=== PATIENT | female | born 1940 | race Caucasian/White ===

== ENCOUNTER 2018-10-18 08:12 | Inpatient (IN) | payer MEDICARE ==
[2018-10-18] MEDS ORDERED: IBUPROFEN 600 MG TAB PO STA (08:52)
[2018-10-18] MEDS ORDERED: LIDOCAINE 5% PATCH TOPICAL STA (08:53)
--- NOTE | 2018-10-18 08:56 | ED ---
General Adult HPI - General Chief complaint: Extremity Problem,Nontraumatic Stated complaint: RT hip pain Time Seen by Provider: 10/18/18 08:48 Source: patient, RN notes reviewed Mode of arrival: EMS Limitations: no limitations - History of Present Illness Initial comments: Patient 77-year-old female presented to the emergency room today with chief comp laint of right-sided hip pain. She does admit that over the last for 5 days she's been expressing pain discomfort to the right hip. She does admit that it's worse with certain movements when she goes from a laying to a sitting position. She states she first noticed this when she was getting out of bed a few days ago. 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 Does not remember any specific injury or trauma. She does admit that she feels some pain in the lower back that radiates just past the right hip. She states when she is laying down resting comfortably she feels good with movements pain increases. Patient states she's been using ibuprofen with some relief the symptoms. She denies any other complaints or symptoms. Denies any bowel or bladder incontinence retention. Denies any saddle anesthesia. Patient denies any recent fever, chills, shortness of breath, chest pain, abdominal pain, nausea or vomiting, headaches or visual changes, or any other complaints. - Related Data Previous Rx's Medication Instructions Recorded Lidocaine [Lidoderm 5% Patch] 1 patch TRANSDERM DAILY #7 patch 10/18/18 Allergies Allergy/AdvReac Type Severity Reaction Status Date / Time codeine Allergy Nausea & Verified 10/18/18 09:04 Vomiting Review of Systems ROS Statement: Those systems with pertinent positive or pertinent negative responses have been documented in the HPI. ROS Other: All systems not noted in ROS Statement are negative. Past Medical History Past Medical History: Heart Failure, Diabetes Mellitus, Hypertension History of Any Multi-Drug Resistant Organisms: None Reported Past Surgical History: Section, Cholecystectomy Past Psychological History: Anxiety Smoking Status: Never smoker Past Alcohol Use History: None Reported Past Drug Use History: None Reported General Exam - General Exam Comments Initial Comments: General: The patient is awake and alert, in no distress, and does not appear acutely ill. Eye: There is normal conjunctiva bilaterally. No signs of icterus. Ears, nose, mouth and throat: There are moist mucous membranes and no oral lesions. Neck: The neck is supple Cardiovascular: There is a regular rate and rhythm. No murmur, rub or gallop is appreciated. Respiratory: Lungs are clear to auscultation, respirations are non-labored, breath sounds are equal. No wheezes, stridor, rales, or rhonchi. Gastrointestinal: Admits soft nontender. Musculoskeletal: Normal ROM, no tenderness. Pedal pulses 2+. Pain worse going from laying to sitting position. No bony tenderness to the right hip. Mildly tender paravertebrally right lower lumbar. Neurological: A&O x 3. CN II-XII intact, There are no obvious motor or sensory deficits. Coordination appears grossly intact. Speech is normal. Skin: Skin is warm and dry and no rashes or lesions are noted. Psychiatric: Cooperative, appropriate mood & affect, normal judgment. Limitations: no limitations Course Vital Signs 10/18/18 10/18/18 10/18/18 08:19 08:30 09:00 Temperature 97.1 F L Pulse Rate 94 91 86 Respiratory 21 22 22 Rate Blood Pressure 146/100 146/101 153/56 O2 Sat by Pulse 100 100 99 Oximetry 10/18/18 09:30 Temperature Pulse Rate 89 Respiratory 18 Rate Blood Pressure 168/61 O2 Sat by Pulse 100 Oximetry Medical Decision Making - Medical Decision Making Patient's x-rays of both the lumbar spine and hip and pelvis show degenerative changes. No acute fracture dislocation. Results were discussed with the patient. Patient does admit to improvement after lidocaine patch in the emergency room. Patient will be given a prescription to continue. She is advised following up with family doctor in the next 2 days for further evalua tion and possible MRI. Patient advised return here to emergency room if any symptoms increase or worsen or for any other concerns. Disposition Clinical Impression: Acute lumbar radiculopathy Disposition: HOME SELF-CARE Condition: Good Instructions (If sedation given, give patient instructions): Lumbar Radiculopathy (ED) Additional Instructions: Please use medication as discussed. Please follow-up with family doctor in the next 2 days. Please return to emergency room if the symptoms increase or worsen or for any other concerns. Prescriptions: Lidocaine [Lidoderm 5% Patch] 1 patch TRANSDERM DAILY #7 patch Is patient prescribed a controlled substance at d/c from ED?: No Referrals: None,Stated [REFERRING] - 1-2 days Time of Disposition: 10:11
--- NOTE | 2018-10-18 09:49 | XR ---
EXAMINATION TYPE: XR lumbar spine 3V, AP view pelvis and 2 views right hip DATE OF EXAM: 10/18/2018 COMPARISON: NONE HISTORY: 77-year-old female with pain FINDINGS: Lumbar spine: Cholecystectomy clips. Degenerative levoconvex scoliosis. Moderate to advanced disc/endplate degenera tive change throughout, greatest at L1-L2 and L2-L3. Vertebral body heights are preserved. Hypertroph ic facet arthropathy throughout.*Disease lower lumbar spine. Bridging anterior endplate spondylosis l ower thoracic spine. Grade 1 anterolisthesis at L5-S1 and grade 1 retrolisthesis at L2-L3. Pelvis and right hip: Mild axial joint space narrowing in both hips with marginal spurring bilaterally. Mild generalized o steopenia. Some degenerative subarticular sclerosis at the SI joints is noted. Some vascular calcific ations are also present. No acute fracture, subluxation, or dislocation seen. IMPRESSION: Lumbar spine: 1. Degenerated levoconvex scoliosis. 2. Moderate to advanced disc/endplate degenerative change throughout, greatest at L1-L2 and L2-L3 3. 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 4. Grade 1 anterolisthesis at L5-S1 and grade 1 retrolisthesis at L2-L3. Pelvis and right hip: 1. Mild bilateral hip OA and mild osteopenia. No acute osseous abnormality seen.
[2018-10-18] MEDS ORDERED: MORPHINE SULFATE 4 MG/ML SYRINGE IM STA (11:07)
[2018-10-18] MEDS ORDERED: MORPHINE SULFATE 4 MG/ML SYRINGE IV STA (12:14)
--- NOTE | 2018-10-18 12:42 | CT ---
EXAMINATION TYPE: CT lumbar spine wo con DATE OF EXAM: 10/18/2018 12:35 PM COMPARISON: Lumbar spine x-ray from earlier today. HISTORY: low back pain CT DLP: 1195 mGycm Automated exposure control for dose reduction was used. Unenhanced CT of the lumbar spine was performed. Bone and soft tissue window settings are submitted as well as coronal and sagittal reconstructions. There are 5 lumbar-type vertebra redemonstrated. There is levoconvex scoliotic curvature redemonstrat ed upper lumbar spine. Grade 1 anterolisthesis of L5 on S1 is redemonstrated. Vertebral body heights are maintained. There is advanced disc space narrowing with vacuum disc phenomenon and endplate scler osis with moderate to advanced spurring L1-L2 and L2-L3 levels. There is moderate to advanced disc sp alfonzo narrowing with left lateral spurring and vacuum disc phenomenon L5-S1 level. No acute fracture or dislocation is evident. No large posterior disc herniations are seen on sagittal images. Review of axial images shows mild facet degenerative changes L4-L5 level and advanced facet degenerat lauren changes L5-S1 level. There is moderate to advanced left-sided neural foraminal narrowing L5-S1 le nura encroaching on left L5 nerve seen sagittal image 36 due to facet arthropathy and disc herniation. Diverticulosis of the sigmoid colon is seen. Cholecystectomy clips are present. There is moderate albaro cified plaque of aorta extending into iliac branch vessels. IMPRESSION: No acute fracture or dislocation. Multilevel degenerative changes as detailed above.
[2018-10-18 12:56] LABS: Glucose,Whole Blood 110 mg/dL (75-99)
--- NOTE | 2018-10-18 13:03 | ED ---
Medical Decision Making - Medical Decision Making Patient examined here in the emergency room. Has had multiple tablets with pain medication for her right-sided back pain radiating to the right hip. A CT of the lumbar spine was obtained showing degenerative changes. Patient still has increased pain when she sits up at bedside. She's had episodes of vomiting here ER due to the pain when she sits up. Patient does admit that pain is much improved when she is laying down. She denies any other pain. Denies any chest pain, shortness of breath. Patient's labs been reviewed. She denies any recent cough or congestion. Case discussed with attending physician Dr. Reyna who did discuss case with medicine physician Dr. De who will admit the patient for intractable pain - Lab Data Result diagrams: 10/18/18 13:00 10/18/18 13:00 Lab Results 10/18/18 10/18/18 10/18/18 Range/Units 12:55 13:00 13:00 WBC 13.7 H (3.8-10.6) k/uL RBC 3.37 L (3.80-5.40) m/uL Hgb 9.6 L (11.4-16.0) gm/dL Hct 30.2 L (34.0-46.0) % MCV 89.8 (80.0-100.0) fL MCH 28.4 (25.0-35.0) pg MCHC 31.7 (31.0-37.0) g/dL RDW 13.9 (11.5-15.5) % Plt Count 385 (150-450) k/uL Neutrophils % 82 % Lymphocytes % 13 % Monocytes % 3 % Eosinophils % 1 % Basophils % 0 % Neutrophils # 11.3 H (1.3-7.7) k/uL Lymphocytes # 1.8 (1.0-4.8) k/uL Monocytes # 0.5 (0-1.0) k/uL Eosinophils # 0.1 (0-0.7) k/uL Basophils # 0.0 (0-0.2) k/uL Sodium 141 (137-145) mmol/L Potassium 4.9 (3.5-5.1) mmol/L Chloride 112 H (98-107) mmol/L Carbon Dioxide 19 L (22-30) mmol/L Anion Gap 10 mmol/L BUN 37 H (7-17) mg/dL Creatinine 1.94 H (0.52-1.04) mg/dL Est GFR (CKD-EPI)AfAm 28 (>60 ml/min/1.73 sqM) Est GFR (CKD-EPI)NonAf 25 (>60 ml/min/1.73 sqM) Glucose 117 H (74-99) mg/dL POC Glucose (mg/dL) 110 H (75-99) mg/dL POC Glu [place] [employer] ID Yared Coronado Calcium 9.8 (8.4-10.2) mg/dL Total Bilirubin 0.4 (0.2-1.3) mg/dL AST 18 (14-36) U/L ALT 24 (9-52) U/L Alkaline Phosphatase 131 H (38-126) U/L Total Protein 7.5 (6.3-8.2) g/dL Albumin 3.8 (3.5-5.0) g/dL Disposition Clinical Impression: Acute lumbar radiculopathy, Intractable pain Disposition: ADMITTED IP TO THIS HOSP Condition: Good Instructions (If sedation given, give patient instructions): Lumbar Radiculopathy (ED) Additional Instructions: Please use medication as discussed. Please follow-up with family doctor in the next 2 days. Please return to emergency room if the symptoms increase or worsen or for any other concerns. Prescriptions: Lidocaine [Lidoderm 5% Patch] 1 patch TRANSDERM DAILY #7 patch Is patient prescribed a controlled substance at d/c from ED?: No Referrals: None,Stated [REFERRING] - 1-2 days Time of Disposition: 13:35
[2018-10-18 13:15] LABS: Basophils % (A) 0 %; Eosinophils # (A) 0.1 k/uL (0-0.7); Eosinophils % (A) 1 %; HCT 30.2 % (34.0-46.0); HGB 9.6 gm/dL (11.4-16.0); Lymphocytes # (A) 1.8 k/uL (1.0-4.8); Lymphocytes % (A) 13 %; MCH 28.4 pg (25.0-35.0); MCHC 31.7 g/dL (31.0-37.0); MCV 89.8 fL (80.0-100.0); Mean Platelet Volume 6.8; Monocytes # (A) 0.5 k/uL (0-1.0); Monocytes % (A) 3 %; Neutrophils # (A) 11.3 k/uL (1.3-7.7); Neutrophils % (A) 82 %; Platelet Count 385 k/uL (150-450); RBC 3.37 m/uL (3.80-5.40); RDW 13.9 % (11.5-15.5); WBC 13.7 k/uL (3.8-10.6)
[2018-10-18 13:26] LABS: Albumin 3.8 g/dL (3.5-5.0); Calcium 9.8 mg/dL (8.4-10.2); Potassium 4.9 mmol/L (3.5-5.1); Total Bilirubin 0.4 mg/dL (0.2-1.3); Total Protein 7.5 g/dL (6.3-8.2)
[2018-10-18 13:36] LABS: INR 0.9 (<1.2); Prothrombin Time 9.5 sec (9.0-12.0)
[2018-10-18] MEDS ORDERED: MORPHINE SULFATE 4 MG/ML SYRINGE IV PRN (13:36)
[2018-10-18] MEDS ORDERED: ONDANSETRON 4 MG/2 ML VIAL IVP PRN (13:36)
[2018-10-18] MEDS ORDERED: NALOXONE 0.4 MG/ML 1 ML VIAL IV PRN (13:36)
[2018-10-18] MEDS ORDERED: SODIUM CHLORIDE 0.9% 1,000 ML IV ONE (13:36)
[2018-10-18 13:44] LABS: Partial Thromboplastin Time 20.5 sec (22.0-30.0)
--- NOTE | 2018-10-18 17:13 | P.HPIM ---
History of Present Illness H&P Date: 10/18/18 Chief Complaint: Lower back pain The patient is a obese 65-year-old female with a past medical history of essential hypertension congestive heart failure of unknown type, hyperlipidemia, osteoarthritis who presents to the ER via private vehicle with chief complaint of lower back pain that began on Wednesday. Patient denies any history of fall, she reports moderate centralized lower back pain with occasional radiation down into her posterior thigh/hip area. Patient denies any lower extremity weakness she denies any numbness or tingling or saddle paresthesias. She reports trying to use [id number] ibuprofen and Tylenol without any significant improvement in her symptoms, but with actual progressive worsening of her pain. Patient denies any fevers chills or night sweats. In the ER the patient had a workup with imaging of her lower back C/ X-rays of the L-spine and pelvis consistent with degenerative scoliosis, moderate to advanced disc/endplate degenerative change L1/L2 and L2/L3, bilateral hip osteoarthritis and mild osteopenia. Patient was given morphine and ibuprofen the ER and recommended for admission for intractable lower back pain. Review of Systems Pertinent positives per HPI all other systems otherwise negative Past Medical History Past Medical History: Heart Failure, Diabetes Mellitus, Hyperlipidemia, Hypertension, Osteoarthritis (OA) Additional Past Medical History / Comment(s): IDDM type II, History of Any Multi-Drug Resistant Organisms: None Reported Past Surgical History: Section, Cholecystectomy Additional Past Surgical History / Comment(s): Bilateral cataract removals/lens implants. Past Anesthesia/Blood Transfusion Reactions: No Reported Reaction Additional Past Anesthesia/Blood Transfusion Reaction / Comment(s): Pt recieved blood in past without reaction (after childbirth) Smoking Status: Never smoker - Past Family History Father Additional Family Medical History / Comment(s): Father from an industrial exposure at the age of 42 yrs. Mother Family Medical History: No Reported History Additional Family Medical History / Comment(s): Mother lived to be 95 yrs old. Medications and Allergies Home Medications Medication Instructions Recorded Confirmed Type ALPRAZolam [Xanax] 0.25 mg PO DAILY PRN 10/18/18 10/18/18 History FLUoxetine HCL [PROzac] 40 mg PO DAILY 10/18/18 10/18/18 History Insulin Lispro Protamin/Lispro 10 unit SQ HS 10/18/18 10/18/18 History [humaLOG Mix 75-25 Kwikpen] Insulin Lispro Protamin/Lispro 20 unit SQ QAM 10/18/18 10/18/18 History [humaLOG Mix 75-25 Kwikpen] Losartan [Cozaar] 50 mg PO DAILY 10/18/18 10/18/18 History Metoprolol Tartrate [Lopressor] 50 mg PO BID 10/18/18 10/18/18 History NIFEdipine [NIFEdipine ER] 90 mg PO DAILY 10/18/18 10/18/18 History Oxybutynin Chloride [Ditropan] 5 mg PO BID 10/18/18 10/18/18 History Spironolactone [Aldactone] 25 mg PO DAILY 10/18/18 10/18/18 History metFORMIN HCL 1,000 mg PO BID 10/18/18 10/18/18 History Allergies Allergy/AdvReac Type Severity Reaction Status Date / Time codeine Allergy Nausea & Verified 10/18/18 17:15 Vomiting Physical Exam Vitals: Vital Signs Temp Pulse Resp BP Pulse Ox 10/18/18 15:00 97.7 F 79 18 130/51 98 10/18/18 14:30 88 18 125/56 97 10/18/18 14:00 98.3 F 75 20 123/66 99 10/18/18 13:30 84 20 137/61 100 10/18/18 12:00 88 20 122/106 95 10/18/18 11:30 80 20 143/72 99 10/18/18 11:00 76 18 169/75 99 10/18/18 10:53 77 18 167/75 97 10/18/18 10:30 77 22 137/59 98 10/18/18 10:20 97.1 F L 80 18 138/59 97 10/18/18 10:00 87 18 146/71 100 10/18/18 09:30 89 18 168/61 100 10/18/18 09:00 86 22 153/56 99 10/18/18 08:30 91 22 146/101 100 10/18/18 08:19 97.1 F L 94 21 146/100 100 Intake and Output 10/18/18 10/18/18 10/18/18 06:59 14:59 22:59 Other: Weight 81.193 kg Constitutional: No acute distress, conversant, pleasant Eyes: Anicteric sclerae, moist conjunctiva, no lid-lag, PERRLA ENMT: NC/AT,Oropharynx clear, no erythema, exudates Neck:Supple, FROM, no masses, or JVD, No carotid bruits; No thyromegaly Lungs: Clear to auscultation, Clear to percussion, Normal respiratory effort, no accessory muscle use Cardiovascular: Heart regular in rate and rhythm, No murmurs, gallops, or rubs no peripheral edema Abdominal: Soft Nontender, nom distended, no guarding, no rebound or rigidity, Normoactive bowel sounds No hepatomegaly, No splenomegaly, No palpable mass No abdominal wall hernia noted Skin: Normal temperature, tone, texture, turgor, No induration No subcutaneous nodules, No rash, lesions, No ulcers Extremities:No digital cyanosis No clubbing, Pedal pulses intact and symmetrical Radial pulses intact and symmetrical Normal gait and station, No calf tenderness, positive straight leg raise, Psychiatric: Alert and oriented to person, place and time, Appropriate affect Intact judgement Neuro: Muscles Strength 5/5 in all 4 extremities, Sensation to light touch grossly present throughout, Cranial nerves II-XII grossly intact. No focal sensory deficits Results CBC & Chem 7: 10/19/18 08:25 10/19/18 08:25 Labs: Abnormal Lab Results - Last 24 Hours (Table) 10/18/18 10/18/18 10/18/18 Range/Units 12:55 13:00 13:00 WBC 13.7 H (3.8-10.6) k/uL RBC 3.37 L (3.80-5.40) m/uL Hgb 9.6 L (11.4-16.0) gm/dL Hct 30.2 L (34.0-46.0) % Neutrophils # 11.3 H (1.3-7.7) k/uL APTT (22.0-30.0) sec Chloride 112 H (98-107) mmol/L Carbon Dioxide 19 L (22-30) mmol/L BUN 37 H (7-17) mg/dL Creatinine 1.94 H (0.52-1.04) mg/dL Glucose 117 H (74-99) mg/dL POC Glucose (mg/dL) 110 H (75-99) mg/dL Alkaline Phosphatase 131 H (38-126) U/L 10/18/18 Range/Units 13:00 WBC (3.8-10.6) k/uL RBC (3.80-5.40) m/uL Hgb (11.4-16.0) gm/dL Hct (34.0-46.0) % Neutrophils # (1.3-7.7) k/uL APTT 20.5 L (22.0-30.0) sec Chloride (98-107) mmol/L Carbon Dioxide (22-30) mmol/L BUN (7-17) mg/dL Creatinine (0.52-1.04) mg/dL Glucose (74-99) mg/dL POC Glucose (mg/dL) (75-99) mg/dL Alkaline Phosphatase (38-126) U/L Thrombosis Risk Factor Assmnt - Choose All That Apply Any of the Below Risk Factors Present?: Yes Each Factor Represents 1 point: Obesity (BMI >25) Other Risk Factors: Yes Each Risk Factor Represents 3 Points: Age 75 years or older Other congenital or acquired thrombophilia - If yes, enter type in comment: No Thrombosis Risk Factor Assessment Total Risk Factor Score: 4 Thrombosis Risk Factor Assessment Level: Moderate Risk Assessment and Plan (1) Lumbar degenerative disc disease Current Visit: Yes Status: Acute Code(s): M51.36 - OTHER INTERVERTEBRAL DISC DEGENERATION, LUMBAR REGION SNOMED Code(s): 40105750 (2) DJD (degenerative joint disease), lumbar Current Visit: Yes Status: Acute Code(s): M47.816 - SPONDYLOSIS W/O MYELOPATHY OR RADICULOPATHY, LUMBAR REGION SNOMED Code(s): 340242646 (3) Type 2 diabetes mellitus Current Visit: Yes Status: Acute Code(s): E11.9 - TYPE 2 DIABETES MELLITUS WITHOUT COMPLICATIONS SNOMED Code(s): 87908746 (4) Essential hypertension Current Visit: Yes Status: Acute Code(s): I10 - ESSENTIAL (PRIMARY) HYPERTENSION SNOMED Code(s): 10527649 (5) Osteopenia Current Visit: Yes Status: Acute Code(s): M85.80 - OTH DISRD OF BONE DENSITY AND STRUCTURE, UNSPECIFIED SITE SNOMED Code(s): 288854215 Plan: The patient is placed on observation anticipate a lesser than 2 midnight stay with intractable lower back pain with radiculopathy-like symptoms secondary to moderate to severe lumbar DDD/DJD as seen on lumbar imaging. We'll plan to consult Orthopedic service Dr. Singh for further recommendations, we'll attempt to control the pain with [place]/Lyrica and Toradol with plans to consult PT. Patient also noted to have osteopenia we'll check a vitamin D level and start Os -Jesús D. I will continue to follow her clinical course CODE STATUS Full code Anticipated discharge : 1- 2 days Time with Patient: Greater than 30
[2018-10-18 17:20] LABS: Glucose,Whole Blood 101 mg/dL (75-99)
[2018-10-18] MEDS: CALCIUM CARB-VIT D 500MG-200UN 1 EACH TAB PO SCH (17:35)
[2018-10-18] MEDS: KETOROLAC 30 MG/ML 1 ML VIAL IVP SCH ×2 (18:45→23:16)
[2018-10-18 20:22] LABS: Glucose,Whole Blood 165 mg/dL (75-99)
[2018-10-18] MEDS: PREGABALIN 75 MG CAP PO SCH (21:48)
[2018-10-19] MEDS: KETOROLAC 30 MG/ML 1 ML VIAL IVP SCH (06:16)
[2018-10-19 07:13] LABS: Glucose,Whole Blood 90 mg/dL (75-99)
[2018-10-19] MEDS: CALCIUM CARB-VIT D 500MG-200UN 1 EACH TAB PO SCH ×3 (07:35→16:40)
[2018-10-19] MEDS: INSULIN ASPART (NovoLOG) 100 UNIT/ML VIAL SQ SCH ×5 (07:35→20:56)
[2018-10-19] MEDS: PREGABALIN 75 MG CAP PO SCH ×2 (07:35→21:40)
[2018-10-19 08:40] LABS: Basophils # (A) 0.1 k/uL (0-0.2); Basophils % (A) 1 %; Eosinophils # (A) 0.4 k/uL (0-0.7); Eosinophils % (A) 4 %; HCT 36.3 % (34.0-46.0); HGB 11.1 gm/dL (11.4-16.0); Hypochromasia Moderate; Lymphocytes # (A) 3.7 k/uL (1.0-4.8); Lymphocytes % (A) 32 %; MCH 28.6 pg (25.0-35.0); MCHC 30.6 g/dL (31.0-37.0); MCV 93.4 fL (80.0-100.0); Mean Platelet Volume 6.2; Monocytes # (A) 0.7 k/uL (0-1.0); Monocytes % (A) 6 %; Neutrophils # (A) 6.5 k/uL (1.3-7.7); Neutrophils % (A) 56 %; Platelet Count 388 k/uL (150-450); RBC 3.89 m/uL (3.80-5.40); WBC 11.5 k/uL (3.8-10.6)
[2018-10-19 08:45] LABS: Appearance,Urine Turbid (Clear); Bacteria,Urine Few /hpf; Bilirubin,Urine Negative (Negative); Blood,Urine Moderate (Negative); Color,Urine Yellow; Glucose,Urine (UA) Negative (Negative); Ketones,Urine Negative (Negative); Leukocyte Esterase,Urine Large (Negative); Nitrite,Urine Positive (Negative); Protein,Urine 2+ (Negative); RBC,Urine 84 /hpf (0-5); Urobilinogen,Urine <2.0 mg/dL (<2.0); WBC,Urine >182 /hpf (0-5)
[2018-10-19 08:47] LABS: Specific Gravity,Urine 1.018 (1.001-1.035)
[2018-10-19 09:20] LABS: Calcium 10.2 mg/dL (8.4-10.2); Potassium 5.3 mmol/L (3.5-5.1)
--- NOTE | 2018-10-19 11:23 | P.PN ---
Subjective Progress Note Date: 10/19/18 Patient is seen and examined at bedside, also reporting significant pain more so in her right hip with radiation down the lateral right thigh to the knee that is worse with weightbearing. Working with PT has been up with assistance to get to the commode . Patient reports previously taking significant amount of ibuprofen approximately 400 mg up to 5 times daily when the pain was really bad. Patient's creatinine elevated this today to 2.17. Leukocytosis of 11.5. Patient afebrile Objective - Vital Signs Vital signs: Vital Signs Temp 97.0 F L 10/19/18 07:05 Pulse 87 10/19/18 07:05 Resp 18 10/19/18 07:05 BP 136/69 10/19/18 07:05 Pulse Ox 97 10/19/18 07:05 Intake & Output 10/18/18 10/19/18 10/19/18 18:59 06:59 18:59 Weight 81.193 kg 78.9 kg Other: Voiding Method Bedside Commode Bedside Commode # Voids 1 - Exam Constitutional: No acute distress, conversant, pleasant Eyes: Anicteric sclerae, moist conjunctiva, no lid-lag, PERRLA ENMT: NC/AT,Oropharynx clear, no erythema, exudates Neck:Supple, FROM, no masses, or JVD, No carotid bruits; No thyromegaly Lungs: Clear to auscultation, Clear to percussion, Normal respiratory effort, no accessory muscle use Cardiovascular: Heart regular in rate and rhythm, No murmurs, gallops, or rubs no peripheral edema Abdominal: Soft Nontender, nom distended, no guarding, no rebound or rigidity, Normoactive bowel sounds No hepatomegaly, No splenomegaly, No palpable mass No abdominal wall hernia noted Skin: Normal temperature, tone, texture, turgor, No induration No subcutaneous nodules, No rash, lesions, No ulcers Extremities:No digital cyanosis No clubbing, Pedal pulses intact and symmetrical Radial pulses intact and symmetrical Normal gait and station, No calf tenderness Psychiatric: Alert and oriented to person, place and time, Appropriate affect Intact judgement Neuro: Muscles Strength 5/5 in all 4 extremities, Sensation to light touch grossly present throughout, Cranial nerves II-XII grossly intact. No focal sensory deficits - Labs CBC & Chem 7: 10/19/18 08:25 10/19/18 08:25 Labs: Abnormal Lab Results - Last 24 Hours (Table) 10/18/18 10/18/18 10/18/18 Range/Units 12:55 13:00 13:00 WBC 13.7 H (3.8-10.6) k/uL RBC 3.37 L (3.80-5.40) m/uL Hgb 9.6 L (11.4-16.0) gm/dL Hct 30.2 L (34.0-46.0) % MCHC (31.0-37.0) g/dL Neutrophils # 11.3 H (1.3-7.7) k/uL APTT (22.0-30.0) sec Potassium (3.5-5.1) mmol/L Chloride 112 H (98-107) mmol/L Carbon Dioxide 19 L (22-30) mmol/L BUN 37 H (7-17) mg/dL Creatinine 1.94 H (0.52-1.04) mg/dL Glucose 117 H (74-99) mg/dL POC Glucose (mg/dL) 110 H (75-99) mg/dL Alkaline Phosphatase 131 H (38-126) U/L Urine Appearance (Clear) Urine Protein (Negative) Urine Blood (Negative) Urine Nitrite (Negative) Ur Leukocyte Esterase (Negative) Urine RBC (0-5) /hpf Urine WBC (0-5) /hpf Urine WBC Clumps (None) /hpf Urine Bacteria (None) /hpf 10/18/18 10/18/18 10/18/18 Range/Units 13:00 17:14 20:20 WBC (3.8-10.6) k/uL RBC (3.80-5.40) m/uL Hgb (11.4-16.0) gm/dL Hct (34.0-46.0) % MCHC (31.0-37.0) g/dL Neutrophils # (1.3-7.7) k/uL APTT 20.5 L (22.0-30.0) sec Potassium (3.5-5.1) mmol/L Chloride (98-107) mmol/L Carbon Dioxide (22-30) mmol/L BUN (7-17) mg/dL Creatinine (0.52-1.04) mg/dL Glucose (74-99) mg/dL POC Glucose (mg/dL) 101 H 165 H (75-99) mg/dL Alkaline Phosphatase (38-126) U/L Urine Appearance (Clear) Urine Protein (Negative) Urine Blood (Negative) Urine Nitrite (Negative) Ur Leukocyte Esterase (Negative) Urine RBC (0-5) /hpf Urine WBC (0-5) /hpf Urine WBC Clumps (None) /hpf Urine Bacteria (None) /hpf 10/19/18 10/19/18 10/19/18 Range/Units 08:25 08:25 08:25 WBC 11.5 H (3.8-10.6) k/uL RBC (3.80-5.40) m/uL Hgb 11.1 L (11.4-16.0) gm/dL Hct (34.0-46.0) % MCHC 30.6 L (31.0-37.0) g/dL Neutrophils # (1.3-7.7) k/uL APTT (22.0-30.0) sec Potassium 5.3 H (3.5-5.1) mmol/L Chloride 111 H (98-107) mmol/L Carbon Dioxide 21 L (22-30) mmol/L BUN 38 H (7-17) mg/dL Creatinine 2.17 H (0.52-1.04) mg/dL Glucose 174 H (74-99) mg/dL POC Glucose (mg/dL) (75-99) mg/dL Alkaline Phosphatase (38-126) U/L Urine Appearance Turbid H (Clear) Urine Protein 2+ H (Negative) Urine Blood Moderate H (Negative) Urine Nitrite Positive H (Negative) Ur Leukocyte Esterase Large H (Negative) Urine RBC 84 H (0-5) /hpf Urine WBC >182 H (0-5) /hpf Urine WBC Clumps Many H (None) /hpf Urine Bacteria Few H (None) /hpf Assessment and Plan (1) Sepsis Narrative/Plan: * Patient afebrile leukocytosis improving * Urinalysis suggestive of UTI urine cultures ordered, and blood cultures ordered * Hemodynamically stable * Continue with Rocephin Current Visit: Yes Status: Acute Code(s): A41.9 - SEPSIS, UNSPECIFIED ORGANISM SNOMED Code(s): 33602055 (2) Acute kidney injury Narrative/Plan: * Creatinine up to 2.17 with mild hyperkalemia at 5.3, No previous baseline creatinine * Likely secondary to NSAID use to treat her acute lower back pain * Toradol , nephrotoxic medications such as Cozaar and spironolactone held, metformin also held * Renal ultrasound ordered and nephrology consulted Current Visit: Yes Status: Acute Code(s): N17.9 - ACUTE KIDNEY FAILURE, UNSPECIFIED SNOMED Code(s): 85031244 (3) UTI (urinary tract infection) Narrative/Plan: * Urine cultures pending * Started on Rocephin Current Visit: Yes Status: Acute Code(s): N39.0 - URINARY TRACT INFECTION, SITE NOT SPECIFIED SNOMED Code(s): 04605655 (4) Lumbar degenerative disc disease Narrative/Plan: * Presented with intractable lower back pain * Ortho spine Dr. Singh consulted for further recommendations Current Visit: Yes Status: Acute Code(s): M51.36 - OTHER INTERVERTEBRAL DISC DEGENERATION, LUMBAR REGION SNOMED Code(s): 77787885 (5) DJD (degenerative joint disease), lumbar Current Visit: Yes Status: Acute Code(s): M47.816 - SPONDYLOSIS W/O MYELOPATHY OR RADICULOPATHY, LUMBAR REGION SNOMED Code(s): 983837585 (6) Type 2 diabetes mellitus Narrative/Plan: * Blood sugars appear stable * Continue home regimen and correctional scale insulin coverage * Continue Accu-Cheks A1c ordered Current Visit: Yes Status: Acute Code(s): E11.9 - TYPE 2 DIABETES MELLITUS WITHOUT COMPLICATIONS SNOMED Code(s): 71529309 (7) Essential hypertension Narrative/Plan: * Blood pressure stable and controlled today after resuming home hypertensive regimen of metoprolol * Cozaar and spironolactone held secondary to increasing creatinine * We'll continue to monitor Current Visit: Yes Status: Acute Code(s): I10 - ESSENTIAL (PRIMARY) HYPERTENSION SNOMED Code(s): 44499391 (8) Osteopenia Narrative/Plan: * As determined on hip x-ray * Continue with Os-Jesús D Current Visit: Yes Status: Acute Code(s): M85.80 - OTH DISRD OF BONE DENSITY AND STRUCTURE, UNSPECIFIED SITE SNOMED Code(s): 193486529 Plan: * I will change patient to inpatient status * Anticipated discharge 1-2 days
[2018-10-19 11:50] LABS: Glucose,Whole Blood 145 mg/dL (75-99)
[2018-10-19] MEDS: HYDROcodone/APAP 5-325MG 1 EACH TAB PO PRN ×2 (11:51→21:49)
[2018-10-19] MEDS: INSULN ASP PRT/INSULIN ASPART 100 UNIT/ML 10 ML VIAL SQ SCH (11:51)
--- NOTE | 2018-10-19 12:30 | US ---
EXAMINATION TYPE: US renals and bladder DATE OF EXAM: 10/19/2018 COMPARISON: NONE CLINICAL HISTORY: PETE vs CKD. EXAM MEASUREMENTS: Right Kidney: 8.9 x 4.5 x 4.8 cm Left Kidney: 10.2 x 5.0 x 5.2 cm Right Kidney: No hydronephrosis or masses seen Left Kidney: No hydronephrosis or masses seen Bladder: distended Bilateral Jets seen: no IMPRESSION: 1. Normal renal ultrasound.
--- NOTE | 2018-10-19 15:25 | XR ---
EXAMINATION TYPE: XR chest 2V DATE OF EXAM: 10/19/2018 COMPARISON: None INDICATION: Cough congestion TECHNIQUE: Frontal and lateral views of the chest are obtained. FINDINGS: The heart size is normal. The pulmonary vasculature is normal. There is a 1 cm nodule within the right lower lobe may be a calcified granuloma. Follow-up for stabil ity course of 2 years is recommended. A small densities may be along the left diaphragm. Suspicious i nfiltrate is not identified. IMPRESSION: 1. Suspected granuloma and additional nodularities along the left diaphragm. Follow-up chest x-ray in 3 months is recommended to confirm stability. 2. Suspicious focal consolidation is not identified.
[2018-10-19 17:22] LABS: Glucose,Whole Blood 76 mg/dL (75-99)
--- NOTE | 2018-10-19 17:28 | P.CNOR ---
History of Present Illness - [facility] Consult date: 10/19/18 Requesting physician: Filiberto De Consult reason: other (Right lower extremity radiculopathy; inability ambulate due to pain) History of present illness: Patient is a very pleasant 77-year-old female who is seen and examined the bedside for further evaluation for right lower extremity radiculopathy after consultation was placed. Patient states this past 10/14/2018, she s tarted to experience some pain in the right buttock radiating down the right posterior/posterior lateral leg. She has noticed significant difficulty with ambulation as her pain is significantly exacerbated weightbearing on the right lower extremity. She denies any specific injuries. She has not had any falls. She states her symptoms continued to worsen over the weekend and became unbearable yesterday, 10/18/2018. She presented to the emergency department for further evaluation. X-rays of the lumbar spine, hip, and pelvis were taken at that time. She also had a CT of the lumbar spine performed. Since her admittance her symptoms have not had any significant improvement. She denies any previous back surgery. She states she has never experienced symptoms in her lower extremity previously. She has some mild low back pain that is well controlled. She states she is not currently experiencing significant back pain. Her right lower extremity radiculopathy is her most significant symptom. She denies any left lower extremity radiculopathy. She denies any lower extremity weakness bilaterally She does have a medical history which includes heart failure, diabetes mellitus, hyperlipidemia, hypertension, and osteoarthritis. Past Medical History Past Medical History: Heart Failure, Diabetes Mellitus, Hyperlipidemia, Hypertension, Osteoarthritis (OA) Additional Past Medical History / Comment(s): IDDM type II, History of Any Multi-Drug Resistant Organisms: None Reported Past Surgical History: Section, Cholecystectomy Additional Past Surgical History / Comment(s): Bilateral cataract removals/lens implants. Past Anesthesia/Blood Transfusion Reactions: No Reported Reaction Additional Past Anesthesia/Blood Transfusion Reaction / Comm: Pt recieved blood in past without reaction (after childbirth) Smoking Status: Never smoker - Past Family History Father Additional Family Medical History / Comment(s): Father from an industrial exposure at the age of 42 yrs. Mother Family Medical History: No Reported History Additional Family Medical History / Comment(s): Mother lived to be 95 yrs old. Medications and Allergies Home Medications Medication Instructions Recorded Confirmed Type ALPRAZolam [Xanax] 0.25 mg PO DAILY PRN 10/18/18 10/18/18 History FLUoxetine HCL [PROzac] 40 mg PO DAILY 10/18/18 10/18/18 History Insulin Lispro Protamin/Lispro 10 unit SQ HS 10/18/18 10/18/18 History [humaLOG Mix 75-25 Kwikpen] Insulin Lispro Protamin/Lispro 20 unit SQ QAM 10/18/18 10/18/18 History [humaLOG Mix 75-25 Kwikpen] Lidocaine [Lidoderm 5% Patch] 1 patch TRANSDERM DAILY #7 patch 10/18/18 Rx Losartan [Cozaar] 50 mg PO DAILY 10/18/18 10/18/18 History Metoprolol Tartrate [Lopressor] 50 mg PO BID 10/18/18 10/18/18 History NIFEdipine [NIFEdipine ER] 90 mg PO DAILY 10/18/18 10/18/18 History Oxybutynin Chloride [Ditropan] 5 mg PO BID 10/18/18 10/18/18 History Spironolactone [Aldactone] 25 mg PO DAILY 10/18/18 10/18/18 History metFORMIN HCL 1,000 mg PO BID 10/18/18 10/18/18 History Allergies Allergy/AdvReac Type Severity Reaction Status Date / Time codeine Allergy Nausea & Verified 10/18/18 17:15 Vomiting Physical Examination Physical exam: Patient is awake, alert, and oriented 3 Vital signs stable Good chest excursion with deep inspiration and expiration Abdomen soft nontender Examination of lumbar spine reveals skin is intact with no abrasions, lacerati ons, or bruises; no erythema, purulence or signs of infection No significant pain with palpation of the lumbar spine and lumbosacral spine Dorsiflexion, plantarflexion, and extensor hallucis longus positive sustained bilaterally Lower extremity strength 5/5 bilaterally No lower extremity hyperreflexia bilaterally No signs or symptoms of DVT; no calf pain No pain with internal and external rotation of the hips bilaterally Neurovascularly intact Results Pertinent studies: CT of the lumbar spine taken on 10/18/2018: Degenerative levoconvex scoliosis; facet hypertrophy throughout the lower lumbar spine; L1-2 severe degenerative disc disease, asymmetric degenerative disc disease with endplate change and anterior bridging osteophytic spurring; L2-3 severe degenerative disc disease, asymmetric degenerative disc disease retrolisthesis, and endplate degenerative changes and osteophytic spurring; L5-S1 spondylolisthesis and degenerative disc disease and advanced facet degenerative change resulting in moderate to advanced left neural foraminal narrowing; no evidence of vertebral body compression fracture X-rays lumbosacral spine taken on 10/18/2018: Degenerative levoconvex scoliosis; facet hypertrophy throughout the lower lumbar spine; L1-2 severe degenerative disc disease with endplate change and anterior bridging osteophytic spurring; L2-3 severe degenerative disc disease, retrolisthesis, and endplate degenerative changes and osteophytic spurring; L5-S1 spondylolisthesis and degenerative disc disease X-rays of the pelvis and right hip taken on 10/18/2018: Mild osteoarthritic bilateral hip joint spacing with marginal spurring; degenerative sclerosis of the SI joints; mild generalized osteopenia; no evidence of fracture, subluxation, or dislocation - Labs Labs: Abnormal Lab Results - Last 24 Hours (Table) 10/18/18 10/18/18 10/19/18 Range/Units 17:14 20:20 08:25 WBC 11.5 H (3.8-10.6) k/uL Hgb 11.1 L (11.4-16.0) gm/dL MCHC 30.6 L (31.0-37.0) g/dL Potassium (3.5-5.1) mmol/L Chloride (98-107) mmol/L Carbon Dioxide (22-30) mmol/L BUN (7-17) mg/dL Creatinine (0.52-1.04) mg/dL Glucose (74-99) mg/dL POC Glucose (mg/dL) 101 H 165 H (75-99) mg/dL Urine Appearance (Clear) Urine Protein (Negative) Urine Blood (Negative) Urine Nitrite (Negative) Ur Leukocyte Esterase (Negative) Urine RBC (0-5) /hpf Urine WBC (0-5) /hpf Urine WBC Clumps (None) /hpf Urine Bacteria (None) /hpf 10/19/18 10/19/18 10/19/18 Range/Units 08:25 08:25 11:47 WBC (3.8-10.6) k/uL Hgb (11.4-16.0) gm/dL MCHC (31.0-37.0) g/dL Potassium 5.3 H (3.5-5.1) mmol/L Chloride 111 H (98-107) mmol/L Carbon Dioxide 21 L (22-30) mmol/L BUN 38 H (7-17) mg/dL Creatinine 2.17 H (0.52-1.04) mg/dL Glucose 174 H (74-99) mg/dL POC Glucose (mg/dL) 145 H (75-99) mg/dL Urine Appearance Turbid H (Clear) Urine Protein 2+ H (Negative) Urine Blood Moderate H (Negative) Urine Nitrite Positive H (Negative) Ur Leukocyte Esterase Large H (Negative) Urine RBC 84 H (0-5) /hpf Urine WBC >182 H (0-5) /hpf Urine WBC Clumps Many H (None) /hpf Urine Bacteria Few H (None) /hpf H & H 10/18/18 10/19/18 Range/Units 13:00 08:25 Hgb 9.6 L 11.1 L (11.4-16.0) gm/dL Hct 30.2 L 36.3 (34.0-46.0) % Coagulation 10/18/18 Range/Units 13:00 INR 0.9 (<1.2) Result Diagrams: 10/19/18 08:25 10/19/18 08:25 Assessment and Plan Assessment: Assessment: Acute right lower extremity radiculopathy Inability to ambulate due to pain right lower extremity Low back pain L5-S1 spondylolisthesis Lumbar and lumbosacral facet hypertrophy Lumbar and lumbosacral degenerative disc disease History of heart failure, diabetes mellitus, hyperlipidemia, hypertension, and osteoarthritis (1) Lumbar back pain with radiculopathy affecting right lower extremity Current Visit: Yes Status: Acute Code(s): M54.16 - RADICULOPATHY, LUMBAR REGION SNOMED Code(s): 154865097 (2) Spondylolisthesis at L5-S1 level Current Visit: Yes Status: Acute Code(s): M43.17 - SPONDYLOLISTHESIS, LUMBOSACRAL REGION SNOMED Code(s): 731914668 (3) Lumbar facet arthropathy Current Visit: Yes Status: Acute Code(s): M47.816 - SPONDYLOSIS W/O MYE LOPATHY OR RADICULOPATHY, LUMBAR REGION SNOMED Code(s): 516440349 (4) Facet arthropathy, lumbosacral Current Visit: Yes Status: Acute Code(s): M47.817 - SPONDYLS W/O MYELOPATHY OR RADICULOPATHY, LUMBOSACR REGION SNOMED Code(s): 03715718 (5) Degenerative scoliosis Current Visit: Yes Status: Acute Code(s): M41.9 - SCOLIOSIS, UNSPECIFIED SNOMED Code(s): 961836857 (6) Unable to ambulate Current Visit: Yes Status: Acute Code(s): R26.2 - DIFFICULTY IN WALKING, NOT ELSEWHERE CLASSIFIED SNOMED Code(s): 699984425 (7) Facet arthritis, degenerative, L5-S1 level, lumbosacral spine Current Visit: Yes Status: Acute Code(s): M47.817 - SPONDYLS W/O MYELOPATHY OR RADICULOPATHY, LUMBOSACR REGION SNOMED Code(s): 739738401 (8) History of heart failure Current Visit: Yes Status: Acute Code(s): Z86.79 - PERSONAL HISTORY OF OTHER DISEASES OF THE CIRCULATORY SYSTEM SNOMED Code(s): 419605344 (9) History of diabetes mellitus Current Visit: Yes Status: Acute Code(s): Z86.39 - PERSONAL HISTORY OF ENDO, NUTRITIONAL AND METABOLIC DISEASE SNOMED Code(s): 047491057 (10) History of hypertension Current Visit: Yes Status: Acute Code(s): Z86.79 - PERSONAL HISTORY OF OTHER DISEASES OF THE CIRCULATORY SYSTEM SNOMED Code(s): 498697722 (11) History of hyperlipidemia Current Visit: Yes Status: Acute Code(s): Z86.39 - PERSONAL HISTORY OF ENDO, NUTRITIONAL AND METABOLIC DISEASE SNOMED Code(s): 178755528 (12) Lumbar degenerative disc disease Current Visit: Yes Status: Acute Code(s): M51.36 - OTHER INTERVERTEBRAL DISC DEGENERATION, LUMBAR REGION SNOMED Code(s): 73252675 Plan: Plan: 1. Patient has been discussed in detail with Dr. Damián Singh. After physical examination the patient, further discussion with the patient, and review of imaging, will currently plan to continue with conservative treatment at this time. She is experiencing acute and significant right lower extremity radiculopathy radiating to the buttock down the right posterior posterior lateral leg. She has had increased difficulty with ambulation on the right lower extremity due to her pain. She denies any lower extremity weakness bilaterally. She denies any left lower extremity radiculopathy. She denies any recent injuries. CT imaging x-ray imaging does show evidence of nipple Gent degenerative changes of her umbo sacral spine. She states these symptoms are new for her and she has not ever experience these symptoms previously. We will currently plan for consultation with pain management to discuss further treatment options including the possibility of injections. We are not currently planning for acute surgical intervention. We will plan to have her follow-up in the outpatient setting for further evaluation. We will discuss further treatment options at that time depending how she is progressing to conservative treatment. At this time, she is clear for discharge from orthopedic spine standpoint. We will plan have her follow-up in outpatient setting approximately 2-3 weeks for further evaluation. She may follow-up with Curt Sol PA-C or Dr. Damián Singh at [facility]. 2. Patient currently waiting for consultation with pain management 3. Patient will continue be seeing than by medicine for her other medical diagnoses. Time with Patient: Greater than 30 (Including obtaining history, physical examination, reviewing of imaging, and dictation.)
[2018-10-19 20:44] LABS: Glucose,Whole Blood 128 mg/dL (75-99)
[2018-10-19] MEDS ORDERED: metFORMIN 500 MG TAB PO SCH (21:00)
[2018-10-19] MEDS: METOPROLOL TARTRATE 50 MG TAB PO SCH (21:40)
[2018-10-20] MEDS: INSULIN ASPART (NovoLOG) 100 UNIT/ML VIAL SQ SCH ×5 (07:18→21:05)
[2018-10-20 07:31] LABS: Glucose,Whole Blood 89 mg/dL (75-99)
[2018-10-20 07:54] LABS: Basophils % (A) 0 %; Eosinophils # (A) 0.6 k/uL (0-0.7); Eosinophils % (A) 7 %; HCT 33.4 % (34.0-46.0); Hypochromasia Moderate; Lymphocytes % (A) 21 %; MCH 28.1 pg (25.0-35.0); MCHC 30.1 g/dL (31.0-37.0); MCV 93.3 fL (80.0-100.0); Mean Platelet Volume 6.6; Monocytes # (A) 0.7 k/uL (0-1.0); Monocytes % (A) 7 %; Neutrophils # (A) 5.8 k/uL (1.3-7.7); Neutrophils % (A) 63 %; Platelet Count 293 k/uL (150-450); RBC 3.58 m/uL (3.80-5.40); RDW 13.9 % (11.5-15.5); WBC 9.3 k/uL (3.8-10.6)
[2018-10-20 08:04] LABS: Calcium 9.4 mg/dL (8.4-10.2); Potassium 5.6 mmol/L (3.5-5.1)
--- NOTE | 2018-10-20 08:57 | P.PN ---
Progress Note - Text Progress Note Date: 10/20/18 The patient is seen and examined today bedside. I reviewed a consultation from yesterday so the patient today. I reviewed the computed tomography scan as well and the lumbar x-rays. The patient has history of chronic issues at her lower back and is having new right lower extremity radicular symptoms. She did have a specific injury or trauma. She is not having specific weakness but has great difficulty when she tries to mobilize has the pain significant increases when she puts weight on her right leg. She is able to lift her leg up off the bed is not having intrinsic hip or groin pain. The full history and physical was performed in the consultation done yesterday which I reviewed discussed and I agree with. On exam today she has good range of motion her right leg while she is laying in bed. She is able lift her leg up off her chair independently. She has sustained dorsal to plantar flexion and EHL intact. She has good strength with hip flexion. There is no pain with internal/external rotation or hip. Her left lower extremity is full active and passive range of motion. Her chest is good excursion deep inspiration and expiration abdomen soft nontender neck is nontender palpation range of motion Her computed tomography scan of her lumbar spine and her x-rays show significant chronic degenerative changes particularly at L1 to L2 3 with severe disc degeneration shows has severe disc degeneration L5-S1 with slight spondylolisthesis. The computed tomography scan shows significant disc protrusion L3 4 L4 5 and L5-S1 with central and bilateral foraminal stenosis. Assessment and plan The patient has acute exacerbation of chronic issues at her lumbar spine New right lower extremity radiculopathy without weakness Inability to ambulate due to low back and lower extremity symptoms The patient has an acute exacerbation of her lumbar issues without specific trauma. She has severe disc degeneration and stenosis which is chronic for her but has an acute exacerbation which should make some improvement with dedicated conservative treatment. I agree with the medications for her and with interventional pain management seeing her. Interventional pain management could give her significant benefit with epidural steroid injection which may alleviate her lower extremity symptoms to significant degree. If this is effective for her than it is okay for her to continue to mobilize and be released to discharge home. She would be a candidate for further interventional pain management, physical therapy, and continued conservative care. If she were to fail conservative care she could be a candidate for surgical intervention as well but we can determine this essentially an outpatient basis when she is more stabilized with her conservative management. We do not have acute surgical intervention planned at this point.
[2018-10-20] MEDS ORDERED: SPIRONOLACTONE 25 MG TAB PO SCH (09:00)
[2018-10-20] MEDS ORDERED: LOSARTAN 50 MG TAB PO SCH (09:00)
[2018-10-20] MEDS: METOPROLOL TARTRATE 50 MG TAB PO SCH ×2 (09:26→21:05)
[2018-10-20] MEDS: HYDROcodone/APAP 5-325MG 1 EACH TAB PO PRN ×2 (09:26→17:14)
[2018-10-20] MEDS: CALCIUM CARB-VIT D 500MG-200UN 1 EACH TAB PO SCH ×3 (09:26→17:14)
[2018-10-20] MEDS: INSULN ASP PRT/INSULIN ASPART 100 UNIT/ML 10 ML VIAL SQ SCH (09:27)
[2018-10-20] MEDS: FLUoxetine HCL 20 MG CAP PO SCH (09:27)
[2018-10-20] MEDS: PREGABALIN 75 MG CAP PO SCH ×2 (09:27→21:04)
[2018-10-20] MEDS: NIFEdipine XL 90 MG TAB.ER.24 PO SCH (09:27)
--- NOTE | 2018-10-20 10:52 | P.PN ---
Subjective Progress Note Date: 10/20/18 Patient seen and examined at bedside, sitting up in chair. Still complain of severe pain with ambulation or weightbearing with pain radiating from the right hip down the right lateral thigh to the level of the knee. Patient denies any subjective fevers chills or night sweats. No acute events overnight Objective - Vital Signs Vital signs: Vital Signs Temp 97.8 F 10/20/18 06:46 Pulse 60 10/20/18 06:46 Resp 15 10/20/18 06:46 BP 139/72 10/20/18 06:46 Pulse Ox 94 L 10/20/18 06:46 Intake & Output 10/19/18 10/20/18 10/20/18 18:59 06:59 18:59 Intake Total 480 1200 Balance 480 1200 Weight 78.9 kg 80.7 kg Intake: Intake, IV Titration 1200 Amount Sodium Chloride 0.9% 1, 800 000 ml @ 100 mls/hr IV . Q10H [facility] Rx#:[id number] cefTRIAXone 1 gm In 400 Sodium Chloride 0.9% 50 ml @ 100 mls/hr IVPB Q24HR [facility] Rx#:[id number] Oral 480 Other: Voiding Method Bedside Commode # Voids 2 2 1 # Bowel Movements 0 - Exam Constitutional: No acute distress, conversant, pleasant Eyes: Anicteric sclerae, moist conjunctiva, no lid-lag, PERRLA ENMT: NC/AT,Oropharynx clear, no erythema, exudates Neck:Supple, FROM, no masses, or JVD, No carotid bruits; No thyromegaly Lungs: Clear to auscultation, Clear to percussion, Normal respiratory effort, no accessory muscle use Cardiovascular: Heart regular in rate and rhythm, No murmurs, gallops, or rubs no peripheral edema Abdominal: Soft Nontender, nom distended, no guarding, no rebound or rigidity, Normoactive bowel sounds No hepatomegaly, No splenomegaly, No palpable mass No abdominal wall hernia noted Skin: Normal temperature, tone, texture, turgor, No induration No subcutaneous nodules, No rash, lesions, No ulcers Extremities: Good range of motion of the right leg and hip no pain with internal/external rotation of hip Psychiatric: Alert and oriented to person, place and time, Appropriate affect Intact judgement Neuro: Muscles Strength 5/5 in all 4 extremities, Sensation to light touch grossly present throughout, Cranial nerves II-XII grossly intact. No focal sensory deficits - Labs CBC & Chem 7: 10/20/18 07:25 10/20/18 07:25 Labs: Abnormal Lab Results - Last 24 Hours (Table) 10/18/18 10/19/18 10/19/18 Range/Units 08:25 11:47 20:43 RBC (3.80-5.40) m/uL Hgb (11.4-16.0) gm/dL Hct (34.0-46.0) % MCHC (31.0-37.0) g/dL Potassium (3.5-5.1) mmol/L BUN (7-17) mg/dL Creatinine (0.52-1.04) mg/dL POC Glucose (mg/dL) 145 H 128 H (75-99) mg/dL Vitamin D 25-Hydroxy 22.2 L (30.0-100.0) ng/mL 10/20/18 10/20/18 Range/Units 07:25 07:25 RBC 3.58 L (3.80-5.40) m/uL Hgb 10.0 L (11.4-16.0) gm/dL Hct 33.4 L (34.0-46.0) % MCHC 30.1 L (31.0-37.0) g/dL Potassium 5.6 H (3.5-5.1) mmol/L BUN 41 H (7-17) mg/dL Creatinine 2.25 H (0.52-1.04) mg/dL POC Glucose (mg/dL) (75-99) mg/dL Vitamin D 25-Hydroxy (30.0-100.0) ng/mL Assessment and Plan (1) Sepsis Narrative/Plan: * Patient afebrile leukocytosis improving * Urinalysis suggestive of UTI urine cultures ordered, and blood cultures ordered * Hemodynamically stable * Continue with Rocephin Current Visit: Yes Status: Acute Code(s): A41.9 - SEPSIS, UNSPECIFIED ORGANISM SNOMED Code(s): 78813213 (2) Acute kidney injury Narrative/Plan: * Creatinine up to 2.27 with mild hyperkalemia at 5.6, No previous baseline creatinine * Likely secondary to NSAID use to treat her acute lower back pain * Toradol , nephrotoxic medications such as Cozaar and spironolactone held, metformin also held * Renal ultrasound ordered and nephrology consulted Current Visit: Yes Status: Acute Code(s): N17.9 - ACUTE KIDNEY FAILURE, UNSPECIFIED SNOMED Code(s): 74097401 (3) UTI (urinary tract infection) Narrative/Plan: * Urine cultures pending * Started on Rocephin Current Visit: Yes Status: Acute Code(s): N39.0 - URINARY TRACT INFECTION, SITE NOT SPECIFIED SNOMED Code(s): 38207996 (4) Lumbar degenerative disc disease Narrative/Plan: * Presented with intractable lower back pain with radicular symptoms * Ortho spine Dr. Singh recommending conservative management and anesthesia consult for possible epidural steroid injection Current Visit: Yes Status: Acute Code(s): M51.36 - OTHER INTERVERTEBRAL DISC DEGENERATION, LUMBAR REGION SNOMED Code(s): 53733573 (5) DJD (degenerative joint disease), lumbar Narrative/Plan: * Lumbar x-rays chronic degenerative changes particularly at L1 to L2 3 with severe disc degeneration shows has severe disc degeneration L5-S1 with slight spondylolisthesis. * CT shows significant disc protrusion L3 4 L4 5 and L5-S1 with central and bilateral foraminal stenosis Current Visit: Yes Status: Acute Code(s): M47.816 - SPONDYLOSIS W/O MYELOPATHY OR RADICULOPATHY, LUMBAR REGION SNOMED Code(s): 730383763 (6) Type 2 diabetes mellitus Narrative/Plan: * Blood sugars appear stable * Continue home regimen and correctional scale insulin coverage * Continue Accu-Cheks A1c ordered Current Visit: Yes Status: Acute Code(s): E11.9 - TYPE 2 DIABETES MELLITUS WITHOUT COMPLICATIONS SNOMED Code(s): 55782535 (7) Essential hypertension Narrative/Plan: * Blood pressure stable and controlled today after resuming home hypertensive regimen of metoprolol * Cozaar and spironolactone held secondary to increasing creatinine * We'll continue to monitor Current Visit: Yes Status: Acute Code(s): I10 - ESSENTIAL (PRIMARY) HYPERTENSION SNOMED Code(s): 54573405 (8) Osteopenia Narrative/Plan: * As determined on hip x-ray * Continue with Os-Jesús D Current Visit: Yes Status: Acute Code(s): M85.80 - OTH DISRD OF BONE DENSITY AND STRUCTURE, UNSPECIFIED SITE SNOMED Code(s): 701449616 Plan: * I will change patient to inpatient status * Anticipated discharge 1-2 days
--- NOTE | 2018-10-20 11:45 | P.PAINCN ---
History of Present Illness - Reason for Consult Consult date: 10/20/18 Intractable back pain Requesting physician: Filiberto De - Chief Complaint Intractable back pain - History of Present Illness This is a 77-year-old woman who was admitted to the hospital with intractable back pain and renal insufficiency as well as urinary tract infection. She reports that recently she was laying in bed and had covers over her legs and body. They were heavy and she started kicking them off. She then noticed a couple of hours later onset of intractable back pain and pain down her right leg and thigh to her knee. She denies any bowel or bladder dysfunction from this. She denies any falling. She did also any significant new onset of weakness. Sh e denies any perineal numbness. Review of Systems Positive for dysuria, low back pain and right leg pain Past Medical History Past Medical History: Heart Failure, Diabetes Mellitus, Hyperlipidemia, Hypertension, Osteoarthritis (OA) Additional Past Medical History / Comment(s): IDDM type II, History of Any Multi-Drug Resistant Organisms: None Reported Past Surgical History: Section, Cholecystectomy Additional Past Surgical History / Comment(s): Bilateral cataract removals/lens implants. Past Anesthesia/Blood Transfusion Reactions: No Reported Reaction Additional Past Anesthesia/Blood Transfusion Reaction / Comm: Pt recieved blood in past without reaction (after childbirth) Smoking Status: Never smoker - Past Family History Father Additional Family Medical History / Comment(s): Father from an industrial exposure at the age of 42 yrs. Mother Family Medical History: No Reported History Additional Family Medical History / Comment(s): Mother lived to be 95 yrs old. Medications and Allergies Home Medications Medication Instructions Recorded Confirmed Type ALPRAZolam [Xanax] 0.25 mg PO DAILY PRN 10/18/18 10/18/18 History FLUoxetine HCL [PROzac] 40 mg PO DAILY 10/18/18 10/18/18 History Insulin Lispro Protamin/Lispro 10 unit SQ HS 10/18/18 10/18/18 History [humaLOG Mix 75-25 Kwikpen] Insulin Lispro Protamin/Lispro 20 unit SQ QAM 10/18/18 10/18/18 History [humaLOG Mix 75-25 Kwikpen] Lidocaine [Lidoderm 5% Patch] 1 patch TRANSDERM DAILY #7 patch 10/18/18 Rx Losartan [Cozaar] 50 mg PO DAILY 10/18/18 10/18/18 History Metoprolol Tartrate [Lopressor] 50 mg PO BID 10/18/18 10/18/18 History NIFEdipine [NIFEdipine ER] 90 mg PO DAILY 10/18/18 10/18/18 History Oxybutynin Chloride [Ditropan] 5 mg PO BID 10/18/18 10/18/18 History Spironolactone [Aldactone] 25 mg PO DAILY 10/18/18 10/18/18 History metFORMIN HCL 1,000 mg PO BID 10/18/18 10/18/18 History Allergies Allergy/AdvReac Type Severity Reaction Status Date / Time codeine Allergy Nausea & Verified 10/18/18 17:15 Vomiting Physical Exam Vitals: Vital Signs Temp Pulse Pulse Resp BP Pulse Ox 10/20/18 06:46 97.8 F 60 15 139/72 94 L 10/19/18 23:30 98.2 F 67 16 146/71 92 L 10/19/18 15:14 18 10/19/18 14:06 98.4 F 80 18 119/61 96 Intake and Output 10/19/18 10/20/18 10/20/18 22:59 06:59 14:59 Intake Total 1040 400 Balance 1040 400 Intake: Intake, IV Titration 800 400 Amount Sodium Chloride 0.9% 1, 800 000 ml @ 100 mls/hr IV . Q10H [facility] Rx#:[id number] cefTRIAXone 1 gm In 400 Sodium Chloride 0.9% 50 ml @ 100 mls/hr IVPB Q24HR [facility] Rx#:[id number] Oral 240 Other: # Voids 2 2 1 # Bowel Movements 0 Weight 80.7 kg General: The patient is alert and oriented. She is evaluated while laying in her hospital bed. Patient is not sedated Patient answers all question appropriately. Cardiac: Heart is regular in rate and rhythm Respiratory: Clear to auscultation. No audible wheezes. Abdomen: Soft nontender nondistended. Musculoskeletal: Strength is normal bilaterally. Sensation is normal bilaterally. Straight leg raise is negative bilaterally. She does demonstrate a minimal amount of weakness with leg extension on the right side as compared to the left. Neurological: Reflexes are preserved and symmetric bilaterally. No numbness in her lower extremities to light touch Results CBC & Chem 7: 10/20/18 07:25 10/20/18 07:25 Labs: Abnormal Lab Results - Last 24 Hours (Table) 10/18/18 10/19/18 10/19/18 Range/Units 08:25 11:47 20:43 RBC (3.80-5.40) m/uL Hgb (11.4-16.0) gm/dL Hct (34.0-46.0) % MCHC (31.0-37.0) g/dL Potassium (3.5-5.1) mmol/L BUN (7-17) mg/dL Creatinine (0.52-1.04) mg/dL POC Glucose (mg/dL) 145 H 128 H (75-99) mg/dL Vitamin D 25-Hydroxy 22.2 L (30.0-100.0) ng/mL 10/20/18 10/20/18 Range/Units 07:25 07:25 RBC 3.58 L (3.80-5.40) m/uL Hgb 10.0 L (11.4-16.0) gm/dL Hct 33.4 L (34.0-46.0) % MCHC 30.1 L (31.0-37.0) g/dL Potassium 5.6 H (3.5-5.1) mmol/L BUN 41 H (7-17) mg/dL Creatinine 2.25 H (0.52-1.04) mg/dL POC Glucose (mg/dL) (75-99) mg/dL Vitamin D 25-Hydroxy (30.0-100.0) ng/mL Comments: Computed tomography scan of her lumbar spine reveals a disc protrusion at L3 4 and L4 5 Assessment and Plan (1) Acute lumbar radiculopathy Narrative/Plan: Plan of Care 1. Medications: Patient believes that the Lyrica and [place] she is currently taking for back pain are helpful for her. She denies any significant side ef fects from them. I would recommend continuing them in the short-term. She would also be a candidate for an oral steroid pack if this is not contraindicated with her current urinary tract infection diagnosis. 2. Interventions: I believe the patient would benefit from a lumbar epidural steroid injection. This was discussed with her. Unfortunately, she does have an active urinary tract infection. Once this is resolved she could be scheduled for a lumbar epidural steroid injection as an outpatient. 3. Referrals: Patient should continue to work with physical therapy. 4. Testing: None 5. Follow-up: Lumbar epidural steroid injection will be scheduled as an outpatient. Current Visit: Yes Status: Acute Code(s): M54.16 - RADICULOPATHY, LUMBAR REGION SNOMED Code(s): 856418031 (2) Facet arthritis, degenerative, L5-S1 level, lumbosacral spine Current Visit: Yes Status: Acute Code(s): M47.817 - SPONDYLS W/O MYELOPATHY OR RADICULOPATHY, LUMBOSACR REGION SNOMED Code(s): 602378996 (3) Facet arthropathy, lumbosacral Current Visit: Yes Status: Acute Code(s): M47.817 - SPONDYLS W/O MYELOPATHY OR RADICULOPATHY, LUMBOSACR REGION SNOMED Code(s): 72171855 PQRS Measure Charge Sheet PQRS Narrative: Smoking Status Never smoker Do You Want the Pneumonia Vaccine Up to Date Vaccine AT THIS TIME? Blood Pressure [Left Arm] 139/72 Blood Pressure 130/51 Pain Intensity [Lower Back] 0 Pain Intensity [None] 0 Pain Intensity 0 Pain Scale Used Numeric (1 - 10) Scale Used Numeric (1 - 10) Home Medications: Ambulatory Orders ALPRAZolam [Xanax] 0.25 mg PO DAILY PRN 10/18/18 FLUoxetine HCL [PROzac] 40 mg PO DAILY 10/18/18 Insulin Lispro Protamin/Lispro [humaLOG Mix 75-25 Kwikpen] 10 unit SQ HS 10/18/18 Insulin Lispro Protamin/Lispro [humaLOG Mix 75-25 Kwikpen] 20 unit SQ QAM 10/18/18 Lidocaine [Lidoderm 5% Patch] 1 patch TRANSDERM DAILY #7 patch 10/18/18 Losartan [Cozaar] 50 mg PO DAILY 10/18/18 Metoprolol Tartrate [Lopressor] 50 mg PO BID 10/18/18 NIFEdipine [NIFEdipine ER] 90 mg PO DAILY 10/18/18 Oxybutynin Chloride [Ditropan] 5 mg PO BID 10/18/18 Spironolactone [Aldactone] 25 mg PO DAILY 10/18/18 metFORMIN HCL 1,000 mg PO BID 10/18/18
--- NOTE | 2018-10-20 12:21 | P.NPCON ---
History of Present Illness - Reason for Consult acute renal failure - History of Present Illness Reason for consultation: Acute kidney injury History of present illness: Patient is a 77-year-old female seen in renal consultation for acute kidney injury. Unclear as to what her baseline renal function is. No records are available in the EMR. On admission her creatinine was 1.94 and is up to 2.25 today. She presented to the hospital with right-sided hip pain. She does admit to taking ibuprofen 600 mg up to 4 times a day for the last few days. No vomiting or diarrhea. Oral intake is fair. No hematuria or dysuria. Hemodynamically she's been quite stable without any significant hypotension. Keerthi mars does have history of diabetes mellitus and was maintained on metformin as an outpatient which is currently held. Additionally Cozaar and Aldactone are also held at this time. No edema. No hydronephrosis noted on renal ultrasound although the right kidney is quite small in size. Vital signs are stable. General: The patient appeared well nourished and normally developed. HEENT: Head exam is unremarkable. Neck is without jugular venous distension. LUNGS: Lungs are clear to auscultation and percussion. Breath sounds decreased. HEART: Rate and Rhythm are regular. First and second heart sounds normal. No murmurs, rubs or gallops. ABDOMEN: Abdominal exam reveals normal bowel sounds. Non-tender and non- distended. No evidence of peritonitis. EXTREMITITES: No clubbing, cyanosis, or edema. Past Medical History Past Medical History: Heart Failure, Diabetes Mellitus, Hyperlipidemia, Hypertension, Osteoarthritis (OA) Additional Past Medical History / Comment(s): IDDM type II, History of Any Multi-Drug Resistant Organisms: None Reported Past Surgical History: Section, Cholecystectomy Additional Past Surgical History / Comment(s): Bilateral cataract removals/lens implants. Past Anesthesia/Blood Transfusion Reactions: No Reported Reaction Additional Past Anesthesia/Blood Transfusion Reaction / Comment(s): Pt recieved blood in past without reaction (after childbirth) Smoking Status: Never smoker - Past Family History Father Additional Family Medical History / Comment(s): Father from an industrial exposure at the age of 42 yrs. Mother Family Medical History: No Reported History Additional Family Medical History / Comment(s): Mother lived to be 95 yrs old. Medications and Allergies Home Medications Medication Instructions Recorded Confirmed Type ALPRAZolam [Xanax] 0.25 mg PO DAILY PRN 10/18/18 10/18/18 History FLUoxetine HCL [PROzac] 40 mg PO DAILY 10/18/18 10/18/18 History Insulin Lispro Protamin/Lispro 10 unit SQ HS 10/18/18 10/18/18 History [humaLOG Mix 75-25 Kwikpen] Insulin Lispro Protamin/Lispro 20 unit SQ QAM 10/18/18 10/18/18 History [humaLOG Mix 75-25 Kwikpen] Lidocaine [Lidoderm 5% Patch] 1 patch TRANSDERM DAILY #7 patch 10/18/18 Rx Losartan [Cozaar] 50 mg PO DAILY 10/18/18 10/18/18 History Metoprolol Tartrate [Lopressor] 50 mg PO BID 10/18/18 10/18/18 History NIFEdipine [NIFEdipine ER] 90 mg PO DAILY 10/18/18 10/18/18 History Oxybutynin Chloride [Ditropan] 5 mg PO BID 10/18/18 10/18/18 History Spironolactone [Aldactone] 25 mg PO DAILY 10/18/18 10/18/18 History metFORMIN HCL 1,000 mg PO BID 10/18/18 10/18/18 History Allergies Allergy/AdvReac Type Severity Reaction Status Date / Time codeine Allergy Nausea & Verified 10/18/18 17:15 Vomiting Physical Exam Vitals: Vital Signs Temp Pulse Pulse Resp BP Pulse Ox 10/20/18 06:46 97.8 F 60 15 139/72 94 L 10/19/18 23:30 98.2 F 67 16 146/71 92 L 10/19/18 15:14 18 10/19/18 14:06 98.4 F 80 18 119/61 96 Intake and Output 10/19/18 10/20/18 10/20/18 22:59 06:59 14:59 Intake Total 1040 400 Balance 1040 400 Intake: Intake, IV Titration 800 400 Amount Sodium Chloride 0.9% 1, 800 000 ml @ 100 mls/hr IV . Q10H [facility] Rx#:[id number] cefTRIAXone 1 gm In 400 Sodium Chloride 0.9% 50 ml @ 100 mls/hr IVPB Q24HR [facility] Rx#:[id number] Oral 240 Other: # Voids 2 2 1 # Bowel Movements 0 Weight 80.7 kg Results - Lab Results Most recent lab results Calcium 9.4 mg/dL (8.4-10.2) 10/20/18 07:25 10/20/18 07:25 10/20/18 07:25 Assessment and Plan Plan: assessment: 1. Acute kidney injury secondary to ATN secondary to nonsteroidals as well as use of ARB and Aldactone. Creatinine 2.25 today. Unknown baseline creatinine. No hydronephrosis noted on renal ultrasound. 2. Atrophic right kidney. 3. Mild hyperkalemia secondary to acute kidney injury and from the use of Cozaar and Aldactone. 4. Diabetes mellitus. 5. UTI maintained on antibiotics. 6. Acute right lower extremity radiculopathy. Orthopedic surgery following. 7. Rule out chronic kidney disease. Plan: Start normal saline at 50 mL an hour. Follow-up urine culture. Hold Aldactone Cozaar and metformin for now. Repeat potassium level this evening. Low potassium diet. Thank you for the consultation. I will continue to follow the patient with you during her hospital stay.
[2018-10-20 12:22] LABS: Glucose,Whole Blood 124 mg/dL (75-99)
[2018-10-20] MEDS: ALPRAZolam 0.25 MG TAB PO PRN (12:51)
[2018-10-20] MEDS: SODIUM CHLORIDE 0.9% 1,000 ML IV SCH (13:22)
[2018-10-20 16:57] LABS: Glucose,Whole Blood 144 mg/dL (75-99)
[2018-10-20 20:47] LABS: Glucose,Whole Blood 143 mg/dL (75-99)
[2018-10-21 07:26] LABS: Basophils % (A) 0 %; Eosinophils # (A) 0.7 k/uL (0-0.7); Eosinophils % (A) 5 %; HCT 35.9 % (34.0-46.0); HGB 11.1 gm/dL (11.4-16.0); Hypochromasia Slight; Lymphocytes # (A) 2.4 k/uL (1.0-4.8); Lymphocytes % (A) 18 %; MCH 28.6 pg (25.0-35.0); MCV 92.2 fL (80.0-100.0); Mean Platelet Volume 6.4; Monocytes # (A) 0.9 k/uL (0-1.0); Monocytes % (A) 6 %; Neutrophils # (A) 9.4 k/uL (1.3-7.7); Neutrophils % (A) 69 %; Platelet Count 332 k/uL (150-450); RDW 13.5 % (11.5-15.5); WBC 13.6 k/uL (3.8-10.6)
[2018-10-21 07:27] LABS: Glucose,Whole Blood 99 mg/dL (75-99)
[2018-10-21] MEDS: INSULIN ASPART (NovoLOG) 100 UNIT/ML VIAL SQ SCH ×5 (07:43→20:59)
[2018-10-21] MEDS: FLUoxetine HCL 20 MG CAP PO SCH (08:33)
[2018-10-21] MEDS: CALCIUM CARB-VIT D 500MG-200UN 1 EACH TAB PO SCH ×3 (08:33→17:05)
[2018-10-21] MEDS: SODIUM CHLORIDE 0.9% 1,000 ML IV SCH (08:33)
[2018-10-21] MEDS: METOPROLOL TARTRATE 50 MG TAB PO SCH ×2 (08:34→20:59)
[2018-10-21] MEDS: PREGABALIN 75 MG CAP PO SCH ×2 (08:34→20:59)
[2018-10-21] MEDS: NIFEdipine XL 90 MG TAB.ER.24 PO SCH (08:34)
[2018-10-21] MEDS: INSULN ASP PRT/INSULIN ASPART 100 UNIT/ML 10 ML VIAL SQ SCH (08:40)
[2018-10-21] MEDS: HYDROcodone/APAP 5-325MG 1 EACH TAB PO PRN (08:40)
--- NOTE | 2018-10-21 10:40 | P.PN ---
Subjective Progress Note Date: 10/21/18 Patient seen and examined at bedside, sitting up in bed . Reporting of the pain is much worse today, has not been able to work as well physical therapy today. Patient was apparently seen by anesthesia who who were unable to perform epidural injection secondary to UTI, patient afebrile overnight. Objective - Vital Signs Vital signs: Vital Signs Temp 97.6 F 10/21/18 05:58 Pulse 55 L 10/21/18 05:58 Resp 16 10/21/18 05:58 BP 124/61 10/21/18 05:58 Pulse Ox 92 L 10/21/18 05:58 Intake & Output 10/20/18 10/21/18 10/21/18 18:59 06:59 18:59 Intake Total 600 200 Balance 600 200 Weight 82 kg Intake: Intake, IV Titration 200 Amount Sodium Chloride 0.9% 1, 200 000 ml @ 50 mls/hr IV . Q20H [facility] Rx#:[id number] Oral 600 Other: Voiding Method Bedpan Bedpan # Voids 1 2 # Bowel Movements 2 - Exam Constitutional: No acute distress, conversant, pleasant Eyes: Anicteric sclerae, moist conjunctiva, no lid-lag, PERRLA ENMT: NC/AT,Oropharynx clear, no erythema, exudates Neck:Supple, FROM, no masses, or JVD, No carotid bruits; No thyromegaly Lungs: Clear to auscultation, Clear to percussion, Normal respiratory effort, no accessory muscle use Cardiovascular: Heart regular in rate and rhythm, No murmurs, gallops, or rubs no peripheral edema Abdominal: Soft Nontender, nom distended, no guarding, no rebound or rigidity, Normoactive bowel sounds No hepatomegaly, No splenomegaly, No palpable mass No abdominal wall hernia noted Skin: Normal temperature, tone, texture, turgor, No induration No subcutaneous nodules, No rash, lesions, No ulcers Extremities: Good range of motion of the right leg and hip no pain with internal/external rotation of hip Psychiatric: Alert and oriented to person, place and time, Appropriate affect Intact judgement Neuro: Muscles Strength 5/5 in all 4 extremities, Sensation to light touch grossly present throughout, Cranial nerves II-XII grossly intact. No focal sensory deficits - Labs CBC & Chem 7: 10/21/18 06:36 10/20/18 17:36 Labs: Abnormal Lab Results - Last 24 Hours (Table) 10/20/18 10/20/18 10/20/18 Range/Units 07:25 12:07 16:50 WBC (3.8-10.6) k/uL Hgb (11.4-16.0) gm/dL Neutrophils # (1.3-7.7) k/uL Potassium (3.5-5.1) mmol/L POC Glucose (mg/dL) 124 H 144 H (75-99) mg/dL Hemoglobin A1c 7.0 H (4.0-6.0) % 10/20/18 10/20/18 10/21/18 Range/Units 17:36 20:39 06:36 WBC 13.6 H (3.8-10.6) k/uL Hgb 11.1 L (11.4-16.0) gm/dL Neutrophils # 9.4 H (1.3-7.7) k/uL Potassium 5.4 H (3.5-5.1) mmol/L POC Glucose (mg/dL) 143 H (75-99) mg/dL Hemoglobin A1c (4.0-6.0) % Microbiology - Last 24 Hours (Table) 10/19/18 11:42 Blood Culture - Preliminary Blood No Growth after 24 hours 10/19/18 08:25 Urine Culture - Preliminary Urine,Clean Catch Assessment and Plan (1) Sepsis Narrative/Plan: * Patient afebrile leukocytosis improving * Urinalysis suggestive of UTI urine cultures ordered, and blood cultures ordered * Hemodynamically stable * Continue with Rocephin Current Visit: Yes Status: Resolved Code(s): A41.9 - SEPSIS, UNSPECIFIED ORGANISM SNOMED Code(s): 57304462 (2) Acute kidney injury Narrative/Plan: * Creatinine up to 2.27 with mild hyperkalemia at 5.6, No previous baseline creatinine * Likely secondary to NSAID use to treat her acute lower back pain * Toradol , nephrotoxic medications such as Cozaar and spironolactone held, m etformin also held * Renal ultrasound ordered and nephrology consulted Current Visit: Yes Status: Acute Code(s): N17.9 - ACUTE KIDNEY FAILURE, UNSPECIFIED SNOMED Code(s): 37822605 (3) UTI (urinary tract infection) Narrative/Plan: * Urine cultures pending * Continue on Rocephin Current Visit: Yes Status: Acute Code(s): N39.0 - URINARY TRACT INFECTION, SITE NOT SPECIFIED SNOMED Code(s): 27815311 (4) Lumbar degenerative disc disease Narrative/Plan: * Presented with intractable lower back pain with radicular symptoms * Ortho spine Dr. Singh recommending conservative management and anesthesia consult for possible epidural steroid injection * Discussed the case with anesthesia the patient's will complete her treatment for antibiotics for UTI today and urged him to reevaluate her skin that she can get her epidural injection today Current Visit: Yes Status: Acute Code(s): M51.36 - OTHER INTERVERTEBRAL DISC DEGENERATION, LUMBAR REGION SNOMED Code(s): 35814309 (5) DJD (degenerative joint disease), lumbar Narrative/Plan: * Lumbar x-rays chronic degenerative changes particularly at L1 to L2 3 with severe disc degeneration shows has severe disc degeneration L5-S1 with slight spondylolisthesis. * CT shows significant disc protrusion L3 4 L4 5 and L5-S1 with central and bilateral foraminal stenosis Current Visit: Yes Status: Acute Code(s): M47.816 - SPONDYLOSIS W/O MYELOPATHY OR RADICULOPATHY, LUMBAR REGION SNOMED Code(s): 812255388 (6) Type 2 diabetes mellitus Narrative/Plan: * Blood sugars appear stable * Continue home regimen and correctional scale insulin coverage * Continue Accu-Cheks A1c ordered Current Visit: Yes Status: Acute Code(s): E11.9 - TYPE 2 DIABETES MELLITUS WITHOUT COMPLICATIONS SNOMED Code(s): 63639544 (7) Essential hypertension Narrative/Plan: * Blood pressure stable and controlled today after resuming home hypertensive regimen of metoprolol * Cozaar and spironolactone held secondary to increasing creatinine * We'll continue to monitor Current Visit: Yes Status: Acute Code(s): I10 - ESSENTIAL (PRIMARY) HYPERTENSION SNOMED Code(s): 64767554 (8) Osteopenia Narrative/Plan: * As determined on hip x-ray * Continue with Os-Jesús D Current Visit: Yes Status: Acute Code(s): M85.80 - OTH DISRD OF BONE DENSITY AND STRUCTURE, UNSPECIFIED SITE SNOMED Code(s): 954177481 Plan: * I will change patient to inpatient status * Anticipated discharge 1-2 days
[2018-10-21 10:50] LABS: Calcium 9.9 mg/dL (8.4-10.2); Potassium 5.4 mmol/L (3.5-5.1)
[2018-10-21 11:46] LABS: Glucose,Whole Blood 110 mg/dL (75-99)
[2018-10-21 17:24] LABS: Glucose,Whole Blood 107 mg/dL (75-99)
[2018-10-21] MEDS ORDERED: methylPREDNISolone ACETATE 40 MG/ML 1 ML VIAL ONE (18:15)
[2018-10-21] MEDS: MIDAZOLAM 2 MG/2 ML VIAL IVP ONE ×2 (18:26→18:31)
[2018-10-21] MEDS ORDERED: methylPREDNISolone ACETATE 80 MG/ML 1 ML VIAL INJ ONE (18:40)
--- NOTE | 2018-10-21 18:45 | P.PCN ---
Date of Procedure: 10/21/18 Procedure(s) Performed: PREOPERATIVE DIAGNOSIS: 1- Lumbar Degenerative Disc Diseases 2-Lumbar spondylosis with Facet arthropathy without myelopathy 3-lumbar radiculopathy POSTOPERATIVE DIAGNOSIS: Same as preop diagnosis PROCEDURE 1. Lumbar epidural steroid injection under fluoroscopic guidance at the L5-S1 lev ANESTHESIA: Local with 1% lidocaine 3 ml and , moderate sedation with intravenous Versed 2 mg . EBL: Minimal PROCEDURE INDICATION: The patient with low back pain and radiculitis symptoms unresponsive to conservative treatment. PROCEDURE DESCRIPTION / TECHNIQUE: The patient was seen and identified in the preoperative area. Risks, benefits, complications including but not limited to infections ,bleeding ,allergic reaction to the medications ,nerve damage and not complete pain releife , and alternatives were discussed with the patient. The patient agreed to proceed with the procedure and signed the consent. IV was started, and vital signs were stable. . The patient was placed in the sitting position on procedure table The lumbosacral area was prepped and draped in the usual sterile fashion.ere closely monitored during the procedure. Conscious sedation was used during the procedure to decrease patients anxiety. Vital signs was monitered during the entire procedure. the L5-S1 interlaminar space was identified and the skin over this site was marked and then infiltrated with 1% lidocaine subcutaneously. Subsequently, a 20-gauge Tuohy epidural needle was inserted and advanced toward the epidural space using the ``Loss of resistance technique , after negative aspiration for blood and CSF and in the absence of paresthesias. Again after negative aspiration, a 6 ml mixture containing 40 mg of Depo-medrol , and 2 ml of preservative free Normal Saline, and 2 ml of preservative free lidocaine 1% solution was injected . Needle was withdrawn intact, skin was cleansed, and bandages were applied. COMPLICATIONS: None DISPOSITION / PLANS: The patient was placed in a supine position and transferred to the recovery area in a stable condition for observation.. The patient will schedule a follow up in the clinic in 2-4 weeks.
[2018-10-21 20:49] LABS: Glucose,Whole Blood 155 mg/dL (75-99)
--- NOTE | 2018-10-21 22:43 | PN ---
PROGRESS NOTE The patient is seen for followup for acute kidney injury secondary to NSAIDs. Patient also has an atrophic right kidney. Currently, she is an maintained on IV fluids and angiotensin receptor blockers are on hold. She has had good urine output and we do not have a prior creatinine available for baseline renal function. PHYSICAL EXAMINATION: This morning, blood pressure is 124/61, heart rate of 51 per minute. Patient is afebrile. Examination of the heart S1, S2. Examination of the lungs bilateral breath sounds are heard. Abdomen is soft, nontender. Examination of the lower extremities shows no significant edema. [employer] exam is grossly intact. LABS SHOW: Hemoglobin 11.1, sodium 137, potassium 5.4, chloride 104, BUN 47, serum creatinine 2.29. ASSESSMENT: 1. Acute kidney injury secondary to NSAIDs, which are currently on hold. Serum creatinine staying at about 2.2 mg/dL. No nephrotoxic agents on board. Patient has good urine output. She does have an atrophic right kidney. Continue with the IV fluids for now. 2. Possible chronic kidney disease. Baseline renal function not known. The etiology likely diabetic nephropathy and nephrosclerosis. 3. Urinary tract infection. Urine culture is growing gram-negative bacilli. 4. Mild hyperkalemia associated with acute kidney injury. PLAN: Continue IV fluids. Continue antibiotics. Maintain patient on low-potassium diet and off of angiotensin receptor blockers and repeat labs in a.m. MMLLOYDL / MARTINEN: [id number] /
[2018-10-22] MEDS: SODIUM CHLORIDE 0.9% 1,000 ML IV SCH ×2 (05:56→23:26)
[2018-10-22 07:38] LABS: Glucose,Whole Blood 123 mg/dL (75-99)
[2018-10-22] MEDS: INSULIN ASPART (NovoLOG) 100 UNIT/ML VIAL SQ SCH ×5 (07:53→20:14)
[2018-10-22] MEDS: FLUoxetine HCL 20 MG CAP PO SCH (07:59)
[2018-10-22] MEDS: PREGABALIN 75 MG CAP PO SCH ×2 (07:59→20:11)
[2018-10-22] MEDS: CALCIUM CARB-VIT D 500MG-200UN 1 EACH TAB PO SCH ×3 (07:59→17:54)
[2018-10-22] MEDS: NIFEdipine XL 90 MG TAB.ER.24 PO SCH (08:00)
[2018-10-22] MEDS: METOPROLOL TARTRATE 50 MG TAB PO SCH ×2 (08:00→20:17)
[2018-10-22] MEDS: INSULN ASP PRT/INSULIN ASPART 100 UNIT/ML 10 ML VIAL SQ SCH (08:02)
[2018-10-22] MEDS: HYDROcodone/APAP 5-325MG 1 EACH TAB PO PRN ×3 (08:10→20:11)
--- NOTE | 2018-10-22 09:03 | P.PN ---
Subjective Patient seen in follow-up for acute kidney injury. Unclear as to whether presented to function is. Creatinine was 2.29 as of yesterday. Oral intake is fair. No vomiting or diarrhea. Good urine output. Vital signs are stable. General: The patient appeared well nourished and normally developed. HEENT: Head exam is unremarkable. Neck is without jugular venous distension. LUNGS: Lungs are clear to auscultation and percussion. Breath sounds decreased. HEART: Rate and Rhythm are regular. First and second heart sounds normal. No murmurs, rubs or gallops. ABDOMEN: Abdominal exam reveals normal bowel sounds. Non-tender and non- distended. No evidence of peritonitis. EXTREMITITES: No clubbing, cyanosis, or edema. Objective - Vital Signs Vital signs: Vital Signs Temp 97 F L 10/22/18 05:04 Pulse 57 L 10/22/18 05:04 Resp 20 10/22/18 05:04 BP 129/60 10/22/18 05:04 Pulse Ox 97 10/22/18 05:04 Intake & Output 10/21/18 10/22/18 10/22/18 18:59 06:59 18:59 Intake Total 1050 150 Balance 1050 150 Weight 84.5 kg Intake: Intake, IV Titration 450 150 Amount Sodium Chloride 0.9% 1, 400 150 000 ml @ 50 mls/hr IV . Q20H [facility] Rx#:[id number] cefTRIAXone 1 gm In 50 Sodium Chloride 0.9% 50 ml @ 100 mls/hr IVPB Q24HR [facility] Rx#:[id number] Oral 600 Other: Voiding Method Bedpan Bedpan # Voids 3 3 # Bowel Movements 1 - Labs CBC & Chem 7: 10/21/18 06:36 10/21/18 06:36 Labs: Abnormal Lab Results - Last 24 Hours (Table) 10/21/18 10/21/18 10/21/18 Range/Units 06:36 11:45 17:22 Potassium 5.4 H (3.5-5.1) mmol/L BUN 47 H (7-17) mg/dL Creatinine 2.29 H (0.52-1.04) mg/dL POC Glucose (mg/dL) 110 H 107 H (75-99) mg/dL 10/21/18 10/22/18 Range/Units 20:48 07:37 Potassium (3.5-5.1) mmol/L BUN (7-17) mg/dL Creatinine (0.52-1.04) mg/dL POC Glucose (mg/dL) 155 H 123 H (75-99) mg/dL Microbiology - Last 24 Hours (Table) 10/19/18 11:42 Blood Culture - Preliminary Blood No Growth after 48 hours 10/19/18 08:25 Urine Culture - Preliminary Urine,Clean Catch Gram Neg Bacilli Assessment and Plan Plan: assessment: 1. Acute kidney injury secondary to ATN secondary to nonsteroidals as well as use of ARB and Aldactone. Creatinine 2.29 as of yesterday. Unknown baseline creatinine. No hydronephrosis noted on renal ultrasound. 2. Atrophic right kidney. 3. Mild hyperkalemia secondary to acute kidney injury and from the use of Cozaar and Aldactone. 4. Diabetes mellitus. 5. UTI maintained on antibiotics. Urine culture positive for gram-negative bacilli. 6. Acute right lower extremity radiculopathy. Orthopedic surgery following. 7. Rule out chronic kidney disease. 8. Benign hypertension. Controlled. Plan: Maintain normal saline at 50 mL an hour. Follow-up urine culture. Hold Aldactone, Cozaar and metformin for now. Low potassium diet. Follow-up morning labs.
[2018-10-22 09:16] LABS: Basophils % (A) 0 %; Eosinophils # (A) 0.1 k/uL (0-0.7); Eosinophils % (A) 1 %; HCT 34.3 % (34.0-46.0); HGB 10.8 gm/dL (11.4-16.0); Hypochromasia Moderate; Lymphocytes # (A) 1.7 k/uL (1.0-4.8); Lymphocytes % (A) 13 %; MCH 29.1 pg (25.0-35.0); MCHC 31.4 g/dL (31.0-37.0); MCV 92.7 fL (80.0-100.0); Mean Platelet Volume 6.8; Monocytes # (A) 0.4 k/uL (0-1.0); Monocytes % (A) 3 %; Neutrophils # (A) 10.5 k/uL (1.3-7.7); Neutrophils % (A) 82 %; Platelet Count 298 k/uL (150-450); RDW 13.8 % (11.5-15.5); WBC 12.8 k/uL (3.8-10.6)
[2018-10-22 09:28] LABS: Calcium 9.7 mg/dL (8.4-10.2)
[2018-10-22 09:40] LABS: Potassium 6.1 mmol/L (3.5-5.1)
[2018-10-22] MEDS ORDERED: SODIUM POLYSTYRENE SULFONATE 15 GM/60 ML BOTTLE PO STA (09:44)
[2018-10-22] MEDS ORDERED: INSULIN REGULAR 100 UNIT/ML VIAL IV ONE ×2 (10:27→21:11)
[2018-10-22] MEDS ORDERED: DEXTROSE 50%-WATER 50 ML SYRINGE IVP STA ×2 (10:28→21:11)
--- NOTE | 2018-10-22 10:38 | P.PN ---
Subjective Progress Note Date: 10/22/18 Principal diagnosis: Radiculopathy, hyperkalemia Patient seen and examined. No acute events overnight. Received epidural yesterday, improvement in pain from 10 out of 10-8 out of 10 this morning. Patient continues to complain right-sided back pain radiating down to the right lower foot. As per nursing, patient is nonambulatory at this time. She denies any nausea or vomiting. No fever or chills. She denies any chest pain, shortness of breath or palpitations. She denies any dysuria or abdominal pain. Objective - Vital Signs Vital signs: Vital Signs Temp 97 F L 10/22/18 05:04 Pulse 57 L 10/22/18 05:04 Resp 20 10/22/18 05:04 BP 129/60 10/22/18 05:04 Pulse Ox 97 10/22/18 05:04 Intake & Output 10/21/18 10/22/18 10/22/18 18:59 06:59 18:59 Intake Total 1050 150 Balance 1050 150 Weight 84.5 kg Intake: Intake, IV Titration 450 150 Amount Sodium Chloride 0.9% 1, 400 150 000 ml @ 50 mls/hr IV . Q20H [facility] Rx#:[id number] cefTRIAXone 1 gm In 50 Sodium Chloride 0.9% 50 ml @ 100 mls/hr IVPB Q24HR [facility] Rx#:[id number] Oral 600 Other: Voiding Method Bedpan Bedpan Bedpan Diaper Incontinent # Voids 3 3 # Bowel Movements 1 - Exam General: [non toxic], [no distress], [appears at stated age] Derm: [warm], [dry] Head: [atraumatic], [normocephalic], [symmetric] Eyes: [EOMI], [no lid lag], [anicteric sclera] Mouth: [no lip lesion], [mucus membranes moist] Cardiovascular: [S1S2 reg], [no murmur], [positive posterior tibial pulse bilateral], Lungs: [CTA bilateral], [no rhonchi, no rales] , [no accessory muscle use] Abdominal: [soft], [ nontender to palpation], [no guarding], [no appreciable organomegaly] Ext: [no gross muscle atrophy], [no edema], [no contractures] Neuro: [Right lower extremity weakness, 4 out of 5 due to pain. Strength 5 out of 5 otherwise, sensation intact to touch.] Psych: [Alert], [oriented], [appropriate affect] - Labs CBC & Chem 7: 10/22/18 08:40 10/22/18 08:40 Labs: Abnormal Lab Results - Last 24 Hours (Table) 10/21/18 10/21/18 10/21/18 Range/Units 06:36 11:45 17:22 WBC (3.8-10.6) k/uL RBC (3.80-5.40) m/uL Hgb (11.4-16.0) gm/dL Neutrophils # (1.3-7.7) k/uL Potassium 5.4 H (3.5-5.1) mmol/L Chloride (98-107) mmol/L Carbon Dioxide (22-30) mmol/L BUN 47 H (7-17) mg/dL Creatinine 2.29 H (0.52-1.04) mg/dL Glucose (74-99) mg/dL POC Glucose (mg/dL) 110 H 107 H (75-99) mg/dL 10/21/18 10/22/18 10/22/18 Range/Units 20:48 07:37 08:40 WBC 12.8 H (3.8-10.6) k/uL RBC 3.70 L (3.80-5.40) m/uL Hgb 10.8 L (11.4-16.0) gm/dL Neutrophils # 10.5 H (1.3-7.7) k/uL Potassium (3.5-5.1) mmol/L Chloride (98-107) mmol/L Carbon Dioxide (22-30) mmol/L BUN (7-17) mg/dL Creatinine (0.52-1.04) mg/dL Glucose (74-99) mg/dL POC Glucose (mg/dL) 155 H 123 H (75-99) mg/dL 10/22/18 Range/Units 08:40 WBC (3.8-10.6) k/uL RBC (3.80-5.40) m/uL Hgb (11.4-16.0) gm/dL Neutrophils # (1.3-7.7) k/uL Potassium 6.1 H* (3.5-5.1) mmol/L Chloride 108 H (98-107) mmol/L Carbon Dioxide 21 L (22-30) mmol/L BUN 48 H (7-17) mg/dL Creatinine 1.99 H (0.52-1.04) mg/dL Glucose 175 H (74-99) mg/dL POC Glucose (mg/dL) (75-99) mg/dL Microbiology - Last 24 Hours (Table) 10/19/18 08:25 Urine Culture - Final Urine,Clean Catch Klebsiella pneumoniae Escherichia coli 10/19/18 11:42 Blood Culture - Preliminary Blood No Growth after 48 hours Assessment and Plan Assessment: Assessment and Plan 1. Hyperkalemia 2. Chronic lower back 3. UTI 4. PETE on possible CKD 5. Diabetes mellitus 6. Hypertension 7. Osteopenia 1. Potassium 6.1, nonhemolyzed likely from CKD, patient asymptomatic. Stat EKG ordered. 30 g Kayexalate. 10 units regular IV insulin with D50. Telemetry monitoring. Follow BMP around 2 PM. 2. Status post epidural 10/21/2017. Pain management with [place] 5-10 by mouth every 6 hours as needed, Lyrica 75 mg by mouth twice a day. Plans for TYLER. Follow PT and OT recommendations. Fall precautions. 3. UA shows large leukocyte esterase and positive for nitrite. Urine culture grows Klebsiella pneumonia, E. coli sensitive to Rocephin. Continue Rocephin IV 1g daily. 4. Creatinine ranged from 1.942 2.29. Unknown baseline. Renal diet. Avoid nephrotoxins. Monitor and replace electrolytes. Continue normal saline at 50 mL per hour. Follow nephrology recommendations. 5. Yfnyj-[id number] glucose 175. Insulin sliding scale. Continue insulin 20 units every morning. Regular Accu-Cheks. Hypoglycemic precautions. 6. BP 129/60. Continue metoprolol 50 mg by mouth twice a day. Monitor vitals, adjust medications as necessary. 7. Continue calcium carbonate with vitamin D supplementation. Patient admitted for chronic lower back pain, seen by PT and OT, pending rehab plans. Hyperkalemia this morning, will follow BMP in the afternoon. Treatment for UTI. Will follow nephrology recommendations for elevated creatinine.
[2018-10-22 11:57] LABS: Glucose,Whole Blood 196 mg/dL (75-99)
[2018-10-22 13:50] LABS: Glucose,Whole Blood 105 mg/dL (75-99)
[2018-10-22 16:51] LABS: Calcium 8.9 mg/dL (8.4-10.2); Potassium 5.5 mmol/L (3.5-5.1)
[2018-10-22 17:36] LABS: Glucose,Whole Blood 172 mg/dL (75-99)
[2018-10-22 18:54] LABS: Glucose,Whole Blood 184 mg/dL (75-99)
[2018-10-22 19:57] LABS: Glucose,Whole Blood 215 mg/dL (75-99)
[2018-10-22] MEDS: ALPRAZolam 0.25 MG TAB PO PRN (20:11)
[2018-10-23 06:54] LABS: Glucose,Whole Blood 96 mg/dL (75-99)
[2018-10-23] MEDS: INSULIN ASPART (NovoLOG) 100 UNIT/ML VIAL SQ SCH ×5 (07:31→19:58)
[2018-10-23] MEDS: CALCIUM CARB-VIT D 500MG-200UN 1 EACH TAB PO SCH ×3 (07:53→17:36)
[2018-10-23] MEDS: FLUoxetine HCL 20 MG CAP PO SCH (07:53)
[2018-10-23] MEDS: METOPROLOL TARTRATE 50 MG TAB PO SCH ×2 (07:53→20:45)
[2018-10-23] MEDS: PREGABALIN 75 MG CAP PO SCH ×2 (07:54→20:45)
[2018-10-23] MEDS: NIFEdipine XL 90 MG TAB.ER.24 PO SCH (07:54)
[2018-10-23] MEDS: HYDROcodone/APAP 5-325MG 1 EACH TAB PO PRN (07:59)
[2018-10-23] MEDS: INSULN ASP PRT/INSULIN ASPART 100 UNIT/ML 10 ML VIAL SQ SCH (09:11)
[2018-10-23 09:17] LABS: Calcium 9.2 mg/dL (8.4-10.2); Magnesium 1.8 mg/dL (1.6-2.3)
--- NOTE | 2018-10-23 10:03 | P.PN ---
Subjective Patient seen in follow-up for acute kidney injury. Unclear as to what her baseline renal function is. Renal function is stable with creatinine at 2.0 today. Oral intake is fair. No vomiting or diarrhea. Good urine output. Potassium was high yesterday which was medically treated with IV insulin and D50 as well as Kayexalate. This morning's potassium is 5.0. Vital signs are stable. General: The patient appeared well nourished and normally developed. HEENT: Head exam is unremarkable. Neck is without jugular venous distension. LUNGS: Lungs are clear to auscultation and percussion. Breath sounds decreased. HEART: Rate and Rhythm are regular. First and second heart sounds normal. No murmurs, rubs or gallops. ABDOMEN: Abdominal exam reveals normal bowel sounds. Non-tender and non- distended. No evidence of peritonitis. EXTREMITITES: No clubbing, cyanosis, or edema. Objective - Vital Signs Vital signs: Vital Signs Temp 97.4 F L 10/23/18 04:51 Pulse 54 L 10/23/18 04:51 Resp 18 10/23/18 04:51 BP 108/51 10/23/18 04:51 Pulse Ox 95 10/23/18 04:51 Intake & Output 10/22/18 10/23/18 10/23/18 17:59 06:59 18:59 Intake Total Balance Weight Intake: Intake, IV Titration Amount Sodium Chloride 0.9% 1, 000 ml @ 50 mls/hr IV . Q20H [facility] Rx#:[id number] Oral Other: Voiding Method # Voids 2 # Bowel Movements - Labs CBC & Chem 7: 10/22/18 08:40 10/23/18 08:28 Labs: Abnormal Lab Results - Last 24 Hours (Table) 10/22/18 10/22/18 10/22/18 Range/Units 08:40 08:40 11:56 WBC 12.8 H (3.8-10.6) k/uL RBC 3.70 L (3.80-5.40) m/uL Hgb 10.8 L (11.4-16.0) gm/dL Neutrophils # 10.5 H (1.3-7.7) k/uL Sodium (137-145) mmol/L Potassium 6.1 H* (3.5-5.1) mmol/L Chloride 108 H (98-107) mmol/L Carbon Dioxide 21 L (22-30) mmol/L BUN 48 H (7-17) mg/dL Creatinine 1.99 H (0.52-1.04) mg/dL Glucose 175 H (74-99) mg/dL POC Glucose (mg/dL) 196 H (75-99) mg/dL 10/22/18 10/22/18 10/22/18 Range/Units 13:49 16:08 17:07 WBC (3.8-10.6) k/uL RBC (3.80-5.40) m/uL Hgb (11.4-16.0) gm/dL Neutrophils # (1.3-7.7) k/uL Sodium 136 L (137-145) mmol/L Potassium 5.5 H (3.5-5.1) mmol/L Chloride (98-107) mmol/L Carbon Dioxide (22-30) mmol/L BUN 48 H (7-17) mg/dL Creatinine 2.24 H (0.52-1.04) mg/dL Glucose 156 H (74-99) mg/dL POC Glucose (mg/dL) 105 H 172 H (75-99) mg/dL 10/22/18 10/22/18 10/22/18 Range/Units 18:52 19:12 19:56 WBC (3.8-10.6) k/uL RBC (3.80-5.40) m/uL Hgb (11.4-16.0) gm/dL Neutrophils # (1.3-7.7) k/uL Sodium (137-145) mmol/L Potassium 5.6 H (3.5-5.1) mmol/L Chloride (98-107) mmol/L Carbon Dioxide (22-30) mmol/L BUN (7-17) mg/dL Creatinine (0.52-1.04) mg/dL Glucose (74-99) mg/dL POC Glucose (mg/dL) 184 H 215 H (75-99) mg/dL 10/23/18 Range/Units 08:28 WBC (3.8-10.6) k/uL RBC (3.80-5.40) m/uL Hgb (11.4-16.0) gm/dL Neutrophils # (1.3-7.7) k/uL Sodium (137-145) mmol/L Potassium (3.5-5.1) mmol/L Chloride 108 H (98-107) mmol/L Carbon Dioxide (22-30) mmol/L BUN 43 H (7-17) mg/dL Creatinine 2.00 H (0.52-1.04) mg/dL Glucose 131 H (74-99) mg/dL POC Glucose (mg/dL) (75-99) mg/dL Microbiology - Last 24 Hours (Table) 10/19/18 11:42 Blood Culture - Preliminary Blood No Growth after 72 hours 10/19/18 08:25 Urine Culture - Final Urine,Clean Catch Klebsiella pneumoniae Escherichia coli Assessment and Plan Plan: assessment: 1. Acute kidney injury secondary to ATN secondary to nonsteroidals as well as use of ARB and Aldactone. Renal function stable. Unknown baseline creatinine. No hydronephrosis noted on renal ultrasound. 2. Atrophic right kidney. 3. Hyperkalemia secondary to acute kidney injury and from the use of Cozaar and Aldactone. Improved with medical management. 4. Diabetes mellitus. 5. UTI maintained on antibiotics. Urine culture positive for Klebsiella and E. coli. 6. Acute right lower extremity radiculopathy. Orthopedic surgery following. 7. Rule out chronic kidney disease. 8. Benign hypertension. Controlled. Plan: Maintain normal saline at 50 mL an hour. Hold Aldactone, Cozaar and metformin for now. Low potassium diet. And oral sodium bicarbonate. Repeat electrolytes in the morning.
[2018-10-23] MEDS: SODIUM BICARBONATE TAB 650 MG TAB PO SCH ×2 (11:40→20:45)
[2018-10-23 12:21] LABS: Glucose,Whole Blood 188 mg/dL (75-99)
[2018-10-23] MEDS ORDERED: MORPHINE SULFATE 2 MG/ML SYRINGE IVP PRN (12:50)
--- NOTE | 2018-10-23 12:55 | P.PN ---
Subjective Progress Note Date: 10/23/18 Principal diagnosis: Acute back pain Patient was seen and examined. No acute events overnight. Patient continues to complain of right-sided back pain radiating down to the right lower foot. Patient reports being unable to move around too much due to the pain. She denies any bladder or bowel incontinence. No saddle anesthesia. Objective - Vital Signs Vital signs: Vital Signs Temp 97.4 F L 10/23/18 04:51 Pulse 54 L 10/23/18 04:51 Resp 18 10/23/18 04:51 BP 108/51 10/23/18 04:51 Pulse Ox 95 10/23/18 04:51 Intake & Output 10/22/18 10/23/18 10/23/18 17:59 06:59 18:59 Intake Total Balance Weight Intake: Intake, IV Titration Amount Sodium Chloride 0.9% 1, 000 ml @ 50 mls/hr IV . Q20H [facility] Rx#:[id number] Oral Other: Voiding Method # Voids 1 # Bowel Movements - Exam General: [non toxic], [no distress], [appears at stated age] Derm: [warm], [dry] Head: [atraumatic], [normocephalic], [symmetric] Eyes: [EOMI], [no lid lag], [anicteric sclera] Mouth: [no lip lesion], [mucus membranes moist] Cardiovascular: [S1S2 reg], [no murmur], [positive DP pulse bilateral] Lungs: [CTA bilateral], [no rhonchi, no rales] , [no accessory muscle use] Abdominal: [soft], [ nontender to palpation], [no guarding], [no appreciable organomegaly] Ext: [no gross muscle atrophy], [no edema], [no contractures] Neuro: [Right lower extremity weakness, 4 out of 5 due to pain. Strength 5 out of 5 otherwise, sensation intact to touch.] Psych: [Alert], [oriented], [appropriate affect] - Labs CBC & Chem 7: 10/22/18 08:40 10/23/18 08:28 Labs: Abnormal Lab Results - Last 24 Hours (Table) 10/22/18 10/22/18 10/22/18 Range/Units 11:56 13:49 16:08 Sodium 136 L (137-145) mmol/L Potassium 5.5 H (3.5-5.1) mmol/L Chloride (98-107) mmol/L BUN 48 H (7-17) mg/dL Creatinine 2.24 H (0.52-1.04) mg/dL Glucose 156 H (74-99) mg/dL POC Glucose (mg/dL) 196 H 105 H (75-99) mg/dL 10/22/18 10/22/18 10/22/18 Range/Units 17:07 18:52 19:12 Sodium (137-145) mmol/L Potassium 5.6 H (3.5-5.1) mmol/L Chloride (98-107) mmol/L BUN (7-17) mg/dL Creatinine (0.52-1.04) mg/dL Glucose (74-99) mg/dL POC Glucose (mg/dL) 172 H 184 H (75-99) mg/dL 10/22/18 10/23/18 10/23/18 Range/Units 19:56 08:28 12:18 Sodium (137-145) mmol/L Potassium (3.5-5.1) mmol/L Chloride 108 H (98-107) mmol/L BUN 43 H (7-17) mg/dL Creatinine 2.00 H (0.52-1.04) mg/dL Glucose 131 H (74-99) mg/dL POC Glucose (mg/dL) 215 H 188 H (75-99) mg/dL Microbiology - Last 24 Hours (Table) 10/19/18 11:42 Blood Culture - Preliminary Blood No Growth after 72 hours 10/19/18 08:25 Urine Culture - Final Urine,Clean Catch Klebsiella pneumoniae Escherichia coli Assessment and Plan Assessment: Assessment and Plan 2. Chronic lower back 3. UTI 4. PETE on possible CKD 5. Diabetes mellitus 6. Hypertension 7. Osteopenia 2. Status post epidural 10/21/2017. Pain management with Lyrica 75 mg by mouth twice a day. Change [place] to Percocet due to ineffectiveness. Add morphine IV as needed for severe pain. Plans for TYLER. Follow PT and OT recommendations. Fall precautions. 3. UA shows large leukocyte esterase and positive for nitrite. Urine culture grows Klebsiella pneumonia, E. coli sensitive to Rocephin. Continue Rocephin IV 1g daily. 4. Creatinine ranged from 1.94 to 2.00. Unknown baseline. Renal diet. Avoid nephrotoxins. Monitor and replace electrolytes. Continue normal saline at 50 mL per hour. Follow nephrology recommendations. 5. Pamiu-qy-qyqf glucose 188. Insulin sliding scale. Continue insulin 20 units every morning. Regular Accu-Cheks. Hypoglycemic precautions. 6. BP 108/51. Continue metoprolol 50 mg by mouth twice a day. Monitor vitals, adjust medications as necessary. 7. Continue calcium carbonate with vitamin D supplementation. Resolved: Hyperkalemia Patient admitted for chronic lower back pain, seen by PT and OT, accepted to rehab for for tomorrow. Treatment for UTI. Will follow nephrology recommendations for elevated creatinine. Likely DC tomorrow.
[2018-10-23] MEDS: oxyCODONE-APAP 10-325MG 1 EACH TAB PO PRN ×2 (14:07→17:36)
[2018-10-23 16:45] LABS: Glucose,Whole Blood 104 mg/dL (75-99)
[2018-10-23 19:51] LABS: Glucose,Whole Blood 104 mg/dL (75-99)
[2018-10-24] MEDS: SODIUM CHLORIDE 0.9% 1,000 ML IV SCH (04:11)
[2018-10-24 07:02] LABS: Glucose,Whole Blood 99 mg/dL (75-99)
[2018-10-24] MEDS: FLUoxetine HCL 20 MG CAP PO SCH (08:29)
[2018-10-24] MEDS: CALCIUM CARB-VIT D 500MG-200UN 1 EACH TAB PO SCH ×2 (08:29→12:14)
[2018-10-24] MEDS: NIFEdipine XL 90 MG TAB.ER.24 PO SCH (08:29)
[2018-10-24] MEDS: PREGABALIN 75 MG CAP PO SCH (08:29)
[2018-10-24] MEDS: SODIUM BICARBONATE TAB 650 MG TAB PO SCH (08:29)
[2018-10-24] MEDS: METOPROLOL TARTRATE 50 MG TAB PO SCH (08:30)
[2018-10-24] MEDS: INSULN ASP PRT/INSULIN ASPART 100 UNIT/ML 10 ML VIAL SQ SCH (08:32)
[2018-10-24] MEDS: INSULIN ASPART (NovoLOG) 100 UNIT/ML VIAL SQ SCH ×2 (08:33→12:14)
[2018-10-24 08:43] LABS: Potassium 4.8 mmol/L (3.5-5.1)
[2018-10-24 08:44] LABS: Calcium 9.2 mg/dL (8.4-10.2)
--- NOTE | 2018-10-24 09:15 | P.DS ---
Providers Date of admission: 10/19/18 11:23 Expected date of discharge: 10/24/18 Attending physician: Filiberto De MD Consults: 10/18/18 17:03 Consult Physician Routine Consulting Provider: Ria Singh Consult Reason/Comments: Lumbar DDD/ DJD Do you want consulting provider notified?: Yes 10/19/18 10:56 Consult Physician Routine Consulting Provider: Steve Funes Consult Reason/Comments: renal failure Do you want consulting provider notified?: Yes 10/19/18 15:17 Consult to Anesthesia Routine Consulting Provider: Anesthesia,Services Consult Reason/Comments: Right LE radiculopathy Primary care physician: [facility] Course: 65-year-old female with a past medical history of essential hypertension congestive heart failure of unknown type, hyperlipidemia, osteoarthritis who presents to the ER via private vehicle with chief complaint of lower back pain that began on Wednesday. Patient denies any history of fall, she reports moderate centralized lower back pain with occasional radiation down into her posterior thigh/hip area. Patient denies any lower extremity weakness she denies any numbness or tingling or saddle paresthesias. She reports trying to use [id number] ibuprofen and Tylenol without any significant improvement in her symptoms, but with actual progressive worsening of her pain. Patient denies any fevers chills or night sweats. In the ER the patient had a workup with imaging of her lower back C/ X-rays of the L-spine and pelvis consistent with degenerative scoliosis, moderate to advanced disc/endplate degenerative change L1/L2 and L2/L3, bilateral hip osteoarthritis and mild osteopenia. Patient was given morphine and ibuprofen the ER and recommended for admission for intractable lower back pain. Patient was evaluated by orthopedic surgery recommended outpatient follow-up in 2-3 weeks for further evaluation. Pain management was consulted as well and patient underwent epidural injection on 10/21/2018. There is initially concerns for sepsis as patient had a leukocytosis of 13.7 on admission. Urinalysis showed positive nitrite and large leukocyte esterase and patient was started on IV Rocephin. Her leukocytosis gradually improved and patient was afebrile throughout her entire stay. Urine cultures grew Klebsiella pneumonia and E. coli that was sensitive to Rocephin. Blood cultures were negative at 96 hours at the time of discharge. Patient was noted to have acute kidney injury with a creatinine of 1.4 on admission. Her creatinine is 1.64 on discharge. Nephrology was consulted and recommended gentle hydration, low potassium diet and to hold her Aldactone, Cozaar and metformin. Patient was noted to have an elevated potassium as high as 6.1 throughout her stay which was brought down with Kayexalate and IV insulin. Patient was seen and examined prior to discharge. No acute events overnight. Patient continues to complain of right-sided back pain radiating down to the right lower foot, though improved after starting Percocet. As per nursing, patient with limited mobility and difficulty ambulating to her chair from her bed. She denies any bladder or bowel incontinence. No saddle anesthesia. She denies any chest pain, shortness of breath or palpitations. General: [non toxic], [no distress], [appears at stated age] Derm: [warm], [dry] Head: [atraumatic], [normocephalic], [symmetric] Eyes: [EOMI], [no lid lag], [anicteric sclera] Mouth: [no lip lesion], [mucus membranes moist] Cardiovascular: [S1S2 reg], [no murmur], [positive DP pulse bilateral] Lungs: [CTA bilateral], [no rhonchi, no rales] , [no accessory muscle use] Abdominal: [soft], [ nontender to palpation], [no guarding], [no appreciable organomegaly] Ext: [no gross muscle atrophy], [no edema], [no contractures] Neuro: [Right lower extremity weakness, 4 out of 5 due to pain. Strength 5 out of 5 otherwise, sensation intact to touch.] Psych: [Alert], [oriented], [appropriate affect] Assessment and Plan 1. Chronic lower back 2. UTI 3. PETE on possible CKD 4. Diabetes mellitus 5. Hypertension 6. Osteopenia 1. Status post epidural 10/21/2017. Pain management with Lyrica 75 mg by mouth twice a day. Change [place] to Percocet due to ineffectiveness. Add morphine IV as needed for severe pain. Plans for [facility]. Follow PT and OT recommendations. Fall precautions. 2. UA shows large leukocyte esterase and positive for nitrite. Urine culture grows Klebsiella pneumonia, E. coli sensitive to Rocephin. Continue Rocephin IV 1g daily. Will DC home with 3 additional days of levofloxacin to complete a total of 10 days of antibiotics. 3. Creatinine ranged from 1.94 to 2.00, 1.64 on discharge. Unknown baseline. Renal diet. Avoid nephrotoxins. Monitor and replace electrolytes. Continue normal saline at 50 mL per hour. Follow nephrology recommendations. 4. [id number]-[id number] glucose 78. Insulin sliding scale. Continue insulin 20 units every morning. Regular Accu-Cheks. Hypoglycemic precautions. 5. BP 141/67. Continue metoprolol 50 mg by mouth twice a day. Monitor vitals, adjust medications as necessary. 6. Continue calcium carbonate with vitamin D supplementation. Resolved: Hyperkalemia Patient admitted for chronic lower back pain, seen by PT and OT, accepted to rehab. Treatment for UTI. DC today. This discharge took less than 30 minutes. Pertinent Studies: Hip and L-spine x-ray, lumbar spine CT, chest x-ray, renal ultrasound Procedures: Epidural injection Patient Condition at Discharge: Good Plan - Discharge Summary Discharge Rx Participant: No New Discharge Prescriptions: New Lidocaine [Lidoderm 5% Patch] 1 patch TRANSDERM DAILY #7 patch Levofloxacin 750 mg PO DAILY #3 tablet Pregabalin [Lyrica] 75 mg PO BID #6 cap Calcium Carb-Vit D 500Mg-200Un [Oscal 500+D] 1 each PO TID-W/MEALS tab oxyCODONE-APAP 10-325MG [Percocet 10-325 mg] 1 each PO Q4H PRN #18 tab PRN Reason: MODERATE Pain Sodium Bicarbonate Tab 650 mg PO BID #60 tab Continue FLUoxetine HCL [PROzac] 40 mg PO DAILY Oxybutynin Chloride [Ditropan] 5 mg PO BID NIFEdipine [NIFEdipine ER] 90 mg PO DAILY Metoprolol Tartrate [Lopressor] 50 mg PO BID ALPRAZolam [Xanax] 0.25 mg PO DAILY PRN PRN Reason: Anxiety Insulin Lispro Protamin/Lispro [humaLOG Mix 75-25 Kwikpen] 20 unit SQ QAM Insulin Lispro Protamin/Lispro [humaLOG Mix 75-25 Kwikpen] 10 unit SQ HS Discontinued Losartan [Cozaar] 50 mg PO DAILY metFORMIN HCL 1,000 mg PO BID Spironolactone [Aldactone] 25 mg PO DAILY Discharge Medication List ALPRAZolam [Xanax] 0.25 mg PO DAILY PRN 10/18/18 [History] FLUoxetine HCL [PROzac] 40 mg PO DAILY 10/18/18 [History] Insulin Lispro Protamin/Lispro [humaLOG Mix 75-25 Kwikpen] 10 unit SQ HS 10/18/18 [History] Insulin Lispro Protamin/Lispro [humaLOG Mix 75-25 Kwikpen] 20 unit SQ QAM 10/18/18 [History] Lidocaine [Lidoderm 5% Patch] 1 patch TRANSDERM DAILY #7 patch 10/18/18 [Rx] Metoprolol Tartrate [Lopressor] 50 mg PO BID 10/18/18 [History] NIFEdipine [NIFEdipine ER] 90 mg PO DAILY 10/18/18 [History] Oxybutynin Chloride [Ditropan] 5 mg PO BID 10/18/18 [History] Calcium Carb-Vit D 500Mg-200Un [Oscal 500+D] 1 each PO TID-W/MEALS tab 10/24/18 [Rx] Levofloxacin 750 mg PO DAILY #3 tablet 10/24/18 [Rx] Pregabalin [Lyrica] 75 mg PO BID #6 cap 10/24/18 [Rx] Sodium Bicarbonate Tab 650 mg PO BID #60 tab 10/24/18 [Rx] oxyCODONE-APAP 10-325MG [Percocet 10-325 mg] 1 each PO Q4H PRN #18 tab 10/24/18 [Rx] Follow up Appointment(s)/Referral(s): Curt Sol, OLVIN [PHYSICIAN [employer]IAN [employer] WORKER] - 2 Weeks (Patient may follow-up with Curt Sol PA-C or Dr. Damián Singh at [facility] in 2-3 weeks following discharge.) None,Stated [REFERRING] - 1-2 days Steve Funes DO [STAFF PHYSICIAN] - 1 Week Patient Instructions/Handouts: Heart Failure (DC), Type 2 Diabetes in Adults: New Diagnosis (DC), Lumbar Radiculopathy (ED) Activity/Diet/Wound Care/Special Instructions: Please follow-up with your primary care provider within 1-2 days of discharge. Please follow-up with orthopedic surgery within 1-2 weeks of discharge. Please follow-up with nephrology within 1 week of discharge. Please take all medications as advised. You will need to follow-up with your primary care provider in order to restore your medication losartan, metformin and spironolactone. These medications were held due to hyperkalemia during her hospitalization. Discharge Disposition: HOME SELF-CARE
[2018-10-24] MEDS: oxyCODONE-APAP 10-325MG 1 EACH TAB PO PRN (09:59)
[2018-10-24 11:25] LABS: HCT 28.1 % (34.0-46.0); Hypochromasia Moderate; MCH 28.4 pg (25.0-35.0); MCHC 30.6 g/dL (31.0-37.0); MCV 92.9 fL (80.0-100.0); Platelet Count 223 k/uL (150-450); RBC 3.03 m/uL (3.80-5.40); WBC 11.3 k/uL (3.8-10.6)
[2018-10-24 11:31] LABS: Glucose,Whole Blood 149 mg/dL (75-99)
[2018-10-24 11:31] LABS: HGB 8.6 gm/dL (11.4-16.0)
[2018-10-24 11:52] VITALS: BP 165/70; PULSE 57; RESP 17; TEMP 97.7
--- NOTE | 2018-10-26 09:01 | CDI ---
Documentation Clarification Form Date: 10/25/18 From: Jeanna Kennedy Melba Venkatesh, [employer] Hours-8:30 am & 5 pm MReshma Admit Date: 10/19/2018 11:23:00 AM Patient Name: Natalia Yuen Visit Number: [id number] Discharge Date: 10/24/2018 1:24:00 PM ATTENTION: The Clinical Documentation Specialists (CDI) and [facility] Coding Staff appreciate your assistance in clarifying documentation. Please respond to the clarification below the line at the bottom and electronically sign. The CDI & [facility] Coding staff will review the response and follow-up if needed. Please note: Queries are made part of the Legal Health Record. If you have any questions, please contact the author of this message via ITS. Dr. Srinivas Lombardinam The patient placed in observation with the intractable lower back pain with radiculopathy. On 10/19 transferred to inpatient, per 10/19 sepsis w UTI and PETE. History/Risk Factors: HTN, CKD, DM, L/LS issues 10/19 WBC: 11.5 Lactic acid: none Blood cultures: no growth Vitals signs on admission (10/19): T-98.4, P-80, P-18, BP-119/61, O2 sat-96 ID Consult: no Antibiotics: IV Rocephin IV Bolus: no In your professional opinion, please clarify if these findings signify one of the following conditions, and cause, if known: Condition Sepsis ruled out SIRS, without underlying infectious process Sepsis Severe Sepsis Septic Shock Other, please specify Unable to determine Identify the (suspected) organism SIRS Criteria (2 or more of the following may indicate SIRS): -Temperature < 96.8F (36C) or > 101.0F (38.3C) -Heart Rate > 90 bpm -Respiratory Rate > 20 breaths/min or PaCO2 < 32 mmHg -White Blood Cell Count > 12,000 or < 4,000 cells/mm3 or > 10% bands -Lactate >2.0 mmol/L (>4.0 is equivalent to septic shock) sepsis ruled out MTDD
== END 2018-10-24 13:24 | DRG 689 ==
LOC: EC 08:12 → 4MS4W 13:48 → OBSVTOIN 10-19 11:23 → 3NMEDONC 10-20 17:56
PROVIDERS: ADMIT Family Medicine; ATTEND Family Medicine
PROC: 3E0S3BZ Introduction of Anesthetic Agent into Epidural Space, Percutaneous Approach (ICD-10-PCS; 2018-10-21)
PROC: 3E0S33Z Introduction of Anti-inflammatory into Epidural Space, Percutaneous Approach (ICD-10-PCS; principal; 2018-10-21 17:15)
DX: N39.0 Urinary tract infection, site not specified (principal); N17.0 Acute kidney failure with tubular necrosis; I13.0 Hypertensive heart and chronic kidney disease with heart failure and stage 1 through stage 4 chronic kidney disease, or unspecified chronic kidney disease; E11.22 Type 2 diabetes mellitus with diabetic chronic kidney disease; I50.9 Heart failure, unspecified; M41.86 Other forms of scoliosis, lumbar region; B96.1 Klebsiella pneumoniae [K. pneumoniae] as the cause of diseases classified elsewhere; E87.5 Hyperkalemia; N18.9 Chronic kidney disease, unspecified; E78.5 Hyperlipidemia, unspecified; M51.16 Intervertebral disc disorders with radiculopathy, lumbar region; M51.17 Intervertebral disc disorders with radiculopathy, lumbosacral region; M47.26 Other spondylosis with radiculopathy, lumbar region; M47.27 Other spondylosis with radiculopathy, lumbosacral region; M48.07 Spinal stenosis, lumbosacral region; M85.80 Other specified disorders of bone density and structure, unspecified site; M16.0 Bilateral primary osteoarthritis of hip; E66.9 Obesity, unspecified; F41.9 Anxiety disorder, unspecified; T39.395A Adverse effect of other nonsteroidal anti-inflammatory drugs [NSAID], initial encounter; T46.5X5A Adverse effect of other antihypertensive drugs, initial encounter; T50.0X5A Adverse effect of mineralocorticoids and their antagonists, initial encounter; Z68.35 Body mass index [BMI] 35.0-35.9, adult; Z79.4 Long term (current) use of insulin; Z79.899 Other long term (current) drug therapy; Z90.49 Acquired absence of other specified parts of digestive tract; Z99.89 Dependence on other enabling machines and devices; Z98.42 Cataract extraction status, left eye; Z98.41 Cataract extraction status, right eye; Z96.1 Presence of intraocular lens; Z88.5 Allergy status to narcotic agent; G89.29 Other chronic pain
CPT/HCPCS: 36415; 62323; 71046; 72100; 72131; 73502; 76770; 80048; 80053; 81001; 82306; 83036; 83735; 84132; 85025; 85027; 85610; 85730; 87040; 87077; 87086; 87186; 93005; 94760; 99285

== ENCOUNTER 2018-11-07 08:18 | Day surgery (SDC) | payer MEDICARE ==
[2018-11-01 13:46] VITALS: BMI 35.9
[~2018-11-07 08:18] MED LIST: SODIUM CHLORIDE 0.9% 500 ML 500 ML IV SCH
[2018-11-07 09:39] VITALS: RESP 20; TEMP 98.4
[2018-11-07 09:48] LABS: Glucose,Whole Blood 168 mg/dL (75-99)
[2018-11-07] MEDS ORDERED: LACTATED RINGERS 1,000 ML IV ONE ×2 (09:54)
--- NOTE | 2018-11-07 10:21 | P.PCN ---
Date of Procedure: 11/07/18 Procedure(s) Performed: PREOPERATIVE DIAGNOSIS: 1- Lumbar Degenerative Disc Diseases 2-Lumbar spondylosis with Facet arthropathy without myelopathy. 3-lumbar radiculopathy POSTOPERATIVE DIAGNOSIS: Same as preop diagnosis PROCEDURE 1. Lumbar epidural steroid injection under fluoroscopic guidance at the L4-5 level. 2. Lumbar epidurogram. ANESTHESIA: Local with 1% lidocaine 3 ml and , moderate sedation with intravenous Versed 2 mg ,and fentanyle 50 Mcg EBL: Minimal PROCEDURE INDICATION: The patient with low back pain and radiculitis symptoms unresponsive to conservative treatment. Fluoroscopy was used to optimize visualization of the needle placement and to maximize safety. PROCEDURE DESCRIPTION / TECHNIQUE: The patient was seen and identified in the preoperative area. Risks, benefits, complications including but not limited to infections ,bleeding ,allergic reaction to the medications ,nerve damage and not complete pain releife , and alternatives were discussed with the patient. The patient agreed to proceed with the procedure and signed the consent. IV was started, and vital signs were stable. Patient was taken to the OR and time out was completed. The patient was placed in the prone position on procedure table and a pillow was placed under the abdomen to reduce lumbar lordosis. The lumbosacral area was prepped and draped in the usual sterile fashion.ere closely monitored during the procedure. Conscious sedation was used during the procedure to decrease patients anxiety. Vital signs was monitered during the entire procedure. Using anterior-posterior fluoroscopy, the L4-5 interlaminar space was identified and the skin over this site was marked and then infiltrated with 1% lidocaine subcutaneously. Subsequently, a 20-gauge Tuohy epidural needle was inserted and advanced toward the epidural space using the ``Loss of resistance technique and guided by AP and lateral fluoroscopy. The correct needle position in the epidural space was verified with the injection of 2 mL of the water soluble contrast dye Isovue 200 contrast and observing an excellent epidurogram with the epidural spread of the dye, after negative aspiration for blood and CSF and in the absence of paresthesias. Again after negative aspiration, a 6 ml mixture containing 40 mg of Depo-medrol , and 2 ml of preservative free Normal Saline, and 2 ml of preservative free lidocaine 1% solution was injected and a washout of epidurogram was seen. Needle was withdrawn intact, skin was cleansed, and bandages were applied. COMPLICATIONS: None DISPOSITION / PLANS: The patient was placed in a supine position and transferred to the recovery area in a stable condition for observation. There was no evidence of lower extremity motor or sensory deficit after the procedure. Patient was discharged from the recovery room after meeting discharge criteria. Home discharge instructions were given to the patient by the staff. The patient was reexamined prior to discharge. The patient will schedule a follow up in the clinic in 2-4 weeks. note= multiple attendant done, to identify the L5-S1 epidural space ,was not successful because patient had severe degenerative disc disease.
[2018-11-07] MEDS ORDERED: IV FLUID CONTINUATION 1,000 ML IV ONE (10:25)
--- NOTE | 2018-11-07 10:35 | FL ---
Fluoroscopy INDICATION: Pain FINDINGS: Fluoroscopy time: 13 seconds. Images obtained: 1. IMPRESSIONS: 1. Documentation of fluoroscopy.
[2018-11-07 10:49] VITALS: BP 117/56; PULSE 78
[2018-11-07 12:17] LABS: Glucose,Whole Blood 127 mg/dL (75-99)
== END 2018-11-07 11:26 | disposition home or self-care (01) ==
LOC: ORPAIN 08:18
PROVIDERS: ATTEND Specialist
DX: M47.26 Other spondylosis with radiculopathy, lumbar region (principal); M51.16 Intervertebral disc disorders with radiculopathy, lumbar region; E11.9 Type 2 diabetes mellitus without complications; Z88.5 Allergy status to narcotic agent
CPT/HCPCS: 62323; J2250; J1030; J3010; Q9966

== ENCOUNTER 2018-11-18 15:05 | Inpatient (IN) | payer MEDICARE ==
[2018-11-18] MEDS ORDERED: NALOXONE 0.4 MG/ML 1 ML VIAL IV STA (15:25)
[2018-11-18] MEDS ORDERED: SODIUM CHLORIDE 0.9% 1,000 ML IV ONE (15:45)
[2018-11-18] MEDS ORDERED: IPRATROPIUM-ALBUTEROL 3 ML NEB INHALATION STA ×2 (15:45→17:58)
[2018-11-18 16:00] LABS: Glucose,Whole Blood 39 mg/dL (75-99)
[2018-11-18 16:00] LABS: Glucose,Whole Blood 37 mg/dL (75-99)
[2018-11-18] MEDS ORDERED: DEXTROSE 50%-WATER 50 ML SYRINGE IVP STA (16:02)
[2018-11-18 16:18] LABS: Albumin 2.9 g/dL (3.5-5.0); Calcium 9.5 mg/dL (8.4-10.2); Potassium 4.9 mmol/L (3.5-5.1); Total Bilirubin 0.6 mg/dL (0.2-1.3); Total Protein 6.2 g/dL (6.3-8.2)
--- NOTE | 2018-11-18 16:19 | ED ---
Altered Mental Status HPI - General Chief Complaint: Altered Mental Status Stated Complaint: AMS Time Seen by Provider: 11/18/18 15:18 Source: EMS, RN notes reviewed, old records reviewed Mode of arrival: EMS Limitations: altered mental status - History of Present Illness Initial Comments: This is a 77-year-old female the ER for evaluation brought in by EMS, patient's poor strain per history, patient does have home nursing sent patient last 2 days of not acting appropriate, not being responsive. Per EMS patient was found to be hypoxic with minimal responsiveness while in the house. History otherwise obtained from patient's chart MD Complaint: altered mental status, decreased responsiveness, weakness -: days(s) (2) Consistency of Symptoms: getting worse Context: change in medication, history of similar presentation Associated Symptoms: denies other symptoms Treatments Prior to Arrival: glucose, IV fluid, oxygen - Related Data Home Medications Medication Instructions Recorded Confirmed FLUoxetine HCL [PROzac] 40 mg PO DAILY 10/18/18 11/18/18 Insulin Lispro Protamin/Lispro 5 unit SQ QAM 10/18/18 11/18/18 [humaLOG Mix 75-25 Kwikpen] Insulin Lispro Protamin/Lispro 8 unit SQ DAILY@1700 10/18/18 11/18/18 [humaLOG Mix 75-25 Kwikpen] Metoprolol Tartrate [Lopressor] 50 mg PO BID 10/18/18 11/18/18 NIFEdipine [NIFEdipine ER] 90 mg PO DAILY 10/18/18 11/18/18 Oxybutynin Chloride [Ditropan] 5 mg PO BID 10/18/18 11/18/18 Acetaminophen Tab [Tylenol Tab] 650 mg PO Q4H PRN 11/01/18 11/18/18 Buprenorphine [Butrans 15 MCG/HR] 1 patch TRANSDERM Q7D 11/01/18 11/18/18 Sodium Bicarbonate Tab 650 mg PO BID 11/01/18 11/18/18 Calcium Carb-Vit D 500Mg-200Un 1 tab PO TID-W/MEALS 11/18/18 11/18/18 [Oscal 500+D] Cyanocobalamin [Vitamin B-12] 500 mcg PO DAILY 11/18/18 11/18/18 Ipratropium-Albuterol Nebulize 3 ml INHALATION RT-TID PRN 11/18/18 11/18/18 [Duoneb 0.5 mg-3 mg/3 ml Soln] oxyCODONE-APAP 10-325MG [Percocet 1 tab PO Q4H PRN 11/18/18 11/18/18 10-325 mg] Previous Rx's Medication Instructions Recorded Pregabalin [Lyrica] 75 mg PO BID #6 cap 10/24/18 Allergies Allergy/AdvReac Type Severity Reaction Status Date / Time codeine AdvReac Nausea & Verified 11/18/18 16:05 Vomiting Review of Systems ROS Statement: Those systems with pertinent positive or pertinent negative responses have been documented in the HPI. ROS Other: All systems not noted in ROS Statement are negative. Past Medical History Past Medical History: Heart Failure, Diabetes Mellitus, Hyperlipidemia, Hypertension, Osteoarthritis (OA) Additional Past Medical History / Comment(s): IDDM type II, pt currently at [facility] for rehab History of Any Multi-Drug Resistant Organisms: None Reported Past Surgical History: Section, Cholecystectomy Additional Past Surgical History / Comment(s): Bilateral cataract removals/lens implants. Past Anesthesia/Blood Transfusion Reactions: No Reported Reaction Additional Past Anesthesia/Blood Transfusion Reaction / Comment(s): Pt recieved blood in past without reaction (after childbirth) Past Psychological History: Anxiety Smoking Status: Never smoker Past Alcohol Use History: None Reported Past Drug Use History: None Reported - Past Family History Father Additional Family Medical History / Comment(s): Father from an industrial exposure at the age of 42 yrs. Mother Family Medical History: No Reported History Additional Family Medical History / Comment(s): Mother lived to be 95 yrs old. General Exam Limitations: altered mental status General appearance: alert, lethargic Head exam: Present: atraumatic, normocephalic, normal inspection Eye exam: Present: normal appearance, PERRL, EOMI. Absent: scleral icterus, conjunctival injection, periorbital swelling ENT exam: Present: normal exam, mucous membranes moist Neck exam: Present: normal inspection. Absent: tenderness, meningismus, lymphadenopathy Respiratory exam: Present: normal lung sounds bilaterally. Absent: respiratory distress, wheezes, rales, rhonchi, stridor Cardiovascular Exam: Present: regular rate, normal rhythm, normal heart sounds. Absent: systolic murmur, diastolic murmur, rubs, gallop, clicks GI/Abdominal exam: Present: soft, normal bowel sounds. Absent: distended, tenderness, guarding, rebound, rigid Extremities exam: Present: normal inspection, full ROM, normal capillary refill. Absent: tenderness, pedal edema, joint swelling, calf tenderness Back exam: Present: normal inspection Neurological exam: Present: alert, oriented X3, CN II-XII intact Psychiatric exam: Present: normal affect, normal mood Skin exam: Present: warm, dry, intact, normal color. Absent: rash Course Vital Signs 11/18/18 11/18/18 11/18/18 15:26 15:32 15:39 Temperature 96.9 F L Pulse Rate 64 Respiratory 16 16 Rate Blood Pressure 127/63 O2 Sat by Pulse 82 L 99 Oximetry 11/18/18 11/18/18 11/18/18 16:15 16:40 16:59 Temperature 97 F L Pulse Rate 74 72 73 Respiratory 16 Rate Blood Pressure 111/61 O2 Sat by Pulse 96 Oximetry 11/18/18 17:56 Temperature Pulse Rate 78 Respiratory 16 Rate Blood Pressure 120/72 O2 Sat by Pulse 98 Oximetry - Reevaluation(s) Reevaluation #1: 11/18/18 18:01 Medical record reviewed Reevaluation #2: 11/18/18 18:01 No real improvement here in the emergency room Medical Decision Making - Medical Decision Making 77 female the ER for evaluation presented for evaluation regarding altered mental status, poor historian though she did improve with Narcan did improve with glucose, is remain altered, positive UTI with multiple other findings. Patient be admitted for dextrose IV antibiotics and continue monitoring - Lab Data Result diagrams: 11/18/18 15:53 11/18/18 15:53 Lab Results 11/18/18 11/18/18 11/18/18 Range/Units 15:53 15:53 15:53 WBC 10.4 (3.8-10.6) k/uL RBC 2.72 L (3.80-5.40) m/uL Hgb 7.9 L (11.4-16.0) gm/dL Hct 23.8 L (34.0-46.0) % MCV 87.7 D (80.0-100.0) fL MCH 28.9 (25.0-35.0) pg MCHC 33.0 (31.0-37.0) g/dL RDW 15.6 H (11.5-15.5) % Plt Count 234 (150-450) k/uL Neutrophils % 81 % Lymphocytes % 9 % Monocytes % 7 % Eosinophils % 2 % Basophils % 0 % Neutrophils # 8.5 H (1.3-7.7) k/uL Lymphocytes # 0.9 L (1.0-4.8) k/uL Monocytes # 0.7 (0-1.0) k/uL Eosinophils # 0.2 (0-0.7) k/uL Basophils # 0.0 (0-0.2) k/uL Hypochromasia Slight PT (9.0-12.0) sec INR (<1.2) APTT (22.0-30.0) sec Sodium 136 L (137-145) mmol/L Potassium 4.9 (3.5-5.1) mmol/L Chloride 97 L (98-107) mmol/L Carbon Dioxide 30 (22-30) mmol/L Anion Gap 9 mmol/L BUN 78 H (7-17) mg/dL Creatinine 1.98 H (0.52-1.04) mg/dL Est GFR (CKD-EPI)AfAm 28 (>60 ml/min/1.73 sqM) Est GFR (CKD-EPI)NonAf 24 (>60 ml/min/1.73 sqM) Glucose 36 L* (74-99) mg/dL POC Glucose (mg/dL) (75-99) mg/dL POC Glu Acetylene Burner ID Calcium 9.5 (8.4-10.2) mg/dL Total Bilirubin 0.6 (0.2-1.3) mg/dL AST 15 (14-36) U/L ALT 31 (9-52) U/L Alkaline Phosphatase 95 (38-126) U/L Ammonia 19 (<30) umol/L Troponin I (0.000-0.034) ng/mL Total Protein 6.2 L (6.3-8.2) g/dL Albumin 2.9 L (3.5-5.0) g/dL Urine Color Urine Appearance (Clear) Urine pH (5.0-8.0) Ur Specific Lamar (1.001-1.035) Urine Protein (Negative) Urine Glucose (UA) (Negative) Urine Ketones (Negative) Urine Blood (Negative) Urine Nitrite (Negative) Urine Bilirubin (Negative) Urine Urobilinogen (<2.0) mg/dL Ur Leukocyte Esterase (Negative) Urine RBC (0-5) /hpf Urine WBC (0-5) /hpf Urine WBC Clumps (None) /hpf Amorphous Sediment (None) /hpf Urine Opiates Screen (NotDetected) Ur Oxycodone Screen (NotDetected) Urine Methadone Screen (NotDetected) Ur Propoxyphene Screen (NotDetected) Ur Barbiturates Screen (NotDetected) U Tricyclic Antidepress (NotDetected) Ur Phencyclidine Scrn (NotDetected) Ur Amphetamines Screen (NotDetected) U Methamphetamines Scrn (NotDetected) U Benzodiazepines Scrn (NotDetected) Urine Cocaine Screen (NotDetected) U Marijuana (THC) Screen (NotDetected) 11/18/18 11/18/18 11/18/18 Range/Units 15:53 15:53 15:58 WBC (3.8-10.6) k/uL RBC (3.80-5.40) m/uL Hgb (11.4-16.0) gm/dL Hct (34.0-46.0) % MCV (80.0-100.0) fL MCH (25.0-35.0) pg MCHC (31.0-37.0) g/dL RDW (11.5-15.5) % Plt Count (150-450) k/uL Neutrophils % % Lymphocytes % % Monocytes % % Eosinophils % % Basophils % % Neutrophils # (1.3-7.7) k/uL Lymphocytes # (1.0-4.8) k/uL Monocytes # (0-1.0) k/uL Eosinophils # (0-0.7) k/uL Basophils # (0-0.2) k/uL Hypochromasia PT 9.9 (9.0-12.0) sec INR 0.9 (<1.2) APTT 19.2 L (22.0-30.0) sec Sodium (137-145) mmol/L Potassium (3.5-5.1) mmol/L Chloride (98-107) mmol/L Carbon Dioxide (22-30) mmol/L Anion Gap mmol/L BUN (7-17) mg/dL Creatinine (0.52-1.04) mg/dL Est GFR (CKD-EPI)AfAm (>60 ml/min/1.73 sqM) Est GFR (CKD-EPI)NonAf (>60 ml/min/1.73 sqM) Glucose (74-99) mg/dL POC Glucose (mg/dL) 37 L (75-99) mg/dL POC Glu Acetylene Burner ID Cee Baker Calcium (8.4-10.2) mg/dL Total Bilirubin (0.2-1.3) mg/dL AST (14-36) U/L ALT (9-52) U/L Alkaline Phosphatase (38-126) U/L Ammonia (<30) umol/L Troponin I 0.056 H* (0.000-0.034) ng/mL Total Protein (6.3-8.2) g/dL Albumin (3.5-5.0) g/dL Urine Color Urine Appearance (Clear) Urine pH (5.0-8.0) Ur Specific Lamar (1.001-1.035) Urine Protein (Negative) Urine Glucose (UA) (Negative) Urine Ketones (Negative) Urine Blood (Negative) Urine Nitrite (Negative) Urine Bilirubin (Negative) Urine Urobilinogen (<2.0) mg/dL Ur Leukocyte Esterase (Negative) Urine RBC (0-5) /hpf Urine WBC (0-5) /hpf Urine WBC Clumps (None) /hpf Amorphous Sediment (None) /hpf Urine Opiates Screen (NotDetected) Ur Oxycodone Screen (NotDetected) Urine Methadone Screen (NotDetected) Ur Propoxyphene Screen (NotDetected) Ur Barbiturates Screen (NotDetected) U Tricyclic Antidepress (NotDetected) Ur Phencyclidine Scrn (NotDetected) Ur Amphetamines Screen (NotDetected) U Methamphetamines Scrn (NotDetected) U Benzodiazepines Scrn (NotDetected) Urine Cocaine Screen (NotDetected) U Marijuana (THC) Screen (NotDetected) 11/18/18 11/18/18 11/18/18 Range/Units 15:59 16:21 16:40 WBC (3.8-10.6) k/uL RBC (3.80-5.40) m/uL Hgb (11.4-16.0) gm/dL Hct (34.0-46.0) % MCV (80.0-100.0) fL MCH (25.0-35.0) pg MCHC (31.0-37.0) g/dL RDW (11.5-15.5) % Plt Count (150-450) k/uL Neutrophils % % Lymphocytes % % Monocytes % % Eosinophils % % Basophils % % Neutrophils # (1.3-7.7) k/uL Lymphocytes # (1.0-4.8) k/uL Monocytes # (0-1.0) k/uL Eosinophils # (0-0.7) k/uL Basophils # (0-0.2) k/uL Hypochromasia PT (9.0-12.0) sec INR (<1.2) APTT (22.0-30.0) sec Sodium (137-145) mmol/L Potassium (3.5-5.1) mmol/L Chloride (98-107) mmol/L Carbon Dioxide (22-30) mmol/L Anion Gap mmol/L BUN (7-17) mg/dL Creatinine (0.52-1.04) mg/dL Est GFR (CKD-EPI)AfAm (>60 ml/min/1.73 sqM) Est GFR (CKD-EPI)NonAf (>60 ml/min/1.73 sqM) Glucose (74-99) mg/dL POC Glucose (mg/dL) 39 L 169 H 145 H (75-99) mg/dL POC Glu Acetylene Burner Cee Bernard Nicole Chandler, Andrew Calcium (8.4-10.2) mg/dL Total Bilirubin (0.2-1.3) mg/dL AST (14-36) U/L ALT (9-52) U/L Alkaline Phosphatase (38-126) U/L Ammonia (<30) umol/L Troponin I (0.000-0.034) ng/mL Total Protein (6.3-8.2) g/dL Albumin (3.5-5.0) g/dL Urine Color Urine Appearance (Clear) Urine pH (5.0-8.0) Ur Specific Lamar (1.001-1.035) Urine Protein (Negative) Urine Glucose (UA) (Negative) Urine Ketones (Negative) Urine Blood (Negative) Urine Nitrite (Negative) Urine Bilirubin (Negative) Urine Urobilinogen (<2.0) mg/dL Ur Leukocyte Esterase (Negative) Urine RBC (0-5) /hpf Urine WBC (0-5) /hpf Urine WBC Clumps (None) /hpf Amorphous Sediment (None) /hpf Urine Opiates Screen (NotDetected) Ur Oxycodone Screen (NotDetected) Urine Methadone Screen (NotDetected) Ur Propoxyphene Screen (NotDetected) Ur Barbiturates Screen (NotDetected) U Tricyclic Antidepress (NotDetected) Ur Phencyclidine Scrn (NotDetected) Ur Amphetamines Screen (NotDetected) U Methamphetamines Scrn (NotDetected) U Benzodiazepines Scrn (NotDetected) Urine Cocaine Screen (NotDetected) U Marijuana (THC) Screen (NotDetected) 11/18/18 11/18/18 11/18/18 Range/Units 16:59 17:15 17:56 WBC (3.8-10.6) k/uL RBC (3.80-5.40) m/uL Hgb (11.4-16.0) gm/dL Hct (34.0-46.0) % MCV (80.0-100.0) fL MCH (25.0-35.0) pg MCHC (31.0-37.0) g/dL RDW (11.5-15.5) % Plt Count (150-450) k/uL Neutrophils % % Lymphocytes % % Monocytes % % Eosinophils % % Basophils % % Neutrophils # (1.3-7.7) k/uL Lymphocytes # (1.0-4.8) k/uL Monocytes # (0-1.0) k/uL Eosinophils # (0-0.7) k/uL Basophils # (0-0.2) k/uL Hypochromasia PT (9.0-12.0) sec INR (<1.2) APTT (22.0-30.0) sec Sodium (137-145) mmol/L Potassium (3.5-5.1) mmol/L Chloride (98-107) mmol/L Carbon Dioxide (22-30) mmol/L Anion Gap mmol/L BUN (7-17) mg/dL Creatinine (0.52-1.04) mg/dL Est GFR (CKD-EPI)AfAm (>60 ml/min/1.73 sqM) Est GFR (CKD-EPI)NonAf (>60 ml/min/1.73 sqM) Glucose (74-99) mg/dL POC Glucose (mg/dL) 130 H 117 H (75-99) mg/dL POC Glu Acetylene Burner FLORENCIA Baker, Cee Baker, Cee Calcium (8.4-10.2) mg/dL Total Bilirubin (0.2-1.3) mg/dL AST (14-36) U/L ALT (9-52) U/L Alkaline Phosphatase (38-126) U/L Ammonia (<30) umol/L Troponin I (0.000-0.034) ng/mL Total Protein (6.3-8.2) g/dL Albumin (3.5-5.0) g/dL Urine Color Yellow Urine Appearance Cloudy H (Clear) Urine pH 7.0 (5.0-8.0) Ur Specific Lamar 1.011 (1.001-1.035) Urine Protein 1+ H (Negative) Urine Glucose (UA) Negative (Negative) Urine Ketones Negative (Negative) Urine Blood Negative (Negative) Urine Nitrite Negative (Negative) Urine Bilirubin Negative (Negative) Urine Urobilinogen <2.0 (<2.0) mg/dL Ur Leukocyte Esterase Large H (Negative) Urine RBC <1 (0-5) /hpf Urine WBC >182 H (0-5) /hpf Urine WBC Clumps Many H (None) /hpf Amorphous Sediment Rare H (None) /hpf Urine Opiates Screen Not Detected (NotDetected) Ur Oxycodone Screen Detected H (NotDetected) Urine Methadone Screen Not Detected (NotDetected) Ur Propoxyphene Screen Not Detected (NotDetected) Ur Barbiturates Screen Not Detected (NotDetected) U Tricyclic Antidepress Not Detected (NotDetected) Ur Phencyclidine Scrn Not Detected (NotDetected) Ur Amphetamines Screen Not Detected (NotDetected) U Methamphetamines Scrn Not Detected (NotDetected) U Benzodiazepines Scrn Detected H (NotDetected) Urine Cocaine Screen Not Detected (NotDetected) U Marijuana (THC) Screen Not Detected (NotDetected) - EKG Data -: EKG Interpreted by Me (EKG shows A. fib rate of 72, QRS 80, QTC 440) - Radiology Data Radiology results: report reviewed (CT brain chest x-ray negative for acute disease), image reviewed Disposition Clinical Impression: UTI (urinary tract infection), Altered mental status, Hypoxia, Hypoglycemia, ARF (acute renal failure) Disposition: ADMITTED IP TO THIS HOSP Condition: Fair Is patient prescribed a controlled substance at d/c from ED?: No Referrals: Racheal Edwards MD [Primary Care Provider] - 1-2 days
[2018-11-18 16:22] LABS: Glucose,Whole Blood 169 mg/dL (75-99)
[2018-11-18 16:27] LABS: Basophils % (A) 0 %; Eosinophils # (A) 0.2 k/uL (0-0.7); Eosinophils % (A) 2 %; HCT 23.8 % (34.0-46.0); HGB 7.9 gm/dL (11.4-16.0); Hypochromasia Slight; INR 0.9 (<1.2); Lymphocytes # (A) 0.9 k/uL (1.0-4.8); Lymphocytes % (A) 9 %; MCH 28.9 pg (25.0-35.0); Mean Platelet Volume 8.2; Monocytes # (A) 0.7 k/uL (0-1.0); Monocytes % (A) 7 %; Neutrophils # (A) 8.5 k/uL (1.3-7.7); Neutrophils % (A) 81 %; Platelet Count 234 k/uL (150-450); Prothrombin Time 9.9 sec (9.0-12.0); RBC 2.72 m/uL (3.80-5.40); RDW 15.6 % (11.5-15.5); WBC 10.4 k/uL (3.8-10.6)
[2018-11-18 16:30] LABS: MCV 87.7 fL (80.0-100.0)
[2018-11-18 16:46] LABS: Glucose,Whole Blood 145 mg/dL (75-99)
[2018-11-18 16:48] LABS: Partial Thromboplastin Time 19.2 sec (22.0-30.0)
[2018-11-18 17:00] LABS: Glucose,Whole Blood 130 mg/dL (75-99)
[2018-11-18 17:33] LABS: Amorphous Sediment,Urine Rare /hpf; Appearance,Urine Cloudy (Clear); Bilirubin,Urine Negative (Negative); Blood,Urine Negative (Negative); Color,Urine Yellow; Glucose,Urine (UA) Negative (Negative); Ketones,Urine Negative (Negative); Leukocyte Esterase,Urine Large (Negative); Nitrite,Urine Negative (Negative); Protein,Urine 1+ (Negative); RBC,Urine <1 /hpf (0-5); Specific Gravity,Urine 1.011 (1.001-1.035); Urobilinogen,Urine <2.0 mg/dL (<2.0); WBC,Urine >182 /hpf (0-5)
[2018-11-18 17:36] LABS: Amphetamine Screen,Urine Not Detected (NotDetected); Barbiturate Screen,Urine Not Detected (NotDetected); Benzodiazepines Screen,Urine Detected (NotDetected); Cocaine Screen,Urine Not Detected (NotDetected); Methadone Screen, Urine Not Detected (NotDetected); Opiate Screen,Urine Not Detected (NotDetected); Oxycodone Screen, Urine Detected (NotDetected); Phencyclidine Screen,Urine Not Detected (NotDetected); Tricyclic Antidepressant,Urine Not Detected (NotDetected); Urn Cannabinoid Scrn Not Detected (NotDetected)
[2018-11-18 17:57] LABS: Glucose,Whole Blood 117 mg/dL (75-99)
[2018-11-18] MEDS ORDERED: DEXTROSE 5%-0.45% NACL 1,000 ML IV ONE (17:57)
[2018-11-18] MEDS ORDERED: methylPREDNISolone SOD SUCCI 125 MG/2 ML VIAL IV STA (17:58)
--- NOTE | 2018-11-18 18:02 | CT ---
EXAMINATION: CT brain wo con DATE AND TIME: 11/18/2018 5:54 PM CLINICAL INDICATION: PHH; altered mental status TECHNIQUE: Standard departmental protocol.; 1129.4; COMPARISON: None. FINDINGS: The calvarium is intact. There is no intracranial hemorrhage. There is no intracranial mass or mass effect. No definite new intra-axial or extra-axial attenuation defect. The paranasal sinuses, middle ear cavities, and mastoid sinus air cells are clear. The orbits are unremarkable. IMPRESSION: NO ACUTE PROCESS.
[2018-11-18] MEDS: methylPREDNISolone SOD SUCCI 125 MG/2 ML VIAL IV SCH ×2 (18:29→23:50)
--- NOTE | 2018-11-18 18:34 | XR ---
EXAMINATION: XR chest 2V DATE AND TIME: 11/18/2018 5:46 PM CLINICAL INDICATION: PHH; altered mental status TECHNIQUE: AP and lateral COMPARISON: 10/19/2018 FINDINGS: Cardiac silhouette size is at least moderately enlarged, appearing greater than that on the prior rafael dy, consider pericardial effusion. The striking radiographic finding is complete silhouetting of the pulmonary vasculature bilaterally, particularly on the right, by an interstitial and alveolar process consistent with alveolar phase pul monary edema, marked in degree. There are [id number] pleural effusions bilaterally with partial bibasilar airlessness, particu larly on the left. No abnormal gas collections are evident. No definite acute skeletal or soft tissue findings. IMPRESSION: MARKED PULMONARY EDEMA, WITH INCREASED CARDIAC SILHOUETTE SIZE , AND BILATERAL PLEURAL EFFUSIONS. THE SE FINDINGS ARE NEW SINCE THE PRIOR STUDY.
[2018-11-18 18:49] LABS: Glucose,Whole Blood 104 mg/dL (75-99)
[2018-11-18 20:08] LABS: Glucose,Whole Blood 103 mg/dL (75-99)
[2018-11-18] MEDS: IPRATROPIUM-ALBUTEROL 3 ML NEB INHALATION SCH (20:47)
[2018-11-18 21:50] LABS: Glucose,Whole Blood 111 mg/dL (75-99)
[2018-11-18 22:48] VITALS: BMI 37.7
[2018-11-18 23:00] LABS: Glucose,Whole Blood 113 mg/dL (75-99)
[2018-11-19 02:39] LABS: Glucose,Whole Blood 156 mg/dL (75-99)
[2018-11-19] MEDS: SODIUM CHLORIDE 0.9% 1,000 ML IV SCH ×3 (04:22→12:28)
[2018-11-19 06:42] LABS: Glucose,Whole Blood 170 mg/dL (75-99)
[2018-11-19] MEDS: INSULIN ASPART (NovoLOG) 100 UNIT/ML VIAL SQ SCH ×4 (06:59→23:50)
[2018-11-19] MEDS: methylPREDNISolone SOD SUCCI 125 MG/2 ML VIAL IV SCH ×3 (06:59→17:23)
[2018-11-19] MEDS: IPRATROPIUM-ALBUTEROL 3 ML NEB INHALATION SCH ×4 (08:15→19:39)
[2018-11-19] MEDS: ENOXAPARIN 40 MG/0.4 ML SYRINGE SQ SCH (08:30)
[2018-11-19] MEDS: METOPROLOL TARTRATE 50 MG TAB PO SCH ×2 (10:04→23:49)
[2018-11-19 12:05] LABS: Glucose,Whole Blood 257 mg/dL (75-99)
[2018-11-19] MEDS ORDERED: ACETAMINOPHEN TAB 325 MG TAB PO PRN (13:07)
[2018-11-19] MEDS ORDERED: BUPRENORPHINE TRANSDERM SCH (13:15)
[2018-11-19] MEDS: PREGABALIN 75 MG CAP PO SCH ×2 (13:38→23:50)
[2018-11-19 14:16] LABS: Anisocytosis Slight; Basophils % (A) 0 %; Eosinophils % (A) 0 %; HCT 22.8 % (34.0-46.0); HGB 7.1 gm/dL (11.4-16.0); Hypochromasia Moderate; Lymphocytes # (A) 0.4 k/uL (1.0-4.8); Lymphocytes % (A) 6 %; MCH 27.1 pg (25.0-35.0); MCHC 31.2 g/dL (31.0-37.0); MCV 86.9 fL (80.0-100.0); Mean Platelet Volume 10.3; Monocytes # (A) 0.2 k/uL (0-1.0); Monocytes % (A) 3 %; Neutrophils # (A) 6.1 k/uL (1.3-7.7); Neutrophils % (A) 90 %; Platelet Count 190 k/uL (150-450); RBC 2.62 m/uL (3.80-5.40); WBC 6.7 k/uL (3.8-10.6)
[2018-11-19 14:35] LABS: Calcium 8.9 mg/dL (8.4-10.2); Potassium 4.7 mmol/L (3.5-5.1)
[2018-11-19] MEDS ORDERED: MAGNESIUM HYDROXIDE 2,400 MG/10 ML CUP PO PRN (15:51)
[2018-11-19 16:34] LABS: Glucose,Whole Blood 194 mg/dL (75-99)
[2018-11-19] MEDS: CALCIUM CARB-VIT D 500MG-200UN 1 EACH TAB PO SCH (17:22)
[2018-11-19] MEDS: FLUoxetine HCL 20 MG CAP PO SCH (17:22)
--- NOTE | 2018-11-19 19:54 | P.HPIM ---
History of Present Illness H&P Date: 11/19/18 Chief Complaint: Altered mental status Patient is a 77 old female with a known history of insulin-dependent diabetes type 2, hypertension, anxiety And osteoarthritis with other multiple medical problems including moderate obesity BMI 37.5% to ER from [facility] due to also mental status and not being responsive. Patient has been lethargic for the past 2 days and decreased responsiveness. Patient was found have hypoxic with minimal responsiveness while in the [facility]. Otherwise patient is a poor historian and could not provide any history at this time. Patient was found have hypoglycemic and hypoxic on admission. Patient also has generalized weakness. CBG on admission is 36 Troponin 0.056 UA is positive for infection UDS is positive for oxycodone and benzodiazepines Hemoglobin 7.9 Review of Systems Constitutional: Patient denies any fever or chills . Generalized weakness.. Abdomen: Patient denied nausea vomiting and diarrhea and abdominal pain. Cardiovascular: Patient denies any chest pain or short of breath no palpitations. Respiratory: patient denied any cough is from production. No shortness of breath Neurologic: Patient denied any numbness or tingling headache. Complete review of systems could not be obtained from the patient. Past Medical History Past Medical History: Heart Failure, Diabetes Mellitus, Hyperlipidemia, Hyperte nsion, Osteoarthritis (OA) Additional Past Medical History / Comment(s): IDDM type II, pt currently at [facility] for rehab History of Any Multi-Drug Resistant Organisms: None Reported Past Surgical History: Section, Cholecystectomy Additional Past Surgical History / Comment(s): Bilateral cataract removals/lens implants. Past Anesthesia/Blood Transfusion Reactions: No Reported Reaction Additional Past Anesthesia/Blood Transfusion Reaction / Comment(s): Pt recieved blood in past without reaction (after childbirth) Past Psychological History: Anxiety Smoking Status: Never smoker Past Alcohol Use History: None Reported Past Drug Use History: None Reported - Past Family History Father Additional Family Medical History / Comment(s): Father from an industrial exposure at the age of 42 yrs. Mother Family Medical History: No Reported History Additional Family Medical History / Comment(s): Mother lived to be 95 yrs old. Medications and Allergies Home Medications Medication Instructions Recorded Confirmed Type FLUoxetine HCL [PROzac] 40 mg PO DAILY 10/18/18 11/18/18 History Insulin Lispro Protamin/Lispro 5 unit SQ QAM 10/18/18 11/18/18 History [humaLOG Mix 75-25 Kwikpen] Insulin Lispro Protamin/Lispro 8 unit SQ DAILY@1700 10/18/18 11/18/18 History [humaLOG Mix 75-25 Kwikpen] Metoprolol Tartrate [Lopressor] 50 mg PO BID 10/18/18 11/18/18 History NIFEdipine [NIFEdipine ER] 90 mg PO DAILY 10/18/18 11/18/18 History Oxybutynin Chloride [Ditropan] 5 mg PO BID 10/18/18 11/18/18 History Pregabalin [Lyrica] 75 mg PO BID #6 cap 10/24/18 11/18/18 Rx Acetaminophen Tab [Tylenol Tab] 650 mg PO Q4H PRN 11/01/18 11/18/18 History Buprenorphine [Butrans 15 MCG/HR] 1 patch TRANSDERM Q7D 11/01/18 11/18/18 History Sodium Bicarbonate Tab 650 mg PO BID 11/01/18 11/18/18 History Calcium Carb-Vit D 500Mg-200Un 1 tab PO TID-W/MEALS 11/18/18 11/18/18 History [Oscal 500+D] Cyanocobalamin [Vitamin B-12] 500 mcg PO DAILY 11/18/18 11/18/18 History Ipratropium-Albuterol Nebulize 3 ml INHALATION RT-TID PRN 11/18/18 11/18/18 History [Duoneb 0.5 mg-3 mg/3 ml Soln] oxyCODONE-APAP 10-325MG [Percocet 1 tab PO Q4H PRN 11/18/18 11/18/18 History 10-325 mg] Allergies Allergy/AdvReac Type Severity Reaction Status Date / Time codeine AdvReac Nausea & Verified 11/18/18 16:05 Vomiting Physical Exam Vitals: Vital Signs Temp Pulse Pulse Resp BP BP Pulse Ox 11/19/18 11:53 84 11/19/18 11:43 83 94 L 11/19/18 11:40 98.2 F 98 20 123/80 97 11/19/18 08:42 85 20 11/19/18 08:41 97.9 F 85 20 128/82 95 11/19/18 04:00 97.9 F 98 18 119/73 90 L 11/19/18 00:00 97.4 F L 88 19 117/67 94 L 11/18/18 21:52 100 20 112/70 95 11/18/18 21:00 98 16 117/71 95 11/18/18 20:58 78 11/18/18 20:48 76 11/18/18 20:00 98.0 F 106 H 20 110/82 93 L 11/18/18 18:58 106 H 18 104/76 93 L 11/18/18 18:49 71 18 111/88 98 11/18/18 18:27 80 11/18/18 18:17 88 11/18/18 17:56 78 16 120/72 98 11/18/18 16:59 97 F L 73 16 111/61 96 11/18/18 16:40 72 11/18/18 16:15 74 11/18/18 15:39 99 11/18/18 15:32 96.9 F L 64 16 127/63 82 L 11/18/18 15:26 16 Intake and Output 11/18/18 11/19/18 11/19/18 22:59 06:59 14:59 Intake Total 425 290 Output Total 500 350 425 Balance -500 75 -135 Intake: Intake, IV Titration 425 50 Amount Dextrose 5%-0.45% NaCl 1, 375 000 ml @ 75 mls/hr IV . [id number] ONE Rx#:[id number] cefTRIAXone 1 gm In 50 Sodium Chloride 0.9% 50 ml @ 100 mls/hr IVPB Q24HR [facility] Rx#:[id number] cefTRIAXone 2 gm In 50 Sodium Chloride 0.9% 50 ml @ 100 mls/hr IVPB ONCE [facility] Rx#:[id number] Oral 240 Output: Urine 500 350 425 Straight 500 Other: Voiding Method Diaper Bedpan Bedpan Incontinent Diaper Diaper Incontinent # Voids 3 Weight 86.183 kg 93 kg PHYSICAL EXAMINATION: Patient is lying in the bed comfortably, no acute distress, awake alert and oriented but confused.. HEENT: Normocephalic. Neck is supple. Pupils reactive. Nostrils clear. Oral cavity is moist. Ears reveal no drainage. Neck reveals no JVD, carotid bruits, or thyromegaly. CHEST EXAMINATION: Trachea is central. Symmetrical expansion. Bibasilar diminished air entry. Lung hong clear to auscultation and percussion. CARDIAC: Normal S1, S2 with no gallops. No murmurs ABDOMEN: Soft. Bowel sounds normal. No organomegaly. No abdominal bruits. Extremities: reveal no edema. No clubbing or cyanosis Neurologically awake, alert, oriented x2-3 with well-coordinated movements. No focal deficits noted Skin: No rash or skin lesions. Psychiatric: Coperative. Could not be assessedcompletely Musculoskeletal: No joint swelling or deformity. Normal range of motion. s Results CBC & Chem 7: 11/19/18 13:45 11/19/18 13:45 Labs: Abnormal Lab Results - Last 24 Hours (Table) 11/18/18 11/18/18 11/18/18 Range/Units 15:53 15:53 15:53 RBC 2.72 L (3.80-5.40) m/uL Hgb 7.9 L (11.4-16.0) gm/dL Hct 23.8 L (34.0-46.0) % RDW 15.6 H (11.5-15.5) % Neutrophils # 8.5 H (1.3-7.7) k/uL Lymphocytes # 0.9 L (1.0-4.8) k/uL APTT 19.2 L (22.0-30.0) sec Sodium 136 L (137-145) mmol/L Chloride 97 L (98-107) mmol/L BUN 78 H (7-17) mg/dL Creatinine 1.98 H (0.52-1.04) mg/dL Glucose 36 L* (74-99) mg/dL POC Glucose (mg/dL) (75-99) mg/dL Troponin I (0.000-0.034) ng/mL Total Protein 6.2 L (6.3-8.2) g/dL Albumin 2.9 L (3.5-5.0) g/dL Urine Appearance (Clear) Urine Protein (Negative) Ur Leukocyte Esterase (Negative) Urine WBC (0-5) /hpf Urine WBC Clumps (None) /hpf Amorphous Sediment (None) /hpf Ur Oxycodone Screen (NotDetected) U Benzodiazepines Scrn (NotDetected) 11/18/18 11/18/18 11/18/18 Range/Units 15:53 15:58 15:59 RBC (3.80-5.40) m/uL Hgb (11.4-16.0) gm/dL Hct (34.0-46.0) % RDW (11.5-15.5) % Neutrophils # (1.3-7.7) k/uL Lymphocytes # (1.0-4.8) k/uL APTT (22.0-30.0) sec Sodium (137-145) mmol/L Chloride (98-107) mmol/L BUN (7-17) mg/dL Creatinine (0.52-1.04) mg/dL Glucose (74-99) mg/dL POC Glucose (mg/dL) 37 L 39 L (75-99) mg/dL Troponin I 0.056 H* (0.000-0.034) ng/mL Total Protein (6.3-8.2) g/dL Albumin (3.5-5.0) g/dL Urine Appearance (Clear) Urine Protein (Negative) Ur Leukocyte Esterase (Negative) Urine WBC (0-5) /hpf Urine WBC Clumps (None) /hpf Amorphous Sediment (None) /hpf Ur Oxycodone Screen (NotDetected) U Benzodiazepines Scrn (NotDetected) 11/18/18 11/18/18 11/18/18 Range/Units 16:21 16:40 16:59 RBC (3.80-5.40) m/uL Hgb (11.4-16.0) gm/dL Hct (34.0-46.0) % RDW (11.5-15.5) % Neutrophils # (1.3-7.7) k/uL Lymphocytes # (1.0-4.8) k/uL APTT (22.0-30.0) sec Sodium (137-145) mmol/L Chloride (98-107) mmol/L BUN (7-17) mg/dL Creatinine (0.52-1.04) mg/dL Glucose (74-99) mg/dL POC Glucose (mg/dL) 169 H 145 H 130 H (75-99) mg/dL Troponin I (0.000-0.034) ng/mL Total Protein (6.3-8.2) g/dL Albumin (3.5-5.0) g/dL Urine Appearance (Clear) Urine Protein (Negative) Ur Leukocyte Esterase (Negative) Urine WBC (0-5) /hpf Urine WBC Clumps (None) /hpf Amorphous Sediment (None) /hpf Ur Oxycodone Screen (NotDetected) U Benzodiazepines Scrn (NotDetected) 11/18/18 11/18/18 11/18/18 Range/Units 17:15 17:56 18:48 RBC (3.80-5.40) m/uL Hgb (11.4-16.0) gm/dL Hct (34.0-46.0) % RDW (11.5-15.5) % Neutrophils # (1.3-7.7) k/uL Lymphocytes # (1.0-4.8) k/uL APTT (22.0-30.0) sec Sodium (137-145) mmol/L Chloride (98-107) mmol/L BUN (7-17) mg/dL Creatinine (0.52-1.04) mg/dL Glucose (74-99) mg/dL POC Glucose (mg/dL) 117 H 104 H (75-99) mg/dL Troponin I (0.000-0.034) ng/mL Total Protein (6.3-8.2) g/dL Albumin (3.5-5.0) g/dL Urine Appearance Cloudy H (Clear) Urine Protein 1+ H (Negative) Ur Leukocyte Esterase Large H (Negative) Urine WBC >182 H (0-5) /hpf Urine WBC Clumps Many H (None) /hpf Amorphous Sediment Rare H (None) /hpf Ur Oxycodone Screen Detected H (NotDetected) U Benzodiazepines Scrn Detected H (NotDetected) 11/18/18 11/18/18 11/18/18 Range/Units 20:07 21:36 22:58 RBC (3.80-5.40) m/uL Hgb (11.4-16.0) gm/dL Hct (34.0-46.0) % RDW (11.5-15.5) % Neutrophils # (1.3-7.7) k/uL Lymphocytes # (1.0-4.8) k/uL APTT (22.0-30.0) sec Sodium (137-145) mmol/L Chloride (98-107) mmol/L BUN (7-17) mg/dL Creatinine (0.52-1.04) mg/dL Glucose (74-99) mg/dL POC Glucose (mg/dL) 103 H 111 H 113 H (75-99) mg/dL Troponin I (0.000-0.034) ng/mL Total Protein (6.3-8.2) g/dL Albumin (3.5-5.0) g/dL Urine Appearance (Clear) Urine Protein (Negative) Ur Leukocyte Esterase (Negative) Urine WBC (0-5) /hpf Urine WBC Clumps (None) /hpf Amorphous Sediment (None) /hpf Ur Oxycodone Screen (NotDetected) U Benzodiazepines Scrn (NotDetected) 11/19/18 11/19/18 11/19/18 Range/Units 02:37 06:36 12:03 RBC (3.80-5.40) m/uL Hgb (11.4-16.0) gm/dL Hct (34.0-46.0) % RDW (11.5-15.5) % Neutrophils # (1.3-7.7) k/uL Lymphocytes # (1.0-4.8) k/uL APTT (22.0-30.0) sec Sodium (137-145) mmol/L Chloride (98-107) mmol/L BUN (7-17) mg/dL Creatinine (0.52-1.04) mg/dL Glucose (74-99) mg/dL POC Glucose (mg/dL) 156 H 170 H 257 H (75-99) mg/dL Troponin I (0.000-0.034) ng/mL Total Protein (6.3-8.2) g/dL Albumin (3.5-5.0) g/dL Urine Appearance (Clear) Urine Protein (Negative) Ur Leukocyte Esterase (Negative) Urine WBC (0-5) /hpf Urine WBC Clumps (None) /hpf Amorphous Sediment (None) /hpf Ur Oxycodone Screen (NotDetected) U Benzodiazepines Scrn (NotDetected) Microbiology - Last 24 Hours (Table) 11/18/18 17:15 Urine Culture - Preliminary Urine,Catheterized Thrombosis Risk Factor Assmnt - DVT/VTE Prophylaxis DVT/VTE Prophylaxis: Pharmacologic Prophylaxis ordered - Choose All That Apply Any of the Below Risk Factors Present?: Yes Each Factor Represents 1 point: Medical pt on bed rest, Obesity (BMI >25), Swollen legs (current) Each Risk Factor Represents 3 Points: Age 75 years or older Thrombosis Risk Factor Assessment Total Risk Factor Score: 6 Thrombosis Risk Factor Assessment Level: High Risk Assessment and Plan Assessment: Altered mental status secondary to acute metabolic encephalopathy and infection Hypoglycemia with decreased responsiveness Acute urinary tract infection Slightly elevated troponin likely demand mismatch Acute on chronic kidney disease stage III Diabetes type 2 insulin-dependent Hyperlipidemia Hypertension Osteoarthritis Medical debility Anxiety Morbid obesity BMI 37.5 DVT prophylaxis subcu heparin Plan: Patient was given IV hydration. Encourage oral intake. Continue with antibiotics in the form of ceftriaxone. Follow-up urine culture report. Repeat troponin is trending down. Patient is awake alert and more oriented today. Will hold insulin and continue with sliding scale for now. Check his B A1c. PTOT and further recommendations based on the clinical course. Time with Patient: Greater than 30
[2018-11-19 20:57] LABS: Glucose,Whole Blood 184 mg/dL (75-99)
[2018-11-19] MEDS: OXYBUTYNIN CHLORIDE 5 MG TAB PO SCH (23:50)
[2018-11-20 05:56] LABS: Glucose,Whole Blood 126 mg/dL (75-99)
[2018-11-20] MEDS: CALCIUM CARB-VIT D 500MG-200UN 1 EACH TAB PO SCH ×3 (06:57→16:58)
[2018-11-20] MEDS: SODIUM CHLORIDE 0.9% 1,000 ML IV SCH ×2 (06:58→10:42)
[2018-11-20 07:06] LABS: Anisocytosis Slight; Basophils % (A) 0 %; Eosinophils # (A) 0.1 k/uL (0-0.7); Eosinophils % (A) 1 %; HCT 22.7 % (34.0-46.0); HGB 7.2 gm/dL (11.4-16.0); Hypochromasia Moderate; Lymphocytes # (A) 1.3 k/uL (1.0-4.8); Lymphocytes % (A) 12 %; MCH 27.2 pg (25.0-35.0); MCHC 31.6 g/dL (31.0-37.0); Mean Platelet Volume 10.9; Monocytes # (A) 0.8 k/uL (0-1.0); Monocytes % (A) 8 %; Neutrophils # (A) 8.3 k/uL (1.3-7.7); Neutrophils % (A) 79 %; Platelet Count 209 k/uL (150-450); RBC 2.64 m/uL (3.80-5.40); RDW 17.1 % (11.5-15.5); WBC 10.6 k/uL (3.8-10.6)
[2018-11-20 07:25] LABS: Calcium 8.8 mg/dL (8.4-10.2); Potassium 4.9 mmol/L (3.5-5.1)
[2018-11-20] MEDS: INSULIN ASPART (NovoLOG) 100 UNIT/ML VIAL SQ SCH ×4 (07:25→22:52)
[2018-11-20] MEDS: ENOXAPARIN 40 MG/0.4 ML SYRINGE SQ SCH (08:14)
[2018-11-20] MEDS: METOPROLOL TARTRATE 50 MG TAB PO SCH ×2 (08:14→22:52)
[2018-11-20] MEDS: PREGABALIN 75 MG CAP PO SCH ×2 (08:14→22:52)
[2018-11-20] MEDS: FLUoxetine HCL 20 MG CAP PO SCH (08:14)
[2018-11-20] MEDS: CYANOCOBALAMIN 500 MCG TAB PO SCH (08:14)
[2018-11-20] MEDS: OXYBUTYNIN CHLORIDE 5 MG TAB PO SCH ×2 (08:15→22:52)
[2018-11-20] MEDS: IPRATROPIUM-ALBUTEROL 3 ML NEB INHALATION SCH ×4 (08:40→20:37)
[2018-11-20 11:46] LABS: Glucose,Whole Blood 149 mg/dL (75-99)
[2018-11-20 15:30] VITALS: RESP 20
[2018-11-20 16:21] LABS: Glucose,Whole Blood 197 mg/dL (75-99)
[2018-11-20 21:20] LABS: Glucose,Whole Blood 155 mg/dL (75-99)
[2018-11-20] MEDS: SULFAMETHOX-TMP 800-160MG 1 EACH TAB PO SCH (22:52)
--- NOTE | 2018-11-21 00:12 | P.PN ---
Subjective Progress Note Date: 11/20/18 Principal diagnosis: Altered mental status Acute urinary tract infection Hypoglycemia Patient is a 77 old female with a known history of insulin-dependent diabetes type 2, hypertension, anxiety And osteoarthritis with other multiple medical problems including moderate obesity BMI 37.5% to ER from [facility] the [place] due to also mental status and not being responsive. Patient has been lethargic for the past 2 days and decreased responsiveness. Patient was found have hypoxic with minimal responsiveness while in the [facility]. Otherwise patient is a poor historian and could not provide any history at this time. Patient was found have hypoglycemic and hypoxic on admission. Patient also has generalized weakness. CBG on admission is 36 Troponin 0.056 UA is positive for infection UDS is positive for oxycodone and benzodiazepines Hemoglobin 7.9 11/20/2018 Patient is more awake and oriented today. Saturating well on nasal cannula. Patient is able to tolerate diet slowly. Renal function slightly improved. No further hypoglycemia noted. Insulin is on hold. Patient is being continued on ceftriaxone for UTI. Urine culture showed MRSA. Antibiotics will be changed to Bactrim DS as per sensitivity report.. PT OT will be continued. Possible transfer back to [facility] in next 24-48 hours. No fever no chills. Current medications reviewed Objective - Vital Signs Vital signs: Vital Signs Temp 97.6 F 11/20/18 15:25 Pulse 92 11/20/18 16:48 Resp 20 11/20/18 15:25 BP 119/80 11/20/18 15:25 Pulse Ox 91 L 11/20/18 15:25 Intake & Output 11/20/18 11/20/18 11/21/18 06:59 18:59 06:59 Intake Total 462 Output Total 300 475 Balance -300 -13 Weight 93 kg Intake: Oral 462 Output: Urine 300 475 Other: Voiding Method Bedpan Bedpan Diaper Diaper Incontinent Incontinent # Voids 2 1 # Bowel Movements 2 2 - Exam PHYSICAL EXAMINATION: Patient is lying in the bed comfortably, no acute distress, awake alert and oriented but confused.. HEENT: Normocephalic. Neck is supple. Pupils reactive. Nostrils clear. Oral cavity is moist. Ears reveal no drainage. Neck reveals no JVD, carotid bruits, or thyromegaly. CHEST EXAMINATION: Trachea is central. Symmetrical expansion. Bibasilar d iminished air entry. Lung hong clear to auscultation and percussion. CARDIAC: Normal S1, S2 with no gallops. No murmurs ABDOMEN: Soft. Bowel sounds normal. No organomegaly. No abdominal bruits. Extremities: reveal no edema. No clubbing or cyanosis Neurologically awake, alert, oriented x2-3 with well-coordinated movements. No focal deficits noted Skin: No rash or skin lesions. Psychiatric: Coperative. Could not be assessedcompletely Musculoskeletal: No joint swelling or deformity. Normal range of motion. s - Labs CBC & Chem 7: 11/20/18 06:26 11/20/18 06:26 Labs: Abnormal Lab Results - Last 24 Hours (Table) 11/19/18 11/20/18 11/20/18 Range/Units 20:42 05:55 06:26 RBC 2.64 L (3.80-5.40) m/uL Hgb 7.2 L (11.4-16.0) gm/dL Hct 22.7 L (34.0-46.0) % RDW 17.1 H (11.5-15.5) % Neutrophils # 8.3 H (1.3-7.7) k/uL Carbon Dioxide (22-30) mmol/L BUN (7-17) mg/dL Creatinine (0.52-1.04) mg/dL Glucose (74-99) mg/dL POC Glucose (mg/dL) 184 H 126 H (75-99) mg/dL 11/20/18 11/20/18 11/20/18 Range/Units 06:26 11:45 16:19 RBC (3.80-5.40) m/uL Hgb (11.4-16.0) gm/dL Hct (34.0-46.0) % RDW (11.5-15.5) % Neutrophils # (1.3-7.7) k/uL Carbon Dioxide 31 H (22-30) mmol/L BUN 61 H (7-17) mg/dL Creatinine 1.72 H (0.52-1.04) mg/dL Glucose 114 H (74-99) mg/dL POC Glucose (mg/dL) 149 H 197 H (75-99) mg/dL Microbiology - Last 24 Hours (Table) 11/18/18 17:15 Urine Culture - Final Urine,Catheterized Methicillin resist S. aureus Assessment and Plan Assessment: Altered mental status secondary to acute metabolic encephalopathy and infection Hypoglycemia with decreased responsiveness. Insulin held. Stable now. Acute urinary tract infection with MRSA Slightly elevated troponin likely demand mismatch Acute on chronic kidney disease stage III Diabetes type 2 insulin-dependent Hyperlipidemia Hypertension Osteoarthritis Medical debility Anxiety Morbid obesity BMI 37.5 DVT prophylaxis subcu heparin Plan: Patient was given IV hydration. Encourage oral intake. Continued with antibiotics in the form of ceftriaxone. Changed to Bactrim DS as per sensitivity report. Repeat troponin is trending down. Patient is awake alert and more oriented today. Will hold insulin and continue with sliding scale for now. Check his B A1c. PTOT and further recommendations based on the clinical course. Time with Patient: Greater than 30
[2018-11-21 06:24] LABS: Glucose,Whole Blood 99 mg/dL (75-99)
[2018-11-21 06:49] LABS: Basophils % (A) 0 %; Eosinophils # (A) 0.2 k/uL (0-0.7); Eosinophils % (A) 2 %; HCT 24.2 % (34.0-46.0); HGB 7.3 gm/dL (11.4-16.0); Hypochromasia Moderate; Lymphocytes # (A) 1.8 k/uL (1.0-4.8); Lymphocytes % (A) 18 %; MCH 26.6 pg (25.0-35.0); MCV 88.6 fL (80.0-100.0); Mean Platelet Volume 8.3; Monocytes # (A) 0.8 k/uL (0-1.0); Monocytes % (A) 9 %; Neutrophils # (A) 6.6 k/uL (1.3-7.7); Neutrophils % (A) 69 %; Platelet Count 210 k/uL (150-450); RBC 2.73 m/uL (3.80-5.40); RDW 15.7 % (11.5-15.5); WBC 9.5 k/uL (3.8-10.6)
[2018-11-21] MEDS: CALCIUM CARB-VIT D 500MG-200UN 1 EACH TAB PO SCH ×3 (06:51→16:26)
[2018-11-21] MEDS: IPRATROPIUM-ALBUTEROL 3 ML NEB INHALATION SCH ×4 (06:59→19:26)
[2018-11-21 07:04] LABS: Calcium 8.7 mg/dL (8.4-10.2); Potassium 5.3 mmol/L (3.5-5.1)
[2018-11-21] MEDS: INSULIN ASPART (NovoLOG) 100 UNIT/ML VIAL SQ SCH ×3 (08:45→16:28)
[2018-11-21] MEDS: ENOXAPARIN 40 MG/0.4 ML SYRINGE SQ SCH (08:45)
[2018-11-21] MEDS: METOPROLOL TARTRATE 50 MG TAB PO SCH (08:49)
[2018-11-21] MEDS: PREGABALIN 75 MG CAP PO SCH (08:49)
[2018-11-21] MEDS: SULFAMETHOX-TMP 800-160MG 1 EACH TAB PO SCH (08:49)
[2018-11-21] MEDS: CYANOCOBALAMIN 500 MCG TAB PO SCH (08:49)
[2018-11-21] MEDS: FLUoxetine HCL 20 MG CAP PO SCH (08:49)
[2018-11-21] MEDS: OXYBUTYNIN CHLORIDE 5 MG TAB PO SCH (08:49)
[2018-11-21 09:35] LABS: Iron Saturation 4.55 (12.00-45.00)
[2018-11-21] MEDS ORDERED: DOXYCYCLINE 100 MG CAP PO SCH (10:30)
[2018-11-21 11:22] LABS: Hemoglobin A1C 6.9 % (4.0-6.0)
[2018-11-21 11:44] LABS: Glucose,Whole Blood 135 mg/dL (75-99)
[2018-11-21 12:18] VITALS: TEMP 98.2
[2018-11-21 15:23] VITALS: BP 133/69
[2018-11-21 16:14] LABS: Glucose,Whole Blood 215 mg/dL (75-99)
[2018-11-21 16:27] VITALS: PULSE 90
[2018-11-22] MEDS ORDERED: ENOXAPARIN 30 MG/0.3 ML SYRINGE SQ SCH (09:00)
== END 2018-11-21 19:46 | disposition home health service (06) | DRG 689 ==
LOC: EC 15:05 → 3SCARD 17:58
PROVIDERS: ADMIT Hospitalist; ATTEND Hospitalist
DX: N39.0 Urinary tract infection, site not specified (principal); G93.41 Metabolic encephalopathy; N17.9 Acute kidney failure, unspecified; I13.0 Hypertensive heart and chronic kidney disease with heart failure and stage 1 through stage 4 chronic kidney disease, or unspecified chronic kidney disease; E11.649 Type 2 diabetes mellitus with hypoglycemia without coma; E11.22 Type 2 diabetes mellitus with diabetic chronic kidney disease; I50.9 Heart failure, unspecified; E66.01 Morbid (severe) obesity due to excess calories; B95.62 Methicillin resistant Staphylococcus aureus infection as the cause of diseases classified elsewhere; N18.3 Chronic kidney disease, stage 3 (moderate); R09.02 Hypoxemia; F41.9 Anxiety disorder, unspecified; E78.5 Hyperlipidemia, unspecified; M19.90 Unspecified osteoarthritis, unspecified site; R77.8 Other specified abnormalities of plasma proteins; Z68.38 Body mass index [BMI] 38.0-38.9, adult; Z79.4 Long term (current) use of insulin; Z79.899 Other long term (current) drug therapy; Z88.5 Allergy status to narcotic agent; Z98.42 Cataract extraction status, left eye; Z98.41 Cataract extraction status, right eye; Z96.1 Presence of intraocular lens
CPT/HCPCS: 36415; 51701; 70450; 71046; 80048; 80053; 80306; 81001; 82140; 82728; 83036; 83540; 83550; 84484; 85025; 85610; 85730; 87077; 87086; 87186; 93005; 94640; 96360; 96361; 96365; 96366; 96375; 99285

== ENCOUNTER → 2018-12-02 | Outpatient (CLI) | payer MEDICARE ==
--- NOTE | 2018-12-02 17:39 | NM ---
EXAMINATION TYPE: NM pul vent and perfuse DATE OF EXAM: 12/02/2018 COMPARISON: NONE HISTORY: Shortness of breath TECHNIQUE: Utilizing inhalation of 40.6 mCi Tc 99m DTPA aerosol and intravenous injection of 5.2 mCi of Tc 99m MAA, ventilation and perfusion images are acquired post injection in multiple projections. FINDINGS: There is central accumulation of radiotracer on the ventilation portion of the study compatible with COPD. A few matched ventilation/perfusion defects are noted. No evidence for perfusion ventilation mi smatch. IMPRESSION: Low probability for pulmonary embolism.
--- NOTE | 2018-12-02 18:11 | US ---
EXAMINATION TYPE: US venous doppler duplex LE DATE OF EXAM: 12/02/2018 5:57 PM COMPARISON: NONE CLINICAL HISTORY: J96.11 Chronic respiratory failure with hypoxia,. Bilateral leg swelling/ Elevated D-Dimer/ No known prior DVT SIDE PERFORMED: Bilateral TECHNIQUE: The lower extremity deep venous system is examined utilizing real time linear array sonog michaela with graded compression, doppler sonography and color-flow sonography. VESSELS IMAGED: External Iliac Vein (EIV) Common Femoral Vein Deep Femoral Vein Greater Saphenous Vein * Femoral Vein Popliteal Vein Small Saphenous Vein * Proximal Calf Veins (* superficial vessels) Right Leg: Negative for DVT Left Leg: Negative for DVT Results called to Dr. Sanchez at time of exam IMPRESSION: No evidence for DVT at this time.
== END | disposition home or self-care (01) ==
LOC: RADNMMAIN 16:25
PROVIDERS: ATTEND Family Medicine
DX: J96.11 Chronic respiratory failure with hypoxia (principal); R60.0 Localized edema
CPT/HCPCS: 93970; 78582; A9540; A9567

== ENCOUNTER 2018-12-31 22:10 | Inpatient (IN) | payer MEDICARE ==
[2018-12-31 23:11] LABS: Glucose,Whole Blood 180 mg/dL (75-99)
[2018-12-31 23:12] LABS: Basophils # (A) 0.1 k/uL (0-0.2); Basophils % (A) 0 %; Eosinophils # (A) 0.2 k/uL (0-0.7); Eosinophils % (A) 2 %; HCT 31.2 % (34.0-46.0); Hypochromasia Slight; Lymphocytes # (A) 2.5 k/uL (1.0-4.8); Lymphocytes % (A) 17 %; MCHC 30.3 g/dL (31.0-37.0); MCV 85.7 fL (80.0-100.0); Mean Platelet Volume 8.2; Monocytes # (A) 0.8 k/uL (0-1.0); Monocytes % (A) 6 %; Neutrophils # (A) 10.9 k/uL (1.3-7.7); Neutrophils % (A) 74 %; Platelet Count 277 k/uL (150-450); RBC 3.64 m/uL (3.80-5.40); RDW 15.7 % (11.5-15.5); WBC 14.8 k/uL (3.8-10.6)
--- NOTE | 2018-12-31 23:14 | ED ---
Weakness HPI - General Stated complaint: Weakness Time Seen by Provider: 12/31/18 22:26 Source: patient, EMS Mode of arrival: EMS - History of Present Illness Initial comments: This patient is a 78-year-old woman who presents to be evaluated for weakness of both legs as well as some tingling to both legs. The patient states that this been going on since probably 7 or 8 PM. She states she has had similar symptoms to this the last time she was developing a urinary tract infection. She states that the last time she had one it made her very weak and she was admitted in the hospital. Patient states that she is currently taking treatment. She has not noted fever or chills. No chest pain, palpitations, dyspnea, lightheadedness, nausea or vomiting. She denies focal weakness or numbness. MD Complaint: generalized weakness, tingling Onset/Timin -: hour(s) Location: LLE, RLE Severity: moderate Quality: tingling, numbness Improves with: none Worsens with: none Context: history of similar Associated Symptoms: denies other symptoms - Related Data Home Medications Medication Instructions Recorded Confirmed FLUoxetine HCL [PROzac] 40 mg PO DAILY 10/18/18 12/31/18 Metoprolol Tartrate [Lopressor] 50 mg PO BID 10/18/18 12/31/18 Oxybutynin Chloride [Ditropan] 5 mg PO BID 10/18/18 12/31/18 Acetaminophen Tab [Tylenol] 650 mg PO Q4H PRN 11/01/18 12/31/18 Calcium Carb-Vit D 500Mg-200Un 1 tab PO TID-W/MEALS 11/18/18 12/31/18 [Oscal 500+D] Cyanocobalamin [Vitamin B-12] 500 mcg PO DAILY 11/18/18 12/31/18 Ipratropium-Albuterol Nebulize 3 ml INHALATION RT-TID PRN 11/18/18 12/31/18 [Duoneb 0.5 mg-3 mg/3 ml Soln] Furosemide [Lasix] 20 mg PO BID 12/31/18 12/31/18 Potassium Chloride [K-Tab ER] 10 meq PO DAILY 12/31/18 12/31/18 Previous Rx's Medication Instructions Recorded Pregabalin [Lyrica] 75 mg PO BID #6 cap 10/24/18 INSULIN ASPART (NovoLOG) [NovoLOG 0 unit SQ ACHS vial 11/21/18 (formulary)] Allergies Allergy/AdvReac Type Severity Reaction Status Date / Time codeine AdvReac Nausea & Verified 12/31/18 22:53 Vomiting Review of Systems ROS Statement: Those systems with pertinent positive or pertinent negative responses have been documented in the HPI. ROS Other: All systems not noted in ROS Statement are negative. Constitutional: Reports: weakness. Denies: fever, chills Eyes: Denies: vision change Respiratory: Denies: cough, dyspnea Cardiovascular: Denies: chest pain, palpitations, orthopnea, edema, syncope Gastrointestinal: Denies: abdominal pain, vomiting, diarrhea Genitourinary: Reports: as per HPI. Denies: dysuria Musculoskeletal: Denies: back pain Skin: Denies: rash Neurological: Reports: as per HPI, numbness, paresthesias. Denies: headache, weakness Past Medical History Past Medical History: Heart Failure, Diabetes Mellitus, Hyperlipidemia, Hypertension, Osteoarthritis (OA) Additional Past Medical History / Comment(s): IDDM type II, pt currently at [facility] for rehab History of Any Multi-Drug Resistant Organisms: MRSA Date of last positivie culture/infection: 11/18/18 MDRO Source:: URINE MRSA Past Surgical History: Section, Cholecystectomy Additional Past Surgical History / Comment(s): Bilateral cataract removals/lens implants. Past Anesthesia/Blood Transfusion Reactions: No Reported Reaction Additional Past Anesthesia/Blood Transfusion Reaction / Comment(s): Pt recieved blood in past without reaction (after childbirth) Past Psychological History: Anxiety Smoking Status: Never smoker Past Alcohol Use History: None Reported Past Drug Use History: None Reported - Past Family History Father Additional Family Medical History / Comment(s): Father from an industrial exposure at the age of 42 yrs. Mother Family Medical History: No Reported History Additional Family Medical History / Comment(s): Mother lived to be 95 yrs old. General Exam General appearance: alert, in no apparent distress Head exam: Present: atraumatic, normocephalic Eye exam: Present: normal appearance. Absent: scleral icterus, conjunctival injection ENT exam: Present: normal oropharynx Neck exam: Present: normal inspection Respiratory exam: Present: normal lung sounds bilaterally. Absent: respiratory distress, wheezes, rales, rhonchi, stridor Cardiovascular Exam: Present: regular rate, normal rhythm, normal heart sounds. Absent: systolic murmur, diastolic murmur, rubs, gallop GI/Abdominal exam: Present: soft. Absent: distended, tenderness, guarding, rebound, rigid, mass Extremities exam: Present: normal inspection, normal capillary refill. Absent: pedal edema, calf tenderness Neurological exam: Present: alert, CN II-XII intact. Absent: motor sensory deficit Skin exam: Present: warm, dry, intact, normal color. Absent: rash Course Vital Signs 12/31/18 12/31/18 01/01/19 22:17 22:37 01:00 Temperature 97.7 F Pulse Rate 73 70 65 Respiratory 18 15 15 Rate Blood Pressure 144/67 141/80 128/64 O2 Sat by Pulse 96 95 98 Oximetry 01/01/19 01/01/19 03:40 04:51 Temperature 98.3 F 97.7 F Pulse Rate 57 L 59 L Respiratory 14 14 Rate Blood Pressure 100/47 103/50 O2 Sat by Pulse 97 98 Oximetry - Reevaluation(s) Reevaluation #1: 01/01/19 00:34 Patient is started on the sepsis pathway bolus based on I feel body weight. EKG Findings - EKG Comments: EKG Findings:: Possible old anterolateral infarct. - EKG Results: EKG: interpreted by DOROTHY, sinus rhythm (Rate proximal 68 bpm), normal ST/T - Blocks, [place], Hypertrophy, ST Abn: AV and intraventricular conduction: 1 AV block QRS axis and voltage: left axis deviation (-30 to -90) Medical Decision Making - Medical Decision Making Attending physician paged and perfect served used. Had not heard back from physician by shift change - Lab Data Result diagrams: 12/31/18 22:30 12/31/18 22:30 Lab Results 12/31/18 12/31/18 12/31/18 Range/Units 22:30 22:30 22:30 WBC 14.8 H (3.8-10.6) k/uL RBC 3.64 L (3.80-5.40) m/uL Hgb 9.5 L D (11.4-16.0) gm/dL Hct 31.2 L (34.0-46.0) % MCV 85.7 (80.0-100.0) fL MCH 26.0 (25.0-35.0) pg MCHC 30.3 L (31.0-37.0) g/dL RDW 15.7 H (11.5-15.5) % Plt Count 277 (150-450) k/uL Neutrophils % 74 % Lymphocytes % 17 % Monocytes % 6 % Eosinophils % 2 % Basophils % 0 % Neutrophils # 10.9 H (1.3-7.7) k/uL Lymphocytes # 2.5 (1.0-4.8) k/uL Monocytes # 0.8 (0-1.0) k/uL Eosinophils # 0.2 (0-0.7) k/uL Basophils # 0.1 (0-0.2) k/uL Hypochromasia Slight PT (9.0-12.0) sec INR (<1.2) APTT (22.0-30.0) sec Sodium 137 (137-145) mmol/L Potassium 4.4 (3.5-5.1) mmol/L Chloride 104 (98-107) mmol/L Carbon Dioxide 22 (22-30) mmol/L Anion Gap 11 mmol/L BUN 57 H (7-17) mg/dL Creatinine 2.49 H (0.52-1.04) mg/dL Est GFR (CKD-EPI)AfAm 21 (>60 ml/min/1.73 sqM) Est GFR (CKD-EPI)NonAf 18 (>60 ml/min/1.73 sqM) Glucose 189 H (74-99) mg/dL POC Glucose (mg/dL) (75-99) mg/dL POC Glu Medical Registrar ID Lactic Ac Sepsis Rflx Plasma Lactic Acid Jeff 2.2 H* (0.7-2.0) mmol/L Calcium 9.6 (8.4-10.2) mg/dL Total Bilirubin 0.8 (0.2-1.3) mg/dL AST 21 (14-36) U/L ALT 11 (9-52) U/L Alkaline Phosphatase 107 (38-126) U/L Troponin I (0.000-0.034) ng/mL Total Protein 6.9 (6.3-8.2) g/dL Albumin 3.6 (3.5-5.0) g/dL Urine Color Urine Appearance (Clear) Urine pH (5.0-8.0) Ur Specific [place] (1.001-1.035) Urine Protein (Negative) Urine Glucose (UA) (Negative) Urine Ketones (Negative) Urine Blood (Negative) Urine Nitrite (Negative) Urine Bilirubin (Negative) Urine Urobilinogen (<2.0) mg/dL Ur Leukocyte Esterase (Negative) Urine RBC (0-5) /hpf Urine WBC (0-5) /hpf Ur Squamous Epith Cells (0-4) /hpf Urine Bacteria (None) /hpf 12/31/18 12/31/18 12/31/18 Range/Units 22:30 22:30 23:07 WBC (3.8-10.6) k/uL RBC (3.80-5.40) m/uL Hgb (11.4-16.0) gm/dL Hct (34.0-46.0) % MCV (80.0-100.0) fL MCH (25.0-35.0) pg MCHC (31.0-37.0) g/dL RDW (11.5-15.5) % Plt Count (150-450) k/uL Neutrophils % % Lymphocytes % % Monocytes % % Eosinophils % % Basophils % % Neutrophils # (1.3-7.7) k/uL Lymphocytes # (1.0-4.8) k/uL Monocytes # (0-1.0) k/uL Eosinophils # (0-0.7) k/uL Basophils # (0-0.2) k/uL Hypochromasia PT 10.4 (9.0-12.0) sec INR 1.0 (<1.2) APTT 22.2 (22.0-30.0) sec Sodium (137-145) mmol/L Potassium (3.5-5.1) mmol/L Chloride (98-107) mmol/L Carbon Dioxide (22-30) mmol/L Anion Gap mmol/L BUN (7-17) mg/dL Creatinine (0.52-1.04) mg/dL Est GFR (CKD-EPI)AfAm (>60 ml/min/1.73 sqM) Est GFR (CKD-EPI)NonAf (>60 ml/min/1.73 sqM) Glucose (74-99) mg/dL POC Glucose (mg/dL) 180 H (75-99) mg/dL POC Glu Medical Registrar ID Elisa Epps Lactic Ac Sepsis Rflx Plasma Lactic Acid Jeff (0.7-2.0) mmol/L Calcium (8.4-10.2) mg/dL Total Bilirubin (0.2-1.3) mg/dL AST (14-36) U/L ALT (9-52) U/L Alkaline Phosphatase (38-126) U/L Troponin I 0.064 H* (0.000-0.034) ng/mL Total Protein (6.3-8.2) g/dL Albumin (3.5-5.0) g/dL Urine Color Urine Appearance (Clear) Urine pH (5.0-8.0) Ur Specific [place] (1.001-1.035) Urine Protein (Negative) Urine Glucose (UA) (Negative) Urine Ketones (Negative) Urine Blood (Negative) Urine Nitrite (Negative) Urine Bilirubin (Negative) Urine Urobilinogen (<2.0) mg/dL Ur Leukocyte Esterase (Negative) Urine RBC (0-5) /hpf Urine WBC (0-5) /hpf Ur Squamous Epith Cells (0-4) /hpf Urine Bacteria (None) /hpf 12/31/18 01/01/19 01/01/19 Range/Units 23:33 00:26 03:14 WBC (3.8-10.6) k/uL RBC (3.80-5.40) m/uL Hgb (11.4-16.0) gm/dL Hct (34.0-46.0) % MCV (80.0-100.0) fL MCH (25.0-35.0) pg MCHC (31.0-37.0) g/dL RDW (11.5-15.5) % Plt Count (150-450) k/uL Neutrophils % % Lymphocytes % % Monocytes % % Eosinophils % % Basophils % % Neutrophils # (1.3-7.7) k/uL Lymphocytes # (1.0-4.8) k/uL Monocytes # (0-1.0) k/uL Eosinophils # (0-0.7) k/uL Basophils # (0-0.2) k/uL Hypochromasia PT (9.0-12.0) sec INR (<1.2) APTT (22.0-30.0) sec Sodium (137-145) mmol/L Potassium (3.5-5.1) mmol/L Chloride (98-107) mmol/L Carbon Dioxide (22-30) mmol/L Anion Gap mmol/L BUN (7-17) mg/dL Creatinine (0.52-1.04) mg/dL Est GFR (CKD-EPI)AfAm (>60 ml/min/1.73 sqM) Est GFR (CKD-EPI)NonAf (>60 ml/min/1.73 sqM) Glucose (74-99) mg/dL POC Glucose (mg/dL) (75-99) mg/dL POC Glu Medical Registrar ID Lactic Ac Sepsis Rflx Y Plasma Lactic Acid Jeff 1.0 (0.7-2.0) mmol/L Calcium (8.4-10.2) mg/dL Total Bilirubin (0.2-1.3) mg/dL AST (14-36) U/L ALT (9-52) U/L Alkaline Phosphatase (38-126) U/L Troponin I (0.000-0.034) ng/mL Total Protein (6.3-8.2) g/dL Albumin (3.5-5.0) g/dL Urine Color Light Yellow Urine Appearance Clear (Clear) Urine pH 5.5 (5.0-8.0) Ur Specific [place] 1.012 (1.001-1.035) Urine Protein Negative (Negative) Urine Glucose (UA) Negative (Negative) Urine Ketones Negative (Negative) Urine Blood Negative (Negative) Urine Nitrite Negative (Negative) Urine Bilirubin Negative (Negative) Urine Urobilinogen <2.0 (<2.0) mg/dL Ur Leukocyte Esterase Trace H (Negative) Urine RBC 2 (0-5) /hpf Urine WBC 4 (0-5) /hpf Ur Squamous Epith Cells <1 (0-4) /hpf Urine Bacteria Rare H (None) /hpf Disposition Clinical Impression: Lactic acidosis, Elevated troponin I measurement Disposition: ADMITTED IP TO THIS HOSP Condition: Fair Is patient prescribed a controlled substance at d/c from ED?: No
[2018-12-31 23:19] LABS: HGB 9.5 gm/dL (11.4-16.0)
[2018-12-31 23:27] LABS: Albumin 3.6 g/dL (3.5-5.0); Calcium 9.6 mg/dL (8.4-10.2); Potassium 4.4 mmol/L (3.5-5.1); Total Bilirubin 0.8 mg/dL (0.2-1.3); Total Protein 6.9 g/dL (6.3-8.2)
--- NOTE | 2018-12-31 23:28 | XR ---
EXAM: XR Chest, 2 Views CLINICAL HISTORY: ITS.REASON XR Reason: Weakness TECHNIQUE: Frontal and lateral views of the chest. COMPARISON: 11/18/18 x-ray IMPRESSION: Cardiomegaly. Previously seen right lung opacity has mostly resolved. There is a 9 mm nodule in the right lower lobe, and 8 mm nodule in the left lower lobe. Recommend correlation with CT or follow-up x-ray to ensure stability or resolution (non-emergently). Mild vascular congestion. No pleural effusion or consolidation.
[2018-12-31 23:30] LABS: Partial Thromboplastin Time 22.2 sec (22.0-30.0); Prothrombin Time 10.4 sec (9.0-12.0)
[2019-01-01] MEDS ORDERED: LEVOFLOXACIN 750MG-D5W PMX 750 MG in DEXTROSE/WATER 1 150ML.BAG IVPB STA (00:32)
[2019-01-01] MEDS ORDERED: SODIUM CHLORIDE 0.9% 2,000 ML IV ONE (00:33)
[2019-01-01 00:43] LABS: Appearance,Urine Clear (Clear); Bacteria,Urine Rare /hpf; Bilirubin,Urine Negative (Negative); Blood,Urine Negative (Negative); Color,Urine Light Yellow; Glucose,Urine (UA) Negative (Negative); Ketones,Urine Negative (Negative); Leukocyte Esterase,Urine Trace (Negative); Nitrite,Urine Negative (Negative); PH, Urine 5.5 (5.0-8.0); Protein,Urine Negative (Negative); RBC,Urine 2 /hpf (0-5); Specific Gravity,Urine 1.012 (1.001-1.035); Squamous Epithelial Cell,Urine <1 /hpf (0-4); Urobilinogen,Urine <2.0 mg/dL (<2.0); WBC,Urine 4 /hpf (0-5)
[2019-01-01] MEDS ORDERED: ACETAMINOPHEN TAB 500 MG TAB PO STA (03:17)
[2019-01-01] MEDS: PIPERACILLIN-TAZOBACTAM 3.375 GM in SODIUM CHLORIDE 0.9% 100 ML IVPB SCH ×3 (04:54→15:41)
[2019-01-01 07:31] LABS: Glucose,Whole Blood 113 mg/dL (75-99)
[2019-01-01 07:43] VITALS: BMI 81.3
[2019-01-01] MEDS: FAMOTIDINE 20 MG/2 ML VIAL IV SCH ×2 (10:15→20:11)
[2019-01-01] MEDS: HEPARIN SODIUM,PORCINE 5,000 UNIT/ML 1 ML VIAL SQ SCH ×2 (10:15→20:11)
--- NOTE | 2019-01-01 10:30 | P.NPCON ---
History of Present Illness - Reason for Consult acute renal failure - History of Present Illness Reason for consultation: Acute kidney injury History of present illness: Patient is a 78-year-old female seen in renal consultation for acute kidney injury. Patient's creatinine on admission was 2.49. In October 2018 her creatinine was as low as 1.64 and had peaked at 2.29 during that admission. Patient presented to the hospital with weakness in her lower extremities. Patient states she didn't fall but did have to sit right back down when she stood up. No loss of consciousness. No vomiting or diarrhea. Oral intake has been fair. Denies chest pain or shortness of breath. No edema. Denies use of nonsteroidals. Denies hematuria or dysuria. Denies family history of renal disease. UA was noted to be benign. Ultrasound from October 2018 revealed atrophic right kidney. She was taking diuretics at home which are currently held. No fever or chills. Hemodynamically stable although blood pressures are somewhat on the lower side this morning. Vital signs are stable. General: The patient appeared well nourished and normally developed. HEENT: Head exam is unremarkable. Neck is without jugular venous distension. LUNGS: Lungs are clear to auscultation and percussion. Breath sounds decreased. HEART: Rate and Rhythm are regular. First and second heart sounds normal. No murmurs, rubs or gallops. ABDOMEN: Abdominal exam reveals normal bowel sounds. Non-tender and non- distended. No evidence of peritonitis. EXTREMITITES: No clubbing, cyanosis, or edema. Past Medical History Past Medical History: Heart Failure, Diabetes Mellitus, Hyperlipidemia, Hype rtension, Osteoarthritis (OA) Additional Past Medical History / Comment(s): IDDM type II, pt currently at [facility] for rehab History of Any Multi-Drug Resistant Organisms: MRSA Date of last positivie culture/infection: 11/18/18 MDRO Source:: URINE MRSA Past Surgical History: Section, Cholecystectomy Additional Past Surgical History / Comment(s): Bilateral cataract removals/lens implants. Past Anesthesia/Blood Transfusion Reactions: No Reported Reaction Additional Past Anesthesia/Blood Transfusion Reaction / Comment(s): Pt recieved blood in past without reaction (after childbirth) Past Psychological History: Anxiety Smoking Status: Never smoker Past Alcohol Use History: None Reported Past Drug Use History: None Reported - Past Family History Father Additional Family Medical History / Comment(s): Father from an industrial exposure at the age of 42 yrs. Mother Family Medical History: No Reported History Additional Family Medical History / Comment(s): Mother lived to be 95 yrs old. Medications and Allergies Home Medications Medication Instructions Recorded Confirmed Type FLUoxetine HCL [PROzac] 40 mg PO DAILY 10/18/18 12/31/18 History Metoprolol Tartrate [Lopressor] 50 mg PO BID 10/18/18 12/31/18 History Oxybutynin Chloride [Ditropan] 5 mg PO BID 10/18/18 12/31/18 History Pregabalin [Lyrica] 75 mg PO BID #6 cap 10/24/18 12/31/18 Rx Acetaminophen Tab [Tylenol] 650 mg PO Q4H PRN 11/01/18 12/31/18 History Calcium Carb-Vit D 500Mg-200Un 1 tab PO TID-W/MEALS 11/18/18 12/31/18 History [Oscal 500+D] Cyanocobalamin [Vitamin B-12] 500 mcg PO DAILY 11/18/18 12/31/18 History Ipratropium-Albuterol Nebulize 3 ml INHALATION RT-TID PRN 11/18/18 12/31/18 History [Duoneb 0.5 mg-3 mg/3 ml Soln] INSULIN ASPART (NovoLOG) [NovoLOG 0 unit SQ ACHS vial 11/21/18 12/31/18 Rx (formulary)] Furosemide [Lasix] 20 mg PO BID 12/31/18 12/31/18 History Potassium Chloride [K-Tab ER] 10 meq PO DAILY 12/31/18 12/31/18 History Allergies Allergy/AdvReac Type Severity Reaction Status Date / Time codeine AdvReac Nausea & Verified 12/31/18 22:53 Vomiting Physical Exam Vitals: Vital Signs Temp Pulse Resp BP Pulse Ox 01/01/19 06:17 98.1 F 59 L 16 104/56 100 01/01/19 04:51 97.7 F 59 L 14 103/50 98 01/01/19 03:40 98.3 F 57 L 14 100/47 97 01/01/19 01:00 65 15 128/64 98 12/31/18 22:37 70 15 141/80 95 12/31/18 22:17 97.7 F 73 18 144/67 96 Intake and Output 12/31/18 01/01/19 01/01/19 22:59 06:59 14:59 Other: Weight 90.718 kg Results - Lab Results Most recent lab results Calcium 9.6 mg/dL (8.4-10.2) 12/31/18 22:30 12/31/18 22:30 12/31/18 22:30 Assessment and Plan Plan: Assessment: 1. Acute kidney injury mostly prerenal secondary to diuresis and hypotension. Creatinine 2.49 on admission. UA is benign. No hydronephrosis noted on ultrasound from October 2018. 2. Rule out chronic kidney disease. Creatinine was in the range of 1.6-1.8 in October 2018. 3. Atrophic right kidney. 4. Anemia. Rule out iron deficiency. 5. Lactic acidosis secondary to hypotension. Improved with IV fluids. Plan: Start normal saline at 50 mL an hour. Hold diuretics. Follow-up cultures. Check iron studies. Repeat electrolytes in the morning. Thank you for the consultation. I will continue to follow the patient with you during her hospital stay.
[2019-01-01] MEDS ORDERED: IPRATROPIUM-ALBUTEROL 3 ML NEB INHALATION PRN (10:35)
--- NOTE | 2019-01-01 10:38 | P.HPIM ---
History of Present Illness H&P Date: 01/01/19 Chief Complaint: Sepsis, severe weakness of the lower extremity, Alter mental status, acute 78-year-old female one of Dr. Sanchez's patient with past medical history of CAD, CHF, COPD and recurrent UTI and sepsis was the hospital last in early November for UTI infection was treated and end up going to [facility] on leg for repeat of time has been back home doing well continue to have problem with heart failure fluid retention and shortness of breath on and off the left have significant weakness of the lower extremity not been able to put any weight or pressure not been able to ambulate and walk with severe generalized weakness ended up coming to [facility] department shortly before midnight on 518 where was seen and evaluated surprisingly her lactic acid is elevated white blood cell were up troponin was elevated as well and she had much worsening kidney function with prerenal picture. Patient was started on hydration IV antibiotic with Zosyn culture was done and admitted to the hospital for the above problem. Apparently patient has been on antibiotic even the last few days with amoxicillin for UTI was diagnosed as an outpatient culture is not available at this point which might affect the way however culture which showed this time to despite patient being sick and septic her culture might still come back negative. Patient is otherwise hemodynamically stable blood pressure fluctuating slightly bit not very low and she is mild tachycardic with mildly elevated troponin. Review of Systems CONSTITUTIONAL: Well-developed no acute respiratory distress. EYES: No icterus sclerae, no conjunctivitis. EARS, NOSE, MOUTH, THROAT, and FACE: No sore throat, lymphadenopathy, carotid bruits or deformity. RESPIRATORY: Positive dyspnea and shortness of breath. CARDIOVASCULAR: Positive PND orthopnea palpitations no angina GASTROINTESTINAL: No Abd pain, Nausea or vomiting, no Diarrhea or constipation, No GI Bleed, no distention or masses. GENITOURINARY: Recurrent to my tract infection with burning discomfort and frequency with no sign of kidney stone recently worsening kidney function. INTEGUMENT/BREAST: Negative for any muscular injury with mild osteoarthritis.. HEMATOLOGIC/LYMPHATIC: Negative for bleed or purpura. MUSCULOSKELTAL: Negative for Myalgia or arthralgia. NEURLOGICAL: Mild dizziness lightheadedness and mental status change. BEHAVIORAL/PSYCH: Negative. ENDOCRINE: Negative. Past Medical History Past Medical History: Heart Failure, Diabetes Mellitus, Hyperlipidemia, Hyperten anna, Osteoarthritis (OA) Additional Past Medical History / Comment(s): Previously at [facility] for rehab about 6-8 weeks ago History of Any Multi-Drug Resistant Organisms: MRSA Date of last positivie culture/infection: 11/18/18 MDRO Source:: URINE MRSA Past Surgical History: Section, Cholecystectomy Additional Past Surgical History / Comment(s): Bilateral cataract removals/lens implants, wrist surgery Past Anesthesia/Blood Transfusion Reactions: No Reported Reaction Additional Past Anesthesia/Blood Transfusion Reaction / Comment(s): Pt recieved blood in past without reaction (after childbirth) Past Psychological History: Anxiety Additional Psychological History / Comment(s): Pt resides at home with her son, rohith in [facility]. 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 Smoking Status: Former smoker Past Alcohol Use History: None Reported Past Drug Use History: None Reported - Past Family History Father Additional Family Medical History / Comment(s): Father from an industrial exposure at the age of 42 yrs. Mother Family Medical History: No Reported History Additional Family Medical History / Comment(s): Mother lived to be 95 yrs old. Medications and Allergies Home Medications Medication Instructions Recorded Confirmed Type FLUoxetine HCL [PROzac] 40 mg PO DAILY 10/18/18 12/31/18 History Metoprolol Tartrate [Lopressor] 50 mg PO BID 10/18/18 12/31/18 History Oxybutynin Chloride [Ditropan] 5 mg PO BID 10/18/18 12/31/18 History Pregabalin [Lyrica] 75 mg PO BID #6 cap 10/24/18 12/31/18 Rx Acetaminophen Tab [Tylenol] 650 mg PO Q4H PRN 11/01/18 12/31/18 History Calcium Carb-Vit D 500Mg-200Un 1 tab PO TID-W/MEALS 11/18/18 12/31/18 History [Oscal 500+D] Cyanocobalamin [Vitamin B-12] 500 mcg PO DAILY 11/18/18 12/31/18 History Ipratropium-Albuterol Nebulize 3 ml INHALATION RT-TID PRN 11/18/18 12/31/18 History [Duoneb 0.5 mg-3 mg/3 ml Soln] INSULIN ASPART (NovoLOG) [NovoLOG 0 unit SQ ACHS vial 11/21/18 12/31/18 Rx (formulary)] Furosemide [Lasix] 20 mg PO BID 12/31/18 12/31/18 History Potassium Chloride [K-Tab ER] 10 meq PO DAILY 12/31/18 12/31/18 History Allergies Allergy/AdvReac Type Severity Reaction Status Date / Time codeine AdvReac Nausea & Verified 12/31/18 22:53 Vomiting Physical Exam Vitals: Vital Signs Temp Pulse Resp BP Pulse Ox 01/01/19 06:17 98.1 F 59 L 16 104/56 100 01/01/19 04:51 97.7 F 59 L 14 103/50 98 01/01/19 03:40 98.3 F 57 L 14 100/47 97 01/01/19 01:00 65 15 128/64 98 12/31/18 22:37 70 15 141/80 95 12/31/18 22:17 97.7 F 73 18 144/67 96 Intake and Output 12/31/18 01/01/19 01/01/19 22:59 06:59 14:59 Other: Weight 90.718 kg General Appearance: Alert, cooperative, no distress, appears stated age. Neck HEENT: Supple, no lymphadenopathy, no thyroid enlargement, no carotid bruits. Lungs: Decreased breath sound bilaterally with fine rhonchi with mild expiratory wheezes. Chest Wall: Chest wall normal expansion with deep inspiration no tenderness and no deformity was found on exam, no costochondral pain or discomfort. Heart: Irregular rate and rhythm, S1, S2 positive S3 positive JVD. Back: Symmetric, no curvature, ROM normal, no CVA tenderness. Abdomen: Soft no sign of organomegaly or ascites with positive slight discomfort and lower abdominal region area in the flank area bilaterally. Extremities: Extremities normal, atraumatic, no cyanosis or edema. Pulses: 2+ and symmetric. Skin: Skin color, texture, tugor normal, no rashes or lesions. Neurologic: Alert oriented x3 cranial nerves II through XII intact, no motor deficit, no abnormal balance or gait. Results CBC & Chem 7: 01/02/19 07:30 01/02/19 07:30 Labs: Abnormal Lab Results - Last 24 Hours (Table) 12/31/18 12/31/18 12/31/18 Range/Units 22:30 22:30 22:30 WBC 14.8 H (3.8-10.6) k/uL RBC 3.64 L (3.80-5.40) m/uL Hgb 9.5 L D (11.4-16.0) gm/dL Hct 31.2 L (34.0-46.0) % MCHC 30.3 L (31.0-37.0) g/dL RDW 15.7 H (11.5-15.5) % Neutrophils # 10.9 H (1.3-7.7) k/uL BUN 57 H (7-17) mg/dL Creatinine 2.49 H (0.52-1.04) mg/dL Glucose 189 H (74-99) mg/dL POC Glucose (mg/dL) (75-99) mg/dL Plasma Lactic Acid Jeff 2.2 H* (0.7-2.0) mmol/L Troponin I (0.000-0.034) ng/mL Ur Leukocyte Esterase (Negative) Urine Bacteria (None) /hpf 12/31/18 12/31/18 01/01/19 Range/Units 22:30 23:07 00:26 WBC (3.8-10.6) k/uL RBC (3.80-5.40) m/uL Hgb (11.4-16.0) gm/dL Hct (34.0-46.0) % MCHC (31.0-37.0) g/dL RDW (11.5-15.5) % Neutrophils # (1.3-7.7) k/uL BUN (7-17) mg/dL Creatinine (0.52-1.04) mg/dL Glucose (74-99) mg/dL POC Glucose (mg/dL) 180 H (75-99) mg/dL Plasma Lactic Acid Jeff (0.7-2.0) mmol/L Troponin I 0.064 H* (0.000-0.034) ng/mL Ur Leukocyte Esterase Trace H (Negative) Urine Bacteria Rare H (None) /hpf 01/01/19 Range/Units 07:16 WBC (3.8-10.6) k/uL RBC (3.80-5.40) m/uL Hgb (11.4-16.0) gm/dL Hct (34.0-46.0) % MCHC (31.0-37.0) g/dL RDW (11.5-15.5) % Neutrophils # (1.3-7.7) k/uL BUN (7-17) mg/dL Creatinine (0.52-1.04) mg/dL Glucose (74-99) mg/dL POC Glucose (mg/dL) 113 H (75-99) mg/dL Plasma Lactic Acid Jeff (0.7-2.0) mmol/L Troponin I (0.000-0.034) ng/mL Ur Leukocyte Esterase (Negative) Urine Bacteria (None) /hpf Thrombosis Risk Factor Assmnt - DVT/VTE Prophylaxis DVT/VTE Prophylaxis: Pharmacologic Prophylaxis ordered, Mechanical Prophylaxis ordered - Choose All That Apply Each Factor Represents 1 point: Heart failure (<1month), Obesity (BMI >25) Other Risk Factors: No Other congenital or acquired thrombophilia - If yes, enter type in comment: No Thrombosis Risk Factor Assessment Total Risk Factor Score: 2 Thrombosis Risk Factor Assessment Level: Low Risk Assessment and Plan Plan: 1 sepsis: Most likely from urinary tract infection not well treated, culture might remain negative because of the oral antibiotics taking as an outpatient but the clinical picture with elevated d-dimer tachycardia mild hypoxia elevated white blood cell and worsening kidney function sepsis and infection. Continue Zosyn consult infectious disease and try to finalize an antibiotic to be use either IV or oral for 10 days. 2 acute kidney injury and acute kidney failure: Most likely from dehydration and prerenal related to the infection, patient will be seen nephrology renal ultrasound be done continue gentle hydration repeat BUN/creatinine daily basis. 3 elevated troponin: With possible acute kidney injury no sign of CO repeat another troponin at this point. 4 congestive heart failure: Mostly systolic dysfunction, remain on furosemide and can benefit from smaller dose of metoprolol along with possible need for hydralazine and isosorbide. 5 COPD: Patient will be on updraft treatment. 6 chronic depression: Has been on Prozac continue medication. 7 chronic pain management: Patient remain on Tylenol and Lyrica. 8 type 2 diabetes: Not in any regular insulin patient will be on Accu-Chek with sliding scale continue to watch for hyperglycemia repeat A1c if needed. 9 GI prophylaxis: Patient be on Pepcid. 10 DVT prophylaxis: Patient was started on heparin subcutaneous. CODE STATUS: Full code. Admit patient to inpatient status for more than 2 nights.
[2019-01-01 12:03] LABS: Glucose,Whole Blood 147 mg/dL (75-99)
[2019-01-01] MEDS: CALCIUM CARB-VIT D 500MG-200UN 1 EACH TAB PO SCH ×2 (13:27→17:23)
[2019-01-01] MEDS: SODIUM CHLORIDE 0.9% 1,000 ML IV SCH (15:41)
--- NOTE | 2019-01-01 16:57 | P.CONS ---
History of Present Illness - Reason for Consult Consult date: 01/01/19 - Chief Complaint weakness - History of Present Illness 78-year-old female presents to Hospital from her care setting of a primary residence where her family help take care of her. Patient relates that she's not been feeling well for quite some time but has been managing quite well in the home setting. She relates that she try to make a meatloaf and she became suddenly quite weak her legs weekend and she simply collapsed to the floor. She with that she did not fall she simply just sat down and could not get up. Her family called EMS and she was brought to hospital. The patient relates that she feels tired but is not having discomfort in her chest. She's denying chest pain. She denying new shortness of breath cough or sputum production. She is denying abdominal pain. She has chronic urinary tract infection symptoms, currently is having some frequency and some flank pain but it is not severe. Review of Systems HEENT patient denies sinus her mouth discomfort. No dysphagia. No oral pain. No neck stiffness or lymphadenopathy Lungs patient denies shortness of breath cough or sputum production no hemoptysis Heart patient denies chest pain or pressure. He is not having dyspnea on exertion, orthopnea, or syncope Abdomen patient denies abdominal pain, denies nausea vomiting constipation or diarrhea. Denies hematemesis melena or hematochezia Extremities patient denies pain or swelling to the upper extremities. Patient as per the history of present illness has difficulties with the ulcerations to the bilateral heels but does not have ongoing difficulties with edema Neuro patient denies dizziness or syncope just became weak and sat onto the floor Past Medical History Past Medical History: Heart Failure, Diabetes Mellitus, Hyperlipidemia, Hypertension, Osteoarthritis (OA) Additional Past Medical History / Comment(s): Previously at [facility] for rehab ab out 6-8 weeks ago History of Any Multi-Drug Resistant Organisms: MRSA Year Discovered:: 11/18/18 MDRO Source:: URINE MRSA Past Surgical History: Section, Cholecystectomy Additional Past Surgical History / Comment(s): Bilateral cataract removals/lens implants, wrist surgery Past Anesthesia/Blood Transfusion Reactions: No Reported Reaction Additional Past Anesthesia/Blood Transfusion Reaction / Comm: Pt recieved blood in past without reaction (after childbirth) Past Psychological History: Anxiety Additional Psychological History / Comment(s): Pt resides at home with her son, rohith in law and [place]. 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 Smoking Status: Former smoker Past Alcohol Use History: None Reported Past Drug Use History: None Reported - Past Family History Father Additional Family Medical History / Comment(s): Father from an industrial exposure at the age of 42 yrs. Mother Family Medical History: No Reported History Additional Family Medical History / Comment(s): Mother lived to be 95 yrs old. Medications and Allergies Home Medications and Allergies Comment(s): Current Medications Acetaminophen (Tylenol Tab) 650 mg PO Q4H PRN PRN Reason: MILD Pain Albuterol/Ipratropium (Duoneb 0.5 Mg-3 Mg/3 Ml Soln) 3 ml INHALATION RT-TID PRN PRN Reason: Shortness Of Breath Calcium Carbonate (Oscal 500+D) 1 each PO TID-W/MEALS [facility] Last Admin: 01/01/19 13:27 Dose: 1 each Documented by: Cyanocobalamin (Vitamin B-12) 500 mcg PO DAILY [facility] Famotidine (Pepcid) 20 mg IV BID [facility] Last Admin: 01/01/19 10:15 Dose: 20 mg Documented by: Fluoxetine HCl (Prozac) 40 mg PO DAILY [facility] Heparin Sodium (Porcine) (Heparin) 5,000 unit SQ Q12HR [facility] Last Admin: 01/01/19 10:15 Dose: Not Given Documented by: Piperacillin Sod/Tazobactam (Sod 3.375 gm/ Sodium Chloride) 100 mls @ 25 mls/hr IVPB Q8HR [facility] Last Admin: 01/01/19 15:41 Dose: 25 mls/hr Documented by: Sodium Chloride (Saline 0.9%) 1,000 mls @ 50 mls/hr IV .Q20H [facility] Last Admin: 01/01/19 15:41 Dose: 50 mls/hr Documented by: Metoprolol Tartrate (Lopressor) 50 mg PO BID [facility] Oxybutynin Chloride (Ditropan) 5 mg PO BID [facility] Potassium Chloride (K-Dur 10) 10 meq PO DAILY [facility] Pregabalin (Lyrica) 75 mg PO BID [facility] Home Medications Medication Instructions Recorded Confirmed Type FLUoxetine HCL [PROzac] 40 mg PO DAILY 10/18/18 12/31/18 History Metoprolol Tartrate [Lopressor] 50 mg PO BID 10/18/18 12/31/18 History Oxybutynin Chloride [Ditropan] 5 mg PO BID 10/18/18 12/31/18 History Pregabalin [Lyrica] 75 mg PO BID #6 cap 10/24/18 12/31/18 Rx Acetaminophen Tab [Tylenol] 650 mg PO Q4H PRN 11/01/18 12/31/18 History Calcium Carb-Vit D 500Mg-200Un 1 tab PO TID-W/MEALS 11/18/18 12/31/18 History [Oscal 500+D] Cyanocobalamin [Vitamin B-12] 500 mcg PO DAILY 11/18/18 12/31/18 History Ipratropium-Albuterol Nebulize 3 ml INHALATION RT-TID PRN 11/18/18 12/31/18 History [Duoneb 0.5 mg-3 mg/3 ml Soln] INSULIN ASPART (NovoLOG) [NovoLOG 0 unit SQ ACHS vial 11/21/18 12/31/18 Rx (formulary)] Furosemide [Lasix] 20 mg PO BID 12/31/18 12/31/18 History Potassium Chloride [K-Tab ER] 10 meq PO DAILY 12/31/18 12/31/18 History Allergies Allergy/AdvReac Type Severity Reaction Status Date / Time codeine AdvReac Nausea & Verified 12/31/18 22:53 Vomiting Physical Exam Vitals: Vital Signs Temp Pulse Pulse Resp BP BP Pulse Ox 01/01/19 16:00 63 16 01/01/19 14:28 97.8 F 63 16 93/61 99 01/01/19 06:17 98.1 F 59 L 16 104/56 100 01/01/19 04:51 97.7 F 59 L 14 103/50 98 01/01/19 03:40 98.3 F 57 L 14 100/47 97 01/01/19 01:00 65 15 128/64 98 12/31/18 22:37 70 15 141/80 95 12/31/18 22:17 97.7 F 73 18 144/67 96 Intake and Output 01/01/19 01/01/19 01/01/19 06:59 14:59 22:59 Intake Total 800 540 Output Total 50 Balance 800 490 Intake: IV 400 Sodium Chloride 0.9% 1, 400 000 ml @ 50 mls/hr IV . Q20H [facility] Rx#:[id number] Intake, IV Titration 400 Amount Sodium Chloride 0.9% 1, 400 000 ml @ 50 mls/hr IV . Q20H [facility] Rx#:[id number] Oral 540 Output: Urine 50 Other: # Voids 2 HEENT: Anicteric, conjunctiva are pink and moist, nasal or oral mucosa are without lesion. The neck is supple without lymphadenopathy or thyromegaly. No oral thrush is noted. Lungs: good bilateral air entry, there are no significant crackles or wheezes, no bronchial sounds or egophony. Heart: Regular rate and rhythm with an audible S1-S2, no S3 or S4 noted. No significant murmur click or rub noted. Abdomen: Positive bowel sounds, soft and nontender, there is no palpable masses or organomegaly. Abdomen is without guarding or rebound. Extremities:Upper extremities reveal evidence of equal pulses, no lesions are seen, no petechiae or telangiectasia. The lower extremities have no significant edema, peripheral pulses were 2+ and symmetric, no lesions or ulcerations are seen. Capillary refill was brisk. Skin: Intact without significant rash or lesions. Neuro:Awake and alert, oriented to person place and time. No gross focal sensory motor deficits noted. Musculoskeletal: Patient is ambulatory No acute joint effusions are noted. Lymph: No cervical, supraclavicular, axillary, epitrochlear, or inguinal lymphadenopathy was noted. Results CBC & Chem 7: 12/31/18 22:30 12/31/18 22:30 Labs: Abnormal Lab Results - Last 24 Hours (Table) 12/31/18 12/31/18 12/31/18 Range/Units 22:30 22:30 22:30 WBC 14.8 H (3.8-10.6) k/uL RBC 3.64 L (3.80-5.40) m/uL Hgb 9.5 L D (11.4-16.0) gm/dL Hct 31.2 L (34.0-46.0) % MCHC 30.3 L (31.0-37.0) g/dL RDW 15.7 H (11.5-15.5) % Neutrophils # 10.9 H (1.3-7.7) k/uL BUN 57 H (7-17) mg/dL Creatinine 2.49 H (0.52-1.04) mg/dL Glucose 189 H (74-99) mg/dL POC Glucose (mg/dL) (75-99) mg/dL Plasma Lactic Acid Jeff 2.2 H* (0.7-2.0) mmol/L Troponin I (0.000-0.034) ng/mL Ur Leukocyte Esterase (Negative) Urine Bacteria (None) /hpf 12/31/18 12/31/18 01/01/19 Range/Units 22:30 23:07 00:26 WBC (3.8-10.6) k/uL RBC (3.80-5.40) m/uL Hgb (11.4-16.0) gm/dL Hct (34.0-46.0) % MCHC (31.0-37.0) g/dL RDW (11.5-15.5) % Neutrophils # (1.3-7.7) k/uL BUN (7-17) mg/dL Creatinine (0.52-1.04) mg/dL Glucose (74-99) mg/dL POC Glucose (mg/dL) 180 H (75-99) mg/dL Plasma Lactic Acid Jeff (0.7-2.0) mmol/L Troponin I 0.064 H* (0.000-0.034) ng/mL Ur Leukocyte Esterase Trace H (Negative) Urine Bacteria Rare H (None) /hpf 01/01/19 01/01/19 01/01/19 Range/Units 07:16 10:30 11:47 WBC (3.8-10.6) k/uL RBC (3.80-5.40) m/uL Hgb (11.4-16.0) gm/dL Hct (34.0-46.0) % MCHC (31.0-37.0) g/dL RDW (11.5-15.5) % Neutrophils # (1.3-7.7) k/uL BUN (7-17) mg/dL Creatinine (0.52-1.04) mg/dL Glucose (74-99) mg/dL POC Glucose (mg/dL) 113 H 147 H (75-99) mg/dL Plasma Lactic Acid Jeff (0.7-2.0) mmol/L Troponin I 1.200 H* (0.000-0.034) ng/mL Ur Leukocyte Esterase (Negative) Urine Bacteria (None) /hpf Laboratory Results WBC 14.8 k/uL (3.8-10.6) H 12/31/18 22:30 RBC 3.64 m/uL (3.80-5.40) L 12/31/18 22:30 Hgb 9.5 gm/dL (11.4-16.0) L D 12/31/18 22:30 Hct 31.2 % (34.0-46.0) L 12/31/18 22:30 MCV 85.7 fL (80.0-100.0) 12/31/18: MCH 26.0 pg (25.0-35.0) 12/31/18: MCHC 30.3 g/dL (31.0-37.0) L 12/31/18:30 RDW 15.7 % (11.5-15.5) H 12/31/18:30 Plt Count 277 k/uL (150-450) 12/31/18 22:30 Neutrophils % 74 % 12/31/18 22:30 Lymphocytes % 17 % 12/31/18: Monocytes % 6 % 12/31/18: Eosinophils % 2 % 12/31/18: Basophils % 0 % 12/31/18:30 Neutrophils # 10.9 k/uL (1.3-7.7) H 12/31/18 22:30 Lymphocytes # 2.5 k/uL (1.0-4.8) 12/31/18: Monocytes # 0.8 k/uL (0-1.0) 12/31/18: Eosinophils # 0.2 k/uL (0-0.7) 12/31/18: Basophils # 0.1 k/uL (0-0.2) 12/31/18:30 Hypochromasia Slight 12/31/18:30 PT 10.4 sec (9.0-12.0) 12/31/18:30 INR 1.0 (<1.2) 12/31/18: APTT 22.2 sec (22.0-30.0) 05/18/19 22:30 Sodium 137 mmol/L (137-145) 12/31/18 22:30 Potassium 4.4 mmol/L (3.5-5.1) 12/31/18 22:30 Chloride 104 mmol/L (98-107) 12/31/18 22:30 Carbon Dioxide 22 mmol/L (22-30) 12/31/18 22:30 Anion Gap 11 mmol/L 12/31/18 22:30 BUN 57 mg/dL (7-17) H 12/31/18 22:30 Creatinine 2.49 mg/dL (0.52-1.04) H 12/31/18 22:30 Est GFR (CKD-EPI)AfAm 21 (>60 ml/min/1.73 sqM) 12/31/18 22:30 Est GFR (CKD-EPI)NonAf 18 (>60 ml/min/1.73 sqM) 12/31/18 22:30 Glucose 189 mg/dL (74-99) H 12/31/18 22:30 POC Glucose (mg/dL) 147 mg/dL (75-99) H 01/01/19 11:47 POC Glu Bo[employer] Room Helper ID Carolina Martinez 01/01/19 11:47 Lactic Ac Sepsis Rflx Y 12/31/18 23:33 Plasma Lactic Acid Jeff 1.0 mmol/L (0.7-2.0) 01/01/19 03:14 Calcium 9.6 mg/dL (8.4-10.2) 12/31/18 22:30 Total Bilirubin 0.8 mg/dL (0.2-1.3) 12/31/18 22:30 AST 21 U/L (14-36) 12/31/18 22:30 ALT 11 U/L (9-52) 12/31/18 22:30 Alkaline Phosphatase 107 U/L (38-126) 12/31/18 22:30 Troponin I 1.200 ng/mL (0.000-0.034) H* 01/01/19 10:30 Total Protein 6.9 g/dL (6.3-8.2) 12/31/18 22:30 Albumin 3.6 g/dL (3.5-5.0) 12/31/18 22:30 Urine Color Light Yellow 01/01/19 00:26 Urine Appearance Clear (Clear) 01/01/19 00:26 Urine pH 5.5 (5.0-8.0) 01/01/19 00:26 Ur Specific Leslie 1.012 (1.001-1.035) 01/01/19 00:26 Urine Protein Negative (Negative) 01/01/19 00:26 Urine Glucose (UA) Negative (Negative) 01/01/19 00:26 Urine Ketones Negative (Negative) 01/01/19 00: Urine Blood Negative (Negative) 01/01/19 00: Urine Nitrite Negative (Negative) 01/01/19 00: Urine Bilirubin Negative (Negative) 01/01/19 00:26 Urine Urobilinogen <2.0 mg/dL (<2.0) 01/01/19 00:26 Ur Leukocyte Esterase Trace (Negative) H 01/01/19 00:26 Urine RBC 2 /hpf (0-5) 01/01/19 00:26 Urine WBC 4 /hpf (0-5) 01/01/19 00:26 Ur Squamous Epith Cells <1 /hpf (0-4) 01/01/19 00:26 Urine Bacteria Rare /hpf (None) H 01/01/19 00:26 most recent urine culture with MRSA Chest x-ray: image reviewed (mild volume overload without infiltrate) Assessment and Plan (1) Elevated troponin I measurement Current Visit: Yes Status: Acute Code(s): R74.8 - ABNORMAL LEVELS OF OTHER SERUM ENZYMES SNOMED Code(s): 591862201 (2) ARF (acute renal failure) Current Visit: No Status: Acute Code(s): N17.9 - ACUTE KIDNEY FAILURE, UNSPECIFIED SNOMED Code(s): 99999074 (3) Weakness Current Visit: Yes Status: Acute Code(s): R53.1 - WEAKNESS SNOMED Code(s): 32120291 (4) UTI (urinary tract infection) Narrative/Plan: 78-year-old female presents to Hospital feeling poorly in that she became weak and sat onto the floor and could not get up. She simply was brought to hospital with concerns to her weakness. Chest x-ray reveals evidence of no pneumonia, urinalysis is not markedly abnormal the patient has recently been treated with antibiotic therapy. She's had a recent urinary culture with evidence of MRSA. At this time metabolic therapy will be transition to daptomycin given her acute renal failure would not want to his vancomycin at this time. She does not appear to have pneumonia and the Zosyn may be discontinued. She does have evidence of increasing troponins and may be underlying cardiac event as the etiology of the current symptoms. leukocytosis multifactorial including the concerns to underlying infection and stress related to an acute cardiac event. Current Visit: No Status: Acute Code(s): N39.0 - URINARY TRACT INFECTION, SITE NOT SPECIFIED SNOMED Code(s): 09156793
[2019-01-01 17:10] LABS: Glucose,Whole Blood 174 mg/dL (75-99)
[2019-01-01] MEDS: ACETAMINOPHEN TAB 325 MG TAB PO PRN ×2 (17:24→21:54)
[2019-01-01] MEDS: DAPTOmycin 500 MG in SODIUM CHLORIDE 0.9% 50 ML IVPB SCH (17:24)
[2019-01-01] MEDS: METOPROLOL TARTRATE 50 MG TAB PO SCH (20:11)
[2019-01-01] MEDS: OXYBUTYNIN CHLORIDE 5 MG TAB PO SCH (20:11)
[2019-01-01] MEDS: PREGABALIN 75 MG CAP PO SCH (20:11)
[2019-01-01 20:43] LABS: Glucose,Whole Blood 202 mg/dL (75-99)
[2019-01-01] MEDS: INSULIN ASPART (NovoLOG) 100 UNIT/ML VIAL SQ SCH (20:55)
[2019-01-02] MEDS: ACETAMINOPHEN TAB 325 MG TAB PO PRN (02:00)
[2019-01-02 06:05] LABS: Glucose,Whole Blood 142 mg/dL (75-99)
[2019-01-02] MEDS: CALCIUM CARB-VIT D 500MG-200UN 1 EACH TAB PO SCH ×3 (06:33→17:01)
[2019-01-02] MEDS: SODIUM CHLORIDE 0.9% 1,000 ML IV SCH (06:33)
[2019-01-02] MEDS: INSULIN ASPART (NovoLOG) 100 UNIT/ML VIAL SQ SCH ×4 (06:33→21:06)
[2019-01-02 08:11] LABS: Calcium 8.9 mg/dL (8.4-10.2); Potassium 4.3 mmol/L (3.5-5.1); Total Bilirubin 0.4 mg/dL (0.2-1.3); Total Protein 6.2 g/dL (6.3-8.2)
[2019-01-02 08:14] LABS: Basophils % (A) 0 %; Eosinophils # (A) 0.1 k/uL (0-0.7); Eosinophils % (A) 1 %; HCT 28.8 % (34.0-46.0); HGB 8.5 gm/dL (11.4-16.0); Hypochromasia Marked; Lymphocytes # (A) 2.4 k/uL (1.0-4.8); Lymphocytes % (A) 22 %; MCH 26.2 pg (25.0-35.0); MCHC 29.5 g/dL (31.0-37.0); Mean Platelet Volume 8.9; Monocytes # (A) 0.7 k/uL (0-1.0); Monocytes % (A) 6 %; Neutrophils # (A) 7.5 k/uL (1.3-7.7); Neutrophils % (A) 70 %; Platelet Count 207 k/uL (150-450); RBC 3.24 m/uL (3.80-5.40); RDW 15.7 % (11.5-15.5); WBC 10.7 k/uL (3.8-10.6)
--- NOTE | 2019-01-02 09:15 | P.CRDCN ---
History of Present Illness Consult date: 01/02/19 Requesting physician: Kalia Aggarwal Reason for Consult (text): Abnormal troponin Chief complaint: Severe weakness, sepsis History of present illness: This is a pleasant 78-year-old female with known history of hypertension, hyperlipidemia, diabetes, COPD, recurrent UTI with sepsis, most recently in November of this year she was admitted to the hospital with UTI and sepsis and went to [facility] for rehab following her admission to the hospital. She presents to the hospital on this admission with significant weakness, she states that her knees gave out on her and she went down to the floor, she did not pass out, no evidence of any syncope. Patient denies any recent shortness of breath, no chest discomfort. Chest x-ray performed on arrival here showed mild vascular congestion with no pleural effusion or consolidation. There is a 9 mm nodule in the right lower lobe and an 8 mm nodule in the left lower lobe, CT recommended. Initial EKG on presentation here showed a normal sinus rhythm with a first-degree AV block, subsequent EKG showed sinus bradycardia with nonspecific ST-T wave changes noted in the anterior lateral leads. According to the patient, there is been a recent loss and the family, and arrangements are being made, she's been under significant amount of stress. Blood pressure on arrival here 140/60 with a heart rate in the 70s, 96% on 3 L of oxygen. Blood pressure this morning 124/70 with a heart rate in the 70s, 95% on 2 L of oxygen. White blood cell count 14.8 on admission, 10.7 this morning, hemoglobin 9.5 on admission, 8.5 this morning, platelet count 207. Sodium 139, potassium 4.3, BUN on admission 57 with a creatinine of 2.4, 43 and 1.9 this morning. Plasma lactic acid 2.2 on admission. Troponin 0.064, 1.2, 1.1. Because of the abnormality in troponin, a cardiology consultation has been requested. At the time of my examination this morning, patient just had an episode of vomiting, still continues to be mildly nauseated. Upon review of admission in November, it appears at that time that the patient was in atrial fibrillation, this admission there is no documented A. fib, she remains in sinus at this time. Past Medical History Past Medical History: Heart Failure, Diabetes Mellitus, Hyperlipidemia, Hypertension, Osteoarthritis (OA) Additional Past Medical History / Comment(s): Previously at [facility] for rehab about 6-8 weeks ago History of Any Multi-Drug Resistant Organisms: MRSA Date of last positivie culture/infection: 11/18/18 MDRO Source:: URINE MRSA Past Surgical History: Section, Cholecystectomy Additional Past Surgical History / Comment(s): Bilateral cataract removals/lens implants, wrist surgery Past Anesthesia/Blood Transfusion Reactions: No Reported Reaction Additional Past Anesthesia/Blood Transfusion Reaction / Comment(s): Pt recieved blood in past without reaction (after childbirth) Past Psychological History: Anxiety Additional Psychological History / Comment(s): Pt resides at home with her son, [place]. 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 Smoking Status: Former smoker Past Alcohol Use History: None Reported Past Drug Use History: None Reported - Past Family History Father Additional Family Medical History / Comment(s): Father from an industrial exposure at the age of 42 yrs. Mother Family Medical History: No Reported History Additional Family Medical History / Comment(s): Mother lived to be 95 yrs old. Medications and Allergies Home Medications Medication Instructions Recorded Confirmed Type FLUoxetine HCL [PROzac] 40 mg PO DAILY 10/18/18 12/31/18 History Metoprolol Tartrate [Lopressor] 50 mg PO BID 10/18/18 12/31/18 History Oxybutynin Chloride [Ditropan] 5 mg PO BID 10/18/18 12/31/18 History Pregabalin [Lyrica] 75 mg PO BID #6 cap 10/24/18 12/31/18 Rx Acetaminophen Tab [Tylenol] 650 mg PO Q4H PRN 11/01/18 12/31/18 History Calcium Carb-Vit D 500Mg-200Un 1 tab PO TID-W/MEALS 11/18/18 12/31/18 History [Oscal 500+D] Cyanocobalamin [Vitamin B-12] 500 mcg PO DAILY 11/18/18 12/31/18 History Ipratropium-Albuterol Nebulize 3 ml INHALATION RT-TID PRN 11/18/18 12/31/18 History [Duoneb 0.5 mg-3 mg/3 ml Soln] INSULIN ASPART (NovoLOG) [NovoLOG 0 unit SQ ACHS vial 11/21/18 12/31/18 Rx (formulary)] Furosemide [Lasix] 20 mg PO BID 12/31/18 12/31/18 History Potassium Chloride [K-Tab ER] 10 meq PO DAILY 12/31/18 12/31/18 History Allergies Allergy/AdvReac Type Severity Reaction Status Date / Time codeine AdvReac Nausea & Verified 12/31/18 22:53 Vomiting Physical Exam Vitals: Vital Signs Temp Pulse Resp BP Pulse Ox 01/02/19 03:19 73 18 01/02/19 03:16 97.6 F 73 18 124/73 95 01/01/19 23:29 61 16 01/01/19 23:27 98.0 F 61 16 101/54 98 01/01/19 20:00 97.8 F 72 18 108/54 94 L 01/01/19 16:00 63 16 01/01/19 14:28 97.8 F 63 16 93/61 99 Intake and Output 01/01/19 01/02/19 01/02/19 22:59 06:59 14:59 Intake Total 570 0 Output Total 50 400 Balance 520 -400 0 Intake: Oral 570 0 Output: Urine 50 400 Other: Voiding Method Diaper Diaper # Voids 1 # Bowel Movements 1 Weight 90 kg PHYSICAL EXAMINATION: GENERAL: 78-year-old female in no acute distress at the time of my examination HEENT: Head is atraumatic, normocephalic. Pupils equal, round. Sclera anicteric. Conjunctiva are clear. Mucous membranes of the mouth are moist. Neck is supple. There is no elevated jugular venous pressure. No carotid bruit is heard. HEART EXAMINATION: Heart S1 and S2 systolic murmur is heard. CHEST EXAMINATION: Lungs reveal fine expiratory wheezing throughout. ABDOMEN: Soft, nontender. Bowel sounds are heard. No organomegaly noted. EXTREMITIES: 2+ peripheral pulses with no evidence of peripheral edema and no calf tenderness noted. NEUROLOGIC patient is awake, alert and oriented 2 . . Results 01/02/19 07:30 01/02/19 07:30 Cardiac Enzymes 01/01/19 01/01/19 01/02/19 Range/Units 10:30 17:50 07:30 AST 29 (14-36) U/L Troponin I 1.200 H* 1.100 H* (0.000-0.034) ng/mL CBC 01/02/19 Range/Units 07:30 WBC 10.7 H (3.8-10.6) k/uL RBC 3.24 L (3.80-5.40) m/uL Hgb 8.5 L (11.4-16.0) gm/dL Hct 28.8 L (34.0-46.0) % Plt Count 207 (150-450) k/uL Comprehensive Metabolic Panel 01/02/19 Range/Units 07:30 Sodium 139 (137-145) mmol/L Potassium 4.3 (3.5-5.1) mmol/L Chloride 111 H (98-107) mmol/L Carbon Dioxide 20 L (22-30) mmol/L BUN 43 H (7-17) mg/dL Creatinine 1.94 H (0.52-1.04) mg/dL Glucose 127 H (74-99) mg/dL Calcium 8.9 (8.4-10.2) mg/dL AST 29 (14-36) U/L ALT 17 (9-52) U/L Alkaline Phosphatase 89 (38-126) U/L Total Protein 6.2 L (6.3-8.2) g/dL Albumin 3.0 L (3.5-5.0) g/dL Current Medications Generic Name Dose Route Start Last Admin Trade Name Freq PRN Reason Stop Dose Admin Acetaminophen 650 mg 01/01/19 10:35 01/02/19 02:00 Tylenol Tab PO 650 mg Q4H PRN Administration MILD Pain Albuterol/Ipratropium 3 ml 01/01/19 10:35 Duoneb 0.5 Mg-3 Mg/3 Ml Soln INHALATION RT-TID PRN Shortness Of Breath Calcium Carbonate 1 each 01/01/19 12:30 01/02/19 06:33 Oscal 500+D PO 1 each TID-W/MEALS STEPHANIE Administration Cyanocobalamin 500 mcg 01/02/19 09:00 Vitamin B-12 PO DAILY STEPHANIE Famotidine 20 mg 01/01/19 09:00 01/01/19 20:11 Pepcid IV 20 mg BID STEPHANIE Administration Fluoxetine HCl 40 mg 01/02/19 09:00 Prozac PO DAILY STEPHANIE Heparin Sodium (Porcine) 5,000 unit 01/01/19 09:30 01/01/19 20:11 Heparin SQ 5,000 unit Q12HR STEPHANIE Administration Sodium Chloride 1,000 mls @ 50 mls/hr 01/01/19 10:30 01/02/19 06:33 Saline 0.9% IV 50 mls/hr .Q20H STEPHANIE Administration Daptomycin 500 mg/ Sodium 50 mls @ 100 mls/hr 01/01/19 18:00 01/01/19 17:24 Chloride IVPB 100 mls/hr Q48H STEPHANIE Administration Protocol Insulin Aspart 0 unit 01/01/19 21:00 01/02/19 06:33 Novolog SQ 1 unit ACHS STEPHANIE Administration Protocol Metoprolol Tartrate 50 mg 01/01/19 21:00 01/01/19 20:11 Lopressor PO 50 mg BID STEPHANIE Administration Oxybutynin Chloride 5 mg 01/01/19 21:00 01/01/19 20:11 Ditropan PO 5 mg BID STEPHANIE Administration Potassium Chloride 10 meq 01/02/19 09:00 K-Dur 10 PO DAILY STEPHANIE Pregabalin 75 mg 01/01/19 21:00 01/01/19 20:11 Lyrica PO 75 mg BID STEPHANIE Administration Intake and Output 01/01/19 01/02/19 01/02/19 22:59 06:59 14:59 Intake Total 570 0 Output Total 50 400 Balance 520 -400 0 Intake: Oral 570 0 Output: Urine 50 400 Other: Voiding Method Diaper Diaper # Voids 1 # Bowel Movements 1 Weight 90 kg 01/02/19 07:30 01/02/19 07:30 EKG Interpretations (text) EKG shows a sinus bradycardia with first-degree AV block. Assessment and Plan Plan: Assessment and plan #1 sepsis, likely from a UTI, lactic acid on admission 2.2 #2 acute on chronic kidney failure #3 diabetes #4 hypertension #5 hyperlipidemia #6 abnormal troponin, could be secondary to abnormal renal function and sepsis, cannot completely rule out underlying coronary artery disease in a patient with multiple risk factors. Issue EKG shows sinus bradycardia, subsequent EKG shows a sinus bradycardia with anterior lateral ST-T wave changes. EKG in November does show some mild changes in the anterior lateral leads as well. #7 chronic anemia #8 paroxysmal atrial fibrillation, patient was noted to have atrial fibrillation on her admission to hospital in November, she was admitted with sepsis at that time. She continues to be in normal sinus rhythm now Plan We will obtain an echocardiogram with Doppler study. Initiate a small dose of a statin, as the patient is a known diabetic, we will also start the patient on a baby aspirin. If the echocardiogram with Doppler study shows any significant abnormalities, patient may need further evaluation to rule out underlying coronary artery disease. As an outpatient, we will recommend patient wear a mon itor, if she has any further episodes of atrial fibrillation, she will also require anticoagulation for stroke prevention. Further recommendations to follow. DNP note has been reviewed, I agree with a documented findings and plan of care. Patient was seen and examined.
[2019-01-02] MEDS: CYANOCOBALAMIN 500 MCG TAB PO SCH (09:38)
[2019-01-02] MEDS: FLUoxetine HCL 20 MG CAP PO SCH (09:38)
[2019-01-02] MEDS: PREGABALIN 75 MG CAP PO SCH ×2 (09:39→21:06)
[2019-01-02] MEDS: POTASSIUM CHLORIDE ER 10 MEQ TAB.ER.PRT PO SCH (09:39)
[2019-01-02] MEDS: OXYBUTYNIN CHLORIDE 5 MG TAB PO SCH ×2 (09:39→21:06)
[2019-01-02] MEDS: METOPROLOL TARTRATE 50 MG TAB PO SCH ×2 (09:39→21:06)
[2019-01-02] MEDS: FAMOTIDINE 20 MG/2 ML VIAL IV SCH ×2 (09:41→21:05)
[2019-01-02] MEDS: HEPARIN SODIUM,PORCINE 5,000 UNIT/ML 1 ML VIAL SQ SCH ×2 (09:43→21:05)
--- NOTE | 2019-01-02 10:11 | P.PN ---
Subjective Patient is seen in follow-up for acute kidney injury. Renal function is improving with creatinine down to 1.94 today. Denies chest pain or shortness of breath. No edema. Good urine output. Hemodynamically stable. Vital signs are stable. General: The patient appeared well nourished and normally developed. HEENT: Head exam is unremarkable. Neck is without jugular venous distension. LUNGS: Lungs are clear to auscultation and percussion. Breath sounds decreased. HEART: Rate and Rhythm are regular. First and second heart sounds normal. No m urmurs, rubs or gallops. ABDOMEN: Abdominal exam reveals normal bowel sounds. Non-tender and non-di stended. No evidence of peritonitis. EXTREMITITES: No clubbing, cyanosis, or edema. Objective - Vital Signs Vital signs: Vital Signs Temp 97.6 F 01/02/19 03:16 Pulse 73 01/02/19 03:19 Resp 18 01/02/19 03:19 BP 124/73 01/02/19 03:16 Pulse Ox 95 01/02/19 03:16 Intake & Output 01/01/19 01/02/19 01/02/19 18:59 06:59 18:59 Intake Total 1370 0 Output Total 50 400 Balance 1320 -400 0 Weight 90 kg Intake: IV 400 Sodium Chloride 0.9% 1, 400 000 ml @ 50 mls/hr IV . Q20H STEPHANIE Rx#:[id number] Intake, IV Titration 400 Amount Sodium Chloride 0.9% 1, 400 000 ml @ 50 mls/hr IV . Q20H STEPHANIE Rx#:[id number] Oral 570 0 Output: Urine 50 400 Other: Voiding Method Diaper # Voids 1 # Bowel Movements 1 - Labs CBC & Chem 7: 01/02/19 07:30 01/02/19 07:30 Labs: Abnormal Lab Results - Last 24 Hours (Table) 01/01/19 01/01/19 01/01/19 Range/Units 10:30 11:47 16:53 WBC (3.8-10.6) k/uL RBC (3.80-5.40) m/uL Hgb (11.4-16.0) gm/dL Hct (34.0-46.0) % MCHC (31.0-37.0) g/dL RDW (11.5-15.5) % Chloride (98-107) mmol/L Carbon Dioxide (22-30) mmol/L BUN (7-17) mg/dL Creatinine (0.52-1.04) mg/dL Glucose (74-99) mg/dL POC Glucose (mg/dL) 147 H 174 H (75-99) mg/dL Troponin I 1.200 H* (0.000-0.034) ng/mL Total Protein (6.3-8.2) g/dL Albumin (3.5-5.0) g/dL 01/01/19 01/01/19 01/02/19 Range/Units 17:50 20:37 06:03 WBC (3.8-10.6) k/uL RBC (3.80-5.40) m/uL Hgb (11.4-16.0) gm/dL Hct (34.0-46.0) % MCHC (31.0-37.0) g/dL RDW (11.5-15.5) % Chloride (98-107) mmol/L Carbon Dioxide (22-30) mmol/L BUN (7-17) mg/dL Creatinine (0.52-1.04) mg/dL Glucose (74-99) mg/dL POC Glucose (mg/dL) 202 H 142 H (75-99) mg/dL Troponin I 1.100 H* (0.000-0.034) ng/mL Total Protein (6.3-8.2) g/dL Albumin (3.5-5.0) g/dL 01/02/19 01/02/19 Range/Units 07:30 07:30 WBC 10.7 H (3.8-10.6) k/uL RBC 3.24 L (3.80-5.40) m/uL Hgb 8.5 L (11.4-16.0) gm/dL Hct 28.8 L (34.0-46.0) % MCHC 29.5 L (31.0-37.0) g/dL RDW 15.7 H (11.5-15.5) % Chloride 111 H (98-107) mmol/L Carbon Dioxide 20 L (22-30) mmol/L BUN 43 H (7-17) mg/dL Creatinine 1.94 H (0.52-1.04) mg/dL Glucose 127 H (74-99) mg/dL POC Glucose (mg/dL) (75-99) mg/dL Troponin I (0.000-0.034) ng/mL Total Protein 6.2 L (6.3-8.2) g/dL Albumin 3.0 L (3.5-5.0) g/dL Microbiology - Last 24 Hours (Table) 01/01/19 03:14 Blood Culture - Preliminary Blood No Growth after 24 hours Assessment and Plan Plan: Assessment: 1. Acute kidney injury mostly prerenal secondary to diuresis and hypotension. Creatinine 2.49 on admission and down to 1.94 today. UA is benign. No hydronephrosis noted on ultrasound from October 2018. 2. Rule out chronic kidney disease. Creatinine was in the range of 1.6-1.8 in October 2018. 3. Atrophic right kidney. 4. Anemia. Rule out iron deficiency. 5. Lactic acidosis secondary to hypotension. Improved with IV fluids. Plan: Maintain normal saline at 50 mL an hour. Hold diuretics. Follow-up cultures. Follow-up iron studies. Repeat electrolytes in the morning.
[2019-01-02] MEDS ORDERED: ONDANSETRON 4 MG TAB PO PRN (11:27)
[2019-01-02 11:28] LABS: Iron Saturation 8.28 (12.00-45.00)
[2019-01-02 11:52] LABS: Glucose,Whole Blood 161 mg/dL (75-99); Glucose,Whole Blood 31 mg/dL (75-99)
[2019-01-02] MEDS ORDERED: ASPIRIN 81 MG ONE (12:10)
[2019-01-02] MEDS: ASPIRIN 81 MG PO SCH (12:17)
--- NOTE | 2019-01-02 12:42 | ECHOF ---
Referral Reason:abn trop MEASUREMENTS -------- HEIGHT: 152.4 cm WEIGHT: 89.8 kg BP: 124/73 RVIDd: 3.5 cm (< 3.3) IVSd: 1.3 cm (0.6 - 1.1) LVIDd: 4.0 cm (3.9 - 5.3) LVPWd: 1.2 cm (0.6 - 1.1) IVSs: 1.4 cm LVIDs: 3.7 cm LVPWs: 1.8 cm LA Diam: 3.9 cm (2.7 - 3.8) LAESV Index (A-L): 31.34 ml/m Ao Diam: 3.1 cm (2.0 - 3.7) AV Cusp: 2.0 cm (1.5 - 2.6) MV EXCURSION: 9.761 mm (> 18.000) MV EF SLOPE: 11 mm/s (70 - 150) EPSS: 1.9 cm MV E Robby: 0.93 m/s MV DecT: 216 ms MV A Robby: 0.87 m/s MV E/A Ratio: 1.07 RAP: 15.00 mmHg RVSP: 52.94 mmHg FINDINGS -------- Sinus rhythm. This was a technically adequate study. The left ventricular size is normal. There is mild concentric left ventricular hypertrophy. Overa ll left ventricular systolic function is severely impaired with, an EF < 20%. Only basal jacob cont ract The right ventricle is mildly enlarged. LA is midly dilated 29-33ml/m2. The right atrium is normal in size. Interatrial and interventricular septum intact. There is mild aortic valve sclerosis. The mitral valve leaflets are mildly thickened. Moderate mitral annular calcification present. Mi ld mitral regurgitation is present. Mild tricuspid regurgitation present. There is moderate pulmonary hypertension. The right ventric ular systolic pressure, as measured by Doppler, is 52.94mmHg. Trace/mild (physiologic) pulmonic regurgitation. The aortic root size is normal. The inferior vena cava is dilated with poor inspiratory collapse which is consistent with estimated r ight atrial pressure of 15 mmHg. There is no pericardial effusion. CONCLUSIONS -------- 1. Sinus rhythm. 2. This was a technically adequate study. 3. The left ventricular size is normal. 4. There is mild concentric left ventricular hypertrophy. 5. Overall left ventricular systolic function is severely impaired with, an EF < 20%. 6. Only basal jacob contract 7. The right ventricle is mildly enlarged. 8. LA is midly dilated 29-33ml/m2. 9. The right atrium is normal in size. 10. Interatrial and interventricular septum intact. 11. There is mild aortic valve sclerosis. 12. The mitral valve leaflets are mildly thickened. 13. Moderate mitral annular calcification present. 14. Mild mitral regurgitation is present. 15. Mild tricuspid regurgitation present. 16. There is moderate pulmonary hypertension. 17. The right ventricular systolic pressure, as measured by Doppler, is 52.94mmHg. 18. Trace/mild (physiologic) pulmonic regurgitation. 19. The aortic root size is normal. 20. The inferior vena cava is dilated with poor inspiratory collapse which is consistent with estimat ed right atrial pressure of 15 mmHg. 21. possible takostubo syndrome. [employer]ING [employer]IE [employer]KER: Jackie Sarabia RDCS
--- NOTE | 2019-01-02 13:14 | P.PN ---
Subjective Progress Note Date: 01/02/19 Principal diagnosis: Sepsis, severe weakness of the lower extremity, Alter mental status, possible acute coronary syndrome, elevated troponin, 78-year-old female one of Dr. Sanchez's patient with past medical history of CAD, CHF, COPD and recurrent UTI and sepsis was the hospital last in early November for UTI infection was treated and end up going to [facility] on leg for repeat of time has been back home doing well continue to have problem with heart failure fluid retention and shortness of breath on and off the left have significant weakness of the lower extremity not been able to put any weight or pressure not been able to ambulate and walk with severe generalized weakness ended up coming to the emergency department shortly before midnight on 12/31 where was seen and evaluated surprisingly her lactic acid is elevated white blood cell were up troponin was elevated as well and she had much worsening kidney function with prerenal picture. Patient was started on hydration IV antibiotic with Zosyn culture was done and admitted to the hospital for the above problem. Apparently patient has been on antibiotic even the last few days with amoxicillin for UTI was diagnosed as an outpatient culture is not available at this point which might affect the way however culture which showed this time to despite patient being sick and septic her culture might still come back negative. Patient is otherwise hemodynamically stable blood pressure fluctuating slightly bit not very low and she is mild tachycardic with mildly elevated troponin. Patient was seen cardiology and transfer after his second troponin to the cardiac floor troponin was mildly elevated, and apparently review her EKG was slightly bit different from before. Patient eventually would need to go for heart cath when she is more stable medically she continued to have mild arrhythmia otherwise stable hemodynamically doing better. Will ask delinquency prevention social worker to help patient with either home care or group home rehab and advance PTOT gradually. Objective - Vital Signs Vital signs: Vital Signs Temp 97.6 F 01/02/19 03:16 Pulse 73 01/02/19 03:19 Resp 18 01/02/19 03:19 BP 124/73 01/02/19 03:16 Pulse Ox 95 01/02/19 03:16 Intake & Output 01/01/19 01/02/19 01/02/19 18:59 06:59 18:59 Intake Total 1370 0 Output Total 50 400 450 Balance 1320 -400 -450 Weight 90 kg Intake: IV 400 Sodium Chloride 0.9% 1, 400 000 ml @ 50 mls/hr IV . Q20H STEPHANIE Rx#:[id number] Intake, IV Titration 400 Amount Sodium Chloride 0.9% 1, 400 000 ml @ 50 mls/hr IV . Q20H STEPHANIE Rx#:[id number] Oral 570 0 Output: Urine 50 400 450 Other: Voiding Method Diaper # Voids 1 # Bowel Movements 1 - Constitutional Constitutional Comment(s): Review of Systems CONSTITUTIONAL: Well-developed no acute respiratory distress. EYES: No icterus sclerae, no conjunctivitis. EARS, NOSE, MOUTH, THROAT, and FACE: No sore throat, lymphadenopathy, carotid bruits or deformity. RESPIRATORY: Positive dyspnea and shortness of breath. CARDIOVASCULAR: Positive PND orthopnea palpitations no angina GASTROINTESTINAL: No Abd pain, Nausea or vomiting, no Diarrhea or constipation, No GI Bleed, no distention or masses. GENITOURINARY: Recurrent to my tract infection with burning discomfort and frequency with no sign of kidney stone recently worsening kidney function. INTEGUMENT/BREAST: Negative for any muscular injury with mild osteoarthritis.. HEMATOLOGIC/LYMPHATIC: Negative for bleed or purpura. MUSCULOSKELTAL: Negative for Myalgia or arthralgia. NEURLOGICAL: Mild dizziness lightheadedness and mental status change. BEHAVIORAL/PSYCH: Negative. ENDOCRINE: Negative. Physical Exam General Appearance: Alert, cooperative, no distress, appears stated age. Neck HEENT: Supple, no lymphadenopathy, no thyroid enlargement, no carotid bruits. Lungs: Decreased breath sound bilaterally with fine rhonchi with mild expiratory wheezes. Chest Wall: Chest wall normal expansion with deep inspiration no tenderness and no deformity was found on exam, no costochondral pain or discomfort. Heart: Irregular rate and rhythm, S1, S2 positive S3 positive JVD. Back: Symmetric, no curvature, ROM normal, no CVA tenderness. Abdomen: Soft no sign of organomegaly or ascites with positive slight discomfort and lower abdominal region area in the flank area bilaterally. Extremities: Extremities normal, atraumatic, no cyanosis or edema. Pulses: 2+ and symmetric. Skin: Skin color, texture, tugor normal, no rashes or lesions. Neurologic: Alert oriented x3 cranial nerves II through XII intact, no motor de ficit, no abnormal balance or gait. - Labs CBC & Chem 7: 01/02/19 07:30 01/02/19 07:30 Labs: Abnormal Lab Results - Last 24 Hours (Table) 12/31/18 01/01/19 01/01/19 Range/Units 22:30 16:53 17:50 WBC (3.8-10.6) k/uL RBC (3.80-5.40) m/uL Hgb (11.4-16.0) gm/dL Hct (34.0-46.0) % MCHC (31.0-37.0) g/dL RDW (11.5-15.5) % Chloride (98-107) mmol/L Carbon Dioxide (22-30) mmol/L BUN (7-17) mg/dL Creatinine (0.52-1.04) mg/dL Glucose (74-99) mg/dL POC Glucose (mg/dL) 174 H (75-99) mg/dL Iron 28 L (50-170) ug/dL Iron Saturation 8.28 L (12.00-45.00) Troponin I 1.100 H* (0.000-0.034) ng/mL Total Protein (6.3-8.2) g/dL Albumin (3.5-5.0) g/dL 01/01/19 01/02/19 01/02/19 Range/Units 20:37 06:03 07:30 WBC 10.7 H (3.8-10.6) k/uL RBC 3.24 L (3.80-5.40) m/uL Hgb 8.5 L (11.4-16.0) gm/dL Hct 28.8 L (34.0-46.0) % MCHC 29.5 L (31.0-37.0) g/dL RDW 15.7 H (11.5-15.5) % Chloride (98-107) mmol/L Carbon Dioxide (22-30) mmol/L BUN (7-17) mg/dL Creatinine (0.52-1.04) mg/dL Glucose (74-99) mg/dL POC Glucose (mg/dL) 202 H 142 H (75-99) mg/dL Iron (50-170) ug/dL Iron Saturation (12.00-45.00) Troponin I (0.000-0.034) ng/mL Total Protein (6.3-8.2) g/dL Albumin (3.5-5.0) g/dL 01/02/19 01/02/19 01/02/19 Range/Units 07:30 11:34 11:34 WBC (3.8-10.6) k/uL RBC (3.80-5.40) m/uL Hgb (11.4-16.0) gm/dL Hct (34.0-46.0) % MCHC (31.0-37.0) g/dL RDW (11.5-15.5) % Chloride 111 H (98-107) mmol/L Carbon Dioxide 20 L (22-30) mmol/L BUN 43 H (7-17) mg/dL Creatinine 1.94 H (0.52-1.04) mg/dL Glucose 127 H (74-99) mg/dL POC Glucose (mg/dL) 31 L 161 H (75-99) mg/dL Iron (50-170) ug/dL Iron Saturation (12.00-45.00) Troponin I (0.000-0.034) ng/mL Total Protein 6.2 L (6.3-8.2) g/dL Albumin 3.0 L (3.5-5.0) g/dL Microbiology - Last 24 Hours (Table) 01/01/19 03:14 Blood Culture - Preliminary Blood No Growth after 24 hours Assessment and Plan Plan: 1 sepsis: Most likely from urinary tract infection not well treated, patient was seen infectious disease and switch to daptomycin doing well with it so far. 2 acute kidney injury and acute kidney failure: Most likely from dehydration and prerenal related to the infection, patient will be seen nephrology renal ultrasound be done continue gentle hydration repeat BUN/creatinine daily basis. 3 elevated troponin: With possible acute kidney injury no sign of DE repeat another troponin at this point. With the change in EKG along with elevated troponin patient eventually new go for heart cath when she is more stable medically. 4 congestive heart failure: Mostly systolic dysfunction, remain on furosemide and can benefit from smaller dose of metoprolol along with possible need for hydralazine and isosorbide. 5 COPD: Patient will be on updraft treatment. 6 chronic depression: Has been on Prozac continue medication. 7 chronic pain management: Patient remain on Tylenol and Lyrica. 8 type 2 diabetes: Not in any regular insulin patient will be on Accu-Chek with sliding scale continue to watch for hyperglycemia repeat A1c if needed. Discharge planning possibly discharge home in 48 hours.
[2019-01-02 16:46] LABS: Glucose,Whole Blood 122 mg/dL (75-99)
[2019-01-02 20:30] LABS: Glucose,Whole Blood 220 mg/dL (75-99)
[2019-01-02] MEDS: ATORVASTATIN 20 MG TAB PO SCH (21:05)
--- NOTE | 2019-01-02 23:02 | P.PN ---
Subjective Progress Note Date: 01/02/19 78-year-old female presents to Hospital from her care setting of a primary residence where her family help take care of her. Patient relates that she's not been feeling well for quite some time but has been managing quite well in the home setting. She relates that she try to make a meatloaf and she became suddenly quite weak her legs weekend and she simply collapsed to the floor. She with that she did not fall she simply just sat down and could not get up. Her family called EMS and she was brought to hospital. The patient relates that she feels tired but is not having discomfort in her chest. She's denying chest pain. She denying new shortness of breath cough or sputum production. She is denying abdominal pain. She has chronic urinary tract infection symptoms, currently is having some frequency and some flank pain but it is not severe. 01/02/2019 patient relates that she is starting to feel somewhat better today. With hydration and antibiotic therapy her strength is improved. She relates that with assistance she had up to the bathroom today. Denies fever or chills. Weakness is slightly improved. Objective - Vital Signs Vital signs: Vital Signs Temp 98.2 F 01/02/19 15:05 Pulse 57 L 01/02/19 15:05 Resp 16 01/02/19 15:05 BP 117/56 01/02/19 15:05 Pulse Ox 97 01/02/19 15:05 Intake & Output 01/02/19 01/02/19 01/03/19 06:59 18:59 06:59 Intake Total 886 Output Total 400 450 Balance -400 436 Weight 90 kg Intake: IV 500 Sodium Chloride 0.9% 1, 500 000 ml @ 50 mls/hr IV . Q20H [facility] Rx#:[id number] Oral 386 Output: Urine 400 450 Other: Voiding Method Diaper Bedpan Diaper # Voids 1 - Exam HEENT: Anicteric, conjunctiva are pink and moist, nasal or oral mucosa are without lesion. The neck is supple without lymphadenopathy or thyromegaly. No oral thrush is noted. Lungs: good bilateral air entry, there are no significant crackles or wheezes, no bronchial sounds or egophony. Heart: Regular rate and rhythm with an audible S1-S2, no S3 or S4 noted. No significant murmur click or rub noted. Abdomen: Positive bowel sounds, soft and nontender, there is no palpable masses or organomegaly. Abdomen is without guarding or rebound. Extremities:Upper extremities reveal evidence of equal pulses, no lesions are seen, no petechiae or telangiectasia. The lower extremities have no significant edema, peripheral pulses were 2+ and symmetric, no lesions or ulcerations are seen. Capillary refill was brisk. Skin: Intact without significant rash or lesions. Neuro:Awake and alert, oriented to person place and time. No gross focal sensory motor deficits noted. Musculoskeletal: Patient is ambulatory No acute joint effusions are noted. Lymph: No cervical, supraclavicular, axillary, epitrochlear, or inguinal lymphadenopathy was noted. - Labs CBC & Chem 7: 01/02/19 07:30 01/02/19 07:30 Labs: Abnormal Lab Results - Last 24 Hours (Table) 12/31/18 01/02/19 01/02/19 Range/Units 22:30 06:03 07:30 WBC 10.7 H (3.8-10.6) k/uL RBC 3.24 L (3.80-5.40) m/uL Hgb 8.5 L (11.4-16.0) gm/dL Hct 28.8 L (34.0-46.0) % MCHC 29.5 L (31.0-37.0) g/dL RDW 15.7 H (11.5-15.5) % Chloride (98-107) mmol/L Carbon Dioxide (22-30) mmol/L BUN (7-17) mg/dL Creatinine (0.52-1.04) mg/dL Glucose (74-99) mg/dL POC Glucose (mg/dL) 142 H (75-99) mg/dL Iron 28 L (50-170) ug/dL Iron Saturation 8.28 L (12.00-45.00) Total Protein (6.3-8.2) g/dL Albumin (3.5-5.0) g/dL 01/02/19 01/02/19 01/02/19 Range/Units 07:30 11:34 11:34 WBC (3.8-10.6) k/uL RBC (3.80-5.40) m/uL Hgb (11.4-16.0) gm/dL Hct (34.0-46.0) % MCHC (31.0-37.0) g/dL RDW (11.5-15.5) % Chloride 111 H (98-107) mmol/L Carbon Dioxide 20 L (22-30) mmol/L BUN 43 H (7-17) mg/dL Creatinine 1.94 H (0.52-1.04) mg/dL Glucose 127 H (74-99) mg/dL POC Glucose (mg/dL) 31 L 161 H (75-99) mg/dL Iron (50-170) ug/dL Iron Saturation (12.00-45.00) Total Protein 6.2 L (6.3-8.2) g/dL Albumin 3.0 L (3.5-5.0) g/dL 01/02/19 01/02/19 Range/Units 16:33 20:29 WBC (3.8-10.6) k/uL RBC (3.80-5.40) m/uL Hgb (11.4-16.0) gm/dL Hct (34.0-46.0) % MCHC (31.0-37.0) g/dL RDW (11.5-15.5) % Chloride (98-107) mmol/L Carbon Dioxide (22-30) mmol/L BUN (7-17) mg/dL Creatinine (0.52-1.04) mg/dL Glucose (74-99) mg/dL POC Glucose (mg/dL) 122 H 220 H (75-99) mg/dL Iron (50-170) ug/dL Iron Saturation (12.00-45.00) Total Protein (6.3-8.2) g/dL Albumin (3.5-5.0) g/dL Microbiology - Last 24 Hours (Table) 01/01/19 03:14 Blood Culture - Preliminary Blood No Growth after 24 hours Laboratory Results WBC 10.7 k/uL (3.8-10.6) H 01/02/19 07:30 RBC 3.24 m/uL (3.80-5.40) L 01/02/19 07:30 Hgb 8.5 gm/dL (11.4-16.0) L 01/02/19 07:30 Hct 28.8 % (34.0-46.0) L 01/02/19 07:30 MCV 89.0 fL (80.0-100.0) 01/02/19 07:30 MCH 26.2 pg (25.0-35.0) 01/02/19 07:30 MCHC 29.5 g/dL (31.0-37.0) L 01/02/19 07:30 RDW 15.7 % (11.5-15.5) H 01/02/19 07:30 Plt Count 207 k/uL (150-450) 01/02/19 07:30 Neutrophils % 70 % 01/02/19 07:30 Lymphocytes % 22 % 01/02/19 07:30 Monocytes % 6 % 01/02/19 07:30 Eosinophils % 1 % 01/02/19 07:30 Basophils % 0 % 01/02/19 07:30 Neutrophils # 7.5 k/uL (1.3-7.7) 01/02/19 07:30 Lymphocytes # 2.4 k/uL (1.0-4.8) 01/02/19 07:30 Monocytes # 0.7 k/uL (0-1.0) 01/02/19 07:30 Eosinophils # 0.1 k/uL (0-0.7) 01/02/19 07:30 Basophils # 0.0 k/uL (0-0.2) 01/02/19 07:30 Hypochromasia Marked 01/02/19 07:30 PT 10.4 sec (9.0-12.0) 12/31/18 22:30 INR 1.0 (<1.2) 12/31/18 22:30 APTT 22.2 sec (22.0-30.0) 12/31/18 22:30 Sodium 139 mmol/L (137-145) 01/02/19 07:30 Potassium 4.3 mmol/L (3.5-5.1) 01/02/19 07:30 Chloride 111 mmol/L (98-107) H 01/02/19 07:30 Carbon Dioxide 20 mmol/L (22-30) L 01/02/19 07:30 Anion Gap 8 mmol/L 01/02/19 07:30 BUN 43 mg/dL (7-17) H 01/02/19 07:30 Creatinine 1.94 mg/dL (0.52-1.04) H 01/02/19 07:30 Est GFR (CKD-EPI)AfAm 28 (>60 ml/min/1.73 sqM) 01/02/19 07:30 Est GFR (CKD-EPI)NonAf 24 (>60 ml/min/1.73 sqM) 01/02/19 07:30 Glucose 127 mg/dL (74-99) H 01/02/19 07:30 POC Glucose (mg/dL) 220 mg/dL (75-99) H 01/02/19 20:29 POC Glu Senior [employer] ID Aniya Heck 01/02/19 20:29 Lactic Ac Sepsis Rflx Y 12/31/18 23:33 Plasma Lactic Acid Jeff 1.0 mmol/L (0.7-2.0) 01/01/19 03:14 Calcium 8.9 mg/dL (8.4-10.2) 01/02/19 07:30 Iron 28 ug/dL (50-170) L 12/31/18 22:30 TIBC 338 ug/dL (228-460) 12/31/18 22:30 Iron Saturation 8.28 (12.00-45.00) L 12/31/18 22:30 Ferritin 28.1 ng/mL (10.0-291.0) 12/31/18 22:30 Total Bilirubin 0.4 mg/dL (0.2-1.3) 01/02/19 07:30 AST 29 U/L (14-36) 01/02/19 07:30 ALT 17 U/L (9-52) 01/02/19 07:30 Alkaline Phosphatase 89 U/L (38-126) 01/02/19 07:30 Troponin I 1.100 ng/mL (0.000-0.034) H* 01/01/19 17:50 Total Protein 6.2 g/dL (6.3-8.2) L 01/02/19 07:30 Albumin 3.0 g/dL (3.5-5.0) L 01/02/19 07:30 Urine Color Light Yellow 01/01/19 00:26 Urine Appearance Clear (Clear) 01/01/19 00:26 Urine pH 5.5 (5.0-8.0) 01/01/19 00:26 Ur Specific [place] 1.012 (1.001-1.035) 01/01/19 00:26 Urine Protein Negative (Negative) 01/01/19 00:26 Urine Glucose (UA) Negative (Negative) 01/01/19 00:26 Urine Ketones Negative (Negative) 01/01/19 00:26 Urine Blood Negative (Negative) 01/01/19 00:26 Urine Nitrite Negative (Negative) 01/01/19 00:26 Urine Bilirubin Negative (Negative) 01/01/19 00:26 Urine Urobilinogen <2.0 mg/dL (<2.0) 01/01/19 00:26 Ur Leukocyte Esterase Trace (Negative) H 01/01/19 00:26 Urine RBC 2 /hpf (0-5) 01/01/19 00:26 Urine WBC 4 /hpf (0-5) 01/01/19 00:26 Ur Squamous Epith Cells <1 /hpf (0-4) 01/01/19 00:26 Urine Bacteria Rare /hpf (None) H 01/01/19 00:26 Microbiology 01/01/19 03:14 Blood Blood Culture - Preliminary No Growth after 24 hours Assessment and Plan (1) Elevated troponin I measurement Current Visit: Yes Status: Acute Code(s): R74.8 - ABNORMAL LEVELS OF OTHER SERUM ENZYMES SNOMED Code(s): 963123071 (2) ARF (acute renal failure) Current Visit: No Status: Acute Code(s): N17.9 - ACUTE KIDNEY FAILURE, UNSPECIFIED SNOMED Code(s): 88189692 (3) Weakness Current Visit: Yes Status: Acute Code(s): R53.1 - WEAKNESS SNOMED Code(s): 78045132 (4) UTI (urinary tract infection) Narrative/Plan: 78-year-old female presents to Hospital feeling poorly in that she became weak and sat onto the floor and could not get up. She simply was brought to hospital with concerns to her weakness. Chest x-ray reveals evidence of no pneumonia, urinalysis is not markedly abnormal the patient has recently been treated with antibiotic therapy. She's had a recent urinary culture with evidence of MRSA. At this time metabolic therapy will be transition to daptomycin given her acute renal failure would not want to his vancomycin at this time. She does not appear to have pneumonia and the Zosyn may be discontinued. She does have evidence of increasing troponins and may be underlying cardiac event as the etiology of the current symptoms. leukocytosis multifactorial including the concerns to underlying infection and stress related to an acute cardiac event. Patient is doing better today. Follow-up cultures are pending. Most recent urine culture had MRSA and consequently antibiotic therapy was altered to daptomycin, avoiding vancomycin therapy given her acute renal failure. Leukocytosis is starting to improve and she does feel better today. Continue current antibiotic for now and will hopefully transition to oral when she is improved and ready for discharge to home. Current Visit: No Status: Acute Code(s): N39.0 - URINARY TRACT INFECTION, SITE NOT SPECIFIED SNOMED Code(s): 15558685
[2019-01-03 06:05] LABS: Glucose,Whole Blood 107 mg/dL (75-99)
[2019-01-03] MEDS: INSULIN ASPART (NovoLOG) 100 UNIT/ML VIAL SQ SCH ×4 (06:27→21:36)
[2019-01-03] MEDS: CALCIUM CARB-VIT D 500MG-200UN 1 EACH TAB PO SCH ×3 (06:32→17:36)
[2019-01-03] MEDS: SODIUM CHLORIDE 0.9% 1,000 ML IV SCH (06:33)
[2019-01-03 07:09] LABS: Calcium 9.1 mg/dL (8.4-10.2); Potassium 4.3 mmol/L (3.5-5.1)
[2019-01-03] MEDS: PREGABALIN 75 MG CAP PO SCH ×2 (09:15→20:58)
[2019-01-03] MEDS: METOPROLOL TARTRATE 50 MG TAB PO SCH ×2 (09:15→20:58)
[2019-01-03] MEDS: OXYBUTYNIN CHLORIDE 5 MG TAB PO SCH ×2 (09:15→20:58)
[2019-01-03] MEDS: POTASSIUM CHLORIDE ER 10 MEQ TAB.ER.PRT PO SCH (09:15)
[2019-01-03] MEDS: FLUoxetine HCL 20 MG CAP PO SCH (09:16)
[2019-01-03] MEDS: ASPIRIN 81 MG PO SCH (09:16)
[2019-01-03] MEDS: CYANOCOBALAMIN 500 MCG TAB PO SCH (09:16)
[2019-01-03] MEDS: FAMOTIDINE 20 MG/2 ML VIAL IV SCH (09:16)
[2019-01-03] MEDS: HEPARIN SODIUM,PORCINE 5,000 UNIT/ML 1 ML VIAL SQ SCH ×2 (09:16→20:58)
[2019-01-03 12:01] LABS: Glucose,Whole Blood 162 mg/dL (75-99)
--- NOTE | 2019-01-03 13:09 | P.PN ---
Subjective Patient is seen in follow-up for acute kidney injury. Renal function is slightly worse with creatinine at 2.11 today. Denies chest pain or shortness of breath. No edema. Good urine output. Hemodynamically stable. Echocardiogram revealed ejection fraction of less than 20% with moderate pulmonary hypertension. Vital signs are stable. General: The patient appeared well nourished and normally developed. HEENT: Head exam is unremarkable. Neck is without jugular venous distension. LUNGS: Lungs are clear to auscultation and percussion. Breath sounds decreased. HEART: Rate and Rhythm are regular. First and second heart sounds normal. No mur murs, rubs or gallops. ABDOMEN: Abdominal exam reveals normal bowel sounds. Non-tender and non-dist ended. No evidence of peritonitis. EXTREMITITES: No clubbing, cyanosis, or edema. Objective - Vital Signs Vital signs: Vital Signs Temp 98.4 F 01/03/19 12:00 Pulse 57 L 01/03/19 12:00 Resp 19 01/03/19 12:00 BP 128/67 01/03/19 12:00 Pulse Ox 99 01/03/19 12:00 Intake & Output 01/02/19 01/03/19 01/03/19 18:59 06:59 18:59 Intake Total 886 460 Output Total 450 Balance 436 460 Weight 90.2 kg Intake: IV 500 Sodium Chloride 0.9% 1, 500 000 ml @ 50 mls/hr IV . Q20H [facility] [place] Rx#:[id number] Oral 386 460 Output: Urine 450 Other: Voiding Method Bedpan Bedpan Diaper Diaper # Voids 1 - Labs CBC & Chem 7: 01/02/19 07:30 01/03/19 06:09 Labs: Abnormal Lab Results - Last 24 Hours (Table) 01/02/19 01/02/19 01/03/19 Range/Units 16:33 20:29 06:03 Chloride (98-107) mmol/L Carbon Dioxide (22-30) mmol/L BUN (7-17) mg/dL Creatinine (0.52-1.04) mg/dL Glucose (74-99) mg/dL POC Glucose (mg/dL) 122 H 220 H 107 H (75-99) mg/dL 01/03/19 01/03/19 Range/Units 06:09 11:56 Chloride 112 H (98-107) mmol/L Carbon Dioxide 20 L (22-30) mmol/L BUN 39 H (7-17) mg/dL Creatinine 2.11 H (0.52-1.04) mg/dL Glucose 105 H (74-99) mg/dL POC Glucose (mg/dL) 162 H (75-99) mg/dL Microbiology - Last 24 Hours (Table) 01/01/19 03:14 Blood Culture - Preliminary Blood No Growth after 48 hours Assessment and Plan Plan: Assessment: 1. Acute kidney injury mostly prerenal secondary to diuresis and hypotension. Creatinine 2.49 on admission and did come down to 1.94 with IV hydration. It is 2.11 today. UA is benign. No hydronephrosis noted on ultrasound from October 2018. 2. Rule out chronic kidney disease. Creatinine was in the range of 1.6-1.8 in October 2018. 3. Atrophic right kidney. 4. Anemia. Iron deficiency noted. 5. Lactic acidosis secondary to hypotension. Improved with IV fluids. 6. Systolic CHF with ejection fraction of less than 20% with moderate pulmonary hypertension. 7. Metabolic acidosis secondary to IV fluids and acute kidney injury. Plan: Hep-Lock IV fluids. Hold off on diuretics today. IV iron 3 doses. First dose today. Discussed with cardiology. Patient may require cardiac catheterization. Will need to be cautious with IV fluids due to patient's severely depressed ejection fraction.
--- NOTE | 2019-01-03 13:53 | P.PN ---
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 78-year-old female one of Dr. Sanchez's patient with past medical history of CAD, CHF, COPD and recurrent UTI and sepsis was the hospital last in early November for UTI infection was treated and end up going to [facility] on leg for repeat of time has been back home doing well continue to have problem with heart failure fluid retention and shortness of breath on and off the left have significant weakness of the lower extremity not been able to put any weight or pressure not been able to ambulate and walk with severe generalized weakness end ed up coming to the emergency department shortly before midnight on 12/31 where was seen and evaluated surprisingly her lactic acid is elevated white blood cell were up troponin was elevated as well and she had much worsening kidney function with prerenal picture. Patient was started on hydration IV antibiotic with Zosyn culture was done and admitted to the hospital for the above problem. Apparently patient has been on antibiotic even the last few days with amoxicillin for UTI was diagnosed as an outpatient culture is not available at this point which might affect the way however culture which showed this time to despite patient being sick and septic her culture might still come back negati ve. Patient is otherwise hemodynamically stable blood pressure fluctuating slightly bit not very low and she is mild tachycardic with mildly elevated troponin. Patient was seen cardiology and transfer after his second troponin to the cardiac floor troponin was mildly elevated, and apparently review her EKG was slightly bit different from before. Patient eventually would need to go for heart cath when she is more stable medically she continued to have mild arrhythmia otherwise stable hemodynamically doing better. Will ask social worker aide to help patient with either home care or alf michelle ab and advance PTOT gradually. 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 Meanwhile continue medical management. Objective - Vital Signs Vital signs: Vital Signs Temp 98.4 F 01/03/19 12:00 Pulse 57 L 01/03/19 12:00 Resp 19 01/03/19 12:00 BP 128/67 01/03/19 12:00 Pulse Ox 99 01/03/19 12:00 Intake & Output 01/02/19 01/03/19 01/03/19 18:59 06:59 18:59 Intake Total 886 460 Output Total 450 Balance 436 460 Weight 90.2 kg Intake: IV 500 Sodium Chloride 0.9% 1, 500 000 ml @ 50 mls/hr IV . Q20H [facility] Rx#:[id number] Oral 386 460 Output: Urine 450 Other: Voiding Method Bedpan Bedpan Diaper Diaper # Voids 1 - Exam Review of Systems CONSTITUTIONAL: Well-developed no acute respiratory distress. EYES: No icterus sclerae, no conjunctivitis. EARS, NOSE, MOUTH, THROAT, and FACE: No sore throat, lymphadenopathy, carotid bruits or deformity. RESPIRATORY: Positive dyspnea and shortness of breath. CARDIOVASCULAR: Positive PND orthopnea palpitations no angina GASTROINTESTINAL: No Abd pain, Nausea or vomiting, no Diarrhea or constipation, No GI Bleed, no distention or masses. GENITOURINARY: Recurrent to my tract infection with burning discomfort and frequency with no sign of kidney stone recently worsening kidney function. INTEGUMENT/BREAST: Negative for any muscular injury with mild osteoarthritis.. HEMATOLOGIC/LYMPHATIC: Negative for bleed or purpura. MUSCULOSKELTAL: Negative for Myalgia or arthralgia. NEURLOGICAL: Mild dizziness lightheadedness and mental status change. BEHAVIORAL/PSYCH: Negative. ENDOCRINE: Negative. Physical Exam General Appearance: Alert, cooperative, no distress, appears stated age. Neck HEENT: Supple, no lymphadenopathy, no thyroid enlargement, no carotid bruits. Lungs: Decreased breath sound bilaterally with fine rhonchi with mild expiratory wheezes. Chest Wall: Chest wall normal expansion with deep inspiration no tenderness and no deformity was found on exam, no costochondral pain or discomfort. Heart: Irregular rate and rhythm, S1, S2 positive S3 positive JVD. Back: Symmetric, no curvature, ROM normal, no CVA tenderness. Abdomen: Soft no sign of organomegaly or ascites with positive slight discomfort and lower abdominal region area in the flank area bilaterally. Extremities: Extremities normal, atraumatic, no cyanosis or edema. Pulses: 2+ and symmetric. Skin: Skin color, texture, tugor normal, no rashes or lesions. Neurologic: Alert oriented x3 cranial nerves II through XII intact, no motor deficit, no abnormal balance or gait. - Labs CBC & Chem 7: 01/02/19 07:30 01/03/19 06:09 Labs: Abnormal Lab Results - Last 24 Hours (Table) 01/02/19 01/02/19 01/03/19 Range/Units 16:33 20:29 06:03 Chloride (98-107) mmol/L Carbon Dioxide (22-30) mmol/L BUN (7-17) mg/dL Creatinine (0.52-1.04) mg/dL Glucose (74-99) mg/dL POC Glucose (mg/dL) 122 H 220 H 107 H (75-99) mg/dL 01/03/19 01/03/19 Range/Units 06:09 11:56 Chloride 112 H (98-107) mmol/L Carbon Dioxide 20 L (22-30) mmol/L BUN 39 H (7-17) mg/dL Creatinine 2.11 H (0.52-1.04) mg/dL Glucose 105 H (74-99) mg/dL POC Glucose (mg/dL) 162 H (75-99) mg/dL Microbiology - Last 24 Hours (Table) 01/01/19 03:14 Blood Culture - Preliminary Blood No Growth after 48 hours Assessment and Plan Plan: 1 sepsis: Most likely from urinary tract infection not well treated, patient was seen infectious disease and switch to daptomycin doing well with it so far. 2 acute kidney injury and acute kidney failure: Most likely from dehydration and prerenal related to the infection, patient will be seen nephrology renal ultrasound be done continue gentle hydration repeat BUN/creatinine daily basis. 3 elevated troponin: With very low ejection fraction, patient had nonischemic cardiopathy and possibility of ischemia still exists but no cardiac catheter can be done until infection is a clear patient might need to have another echo in 2- 3 weeks and plan heart catheter afterward.. 4 congestive heart failure: Mostly systolic dysfunction, remain on furosemide and can benefit from smaller dose of metoprolol along with possible need for hydralazine and isosorbide. 5 COPD: Patient will be on updraft treatment. 6 chronic depression: Has been on Prozac continue medication. 7 chronic pain management: Patient remain on Tylenol and Lyrica. 8 type 2 diabetes: Not in any regular insulin patient will be on Accu-Chek with sliding scale continue to watch for hyperglycemia repeat A1c if needed. With finalize her antibiotics, discussed with cardiology and plan for finalizing antibiotic and having to do heart catheter and echocardiogram in 2-3 weeks.
--- NOTE | 2019-01-03 14:32 | P.PN ---
Subjective Progress Note Date: 01/03/19 This is a pleasant 78-year-old female with known history of hypertension, hyperlipidemia, diabetes, COPD, recurrent UTI with sepsis, most recently in November of this year she was admitted to the hospital with UTI and sepsis and went to [facility] for rehab following her admission to the hospital. She presents to the hospital on this admission with significant weakness, she states that her knees gave out on her and she went down to the floor, she did not pass out, no evidence of any syncope. Patient denies any recent shortness of breath, no chest discomfort. Chest x-ray performed on arrival here showed mild vascular congestion with no pleural effusion or consolidation. There is a 9 mm nodule in the right lower lobe and an 8 mm nodule in the left lower lobe, CT recommended. Initial EKG on presentation here showed a normal sinus rhythm with a first-degree AV block, subsequent EKG showed sinus bradycardia with nonspecific ST-T wave changes noted in the anterior lateral leads. According to the patient, there is been a recent loss and the family, and arrangements are being made, she's been under significant amount of stress. Blood pressure on arrival here 140/60 with a heart rate in the 70s, 96% on 3 L of oxygen. Blood pressure this morning 124/70 with a heart rate in the 70s, 95% on 2 L of oxygen. White blood cell count 14.8 on admission, 10.7 this morning, hemoglobin 9.5 on admission, 8.5 this morning, platelet count 207. Sodium 139, potassium 4.3, BUN on admission 57 with a creatinine of 2.4, 43 and 1.9 this morning. Plasma lactic acid 2.2 on admission. Troponin 0.064, 1.2, 1.1. Because of the abnormality in troponin, a cardiology consultation has been re quested. At the time of my examination this morning, patient just had an episode of vomiting, still continues to be mildly nauseated. Upon review of admission in November, it appears at that time that the patient was in atrial fibrillation, this admission there is no documented A. fib, she remains in sinus at this time. 01/03/2019 Patient was seen and examined this morning, feeling well overall. Breathing is stable, denies any chest pain. An echocardiogram with Doppler study was performed revealed an ejection fraction of less than 20%, moderate pulmonary hypertension. At this point in time because of the patient's renal function, we will continue maximal medical therapy. It was explained to the patient in detail that her heart muscle function was quite weak. Down the road if her kidn ey function improves she may require cardiac catheterization. Odium 140, potassium 4.3, BUN 39 and creatinine 2.1, magnesium 2.0. Objective - Vital Signs Vital signs: Vital Signs Temp 98.4 F 01/03/19 12:00 Pulse 57 L 01/03/19 12:00 Resp 19 01/03/19 12:00 BP 128/67 01/03/19 12:00 Pulse Ox 99 01/03/19 12:00 Intake & Output 01/02/19 01/03/19 01/03/19 18:59 06:59 18:59 Intake Total 886 460 Output Total 450 Balance 436 460 Weight 90.2 kg Intake: IV 500 Sodium Chloride 0.9% 1, 500 000 ml @ 50 mls/hr IV . Q20H STEPHANIE Rx#:[id number] Oral 386 460 Output: Urine 450 Other: Voiding Method Bedpan Bedpan Diaper Diaper # Voids 1 - Exam PHYSICAL EXAMINATION: GENERAL: 78-year-old female in no acute distress at the time of my examination HEENT: Head is atraumatic, normocephalic. Pupils equal, round. Sclera anicteric. Conjunctiva are clear. Mucous membranes of the mouth are moist. Neck is supple. There is no elevated jugular venous pressure. No carotid bruit is heard. HEART EXAMINATION: Heart S1 and S2 systolic murmur is heard. CHEST EXAMINATION: Lungs reveal fine expiratory wheezing throughout. ABDOMEN: Soft, nontender. Bowel sounds are heard. No organomegaly noted. EXTREMITIES: 2+ peripheral pulses with no evidence of peripheral edema and no calf tenderness noted. NEUROLOGIC patient is awake, alert and oriented 2 . . - Labs CBC & Chem 7: 01/02/19 07:30 01/03/19 06:09 Labs: Abnormal Lab Results - Last 24 Hours (Table) 01/02/19 01/02/19 01/03/19 Range/Units 16:33 20:29 06:03 Chloride (98-107) mmol/L Carbon Dioxide (22-30) mmol/L BUN (7-17) mg/dL Creatinine (0.52-1.04) mg/dL Glucose (74-99) mg/dL POC Glucose (mg/dL) 122 H 220 H 107 H (75-99) mg/dL 01/03/19 01/03/19 Range/Units 06:09 11:56 Chloride 112 H (98-107) mmol/L Carbon Dioxide 20 L (22-30) mmol/L BUN 39 H (7-17) mg/dL Creatinine 2.11 H (0.52-1.04) mg/dL Glucose 105 H (74-99) mg/dL POC Glucose (mg/dL) 162 H (75-99) mg/dL Microbiology - Last 24 Hours (Table) 01/01/19 03:14 Blood Culture - Preliminary Blood No Growth after 48 hours Assessment and Plan Plan: Assessment and plan #1 sepsis, likely from a UTI, lactic acid on admission 2.2 #2 acute on chronic kidney failure #3 diabetes #4 hypertension #5 hyperlipidemia #6 abnormal troponin, could be secondary to abnormal renal function and sepsis, cannot completely rule out underlying coronary artery disease in a patient with multiple risk factors. Issue EKG shows sinus bradycardia, subsequent EKG shows a sinus bradycardia with anterior lateral ST-T wave changes. EKG in November does show some mild changes in the anterior lateral leads as well. #7 chronic anemia #8 paroxysmal atrial fibrillation, patient was noted to have atrial fibrillation on her admission to hospital in November, she was admitted with sepsis at that time. She continues to be in normal sinus rhythm now Plan From cardiology's perspective, we'll continue maximal medical therapy at this point in time. Her creatinine today is 2.1. Continue metoprolol at a small dose of nitrates and hydralazine. Down the road if the patient's kidney function improves, she will require cardiac catheterization. This was explained to her in detail today. We also recommend on discharge that the patient have a monitor, if she has any further atrial fibrillation, she will need to be on anticoagulation. DNP note has been reviewed, I agree with a documented findings and plan of care. Patient was seen and examined.
[2019-01-03] MEDS: SODIUM FERRIC GLUCONAT-SUCROSE 125 MG in SODIUM CHLORIDE 0.9% 100 ML IVPB SCH (15:24)
[2019-01-03 17:00] LABS: Glucose,Whole Blood 140 mg/dL (75-99)
[2019-01-03] MEDS: DAPTOmycin 500 MG in SODIUM CHLORIDE 0.9% 50 ML IVPB SCH (17:36)
[2019-01-03] MEDS: ATORVASTATIN 20 MG TAB PO SCH (20:58)
[2019-01-03 21:08] LABS: Glucose,Whole Blood 143 mg/dL (75-99)
[2019-01-04 06:14] VITALS: PULSE 71
[2019-01-04 06:24] LABS: Glucose,Whole Blood 153 mg/dL (75-99)
[2019-01-04] MEDS: INSULIN ASPART (NovoLOG) 100 UNIT/ML VIAL SQ SCH (06:51)
[2019-01-04] MEDS: CALCIUM CARB-VIT D 500MG-200UN 1 EACH TAB PO SCH (06:51)
[2019-01-04 07:08] LABS: Basophils % (A) 0 %; Eosinophils # (A) 0.2 k/uL (0-0.7); Eosinophils % (A) 2 %; HCT 29.7 % (34.0-46.0); HGB 8.8 gm/dL (11.4-16.0); Hypochromasia Marked; Lymphocytes # (A) 2.6 k/uL (1.0-4.8); Lymphocytes % (A) 21 %; MCH 26.5 pg (25.0-35.0); MCHC 29.7 g/dL (31.0-37.0); MCV 89.1 fL (80.0-100.0); Mean Platelet Volume 9.9; Monocytes % (A) 8 %; Neutrophils # (A) 8.4 k/uL (1.3-7.7); Neutrophils % (A) 67 %; Platelet Count 191 k/uL (150-450); RBC 3.33 m/uL (3.80-5.40); RDW 15.5 % (11.5-15.5); WBC 12.6 k/uL (3.8-10.6)
[2019-01-04 07:22] LABS: Calcium 9.3 mg/dL (8.4-10.2); Magnesium 1.9 mg/dL (1.6-2.3); Potassium 4.8 mmol/L (3.5-5.1); Total Bilirubin 0.4 mg/dL (0.2-1.3); Total Protein 6.2 g/dL (6.3-8.2)
[2019-01-04] MEDS: POTASSIUM CHLORIDE ER 10 MEQ TAB.ER.PRT PO SCH (08:57)
[2019-01-04] MEDS: OXYBUTYNIN CHLORIDE 5 MG TAB PO SCH (08:57)
[2019-01-04] MEDS: SODIUM FERRIC GLUCONAT-SUCROSE 125 MG in SODIUM CHLORIDE 0.9% 100 ML IVPB SCH (08:57)
[2019-01-04] MEDS: CYANOCOBALAMIN 500 MCG TAB PO SCH (08:57)
[2019-01-04] MEDS: METOPROLOL TARTRATE 50 MG TAB PO SCH (08:57)
[2019-01-04] MEDS: PREGABALIN 75 MG CAP PO SCH (08:57)
[2019-01-04] MEDS: HEPARIN SODIUM,PORCINE 5,000 UNIT/ML 1 ML VIAL SQ SCH (08:57)
[2019-01-04] MEDS: ASPIRIN 81 MG PO SCH (08:57)
[2019-01-04] MEDS: FLUoxetine HCL 20 MG CAP PO SCH (08:58)
[2019-01-04] MEDS ORDERED: FAMOTIDINE 20 MG/2 ML VIAL IV SCH (09:00)
[2019-01-04 09:39] VITALS: BP 119/56; RESP 16; TEMP 97.1
--- NOTE | 2019-01-04 12:29 | P.PN ---
Subjective Patient is seen in follow-up for acute kidney injury. Renal function is stable. Denies chest pain or shortness of breath. No edema. Good urine output. Hemodynamically stable. Echocardiogram revealed ejection fraction of less than 20% with moderate pulmonary hypertension. Vital signs are stable. General: The patient appeared well nourished and normally developed. HEENT: Head exam is unremarkable. Neck is without jugular venous distension. LUNGS: Lungs are clear to auscultation and percussion. Breath sounds decreased. HEART: Rate and Rhythm are regular. First and second heart sounds normal. No murmurs, rubs or gallops. ABDOMEN: Abdominal exam reveals normal bowel sounds. Non-tender and non- distended. No evidence of peritonitis. EXTREMITITES: No clubbing, cyanosis, or edema. Objective - Vital Signs Vital signs: Vital Signs Temp 97.1 F L 01/04/19 08:00 Pulse 71 01/04/19 04:00 Resp 16 01/04/19 08:00 BP 119/56 01/04/19 08:00 Pulse Ox 93 L 01/04/19 04:00 Intake & Output 01/03/19 01/04/19 01/04/19 18:59 06:59 18:59 Intake Total 700 300 360 Output Total 400 250 400 Balance 300 50 -40 Weight 81.8 kg Intake: IV 300 Sodium Chloride 0.9% 1, 300 000 ml @ 50 mls/hr IV . Q20H STEPHANIE Rx#:[id number] Oral 700 360 Output: Urine 400 250 400 Other: # Bowel Movements 1 - Labs CBC & Chem 7: 01/04/19 06:43 01/04/19 06:43 Labs: Abnormal Lab Results - Last 24 Hours (Table) 01/03/19 01/03/19 01/04/19 Range/Units 16:44 21:06 06:22 WBC (3.8-10.6) k/uL RBC (3.80-5.40) m/uL Hgb (11.4-16.0) gm/dL Hct (34.0-46.0) % MCHC (31.0-37.0) g/dL Neutrophils # (1.3-7.7) k/uL Chloride (98-107) mmol/L BUN (7-17) mg/dL Creatinine (0.52-1.04) mg/dL Glucose (74-99) mg/dL POC Glucose (mg/dL) 140 H 143 H 153 H (75-99) mg/dL AST (14-36) U/L Total Protein (6.3-8.2) g/dL Albumin (3.5-5.0) g/dL 01/04/19 01/04/19 Range/Units 06:43 06:43 WBC 12.6 H (3.8-10.6) k/uL RBC 3.33 L (3.80-5.40) m/uL Hgb 8.8 L (11.4-16.0) gm/dL Hct 29.7 L (34.0-46.0) % MCHC 29.7 L (31.0-37.0) g/dL Neutrophils # 8.4 H (1.3-7.7) k/uL Chloride 110 H (98-107) mmol/L BUN 34 H (7-17) mg/dL Creatinine 2.07 H (0.52-1.04) mg/dL Glucose 149 H (74-99) mg/dL POC Glucose (mg/dL) (75-99) mg/dL AST 47 H (14-36) U/L Total Protein 6.2 L (6.3-8.2) g/dL Albumin 3.0 L (3.5-5.0) g/dL Microbiology - Last 24 Hours (Table) 01/01/19 03:14 Blood Culture - Preliminary Blood No Growth after 72 hours Assessment and Plan Plan: Assessment: 1. Acute kidney injury mostly prerenal secondary to diuresis and hypotension. Creatinine 2.49 on admission and stable at 2.07 today. UA is benign. No hydronephrosis noted on ultrasound from October 2018. 2. Rule out chronic kidney disease. Creatinine was in the range of 1.6-1.8 in October 2018. 3. Atrophic right kidney. 4. Anemia. Iron deficiency noted. 5. Lactic acidosis secondary to hypotension. Improved with IV fluids. 6. Systolic CHF with ejection fraction of less than 20% with moderate pulmonary hypertension. 7. Metabolic acidosis secondary to IV fluids and acute kidney injury. Better. Plan: Hep-Lock IV fluids. Resume Lasix 20 mg orally twice daily. I advised the patient to monitor her weight closely and if notices more than 2-3 pound weight gain or worsening of dyspnea and edema, then she is to increase the dose of Lasix to 40 mg twice daily. Follow up outpatient in the next 2 weeks. IV iron 3 doses. Second dose today.
--- NOTE | 2019-01-04 14:23 | P.PN ---
Subjective Progress Note Date: 01/04/19 This is a pleasant 78-year-old female with known history of hypertension, hyperlipidemia, diabetes, COPD, recurrent UTI with sepsis, most recently in November of this year she was admitted to the hospital with UTI and sepsis and went to [facility] for rehab following her admission to the hospital. She presents to the hospital on this admission with significant weakness, she states that her knees gave out on her and she went down to the floor, she did not pass out, no evidence of any syncope. Patient denies any recent shortness of breath, no chest discomfort. Chest x-ray performed on arrival here showed mild vascular congestion with no pleural effusion or consolidation. There is a 9 mm nodule in the right lower lobe and an 8 mm nodule in the left lower lobe, CT recommended. Initial EKG on presentation here showed a normal sinus rhythm with a first-degree AV block, subsequent EKG showed sinus bradycardia with nonspecific ST-T wave changes noted in the anterior lateral leads. According to the patient, there is been a recent loss and the family, and arrangements are being made, she's been under significant amount of stress. Blood pressure on arrival here 140/60 with a heart rate in the 70s, 96% on 3 L of oxygen. Blood pressure this morning 124/70 with a heart rate in the 70s, 95% on 2 L of oxygen. White blood cell count 14.8 on admission, 10.7 this morning, hemoglobin 9.5 on admission, 8.5 this morning, platelet count 207. Sodium 139, potassium 4.3, BUN on admission 57 with a creatinine of 2.4, 43 and 1.9 this morning. Plasma lactic acid 2.2 on admission. Troponin 0.064, 1.2, 1.1. Because of the abnormality in troponin, a cardiology consultation has been re quested. At the time of my examination this morning, patient just had an episode of vomiting, still continues to be mildly nauseated. Upon review of admission in November, it appears at that time that the patient was in atrial fibrillation, this admission there is no documented A. fib, she remains in sinus at this time. 01/03/2019 Patient was seen and examined this morning, feeling well overall. Breathing is stable, denies any chest pain. An echocardiogram with Doppler study was performed revealed an ejection fraction of less than 20%, moderate pulmonary hypertension. At this point in time because of the patient's renal function, we will continue maximal medical therapy. It was explained to the patient in detail that her heart muscle function was quite weak. Down the road if her kidn ey function improves she may require cardiac catheterization. Odium 140, potassium 4.3, BUN 39 and creatinine 2.1, magnesium 2.0. 01/04/2019 Patient was seen and, feels well, denies any chest discomfort, breathing overall is stable. Blood pressure 44061 with a heart rate in the 60s, 98% on room air. White blood cell count 12.6, hemoglobin 8.8, platelet count 191. Sodium 139, potassium 4.8, BUN 34 and creatinine 2.0. Magnesium 1.9. Objective - Vital Signs Vital signs: Vital Signs Temp 97.1 F L 01/04/19 08:00 Pulse 71 01/04/19 04:00 Resp 16 01/04/19 08:00 BP 119/56 01/04/19 08:00 Pulse Ox 93 L 01/04/19 04:00 Intake & Output 01/03/19 01/04/19 01/04/19 18:59 06:59 18:59 Intake Total 700 300 360 Output Total 400 250 400 Balance 300 50 -40 Weight 81.8 kg Intake: IV 300 Sodium Chloride 0.9% 1, 300 000 ml @ 50 mls/hr IV . Q20H STEPHANIE Rx#:[id number] Oral 700 360 Output: Urine 400 250 400 Other: # Bowel Movements 1 - Exam PHYSICAL EXAMINATION: GENERAL: 78-year-old female in no acute distress at the time of my examination HEENT: Head is atraumatic, normocephalic. Pupils equal, round. Sclera anicteric. Conjunctiva are clear. Mucous membranes of the mouth are moist. Neck is supple. There is no elevated jugular venous pressure. No carotid bruit is heard. HEART EXAMINATION: Heart S1 and S2 systolic murmur is heard. CHEST EXAMINATION: Lungs reveal fine expiratory wheezing throughout. ABDOMEN: Soft, nontender. Bowel sounds are heard. No organomegaly noted. EXTREMITIES: 2+ peripheral pulses with no evidence of peripheral edema and no calf tenderness noted. NEUROLOGIC patient is awake, alert and oriented 2 . . - Labs CBC & Chem 7: 01/04/19 06:43 01/04/19 06:43 Labs: Abnormal Lab Results - Last 24 Hours (Table) 05/21/19 05/21/19 05/22/19 Range/Units 16:44 21:06 06:22 WBC (3.8-10.6) k/uL RBC (3.80-5.40) m/uL Hgb (11.4-16.0) gm/dL Hct (34.0-46.0) % MCHC (31.0-37.0) g/dL Neutrophils # (1.3-7.7) k/uL Chloride (98-107) mmol/L BUN (7-17) mg/dL Creatinine (0.52-1.04) mg/dL Glucose (74-99) mg/dL POC Glucose (mg/dL) 140 H 143 H 153 H (75-99) mg/dL AST (14-36) U/L Total Protein (6.3-8.2) g/dL Albumin (3.5-5.0) g/dL 01/04/19 01/04/19 Range/Units 06:43 06:43 WBC 12.6 H (3.8-10.6) k/uL RBC 3.33 L (3.80-5.40) m/uL Hgb 8.8 L (11.4-16.0) gm/dL Hct 29.7 L (34.0-46.0) % MCHC 29.7 L (31.0-37.0) g/dL Neutrophils # 8.4 H (1.3-7.7) k/uL Chloride 110 H (98-107) mmol/L BUN 34 H (7-17) mg/dL Creatinine 2.07 H (0.52-1.04) mg/dL Glucose 149 H (74-99) mg/dL POC Glucose (mg/dL) (75-99) mg/dL AST 47 H (14-36) U/L Total Protein 6.2 L (6.3-8.2) g/dL Albumin 3.0 L (3.5-5.0) g/dL Microbiology - Last 24 Hours (Table) 01/01/19 03:14 Blood Culture - Preliminary Blood No Growth after 72 hours Assessment and Plan Plan: Assessment and plan #1 sepsis, likely from a UTI, lactic acid on admission 2.2 #2 acute on chronic kidney failure #3 diabetes #4 hypertension #5 hyperlipidemia #6 abnormal troponin, could be secondary to abnormal renal function and sepsis, cannot completely rule out underlying coronary artery disease in a patient with multiple risk factors. Issue EKG shows sinus bradycardia, subsequent EKG shows a sinus bradycardia with anterior lateral ST-T wave changes. EKG in November does show some mild changes in the anterior lateral leads as well. #7 chronic anemia #8 paroxysmal atrial fibrillation, patient was noted to have atrial fibrillation on her admission to hospital in November, she was admitted with sepsis at that time. She continues to be in normal sinus rhythm now Plan Patient is being discharged home today by Dr. Aggarwal. We will make her a follow- up appointment with Dr. Villareal in the office in one week. Lytes BUN and creatinine the day before his office appointment. DNP note has been reviewed, I agree with a documented findings and plan of care. Patient was seen and examined.
--- NOTE | 2019-01-06 14:04 | P.DS ---
Providers Date of admission: 01/01/19 04:26 Expected date of discharge: 01/04/19 Attending physician: Kalia Aggarwal Consults: 01/01/19 09:17 Consult Physician Routine Consulting Provider: Steve Funes Consult Reason/Comments: AKF Do you want consulting provider notified?: Yes, Notify in am 01/01/19 09:18 Consult Physician Routine Consulting Provider: Kalia Colorado Consult Reason/Comments: sepsis Do you want consulting provider notified?: Yes, Notify in am 01/01/19 14:15 Consult Physician Urgent Consulting Provider: Veronica Villareal Consult Reason/Comments: Acute [place] Do you want consulting provider notified?: Yes Primary care physician: Eugenia Sanchez Hospital Course: 78-year-old female one of Dr. Sanchez's patient with past medical history of CAD, CHF, COPD and recurrent UTI and sepsis was the hospital last in early November for UTI infection was treated and end up going to [facility] on leg for repeat of time has been back home doing well continue to have problem with heart failure fluid retention and shortness of breath on and off the left have significant weakness of the lower extremity not been able to put any weight or pressure not been able to ambulate and walk with severe generalized weakness ended up coming to the emergency department shortly before midnight on 12/31 where was seen and evaluated surprisingly her lactic acid is elevated white blo od cell were up troponin was elevated as well and she had much worsening kidney function with prerenal picture. Patient was started on hydration IV antibiotic with Zosyn culture was done and admitted to the hospital for the above problem. Apparently patient has been on antibiotic even the last few days with amoxicillin for UTI was diagnosed as an outpatient culture is not available at this point which might affect the way however culture which showed this time to despite patient being sick and septic her culture might still come back negative. Patient is otherwise hemodynamically stable blood pressure fluctuating slightly bit not very low and she is mild tachycardic with mildly elevated troponin. Patient was seen cardiology and transfer after his second troponin to the cardiac floor troponin was mildly elevated, and apparently review her EKG was slightly bit different from before. Patient eventually would need to go for heart cath when she is more stable medically she continued to have mild arrhythmia otherwise stable hemodynamically doing better. Will ask clinical social work therapist to help patient with either home care or shelter rehab and advance PTOT gradually. 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 Meanwhile continue medical management. 01/04: Patient denies any new complaints. No chest pain or shortness of breath. Blood pressure 132/70, heart rate 60s, pulse ox 90% on room air. White count is 12.6, hemoglobin 8.8 and platelet count 191. Sodium 139, potassium 4.8, BUN 34 and creatinine 2. Magnesium 1.9. Patient has been followed during her stay by Dr. Funes for acute kidney injury. He has recommended resuming Lasix 20 mg twice daily and monitor weight closely at home. If patient notices 2-3 pound weight gain or worsening of dyspnea and edema she is to increase her Lasix to 40 twice daily. Patient to follow-up with Dr. Funes in 2 weeks. Patient did receive IV iron while hospitalized. Renal ultrasound did not show hydronephrosis. Echocardiogram reveals ejection fraction less than 20% with moderate pulmonary hypertension. Patient has also been followed by cardiology with plan for follow-up with Dr. Villareal in the office with lab work to be done prior to the office visit. Acute coronary syndrome has been ruled out by cardiology. She is currently in a normal sinus rhythm. Patient will be discharged home today in stable condition. Patient was also seen and followed by Dr. Colorado with recommendations for doxycycline at discharge. Discharge diagnoses: 1 sepsis secondary to MRSA urinary tract infection 2 acute kidney injury secondary to diureses and hypotension. 3 elevated troponin secondary to sepsis. Acute coronary syndrome ruled out 4 chronic systolic heart failure with EF of 20% and moderate pulmonary hypertension 5 COPD without exacerbation 6 recurrent depression 7 chronic pain management 8 type 2 diabetes 9 anemia of chronic kidney disease 10 paroxysmal atrial fibrillation currently in a sinus rhythm 11 chronic kidney disease stage III with atrophic right kidney 12 metabolic acidosis secondary to acute kidney injury Discharge plan: Home with [facility] Impression and plan of care have been directed as dictated by the signing physician. Thais Scott nurse practitioner acting as scribe for signing physician. Patient Condition at Discharge: Good Plan - Discharge Summary Discharge Rx Participant: Yes New Discharge Prescriptions: New Aspirin 81 mg PO DAILY chew Ferrous Sulfate [Iron (65 MG Elemental)] 325 mg PO DAILY #30 tab Atorvastatin [Lipitor] 20 mg PO HS #30 tab Doxycycline [Vibramycin] 100 mg PO BID #14 cap Continue FLUoxetine HCL [PROzac] 40 mg PO DAILY Oxybutynin Chloride [Ditropan] 5 mg PO BID Metoprolol Tartrate [Lopressor] 50 mg PO BID Pregabalin [Lyrica] 75 mg PO BID #6 cap Acetaminophen Tab [Tylenol] 650 mg PO Q4H PRN PRN Reason: Pain Ipratropium-Albuterol Nebulize [Duoneb 0.5 mg-3 mg/3 ml Soln] 3 ml INHALATION RT-TID PRN PRN Reason: Shortness Of Breath Cyanocobalamin [Vitamin B-12] 500 mcg PO DAILY Calcium Carb-Vit D 500Mg-200Un [Oscal 500+D] 1 tab PO TID-W/MEALS INSULIN ASPART (NovoLOG) [NovoLOG (formulary)] 0 unit SQ ACHS vial Furosemide [Lasix] 20 mg PO BID Potassium Chloride [K-Tab ER] 10 meq PO DAILY Discharge Medication List FLUoxetine HCL [PROzac] 40 mg PO DAILY 10/18/18 [History] Metoprolol Tartrate [Lopressor] 50 mg PO BID 10/18/18 [History] Oxybutynin Chloride [Ditropan] 5 mg PO BID 10/18/18 [History] Pregabalin [Lyrica] 75 mg PO BID #6 cap 10/24/18 [Rx] Acetaminophen Tab [Tylenol] 650 mg PO Q4H PRN 11/01/18 [History] Calcium Carb-Vit D 500Mg-200Un [Oscal 500+D] 1 tab PO TID-W/MEALS 11/18/18 [History] Cyanocobalamin [Vitamin B-12] 500 mcg PO DAILY 11/18/18 [History] Ipratropium-Albuterol Nebulize [Duoneb 0.5 mg-3 mg/3 ml Soln] 3 ml INHALATION RT -TID PRN 11/18/18 [History] INSULIN ASPART (NovoLOG) [NovoLOG (formulary)] 0 unit SQ ACHS vial 11/21/18 [Rx] Furosemide [Lasix] 20 mg PO BID 12/31/18 [History] Potassium Chloride [K-Tab ER] 10 meq PO DAILY 12/31/18 [History] Aspirin 81 mg PO DAILY chew 01/04/19 [Rx] Atorvastatin [Lipitor] 20 mg PO HS #30 tab 01/04/19 [Rx] Doxycycline [Vibramycin] 100 mg PO BID #14 cap 01/04/19 [Rx] Ferrous Sulfate [Iron (65 MG Elemental)] 325 mg PO DAILY #30 tab 01/04/19 [Rx] Follow up Appointment(s)/Referral(s): Veronica Villareal MD [STAFF PHYSICIAN] - 1 Week (Spoke to receptionist/telephone operator. Office will call with follow up appointment.) Eugenia Sanchez MD [Primary Care Provider] - 1 Week (Please call to scheduled appointment. They will not let me do this for you per office policy) Patient Instructions/Handouts: Acute Kidney Injury (DC), Urinary Tract Infection in Women (DC) Activity/Diet/Wound Care/Special Instructions: 30 day event monitor-Office will mail it to you [phone] Discharge Disposition: HOME WITH HOME HEALTH SERVICES
== END 2019-01-04 11:59 | disposition home health service (06) | DRG 872 ==
LOC: EC 22:10 → 4SSUR 01-01 04:26 → 3SCARD 01-01 15:12
PROVIDERS: ADMIT Internal Medicine Geriatric Medicine; ATTEND Internal Medicine Geriatric Medicine
DX: A41.9 Sepsis, unspecified organism (principal); N39.0 Urinary tract infection, site not specified; E87.2 Acidosis; N17.9 Acute kidney failure, unspecified; I50.22 Chronic systolic (congestive) heart failure; I13.0 Hypertensive heart and chronic kidney disease with heart failure and stage 1 through stage 4 chronic kidney disease, or unspecified chronic kidney disease; I42.9 Cardiomyopathy, unspecified; I51.81 Takotsubo syndrome; R65.20 Severe sepsis without septic shock; I95.9 Hypotension, unspecified; E11.22 Type 2 diabetes mellitus with diabetic chronic kidney disease; I27.20 Pulmonary hypertension, unspecified; E86.0 Dehydration; J44.9 Chronic obstructive pulmonary disease, unspecified; I48.0 Paroxysmal atrial fibrillation; D64.9 Anemia, unspecified; N18.9 Chronic kidney disease, unspecified; E61.1 Iron deficiency; I25.10 Atherosclerotic heart disease of native coronary artery without angina pectoris; E78.5 Hyperlipidemia, unspecified; I44.0 Atrioventricular block, first degree; T50.2X5A Adverse effect of carbonic-anhydrase inhibitors, benzothiadiazides and other diuretics, initial encounter; R09.02 Hypoxemia; F41.9 Anxiety disorder, unspecified; F32.9 Major depressive disorder, single episode, unspecified; G89.29 Other chronic pain; N26.1 Atrophy of kidney (terminal); R77.8 Other specified abnormalities of plasma proteins; M19.90 Unspecified osteoarthritis, unspecified site; Z79.4 Long term (current) use of insulin; Z79.899 Other long term (current) drug therapy; Z87.440 Personal history of urinary (tract) infections; Z86.14 Personal history of Methicillin resistant Staphylococcus aureus infection; Z90.49 Acquired absence of other specified parts of digestive tract; Z98.891 History of uterine scar from previous surgery; Z87.891 Personal history of nicotine dependence; Z98.42 Cataract extraction status, left eye; Z98.41 Cataract extraction status, right eye; Z96.1 Presence of intraocular lens; Z88.5 Allergy status to narcotic agent
CPT/HCPCS: 36415; 71046; 80048; 80053; 81001; 82728; 83540; 83550; 83605; 83735; 84484; 85025; 85610; 85730; 87040; 93005; 93306; 96365; 96367; 99285

== ENCOUNTER → 2020-06-11 | Outpatient (CLI) | payer MEDICARE ==
[2020-06-12 13:24] LABS: Total Volume 24 Hour,Urine 700 mL
[2020-06-12 13:43] LABS: Total Protein 24 Hour,Urine 899.5 mg/24Hr
== END | disposition home or self-care (01) ==
LOC: LABWHC1 14:23
PROVIDERS: ATTEND Family Medicine
DX: N18.4 Chronic kidney disease, stage 4 (severe) (principal)
CPT/HCPCS: 81050; 84156

== ENCOUNTER → 2020-06-11 | Outpatient (CLI) | payer MEDICARE ==
--- NOTE | 2020-06-11 15:27 | US ---
EXAMINATION TYPE: US kidneys/renal and bladder DATE OF EXAM: 06/11/2020 COMPARISON: CT lumbar spine October 18, 2018 CLINICAL HISTORY: N18.4 CKD STAGE 4. EXAM MEASUREMENTS: Right Kidney: 9.2 x 3.5 x 3.9 cm Left Kidney: 9.8 x 3.6 x 4.3 cm Right Kidney: cortical thinning Left Kidney: cortical thinning Bladder: wnl *Incidental finding of enlarged uterus. There is no evidence for hydronephrosis at this point in time. Increased cortical echogenicity is pre sent bilaterally. No shadowing nephrolithiasis is seen. No masses are identified on images saved. The urinary bladder is satisfactorily distended. Bilateral ureteral jets are not seen. Somewhat prom inent anteverted uterus noted cranial to bladder. IMPRESSION: No hydronephrosis noted bilaterally.
== END | disposition home or self-care (01) ==
LOC: RADUSWWP 14:13
PROVIDERS: ATTEND Family Medicine
DX: N18.4 Chronic kidney disease, stage 4 (severe) (principal)
CPT/HCPCS: 76770

== ENCOUNTER → 2020-06-21 | Outpatient (CLI) | payer MEDICARE ==
[2020-06-21 13:36] LABS: HCT 37.1 % (34.0-46.0); Hypochromasia Slight; MCH 31.9 pg (25.0-35.0); MCHC 32.4 g/dL (31.0-37.0); MCV 98.6 fL (80.0-100.0); Mean Platelet Volume 7.7; Platelet Count 293 k/uL (150-450); RBC 3.76 m/uL (3.80-5.40); WBC 14.9 k/uL (3.8-10.6)
[2020-06-21 20:16] LABS: African American GFR (CKD) 30.7 (60.0-200.0); Albumin 3.8 g/dL (3.80-4.90); Albumin/Globulin Ratio 1.31 (1.60-3.17); Anion Gap 8.7 mmol/L (4.00-12.00); BUN/Creat Ratio 16.67 Ratio (12.00-20.00); C Reactive Protein 1.6 mg/dL (0.0-0.8); Calcium 8.9 mg/dL (8.7-10.3); Carbon Dioxide 24.3 mmol/L (21.6-31.8); Globulin 2.9 g/dL (1.6-3.3); Non-African American GFR(CKD) 26.5 (60.0-200.0); Potassium 4.4 mmol/L (3.5-5.5); Total Bilirubin 0.3 mg/dL (0.3-1.2); Total Protein 6.7 g/dL (6.2-8.2)
== END | disposition home or self-care (01) ==
LOC: LABWHC1 11:36
PROVIDERS: ATTEND Family Medicine
DX: N18.4 Chronic kidney disease, stage 4 (severe) (principal)
CPT/HCPCS: 36415; 80053; 81050; 82306; 83970; 84100; 85027; 86140; 87205

== ENCOUNTER → 2020-10-17 | Outpatient (CLI) | payer MEDICARE ==
--- NOTE | 2020-10-17 13:19 | CT ---
EXAMINATION TYPE: CT abdomen pelvis wo con DATE OF EXAM: 10/17/2020 COMPARISON: None HISTORY: 79-year-old female R1 9.04, left lower quadrant abdominal swelling and pain. CT DLP: 915 mGycm. Automated exposure control for dose reduction was used. TECHNIQUE: Contiguous axial scanning of the abdomen and pelvis without IV contrast. Coronal and sagit fabien reconstructions performed. FINDINGS: Heart mildly enlarged without pericardial effusion. Scattered coronary artery calcifications are pres ent. Mitral annular calcifications as well. Scattered calcified granulomas at the lung bases. Nonspecific, noncalcified 6 mm peripheral right basilar pulmonary nodule. Small calcified granulomas in the liver. Numerous calcified granulomas in the spleen. Cholecystectomy clips are present. Noncontrast appearance of the adrenal glands, kidneys, and atrophic pancreas show no gross abnormal b oni. No dilated small bowel, free fluid, or free air. No mesenteric or retroperitoneal lymphadenopathy. Normal appendix. Mild stool burden. There is mid to distal sigmoid diverticulosis but no pericolic inflammatory change seen. Small to moderate-sized periumbilical hernia measuring 2.9 cm wide. Moderate prostatic calcifications infrarenal abdominal aorta and common iliac arteries. Bladder partially distended. Uterus appears bulky measuring up to 11.2 cm which is unusual for a post menopausal female. The ovaries appear small. Small pelvic phleboliths. No abnormal fluid collection t he pelvis or pelvic lymphadenopathy. Bones: Mild degenerative change of the hips. Degenerated levoconvex scoliosis of the lumbar spine. Hy pertrophic facet arthropathy. Grade 1 anterolisthesis L5-S1 and grade 1 retrolisthesis L1-L2 and L2-L 3. IMPRESSION: 1. Large appearance to the uterus (11.2 cm long), unusual in a postmenopausal female. Recommend pelv ic ultrasound to exclude any suspicious endometrial thickening (that could indicate endometrial cance r) or myometrial mass/fibroid change. 2. Small to moderate-sized fatty umbilical hernia measuring 2.9 cm wide. 3. Evidence of prior granulomatous disease. A 6 mm right basilar pulmonary nodule could represent a noncalcified granuloma. Recommend 6 month follow-up CT chest to reassess. 4. Mid to distal sigmoid diverticulosis without acute diverticulitis.
== END ==
LOC: RADCTMAIN 10:26
PROVIDERS: ATTEND Family Medicine
DX: R19.04 Left lower quadrant abdominal swelling, mass and lump (principal); K42.9 Umbilical hernia without obstruction or gangrene; K57.30 Diverticulosis of large intestine without perforation or abscess without bleeding
CPT/HCPCS: 74176; Q9967

== ENCOUNTER → 2020-11-18 | Outpatient (CLI) | payer MEDICARE ==
--- NOTE | 2020-11-18 12:31 | XR ---
EXAMINATION TYPE: XR bone survey complete DATE OF EXAM: 11/18/2020 COMPARISON: NONE HISTORY: D47.2 E78.5 I10 Bony calvarium : 2 views of the bony calvarium demonstrate no lytic or sclerotic lesion CHEST: Scattered granulomas seen. No definite lytic or sclerotic lesions of the ribs. Spine: Two views of the cervical, thoracic and lumbar spines are submitted. Degenerative changes not ed throughout at least moderate in degree. Vague lucencies involving T7-T8 and T9. Underlying lesions are difficult to exclude. PELVIS: Single view of the pelvis demonstrates no lytic or sclerotic lesion UPPER EXTREMITIES: Two views of the upper extremities reveals no lytic or sclerotic lesion LOWER EXTREMITIES: 2 views of the lower extremities reveals no lytic or sclerotic lesion IMPRESSION: 1. Thoracic spine lesions are difficult to exclude.
== END | disposition home or self-care (01) ==
LOC: RADXRMAIN 10:50
PROVIDERS: ATTEND Internal Medicine Hematology & Oncology
DX: D47.2 Monoclonal gammopathy (principal)
CPT/HCPCS: 77075

== ENCOUNTER → 2020-11-25 | Outpatient (CLI) | payer MEDICARE ==
--- NOTE | 2020-11-25 13:58 | US ---
EXAMINATION TYPE: US pelvic complete DATE OF EXAM: 11/25/2020 COMPARISON: CT October 17, 2020 CLINICAL HISTORY: D39.0 CA Uterus. enlarged uterus on recent CT. intermittent spotting TECHNIQUE: Transabdominal (TA) - patient refusing TV exam at this time Date of LMP: unknown EXAM MEASUREMENTS: Uterus: 11.0 x 5.1 x 6.0cm Endometrial Stripe: unable to visualize Right Ovary: unable to visualize Left Ovary: unable to visualize 1. Uterus: Anteverted enlarged, heterogeneous, hypoechoic area = 1.3 x 1.6 x 2.0cm, ?possible mass consuming fundus/body - difficult to visualize borders 2. Endometrium: unable to clearly identify 3. Right Ovary: Obscured by overlying bowel gas 4. Left Ovary: Obscured by overlying bowel gas 5. Bilateral Adnexa: appears wnl 6. Posterior cul-de-sac: wnl Distinct atrophic or abnormal enlarged endometrial stripe not identified. Heterogeneous uterus noted. No free fluid. Neither ovary clearly seen. No suspicious adnexal masses. IMPRESSION: As above. Patient may benefit with pelvic MRI or direct visualization to further evaluate .
== END | disposition home or self-care (01) ==
LOC: RADUSWWP 08:13
PROVIDERS: ATTEND Family Medicine
DX: N85.2 Hypertrophy of uterus (principal)
CPT/HCPCS: 76856

== ENCOUNTER 2021-06-20 13:04 | Inpatient (IN) | payer MEDICARE ==
[2021-06-20] MEDS ORDERED: ONDANSETRON 4 MG/2 ML VIAL IVP STA (13:37)
[2021-06-20] MEDS ORDERED: SODIUM CHLORIDE 0.9% 1,000 ML IV STA (13:37)
[2021-06-20] MEDS ORDERED: PANTOPRAZOLE 40 MG/10 ML VIAL IVP STA (13:37)
--- NOTE | 2021-06-20 13:44 | ED ---
Abdominal Pain HPI - General Chief Complaint: Abdominal Pain Stated Complaint: and pain Time Seen by Provider: 06/20/21 13:28 Source: EMS Mode of arrival: EMS Limitations: no limitations - History of Present Illness Initial Comments: This 80-year-old female presents with a complaint of some diffuse abdominal pain. She states that it is been present for approximately one week. Her abdomen feels distended. She states that she has had episodes of nausea and vomiting. This seems to occur after she attempts to eat. She states that she has dry heaves. She also complains of constipation but had a soft bowel movement was prior to arrival. She denies any fevers or chills. He states that she has had previous abdominal pain symptoms and has an umbilical hernia. She also had an ultrasound and CAT scan this past spring that she cannot remember what these showed. No other complaints or modifying factors. She has had gallbladder surgery in the past but this was quite remote. She also has had 3 C-sections but denies any other abdominal surgeries. - Related Data Home Medications Medication Instructions Recorded Confirmed FLUoxetine HCL [PROzac] 40 mg PO DAILY 10/18/18 12/31/18 Metoprolol Tartrate [Lopressor] 50 mg PO BID 10/18/18 12/31/18 Oxybutynin Chloride [Ditropan] 5 mg PO BID 10/18/18 12/31/18 Acetaminophen Tab [Tylenol] 650 mg PO Q4H PRN 11/01/18 12/31/18 Calcium Carb-Vit D 500Mg-5Mcg 1 tab PO TID-W/MEALS 11/18/18 12/31/18 [Oscal 500+D 5 Mcg (200 Iu)] Cyanocobalamin [Vitamin B-12] 500 mcg PO DAILY 11/18/18 12/31/18 Ipratropium-Albuterol Nebulize 3 ml INHALATION RT-TID PRN 11/18/18 12/31/18 [Duoneb 0.5 mg-3 mg/3 ml Soln] Furosemide [Lasix] 20 mg PO BID 12/31/18 12/31/18 Potassium Chloride [K-Tab ER] 10 meq PO DAILY 12/31/18 12/31/18 Previous Rx's Medication Instructions Recorded Pregabalin [Lyrica] 75 mg PO BID #6 cap 10/24/18 INSULIN ASPART (NovoLOG) [NovoLOG 0 unit SQ ACHS vial 11/21/18 (formulary)] Aspirin 81 mg PO DAILY chew 01/04/19 Atorvastatin [Lipitor] 20 mg PO HS #30 tab 01/04/19 Doxycycline [Vibramycin] 100 mg PO BID #14 cap 01/04/19 Ferrous Sulfate [Iron (65 MG 325 mg PO DAILY #30 tab 01/04/19 Elemental)] Allergies Allergy/AdvReac Type Severity Reaction Status Date / Time codeine AdvReac Nausea & Verified 06/20/21 13:13 Vomiting Review of Systems ROS Statement: Those systems with pertinent positive or pertinent negative responses have been documented in the HPI. ROS Other: All systems not noted in ROS Statement are negative. Past Medical History Past Medical History: Heart Failure, Diabetes Mellitus, Hyperlipidemia, Hypertension, Osteoarthritis (OA) Additional Past Medical History / Comment(s): Previously at [facility] for rehab about 6-8 weeks ago History of Any Multi-Drug Resistant Organisms: MRSA Date of last positivie culture/infection: 11/18/18 MDRO Source:: URINE MRSA Past Surgical History: Section, Cholecystectomy Additional Past Surgical History / Comment(s): Bilateral cataract removals/lens implants, wrist surgery Past Anesthesia/Blood Transfusion Reactions: No Reported Reaction Additional Past Anesthesia/Blood Transfusion Reaction / Comment(s): Pt recieved blood in past without reaction (after childbirth) Past Psychological History: Anxiety Smoking Status: Never smoker Past Alcohol Use History: None Reported Past Drug Use History: None Reported - Past Family History Father Additional Family Medical History / Comment(s): Father from an industrial exposure at the age of 42 yrs. Mother Family Medical History: No Reported History Additional Family Medical History / Comment(s): Mother lived to be 95 yrs old. General Exam - General Exam Comments Initial Comments: GENERAL: The patient is well nourished and well hydrated. VITAL SIGNS: Heart rate, blood pressure, respiratory rate reviewed as recorded in nurse's notes. EYES: Pupils are round and reactive. Extraocular movements are intact. No conjunctival / lid redness or swelling. ENT: No external evidence of injury, swelling, or ecchymosis. Airway is patent. Throat is clear. NECK: Nontender. No swelling or evidence of injury. No subcutaneous emphysema. Trachea is midline. No thyroid mass. HEART: Regular rate and rhythm. Good peripheral pulses. LUNGS/CHEST: Breath sounds clear and equal bilaterally. No rales, rhonchi, or wheezes. No ecchymosis, subcutaneous emphysema, or tenderness. ABDOMEN: There is diffuse abdominal tenderness and distention. There is evidence of a reducible umbilical hernia. No palpable masses or organomegaly. No peritoneal signs. No abdominal wall swelling or ecchymosis. EXTREMITIES: No extremity tenderness. Normal muscle tone and function. No thoracolumbar tenderness. NEUROLOGIC: Sensation is grossly intact. Cranial nerve exam reveals face is symmetrical, tongue is midline, speech is clear. SKIN: No abrasions or ecchymosis is noted. No induration or masses noted. PSYCHIATRIC: Alert and oriented. Appropriate behavior and judgment. Limitations: no limitations Course Vital Signs 06/20/21 06/20/21 13:06 14:37 Temperature 98.2 F Pulse Rate 66 67 Respiratory 18 18 Rate Blood Pressure 140/58 135/72 O2 Sat by Pulse 100 97 Oximetry Medical Decision Making - Medical Decision Making The patient was seen and examined. Old records were reviewed. She had a scan of her abdomen and pelvis is past spring which did show evidence of an umbilical hernia and diverticulosis and enlarged uterus recommending ultrasound. Ultrasound was done of the pelvis which did not show any overt significant abnormalities. Please see report for details. She also received Zofran and pantoprazole intravenously. Urinalysis shows evidence of urinary tract infection. Laboratory shows a significantly elevated white blood cell count at 25,000 as well as acute kidney injury. Case is discussed with the radiologist and he relates the patient has some high-grade bowel obstruction at the sigmoid colon juncture. This potentially could be related to adhesions. He also notes possible pneumatosis intestinalis and is potentially worried about ischemic bowel. Patient refuses any pain medications. The case is discussed with Dr. Bailey from general surgery and he evaluates the patient in the emergency department and feels as though she will require surgery this afternoon/evening. The patient is admitted to the hospital for further treatment. Zosyn is initiated for urinary tract infection. Lactic acid is slightly elevated at 2.5. Patient is further hydrated as well. She receives 1 L of fluids but more aggressive hydration is not attempted due to history of congestive heart mami lure. Patient is agreeable with this plan. Medicine is consulted for medical management. - Lab Data Result diagrams: 06/20/21 13:40 06/20/21 13:40 Lab Results 06/20/21 06/20/21 06/20/21 Range/Units 13:29 13:40 13:40 WBC 25.3 H (3.8-10.6) k/uL RBC 4.23 (3.80-5.40) m/uL Hgb 13.4 (11.4-16.0) gm/dL Hct 41.9 (34.0-46.0) % MCV 99.0 (80.0-100.0) fL MCH 31.7 (25.0-35.0) pg MCHC 32.0 (31.0-37.0) g/dL RDW 12.1 (11.5-15.5) % Plt Count 367 (150-450) k/uL MPV 8.1 Neutrophils % 88 % Lymphocytes % 6 % Monocytes % 4 % Eosinophils % 1 % Basophils % 0 % Neutrophils # 22.3 H (1.3-7.7) k/uL Lymphocytes # 1.6 (1.0-4.8) k/uL Monocytes # 1.1 H (0-1.0) k/uL Eosinophils # 0.1 (0-0.7) k/uL Basophils # 0.1 (0-0.2) k/uL PT 10.5 (9.0-12.0) sec INR 1.0 (<1.2) APTT 21.2 L (22.0-30.0) sec Sodium (137-145) mmol/L Potassium (3.5-5.1) mmol/L Chloride (98-107) mmol/L Carbon Dioxide (22-30) mmol/L Anion Gap mmol/L BUN (7-17) mg/dL Creatinine (0.52-1.04) mg/dL Est GFR (CKD-EPI)AfAm (>60 ml/min/1.73 sqM) Est GFR (CKD-EPI)NonAf (>60 ml/min/1.73 sqM) Glucose (74-99) mg/dL Plasma Lactic Acid Jeff (0.7-2.0) mmol/L Calcium (8.4-10.2) mg/dL Total Bilirubin (0.2-1.3) mg/dL AST (14-36) U/L ALT (4-34) U/L Alkaline Phosphatase (38-126) U/L Total Protein (6.3-8.2) g/dL Albumin (3.5-5.0) g/dL Lipase (23-300) U/L Urine Color Yellow Urine Appearance Turbid H (Clear) Urine pH 7.0 (5.0-8.0) Ur Specific [place] 1.017 (1.001-1.035) Urine Protein 2+ H (Negative) Urine Glucose (UA) Negative (Negative) Urine Ketones Negative (Negative) Urine Blood Trace H (Negative) Urine Nitrite Negative (Negative) Urine Bilirubin Negative (Negative) Urine Urobilinogen <2.0 (<2.0) mg/dL Ur Leukocyte Esterase Large H (Negative) Urine RBC 3 (0-5) /hpf Urine WBC >182 H (0-5) /hpf Urine WBC Clumps Few H (None) /hpf Ur Squamous Epith Cells 1 (0-4) /hpf Urine Bacteria Moderate H (None) /hpf Urine Mucus Moderate H (None) /hpf 06/20/21 06/20/21 Range/Units 13:40 13:40 WBC (3.8-10.6) k/uL RBC (3.80-5.40) m/uL Hgb (11.4-16.0) gm/dL Hct (34.0-46.0) % MCV (80.0-100.0) fL MCH (25.0-35.0) pg MCHC (31.0-37.0) g/dL RDW (11.5-15.5) % Plt Count (150-450) k/uL MPV Neutrophils % % Lymphocytes % % Monocytes % % Eosinophils % % Basophils % % Neutrophils # (1.3-7.7) k/uL Lymphocytes # (1.0-4.8) k/uL Monocytes # (0-1.0) k/uL Eosinophils # (0-0.7) k/uL Basophils # (0-0.2) k/uL PT (9.0-12.0) sec INR (<1.2) APTT (22.0-30.0) sec Sodium 134 L (137-145) mmol/L Potassium 5.3 H (3.5-5.1) mmol/L Chloride 96 L (98-107) mmol/L Carbon Dioxide 25 (22-30) mmol/L Anion Gap 13 mmol/L BUN 60 H (7-17) mg/dL Creatinine 2.88 H (0.52-1.04) mg/dL Est GFR (CKD-EPI)AfAm 17 (>60 ml/min/1.73 sqM) Est GFR (CKD-EPI)NonAf 15 (>60 ml/min/1.73 sqM) Glucose 180 H (74-99) mg/dL Plasma Lactic Acid Jeff 2.5 H* (0.7-2.0) mmol/L Calcium 9.6 (8.4-10.2) mg/dL Total Bilirubin 0.7 (0.2-1.3) mg/dL AST 20 (14-36) U/L ALT 12 (4-34) U/L Alkaline Phosphatase 194 H (38-126) U/L Total Protein 6.9 (6.3-8.2) g/dL Albumin 3.4 L (3.5-5.0) g/dL Lipase 20 L (23-300) U/L Urine Color Urine Appearance (Clear) Urine pH (5.0-8.0) Ur Specific [place] (1.001-1.035) Urine Protein (Negative) Urine Glucose (UA) (Negative) Urine Ketones (Negative) Urine Blood (Negative) Urine Nitrite (Negative) Urine Bilirubin (Negative) Urine Urobilinogen (<2.0) mg/dL Ur Leukocyte Esterase (Negative) Urine RBC (0-5) /hpf Urine WBC (0-5) /hpf Urine WBC Clumps (None) /hpf Ur Squamous Epith Cells (0-4) /hpf Urine Bacteria (None) /hpf Urine Mucus (None) /hpf Disposition Clinical Impression: Acute abdominal pain, Nausea and vomiting, Constipation, Diverticulosis, Umbilical hernia, Diabetes, Leukocytosis, Bowel obstruction, Pneumatosis intestinalis, UTI (urinary tract infection), PETE (acute kidney injury) Disposition: ADMITTED IP TO THIS HOSP Condition: Serious Is patient prescribed a controlled substance at d/c from ED?: No Referrals: Eugenia Sanchez MD [Primary Care Provider] - 1-2 days Time of Disposition: 15:15 Decision Date: 06/20/21 Decision Time: 15:15
[2021-06-20 13:59] LABS: Basophils # (A) 0.1 k/uL (0-0.2); Basophils % (A) 0 %; Eosinophils # (A) 0.1 k/uL (0-0.7); Eosinophils % (A) 1 %; HCT 41.9 % (34.0-46.0); HGB 13.4 gm/dL (11.4-16.0); Lymphocytes # (A) 1.6 k/uL (1.0-4.8); Lymphocytes % (A) 6 %; MCH 31.7 pg (25.0-35.0); Mean Platelet Volume 8.1; Monocytes # (A) 1.1 k/uL (0-1.0); Monocytes % (A) 4 %; Neutrophils # (A) 22.3 k/uL (1.3-7.7); Neutrophils % (A) 88 %; Platelet Count 367 k/uL (150-450); RBC 4.23 m/uL (3.80-5.40); RDW 12.1 % (11.5-15.5); WBC 25.3 k/uL (3.8-10.6)
[2021-06-20 14:00] LABS: Appearance,Urine Turbid (Clear); Bacteria,Urine Moderate /hpf; Bilirubin,Urine Negative (Negative); Blood,Urine Trace (Negative); Color,Urine Yellow; Glucose,Urine (UA) Negative (Negative); Ketones,Urine Negative (Negative); Leukocyte Esterase,Urine Large (Negative); Mucus,Urine Moderate /hpf; Nitrite,Urine Negative (Negative); Protein,Urine 2+ (Negative); RBC,Urine 3 /hpf (0-5); Specific Gravity,Urine 1.017 (1.001-1.035); Squamous Epithelial Cell,Urine 1 /hpf (0-4); Urobilinogen,Urine <2.0 mg/dL (<2.0); WBC,Urine >182 /hpf (0-5)
[2021-06-20 14:19] LABS: Prothrombin Time 10.5 sec (9.0-12.0)
[2021-06-20 14:20] LABS: Albumin 3.4 g/dL (3.5-5.0); Calcium 9.6 mg/dL (8.4-10.2); Potassium 5.3 mmol/L (3.5-5.1); Total Bilirubin 0.7 mg/dL (0.2-1.3); Total Protein 6.9 g/dL (6.3-8.2)
[2021-06-20 14:23] LABS: Partial Thromboplastin Time 21.2 sec (22.0-30.0)
[2021-06-20] MEDS ORDERED: PIPERACILLIN-TAZOBACTAM 3.375 GM in SODIUM CHLORIDE 0.9% 100 ML IVPB STA (15:03)
[2021-06-20] MEDS ORDERED: SODIUM CHLORIDE 0.9% 500 ML IV STA ×2 (15:11→15:27)
--- NOTE | 2021-06-20 15:14 | CT ---
EXAMINATION TYPE: CT abdomen pelvis wo con DATE OF EXAM: 06/20/2021 COMPARISON: HISTORY: Abdominal pain. CT DLP: 750 mGycm Automated exposure control for dose reduction was used. TECHNIQUE: Helical acquisition of images was performed from the lung bases through the pelvis. FINDINGS: LUNG BASES: Calcified nodules in the lungs are suggestive of granuloma. There are additional noncalci fied nodules in the lungs one of which measures approximately 7 mm in the anterior segment right lowe r lobe. Aorta of normal caliber with atherosclerotic changes. Fat-containing periumbilical hernia.. LIVER/GB: Postcholecystectomy changes.. PANCREAS: No significant abnormality is seen. SPLEEN: No significant abnormality is seen. ADRENALS: No significant abnormality is seen. KIDNEYS: No significant abnormality is seen. ADENOPATHY: None visualized. OSSEOUS STRUCTURES: Hypertrophic and degenerative changes of the spine with facet arthropathy.. BOWEL: There is marked dilation of the colon to the level the sigmoid colon where there appears to b e a caliber change noted on axial image 65. Obstructing lesion, volvulus or adhesion in the different ial diagnosis. There also appears to be lucencies in the wall of the colon suggestive of pneumatosis correlate for ischemic bowel. Small hiatal hernia. OTHER: Prominence of the adnexal region could not exclude an ovarian lesion correlate with pelvic ult rasound. No free fluid. No free air. IMPRESSION: 1. Markedly dilated colonic loops to level the sigmoid colon with a caliber change. Differential diag nosis would include a obstructing lesion, adhesion or less likely volvulus. Does appear to be air wit hin the bowel wall suspicious for pneumatosis intestinalis correlate for ischemic bowel. 2. Calcified nodules in the lungs as well is lymph nodes with additional hepatic and splenic granulom a. 3. Noncalcified nodule measuring 7 mm anterior segment right lower lobe. Slightly irregular margins. Could not exclude a malignant neoplasm given the suggestion of spiculation correlate clinically. 4. Abnormal soft tissue attenuation in the right adnexa measuring 3.5 cm correlate for a ovarian lesi on areas correlate with CA 125 and Ova 1study.
[2021-06-20] MEDS ORDERED: NALOXONE 0.4 MG/ML 1 ML VIAL IV PRN (15:39)
[2021-06-20] MEDS ORDERED: MORPHINE SULFATE 4 MG/ML SYRINGE IV PRN (15:39)
[2021-06-20] MEDS ORDERED: ACETAMINOPHEN TAB 325 MG TAB PO PRN (15:39)
--- NOTE | 2021-06-20 15:47 | P.GSHP ---
History of Present Illness H&P Date: 06/20/21 Chief Complaint: Bowel obstruction 80-year-old female comes in the hospital with complaints of right-sided abdominal pain. Pain increasing over the last week or so. She has had episodes of vomiting. Appetite is diminished. Pain aggravated by eating. Patient has not had a colonoscopy. Since she had a bowel movement today. Some decrease overall and amount of bowel function however. Was found to have significant leukocytosis on arrival with a 25,000 white count. Lactic acid is elevated. CAT scan was obtained and reviewed. CAT scan shows significant colonic dist ention with evidence of right sided ischemic changes and pneumatosis intestinalis. Transition point seems to be in the sigmoid colon. No definite mass lesion there. Denies rectal bleeding or melena. She is afebrile. - Review of Systems Comment: The patient denies any acute changes in vision or hearing, no dysphagia or odynophagia, no chest pain or shortness of breath, no dysuria or hematuria, no headache, no runny nose, no rectal bleeding or melena, no unexplained weight loss Past Medical History Past Medical History: Heart Failure, Diabetes Mellitus, Hyperlipidemia, Hypertension, Osteoarthritis (OA) Additional Past Medical History / Comment(s): Previously at [facility] for rehab about 6-8 weeks ago History of Any Multi-Drug Resistant Organisms: MRSA Date of last positivie culture/infection: 11/18/18 MDRO Source:: URINE MRSA Past Surgical History: Section, Cholecystectomy Additional Past Surgical History / Comment(s): Bilateral cataract removals/lens implants, wrist surgery Past Anesthesia/Blood Transfusion Reactions: No Reported Reaction Additional Past Anesthesia/Blood Transfusion Reaction / Comment(s): Pt recieved blood in past without reaction (after childbirth) Past Psychological History: Anxiety Smoking Status: Never smoker Past Alcohol Use History: None Reported Past Drug Use History: None Reported - Past Family History Father Additional Family Medical History / Comment(s): Father from an industrial exposure at the age of 42 yrs. Mother Family Medical History: No Reported History Additional Family Medical History / Comment(s): Mother lived to be 95 yrs old. Medications and Allergies Home Medications Medication Instructions Recorded Confirmed Type FLUoxetine HCL [PROzac] 40 mg PO DAILY 10/18/18 12/31/18 History Metoprolol Tartrate [Lopressor] 50 mg PO BID 10/18/18 12/31/18 History Oxybutynin Chloride [Ditropan] 5 mg PO BID 10/18/18 12/31/18 History Pregabalin [Lyrica] 75 mg PO BID #6 cap 10/24/18 12/31/18 Rx Acetaminophen Tab [Tylenol] 650 mg PO Q4H PRN 11/01/18 12/31/18 History Calcium Carb-Vit D 500Mg-5Mcg 1 tab PO TID-W/MEALS 11/18/18 12/31/18 History [Oscal 500+D 5 Mcg (200 Iu)] Cyanocobalamin [Vitamin B-12] 500 mcg PO DAILY 11/18/18 12/31/18 History Ipratropium-Albuterol Nebulize 3 ml INHALATION RT-TID PRN 11/18/18 12/31/18 History [Duoneb 0.5 mg-3 mg/3 ml Soln] INSULIN ASPART (NovoLOG) [NovoLOG 0 unit SQ ACHS vial 11/21/18 12/31/18 Rx (formulary)] Furosemide [Lasix] 20 mg PO BID 12/31/18 12/31/18 History Potassium Chloride [K-Tab ER] 10 meq PO DAILY 12/31/18 12/31/18 History Aspirin 81 mg PO DAILY chew 01/04/19 Rx Atorvastatin [Lipitor] 20 mg PO HS #30 tab 01/04/19 Rx Doxycycline [Vibramycin] 100 mg PO BID #14 cap 01/04/19 Rx Ferrous Sulfate [Iron (65 MG 325 mg PO DAILY #30 tab 01/04/19 Rx Elemental)] Allergies Allergy/AdvReac Type Severity Reaction Status Date / Time codeine AdvReac Nausea & Verified 06/20/21 13:13 Vomiting Surgical - Exam Vital Signs Temp Pulse Resp BP Pulse Ox 98.2 F 66 18 140/58 100 06/20/21 13:06 06/20/21 13:06 06/20/21 13:06 06/20/21 13:06 06/20/21 13:06 Physical exam: General: Well-developed, well-nourished HEENT: Normocephalic, sclerae nonicteric Abdomen: Diffusely tender, increased tenderness right side of abdomen, distended with tympany Extremities: No edema Neuro: Alert and oriented Results - Labs 06/20/21 13:40 06/20/21 13:40 Abnormal Lab Results - Last 24 Hours (Table) 06/20/21 06/20/21 06/20/21 Range/Units 13:29 13:40 13:40 WBC 25.3 H (3.8-10.6) k/uL Neutrophils # 22.3 H (1.3-7.7) k/uL Monocytes # 1.1 H (0-1.0) k/uL APTT 21.2 L (22.0-30.0) sec Sodium (137-145) mmol/L Potassium (3.5-5.1) mmol/L Chloride (98-107) mmol/L BUN (7-17) mg/dL Creatinine (0.52-1.04) mg/dL Glucose (74-99) mg/dL Plasma Lactic Acid Jeff (0.7-2.0) mmol/L Alkaline Phosphatase (38-126) U/L Albumin (3.5-5.0) g/dL Lipase (23-300) U/L Urine Appearance Turbid H (Clear) Urine Protein 2+ H (Negative) Urine Blood Trace H (Negative) Ur Leukocyte Esterase Large H (Negative) Urine WBC >182 H (0-5) /hpf Urine WBC Clumps Few H (None) /hpf Urine Bacteria Moderate H (None) /hpf Urine Mucus Moderate H (None) /hpf 06/20/21 06/20/21 Range/Units 13:40 13:40 WBC (3.8-10.6) k/uL Neutrophils # (1.3-7.7) k/uL Monocytes # (0-1.0) k/uL APTT (22.0-30.0) sec Sodium 134 L (137-145) mmol/L Potassium 5.3 H (3.5-5.1) mmol/L Chloride 96 L (98-107) mmol/L BUN 60 H (7-17) mg/dL Creatinine 2.88 H (0.52-1.04) mg/dL Glucose 180 H (74-99) mg/dL Plasma Lactic Acid Jeff 2.5 H* (0.7-2.0) mmol/L Alkaline Phosphatase 194 H (38-126) U/L Albumin 3.4 L (3.5-5.0) g/dL Lipase 20 L (23-300) U/L Urine Appearance (Clear) Urine Protein (Negative) Urine Blood (Negative) Ur Leukocyte Esterase (Negative) Urine WBC (0-5) /hpf Urine WBC Clumps (None) /hpf Urine Bacteria (None) /hpf Urine Mucus (None) /hpf Diabetes panel 06/20/21 Range/Units 13:40 Sodium 134 L (137-145) mmol/L Potassium 5.3 H (3.5-5.1) mmol/L Chloride 96 L (98-107) mmol/L Carbon Dioxide 25 (22-30) mmol/L BUN 60 H (7-17) mg/dL Creatinine 2.88 H (0.52-1.04) mg/dL Glucose 180 H (74-99) mg/dL Calcium 9.6 (8.4-10.2) mg/dL AST 20 (14-36) U/L ALT 12 (4-34) U/L Alkaline Phosphatase 194 H (38-126) U/L Total Protein 6.9 (6.3-8.2) g/dL Albumin 3.4 L (3.5-5.0) g/dL Calcium panel 06/20/21 Range/Units 13:40 Calcium 9.6 (8.4-10.2) mg/dL Albumin 3.4 L (3.5-5.0) g/dL Pituitary panel 06/20/21 Range/Units 13:40 Sodium 134 L (137-145) mmol/L Potassium 5.3 H (3.5-5.1) mmol/L Chloride 96 L (98-107) mmol/L Carbon Dioxide 25 (22-30) mmol/L BUN 60 H (7-17) mg/dL Creatinine 2.88 H (0.52-1.04) mg/dL Glucose 180 H (74-99) mg/dL Calcium 9.6 (8.4-10.2) mg/dL Adrenal panel 06/20/21 Range/Units 13:40 Sodium 134 L (137-145) mmol/L Potassium 5.3 H (3.5-5.1) mmol/L Chloride 96 L (98-107) mmol/L Carbon Dioxide 25 (22-30) mmol/L BUN 60 H (7-17) mg/dL Creatinine 2.88 H (0.52-1.04) mg/dL Glucose 180 H (74-99) mg/dL Calcium 9.6 (8.4-10.2) mg/dL Total Bilirubin 0.7 (0.2-1.3) mg/dL AST 20 (14-36) U/L ALT 12 (4-34) U/L Alkaline Phosphatase 194 H (38-126) U/L Total Protein 6.9 (6.3-8.2) g/dL Albumin 3.4 L (3.5-5.0) g/dL Assessment and Plan (1) Pneumatosis intestinalis Narrative/Plan: 80-year-old female with colonic obstruction leading to cecal dilation and subsequent ischemic changes by CAT scan. Patient's examination and laboratory studies also support that diagnosis. Findings discussed with patient and also her son by phone. We'll proceed with exploratory laparotomy with partial colectomy and plans for end ileostomy with mucous fistula at this time. Risks of bleeding, infection, bladder bowel and ureteral injury, hernia, sepsis, respiratory cardiac complications, ventilatory dependence reviewed. She understands and wishes to proceed. Current Visit: Yes Status: Acute Code(s): K63.89 - OTHER SPECIFIED DISEASES OF INTESTINE SNOMED Code(s): 80435058
[2021-06-20] MEDS ORDERED: LIDOCAINE 1% INJ 10MG/ML (20 ML MDV) ONE ×2 (17:40→18:03)
[2021-06-20] MEDS ORDERED: ALBUTEROL NEBULIZED 2.5 MG/3 ML INHALATION ONE ×2 (17:47→17:53)
[2021-06-20 17:56] LABS: Glucose,Whole Blood 113 mg/dL (75-99)
[2021-06-20] MEDS ORDERED: PHENYLEPHRINE-0.9% NACL SYG 1,000 MCG/10 ML SYRINGE ONE (18:03)
[2021-06-20] MEDS ORDERED: HYDROmorphone (PF) 1 MG/ML ONE (18:03)
[2021-06-20] MEDS ORDERED: .fentaNYL (PF) 50 MCG/ML AMP ONE (18:03)
[2021-06-20] MEDS ORDERED: SUCCINYLCHOLINE CHLORIDE 100 MG/5 ML SYR IV ONE (18:03)
[2021-06-20] MEDS ORDERED: SODIUM CHLORIDE 0.9% 1,000 ML IV ONE ×2 (18:03→18:42)
[2021-06-20] MEDS ORDERED: ROCURONIUM 10 MG/ML (5 ML VIAL) IV ONE (18:03)
[2021-06-20] MEDS ORDERED: ETOMIDATE 2 MG/ML 10 ML VIAL ONE (18:03)
--- NOTE | 2021-06-20 20:50 | P.OP ---
Date of Procedure: 06/20/21 Procedure(s) Performed: PREOPERATIVE DIAGNOSIS: Colon obstruction with pneumatosis right colon, umbilical hernia POSTOPERATIVE DIAGNOSIS: Same PROCEDURE: Exploratory laparotomy with right colectomy, end ileostomy, mucous fistula, repair umbilical hernia SURGEON: Leo EBL: 50ML ANESTHESIA: General COMPLICATIONS: None OPERATIVE PROCEDURE: Placement placed in the operating table in the supine position. The patient was placed under general anesthesia. Abdomen was then prepped and draped sterilely. Midline incision made using the scalpel. Dissection through the subcutaneous tissues and fascia took place using electrocautery. Entrance into the peritoneal cavity occurred. We entered into the patient's hernia defect at the umbilicus. The hernia sac was later excised. The hernia was closed with the remainder of the fascia through the midline incision. Bookwalter retractor was utilized. Patient's colon was markedly distended. There was some ischemic changes to the cecum. A colotomy was made in the mid transverse colon. The air and liquid stool was evacuated. Approximately 800 mL of liquid stool was removed in addition to a large volume of air. I later removed another 200 mL or so from the cecum as it was still distended. The etiology for the patient's obstruction appeared most consistent with a gynecologic malignancy. The patient's uterus was larger than anticipated with some nodularity. It appeared to be adherent to the distal sigmoid colon. There was a small bowel loop that was likewise adherent to that area that was mobilized using sharp dissection. I divided the bowel just proximal to the serosal adhesion. The mesentery of the terminal ileum was divided using Liga Sure. The right colon and hepatic flexure were mobilized by incising the peritoneum. The white line of Toldt was incised as well. The mesentery of the cecum and ascending colon was brought medially. The duodenum was carefully preserved and no cautery was used adjacent to the duodenum. The transverse colon was then divided using a linear 75 stapler. Mesentery of the transverse colon and ascending colon cecum and terminal ileum was then divided using a combination of 0 silk ties and the LigaSure device. Specimen was passed off at that point. The area was irrigated. No bleeding was seen. A circular incision was made in the right mid abdomen. Dissection through the subcutaneous fat and fascia took place using electrocautery. The ileum was brought out through this opening. This was later matured in a yurok fashion using interrupted 3-0 Vicryl sutures. This was an end ileostomy. A smaller incision was made in the left mid to upper quadrant. Again the subcutaneous fat and fascia were divided using electrocautery. The corner of the transverse colon was brought up to the skin level and sutured in place using interrupted 3-0 GI silk sutures later after closure of the fascia took place. The midline fascia was then reapproximated using 3 separate double-stranded looped PDS sutures. The umbilical hernia fascial defect was incorporated into the midline fascial closure. The subcutaneous tissues were closed using 3-0 Vicryl sutures. The skin was closed using kaelyn. Sterile dressings were applied. After the ostomies were matured ostomy appliances were placed. At the end of this procedure the sponge needle and ensure counts were correct. DISPOSITION: Guarded to the ICU
[2021-06-20] MEDS ORDERED: HYDROmorphone 0.5 MG/0.5 ML SYRINGE IVP ONE ×3 (21:17→21:41)
[2021-06-20 21:26] LABS: Glucose,Whole Blood 115 mg/dL (75-99)
[2021-06-20 22:12] LABS: Glucose,Whole Blood 124 mg/dL (75-99)
[2021-06-20] MEDS: D5-0.45% NACL WITH KCL 20MEQ/L 1,000 ML IV SCH (22:15)
--- NOTE | 2021-06-20 22:39 | P.CONS ---
History of Present Illness - Reason for Consult Consult date: 06/20/21 Medical management, abdominal pain, bowel obstruction. Requesting physician: Arash Bailey - History of Present Illness HISTORY OF PRESENT ILLNESS 80-year-old female one of Dr. Sanchez's patient with past medical history of CAD, hypertension, hyperlipidemia, recurrent urinary tract infection who presented to [facility] today after an episode of increase abdominal pain and distention specially in the right side with worsening nausea and vomiting with significant decrease in appetite has not had much to eat or drink. The time was seen to have significant leukocytosis with white blood cell 25,000 mild elevated lactic acid. CAT scan of the abdomen showed significant colonic distention with evidence of right-sided ischemic change with pneumatosis intestinalis. Patient started looking more toxic at this point. Patient was seen Dr. gipson and was taking from the emergency department to the OR for partial resection in the having exploratory laparotomy with right sided colectomy and end ileostomy with mucous fistula repair. Umbilical hernia. She was started on Zosyn, pain management, IV resuscitation along with DVT prophylaxis and admitted to the ICU after surgery. REVIEW OF SYSTEMS Constitutional: No fever, no chills, no night sweats. No weight change. No weakness, fatigue or lethargy. No daytime sleepiness. Slightly confused does not look in any respiratory distress. EENT: No headache. No blurred vision or double vision, no loss of vision. No loss of Hearing, no ringing in the ears, no dizziness. No nasal drainage or congestion. No epistaxis. No sore throat. Lungs: No shortness of breath, cough, no sputum production. No wheezing. Cardiovascular: Mild PND and orthopnea and no chest pain slight edema of the lower extremity mild palpitation with exertion. Abdominal: Significant distention with mild abdominal discomfort more than pain with significant nausea vomiting positive an episode of large bowel movement at the time with no blood in it. Significant decrease in appetite. Genitourinary: No dysuria, increased frequency, urgency. No urinary retention. Decrease urine output. Musculoskeletal: No myalgias. No muscle weakness, no gait dysfunction, no frequent falls. No back pain. No neck pain. Integumentary: No wounds, no lesions. No rash or pruritus. No unusual bruising. No change in hair or nails. Neurologic: No motor deficit visualized weakness had slight change mental status. Psychiatric: No depression. No anxiety. No mood swings. Endocrine: No abnormal blood sugars. No weight change. No excessive sweating or thirst. No cold intolerance. SOCIAL HISTORY No smoking, no alcohol abuse, she has been in a senior housing in long term. FAMILY HISTORY Positive for CAD father from industrial explosion at age 42. PHYSICAL EXAMINATION Gen: This is an elderly laying in bed with significant abdominal distention with slight nausea at the time. HEENT: Head is atraumatic, normocephalic. Pupils equal, round. Sclerae is anicteric. NECK: Supple. No JVD. No lymphadenopathy. No thyromegaly. LUNGS: Decreased breath some bilateral rhonchi and mild expiratory wheezes. HEART: Regular rate and rhythm. Mild tachycardia. ABDOMEN: Significant distention with slight abdominal tenderness with no rebound or rigidity. Decrease in bowel sounds. EXTREMITIES: No pedal edema. No calf tenderness. NEUROLOGICAL: Patient is awake, alert with slight confusion. Cranial nerves 2 through 12 are grossly intact. ASSESSMENT AND PLAN 1. Abdominal pain: Most likely from ischemic colitis with slight early perforation, patient will be hospitalized going for surgery continue NG tube pain management of fluid resuscitation. 2 pneumatosis intestinalis: Patient be going for surgery might require to have ileostomy. 3 bowel obstruction: Most likely caused by pneumatosis intestinalis along with ischemic colitis: Will be going for exploratory surgery correction. 4 history of congestive heart failure: Has been on metoprolol, furosemide and fluid restriction. 5 type 2 diabetes: Has been on NovoLog continue Accu-Chek sliding scales coverage for now hold off on any long-acting insulin. 6 acute kidney injury with chronic kidney disease: With creatinine much worse at this point continue hydration repeat CMP. 7 chronic neuropathy: Has been on Lyrica 75 mg twice a day. 8 hyperlipidemia: We'll continue patient on Lipitor 20 mg daily. 9 chronic edema: Remain on diuretics. 10 COPD: Continue DuoNeb and if needed will add Pulmicort. 11 DVT prophylaxis: Patient will be on heparin subcutaneous or Lovenox. 12 GI prophylaxis: Patient be on pantoprazole IV. 11. COVID-19 testing, was negative CODE STATUS: Full code. Patient will be admitted to the hospital for a minimum of 2 night stay. Past Medical History Past Medical History: Heart Failure, Diabetes Mellitus, Hyperlipidemia, Hypertension, Osteoarthritis (OA) Additional Past Medical History / Comment(s): Previously at [facility] for rehab about 6-8 weeks ago History of Any Multi-Drug Resistant Organisms: MRSA Year Discovered:: 11/18/18 MDRO Source:: URINE MRSA Past Surgical History: Section, Cholecystectomy Additional Past Surgical History / Comment(s): Bilateral cataract removals/lens implants, wrist surgery Past Anesthesia/Blood Transfusion Reactions: No Reported Reaction Additional Past Anesthesia/Blood Transfusion Reaction / Comm: Pt recieved blood in past without reaction (after childbirth) Past Psychological History: Anxiety Smoking Status: Never smoker Past Alcohol Use History: None Reported Past Drug Use History: None Reported - Past Family History Father Additional Family Medical History / Comment(s): Father from an industrial exposure at the age of 42 yrs. Mother Family Medical History: No Reported History Additional Family Medical History / Comment(s): Mother lived to be 95 yrs old. Medications and Allergies Home Medications Medication Instructions Recorded Confirmed Type FLUoxetine HCL [PROzac] 40 mg PO DAILY 10/18/18 06/20/21 History Metoprolol Tartrate [Lopressor] 50 mg PO BID-W/MEALS 10/18/18 06/20/21 History Oxybutynin Chloride [Ditropan] 5 mg PO DAILY 10/18/18 06/20/21 History Furosemide [Lasix] 20 mg PO DAILY 12/31/18 06/20/21 History Acetaminophen [Tylenol Extra 1,000 mg PO BID 06/20/21 06/20/21 History Strength] Calcium Acetate [Phoslo] 667 mg PO TID 06/20/21 06/20/21 History Insulin Lispro Protamin/Lispro 12 unit SQ AC-BRKFST 06/20/21 06/20/21 History [humaLOG Mix 75-25 Kwikpen] Insulin Lispro Protamin/Lispro 15 unit SQ AC-SUPPER 06/20/21 06/20/21 History [humaLOG Mix 75-25 Kwikpen] Losartan Potassium 50 mg PO DAILY 06/20/21 06/20/21 History Oxybutynin Chloride [Ditropan] 10 mg PO HS 06/20/21 06/20/21 History Pravastatin Sodium [Pravachol] 40 mg PO DAILY 06/20/21 06/20/21 History Vit Low Iron Tab 1 tab PO DAILY 06/20/21 06/20/21 History Allergies Allergy/AdvReac Type Severity Reaction Status Date / Time codeine AdvReac Nausea & Verified 06/20/21 16:31 Vomiting Physical Exam Vitals: Vital Signs Temp Pulse Pulse Resp BP BP BP 06/20/21 21:33 74 16 124/45 06/20/21 21:16 73 16 162/62 06/20/21 21:01 73 16 165/63 06/20/21 20:45 74 16 170/81 06/20/21 20:37 97.1 F L 73 16 173/64 147/70 06/20/21 16:00 98.9 F 67 18 147/81 06/20/21 14:37 67 18 135/72 06/20/21 13:06 98.2 F 66 18 140/58 BP Pulse Ox 06/20/21 21:33 127/61 100 06/20/21 21:16 174/73 100 06/20/21 21:01 168/88 100 06/20/21 20:45 170/84 100 06/20/21 20:37 97 06/20/21 16:00 95 06/20/21 14:37 97 06/20/21 13:06 100 Intake and Output 06/20/21 06/20/21 06/20/21 06:59 14:59 22:59 Intake Total 1500 Output Total 350 Balance 1150 Intake: IV 1500 Oral 0 Output: Urine 300 Estimated Blood Loss 50 Other: Weight 79.379 kg 79.379 kg Results CBC & Chem 7: 06/20/21 13:40 06/20/21 13:40 Labs: Abnormal Lab Results - Last 24 Hours (Table) 06/20/21 06/20/21 06/20/21 Range/Units 13:29 13:40 13:40 WBC 25.3 H (3.8-10.6) k/uL Neutrophils # 22.3 H (1.3-7.7) k/uL Monocytes # 1.1 H (0-1.0) k/uL APTT 21.2 L (22.0-30.0) sec Sodium (137-145) mmol/L Potassium (3.5-5.1) mmol/L Chloride (98-107) mmol/L BUN (7-17) mg/dL Creatinine (0.52-1.04) mg/dL Glucose (74-99) mg/dL POC Glucose (mg/dL) (75-99) mg/dL Plasma Lactic Acid Jeff (0.7-2.0) mmol/L Alkaline Phosphatase (38-126) U/L Albumin (3.5-5.0) g/dL Lipase (23-300) U/L Urine Appearance Turbid H (Clear) Urine Protein 2+ H (Negative) Urine Blood Trace H (Negative) Ur Leukocyte Esterase Large H (Negative) Urine WBC >182 H (0-5) /hpf Urine WBC Clumps Few H (None) /hpf Urine Bacteria Moderate H (None) /hpf Urine Mucus Moderate H (None) /hpf 06/20/21 06/20/21 06/20/21 Range/Units 13:40 13:40 17:54 WBC (3.8-10.6) k/uL Neutrophils # (1.3-7.7) k/uL Monocytes # (0-1.0) k/uL APTT (22.0-30.0) sec Sodium 134 L (137-145) mmol/L Potassium 5.3 H (3.5-5.1) mmol/L Chloride 96 L (98-107) mmol/L BUN 60 H (7-17) mg/dL Creatinine 2.88 H (0.52-1.04) mg/dL Glucose 180 H (74-99) mg/dL POC Glucose (mg/dL) 113 H (75-99) mg/dL Plasma Lactic Acid Jeff 2.5 H* (0.7-2.0) mmol/L Alkaline Phosphatase 194 H (38-126) U/L Albumin 3.4 L (3.5-5.0) g/dL Lipase 20 L (23-300) U/L Urine Appearance (Clear) Urine Protein (Negative) Urine Blood (Negative) Ur Leukocyte Esterase (Negative) Urine WBC (0-5) /hpf Urine WBC Clumps (None) /hpf Urine Bacteria (None) /hpf Urine Mucus (None) /hpf 06/20/21 Range/Units 21:24 WBC (3.8-10.6) k/uL Neutrophils # (1.3-7.7) k/uL Monocytes # (0-1.0) k/uL APTT (22.0-30.0) sec Sodium (137-145) mmol/L Potassium (3.5-5.1) mmol/L Chloride (98-107) mmol/L BUN (7-17) mg/dL Creatinine (0.52-1.04) mg/dL Glucose (74-99) mg/dL POC Glucose (mg/dL) 115 H (75-99) mg/dL Plasma Lactic Acid Jeff (0.7-2.0) mmol/L Alkaline Phosphatase (38-126) U/L Albumin (3.5-5.0) g/dL Lipase (23-300) U/L Urine Appearance (Clear) Urine Protein (Negative) Urine Blood (Negative) Ur Leukocyte Esterase (Negative) Urine WBC (0-5) /hpf Urine WBC Clumps (None) /hpf Urine Bacteria (None) /hpf Urine Mucus (None) /hpf Microbiology - Last 24 Hours (Table) 06/20/21 13:29 Urine Culture - Preliminary Urine,Catheterized
[2021-06-21] MEDS: HEPARIN SODIUM,PORCINE/PF 5,000 UNIT/0.5 ML SYRINGE SQ SCH ×4 (01:02→23:29)
[2021-06-21] MEDS: ACETAMINOPHEN IV (For NPO) 1,000 MG in EMPTY BAG 1 BAG IVPB SCH ×5 (01:02→23:30)
[2021-06-21 04:06] LABS: Basophils # (A) 0.1 k/uL (0-0.2); Basophils % (A) 0 %; Eosinophils % (A) 0 %; HCT 36.4 % (34.0-46.0); HGB 11.5 gm/dL (11.4-16.0); Lymphocytes # (A) 0.9 k/uL (1.0-4.8); Lymphocytes % (A) 4 %; MCH 32.3 pg (25.0-35.0); MCHC 31.6 g/dL (31.0-37.0); MCV 102.2 fL (80.0-100.0); Mean Platelet Volume 7.9; Monocytes # (A) 0.9 k/uL (0-1.0); Monocytes % (A) 4 %; Neutrophils # (A) 22.6 k/uL (1.3-7.7); Neutrophils % (A) 92 %; Platelet Count 294 k/uL (150-450); RBC 3.56 m/uL (3.80-5.40); RDW 12.1 % (11.5-15.5); WBC 24.7 k/uL (3.8-10.6)
[2021-06-21 04:13] LABS: Albumin 2.1 g/dL (3.5-5.0); Total Protein 4.9 g/dL (6.3-8.2)
[2021-06-21 04:16] LABS: Potassium 6.1 mmol/L (3.5-5.1)
[2021-06-21 04:27] LABS: Calcium 7.5 mg/dL (8.4-10.2); Total Bilirubin 0.4 mg/dL (0.2-1.3)
[2021-06-21] MEDS: D5-0.45% NACL WITH KCL 20MEQ/L 1,000 ML IV SCH ×2 (04:35→08:42)
[2021-06-21] MEDS ORDERED: SODIUM CHLORIDE 0.9% 1,000 ML IV ONE (04:39)
[2021-06-21] MEDS: PIPERACILLIN-TAZOBACTAM 3.375 GM in SODIUM CHLORIDE 0.9% 100 ML IVPB SCH ×2 (05:36→17:45)
[2021-06-21] MEDS: PANTOPRAZOLE 40 MG/10 ML VIAL IV SCH (08:39)
[2021-06-21] MEDS: HYDROmorphone 0.5 MG/0.5 ML SYRINGE IVP PRN ×5 (08:46→23:48)
[2021-06-21] MEDS ORDERED: IBUPROFEN 600 MG TAB PO PRN (10:19)
--- NOTE | 2021-06-21 10:21 | P.PN ---
Subjective Progress Note Date: 06/21/21 Principal diagnosis: Colon obstruction Patient complaining of pain this morning. Says it's related to her incision site. No nausea or vomiting. No significant ostomy function. White blood cell count remains elevated at 24.7. Potassium elevated at 6.1. Creatinine 2.6. Marginal urine output earlier. Improved. Objective - Vital Signs Vital signs: Vital Signs Temp 98.0 F 06/21/21 08:00 Pulse 71 06/21/21 09:00 Resp 16 06/21/21 09:00 BP 107/58 06/21/21 09:00 Pulse Ox 97 06/21/21 09:00 Intake & Output 06/20/21 06/21/21 06/21/21 18:59 06:59 18:59 Intake Total 1500 2175 375 Output Total 0 560 520 Balance 1500 1615 -145 Weight 79.379 kg 84.2 kg Intake: IV 1500 2175 375 0.9 1350 375 ACETAMINOPHEN IV (For NPO 200 ) 1,000 mg In Empty Bag 1 bag @ 400 mls/hr IVPB Q6HR STE[facility] Rx#:[id number] D5-0.45% NaCl with KCl 625 0 20Meq/l 1,000 ml @ 125 mls/hr IV .Q8H STEPHANIE Rx#: [id number] Oral 0 Output: Urine 0 510 270 Stool 250 Estimated Blood Loss 50 Other: Voiding Method Indwelling Catheter Indwelling Catheter ABP, PAP, CO, CI - Last Documented Arterial Blood Pressure 85/46 - Exam Abdomen: Soft, nondistended, clean and dry, ostomy pink, mucous fistula somewhat dusky looking - Labs CBC & Chem 7: 06/21/21 03:45 06/21/21 03:45 Labs: Abnormal Lab Results - Last 24 Hours (Table) 06/20/21 06/20/21 06/20/21 Range/Units 13:29 13:40 13:40 WBC 25.3 H (3.8-10.6) k/uL RBC (3.80-5.40) m/uL MCV (80.0-100.0) fL Neutrophils # 22.3 H (1.3-7.7) k/uL Lymphocytes # (1.0-4.8) k/uL Monocytes # 1.1 H (0-1.0) k/uL APTT 21.2 L (22.0-30.0) sec Sodium (137-145) mmol/L Potassium (3.5-5.1) mmol/L Chloride (98-107) mmol/L BUN (7-17) mg/dL Creatinine (0.52-1.04) mg/dL Glucose (74-99) mg/dL POC Glucose (mg/dL) (75-99) mg/dL Plasma Lactic Acid Jeff (0.7-2.0) mmol/L Calcium (8.4-10.2) mg/dL Alkaline Phosphatase (38-126) U/L Total Protein (6.3-8.2) g/dL Albumin (3.5-5.0) g/dL Lipase (23-300) U/L Urine Appearance Turbid H (Clear) Urine Protein 2+ H (Negative) Urine Blood Trace H (Negative) Ur Leukocyte Esterase Large H (Negative) Urine WBC >182 H (0-5) /hpf Urine WBC Clumps Few H (None) /hpf Urine Bacteria Moderate H (None) /hpf Urine Mucus Moderate H (None) /hpf 06/20/21 06/20/21 06/20/21 Range/Units 13:40 13:40 17:54 WBC (3.8-10.6) k/uL RBC (3.80-5.40) m/uL MCV (80.0-100.0) fL Neutrophils # (1.3-7.7) k/uL Lymphocytes # (1.0-4.8) k/uL Monocytes # (0-1.0) k/uL APTT (22.0-30.0) sec Sodium 134 L (137-145) mmol/L Potassium 5.3 H (3.5-5.1) mmol/L Chloride 96 L (98-107) mmol/L BUN 60 H (7-17) mg/dL Creatinine 2.88 H (0.52-1.04) mg/dL Glucose 180 H (74-99) mg/dL POC Glucose (mg/dL) 113 H (75-99) mg/dL Plasma Lactic Acid Jeff 2.5 H* (0.7-2.0) mmol/L Calcium (8.4-10.2) mg/dL Alkaline Phosphatase 194 H (38-126) U/L Total Protein (6.3-8.2) g/dL Albumin 3.4 L (3.5-5.0) g/dL Lipase 20 L (23-300) U/L Urine Appearance (Clear) Urine Protein (Negative) Urine Blood (Negative) Ur Leukocyte Esterase (Negative) Urine WBC (0-5) /hpf Urine WBC Clumps (None) /hpf Urine Bacteria (None) /hpf Urine Mucus (None) /hpf 06/20/21 06/20/21 06/21/21 Range/Units 21:24 22:09 03:45 WBC 24.7 H (3.8-10.6) k/uL RBC 3.56 L (3.80-5.40) m/uL MCV 102.2 H (80.0-100.0) fL Neutrophils # 22.6 H (1.3-7.7) k/uL Lymphocytes # 0.9 L (1.0-4.8) k/uL Monocytes # (0-1.0) k/uL APTT (22.0-30.0) sec Sodium (137-145) mmol/L Potassium (3.5-5.1) mmol/L Chloride (98-107) mmol/L BUN (7-17) mg/dL Creatinine (0.52-1.04) mg/dL Glucose (74-99) mg/dL POC Glucose (mg/dL) 115 H 124 H (75-99) mg/dL Plasma Lactic Acid Jeff (0.7-2.0) mmol/L Calcium (8.4-10.2) mg/dL Alkaline Phosphatase (38-126) U/L Total Protein (6.3-8.2) g/dL Albumin (3.5-5.0) g/dL Lipase (23-300) U/L Urine Appearance (Clear) Urine Protein (Negative) Urine Blood (Negative) Ur Leukocyte Esterase (Negative) Urine WBC (0-5) /hpf Urine WBC Clumps (None) /hpf Urine Bacteria (None) /hpf Urine Mucus (None) /hpf 06/21/21 Range/Units 03:45 WBC (3.8-10.6) k/uL RBC (3.80-5.40) m/uL MCV (80.0-100.0) fL Neutrophils # (1.3-7.7) k/uL Lymphocytes # (1.0-4.8) k/uL Monocytes # (0-1.0) k/uL APTT (22.0-30.0) sec Sodium 132 L (137-145) mmol/L Potassium 6.1 H* (3.5-5.1) mmol/L Chloride (98-107) mmol/L BUN 57 H (7-17) mg/dL Creatinine 2.63 H (0.52-1.04) mg/dL Glucose 252 H (74-99) mg/dL POC Glucose (mg/dL) (75-99) mg/dL Plasma Lactic Acid Jeff (0.7-2.0) mmol/L Calcium 7.5 L (8.4-10.2) mg/dL Alkaline Phosphatase (38-126) U/L Total Protein 4.9 L (6.3-8.2) g/dL Albumin 2.1 L (3.5-5.0) g/dL Lipase (23-300) U/L Urine Appearance (Clear) Urine Protein (Negative) Urine Blood (Negative) Ur Leukocyte Esterase (Negative) Urine WBC (0-5) /hpf Urine WBC Clumps (None) /hpf Urine Bacteria (None) /hpf Urine Mucus (None) /hpf Microbiology - Last 24 Hours (Table) 06/20/21 13:29 Urine Culture - Preliminary Urine,Catheterized Assessment and Plan (1) Pneumatosis intestinalis Narrative/Plan: Patient doing fairly well from a pulmonary and hemodynamic standpoint. Patient is having more pain. We'll add Ultram and Motrin for pain. Keep on Tylenol and Dilaudid as well. If pain improved consider having the patient did in the chair today. May transfer out of ICU per pulmonary. Current Visit: Yes Status: Acute Code(s): K63.89 - OTHER SPECIFIED DISEASES OF INTESTINE SNOMED Code(s): 89446611
--- NOTE | 2021-06-21 11:32 | XR ---
EXAMINATION TYPE: XR chest 1V portable DATE OF EXAM: 06/21/2021 COMPARISON: 12/31/2018 HISTORY: Dyspnea TECHNIQUE: Single frontal view of the chest is obtained. FINDINGS: There is mild pulmonary vascular congestion and mild cardiomegaly. The findings suggest mi ld CHF. There is no lung consolidation. There is no pleural effusion or pneumothorax. The osseous structures are intact. IMPRESSION: Mild cardiomegaly and pulmonary vascular congestion. The findings suggest the possibilit y of mild CHF. Clinical correlation short-term follow-up to resolution is recommended.
--- NOTE | 2021-06-21 12:14 | P.CNPUL ---
History of Present Illness Consult date: 06/21/21 Requesting physician: Arash Bailey Reason for consult: other Chief complaint: Critical care management. History of present illness: Pulmonary/critical care consult dated 06/21/2021. 80-year-old female who presented to the emergency department on 06/20/21, complaining of abdominal pain. She apparently is been having abdominal pain on and off for 1 week. Her abdomen felt distended. She also had episodes of both nausea and vomiting. She could not eat. She also had constipation, and some occasional soft bowel movements. There are no fever or chills. A CT of the abdomen and pelvis showed evidence of markedly dilated colonic loops to the level of the sigmoid colon. In addition, there was a 3.5 cm lesion in the area of the right ovary, potentially consistent with ovarian carcinoma. The patient underwent a exploratory laparotomy, with colectomy, ileostomy, and mucous fistula. The surgery was done by Dr. Bailey. Today, he is postop day #1. Likely, she is on 2 L nasal cannula, and saline at 125 mL an hour. A chest x- ray will be ordered. In addition, we will repeat potassium level, and also provide her with an incentive spirometer. White count 24.7, hemoglobin 11.5, hematocrit 36.4, and platelet count 294,000. Sodium 132, potassium 6.1, chlorides 105, CO2 24, anion gap 3, BUN 57, creatinine 2.63. Chest x-ray was consistent with mild cardiomegaly and mild pulmonary vascular congestion. Review of Systems REVIEW OF SYSTEMS: CONSTITUTIONAL: [Negative.] NEUROLOGIC: [ Negative.] HEENT: [ Negative.] CARDIAC: [Negative.] PULMONARY: [Negative.] GI: Abdominal pain about the surgical site. : [Negative.] RHEUMATOLOGIC: [ Negative.] IMMUNOLOGIC: [ Negative.] ENDOCRINE: [Negative. ] DERMATOLOGIC: [Negative.] Past Medical History Past Medical History: Heart Failure, Diabetes Mellitus, Hyperlipidemia, Hypertension, Osteoarthritis (OA) Additional Past Medical History / Comment(s): Previously at [facility] for rehab about 6-8 weeks ago History of Any Multi-Drug Resistant Organisms: MRSA Date of last positivie culture/infection: 11/18/18 MDRO Source:: URINE MRSA Past Surgical History: Section, Cholecystectomy Additional Past Surgical History / Comment(s): Bilateral cataract removals/lens implants, wrist surgery Past Anesthesia/Blood Transfusion Reactions: No Reported Reaction Additional Past Anesthesia/Blood Transfusion Reaction / Comment(s): Pt recieved blood in past without reaction (after childbirth) Smoking Status: Former smoker - Past Family History Father Additional Family Medical History / Comment(s): Father from an industrial exposure at the age of 42 yrs. Mother Family Medical History: No Reported History Additional Family Medical History / Comment(s): Mother lived to be 95 yrs old. Medications and Allergies Home Medications Medication Instructions Recorded Confirmed Type FLUoxetine HCL [PROzac] 40 mg PO DAILY 10/18/18 06/20/21 History Metoprolol Tartrate [Lopressor] 50 mg PO BID-W/MEALS 10/18/18 06/20/21 History Oxybutynin Chloride [Ditropan] 5 mg PO DAILY 10/18/18 06/20/21 History Furosemide [Lasix] 20 mg PO DAILY 12/31/18 06/20/21 History Acetaminophen [Tylenol Extra 1,000 mg PO BID 06/20/21 06/20/21 History Strength] Calcium Acetate [Phoslo] 667 mg PO TID 06/20/21 06/20/21 History Insulin Lispro Protamin/Lispro 12 unit SQ AC-BRKFST 06/20/21 06/20/21 History [humaLOG Mix 75-25 Kwikpen] Insulin Lispro Protamin/Lispro 15 unit SQ AC-SUPPER 06/20/21 06/20/21 History [humaLOG Mix 75-25 Kwikpen] Losartan Potassium 50 mg PO DAILY 06/20/21 06/20/21 History Oxybutynin Chloride [Ditropan] 10 mg PO HS 06/20/21 06/20/21 History Pravastatin Sodium [Pravachol] 40 mg PO DAILY 06/20/21 06/20/21 History Vit Low Iron Tab 1 tab PO DAILY 06/20/21 06/20/21 History Allergies Allergy/AdvReac Type Severity Reaction Status Date / Time codeine AdvReac Nausea & Verified 06/20/21 16:31 Vomiting Physical Exam Osteopathic Statement: *. No significant issues noted on an osteopathic structural exam other than those noted in the History and Physical/Consult. Vitals: Vital Signs Temp Pulse Pulse Resp BP BP BP 06/21/21 10:00 71 6 L 106/50 06/21/21 09:30 69 13 154/55 06/21/21 09:00 71 16 107/58 06/21/21 08:30 69 14 115/55 06/21/21 08:00 98.0 F 66 13 127/56 06/21/21 07:30 69 15 120/58 06/21/21 07:00 67 14 119/56 06/21/21 06:30 69 13 126/58 06/21/21 06:00 70 16 111/59 06/21/21 05:30 68 11 L 126/56 06/21/21 05:00 67 7 L 114/52 06/21/21 04:30 65 11 L 124/48 06/21/21 04:00 97.8 F 65 13 119/55 06/21/21 03:30 68 11 L 111/48 06/21/21 03:00 67 7 L 99/46 06/21/21 02:30 67 8 L 92/47 06/21/21 02:00 68 10 L 102/51 06/21/21 01:30 68 13 114/51 06/21/21 01:00 73 11 L 104/53 06/21/21 00:30 72 12 87/43 06/21/21 00:00 97.6 F 71 15 102/42 06/20/21 23:30 70 10 L 98/54 06/20/21 23:00 71 11 L 87/44 06/20/21 22:30 70 14 100/47 06/20/21 22:07 73 11 L 06/20/21 21:47 73 16 06/20/21 21:33 74 16 124/45 06/20/21 21:16 73 16 162/62 06/20/21 21:01 73 16 165/63 06/20/21 20:45 74 16 170/81 06/20/21 20:37 97.1 F L 73 16 173/64 147/70 06/20/21 16:00 98.9 F 67 18 147/81 06/20/21 14:37 67 18 135/72 06/20/21 13:06 98.2 F 66 18 140/58 BP Pulse Ox 06/21/21 10:00 97 06/21/21 09:30 97 06/21/21 09:00 97 11/06/21 08:30 99 06/21/21 08:00 98 06/21/21 07:30 98 06/21/21 07:00 98 06/21/21 06:30 98 06/21/21 06:00 97 06/21/21 05:30 97 06/21/21 05:00 96 06/21/21 04:30 97 06/21/21 04:00 97 06/21/21 03:30 97 06/21/21 03:00 96 06/21/21 02:30 97 06/21/21 02:00 96 06/21/21 01:30 98 06/21/21 01:00 97 06/21/21 00:30 97 06/21/21 00:00 95 06/20/21 23:30 99 06/20/21 23:00 98 06/20/21 22:30 98 06/20/21 22:07 06/20/21 21:47 119/56 100 06/20/21 21:33 127/61 100 06/20/21 21:16 174/73 100 06/20/21 21:01 168/88 100 06/20/21 20:45 170/84 100 06/20/21 20:37 97 06/20/21 16:00 95 06/20/21 14:37 97 06/20/21 13:06 100 Intake and Output 06/20/21 06/21/21 06/21/21 22:59 06:59 14:59 Intake Total 1500 2175 500 Output Total 350 210 570 Balance 1150 1965 -70 Intake: IV 1500 2175 500 0.9 1350 500 ACETAMINOPHEN IV (For NPO 200 ) 1,000 mg In Empty Bag 1 bag @ 400 mls/hr IVPB Q6HR STEPH[facility]IE Rx#:[id number] D5-0.45% NaCl with KCl 625 0 20Meq/l 1,000 ml @ 125 mls/hr IV .Q8H STEPHANIE Rx#: [id number] Oral 0 Output: Urine 300 210 320 Stool 250 Estimated Blood Loss 50 Other: Voiding Method Indwelling Catheter Indwelling Catheter Weight 84.2 kg 84.2 kg ABP, PAP, CO, CI - Last 8 Hours Arterial Blood Pressure 90/56 Arterial Blood Pressure 101/42 Arterial Blood Pressure 85/46 Arterial Blood Pressure 100/70 Arterial Blood Pressure 103/61 Arterial Blood Pressure 101/69 Arterial Blood Pressure 121/57 Arterial Blood Pressure 113/56 Arterial Blood Pressure 108/53 Arterial Blood Pressure 101/50 Arterial Blood Pressure 109/66 Arterial Blood Pressure 104/49 No acute distress, oriented 3. Currently on 2 L nasal cannula. Complaining of abdominal pain. HEENT examination is grossly unremarkable. Neck supple. Full range of motion. No adenopathy thyromegaly or neck vein distention. Cardiovascular examination reveals regular rhythm rate. S1-S2 normal. No S3 or S4. No discernible murmur noted. Heart rate 71 bpm. Heart sounds are distant. Lungs reveal mostly clear breath sounds. Scattered rhonchi. No wheezes or crackles. Abdomen soft without bowel sounds. 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 Extremities are intact. No cyanosis clubbing or edema. Skin is without rash or lesion. Neurologic examination is brief but nonfocal. Results - Laboratory Findings CBC and BMP: 06/21/21 03:45 06/21/21 03:45 PT/INR, D-dimer PT 10.5 sec (9.0-12.0) 06/20/21 13:40 INR 1.0 (<1.2) 06/20/21 13:40 Abnormal lab findings: Abnormal Labs 06/20/21 06/20/21 06/20/21 13:29 13:40 13:40 WBC 25.3 H RBC MCV Neutrophils # 22.3 H Lymphocytes # Monocytes # 1.1 H APTT 21.2 L Sodium Potassium Chloride BUN Creatinine Glucose POC Glucose (mg/dL) Plasma Lactic Acid Jeff Calcium Alkaline Phosphatase Total Protein Albumin Lipase Urine Appearance Turbid H Urine Protein 2+ H Urine Blood Trace H Ur Leukocyte Esterase Large H Urine WBC >182 H Urine WBC Clumps Few H Urine Bacteria Moderate H Urine Mucus Moderate H 06/20/21 06/20/21 06/20/21 13:40 13:40 17:54 WBC RBC MCV Neutrophils # Lymphocytes # Monocytes # APTT Sodium 134 L Potassium 5.3 H Chloride 96 L BUN 60 H Creatinine 2.88 H Glucose 180 H POC Glucose (mg/dL) 113 H Plasma Lactic Acid Jeff 2.5 H* Calcium Alkaline Phosphatase 194 H Total Protein Albumin 3.4 L Lipase 20 L Urine Appearance Urine Protein Urine Blood Ur Leukocyte Esterase Urine WBC Urine WBC Clumps Urine Bacteria Urine Mucus 06/20/21 06/20/21 06/21/21 21:24 22:09 03:45 WBC 24.7 H RBC 3.56 L MCV 102.2 H Neutrophils # 22.6 H Lymphocytes # 0.9 L Monocytes # APTT Sodium Potassium Chloride BUN Creatinine Glucose POC Glucose (mg/dL) 115 H 124 H Plasma Lactic Acid Jeff Calcium Alkaline Phosphatase Total Protein Albumin Lipase Urine Appearance Urine Protein Urine Blood Ur Leukocyte Esterase Urine WBC Urine WBC Clumps Urine Bacteria Urine Mucus 06/21/21 03:45 WBC RBC MCV Neutrophils # Lymphocytes # Monocytes # APTT Sodium 132 L Potassium 6.1 H* Chloride BUN 57 H Creatinine 2.63 H Glucose 252 H POC Glucose (mg/dL) Plasma Lactic Acid Jeff Calcium 7.5 L Alkaline Phosphatase Total Protein 4.9 L Albumin 2.1 L Lipase Urine Appearance Urine Protein Urine Blood Ur Leukocyte Esterase Urine WBC Urine WBC Clumps Urine Bacteria Urine Mucus - Diagnostic Findings Chest x-ray: image reviewed Assessment and Plan Assessment: Postop day #1, status post exploratory laparotomy, colectomy with colostomy, repair of umbilicus hernia and mucous fistula, secondary to colonic obstruction with pneumatosis and umbilicus hernia. Right ovarian lesion. History of CHF. History of diabetes mellitus. History of hyperlipidemia. History of hypertension. History of osteoarthritis. Plan: Plan dated 06/21/2021. The patient will get a chest x-ray. In addition, we will repeat the potassium level. Also, we encourage the patient to deep breathe, cough, clear secretions, and use incentive spirometer every hour while awake. We will also recheck the potassium level. She was quite high. Additional recommendations and suggestions are forthcoming. Prognosis is guarded. The patient's only complaint at this time is that of pain about the surgical site. Time with Patient: Greater than 30
[2021-06-21] MEDS: SODIUM CHLORIDE 0.9% 1,000 ML IV SCH ×2 (13:14→20:30)
[2021-06-21] MEDS ORDERED: DEXTROSE 50% SYRINGE 50 ML IVP STA (14:22)
[2021-06-21] MEDS ORDERED: INSULIN REGULAR 100 UNIT/ML VIAL (IV) IV ONE (14:30)
--- NOTE | 2021-06-21 15:39 | P.PN ---
Subjective Progress Note Date: 06/21/21 HISTORY OF PRESENT ILLNESS 80-year-old female one of Dr. Sanchez's patient with past medical history of CAD, hypertension, hyperlipidemia, recurrent urinary tract infection who presented to [facility] today after an episode of increase abdominal pain and distention specially in the right side with worsening nausea and vomiting with significant decrease in appetite has not had much to eat or drink. The time was seen to have significant leukocytosis with white blood cell 25,000 mild elevated lactic acid. CAT scan of the abdomen showed significant colonic distention with evidence of right-sided ischemic change with pneumatosis intestinalis. Patient started looking more toxic at this point. Patient was seen Dr. gipson and was taking from the emergency department to the OR for partial resection in the having exploratory laparotomy with right sided colectomy and end ileostomy with mucous fistula repair. Umbilical hernia. She was started on Zosyn, pain management, IV resuscitation along with DVT prophylaxis and admitted to the ICU after surgery. 06/21: Patient was hemodynamically not stable after her surgery was transferred to the ICU, patient surgery was consistent with dilated loop of bowel in the sigmoid with 3.5 cm lesion in the right ovary potential ovarian cancer her laparotomy with colectomy ileostomy and mucous fistula was done and patient is doing much better today except her potassium was quite bit high at 6.0 patient is making enough urine at this point with creatinine at 2.63, will continue hydration nephrology be consult at and treatment for hyperkalemia will be done. REVIEW OF SYSTEMS Constitutional: No fever, no chills, no night sweats. No weight change. No weakness, fatigue or lethargy. No daytime sleepiness. Slightly confused does not look in any respiratory distress. EENT: No headache. No blurred vision or double vision, no loss of vision. No loss of Hearing, no ringing in the ears, no dizziness. No nasal drainage or congestion. No epistaxis. No sore throat. Lungs: No shortness of breath, cough, no sputum production. No wheezing. Cardiovascular: Mild PND and orthopnea and no chest pain slight edema of the lower extremity mild palpitation with exertion. Abdominal: Significant distention with mild abdominal discomfort more than pain with significant nausea vomiting positive an episode of large bowel movement at the time with no blood in it. Significant decrease in appetite. Genitourinary: No dysuria, increased frequency, urgency. No urinary retention. Decrease urine output. Musculoskeletal: No myalgias. No muscle weakness, no gait dysfunction, no frequent falls. No back pain. No neck pain. Integumentary: No wounds, no lesions. No rash or pruritus. No unusual bruisi ng. No change in hair or nails. Neurologic: No motor deficit visualized weakness had slight change mental status. Psychiatric: No depression. No anxiety. No mood swings. Endocrine: No abnormal blood sugars. No weight change. No excessive sweating or thirst. No cold intolerance. PHYSICAL EXAMINATION Gen: This is an elderly laying in bed with significant abdominal distention with slight nausea at the time. HEENT: Head is atraumatic, normocephalic. Pupils equal, round. Sclerae is anicteric. NECK: Supple. No JVD. No lymphadenopathy. No thyromegaly. LUNGS: Decreased breath some bilateral rhonchi and mild expiratory wheezes. HEART: Regular rate and rhythm. Mild tachycardia. ABDOMEN: Surgical site excluded patient had to ostomy bag 1 his ileostomy another one is fistula drain bag. Both area looks clean at this point with no major distention of the abdomen anymore. EXTREMITIES: No pedal edema. No calf tenderness. NEUROLOGICAL: Patient is awake, alert with slight confusion. Cranial nerves 2 through 12 are grossly intact. ASSESSMENT AND PLAN 1. Abdominal pain: Most likely from ischemic colitis with slight early perforation, patient went for surgery with colectomy, ileostomy and mucous fistula repair. 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 3 bowel obstruction: Most likely caused by pneumatosis intestinalis along with ischemic colitis: Will be going for exploratory surgery correction. 4 history of congestive heart failure: Has been on metoprolol, furosemide and fluid restriction. 5 type 2 diabetes: Has been on NovoLog continue Accu-Chek sliding scales coverage for now hold off on any long-acting insulin. 6 acute kidney injury with chronic kidney disease: Creatinine is still quite bit high patient still stage IV chronic kidney disease still have hyperkalemia required treatment. 7 chronic neuropathy: Has been on Lyrica 75 mg twice a day. 8 hyperlipidemia: We'll continue patient on Lipitor 20 mg daily. 9 chronic edema: Remain on diuretics. 10 COPD: Continue DuoNeb and if needed will add Pulmicort. 11 DVT prophylaxis: Patient will be on heparin subcutaneous or Lovenox. CODE STATUS: Full code. Objective - Vital Signs Vital signs: Vital Signs Temp 98.2 F 06/21/21 12:00 Pulse 75 06/21/21 12:00 Resp 23 06/21/21 12:00 BP 118/57 06/21/21 12:00 Pulse Ox 97 06/21/21 12:00 Intake & Output 06/20/21 06/21/21 06/21/21 18:59 06:59 18:59 Intake Total 1500 2175 625 Output Total 0 560 620 Balance 1500 1615 5 Weight 79.379 kg 84.2 kg Intake: IV 1500 2175 625 0.9 1350 625 ACETAMINOPHEN IV (For NPO 200 ) 1,000 mg In Empty Bag 1 bag @ 400 mls/hr IVPB Q6HR STEPHANIE Rx#:[id number] D5-0.45% NaCl with KCl 625 0 20Meq/l 1,000 ml @ 125 mls/hr IV .Q8H STEPHANIE Rx#: [id number] Oral 0 Output: Urine 0 510 370 Stool 250 Estimated Blood Loss 50 Other: Voiding Method Indwelling Catheter Indwelling Catheter ABP, PAP, CO, CI - Last Documented Arterial Blood Pressure 76/64 - Labs CBC & Chem 7: 06/21/21 03:45 06/21/21 11:24 Labs: Abnormal Lab Results - Last 24 Hours (Table) 06/20/21 06/20/21 06/20/21 Range/Units 13:29 13:40 13:40 WBC 25.3 H (3.8-10.6) k/uL RBC (3.80-5.40) m/uL MCV (80.0-100.0) fL Neutrophils # 22.3 H (1.3-7.7) k/uL Lymphocytes # (1.0-4.8) k/uL Monocytes # 1.1 H (0-1.0) k/uL APTT 21.2 L (22.0-30.0) sec Sodium (137-145) mmol/L Potassium (3.5-5.1) mmol/L Chloride (98-107) mmol/L BUN (7-17) mg/dL Creatinine (0.52-1.04) mg/dL Glucose (74-99) mg/dL POC Glucose (mg/dL) (75-99) mg/dL Plasma Lactic Acid Jeff (0.7-2.0) mmol/L Calcium (8.4-10.2) mg/dL Alkaline Phosphatase (38-126) U/L Total Protein (6.3-8.2) g/dL Albumin (3.5-5.0) g/dL Lipase (23-300) U/L Urine Appearance Turbid H (Clear) Urine Protein 2+ H (Negative) Urine Blood Trace H (Negative) Ur Leukocyte Esterase Large H (Negative) Urine WBC >182 H (0-5) /hpf Urine WBC Clumps Few H (None) /hpf Urine Bacteria Moderate H (None) /hpf Urine Mucus Moderate H (None) /hpf 06/20/21 06/20/21 06/20/21 Range/Units 13:40 13:40 17:54 WBC (3.8-10.6) k/uL RBC (3.80-5.40) m/uL MCV (80.0-100.0) fL Neutrophils # (1.3-7.7) k/uL Lymphocytes # (1.0-4.8) k/uL Monocytes # (0-1.0) k/uL APTT (22.0-30.0) sec Sodium 134 L (137-145) mmol/L Potassium 5.3 H (3.5-5.1) mmol/L Chloride 96 L (98-107) mmol/L BUN 60 H (7-17) mg/dL Creatinine 2.88 H (0.52-1.04) mg/dL Glucose 180 H (74-99) mg/dL POC Glucose (mg/dL) 113 H (75-99) mg/dL Plasma Lactic Acid Jeff 2.5 H* (0.7-2.0) mmol/L Calcium (8.4-10.2) mg/dL Alkaline Phosphatase 194 H (38-126) U/L Total Protein (6.3-8.2) g/dL Albumin 3.4 L (3.5-5.0) g/dL Lipase 20 L (23-300) U/L Urine Appearance (Clear) Urine Protein (Negative) Urine Blood (Negative) Ur Leukocyte Esterase (Negative) Urine WBC (0-5) /hpf Urine WBC Clumps (None) /hpf Urine Bacteria (None) /hpf Urine Mucus (None) /hpf 11/01/0306/20/21 06/21/21 Range/Units 21:24 22:09 03:45 WBC 24.7 H (3.8-10.6) k/uL RBC 3.56 L (3.80-5.40) m/uL MCV 102.2 H (80.0-100.0) fL Neutrophils # 22.6 H (1.3-7.7) k/uL Lymphocytes # 0.9 L (1.0-4.8) k/uL Monocytes # (0-1.0) k/uL APTT (22.0-30.0) sec Sodium (137-145) mmol/L Potassium (3.5-5.1) mmol/L Chloride (98-107) mmol/L BUN (7-17) mg/dL Creatinine (0.52-1.04) mg/dL Glucose (74-99) mg/dL POC Glucose (mg/dL) 115 H 124 H (75-99) mg/dL Plasma Lactic Acid Jeff (0.7-2.0) mmol/L Calcium (8.4-10.2) mg/dL Alkaline Phosphatase (38-126) U/L Total Protein (6.3-8.2) g/dL Albumin (3.5-5.0) g/dL Lipase (23-300) U/L Urine Appearance (Clear) Urine Protein (Negative) Urine Blood (Negative) Ur Leukocyte Esterase (Negative) Urine WBC (0-5) /hpf Urine WBC Clumps (None) /hpf Urine Bacteria (None) /hpf Urine Mucus (None) /hpf 06/21/21 06/21/21 Range/Units 03:45 11:24 WBC (3.8-10.6) k/uL RBC (3.80-5.40) m/uL MCV (80.0-100.0) fL Neutrophils # (1.3-7.7) k/uL Lymphocytes # (1.0-4.8) k/uL Monocytes # (0-1.0) k/uL APTT (22.0-30.0) sec Sodium 132 L (137-145) mmol/L Potassium 6.1 H* 6.0 H (3.5-5.1) mmol/L Chloride (98-107) mmol/L BUN 57 H (7-17) mg/dL Creatinine 2.63 H (0.52-1.04) mg/dL Glucose 252 H (74-99) mg/dL POC Glucose (mg/dL) (75-99) mg/dL Plasma Lactic Acid Jeff (0.7-2.0) mmol/L Calcium 7.5 L (8.4-10.2) mg/dL Alkaline Phosphatase (38-126) U/L Total Protein 4.9 L (6.3-8.2) g/dL Albumin 2.1 L (3.5-5.0) g/dL Lipase (23-300) U/L Urine Appearance (Clear) Urine Protein (Negative) Urine Blood (Negative) Ur Leukocyte Esterase (Negative) Urine WBC (0-5) /hpf Urine WBC Clumps (None) /hpf Urine Bacteria (None) /hpf Urine Mucus (None) /hpf Microbiology - Last 24 Hours (Table) 06/20/21 13:29 Urine Culture - Preliminary Urine,Catheterized
[2021-06-22 03:00] LABS: Glucose,Whole Blood 96 mg/dL (75-99)
[2021-06-22] MEDS: HYDROmorphone 0.5 MG/0.5 ML SYRINGE IVP PRN ×4 (03:07→17:48)
[2021-06-22 03:10] LABS: Basophils % (A) 0 %; Eosinophils # (A) 0.1 k/uL (0-0.7); Eosinophils % (A) 1 %; HCT 32.5 % (34.0-46.0); HGB 10.2 gm/dL (11.4-16.0); Lymphocytes # (A) 1.7 k/uL (1.0-4.8); Lymphocytes % (A) 12 %; MCH 32.2 pg (25.0-35.0); MCHC 31.5 g/dL (31.0-37.0); MCV 102.3 fL (80.0-100.0); Macrocytosis Slight; Mean Platelet Volume 7.8; Monocytes # (A) 0.7 k/uL (0-1.0); Monocytes % (A) 5 %; Neutrophils # (A) 11.3 k/uL (1.3-7.7); Neutrophils % (A) 80 %; Platelet Count 252 k/uL (150-450); RBC 3.18 m/uL (3.80-5.40); RDW 12.9 % (11.5-15.5)
[2021-06-22 03:16] LABS: Calcium 6.8 mg/dL (8.4-10.2)
[2021-06-22] MEDS: SODIUM CHLORIDE 0.9% 1,000 ML IV SCH ×4 (04:34→23:12)
[2021-06-22] MEDS: PIPERACILLIN-TAZOBACTAM 3.375 GM in SODIUM CHLORIDE 0.9% 100 ML IVPB SCH ×2 (04:35→17:46)
[2021-06-22] MEDS: ACETAMINOPHEN IV (For NPO) 1,000 MG in EMPTY BAG 1 BAG IVPB SCH ×4 (06:48→23:11)
[2021-06-22] MEDS: PANTOPRAZOLE 40 MG/10 ML VIAL IV SCH (09:26)
[2021-06-22] MEDS: HEPARIN SODIUM,PORCINE/PF 5,000 UNIT/0.5 ML SYRINGE SQ SCH ×3 (09:26→23:11)
--- NOTE | 2021-06-22 10:33 | P.PN ---
Subjective Progress Note Date: 06/22/21 Principal diagnosis: Colon obstruction Patient doing better today. White blood cell count 14. Potassium down to 5.0. Creatinine 2.2. Pain is better controlled. Small amount of ileostomy output. Objective - Vital Signs Vital signs: Vital Signs Temp 98.1 F 06/22/21 08:00 Pulse 102 H 06/22/21 10:00 Resp 11 L 06/22/21 10:00 BP 137/62 06/22/21 10:00 Pulse Ox 97 06/22/21 10:00 Intake & Output 06/21/21 06/22/21 06/22/21 19:59 06:59 18:59 Intake Total 500 Output Total 225 Balance 275 Weight Intake: IV 500 0.9 500 Output: Urine 225 Stool Other: Voiding Method Indwelling Catheter ABP, PAP, CO, CI - Last Documented Arterial Blood Pressure 144/56 - Exam Abdomen: Soft, nondistended, incision clean and dry, ostomy pink - Labs CBC & Chem 7: 06/22/21 03:00 06/22/21 03:00 Labs: Abnormal Lab Results - Last 24 Hours (Table) 06/21/21 06/22/21 06/22/21 Range/Units 11:24 03:00 03:00 WBC 14.0 H (3.8-10.6) k/uL RBC 3.18 L (3.80-5.40) m/uL Hgb 10.2 L (11.4-16.0) gm/dL Hct 32.5 L (34.0-46.0) % MCV 102.3 H (80.0-100.0) fL Neutrophils # 11.3 H (1.3-7.7) k/uL Potassium 6.0 H (3.5-5.1) mmol/L Chloride 114 H (98-107) mmol/L Carbon Dioxide 19 L (22-30) mmol/L BUN 45 H (7-17) mg/dL Creatinine 2.21 H (0.52-1.04) mg/dL Calcium 6.8 L (8.4-10.2) mg/dL Microbiology - Last 24 Hours (Table) 06/20/21 13:29 Urine Culture - Preliminary Urine,Catheterized Gram Neg Bacilli Assessment and Plan (1) Pneumatosis intestinalis Narrative/Plan: Patient doing well at this time. Begin clear liquids. May transfer to floor. Consult cardiology for A. fib. Out of bed to chair. Current Visit: Yes Status: Acute Code(s): K63.89 - OTHER SPECIFIED DISEASES OF INTESTINE SNOMED Code(s): 81613758
--- NOTE | 2021-06-22 12:46 | P.PN ---
Subjective Progress Note Date: 06/22/21 Principal diagnosis: Bowel obstruction. Pulmonary/critical care consult dated 06/21/2021. 80-year-old female who presented to the emergency department on 06/20/21, complaining of abdominal pain. She apparently is been having abdominal pain on and off for 1 week. Her abdomen felt distended. She also had episodes of both nausea and vomiting. She could not eat. She also had constipation, and some occasional soft bowel movements. There are no fever or chills. A CT of the abdomen and pelvis showed evidence of markedly dilated colonic loops to the level of the sigmoid colon. In addition, there was a 3.5 cm lesion in the area of the right ovary, potentially consistent with ovarian carcinoma. The patient underwent a exploratory laparotomy, with colectomy, ileostomy, and mucous fistula. The surgery was done by Dr. Bailey. Today, he is postop day #1. Likely, she is on 2 L nasal cannula, and saline at 125 mL an hour. A chest x- ray will be ordered. In addition, we will repeat potassium level, and also provide her with an incentive spirometer. White count 24.7, hemoglobin 11.5, hematocrit 36.4, and platelet count 294,000. Sodium 132, potassium 6.1, chlorides 105, CO2 24, anion gap 3, BUN 57, creatinine 2.63. Chest x-ray was consistent with mild cardiomegaly and mild pulmonary vascular congestion. Progress note dated 06/22/2021. 80-year-old female postop day #2, status post exploratory laparotomy, colectomy, ileostomy, mucous fistula, and repair of umbilical hernia. Currently, the patient's doing well. She is on 2 L nasal cannula, and saline at 125 mL an hour. She does have some gram-negative bacilli in her urine and she is currently on Zosyn. She did not have an incentive spirometer in the room, and we asked the nurse to get her one. White count 14, hemoglobin 10.2, hematocrit 32.5, platelet count 252,000. Sodium 137, potassium down to 5, Rhett 114, CO2 19, anion gap 4, BUN 45, and creatinine 2.21. Chest x-ray from June 21 was reviewed. Objective - Vital Signs Vital signs: Vital Signs Temp 97.5 F L 06/22/21 12:00 Pulse 109 H 06/22/21 12:00 Resp 19 06/22/21 12:00 BP 107/69 06/22/21 12:00 Pulse Ox 98 06/22/21 12:00 Intake & Output 06/21/21 06/22/21 06/22/21 19:59 06:59 18:59 Intake Total 750 Output Total 330 Balance 420 Weight Intake: IV 750 0.9 750 Output: Urine 330 Stool Other: Voiding Method Indwelling Catheter ABP, PAP, CO, CI - Last Documented Arterial Blood Pressure 154/59 - Exam No acute distress, oriented 3. Currently on 2 L nasal cannula. HEENT examination is grossly unremarkable. Neck supple. Full range of motion. No adenopathy thyromegaly or neck vein distention. Cardiovascular examination reveals regular rhythm rate. S1-S2 normal. No S3 or S4. No discernible murmur noted. Heart rate 109 bpm. Heart sounds are distant. Lungs reveal mostly clear breath sounds. Scattered rhonchi. No wheezes or crackles. Abdomen soft without bowel sounds. A mucous fistula seen in the left upper qu adrant, and ileostomy in the right lower quadrant. Extremities are intact. No cyanosis clubbing or edema. Skin is without rash or lesion. Neurologic examination is brief but nonfocal. - Labs CBC & Chem 7: 06/22/21 03:00 06/22/21 03:00 Labs: Abnormal Lab Results - Last 24 Hours (Table) 06/22/21 06/22/21 Range/Units 03:00 03:00 WBC 14.0 H (3.8-10.6) k/uL RBC 3.18 L (3.80-5.40) m/uL Hgb 10.2 L (11.4-16.0) gm/dL Hct 32.5 L (34.0-46.0) % MCV 102.3 H (80.0-100.0) fL Neutrophils # 11.3 H (1.3-7.7) k/uL Chloride 114 H (98-107) mmol/L Carbon Dioxide 19 L (22-30) mmol/L BUN 45 H (7-17) mg/dL Creatinine 2.21 H (0.52-1.04) mg/dL Calcium 6.8 L (8.4-10.2) mg/dL Microbiology - Last 24 Hours (Table) 06/20/21 13:29 Urine Culture - Preliminary Urine,Catheterized Gram Neg Bacilli Assessment and Plan Assessment: Postop day #2, status post exploratory laparotomy, colectomy with colostomy, repair of umbilicus hernia and mucous fistula, secondary to colonic obstruction with pneumatosis and umbilicus hernia. Right ovarian lesion. History of CHF. History of diabetes mellitus. History of hyperlipidemia. History of hypertension. History of osteoarthritis. Plan: Plan dated 06/21/2021. The patient will get a chest x-ray. In addition, we will repeat the potassium level. Also, we encourage the patient to deep breathe, cough, clear secretions, and use incentive spirometer every hour while awake. We will also recheck the potassium level. She was quite high. Additional recommendations and suggestions are forthcoming. Prognosis is guarded. The patient's only complaint at this time is that of pain about the surgical site. Plan dated 06/22/2021. The patient is postop day #2, status post abdominal surgery. Her potassium was treated yesterday is back down in the normal range. The patient does need an incentive spirometer. She is also encouraged to use an hourly, and to deep breathe, cough, and clear secretions. The patient remains on Zosyn, for gram- negative bacilli in the urine. They have not yet been identified. The patient will continue to follow. Prognosis is guarded. I did speak to the surgeon today. Time with Patient: Greater than 30
--- NOTE | 2021-06-22 12:56 | P.PN ---
Subjective Progress Note Date: 06/22/21 HISTORY OF PRESENT ILLNESS 80-year-old female one of Dr. Sanchez's patient with past medical history of CAD, hypertension, hyperlipidemia, recurrent urinary tract infection who presented to [facility] today after an episode of increase abdominal pain and distention specially in the right side with worsening nausea and vomiting with significant decrease in appetite has not had much to eat or drink. The time was seen to have significant leukocytosis with white blood cell 25,000 mild elevated lactic acid. CAT scan of the abdomen showed significant colonic distention with evidence of right-sided ischemic change with pneumatosis intestinalis. Patient started looking more toxic at this point. Patient was seen Dr. gipson and was taking from the emergency department to the OR for partial resection in the having exploratory laparotomy with right sided colectomy and end ileostomy with mucous fistula repair. Umbilical hernia. She was started on Zosyn, pain management, IV resuscitation along with DVT prophylaxis and admitted to the ICU after surgery. 06/21: Patient was hemodynamically not stable after her surgery was transferred to the ICU, patient surgery was consistent with dilated loop of bowel in the sigmoid with 3.5 cm lesion in the right ovary potential ovarian cancer her laparotomy with colectomy ileostomy and mucous fistula was done and patient is doing much better today except her potassium was quite bit high at 6.0 patient is making enough urine at this point with creatinine at 2.63, will continue hydration nephrology be consult at and treatment for hyperkalemia will be done. 06/22: Patient states 2 post exploratory surgery with colectomy, ileostomy in the right side fistula in the left side with repair of umbilical hernia. Patient is doing well her intake through the ostomy has been doing better, patient has not had much oral intake this point and still on Zosyn antibiotic-neely her microbiology came back as a gram-negative bacillary in the urine. Her creatinine is tiny bit down compared to yesterday patient is making good urine output this point. REVIEW OF SYSTEMS Constitutional: No fever, no chills, no night sweats. No weight change. No weakness, fatigue or lethargy. No daytime sleepiness. Slightly confused does not look in any respiratory distress. EENT: No headache. No blurred vision or double vision, no loss of vision. No loss of Hearing, no ringing in the ears, no dizziness. No nasal drainage or congestion. No epistaxis. No sore throat. Lungs: No shortness of breath, cough, no sputum production. No wheezing. Cardiovascular: Mild PND and orthopnea and no chest pain slight edema of the lower extremity mild palpitation with exertion. Abdominal: Significant distention with mild abdominal discomfort more than pain with significant nausea vomiting positive an episode of large bowel movement at the time with no blood in it. Significant decrease in appetite. Genitourinary: No dysuria, increased frequency, urgency. No urinary retention. Decrease urine output. Musculoskeletal: No myalgias. No muscle weakness, no gait dysfunction, no frequent falls. No back pain. No neck pain. Integumentary: No wounds, no lesions. No rash or pruritus. No unusual bruising. No change in hair or nails. Neurologic: No motor deficit visualized weakness had slight change mental status. Psychiatric: No depression. No anxiety. No mood swings. Endocrine: No abnormal blood sugars. No weight change. No excessive sweating or thirst. No cold intolerance. PHYSICAL EXAMINATION Gen: This is an elderly laying in bed with significant abdominal distention with slight nausea at the time. HEENT: Head is atraumatic, normocephalic. Pupils equal, round. Sclerae is anicteric. NECK: Supple. No JVD. No lymphadenopathy. No thyromegaly. LUNGS: Decreased breath some bilateral rhonchi and mild expiratory wheezes. HEART: Regular rate and rhythm. Mild tachycardia. ABDOMEN: Surgical site excluded patient had to ostomy bag 1 his ileostomy another one is fistula drain bag. Both area looks clean at this point with no major distention of the abdomen anymore. EXTREMITIES: No pedal edema. No calf tenderness. NEUROLOGICAL: Patient is awake, alert with slight confusion. Cranial nerves 2 through 12 are grossly intact. ASSESSMENT AND PLAN 1. Abdominal pain: Most likely from ischemic colitis with slight early perforation, patient went for surgery with colectomy, ileostomy and mucous fistula repair, and umbilical hernia repair as well. 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 Incision looks fine. 3 bowel obstruction: Most likely caused by pneumatosis intestinalis along with ischemic colitis: Will be going for exploratory surgery correction. 4 history of congestive heart failure: Has been on metoprolol, furosemide and fluid restriction. 5 type 2 diabetes: Has been on NovoLog continue Accu-Chek sliding scales coverage for now hold off on any long-acting insulin. We'll resume home meds soon as patient is able to have increase in oral intake. 6 acute kidney injury with chronic kidney disease: Continue hydration with significant improvement in creatinine compared to before. 7 chronic neuropathy: Has been on Lyrica 75 mg twice a day. 8 hyperlipidemia: We'll continue patient on Lipitor 20 mg daily. 9 chronic edema: Remain on diuretics. 10 COPD: Continue DuoNeb and if needed will add Pulmicort. 11 DVT prophylaxis: Patient will be on heparin subcutaneous or Lovenox. CODE STATUS: Full code. Objective - Vital Signs Vital signs: Vital Signs Temp 98.1 F 06/22/21 08:00 Pulse 128 H 06/22/21 11:00 Resp 10 L 06/22/21 11:00 BP 107/69 06/22/21 11:00 Pulse Ox 97 06/22/21 11:00 Intake & Output 06/21/21 06/22/21 06/22/21 19:59 06:59 18:59 Intake Total 625 Output Total 255 Balance 370 Weight Intake: IV 625 0.9 625 Output: Urine 255 Stool Other: Voiding Method Indwelling Catheter ABP, PAP, CO, CI - Last Documented Arterial Blood Pressure 128/49 - Labs CBC & Chem 7: 06/22/21 03:00 06/22/21 03:00 Labs: Abnormal Lab Results - Last 24 Hours (Table) 06/22/21 06/22/21 Range/Units 03:00 03:00 WBC 14.0 H (3.8-10.6) k/uL RBC 3.18 L (3.80-5.40) m/uL Hgb 10.2 L (11.4-16.0) gm/dL Hct 32.5 L (34.0-46.0) % MCV 102.3 H (80.0-100.0) fL Neutrophils # 11.3 H (1.3-7.7) k/uL Chloride 114 H (98-107) mmol/L Carbon Dioxide 19 L (22-30) mmol/L BUN 45 H (7-17) mg/dL Creatinine 2.21 H (0.52-1.04) mg/dL Calcium 6.8 L (8.4-10.2) mg/dL Microbiology - Last 24 Hours (Table) 06/20/21 13:29 Urine Culture - Preliminary Urine,Catheterized Gram Neg Bacilli
--- NOTE | 2021-06-22 15:01 | P.CRDCN ---
History of Present Illness History of present illness: HISTORY OF PRESENTING ILLNESS Is a pleasant 78-year-old female with history of hypertension, paroxysmal atrial fibrillation, chronic kidney disease, cardiomyopathy, hyperlipidemia, diabetes mellitus type 2, COPD, recurrent UTIs and bowel obstruction who presents secondary abdominal pain and was found to have bowel obstruction. Patient underwent abdominal surgery with colostomy placed on the fifth. Patient initially was somewhat hypotensive however blood pressures at been better after being monitored in the ICU. Patient was then noted to have an episode of atrial fibrillation a few hours ago with heart rates in the 120s and 130s. She denies any chest pain, pressure, shortness breath. She does have a prior history of atrial fibrillation noted from previous consult from 2019. She previously had decreased blood counts however currently no anemia and denies any hematochezia or melena. No history of stroke or TIA. Last echo from 12/2018 showed EF less than 20% with mild mitral regurgitation. She believes she had a prior heart catheterization where she was told she did not have significant blockages. REVIEW OF SYSTEMS At the time of my exam: CONSTITUTIONAL: Denies fever or chills. CARDIOVASCULAR: Denies chest pain, shortness of breath, orthopnea, PND or palpitations. RESPIRATORY: Denies cough. GASTROINTESTINAL: +abdominal pain, no diarrhea, constipation, nausea or vomiting. MUSCULOSKELETAL: Denies myalgias. NEUROLOGIC: Denies numbness, tingling or weakness. ENDOCRINE: Denies fatigue, weight change, polydipsia or polyurina. GENITOURINARY: Denies burning, hematuria or urgency with micturation. HEMATOLOGIC: Denies history of anemia or bleeding. PHYSICAL EXAMINATION Vital signs reviewed. CONSTITUTIONAL: No apparent distress. HEENT: Head is normocephalic. Pupils are equal, round. Sclerae anicteric. Mucous membranes of the mouth are moist. No JVD. No carotid bruit. CHEST EXAMINATION: Lungs are clear to auscultation. No chest wall tenderness is noted on palpation or with deep breathing. HEART EXAMINATION: Irregular rate and rhythm. S1, S2 heard. No murmurs, gallops or rub. ABDOMEN: Soft, nontender. Positive bowel sounds. EXTREMITIES: 2+ peripheral pulses, no lower extremity edema and no calf tenderness. NEUROLOGIC EXAMINATION: Patient is awake, alert and oriented x3. ASSESSMENT 1. Paroxysmal atrial fibrillation, currently A. fib with mild RVR 2. Chronic systolic heart failure 3. Cardiomyopathy EF less than 20% by echo 01/02/2019 4. Hypertension, recently hypotensive secondary to sepsis 5. Bowel obstruction status post colostomy 6. Septic shock, improving PLAN Patient's main presentation was for abdominal pain and underwent successful surgery and appears to be recovering well. She was noted however to go in A. fib with RVR and has been fairly asymptomatic. We will restart her home metoprolol and monitor response. Blood pressures have been somewhat lower however now appear improved. Monitor for any volume overload with history of cardiomyopathy. Check repeat 2-D echo to evaluate if ejection fraction still decreased. Past Medical History Past Medical History: Heart Failure, Diabetes Mellitus, Hyperlipidemia, Hypertension, Osteoarthritis (OA) Additional Past Medical History / Comment(s): Previously at [facility] for rehab about 6-8 weeks ago History of Any Multi-Drug Resistant Organisms: MRSA Date of last positivie culture/infection: 11/18/18 MDRO Source:: URINE MRSA Past Surgical History: Section, Cholecystectomy Additional Past Surgical History / Comment(s): Bilateral cataract removals/lens implants, wrist surgery Past Anesthesia/Blood Transfusion Reactions: No Reported Reaction Additional Past Anesthesia/Blood Transfusion Reaction / Comment(s): Pt recieved blood in past without reaction (after childbirth) Smoking Status: Former smoker - Past Family History Father Additional Family Medical History / Comment(s): Father from an industrial exposure at the age of 42 yrs. Mother Family Medical History: No Reported History Additional Family Medical History / Comment(s): Mother lived to be 95 yrs old. Medications and Allergies Home Medications Medication Instructions Recorded Confirmed Type FLUoxetine HCL [PROzac] 40 mg PO DAILY 10/18/18 06/20/21 History Metoprolol Tartrate [Lopressor] 50 mg PO BID-W/MEALS 10/18/18 06/20/21 History Oxybutynin Chloride [Ditropan] 5 mg PO DAILY 10/18/18 06/20/21 History Furosemide [Lasix] 20 mg PO DAILY 12/31/18 06/20/21 History Acetaminophen [Tylenol Extra 1,000 mg PO BID 06/20/21 06/20/21 History Strength] Calcium Acetate [Phoslo] 667 mg PO TID 06/20/21 06/20/21 History Insulin Lispro Protamin/Lispro 12 unit SQ AC-BRKFST 06/20/21 06/20/21 History [humaLOG Mix 75-25 Kwikpen] Insulin Lispro Protamin/Lispro 15 unit SQ AC-SUPPER 06/20/21 06/20/21 History [humaLOG Mix 75-25 Kwikpen] Losartan Potassium 50 mg PO DAILY 06/20/21 06/20/21 History Oxybutynin Chloride [Ditropan] 10 mg PO HS 06/20/21 06/20/21 History Pravastatin Sodium [Pravachol] 40 mg PO DAILY 06/20/21 06/20/21 History Vit Low Iron Tab 1 tab PO DAILY 06/20/21 06/20/21 History Allergies Allergy/AdvReac Type Severity Reaction Status Date / Time codeine AdvReac Nausea & Verified 06/20/21 16:31 Vomiting Physical Exam Vitals: Vital Signs Temp Pulse Resp BP Pulse Ox 06/22/21 14:00 109 H 13 06/22/21 13:00 122 H 15 06/22/21 12:00 97.5 F L 109 H 19 98 06/22/21 11:00 128 H 10 L 107/69 97 06/22/21 10:00 102 H 11 L 137/62 97 06/22/21 09:00 83 13 97 06/22/21 08:00 98.1 F 89 13 97 06/22/21 07:00 86 12 97 06/22/21 06:00 84 12 97 06/22/21 05:00 88 11 L 96 06/22/21 04:00 98.3 F 85 16 97 06/22/21 03:14 24 06/22/21 03:00 84 12 126/55 97 06/22/21 02:00 84 11 L 105/48 98 06/22/21 00:00 98.1 F 84 14 114/56 95 06/21/21 23:18 14 06/21/21 23:00 78 14 108/47 97 06/21/21 22:00 75 12 97 06/21/21 21:00 75 12 96 06/21/21 20:00 98.1 F 77 12 98 06/21/21 19:00 74 12 111/48 97 06/21/21 18:00 74 12 117/48 97 06/21/21 17:00 75 12 112/47 97 06/21/21 16:00 70 14 99/56 97 Intake and Output 06/21/21 06/22/21 06/22/21 23:59 06:59 14:59 Intake Total 1000 Output Total 430 Balance 570 Intake: IV 1000 0.9 1000 Output: Urine 430 Stool Other: Voiding Method Indwelling Catheter Weight ABP, PAP, CO, CI - Last 8 Hours Arterial Blood Pressure 111/41 Arterial Blood Pressure 146/53 Arterial Blood Pressure 154/59 Arterial Blood Pressure 128/49 Arterial Blood Pressure 144/56 Arterial Blood Pressure 139/44 Arterial Blood Pressure 127/42 Arterial Blood Pressure 141/48 Results 06/22/21 03:00 06/22/21 03:00 CBC 06/22/21 Range/Units 03:00 WBC 14.0 H (3.8-10.6) k/uL RBC 3.18 L (3.80-5.40) m/uL Hgb 10.2 L (11.4-16.0) gm/dL Hct 32.5 L (34.0-46.0) % Plt Count 252 (150-450) k/uL Comprehensive Metabolic Panel 06/22/21 Range/Units 03:00 Sodium 137 (137-145) mmol/L Potassium 5.0 (3.5-5.1) mmol/L Chloride 114 H (98-107) mmol/L Carbon Dioxide 19 L (22-30) mmol/L BUN 45 H (7-17) mg/dL Creatinine 2.21 H (0.52-1.04) mg/dL Glucose 98 (74-99) mg/dL Calcium 6.8 L (8.4-10.2) mg/dL Current Medications Generic Name Dose Route Start Last Admin Trade Name Freq PRN Reason Stop Dose Admin Acetaminophen 650 mg 06/20/21 15:39 Acetaminophen Tab 325 Mg Tab PO Q6HR PRN Mild Pain or Fever > 100.5 Heparin Sodium (Porcine) 5,000 unit 06/21/21 00:00 06/22/21 09:26 Heparin Sodium,Porcine/Pf 5,000 Unit/0.5 Ml Syringe SQ 5,000 unit Q8HR STEPHANIE Administration Hydromorphone HCl 0.5 mg 06/21/21 14:34 06/22/21 11:57 Hydromorphone 0.5 Mg/0.5 Ml Syringe IVP 0.5 mg Q2HR PRN Administration Moderate to Severe Pain Acetaminophen 1,000 mg/ IV 100 mls @ 400 mls/hr 06/21/21 00:00 06/22/21 13:11 Solution IVPB 400 mls/hr Q6HR STEPHANIE Administration Piperacillin Sod/Tazobactam 100 mls @ 25 mls/hr 06/21/21 05:00 06/22/21 04:35 Sod 3.375 gm/ Sodium Chloride IVPB 25 mls/hr Q12H STEPHANIE Administration Sodium Chloride 1,000 mls @ 125 mls/hr 06/21/21 11:30 06/22/21 14:56 Saline 0.9% IV 125 mls/hr .Q8H STEPHANIE Administration Ibuprofen 600 mg 06/21/21 10:19 Ibuprofen 600 Mg Tab PO Q6HR PRN Pain Naloxone HCl 0.2 mg 06/20/21 15:39 Naloxone 0.4 Mg/Ml 1 Ml Vial IV Q2M PRN Opioid Reversal Ondansetron HCl 4 mg 06/20/21 15:39 Ondansetron 4 Mg/2 Ml Vial IVP Q4H PRN Nausea And Vomiting Pantoprazole Sodium 40 mg 06/21/21 09:00 06/22/21 09:26 Pantoprazole 40 Mg/10 Ml Vial IV 40 mg DAILY STEPHANIE Administration Tramadol HCl 50 mg 06/21/21 10:19 Tramadol 50 Mg Tab PO Q6HR PRN Breakthrough Pain Intake and Output 06/21/21 06/22/21 06/22/21 23:59 06:59 14:59 Intake Total 1000 Output Total 430 Balance 570 Intake: IV 1000 0.9 1000 Output: Urine 430 Stool Other: Voiding Method Indwelling Catheter Weight 06/22/21 03:00 06/22/21 03:00
[2021-06-22] MEDS: METOPROLOL TARTRATE 50 MG TAB PO SCH ×2 (15:34→20:10)
[2021-06-23] MEDS: SODIUM CHLORIDE 0.9% 1,000 ML IV SCH ×2 (04:36→13:06)
[2021-06-23] MEDS: PIPERACILLIN-TAZOBACTAM 3.375 GM in SODIUM CHLORIDE 0.9% 100 ML IVPB SCH ×2 (05:17→17:17)
[2021-06-23] MEDS: HYDROmorphone 0.5 MG/0.5 ML SYRINGE IVP PRN ×3 (05:18→14:41)
[2021-06-23 05:53] LABS: Basophils % (A) 0 %; Eosinophils # (A) 0.1 k/uL (0-0.7); Eosinophils % (A) 1 %; HCT 33.7 % (34.0-46.0); HGB 10.3 gm/dL (11.4-16.0); Hypochromasia Moderate; Lymphocytes # (A) 1.6 k/uL (1.0-4.8); Lymphocytes % (A) 13 %; MCH 31.7 pg (25.0-35.0); MCHC 30.4 g/dL (31.0-37.0); MCV 104.3 fL (80.0-100.0); Macrocytosis Slight; Mean Platelet Volume 8.3; Monocytes # (A) 0.6 k/uL (0-1.0); Monocytes % (A) 5 %; Neutrophils # (A) 9.6 k/uL (1.3-7.7); Neutrophils % (A) 79 %; Platelet Count 245 k/uL (150-450); RBC 3.23 m/uL (3.80-5.40); RDW 12.5 % (11.5-15.5); WBC 12.1 k/uL (3.8-10.6)
[2021-06-23] MEDS: ACETAMINOPHEN IV (For NPO) 1,000 MG in EMPTY BAG 1 BAG IVPB SCH ×4 (06:12→23:14)
--- NOTE | 2021-06-23 06:20 | XR ---
EXAMINATION TYPE: XR chest 1V portable DATE OF EXAM: 06/23/2021 CLINICAL HISTORY: Difficulty breathing progress study. TECHNIQUE: Single AP portable upright view of the chest is obtained. COMPARISON: Chest x-ray from 2 days earlier and older studies. FINDINGS: Stable cardiomegaly. Bibasilar opacities on current study. Suspect small 2 tiny left great er than right pleural effusions. Osseous structures remain somewhat demineralized. IMPRESSION: Cardiomegaly with patchy bibasilar acute infiltrate and/or atelectasis redemonstrated. Sm all to tiny left greater than right pleural effusions now present.
[2021-06-23 06:21] LABS: Albumin 2.1 g/dL (3.5-5.0); Calcium 7.7 mg/dL (8.4-10.2); Potassium 4.8 mmol/L (3.5-5.1); Total Bilirubin 0.2 mg/dL (0.2-1.3)
[2021-06-23] MEDS: HEPARIN SODIUM,PORCINE/PF 5,000 UNIT/0.5 ML SYRINGE SQ SCH ×3 (08:08→20:06)
[2021-06-23] MEDS: METOPROLOL TARTRATE 50 MG TAB PO SCH ×2 (08:08→20:06)
[2021-06-23] MEDS: PANTOPRAZOLE 40 MG/10 ML VIAL IV SCH (08:08)
--- NOTE | 2021-06-23 09:05 | P.PN ---
Subjective Progress Note Date: 06/23/21 80-year-old female who presented to the emergency department on 06/20/21, complaining of abdominal pain. She apparently is been having abdominal pain on and off for 1 week. Her abdomen felt distended. She also had episodes of both nausea and vomiting. She could not eat. She also had constipation, and some occasional soft bowel movements. There are no fever or chills. A CT of the abdomen and pelvis showed evidence of markedly dilated colonic loops to the level of the sigmoid colon. In addition, there was a 3.5 cm lesion in the area of the right ovary, potentially consistent with ovarian carcinoma. The patient underwent a exploratory laparotomy, with colectomy, ileostomy, and mucous fistul a. The surgery was done by Dr. Bailey. Today, he is postop day #3. She is on 2 L nasal cannula, and saline at 125 mL an hour. Chest x-ray was consistent with mild cardiomegaly and mild pulmonary vascular congestion. She does have some gram-negative bacilli in her urine and she is currently on Zosyn. the Patient Remains on the Same Oxygen Level Which Is 2 L Per Minute Nasal Cannula. Chest X-Ray Shows No Acute Abnormalities. No Evidence of a Pneumoperitoneum. Lungs Are Adequately Expanded. In Terms of the Ileostomy, and It Is Functional and the Patient Has Some Positive Output within the Bag. The Patient Is Taking Clear Liquid Diet. She Is Using Incentive Spirometer, Pulling Approximately 500 ML on Her Eye As. She Is Awake and Alert. She Is Communicating. No Confusion. The Patient Remains on IV Zosyn. Urine Culture Was Positive for E. coli. Noted Overnight, the Patient Had a Bout of Atrial Fibrillation and the Patient Receives Her Home Dose of Metoprolol and Currently She Is at a Dose of 50 Mg by Mouth Twice a Day. She Did Ultimately Converted Back into Normal Sinus Rhythm. She Is on No Anticoagulants for Now Other Than Subcu Heparin. At Home, and on Outpatient Basis, the Patient Was Not Receiving Any Form of Anticoagulants. Objective - Vital Signs Vital signs: Vital Signs Temp 97.7 F 06/23/21 08:00 Pulse 66 06/23/21 08:00 Resp 12 06/23/21 08:00 BP 148/84 06/23/21 08:00 Pulse Ox 98 06/23/21 08:00 Intake & Output 06/22/21 06/23/2106/23/21 18:59 06:59 18:59 Intake Total 1650 1750 Output Total 1190 1200 Balance 460 550 Weight 85.1 kg Intake: IV 1500 1700 0.9 1500 1500 ACETAMINOPHEN IV (For NPO 100 ) 1,000 mg In Empty Bag 1 bag @ 400 mls/hr IVPB Q6HR STEPHANIE Rx#:[id number] Piperacillin-Tazobactam 3 100 .375 gm In Sodium Chloride 0.9% 100 ml @ 25 mls/hr IVPB Q12H STEPHANIE Rx# :[id number] Oral 150 50 Output: Urine 740 750 Stool 450 450 Other: Voiding Method Indwelling Catheter Indwelling Catheter ABP, PAP, CO, CI - Last Documented Arterial Blood Pressure 158/54 - Exam No acute distress, oriented 3. Currently on 2 L nasal cannula. HEENT examination is grossly unremarkable. Neck supple. Full range of motion. No adenopathy thyromegaly or neck vein distention. Cardiovascular examination reveals regular rhythm rate. S1-S2 normal. No S3 or S4. No discernible murmur noted. 2 L. Heart sounds are distant. Lungs reveal mostly clear breath sounds. Scattered rhonchi. No wheezes or crackles. Abdomen soft without bowel sounds. 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 Extremities are intact. No cyanosis clubbing or edema. Skin is without rash or lesion. Neurologic examination is brief but nonfocal.lean - Labs CBC & Chem 7: 06/23/21 05:45 06/23/21 05:45 Labs: Abnormal Lab Results - Last 24 Hours (Table) 06/23/21 06/23/21 Range/Units 05:45 05:45 WBC 12.1 H (3.8-10.6) k/uL RBC 3.23 L (3.80-5.40) m/uL Hgb 10.3 L (11.4-16.0) gm/dL Hct 33.7 L (34.0-46.0) % MCV 104.3 H (80.0-100.0) fL MCHC 30.4 L (31.0-37.0) g/dL Neutrophils # 9.6 H (1.3-7.7) k/uL Chloride 119 H (98-107) mmol/L Carbon Dioxide 18 L (22-30) mmol/L BUN 33 H (7-17) mg/dL Creatinine 1.96 H (0.52-1.04) mg/dL Glucose 101 H (74-99) mg/dL Calcium 7.7 L (8.4-10.2) mg/dL Alkaline Phosphatase 129 H (38-126) U/L Total Protein 5.0 L (6.3-8.2) g/dL Albumin 2.1 L (3.5-5.0) g/dL Microbiology - Last 24 Hours (Table) 06/20/21 13:29 Urine Culture - Final Urine,Catheterized Escherichia coli Assessment and Plan Plan: 1 Postop day #3, status post exploratory laparotomy, colectomy with colostomy, repair of umbilicus hernia and mucous fistula, secondary to colonic obstruction with pneumatosis and umbilicus hernia. 2 acute leukocytosis, improving 3 CKD with a component of an acute kidney injury, improving 4 Right ovarian lesion. 5 History of CHF. Last echo from 12/2018 showed EF less than 20% with mild mitral regurgitation. She believes she had a prior heart catheterization where she was told she did not have significant blockages. 6 History of diabetes mellitus. 7 History of hyperlipidemia. 8 History of hypertension. 9 recurrent UTIs 10 paroxysmal atrial fibrillation, Current Rhythm Is Back to Sinus and the Patient Is on No Anticoagulants on Outpatient Basis, She Is on Metoprolol 50 Mg by Mouth Twice a Day. 11 COPD 12 peripheral neuropathy plan Reduce IVF to 75 ML an Hour Continue IV Zosyn at the Same Current Dose and the Patient Is Showing E. coli in Her Urine Advance Diet As Tolerated, Consider Soft Continue Using Incentive Spirometer and Increased Mobility and Increase It up on a Chair Continue Metoprolol for Now I Do Not Think There Is Any Immediate Need for Anticoagulation. This Will Be Left up with Cardiology and the Surgical Team. Her Current Rhythm Is Sinus the Patient Can Transfer to Medical Surgical Floor with Telemetry
--- NOTE | 2021-06-23 11:00 | ECHOF ---
Referral Reason:re: EF MEASUREMENTS -------- HEIGHT: 154.9 cm WEIGHT: 84.8 kg BP: RVIDd: 4.9 cm (< 3.3) IVSd: 1.5 cm (0.6 - 1.1) LVIDd: 4.6 cm (3.9 - 5.3) LVPWd: 1.4 cm (0.6 - 1.1) IVSs: 1.3 cm LVIDs: 3.0 cm LVPWs: 1.6 cm Ao Diam: 2.6 cm (2.0 - 3.7) AV Cusp: 1.7 cm (1.5 - 2.6) LA Diam: 4.2 cm (2.7 - 3.8) MV EXCURSION: 15.279 mm (> 18.000) MV EF SLOPE: 46 mm/s (70 - 150) EPSS: 0.5 cm MV E Robby: 1.22 m/s MV DecT: 167 ms MV A Robby: 0.97 m/s MV E/A Ratio: 1.26 RAP: 5.00 mmHg RVSP: 87.24 mmHg FINDINGS -------- Sinus rhythm. This was a technically adequate study. The left ventricular size is normal. There is moderate concentric left ventricular hypertrophy. O verall left ventricular systolic function is normal with, an EF between 55 - 60 %. The right ventricle is severely enlarged. The left atrium is mildly dilated. The right atrial size is normal. Interatrial and interventricular septum intact. The aortic valve was not well visualized. There is mild aortic valve sclerosis. There is no evide nce of aortic regurgitation. There is no evidence of aortic stenosis. Moderate mitral annular calcification present. Mild mitral regurgitation is present. Moderate tricuspid regurgitation present. There is severe pulmonary hypertension. The right ventr icular systolic pressure, as measured by Doppler, is 87.24mmHg. The pulmonic valve was not well visualized. The aortic root size is normal. IVC Not well visulized. There is no pericardial effusion. CONCLUSIONS -------- 1. There is moderate concentric left ventricular hypertrophy. 2. Overall left ventricular systolic function is normal with, an EF between 55 - 60 %. 3. The right ventricle is severely enlarged. 4. The left atrium is mildly dilated. 5. There is mild aortic valve sclerosis. 6. Moderate mitral annular calcification present. 7. Mild mitral regurgitation is present. 8. Moderate tricuspid regurgitation present. 9. There is severe pulmonary hypertension. 10. The right ventricular systolic pressure, as measured by Doppler, is 87.24mmHg. FRONT OFFICE SECRETARY: Agnieszka Troy RDCS
--- NOTE | 2021-06-23 11:35 | P.PN ---
Subjective Progress Note Date: 06/23/21 Principal diagnosis: Colon obstruction Patient doing well today. Minimal pain. She is having good ostomy output at this time. She is afebrile. White blood cell count 12.1, creatinine improved Objective - Vital Signs Vital signs: Vital Signs Temp 97.7 F 06/23/21 08:00 Pulse 66 06/23/21 08:00 Resp 12 06/23/21 08:00 BP 148/84 06/23/21 08:00 Pulse Ox 98 06/23/21 08:00 Intake & Output 06/22/21 06/23/21 06/23/21 18:59 06:59 18:59 Intake Total 1650 1750 450 Output Total 1190 1200 350 Balance 460 550 100 Weight 85.1 kg Intake: IV 1500 1700 250 0.9 1500 1500 250 ACETAMINOPHEN IV (For NPO 100 ) 1,000 mg In Empty Bag 1 bag @ 400 mls/hr IVPB Q6HR STEPHANIE Rx#:[id number] Piperacillin-Tazobactam 3 100 .375 gm In Sodium Chloride 0.9% 100 ml @ 25 mls/hr IVPB Q12H STEPHANIE Rx# :[id number] Oral 150 50 200 Output: Urine 740 750 Stool 450 450 350 Other: Voiding Method Indwelling Catheter Indwelling Catheter Indwelling Catheter ABP, PAP, CO, CI - Last Documented Arterial Blood Pressure 158/54 - Exam Abdomen: Soft, nondistended, dressing clean and dry, ostomy functioning - Labs CBC & Chem 7: 06/23/21 05:45 06/23/21 05:45 Labs: Abnormal Lab Results - Last 24 Hours (Table) 06/23/21 06/23/21 Range/Units 05:45 05:45 WBC 12.1 H (3.8-10.6) k/uL RBC 3.23 L (3.80-5.40) m/uL Hgb 10.3 L (11.4-16.0) gm/dL Hct 33.7 L (34.0-46.0) % MCV 104.3 H (80.0-100.0) fL MCHC 30.4 L (31.0-37.0) g/dL Neutrophils # 9.6 H (1.3-7.7) k/uL Chloride 119 H (98-107) mmol/L Carbon Dioxide 18 L (22-30) mmol/L BUN 33 H (7-17) mg/dL Creatinine 1.96 H (0.52-1.04) mg/dL Glucose 101 H (74-99) mg/dL Calcium 7.7 L (8.4-10.2) mg/dL Alkaline Phosphatase 129 H (38-126) U/L Total Protein 5.0 L (6.3-8.2) g/dL Albumin 2.1 L (3.5-5.0) g/dL Microbiology - Last 24 Hours (Table) 06/20/21 13:29 Urine Culture - Final Urine,Catheterized Escherichia coli Assessment and Plan (1) Pneumatosis intestinalis Narrative/Plan: Overall patient doing fairly well. Continue advancing diet gradually. Increase activity. May begin anticoagulation if necessary. Current Visit: Yes Status: Acute Code(s): K63.89 - OTHER SPECIFIED DISEASES OF INTESTINE SNOMED Code(s): 32965781
[2021-06-23] MEDS ORDERED: IPRATROPIUM-ALBUTEROL 3 ML NEB INHALATION PRN (12:32)
--- NOTE | 2021-06-23 12:35 | P.PN ---
Subjective Progress Note Date: 06/23/21 HISTORY OF PRESENT ILLNESS 80-year-old female one of Dr. Sanchez's patient with past medical history of CAD, hypertension, hyperlipidemia, recurrent urinary tract infection who presented to [facility] today after an episode of increase abdominal pain and distention specially in the right side with worsening nausea and vomiting with significant decrease in appetite has not had much to eat or drink. The time was seen to have significant leukocytosis with white blood cell 25,000 mild elevated lactic acid. CAT scan of the abdomen showed significant colonic distention with evidence of right-sided ischemic change with pneumatosis intestinalis. Patient started looking more toxic at this point. Patient was seen Dr. gipson and was taking from the emergency department to the OR for partial resection in the having exploratory laparotomy with right sided colectomy and end ileostomy with mucous fistula repair. Umbilical hernia. She was started on Zosyn, pain management, IV resuscitation along with DVT prophylaxis and admitted to the ICU after surgery. 06/21: Patient was hemodynamically not stable after her surgery was transferred to the ICU, patient surgery was consistent with dilated loop of bowel in the sigmoid with 3.5 cm lesion in the right ovary potential ovarian cancer her laparotomy with colectomy ileostomy and mucous fistula was done and patient is doing much better today except her potassium was quite bit high at 6.0 patient is making enough urine at this point with creatinine at 2.63, will continue hydration nephrology be consult at and treatment for hyperkalemia will be done. 06/22: Patient states 2 post exploratory surgery with colectomy, ileostomy in the right side fistula in the left side with repair of umbilical hernia. Patient is doing well her intake through the ostomy has been doing better, patient has not had much oral intake this point and still on Zosyn antibiotic-neely her microbiology came back as a gram-negative bacillary in the urine. Her creatinine is tiny bit down compared to yesterday patient is making good urine output this point. 06/23: Patient is seen today in the ICU, she has been downgraded and is waiting for [facility] bed. Patient is having good output from the ostomy, no significant rectal output. Patient is currently on clear liquid diet to be advanced to full liquid diet at lunch today. Beckett catheter has been removed and patient is waiting to void. Patient was seen yesterday by cardiology for A. fib with mild RVR with history of proximal A. fib. Patient was resumed on her metoprolol and patient most likely will start anticoagulation once cleared by general surgery. phototypesetting equipment monitor sinus rhythm. Echocardiogram reveals EF of 55-60%, moderate mitral annular calcification, mild mitral regurgitation, moderate tricuspid regurgitation, severe pulmonary hypertension. Chest x-ray reveals cardiomegaly with patchy bibasilar acute infiltrate and/or atelectasis redemonstrated. Small to tiny left greater than right pleural effusions now present. Patient is reaching 750-1000 on incentive spirometry. Patient is afebrile, heart rate 66, blood pressure 148/84, pulse ox 98% on 2 L nasal cannula. WBC 12.1, hemoglobin 10.3, platelet count 245. Sodium 144, potassium 4.8, chloride 119, CO2 18, BUN 33 creatinine 1.96. Blood sugar 101. Calcium 7.7. Alkaline phosphatase 129. REVIEW OF SYSTEMS Constitutional: No fever, no chills, no night sweats. No weight change. No weakness, fatigue or lethargy. No daytime sleepiness. Slightly confused does not look in any respiratory distress. EENT: No headache. No blurred vision or double vision, no loss of vision. No loss of Hearing, no ringing in the ears, no dizziness. No nasal drainage or congestion. No epistaxis. No sore throat. Lungs: No shortness of breath, cough, no sputum production. No wheezing. Cardiovascular: Mild PND and orthopnea and no chest pain slight edema of the lower extremity mild palpitation with exertion. Abdominal: Significant distention with mild abdominal discomfort more than pain with significant nausea vomiting positive an episode of large bowel movement at the time with no blood in it. Significant decrease in appetite. Genitourinary: No dysuria, increased frequency, urgency. No urinary retention. Decrease urine output. Musculoskeletal: No myalgias. No muscle weakness, no gait dysfunction, no frequent falls. No back pain. No neck pain. Integumentary: No wounds, no lesions. No rash or pruritus. No unusual bruising. Neurologic: No motor deficit visualized weakness had slight change mental status. Psychiatric: No depression. No anxiety. No mood swings. Endocrine: No abnormal blood sugars. No weight change. PHYSICAL EXAMINATION Gen: This is an a 80-year-old female. Patient is resting in the recliner and appears to be comfortable. HEENT: Head is atraumatic, normocephalic. Pupils equal, round. Sclerae is anicteric. NECK: Supple. No JVD. No lymphadenopathy. No thyromegaly. LUNGS: Decreased breath some bilateral rhonchi and mild expiratory wheezes. HEART: Irregular rate and rhythm. Mild tachycardia. ABDOMEN: Surgical site excluded patient had to ostomy bag 1 his ileostomy another one is fistula drain bag. Ileostomy stoma is beefy red. No abdominal tenderness cardiac cath rn is sinus rhythm.. EXTREMITIES: No pedal edema. No calf tenderness. NEUROLOGICAL: Patient is awake, alert with slight confusion. Cranial nerves 2 through 12 are grossly intact. ASSESSMENT AND PLAN 1. Abdominal pain: Most likely from ischemic colitis with slight early perforation, patient went for surgery with colectomy, ileostomy and mucous fistula repair, and umbilical hernia repair as well. Diet advanced to full liquids, transferred to [facility], continue Zosyn 3.375 g IV piggyback every 12 hours. 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 Incision looks fine. 3 bowel obstruction: Most likely caused by pneumatosis intestinalis along with ischemic colitis: Will be going for exploratory surgery correction. 4. Paroxysmal atrial fibrillation. Cardiology consult appreciated. Patient's been started on Lopressor 50 mg twice daily. Patient most likely will be started on anticoagulation once cleared by general surgery. 5. Chronic diastolic heart failure. Continue metipranolol. 6. Acute kidney injury with chronic kidney disease stage III or 4. Avoid nephrotoxic agents, continue to monitor. Continue PhosLo 667 mg 3 times daily. Discontinue Motrin. Tylenol as needed for pain. 7. Acute blood loss anemia with hemoglobin dropped 3 g, expected with surgery. Continue to monitor, transfuse if hemoglobin less than 7. 8. Diabetes mellitus type 2. Patient will be started on NovoLog scale before meals and at bedtime. Patient is on Humalog 7525 12 units with breakfast and 15 units with supper currently on hold. 9. Peripheral diabetic neuropathy 7 chronic neuropathy: Has been on Lyrica 75 mg twice a day. 10. Hyperlipidemia. Patient will be resumed on pravastatin 40 mg daily. 11. Chronic edema. Hold Lasix. 12. COPD without exacerbation. DuoNeb treatments as needed. 13. DVT prophylaxis. Patient is on heparin subcu. CODE STATUS: Full code. DISCHARGE PLAN Subacute rehab at [facility], PT and OT consults Impression and plan of care have been directed as dictated by the signing physician. Thais Scott nurse practitioner acting as scribe for signing physician. Objective - Vital Signs Vital signs: Vital Signs Temp 97.7 F 06/23/21 08:00 Pulse 66 06/23/21 08:00 Resp 12 06/23/21 08:00 BP 148/84 06/23/21 08:00 Pulse Ox 98 06/23/21 08:00 Intake & Output 06/22/21 06/23/21 06/23/21 18:59 06:59 18:59 Intake Total 1650 1750 450 Output Total 1190 1200 350 Balance 460 550 100 Weight 85.1 kg Intake: IV 1500 1700 250 0.9 1500 1500 250 ACETAMINOPHEN IV (For NPO 100 ) 1,000 mg In Empty Bag 1 bag @ 400 mls/hr IVPB Q6HR STEPHANIE Rx#:[id number] Piperacillin-Tazobactam 3 100 .375 gm In Sodium Chloride 0.9% 100 ml @ 25 mls/hr IVPB Q12H STEPHANIE Rx# :[id number] Oral 150 50 200 Output: Urine 740 750 Stool 450 450 350 Other: Voiding Method Indwelling Catheter Indwelling Catheter Indwelling Catheter ABP, PAP, CO, CI - Last Documented Arterial Blood Pressure 158/54 - Labs CBC & Chem 7: 06/23/21 05:45 06/23/21 05:45 Labs: Abnormal Lab Results - Last 24 Hours (Table) 06/23/21 06/23/21 Range/Units 05:45 05:45 WBC 12.1 H (3.8-10.6) k/uL RBC 3.23 L (3.80-5.40) m/uL Hgb 10.3 L (11.4-16.0) gm/dL Hct 33.7 L (34.0-46.0) % MCV 104.3 H (80.0-100.0) fL MCHC 30.4 L (31.0-37.0) g/dL Neutrophils # 9.6 H (1.3-7.7) k/uL Chloride 119 H (98-107) mmol/L Carbon Dioxide 18 L (22-30) mmol/L BUN 33 H (7-17) mg/dL Creatinine 1.96 H (0.52-1.04) mg/dL Glucose 101 H (74-99) mg/dL Calcium 7.7 L (8.4-10.2) mg/dL Alkaline Phosphatase 129 H (38-126) U/L Total Protein 5.0 L (6.3-8.2) g/dL Albumin 2.1 L (3.5-5.0) g/dL Microbiology - Last 24 Hours (Table) 06/20/21 13:29 Urine Culture - Final Urine,Catheterized Escherichia coli
[2021-06-23 13:02] LABS: Glucose,Whole Blood 196 mg/dL (75-99)
[2021-06-23] MEDS: INSULIN ASPART (NovoLOG) 100 UNIT/ML VIAL SQ SCH ×3 (13:12→21:14)
[2021-06-23 16:26] LABS: Glucose,Whole Blood 180 mg/dL (75-99)
[2021-06-23] MEDS: CALCIUM ACETATE 667 MG TAB PO SCH ×2 (16:44→20:06)
--- NOTE | 2021-06-23 17:03 | P.PN ---
Subjective Progress Note Date: 06/23/21 This is a 80-year-old female with history of paroxysmal atrial fibrillation was admitted to the hospital with abdominal pain. Computed tomography scan showed evidence of bowel obstruction. She underwent exploratory laparotomy with colectomy, ileostomy and fistula formation. Chest x-ray showed mild vascular congestion. Patient is a sitting in the chair and feeling well. Denies any chest pain or shortness of breath. She seemed to be in sinus rhythm. She was on anticoagulation for atrial fibrillation the past. Dr. Bailey recommended that patient could go back on anticoagulation. If patient remains stable, that can be done from tomorrow. Lungs are clear. Heart is regular. 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 Objective - Vital Signs Vital signs: Vital Signs Temp 97.9 F 06/23/21 14:00 Pulse 78 06/23/21 14:00 Resp 18 06/23/21 14:00 BP 132/64 06/23/21 14:00 Pulse Ox 96 06/23/21 14:00 Intake & Output 06/22/21 06/23/21 06/23/21 18:59 06:59 18:59 Intake Total 1650 1750 450 Output Total 1190 1200 350 Balance 460 550 100 Weight 85.1 kg Intake: IV 1500 1700 250 0.9 1500 1500 250 ACETAMINOPHEN IV (For NPO 100 ) 1,000 mg In Empty Bag 1 bag @ 400 mls/hr IVPB Q6HR STEPHANIE Rx#:[id number] Piperacillin-Tazobactam 3 100 .375 gm In Sodium Chloride 0.9% 100 ml @ 25 mls/hr IVPB Q12H STEPHANIE Rx# :[id number] Oral 150 50 200 Output: Urine 740 750 Stool 450 450 350 Other: Voiding Method Indwelling Catheter Indwelling Catheter Indwelling Catheter ABP, PAP, CO, CI - Last Documented Arterial Blood Pressure 158/54 - Exam GENERAL EXAM: Patient is alert and oriented and doesn't appear to be in any acute distress HEENT: Normocephalic. Normal reaction of pupils, equal size, normal range of extraocular motion. No erythema or exudates in the throat. NECK: No masses, no nuchal rigidity. CHEST: No chest wall deformity. LUNGS: Equal air entry with no crackles or wheeze. HEART: S1 and S2 normal with no audible mumurs or gallops. Regular rhythm, femorals equal on both sides.. ABDOMEN: Postsurgical SKIN: No rashes CENTRAL NERVOUS SYSTEM: No focal deficits. EXTREMITIES: No cyanosis, clubbing or edema. - Labs CBC & Chem 7: 06/23/21 05:45 06/23/21 05:45 Labs: Abnormal Lab Results - Last 24 Hours (Table) 06/23/21 06/23/21 06/23/21 Range/Units 05:45 05:45 13:00 WBC 12.1 H (3.8-10.6) k/uL RBC 3.23 L (3.80-5.40) m/uL Hgb 10.3 L (11.4-16.0) gm/dL Hct 33.7 L (34.0-46.0) % MCV 104.3 H (80.0-100.0) fL MCHC 30.4 L (31.0-37.0) g/dL Neutrophils # 9.6 H (1.3-7.7) k/uL Chloride 119 H (98-107) mmol/L Carbon Dioxide 18 L (22-30) mmol/L BUN 33 H (7-17) mg/dL Creatinine 1.96 H (0.52-1.04) mg/dL Glucose 101 H (74-99) mg/dL POC Glucose (mg/dL) 196 H (75-99) mg/dL Calcium 7.7 L (8.4-10.2) mg/dL Alkaline Phosphatase 129 H (38-126) U/L Total Protein 5.0 L (6.3-8.2) g/dL Albumin 2.1 L (3.5-5.0) g/dL 06/23/21 Range/Units 16:25 WBC (3.8-10.6) k/uL RBC (3.80-5.40) m/uL Hgb (11.4-16.0) gm/dL Hct (34.0-46.0) % MCV (80.0-100.0) fL MCHC (31.0-37.0) g/dL Neutrophils # (1.3-7.7) k/uL Chloride (98-107) mmol/L Carbon Dioxide (22-30) mmol/L BUN (7-17) mg/dL Creatinine (0.52-1.04) mg/dL Glucose (74-99) mg/dL POC Glucose (mg/dL) 180 H (75-99) mg/dL Calcium (8.4-10.2) mg/dL Alkaline Phosphatase (38-126) U/L Total Protein (6.3-8.2) g/dL Albumin (3.5-5.0) g/dL Microbiology - Last 24 Hours (Table) 06/20/21 13:29 Urine Culture - Final Urine,Catheterized Escherichia coli Assessment and Plan (1) Bowel obstruction Current Visit: Yes Status: Acute Code(s): K56.609 - UNSP INTESTNL OBST, UNSP TO PARTIAL VERSUS COMPLETE OBST SNOMED Code(s): 55723236 (2) Essential hypertension Current Visit: No Status: Acute Code(s): I10 - ESSENTIAL (PRIMARY) HYPERTENSION SNOMED Code(s): 96853278 (3) Atrial fibrillation Current Visit: Yes Status: Acute Code(s): I48.91 - UNSPECIFIED ATRIAL FIBRILLATION SNOMED Code(s): 82548051 Plan: Patient is status post exploratory laparotomy with colectomy and ileostomy and mucous fistula. Patient seemed to do fairly well and sitting in the chair. No significant arrhythmias. Patient will stay on the current medical therapy. We will probably resume anti-cognition from tomorrow
[2021-06-23] MEDS: traMADol 50 MG TAB PO PRN (20:05)
[2021-06-23 20:43] LABS: Glucose,Whole Blood 189 mg/dL (75-99)
[2021-06-23] MEDS: ONDANSETRON 4 MG/2 ML VIAL IVP PRN (23:18)
[2021-06-24] MEDS: PIPERACILLIN-TAZOBACTAM 3.375 GM in SODIUM CHLORIDE 0.9% 100 ML IVPB SCH ×2 (05:19→17:20)
[2021-06-24] MEDS: SODIUM CHLORIDE 0.9% 1,000 ML IV SCH (05:19)
[2021-06-24 05:47] LABS: Basophils % (A) 0 %; Eosinophils # (A) 0.3 k/uL (0-0.7); Eosinophils % (A) 2 %; HCT 34.7 % (34.0-46.0); Hypochromasia Slight; Lymphocytes # (A) 2.2 k/uL (1.0-4.8); Lymphocytes % (A) 17 %; MCH 32.8 pg (25.0-35.0); MCHC 31.6 g/dL (31.0-37.0); MCV 103.8 fL (80.0-100.0); Macrocytosis Slight; Mean Platelet Volume 8.1; Monocytes # (A) 0.6 k/uL (0-1.0); Monocytes % (A) 4 %; Neutrophils % (A) 75 %; Platelet Count 208 k/uL (150-450); RBC 3.34 m/uL (3.80-5.40); RDW 13.4 % (11.5-15.5); WBC 13.3 k/uL (3.8-10.6)
[2021-06-24 07:04] LABS: Glucose,Whole Blood 106 mg/dL (75-99)
[2021-06-24] MEDS: HEPARIN SODIUM,PORCINE/PF 5,000 UNIT/0.5 ML SYRINGE SQ SCH (08:23)
[2021-06-24] MEDS: INSULIN ASPART (NovoLOG) 100 UNIT/ML VIAL SQ SCH ×4 (08:25→20:08)
[2021-06-24] MEDS: ACETAMINOPHEN IV (For NPO) 1,000 MG in EMPTY BAG 1 BAG IVPB SCH ×4 (09:13→23:47)
[2021-06-24] MEDS: METOPROLOL TARTRATE 50 MG TAB PO SCH ×2 (09:14→20:08)
[2021-06-24] MEDS: FLUoxetine HCL 20 MG CAP PO SCH (09:14)
[2021-06-24] MEDS: CALCIUM ACETATE 667 MG TAB PO SCH ×3 (09:14→21:49)
[2021-06-24] MEDS: PANTOPRAZOLE 40 MG/10 ML VIAL IV SCH (09:14)
[2021-06-24] MEDS: PRAVASTATIN SODIUM 40 MG TAB PO SCH (09:15)
[2021-06-24] MEDS ORDERED: APIXABAN 5 MG TAB PO SCH (09:45)
--- NOTE | 2021-06-24 09:48 | P.PN ---
<Erika Collado - Last Filed: 06/24/21 13:29> Subjective Progress Note Date: 06/24/21 CHIEF COMPLAINT: Colon obstruction HISTORY OF PRESENT ILLNESS: 80-year-old female who came into the hospital with complaints of right-sided abdominal pain. Pain had been increasing over the last 1 week or so with the episodes of nausea and vomiting. Patient she was found to have significant leukocytosis CAT scan showing significant colonic distention with evidence of right-sided ischemic changes and pneumatosis intestinalis. She underwent exploratory laparotomy with right colectomy, end ileostomy, mucous fistula, repair of umbilical hernia on 06/20/2021. Today she is seen and evaluated states she is overall feeling well. She denies any nausea or vomiting. States she has some surgical discomfort however pain is well managed. She is having output from her ostomy. She has belching. She's been afebrile. WBC 13.3 hemoglobin 11.0. CMP currently pending. PHYSICAL EXAM: VITAL SIGNS: Reviewed. GENERAL: Well-developed in no acute distress. HEENT: No sclera icterus. Extraocular movements grossly intact. Moist buccal mucosa. Head is atraumatic, normocephalic. ABDOMEN: Soft. Nondistended. Nontender. Brown liquid output from ostomy. NEUROLOGIC: Alert and oriented. Cranial nerves II through XII grossly intact. ASSESSMENT: 1. Pneumatosis intestinalis status post exploratory laparotomy with right colectomy, end ileostomy, mucous fistula and repair of umbilical hernia 2. History of atrial fibrillation 3. UTI on Zosyn PLAN: -Continue full liquid diet -Encourage ambulation, physical therapy on consult -Encourage incentive spirometer -Discuss with cardiology they may begin anticoagulation if needed for atrial fibrillation The impression and plan of care has been dictated as directed. Dr. Alexei Bailey I performed a history and examination of this patient, discussed the same with the dictator. I agree with the dictator's note ,documented as a scribe. Any additional findings or plans will be noted. Objective - Vital Signs Vital signs: Vital Signs Temp 97.5 F L 06/24/21 06:50 Pulse 90 06/24/21 06:50 Resp 18 06/24/21 06:50 BP 159/76 06/24/21 06:50 Pulse Ox 96 06/24/21 06:50 Intake & Output 06/23/21 06/24/21 06/24/21 18:59 06:59 18:59 Intake Total 450 Output Total 850 500 Balance -400 -500 Intake: IV 250 0.9 250 Oral 200 Output: Urine 250 500 Stool 600 Other: Voiding Method Indwelling Catheter Indwelling Catheter ABP, PAP, CO, CI - Last Documented Arterial Blood Pressure 158/54 - Labs CBC & Chem 7: 06/24/21 04:55 06/24/21 04:55 Labs: Abnormal Lab Results - Last 24 Hours (Table) 06/23/21 06/23/21 06/23/21 Range/Units 13:00 16:25 20:41 WBC (3.8-10.6) k/uL RBC (3.80-5.40) m/uL Hgb (11.4-16.0) gm/dL MCV (80.0-100.0) fL Neutrophils # (1.3-7.7) k/uL POC Glucose (mg/dL) 196 H 180 H 189 H (75-99) mg/dL 06/24/21 06/24/21 Range/Units 04:55 07:02 WBC 13.3 H (3.8-10.6) k/uL RBC 3.34 L (3.80-5.40) m/uL Hgb 11.0 L (11.4-16.0) gm/dL MCV 103.8 H (80.0-100.0) fL Neutrophils # 10.0 H (1.3-7.7) k/uL POC Glucose (mg/dL) 106 H (75-99) mg/dL <Arash Bailey - Last Filed: 06/24/21 16:27> Subjective As above. Patient feeling somewhat nauseous today. She had some dry heaves earlier. She does have good ileostomy function however. Continue full liquids for now. Asked patient to only take in small amounts of diet currently. Plans for rehab later this week. Objective - Vital Signs Vital signs: Vital Signs Temp 98.5 F 06/24/21 12:19 Pulse 70 06/24/21 12:19 Resp 17 06/24/21 12:19 BP 156/72 06/24/21 12:19 Pulse Ox 93 L 06/24/21 12:19 Intake & Output 06/23/21 06/24/21 06/24/21 18:59 06:59 18:59 Intake Total 450 662.5 Output Total 850 500 650 Balance -400 -500 12.5 Intake: IV 250 100 0.9 250 ACETAMINOPHEN IV (For NPO 100 ) 1,000 mg In Empty Bag 1 bag @ 400 mls/hr IVPB Q6HR STEPHANIE Rx#:[id number] Intake, IV Titration 562.5 Amount Sodium Chloride 0.9% 1, 562.5 000 ml @ 75 mls/hr IV . [id number] STEPHANIE Rx#:[id number] Oral 200 Output: Urine 250 500 Stool 600 650 Other: Voiding Method Indwelling Catheter Indwelling Catheter Incontinent External Catheter ABP, PAP, CO, CI - Last Documented Arterial Blood Pressure 158/54 - Labs CBC & Chem 7: 06/24/21 04:55 06/24/21 04:55 Labs: Abnormal Lab Results - Last 24 Hours (Table) 06/23/21 06/23/21 06/24/21 Range/Units 16:25 20:41 04:55 WBC (3.8-10.6) k/uL RBC (3.80-5.40) m/uL Hgb (11.4-16.0) gm/dL MCV (80.0-100.0) fL Neutrophils # (1.3-7.7) k/uL Chloride (96-109) mmol/L Carbon Dioxide (21.6-31.8) mmol/L Creatinine (0.6-1.5) mg/dL Est GFR (CKD-EPI)AfAm (60.0-200.0) Est GFR (CKD-EPI)NonAf (60.0-200.0) Glucose (70-110) mg/dL POC Glucose (mg/dL) 180 H 189 H (75-99) mg/dL Hemoglobin A1c 6.5 H (4.0-6.0) % Calcium (8.7-10.3) mg/dL Total Bilirubin (0.30-1.20) mg/dL Total Protein (6.2-8.2) g/dL Albumin (3.8-4.9) g/dL Albumin/Globulin Ratio (1.60-3.17) g/dL 06/24/21 06/24/21 06/24/21 Range/Units 04:55 04:55 07:02 WBC 13.3 H (3.8-10.6) k/uL RBC 3.34 L (3.80-5.40) m/uL Hgb 11.0 L (11.4-16.0) gm/dL MCV 103.8 H (80.0-100.0) fL Neutrophils # 10.0 H (1.3-7.7) k/uL Chloride 112 H (96-109) mmol/L Carbon Dioxide 15.9 L (21.6-31.8) mmol/L Creatinine 1.8 H (0.6-1.5) mg/dL Est GFR (CKD-EPI)AfAm 30.1 L (60.0-200.0) Est GFR (CKD-EPI)NonAf 26.0 L (60.0-200.0) Glucose 113 H (70-110) mg/dL POC Glucose (mg/dL) 106 H (75-99) mg/dL Hemoglobin A1c (4.0-6.0) % Calcium 8.3 L (8.7-10.3) mg/dL Total Bilirubin <0.20 L (0.30-1.20) mg/dL Total Protein 5.4 L (6.2-8.2) g/dL Albumin 2.5 L (3.8-4.9) g/dL Albumin/Globulin Ratio 0.86 L (1.60-3.17) g/dL 06/24/21 Range/Units 12:20 WBC (3.8-10.6) k/uL RBC (3.80-5.40) m/uL Hgb (11.4-16.0) gm/dL MCV (80.0-100.0) fL Neutrophils # (1.3-7.7) k/uL Chloride (96-109) mmol/L Carbon Dioxide (21.6-31.8) mmol/L Creatinine (0.6-1.5) mg/dL Est GFR (CKD-EPI)AfAm (60.0-200.0) Est GFR (CKD-EPI)NonAf (60.0-200.0) Glucose (70-110) mg/dL POC Glucose (mg/dL) 128 H (75-99) mg/dL Hemoglobin A1c (4.0-6.0) % Calcium (8.7-10.3) mg/dL Total Bilirubin (0.30-1.20) mg/dL Total Protein (6.2-8.2) g/dL Albumin (3.8-4.9) g/dL Albumin/Globulin Ratio (1.60-3.17) g/dL Assessment and Plan (1) Pneumatosis intestinalis Current Visit: Yes Status: Acute Code(s): K63.89 - OTHER SPECIFIED DISEASES OF INTESTINE SNOMED Code(s): 31181615
[2021-06-24 11:06] LABS: ALT 10 U/L (8-44); AST 16 U/L (13-35); African American GFR (CKD) 30.1 (60.0-200.0); Albumin 2.5 g/dL (3.8-4.9); Albumin/Globulin Ratio 0.86 (1.60-3.17); Alkaline Phosphatase 120 U/L (41-126); Blood Urea Nitrogen 24.2 mg/dL (9.0-27.0); Calcium 8.3 mg/dL (8.7-10.3); Carbon Dioxide 15.9 mmol/L (21.6-31.8); Chloride 112 mmol/L (96-109); Globulin 2.9 g/dL (1.6-3.3); Glucose 113 mg/dL (70-110); Potassium 4.4 mmol/L (3.5-5.5); Sodium 140 mmol/L (135-145); Total Bilirubin <0.20 mg/dL (0.30-1.20); Total Protein 5.4 g/dL (6.2-8.2)
--- NOTE | 2021-06-24 11:46 | P.PN ---
Subjective Progress Note Date: 06/24/21 80-year-old female who presented to the emergency department on 06/20/21, complaining of abdominal pain. She apparently is been having abdominal pain on and off for 1 week. Her abdomen felt distended. She also had episodes of both nausea and vomiting. She could not eat. She also had constipation, and some occasional soft bowel movements. There are no fever or chills. A CT of the abdomen and pelvis showed evidence of markedly dilated colonic loops to the level of the sigmoid colon. In addition, there was a 3.5 cm lesion in the area of the right ovary, potentially consistent with ovarian carcinoma. The patient underwent a exploratory laparotomy, with colectomy, ileostomy, and mucous fistula. The surgery was done by Dr. Bailey. Today, he is postop day #3. She is on 2 L nasal cannula, and saline at 125 mL an hour. Chest x-ray was consistent with mild cardiomegaly and mild pulmonary vascular congestion. She does have some gram-negative bacilli in her urine and she is currently on Zosyn. the Patient Remains on the Same Oxygen Level Which Is 2 L Per Minute Nasal Cannula. Chest X-Ray Shows No Acute Abnormalities. No Evidence of a Pneumoperitoneum. Lungs Are Adequately Expanded. In Terms of the Ileostomy, and It Is Functional and the Patient Has Some Positive Output within the Bag. The Patient Is Taking Clear Liquid Diet. She Is Using Incentive Spirometer, Pulling Approximately 500 ML on Her Eye As. She Is Awake and Alert. She Is Communicating. No Confusion. The Patient Remains on IV Zosyn. Urine Culture Was Positive for E. coli. Noted Overnight, the Patient Had a Bout of Atrial Fibrillation and the Patient Receives Her Home Dose of Metoprolol and Currently She Is at a Dose of 50 Mg by Mouth Twice a Day. She Did Ultimately Converted Back into Normal Sinus Rhythm. She Is on No Anticoagulants for Now Other Than Subcu Heparin. At Home, and on Outpatient Basis, the Patient Was Not Receiving Any Form of Anticoagulants. On today's evaluation of 06/24/2021, Natalia is being seen for a follow-up. Patient is postop day #4 following her surgery. She was in intensive care unit yesterday and she got transferred out. She remains on oxygen and 2 L per minute nasal cannula. She was taken off the 2 L and she is currently on room air oxygen at 96% pulse ox. She is afebrile. She is hemodynamically stable. She remains on IV Zosyn. Urine culture was positive for E. coli and the patient is covered with antibiotics in that regard. Ileostomy site is functional. The patient has a mucous fistula. Surgical wound site is dry clean and intact. She is using incentive spirometer. White cell count was at 13.3 with a hemoglobin of 11, his serum bicarb is at 16 with a slightly lower compared to yesterday. Sodium is at 140. Potassium is at 4.4. The LFTs are normal, calcium is at 8.3, the albumin is at 2.5, creatinine is going down and is currently down to 1.8 with a BUN of 24. IV fluids are in the form of normal saline at the rate of 125 mL and this was reduced down to 75 mL an hour. I Objective - Vital Signs Vital signs: Vital Signs Temp 97.5 F L 06/24/21 06:50 Pulse 90 06/24/21 06:50 Resp 18 06/24/21 06:50 BP 159/76 06/24/21 06:50 Pulse Ox 96 06/24/21 06:50 Intake & Output 06/23/21 06/24/21 06/24/21 18:59 06:59 18:59 Intake Total 450 Output Total 850 500 Balance -400 -500 Intake: IV 250 0.9 250 Oral 200 Output: Urine 250 500 Stool 600 Other: Voiding Method Indwelling Catheter Indwelling Catheter ABP, PAP, CO, CI - Last Documented Arterial Blood Pressure 158/54 - Exam No acute distress, oriented 3. Currently on RA. HEENT examination is grossly unremarkable. Neck supple. Full range of motion. No adenopathy thyromegaly or neck vein distention. Cardiovascular examination reveals regular rhythm rate. S1-S2 normal. No S3 or S4. No discernible murmur noted. . Heart sounds are distant. Lungs reveal mostly clear breath sounds. Scattered rhonchi. No wheezes or crackles. Abdomen soft without bowel sounds. 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 Extremities are intact. No cyanosis clubbing or edema. Skin is without rash or lesion. Neurologic examination is brief but nonfocal.lean - Labs CBC & Chem 7: 06/24/21 04:55 06/24/21 04:55 Labs: Abnormal Lab Results - Last 24 Hours (Table) 06/23/21 06/23/21 06/23/21 Range/Units 13:00 16:25 20:41 WBC (3.8-10.6) k/uL RBC (3.80-5.40) m/uL Hgb (11.4-16.0) gm/dL MCV (80.0-100.0) fL Neutrophils # (1.3-7.7) k/uL Chloride (96-109) mmol/L Carbon Dioxide (21.6-31.8) mmol/L Creatinine (0.6-1.5) mg/dL Est GFR (CKD-EPI)AfAm (60.0-200.0) Est GFR (CKD-EPI)NonAf (60.0-200.0) Glucose (70-110) mg/dL POC Glucose (mg/dL) 196 H 180 H 189 H (75-99) mg/dL Calcium (8.7-10.3) mg/dL Total Bilirubin (0.30-1.20) mg/dL Total Protein (6.2-8.2) g/dL Albumin (3.8-4.9) g/dL Albumin/Globulin Ratio (1.60-3.17) g/dL 06/24/21 06/24/21 06/24/21 Range/Units 04:55 04:55 07:02 WBC 13.3 H (3.8-10.6) k/uL RBC 3.34 L (3.80-5.40) m/uL Hgb 11.0 L (11.4-16.0) gm/dL MCV 103.8 H (80.0-100.0) fL Neutrophils # 10.0 H (1.3-7.7) k/uL Chloride 112 H (96-109) mmol/L Carbon Dioxide 15.9 L (21.6-31.8) mmol/L Creatinine 1.8 H (0.6-1.5) mg/dL Est GFR (CKD-EPI)AfAm 30.1 L (60.0-200.0) Est GFR (CKD-EPI)NonAf 26.0 L (60.0-200.0) Glucose 113 H (70-110) mg/dL POC Glucose (mg/dL) 106 H (75-99) mg/dL Calcium 8.3 L (8.7-10.3) mg/dL Total Bilirubin <0.20 L (0.30-1.20) mg/dL Total Protein 5.4 L (6.2-8.2) g/dL Albumin 2.5 L (3.8-4.9) g/dL Albumin/Globulin Ratio 0.86 L (1.60-3.17) g/dL Assessment and Plan Plan: 1 Postop day #4, status post exploratory laparotomy, colectomy with colostomy, repair of umbilicus hernia and mucous fistula, secondary to colonic obstruction with pneumatosis and umbilicus hernia. 2 acute leukocytosis, improving 3 CKD with a component of an acute kidney injury, improving 4 Right ovarian lesion. 5 History of CHF. Last echo from 12/2018 showed EF less than 20% with mild mitral regurgitation. She believes she had a prior heart catheterization where she was told she did not have significant blockages. 6 History of diabetes mellitus. 7 History of hyperlipidemia. 8 History of hypertension. 9 recurrent UTIs 10 paroxysmal atrial fibrillation, Current Rhythm Is Back to Sinus and the Patient Is on No Anticoagulants on Outpatient Basis, She Is on Metoprolol 50 Mg by Mouth Twice a Day. 11 COPD 12 peripheral neuropathy 13 non-anion gap metabolic acidosis plan I'm going to switch this patient to a bicarb infusion at the rate of 75 mL an hour and corrective bicarb deficit Continue IV Zosyn at the Same Current Dose and the Patient Is Showing E. coli in Her Urine Advance Diet As Tolerated, Consider Soft Continue Using Incentive Spirometer and Increased Mobility and Increase It up on a Chair Continue Metoprolol for Now Patient was started on anticoagulation with Eliquis by cardiology Renal function continues to improve in the creatinine is down to 1.8 She is transferred out of the intensive care unit and she is currently on a medical surgical floor and she is recuperating.
[2021-06-24 12:21] LABS: Glucose,Whole Blood 128 mg/dL (75-99)
--- NOTE | 2021-06-24 12:24 | P.PN ---
Subjective Is a pleasant 78-year-old female with history of hypertension, paroxysmal atrial fibrillation, chronic kidney disease, cardiomyopathy, hyperlipidemia, diabetes mellitus type 2, COPD, recurrent UTIs and bowel obstruction who presents secondary abdominal pain and was found to have bowel obstruction. Patient underwent abdominal surgery 06/20/21 status post exploratory laparotomy, colectomy with colostomy. Cardiology was consulted for atrial fibrillation with rapid ventricular response. Patient was then noted to have an episode of atrial fibrillation with heart rates in the 120s and 130s on 06/22. Echocardiogram was repeated which showed an EF 5560 percent, RV is severely enlarged, moderate LVH, mild mitral regurgitation, moderate tricuspid regurgitation, severe pulmonary hypertension with RVSP of 87 mmHg Patient seen and examined at bedside, she is alert and oriented x 3. She states her abdominal pain is improved. She denies any chest pain, shortness of breath, palpitations, lightheadedness or dizziness. She is currently maintained on metoprolol titrate 50 mg twice a day. Telemetry reviewed patient continues sinus mechanism heart rate in 80s. Labs, WBC 13, hemoglobin 11, platelets 208, sodium 140, potassium 4.4, BUN 24, serum creatinine 1.8 PHYSICAL EXAMINATION Vital signs reviewed. CONSTITUTIONAL: No apparent distress. HEENT: Neck Supple. No JVD CHEST EXAMINATION: Lungs are clear to auscultation. No chest wall tenderness is noted on palpation or with deep breathing. HEART EXAMINATION: Regular rate and rhythm. S1, S2 heard. No murmurs, gallops or rub. ABDOMEN: Soft, nontender. Positive bowel sounds. EXTREMITIES: 2+ peripheral pulses, no lower extremity edema and no calf tenderness. NEUROLOGIC EXAMINATION: Patient is awake, alert and oriented x3. ASSESSMENT Paroxysmal atrial fibrillation [id number] score 6, maintaining sinus mechanism. Chronic systolic heart failure History of Cardiomyopathy,most likely non-ischemic, recovered EF Hypertension, recently hypotensive secondary to sepsis Bowel obstruction, status post exploratory laparotomy, colectomy with colostomy, repair of umbilicus hernia and mucous fistula Septic shock, improving Acute on chronic kidney disease, improving PLAN Per Surgery ok to start anticoagulation We will start Eliquis 2.5mg BID Continue metoprolol tartrate 50mg BID Losartan is on hold due to PETE From a cardiology perspective, patient is stable. Recommend follow up with Dr. Alicea outpatient in 1 week. Objective - Vital Signs Vital signs: Vital Signs Temp 97.5 F L 06/24/21 06:50 Pulse 90 06/24/21 06:50 Resp 18 06/24/21 06:50 BP 159/76 06/24/21 06:50 Pulse Ox 96 06/24/21 06:50 Intake & Output 06/23/21 06/24/21 06/24/21 18:59 06:59 18:59 Intake Total 450 Output Total 850 500 Balance -400 -500 Intake: IV 250 0.9 250 Oral 200 Output: Urine 250 500 Stool 600 Other: Voiding Method Indwelling Catheter Indwelling Catheter ABP, PAP, CO, CI - Last Documented Arterial Blood Pressure 158/54 - Labs CBC & Chem 7: 06/24/21 04:55 06/24/21 04:55 Labs: Abnormal Lab Results - Last 24 Hours (Table) 06/23/21 06/23/21 06/23/21 Range/Units 13:00 16:25 20:41 WBC (3.8-10.6) k/uL RBC (3.80-5.40) m/uL Hgb (11.4-16.0) gm/dL MCV (80.0-100.0) fL Neutrophils # (1.3-7.7) k/uL Chloride (96-109) mmol/L Carbon Dioxide (21.6-31.8) mmol/L Creatinine (0.6-1.5) mg/dL Est GFR (CKD-EPI)AfAm (60.0-200.0) Est GFR (CKD-EPI)NonAf (60.0-200.0) Glucose (70-110) mg/dL POC Glucose (mg/dL) 196 H 180 H 189 H (75-99) mg/dL Calcium (8.7-10.3) mg/dL Total Bilirubin (0.30-1.20) mg/dL Total Protein (6.2-8.2) g/dL Albumin (3.8-4.9) g/dL Albumin/Globulin Ratio (1.60-3.17) g/dL 06/24/21 06/24/21 06/24/21 Range/Units 04:55 04:55 07:02 WBC 13.3 H (3.8-10.6) k/uL RBC 3.34 L (3.80-5.40) m/uL Hgb 11.0 L (11.4-16.0) gm/dL MCV 103.8 H (80.0-100.0) fL Neutrophils # 10.0 H (1.3-7.7) k/uL Chloride 112 H (96-109) mmol/L Carbon Dioxide 15.9 L (21.6-31.8) mmol/L Creatinine 1.8 H (0.6-1.5) mg/dL Est GFR (CKD-EPI)AfAm 30.1 L (60.0-200.0) Est GFR (CKD-EPI)NonAf 26.0 L (60.0-200.0) Glucose 113 H (70-110) mg/dL POC Glucose (mg/dL) 106 H (75-99) mg/dL Calcium 8.3 L (8.7-10.3) mg/dL Total Bilirubin <0.20 L (0.30-1.20) mg/dL Total Protein 5.4 L (6.2-8.2) g/dL Albumin 2.5 L (3.8-4.9) g/dL Albumin/Globulin Ratio 0.86 L (1.60-3.17) g/dL
[2021-06-24] MEDS: DEXTROSE 5% IN WATER 1,000 ML with SODIUM BICARB (1 MEQ/ML) 150 ML IV SCH (14:09)
--- NOTE | 2021-06-24 15:04 | P.PN ---
Subjective Progress Note Date: 06/24/21 HISTORY OF PRESENT ILLNESS 80-year-old female one of Dr. Sanchez's patient with past medical history of CAD, hypertension, hyperlipidemia, recurrent urinary tract infection who presented to [facility] today after an episode of increase abdominal pain and distention specially in the right side with worsening nausea and vomiting with significant decrease in appetite has not had much to eat or drink. The time was seen to have significant leukocytosis with white blood cell 25,000 mild elevated lactic acid. CAT scan of the abdomen showed significant colonic distention with evidence of right-sided ischemic change with pneumatosis intestinalis. Patient started looking more toxic at this point. Patient was seen Dr. gipson and was taking from the emergency department to the OR for partial resection in the having exploratory laparotomy with right sided colectomy and end ileostomy with mucous fistula repair. Umbilical hernia. She was started on Zosyn, pain management, IV resuscitation along with DVT prophylaxis and admitted to the ICU after surgery. 06/21: Patient was hemodynamically not stable after her surgery was transferred to the ICU, patient surgery was consistent with dilated loop of bowel in the sigmoid with 3.5 cm lesion in the right ovary potential ovarian cancer her laparotomy with colectomy ileostomy and mucous fistula was done and patient is doing much better today except her potassium was quite bit high at 6.0 patient is making enough urine at this point with creatinine at 2.63, will continue hydration nephrology be consult at and treatment for hyperkalemia will be done. 06/22: Patient states 2 post exploratory surgery with colectomy, ileostomy in the right side fistula in the left side with repair of umbilical hernia. Patient is doing well her intake through the ostomy has been doing better, patient has not had much oral intake this point and still on Zosyn antibiotic-neely her microbiology came back as a gram-negative bacillary in the urine. Her creatinine is tiny bit down compared to yesterday patient is making good urine output this point. 06/23: Patient is seen today in the ICU, she has been downgraded and is waiting for [facility] bed. Patient is having good output from the ostomy, no significant rectal output. Patient is currently on clear liquid diet to be advanced to full liquid diet at lunch today. Beckett catheter has been removed and patient is waiting to void. Patient was seen yesterday by cardiology for A. fib with mild RVR with history of proximal A. fib. Patient was resumed on her metoprolol and patient most likely will start anticoagulation once cleared by general surgery. 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 Echocardiogram reveals EF of 55-60%, moderate mitral annular calcification, mild mitral regurgitation, moderate tricuspid regurgitation, severe pulmonary hypertension. Chest x-ray reveals cardiomegaly with patchy bibasilar acute infiltrate and/or atelectasis redemonstrated. Small to tiny left greater than right pleural effusions now present. Patient is reaching 750-1000 on incentive spirometry. Patient is afebrile, heart rate 66, blood pressure 148/84, pulse ox 98% on 2 L nasal cannula. WBC 12.1, hemoglobin 10.3, platelet count 245. Sodium 144, potassium 4.8, chloride 119, CO2 18, BUN 33 creatinine 1.96. Blood sugar 101. Calcium 7.7. Alkaline phosphatase 129. 06/24: Patient is seen today on the [facility] floor. She states that she got up in a chair for the first time yesterday but has not worked with physical therapy yet. She did have a midline placed yesterday. We are planning to continue IV fluids for today. Patient has been afebrile, heart rate 70, blood pressure 156/72, pulse ox 93% on room air. Repeat blood work reveals WBC 13.3, hemoglobin 11, platelet count 208. Creatinine 1.8. Blood sugars are running between 120-189. Urine culture is positive for E. coli multidrug resistant. Patient is currently on full liquid diet and tolerating. Patient has been start ed on eliquis by cardiology. REVIEW OF SYSTEMS Constitutional: No fever, no chills, no night sweats. No weight change. No weakness, fatigue or lethargy. No daytime sleepiness. Slightly confused does not look in any respiratory distress. EENT: No headache. No blurred vision or double vision, no loss of vision. No loss of Hearing, no ringing in the ears, no dizziness. No nasal drainage or congestion. No epistaxis. No sore throat. Lungs: No shortness of breath, cough, no sputum production. No wheezing. Cardiovascular: Mild PND and orthopnea and no chest pain slight edema of the lower extremity mild palpitation with exertion. Abdominal: Significant distention with mild abdominal discomfort more than pain with significant nausea vomiting positive an episode of large bowel movement at the time with no blood in it. Significant decrease in appetite. Genitourinary: No dysuria, increased frequency, urgency. No urinary retention. Decrease urine output. Musculoskeletal: No myalgias. No muscle weakness, no gait dysfunction, no frequent falls. No back pain. No neck pain. Integumentary: No wounds, no lesions. No rash or pruritus. No unusual bruisi ng. Neurologic: No motor deficit visualized weakness had slight change mental status. Psychiatric: No depression. No anxiety. No mood swings. Endocrine: No abnormal blood sugars. No weight change. PHYSICAL EXAMINATION Gen: This is an a 80-year-old female. Patient is resting in bed in the [facility] floor and appears to be comfortable. HEENT: Head is atraumatic, normocephalic. Pupils equal, round. Sclerae is anicteric. NECK: Supple. No JVD. No lymphadenopathy. No thyromegaly. LUNGS: Decreased breath some bilateral rhonchi and mild expiratory wheezes. HEART: Irregular rate and rhythm. Mild tachycardia. ABDOMEN: Surgical site excluded patient had to ostomy bag 1 his ileostomy another one is fistula drain bag. Ileostomy stoma is beefy red. No abdominal tenderness. EXTREMITIES: No pedal edema. No calf tenderness. NEUROLOGICAL: Patient is awake, alert with slight confusion. Cranial nerves 2 through 12 are grossly intact. ASSESSMENT AND PLAN 1. Abdominal pain: Most likely from ischemic colitis with slight early perforation, patient went for surgery with colectomy, ileostomy and mucous fistula repair, and umbilical hernia repair as well. Continue full liquid diet, continue Zosyn 3.375 g IV piggyback every 12 hours. 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 Incision looks fine. 3 bowel obstruction: Most likely caused by pneumatosis intestinalis along with ischemic colitis. 4. Paroxysmal atrial fibrillation. Cardiology consult appreciated. Continue Lopressor 50 mg twice daily, eliquis 2.5 mg twice daily. 5. Chronic diastolic heart failure. Continue metipranolol. 6. Acute kidney injury with chronic kidney disease stage III or 4. Avoid nephrotoxic agents, continue to monitor. Continue PhosLo 667 mg 3 times daily. Discontinue Motrin. Tylenol as needed for pain. 7. Acute blood loss anemia with hemoglobin dropped 3 g, expected with surgery. Continue to monitor, transfuse if hemoglobin less than 7. 8. Diabetes mellitus type 2. Patient will be started on NovoLog scale before meals and at bedtime. Patient is on Humalog 7525 12 units with breakfast and 15 units with supper currently on hold. 9. Peripheral diabetic neuropathy 7 chronic neuropathy: Has been on Lyrica 75 mg twice a day. 10. Hyperlipidemia. Patient will be resumed on pravastatin 40 mg daily. 11. Chronic edema. Hold Lasix. 12. COPD without exacerbation. DuoNeb treatments as needed. 13. DVT prophylaxis. Patient is on heparin subcu. CODE STATUS: Full code. DISCHARGE PLAN [facility]acute re[facility] at [facility], PT and OT consults Impression and plan of care have been directed as dictated by the signing physician. Thais Scott nurse practitioner acting as scribe for signing physician. Objective - Vital Signs Vital signs: Vital Signs Temp 97.5 F L 06/24/21 06:50 Pulse 90 06/24/21 06:50 Resp 18 06/24/21 06:50 BP 159/76 06/24/21 06:50 Pulse Ox 96 06/24/21 06:50 Intake & Output 06/23/21 06/24/21 06/24/21 18:59 06:59 18:59 Intake Total 450 Output Total 850 500 Balance -400 -500 Intake: IV 250 0.9 250 Oral 200 Output: Urine 250 500 Stool 600 Other: Voiding Method Indwelling Catheter Indwelling Catheter ABP, PAP, CO, CI - Last Documented Arterial Blood Pressure 158/54 - Labs CBC & Chem 7: 06/24/21 04:55 06/24/21 04:55 Labs: Abnormal Lab Results - Last 24 Hours (Table) 06/23/21 06/23/21 06/23/21 Range/Units 13:00 16:25 20:41 WBC (3.8-10.6) k/uL RBC (3.80-5.40) m/uL Hgb (11.4-16.0) gm/dL MCV (80.0-100.0) fL Neutrophils # (1.3-7.7) k/uL POC Glucose (mg/dL) 196 H 180 H 189 H (75-99) mg/dL 06/24/21 06/24/21 Range/Units 04:55 07:02 WBC 13.3 H (3.8-10.6) k/uL RBC 3.34 L (3.80-5.40) m/uL Hgb 11.0 L (11.4-16.0) gm/dL MCV 103.8 H (80.0-100.0) fL Neutrophils # 10.0 H (1.3-7.7) k/uL POC Glucose (mg/dL) 106 H (75-99) mg/dL
[2021-06-24] MEDS: ONDANSETRON 4 MG/2 ML VIAL IVP PRN (15:23)
[2021-06-24 18:02] LABS: Glucose,Whole Blood 198 mg/dL (75-99)
[2021-06-24 19:59] LABS: Glucose,Whole Blood 204 mg/dL (75-99)
[2021-06-24] MEDS: APIXABAN 2.5 MG TABLET PO SCH (20:08)
[2021-06-24] MEDS: traMADol 50 MG TAB PO PRN (21:49)
[2021-06-25] MEDS: DEXTROSE 5% IN WATER 1,000 ML with SODIUM BICARB (1 MEQ/ML) 150 ML IV SCH (04:32)
[2021-06-25] MEDS: PIPERACILLIN-TAZOBACTAM 3.375 GM in SODIUM CHLORIDE 0.9% 100 ML IVPB SCH ×2 (04:32→18:14)
[2021-06-25] MEDS: ACETAMINOPHEN IV (For NPO) 1,000 MG in EMPTY BAG 1 BAG IVPB SCH ×4 (05:46→23:16)
[2021-06-25 06:21] LABS: Basophils % (A) 0 %; Eosinophils # (A) 0.4 k/uL (0-0.7); Eosinophils % (A) 4 %; HCT 35.3 % (34.0-46.0); HGB 10.9 gm/dL (11.4-16.0); Hypochromasia Slight; Lymphocytes # (A) 2.5 k/uL (1.0-4.8); Lymphocytes % (A) 21 %; MCV 103.3 fL (80.0-100.0); Macrocytosis Slight; Monocytes # (A) 0.7 k/uL (0-1.0); Monocytes % (A) 6 %; Neutrophils % (A) 68 %; Platelet Count 266 k/uL (150-450); RBC 3.41 m/uL (3.80-5.40); RDW 12.7 % (11.5-15.5); WBC 11.8 k/uL (3.8-10.6)
[2021-06-25 07:41] LABS: Glucose,Whole Blood 143 mg/dL (75-99)
[2021-06-25] MEDS: INSULIN ASPART (NovoLOG) 100 UNIT/ML VIAL SQ SCH ×4 (08:40→20:14)
[2021-06-25] MEDS: PANTOPRAZOLE 40 MG/10 ML VIAL IV SCH (08:42)
[2021-06-25] MEDS: FLUoxetine HCL 20 MG CAP PO SCH (08:44)
[2021-06-25] MEDS: PRAVASTATIN SODIUM 40 MG TAB PO SCH (08:44)
[2021-06-25] MEDS: CALCIUM ACETATE 667 MG TAB PO SCH ×3 (08:44→20:16)
[2021-06-25] MEDS: APIXABAN 2.5 MG TABLET PO SCH ×2 (08:45→20:16)
[2021-06-25] MEDS: METOPROLOL TARTRATE 50 MG TAB PO SCH ×2 (08:45→20:16)
[2021-06-25] MEDS: ONDANSETRON 4 MG/2 ML VIAL IVP PRN (08:46)
--- NOTE | 2021-06-25 11:10 | P.PN ---
<Erika Collado - Last Filed: 06/25/21 10:59> Subjective Progress Note Date: 06/25/21 CHIEF COMPLAINT: Colon obstruction HISTORY OF PRESENT ILLNESS: 80-year-old female who came into the hospital with complaints of right-sided abdominal pain. Pain had been increasing over the last 1 week or so with the episodes of nausea and vomiting. Patient she was found to have significant leukocytosis CAT scan showing significant colonic distention with evidence of right-sided ischemic changes and pneumatosis intestinalis. She underwent exploratory laparotomy with right colectomy, end ileostomy, mucous fistula, repair of umbilical hernia on 06/20/2021. Today she is seen and evaluated today with some complaints of nausea. No vomiting this morning however yesterday she did have some episodes of dry heaves and emesis. She is having continued output through the ileostomy which is a little more oft en versus liquidy. Mucous fistula with small amount of serosanguineous drainage. Reports pain well controlled with occasional discomfort with movement at surgical sites. She's been afebrile. WBC trending down today is 11.8 hemoglobin stable at 10.9. Today's CMP currently pending. Yesterday creatinine improved to 1.8, Electrolytes normal. PHYSICAL EXAM: VITAL SIGNS: Reviewed. GENERAL: Well-developed in no acute distress. HEENT: No sclera icterus. Extraocular movements grossly intact. Moist buccal mucosa. Head is atraumatic, normocephalic. ABDOMEN: Soft. Nondistended. Nontender. Soft brown stool from ostomy. Small amount of serosanguineous drainage from mucous fistula. NEUROLOGIC: Alert and oriented. Cranial nerves II through XII grossly intact. ASSESSMENT: 1. Pneumatosis intestinalis status post exploratory laparotomy with right colectomy, end ileostomy, mucous fistula and repair of umbilical hernia 2. History of atrial fibrillation 3. UTI on Zosyn PLAN: -Continue full liquid diet -Continue antiemetics -Encourage ambulation, physical therapy on consult -Encourage incentive spirometer -Discuss with cardiology they may begin anticoagulation if needed for atrial fibrillation -Plans for discharge to rehab later this week The impression and plan of care has been dictated as directed. Dr. Alexei Bailey I performed a history and examination of this patient, discussed the same with the dictator. I agree with the dictator's note ,documented as a scribe. Any additional findings or plans will be noted. Objective - Vital Signs Vital signs: Vital Signs Temp 97.5 F L 06/25/21 04:54 Pulse 81 06/25/21 06:46 Resp 18 06/25/21 06:46 BP 167/76 06/25/21 06:46 Pulse Ox 97 06/25/21 06:46 Intake & Output 06/24/21 06/25/21 06/25/21 18:59 06:59 18:59 Intake Total 662.5 1440 Output Total 650 400 Balance 12.5 1040 Intake: IV 100 300 ACETAMINOPHEN IV (For NPO 100 200 ) 1,000 mg In Empty Bag 1 bag @ 400 mls/hr IVPB Q6HR [facility] Rx#:[id number] Piperacillin-Tazobactam 3 100 .375 gm In Sodium Chloride 0.9% 100 ml @ 25 mls/hr IVPB Q12H [facility] Rx# :[id number] Intake, IV Titration 562.5 900 Amount Dextrose 5% in Water 1, 900 000 ml @ 75 mls/hr IV . [id number] [facility] with Sodium Bicarb (1 Meq/ml) 150 ml Rx#:[id number] Sodium Chloride 0.9% 1, 562.5 000 ml @ 75 mls/hr IV . [id number] [facility] Rx#:[id number] Oral 240 Output: Urine 400 Stool 650 Other: Voiding Method Incontinent Incontinent External Catheter External Catheter # Voids 2 ABP, PAP, CO, CI - Last Documented Arterial Blood Pressure 158/54 - Labs CBC & Chem 7: 06/25/21 05:17 06/24/21 04:55 Labs: Abnormal Lab Results - Last 24 Hours (Table) 06/24/21 06/24/21 06/24/21 Range/Units 04:55 04:55 12:20 WBC (3.8-10.6) k/uL RBC (3.80-5.40) m/uL Hgb (11.4-16.0) gm/dL MCV (80.0-100.0) fL Neutrophils # (1.3-7.7) k/uL Chloride 112 H (96-109) mmol/L Carbon Dioxide 15.9 L (21.6-31.8) mmol/L Creatinine 1.8 H (0.6-1.5) mg/dL Est GFR (CKD-EPI)AfAm 30.1 L (60.0-200.0) Est GFR (CKD-EPI)NonAf 26.0 L (60.0-200.0) Glucose 113 H (70-110) mg/dL POC Glucose (mg/dL) 128 H (75-99) mg/dL Hemoglobin A1c 6.5 H (4.0-6.0) % Calcium 8.3 L (8.7-10.3) mg/dL Total Bilirubin <0.20 L (0.30-1.20) mg/dL Total Protein 5.4 L (6.2-8.2) g/dL Albumin 2.5 L (3.8-4.9) g/dL Albumin/Globulin Ratio 0.86 L (1.60-3.17) g/dL 06/24/21 06/24/21 06/25/21 Range/Units 18:00 19:58 05:17 WBC 11.8 H (3.8-10.6) k/uL RBC 3.41 L (3.80-5.40) m/uL Hgb 10.9 L (11.4-16.0) gm/dL MCV 103.3 H (80.0-100.0) fL Neutrophils # 8.0 H (1.3-7.7) k/uL Chloride (96-109) mmol/L Carbon Dioxide (21.6-31.8) mmol/L Creatinine (0.6-1.5) mg/dL Est GFR (CKD-EPI)AfAm (60.0-200.0) Est GFR (CKD-EPI)NonAf (60.0-200.0) Glucose (70-110) mg/dL POC Glucose (mg/dL) 198 H 204 H (75-99) mg/dL Hemoglobin A1c (4.0-6.0) % Calcium (8.7-10.3) mg/dL Total Bilirubin (0.30-1.20) mg/dL Total Protein (6.2-8.2) g/dL Albumin (3.8-4.9) g/dL Albumin/Globulin Ratio (1.60-3.17) g/dL 06/25/21 Range/Units 07:38 WBC (3.8-10.6) k/uL RBC (3.80-5.40) m/uL Hgb (11.4-16.0) gm/dL MCV (80.0-100.0) fL Neutrophils # (1.3-7.7) k/uL Chloride (96-109) mmol/L Carbon Dioxide (21.6-31.8) mmol/L Creatinine (0.6-1.5) mg/dL Est GFR (CKD-EPI)AfAm (60.0-200.0) Est GFR (CKD-EPI)NonAf (60.0-200.0) Glucose (70-110) mg/dL POC Glucose (mg/dL) 143 H (75-99) mg/dL Hemoglobin A1c (4.0-6.0) % Calcium (8.7-10.3) mg/dL Total Bilirubin (0.30-1.20) mg/dL Total Protein (6.2-8.2) g/dL Albumin (3.8-4.9) g/dL Albumin/Globulin Ratio (1.60-3.17) g/dL <Arash Bailey - Last Filed: 06/25/21 12:10> Subjective As above. Patient was having some abdominal cramps. No significant vomiting issues. Continue full liquids. Increase activity. Plan rehab 24-48 hours. Objective - Vital Signs Vital signs: Vital Signs Temp 97.5 F L 06/25/21 04:54 Pulse 81 06/25/21 06:46 Resp 18 06/25/21 06:46 BP 167/76 06/25/21 06:46 Pulse Ox 97 06/25/21 06:46 Intake & Output 06/24/21 06/25/21 06/25/21 18:59 06:59 18:59 Intake Total 662.5 1440 Output Total 650 400 Balance 12.5 1040 Intake: IV 100 300 ACETAMINOPHEN IV (For NPO 100 200 ) 1,000 mg In Empty Bag 1 bag @ 400 mls/hr IVPB Q6HR [facility] Rx#:[id number] Piperacillin-Tazobactam 3 100 .375 gm In Sodium Chloride 0.9% 100 ml @ 25 mls/hr IVPB Q12H [facility] Rx# :[id number] Intake, IV Titration 562.5 900 Amount Dextrose 5% in Water 1, 900 000 ml @ 75 mls/hr IV . [id number] [facility] with Sodium Bicarb (1 Meq/ml) 150 ml Rx#:[id number] Sodium Chloride 0.9% 1, 562.5 000 ml @ 75 mls/hr IV . [id number] [facility] Rx#:[id number] Oral 240 Output: Urine 400 Stool 650 Other: Voiding Method Incontinent Incontinent Incontinent External Catheter External Catheter External Catheter # Voids 2 ABP, PAP, CO, CI - Last Documented Arterial Blood Pressure 158/54 - Labs CBC & Chem 7: 06/25/21 05:17 06/24/21 04:55 Labs: Abnormal Lab Results - Last 24 Hours (Table) 06/24/21 06/24/21 06/24/21 Range/Units 04:55 12:20 18:00 WBC (3.8-10.6) k/uL RBC (3.80-5.40) m/uL Hgb (11.4-16.0) gm/dL MCV (80.0-100.0) fL Neutrophils # (1.3-7.7) k/uL POC Glucose (mg/dL) 128 H 198 H (75-99) mg/dL Hemoglobin A1c 6.5 H (4.0-6.0) % 06/24/21 06/25/21 06/25/21 Range/Units 19:58 05:17 07:38 WBC 11.8 H (3.8-10.6) k/uL RBC 3.41 L (3.80-5.40) m/uL Hgb 10.9 L (11.4-16.0) gm/dL MCV 103.3 H (80.0-100.0) fL Neutrophils # 8.0 H (1.3-7.7) k/uL POC Glucose (mg/dL) 204 H 143 H (75-99) mg/dL Hemoglobin A1c (4.0-6.0) % Assessment and Plan (1) Pneumatosis intestinalis Current Visit: Yes Status: Acute Code(s): K63.89 - OTHER SPECIFIED DISEASES OF INTESTINE SNOMED Code(s): 51554070
[2021-06-25] MEDS: SENNOSIDES-DOCUSATE SODIUM 1 EACH TAB PO SCH (11:51)
[2021-06-25] MEDS: amLODIPine 5 MG TAB PO SCH (11:51)
[2021-06-25] MEDS: traMADol 50 MG TAB PO PRN (11:51)
--- NOTE | 2021-06-25 12:15 | P.PN ---
Subjective Progress Note Date: 06/25/21 HISTORY OF PRESENT ILLNESS 80-year-old female one of Dr. Sanchez's patient with past medical history of CAD, hypertension, hyperlipidemia, recurrent urinary tract infection who presented to [facility] today after an episode of increase abdominal pain and distention specially in the right side with worsening nausea and vomiting with significant decrease in appetite has not had much to eat or drink. The time was seen to have significant leukocytosis with white blood cell 25,000 mild elevated lactic acid. CAT scan of the abdomen showed significant colonic distention with evidence of right-sided ischemic change with pneumatosis intestinalis. Patient started looking more toxic at this point. Patient was seen Dr. gipson and was taking from the emergency department to the OR for partial resection in the having exploratory laparotomy with right sided colectomy and end ileostomy with mucous fistula repair. Umbilical hernia. She was started on Zosyn, pain management, IV resuscitation along with DVT prophylaxis and admitted to the ICU after surgery. 06/21: Patient was hemodynamically not stable after her surgery was transferred to the ICU, patient surgery was consistent with dilated loop of bowel in the sigmoid with 3.5 cm lesion in the right ovary potential ovarian cancer her laparotomy with colectomy ileostomy and mucous fistula was done and patient is doing much better today except her potassium was quite bit high at 6.0 patient is making enough urine at this point with creatinine at 2.63, will continue hydration nephrology be consult at and treatment for hyperkalemia will be done. 06/22: Patient states 2 post exploratory surgery with colectomy, ileostomy in the right side fistula in the left side with repair of umbilical hernia. Patient is doing well her intake through the ostomy has been doing better, patient has not had much oral intake this point and still on Zosyn antibiotic-neely her microbiology came back as a gram-negative bacillary in the urine. Her creatinine is tiny bit down compared to yesterday patient is making good urine output this point. 06/23: Patient is seen today in the ICU, she has been downgraded and is waiting for [facility] bed. Patient is having good output from the ostomy, no significant rectal output. Patient is currently on clear liquid diet to be advanced to full liquid diet at lunch today. Beckett catheter has been removed and patient is waiting to void. Patient was seen yesterday by cardiology for A. fib with mild RVR with history of proximal A. fib. Patient was resumed on her metoprolol and patient most likely will start anticoagulation once cleared by general surgery. classroom monitor sinus rhythm. Echocardiogram reveals EF of 55-60%, moderate mitral annular calcification, mild mitral regurgitation, moderate tricuspid regurgitation, severe pulmonary hypertension. Chest x-ray reveals cardiomegaly with patchy bibasilar acute infiltrate and/or atelectasis redemonstrated. Small to tiny left greater than right pleural effusions now present. Patient is reaching 750-1000 on incentive spirometry. Patient is afebrile, heart rate 66, blood pressure 148/84, pulse ox 98% on 2 L nasal cannula. WBC 12.1, hemoglobin 10.3, platelet count 245. Sodium 144, potassium 4.8, chloride 119, CO2 18, BUN 33 creatinine 1.96. Blood sugar 101. Calcium 7.7. Alkaline phosphatase 129. 06/24: Patient is seen today on the [facility] floor. She states that she got up in a chair for the first time yesterday but has not worked with physical therapy yet. She did have a midline placed yesterday. We are planning to continue IV fluids for today. Patient has been afebrile, heart rate 70, blood pressure 156/72, pulse ox 93% on room air. Repeat blood work reveals WBC 13.3, hemoglobin 11, platelet count 208. Creatinine 1.8. Blood sugars are running between 120-189. Urine culture is positive for E. coli multidrug resistant. Patient is currently on full liquid diet and tolerating. Patient has been start ed on eliquis by cardiology. 06/25: Blood pressure has been running high and patient will be started on Norvasc 5 mg daily and IV fluids discontinued. In her ostomy bag, stool is quite hard and scheduled Senokot added. She is complaining of some nausea for which Reglan will be added. Patient has been afebrile, heart rate 81, blood pressure 167/76, pulse ox 97% on room air. Capillary blood glucose running between 143 and 204. WBC 11.8, hemoglobin 10.9 and platelet count 266. classroom monitor is sinus rhythm and telemetry will be discontinued. Anticipate possible discharge on . Discharge plan is to rehab and [id number] has been completed. REVIEW OF SYSTEMS Constitutional: No fever, no chills, no night sweats. No weight change. No weakness, fatigue or lethargy. No daytime sleepiness. Slightly confused does not look in any respiratory distress. EENT: No headache. No blurred vision or double vision, no loss of vision. No loss of Hearing, no ringing in the ears, no dizziness. No nasal drainage or congestion. No epistaxis. No sore throat. Lungs: No shortness of breath, cough, no sputum production. No wheezing. Cardiovascular: Mild PND and orthopnea and no chest pain slight edema of the lower extremity mild palpitation with exertion. Abdominal: I'll do abdominal discomfort, hard stool from ostomy, decreased appetite and nausea. Genitourinary: No dysuria, increased frequency, urgency. No urinary retention. Decrease urine output. Musculoskeletal: No myalgias. No muscle weakness, no gait dysfunction, no frequent falls. No back pain. No neck pain. Integumentary: No wounds, no lesions. No rash or pruritus. No unusual bruising. Neurologic: No motor deficit visualized weakness had slight change mental status. Psychiatric: No depression. No anxiety. No mood swings. Endocrine: No abnormal blood sugars. No weight change. PHYSICAL EXAMINATION Gen: This is an a 80-year-old female. Patient is resting in bed in the [facility] floor and appears to be comfortable. HEENT: Head is atraumatic, normocephalic. Pupils equal, round. Sclerae is anicteric. NECK: Supple. No JVD. No lymphadenopathy. No thyromegaly. LUNGS: Decreased breath some bilateral rhonchi and mild expiratory wheezes. HEART: Irregular rate and rhythm. Mild tachycardia. ABDOMEN: Surgical site excluded patient had to ostomy bag 1 to ileostomy is small hard stool chunks, another ostomy bag is over fistula drain with serosanguineous mucus drainage. Ileostomy stoma is beefy red. No abdominal tenderness. Midline dressing intact. EXTREMITIES: No pedal edema. No calf tenderness. NEUROLOGICAL: Patient is awake, alert with slight confusion. Cranial nerves 2 through 12 are grossly intact. ASSESSMENT AND PLAN 1. Abdominal pain Most likely from ischemic colitis with slight early perfor ation, colon obstruction and pneumatosis right colon that is post exploratory laparotomy with right colectomy, end ileostomy, mucous fistula and repair of umbilical hernia on 06/[address] Bailey. Continue full liquid diet, continue Zosyn 3.375 g IV piggyback every 12 hours. 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 Incision looks fine. 3 bowel obstruction: Most likely caused by pneumatosis intestinalis along with ischemic colitis. 4. Paroxysmal atrial fibrillation. Cardiology consult appreciated. Continue Lopressor 50 mg twice daily, eliquis 2.5 mg twice daily. 5. Chronic diastolic heart failure. Continue metipranolol. 6. Acute kidney injury with chronic kidney disease stage III or 4. Avoid nephrotoxic agents, continue to monitor. Continue PhosLo 667 mg 3 times daily. Discontinue Motrin. Tylenol as needed for pain. 7. Acute blood loss anemia with hemoglobin dropped 3 g, expected with surgery. Continue to monitor, transfuse if hemoglobin less than 7. 8. Diabetes mellitus type 2. Patient will be started on NovoLog scale before meals and at bedtime. Patient is on Humalog 7525 12 units with breakfast and 15 units with supper currently on hold. 9. Peripheral diabetic neuropathy 7 chronic neuropathy: Has been on Lyrica 75 mg twice a day. 10. Hyperlipidemia. Patient will be resumed on pravastatin 40 mg daily. 11. Hypertension. Patient started on amlodipine 5 mg daily, continue Lopressor. 12. COPD without exacerbation. DuoNeb treatments as needed. 13. DVT prophylaxis. Patient is on eliquis CODE STATUS: Full code. DISCHARGE PLAN Subacute rehab at [facility] on Impression and plan of care have been directed as dictated by the signing physician. Thais Scott nurse practitioner acting as scribe for signing physician. Objective - Vital Signs Vital signs: Vital Signs Temp 97.5 F L 06/25/21 04:54 Pulse 81 06/25/21 06:46 Resp 18 06/25/21 06:46 BP 167/76 06/25/21 06:46 Pulse Ox 97 06/25/21 06:46 Intake & Output 06/24/21 06/25/21 06/25/21 18:59 06:59 18:59 Intake Total 662.5 1440 Output Total 650 400 Balance 12.5 1040 Intake: IV 100 300 ACETAMINOPHEN IV (For NPO 100 200 ) 1,000 mg In Empty Bag 1 bag @ 400 mls/hr IVPB Q6HR [facility] Rx#:[id number] Piperacillin-Tazobactam 3 100 .375 gm In Sodium Chloride 0.9% 100 ml @ 25 mls/hr IVPB Q12H [facility] Rx# :[id number] Intake, IV Titration 562.5 900 Amount Dextrose 5% in Water 1, 900 000 ml @ 75 mls/hr IV . [id number] [facility] with Sodium Bicarb (1 Meq/ml) 150 ml Rx#:[id number] Sodium Chloride 0.9% 1, 562.5 000 ml @ 75 mls/hr IV . [id number] [facility] Rx#:[id number] Oral 240 Output: Urine 400 Stool 650 Other: Voiding Method Incontinent Incontinent External Catheter External Catheter # Voids 2 ABP, PAP, CO, CI - Last Documented Arterial Blood Pressure 158/54 - Labs CBC & Chem 7: 06/25/21 05:17 06/24/21 04:55 Labs: Abnormal Lab Results - Last 24 Hours (Table) 06/24/21 06/24/21 06/24/21 Range/Units 04:55 04:55 12:20 WBC (3.8-10.6) k/uL RBC (3.80-5.40) m/uL Hgb (11.4-16.0) gm/dL MCV (80.0-100.0) fL Neutrophils # (1.3-7.7) k/uL Chloride 112 H (96-109) mmol/L Carbon Dioxide 15.9 L (21.6-31.8) mmol/L Creatinine 1.8 H (0.6-1.5) mg/dL Est GFR (CKD-EPI)AfAm 30.1 L (60.0-200.0) Est GFR (CKD-EPI)NonAf 26.0 L (60.0-200.0) Glucose 113 H (70-110) mg/dL POC Glucose (mg/dL) 128 H (75-99) mg/dL Hemoglobin A1c 6.5 H (4.0-6.0) % Calcium 8.3 L (8.7-10.3) mg/dL Total Bilirubin <0.20 L (0.30-1.20) mg/dL Total Protein 5.4 L (6.2-8.2) g/dL Albumin 2.5 L (3.8-4.9) g/dL Albumin/Globulin Ratio 0.86 L (1.60-3.17) g/dL 06/24/21 06/24/21 06/25/21 Range/Units 18:00 19:58 05:17 WBC 11.8 H (3.8-10.6) k/uL RBC 3.41 L (3.80-5.40) m/uL Hgb 10.9 L (11.4-16.0) gm/dL MCV 103.3 H (80.0-100.0) fL Neutrophils # 8.0 H (1.3-7.7) k/uL Chloride (96-109) mmol/L Carbon Dioxide (21.6-31.8) mmol/L Creatinine (0.6-1.5) mg/dL Est GFR (CKD-EPI)AfAm (60.0-200.0) Est GFR (CKD-EPI)NonAf (60.0-200.0) Glucose (70-110) mg/dL POC Glucose (mg/dL) 198 H 204 H (75-99) mg/dL Hemoglobin A1c (4.0-6.0) % Calcium (8.7-10.3) mg/dL Total Bilirubin (0.30-1.20) mg/dL Total Protein (6.2-8.2) g/dL Albumin (3.8-4.9) g/dL Albumin/Globulin Ratio (1.60-3.17) g/dL 06/25/21 Range/Units 07:38 WBC (3.8-10.6) k/uL RBC (3.80-5.40) m/uL Hgb (11.4-16.0) gm/dL MCV (80.0-100.0) fL Neutrophils # (1.3-7.7) k/uL Chloride (96-109) mmol/L Carbon Dioxide (21.6-31.8) mmol/L Creatinine (0.6-1.5) mg/dL Est GFR (CKD-EPI)AfAm (60.0-200.0) Est GFR (CKD-EPI)NonAf (60.0-200.0) Glucose (70-110) mg/dL POC Glucose (mg/dL) 143 H (75-99) mg/dL Hemoglobin A1c (4.0-6.0) % Calcium (8.7-10.3) mg/dL Total Bilirubin (0.30-1.20) mg/dL Total Protein (6.2-8.2) g/dL Albumin (3.8-4.9) g/dL Albumin/Globulin Ratio (1.60-3.17) g/dL
[2021-06-25 12:18] LABS: Glucose,Whole Blood 141 mg/dL (75-99)
[2021-06-25] MEDS: METOCLOPRAMIDE 5 MG TAB PO SCH ×2 (12:40→18:14)
[2021-06-25 17:49] LABS: Glucose,Whole Blood 151 mg/dL (75-99)
[2021-06-25 20:08] LABS: Glucose,Whole Blood 116 mg/dL (75-99)
[2021-06-25 20:30] LABS: ALT 12 U/L (4-34); AST 20 U/L (14-36); African American GFR (CKD) 40 (>60 ml/min/1.73 sqM); Albumin 2.3 g/dL (3.5-5.0); Albumin/Globulin Ratio 0.8; Alkaline Phosphatase 139 U/L (38-126); Anion Gap 6 mmol/L; Blood Urea Nitrogen 20 mg/dL (7-17); Calcium 7.9 mg/dL (8.4-10.2); Carbon Dioxide 23 mmol/L (22-30); Chloride 107 mmol/L (98-107); Globulin 2.9 g/dL; Glucose 149 mg/dL (74-99); Non-African American GFR(CKD) 35 (>60 ml/min/1.73 sqM); Potassium 4.1 mmol/L (3.5-5.1); Sodium 136 mmol/L (137-145); Total Bilirubin 0.2 mg/dL (0.2-1.3); Total Protein 5.2 g/dL (6.3-8.2)
[2021-06-26] MEDS: PIPERACILLIN-TAZOBACTAM 3.375 GM in SODIUM CHLORIDE 0.9% 100 ML IVPB SCH ×3 (05:18→21:08)
[2021-06-26] MEDS: ACETAMINOPHEN IV (For NPO) 1,000 MG in EMPTY BAG 1 BAG IVPB SCH ×4 (05:18→23:17)
[2021-06-26 06:39] LABS: HCT 36.7 % (34.0-46.0); HGB 11.3 gm/dL (11.4-16.0); Hypochromasia Slight; MCH 31.4 pg (25.0-35.0); MCHC 30.9 g/dL (31.0-37.0); MCV 101.7 fL (80.0-100.0); Mean Platelet Volume 8.4; Platelet Count 272 k/uL (150-450); RDW 12.6 % (11.5-15.5); WBC 11.2 k/uL (3.8-10.6)
[2021-06-26 08:09] LABS: Glucose,Whole Blood 102 mg/dL (75-99)
[2021-06-26] MEDS: INSULIN ASPART (NovoLOG) 100 UNIT/ML VIAL SQ SCH ×4 (08:22→21:09)
[2021-06-26] MEDS: APIXABAN 2.5 MG TABLET PO SCH (08:39)
[2021-06-26] MEDS: amLODIPine 5 MG TAB PO SCH (08:39)
--- NOTE | 2021-06-26 09:40 | CDI ---
Documentation Clarification Form Date: 06/23/2021 01:21:00 PM From: Yarelis Craven RN CCDS Admit Date: 06/20/2021 03:44:00 PM Patient Name: Natalia Yuen Visit Number: [id number] ATTENTION: The Clinical Documentation Specialists (CDI) and [facility] Coding Staff appreciate your assistance in clarifying documentation. Please respond to the clarification below the line at the bottom and electronically sign. The CDI & [facility] Coding staff will review the response and follow-up if needed. Please note: Queries are made part of the Legal Health Record. If you have any questions, please contact the author of this message via ITS. Dr. Kalia Aggarwal The patient presented with the following clinical indicators. Cardiology has documented that the patient had Sepsis. Additional clarification regarding the etiology/cause of the clinical indicators is requested. History/Risk Factors: Heart Failure, DM2, HTN, OA, MRSA Clinical Indicators: 06/22 Cardiology Consult: "Hypertension, recently hypotensive secondary to sepsis." 06/24 Cardiology Progress note: "Chronic systolic heart failure History of Cardiomyopathy, most likely non-ischemic, recovered EF Hypertension, recently hypotensive secondary to sepsis Bowel obstruction, status post exploratory laparotomy, colectomy with colostomy, repair of umbilicus hernia and mucous fistula. Septic shock, improving" 06/20 1306 Admission V/S: Temp 98.2, HR 66, RR 18, B/P 140/58, spo2 100% RA 06/20-06/26 WBC: 25.3/24.7/14/12.1/13.3 06/20-06/26 Neutrophils: 22.3/22.6/11.3/9.6/10 06/20 Lactic Acid 0.9/2.5 U/A: Turbid, +2 Protein, Trace blood, Large Leukocyte esterase, >182 WBC, few WBC clumps, moderate bacteria, moderate mucus, Culture + E.coli Blood cultures: not done 115 Procedure Note: "Colon obstruction with pneumatosis right colon, umbilical hernia. Exploratory laparotomy with right colectomy, end ileostomy, mucous fistula, repair umbilical hernia." End Organ Dysfunction: PETE on CKD POA Treatment: ID Consult: No ID Consult Ordered 06/20-06/26 Zosyn 3.375 GM IVPB Q 12 hrs. 06/20 2.5L 0.9% NS IVP Bolus 06/21 1L 0.9% NS IVF Bolus followed by 75 cc/hr. until 06/24 In your professional opinion, please clarify if these findings signify one of the following conditions: [ xx ] Sepsis POA [ ] Sepsis, Not POA [ ] Sepsis ruled out [ ] Septic Shock ruled in [ ] Septic shock ruled out [ ] Other, please specify [ ] Unable to determine SIRS Criteria: 2 or more of the following may indicate SIRS -Temperature < 96.8F (36C) or > 101.0F (38.3C) -Heart Rate > 90 bpm -Respiratory Rate > 20 breaths/min or PaCO2 < 32 mmHg -White Blood Cell Count > 12,000 or < 4,000 cells/mm3 or > 10% bands (Template Last Reviewed: September 2020) LEEANNED
[2021-06-26] MEDS: FLUoxetine HCL 20 MG CAP PO SCH (09:55)
[2021-06-26] MEDS: CALCIUM ACETATE 667 MG TAB PO SCH ×3 (09:55→21:03)
[2021-06-26] MEDS: METOPROLOL TARTRATE 50 MG TAB PO SCH ×2 (09:56→21:03)
[2021-06-26] MEDS: METOCLOPRAMIDE 5 MG TAB PO SCH ×3 (09:56→18:23)
[2021-06-26] MEDS: PANTOPRAZOLE 40 MG/10 ML VIAL IV SCH (09:56)
[2021-06-26] MEDS: SENNOSIDES-DOCUSATE SODIUM 1 EACH TAB PO SCH (10:00)
[2021-06-26] MEDS: PRAVASTATIN SODIUM 40 MG TAB PO SCH (10:00)
[2021-06-26 11:01] LABS: Albumin 2.3 g/dL (3.8-4.9); Albumin/Globulin Ratio 0.87 (1.60-3.17); Anion Gap 12.4 mmol/L (4.00-12.00); BUN/Creat Ratio 11.84 Ratio (12.00-20.00); Blood Urea Nitrogen 16.7 mg/dL (9.0-27.0); Carbon Dioxide 19.4 mmol/L (21.6-31.8); Globulin 2.7 g/dL (1.6-3.3); Non-African American GFR(CKD) 35.3 (60.0-200.0); Potassium 4.4 mmol/L (3.5-5.5); Total Bilirubin 0.3 mg/dL (0.30-1.20)
--- NOTE | 2021-06-26 11:37 | P.PN ---
<Erika Collado - Last Filed: 06/26/21 12:21> Subjective Progress Note Date: 06/26/21 CHIEF COMPLAINT: Colon obstruction HISTORY OF PRESENT ILLNESS: 80-year-old female who came into the hospital with complaints of right-sided abdominal pain. Pain had been increasing over the last 1 week or so with the episodes of nausea and vomiting. Patient she was found to have significant leukocytosis CAT scan showing significant colonic distention with evidence of right-sided ischemic changes and pneumatosis intestinalis. She underwent exploratory laparotomy with right colectomy, end ileostomy, mucous fistula, repair of umbilical hernia on 06/20/2021. Today she is seen and evaluated today with no complaints of nausea or vomiting. States she is feeling much better. She denies any abdominal pain other than some surgical tenderness. She's been afebrile. She did have an episode last night of passing some large clots as well as again this morning. Large dark clots but that appear to be mixed with stool. She is having continued output through the ileostomy which is green loose with some soft formed stool. Mucous fistula with small amount of serosanguineous drainage. Reports pain well controlled with occasional discomfort with movement at surgical sites. Hemoglobin stable at 11.3. WBC continues to trend down at 11.2. PHYSICAL EXAM: VITAL SIGNS: Reviewed. GENERAL: Well-developed in no acute distress. HEENT: No sclera icterus. Extraocular movements grossly intact. Moist buccal mucosa. Head is atraumatic, normocephalic. ABDOMEN: Soft. Nondistended. Nontender. Good ostomy output. Small amount of serosanguineous drainage from mucous fistula. NEUROLOGIC: Alert and oriented. Cranial nerves II through XII grossly intact. ASSESSMENT: 1. Pneumatosis intestinalis status post exploratory laparotomy with right colectomy, end ileostomy, mucous fistula and repair of umbilical hernia 2. History of atrial fibrillation 3. UTI on Zosyn 4. GI bleed PLAN: -Continue full liquid diet -Hold Eliquis -Repeat CBC 1200 -Repeat CBC, BMP in the morning -Continue antiemetics -Encourage ambulation, physical therapy on consult -Encourage incentive spirometer -Plans for discharge to rehab later this week -Further recommendations forthcoming per surgeon The impression and plan of care has been dictated as directed. Dr. Alexei Bailey I performed a history and examination of this patient, discussed the same with the dictator. I agree with the dictator's note ,documented as a scribe. Any additional findings or plans will be noted. Objective - Vital Signs Vital signs: Vital Signs Temp 97.4 F L 06/26/21 05:36 Pulse 71 06/26/21 08:23 Resp 18 06/26/21 05:36 BP 96/50 06/26/21 08:23 Pulse Ox 98 06/26/21 08:23 Intake & Output 06/25/21 06/26/21 06/26/21 18:59 06:59 18:59 Intake Total 400 Output Total 550 1600 Balance -550 -1200 Intake: Oral 400 Output: Urine 550 300 Stool 1300 Other: Voiding Method Incontinent Incontinent External Catheter External Catheter # Bowel Movements 1 ABP, PAP, CO, CI - Last Documented Arterial Blood Pressure 158/54 - Labs CBC & Chem 7: 06/26/21 05:52 06/26/21 05:52 Labs: Abnormal Lab Results - Last 24 Hours (Table) 06/25/21 06/25/21 06/25/21 Range/Units 05:17 12:16 17:47 WBC (3.8-10.6) k/uL RBC (3.80-5.40) m/uL Hgb (11.4-16.0) gm/dL MCV (80.0-100.0) fL MCHC (31.0-37.0) g/dL Sodium 136 L (137-145) mmol/L BUN 20 H (7-17) mg/dL Creatinine 1.43 H (0.52-1.04) mg/dL Glucose 149 H (74-99) mg/dL POC Glucose (mg/dL) 141 H 151 H (75-99) mg/dL Calcium 7.9 L (8.4-10.2) mg/dL Alkaline Phosphatase 139 H (38-126) U/L Total Protein 5.2 L (6.3-8.2) g/dL Albumin 2.3 L (3.5-5.0) g/dL 06/25/21 06/26/21 06/26/21 Range/Units 20:06 05:52 08:05 WBC 11.2 H (3.8-10.6) k/uL RBC 3.60 L (3.80-5.40) m/uL Hgb 11.3 L (11.4-16.0) gm/dL MCV 101.7 H (80.0-100.0) fL MCHC 30.9 L (31.0-37.0) g/dL Sodium (137-145) mmol/L BUN (7-17) mg/dL Creatinine (0.52-1.04) mg/dL Glucose (74-99) mg/dL POC Glucose (mg/dL) 116 H 102 H (75-99) mg/dL Calcium (8.4-10.2) mg/dL Alkaline Phosphatase (38-126) U/L Total Protein (6.3-8.2) g/dL Albumin (3.5-5.0) g/dL <Arash Bailey - Last Filed: 06/26/21 17:04> Subjective As above. Patient had bleeding this morning that was thought to be rectal in origin. No output from the mucous fistula. Hemoglobin stable at this time. Agree with holding on liquids for now. Continue advancing diet as tolerated as the patient otherwise seems to be doing well. We'll reevaluate tomorrow. Objective - Vital Signs Vital signs: Vital Signs Temp 97.6 F 06/26/21 12:24 Pulse 74 06/26/21 12:24 Resp 16 06/26/21 12:24 BP 124/62 06/26/21 12:24 Pulse Ox 97 06/26/21 12:24 Intake & Output 06/25/21 06/26/21 06/26/21 18:59 06:59 18:59 Intake Total 400 Output Total 550 1600 Balance -550 -1200 Weight 85.1 kg Intake: Oral 400 Output: Urine 550 300 Stool 1300 Other: Voiding Method Incontinent Incontinent Incontinent External Catheter External Catheter # Bowel Movements 1 ABP, PAP, CO, CI - Last Documented Arterial Blood Pressure 158/54 - Labs CBC & Chem 7: 06/26/21 11:48 06/26/21 05:52 Labs: Abnormal Lab Results - Last 24 Hours (Table) 06/25/21 06/25/21 06/25/21 Range/Units 05:17 17:47 20:06 WBC (3.8-10.6) k/uL RBC (3.80-5.40) m/uL Hgb (11.4-16.0) gm/dL MCV (80.0-100.0) fL MCHC (31.0-37.0) g/dL Sodium 136 L (137-145) mmol/L Carbon Dioxide (21.6-31.8) mmol/L Anion Gap (4.00-12.00) mmol/L BUN 20 H (7-17) mg/dL Creatinine 1.43 H (0.52-1.04) mg/dL Est GFR (CKD-EPI)AfAm (60.0-200.0) Est GFR (CKD-EPI)NonAf (60.0-200.0) BUN/Creatinine Ratio (12.00-20.00) Ratio Glucose 149 H (74-99) mg/dL POC Glucose (mg/dL) 151 H 116 H (75-99) mg/dL Calcium 7.9 L (8.4-10.2) mg/dL Alkaline Phosphatase 139 H (38-126) U/L Total Protein 5.2 L (6.3-8.2) g/dL Albumin 2.3 L (3.5-5.0) g/dL Albumin/Globulin Ratio (1.60-3.17) g/dL 06/26/21 06/26/21 06/26/21 Range/Units 05:52 05:52 08:05 WBC 11.2 H (3.8-10.6) k/uL RBC 3.60 L (3.80-5.40) m/uL Hgb 11.3 L (11.4-16.0) gm/dL MCV 101.7 H (80.0-100.0) fL MCHC 30.9 L (31.0-37.0) g/dL Sodium (137-145) mmol/L Carbon Dioxide 19.4 L (21.6-31.8) mmol/L Anion Gap 12.40 H (4.00-12.00) mmol/L BUN (7-17) mg/dL Creatinine (0.52-1.04) mg/dL Est GFR (CKD-EPI)AfAm 41.0 L (60.0-200.0) Est GFR (CKD-EPI)NonAf 35.3 L (60.0-200.0) BUN/Creatinine Ratio 11.84 L (12.00-20.00) Ratio Glucose (74-99) mg/dL POC Glucose (mg/dL) 102 H (75-99) mg/dL Calcium 8.0 L (8.4-10.2) mg/dL Alkaline Phosphatase (38-126) U/L Total Protein 5.0 L (6.3-8.2) g/dL Albumin 2.3 L (3.5-5.0) g/dL Albumin/Globulin Ratio 0.87 L (1.60-3.17) g/dL 06/26/21 06/26/21 Range/Units 11:48 12:24 WBC 12.0 H (3.8-10.6) k/uL RBC 3.25 L (3.80-5.40) m/uL Hgb 10.5 L (11.4-16.0) gm/dL MCV 104.9 H (80.0-100.0) fL MCHC 30.9 L (31.0-37.0) g/dL Sodium (137-145) mmol/L Carbon Dioxide (21.6-31.8) mmol/L Anion Gap (4.00-12.00) mmol/L BUN (7-17) mg/dL Creatinine (0.52-1.04) mg/dL Est GFR (CKD-EPI)AfAm (60.0-200.0) Est GFR (CKD-EPI)NonAf (60.0-200.0) BUN/Creatinine Ratio (12.00-20.00) Ratio Glucose (74-99) mg/dL POC Glucose (mg/dL) 125 H (75-99) mg/dL Calcium (8.4-10.2) mg/dL Alkaline Phosphatase (38-126) U/L Total Protein (6.3-8.2) g/dL Albumin (3.5-5.0) g/dL Albumin/Globulin Ratio (1.60-3.17) g/dL Assessment and Plan (1) Pneumatosis intestinalis Current Visit: Yes Status: Acute Code(s): K63.89 - OTHER SPECIFIED DISEASES OF INTESTINE SNOMED Code(s): 60381477
[2021-06-26 12:25] LABS: Glucose,Whole Blood 125 mg/dL (75-99)
[2021-06-26 12:27] LABS: HCT 34.1 % (34.0-46.0); HGB 10.5 gm/dL (11.4-16.0); Hypochromasia Moderate; MCH 32.4 pg (25.0-35.0); MCHC 30.9 g/dL (31.0-37.0); MCV 104.9 fL (80.0-100.0); Macrocytosis Slight; Mean Platelet Volume 8.4; Platelet Count 277 k/uL (150-450); RBC 3.25 m/uL (3.80-5.40); RDW 13.3 % (11.5-15.5)
--- NOTE | 2021-06-26 12:46 | P.PN ---
<Richard Garrett - Last Filed: 06/26/21 12:22> Subjective Progress Note Date: 06/26/21 [facility] IS PROVIDING COVERAGE FOR [facility] (DR. YOON, DR. DARLING, AND DR. MARTINO) ON 06/26/21-06/27/21 PLEASE CONTACT US ON PERFECT SERVE WITH ANY QUESTIONS, NEEDS, OR CONCERNS. Hospital course: Patient is a very pleasant 80-year-old female currently admitted status post reports of abdominal pain and found to have colon obstruction with pneumatosis right colon and umbilical hernia. She is Status post exploratory laparotomy with right colectomy, and ileostomy, mucous fistula, and repair of umbilical hernia completed by Dr. Quiñonez on 06/20/21. Physical exam: Patient seen and fully evaluated at the bedside this morning.she reports postsurgical pain is controlled. She is toleratinga full liquid diet denies any nausea, vomiting, chest pain, palpitations, shortness of breath, or any other complaints at this time.morning labs revealed mild leukocytosis with WBC count of 11.2, macrocytic microchromic anemia with hemoglobin of 11.3, hematocrit 36.7, MCV 101.7, MCH 31.4, MCHC 30.9. BMP revealing elevated anion gap of 12.40. Vital signs reviewed and stable. General: Nontoxic, no distress and appears stated age. Derm: Skin warm and dry, normal coloration for ethnicity. Head: Atraumatic, normocephalic and symmetric. Eyes: EOMs intact, no lid lag, and anicteric sclera Mouth: no lip lesions, mucus membranes moist Cardiovascular: regular rate and rhythm with normal S1S2, no murmur, positive posterior tibial pulses bilaterally, and cap refill < 2 seconds. Lungs: Respirations even, regular, and unlabored on room air. Lungs CTA bilaterally, no rhonchi, no rales, no wheezing, and no accessory muscle usage. Abdominal: midline abdominal incision with dressing clean dry and intact. colostomy bag right lower quadrant with very small amount of fecal matter present, mucous fistula left upper quadrant. Ext: ROM intact. No gross muscle atrophy, no edema, no contractures Neuro: Speech clear, face symmetrical and CN II-XII grossly intact with no noted focal neuro deficits Psych: Alert and oriented to person, place, time, and situation. Appropriate and pleasant affect. Assessment and Plan of Care: Abdominal pain resulting from colon obstruction with pneumatosis right colon and umbilical hernia Status post exploratory laparotomy with right colectomy, and ileostomy, mucous fistula, and repair of umbilical hernia completed by Dr. Quiñonez on 06/20/21 -Continue full liquid diet, advance as recommended by surgery team. -Postoperative dressing changes, Pain management, DVT prophylaxis, and advancement of diet by general surgery team. -Continue IV antibiotics Zosyn E. coli positive UTI -Continue IV antibiotic with Zosyn Paroxysmal atrial fibrillation. -Cardiology following, appreciate further recommendations. -Continue Lopressor 50 mg twice daily, eliquis 2.5 mg twice daily. Chronic diastolic heart failure. -Continue metipranolol. Acute kidney injury with chronic kidney disease stage III, Resolved. -Avoid nephrotoxic agents, continue to monitor. -Continue PhosLo 667 mg 3 times daily. Acute blood loss anemia with hemoglobin dropped 3 g, expected with surgery. Continue to monitor, transfuse if hemoglobin less than 7. Diabetes mellitus type II. -Glycemic protocol with NovoLog sliding scale -Heart healthy and carb consistent diet Hyperlipidemia. -Continue daily medication regimen with pravastatin 40 mg daily. Hypertension Monitor vital signs and continue daily medication regimen with amlodipine CODE STATUS: full code DVT prophylaxis: Eliquis Discussed with: Patient and RN Anticipated discharge date: clinical course to determine Anticipated discharge place: Subacute rehab at [facility] or [facility], PT and OT consults A total of minutes was spent on the care of this complex patient more than 50% of the time was spent in counseling and care coordination. Objective - Vital Signs Vital signs: Vital Signs Temp 97.4 F L 06/26/21 05:36 Pulse 71 06/26/21 08:07 Resp 18 06/26/21 05:36 BP 100/63 06/26/21 08:07 Pulse Ox 96 06/26/21 05:36 Intake & Output 06/25/21 06/26/21 06/26/21 18:59 06:59 18:59 Intake Total 400 Output Total 550 1600 Balance -550 -1200 Intake: Oral 400 Output: Urine 550 300 Stool 1300 Other: Voiding Method Incontinent Incontinent External Catheter External Catheter # Bowel Movements 1 ABP, PAP, CO, CI - Last Documented Arterial Blood Pressure 158/54 - Labs CBC & Chem 7: 06/26/21 05:52 06/26/21 05:52 Labs: Abnormal Lab Results - Last 24 Hours (Table) 06/25/21 06/25/21 06/25/21 Range/Units 05:17 12:16 17:47 WBC (3.8-10.6) k/uL RBC (3.80-5.40) m/uL Hgb (11.4-16.0) gm/dL MCV (80.0-100.0) fL MCHC (31.0-37.0) g/dL Sodium 136 L (137-145) mmol/L BUN 20 H (7-17) mg/dL Creatinine 1.43 H (0.52-1.04) mg/dL Glucose 149 H (74-99) mg/dL POC Glucose (mg/dL) 141 H 151 H (75-99) mg/dL Calcium 7.9 L (8.4-10.2) mg/dL Alkaline Phosphatase 139 H (38-126) U/L Total Protein 5.2 L (6.3-8.2) g/dL Albumin 2.3 L (3.5-5.0) g/dL 06/25/21 06/26/21 06/26/21 Range/Units 20:06 05:52 08:05 WBC 11.2 H (3.8-10.6) k/uL RBC 3.60 L (3.80-5.40) m/uL Hgb 11.3 L (11.4-16.0) gm/dL MCV 101.7 H (80.0-100.0) fL MCHC 30.9 L (31.0-37.0) g/dL Sodium (137-145) mmol/L BUN (7-17) mg/dL Creatinine (0.52-1.04) mg/dL Glucose (74-99) mg/dL POC Glucose (mg/dL) 116 H 102 H (75-99) mg/dL Calcium (8.4-10.2) mg/dL Alkaline Phosphatase (38-126) U/L Total Protein (6.3-8.2) g/dL Albumin (3.5-5.0) g/dL <Kitty Lutz - Last Filed: 06/26/21 14:24> Subjective Patient seen and examined independently. Patient was also seen by Richard Tami, KNOWLEDGE MANAGEMENT CONSULTANT and case was discussed. I am in agreement with subjective, physical exam, assessment and plan as written above and amended below. Pain is well controlled. No chest pain, no shortness of breath, no nausea, no vomiting, + output in ostomy General: non toxic, no distress, appears at stated age Derm: warm, dry Head: atraumatic, normocephalic, symmetric Eyes: EOMI, no lid lag, anicteric sclera Mouth: no lip lesion, mucus membranes dry Cardiovascular: S1S2 reg, no murmur, positive posterior tibial pulse bilateral, Lungs: CTA bilateral, no rhonchi, no rales , no accessory muscle use Abdominal: soft, +tender to palpation diffusely, no guarding, no appreciable organomegaly+ 2 different ostomy bags in place Ext: no gross muscle atrophy, no edema, no contractures Psych: Alert, oriented, appropriate affect Right Adenxal abnormality, RIght lung lesion with spiculation (7mm) - outpatinet futher eval - recommended CA 125 or [facility] - will refer to obgyn hospitalist physician on discharge. - outpatient dedicated CT chest Echocardiogram was severe pulmonary hypertension Objective - Vital Signs Vital signs: Vital Signs Temp 97.6 F 06/26/21 12:24 Pulse 74 06/26/21 12:24 Resp 16 06/26/21 12:24 BP 124/62 06/26/21 12:24 Pulse Ox 97 06/26/21 12:24 Intake & Output 06/25/21 06/26/21 06/26/21 18:59 06:59 18:59 Intake Total 400 Output Total 550 1600 Balance -550 -1200 Weight 85.1 kg Intake: Oral 400 Output: Urine 550 300 Stool 1300 Other: Voiding Method Incontinent Incontinent Incontinent External Catheter External Catheter # Bowel Movements 1 ABP, PAP, CO, CI - Last Documented Arterial Blood Pressure 158/54 - Labs CBC & Chem 7: 06/26/21 11:48 06/26/21 05:52 Labs: Abnormal Lab Results - Last 24 Hours (Table) 06/25/21 06/25/21 06/25/21 Range/Units 05:17 17:47 20:06 WBC (3.8-10.6) k/uL RBC (3.80-5.40) m/uL Hgb (11.4-16.0) gm/dL MCV (80.0-100.0) fL MCHC (31.0-37.0) g/dL Sodium 136 L (137-145) mmol/L Carbon Dioxide (21.6-31.8) mmol/L Anion Gap (4.00-12.00) mmol/L BUN 20 H (7-17) mg/dL Creatinine 1.43 H (0.52-1.04) mg/dL Est GFR (CKD-EPI)AfAm (60.0-200.0) Est GFR (CKD-EPI)NonAf (60.0-200.0) BUN/Creatinine Ratio (12.00-20.00) Ratio Glucose 149 H (74-99) mg/dL POC Glucose (mg/dL) 151 H 116 H (75-99) mg/dL Calcium 7.9 L (8.4-10.2) mg/dL Alkaline Phosphatase 139 H (38-126) U/L Total Protein 5.2 L (6.3-8.2) g/dL Albumin 2.3 L (3.5-5.0) g/dL Albumin/Globulin Ratio (1.60-3.17) g/dL 06/26/21 06/26/21 06/26/21 Range/Units 05:52 05:52 08:05 WBC 11.2 H (3.8-10.6) k/uL RBC 3.60 L (3.80-5.40) m/uL Hgb 11.3 L (11.4-16.0) gm/dL MCV 101.7 H (80.0-100.0) fL MCHC 30.9 L (31.0-37.0) g/dL Sodium (137-145) mmol/L Carbon Dioxide 19.4 L (21.6-31.8) mmol/L Anion Gap 12.40 H (4.00-12.00) mmol/L BUN (7-17) mg/dL Creatinine (0.52-1.04) mg/dL Est GFR (CKD-EPI)AfAm 41.0 L (60.0-200.0) Est GFR (CKD-EPI)NonAf 35.3 L (60.0-200.0) BUN/Creatinine Ratio 11.84 L (12.00-20.00) Ratio Glucose (74-99) mg/dL POC Glucose (mg/dL) 102 H (75-99) mg/dL Calcium 8.0 L (8.4-10.2) mg/dL Alkaline Phosphatase (38-126) U/L Total Protein 5.0 L (6.3-8.2) g/dL Albumin 2.3 L (3.5-5.0) g/dL Albumin/Globulin Ratio 0.87 L (1.60-3.17) g/dL 06/26/21 06/26/21 Range/Units 11:48 12:24 WBC 12.0 H (3.8-10.6) k/uL RBC 3.25 L (3.80-5.40) m/uL Hgb 10.5 L (11.4-16.0) gm/dL MCV 104.9 H (80.0-100.0) fL MCHC 30.9 L (31.0-37.0) g/dL Sodium (137-145) mmol/L Carbon Dioxide (21.6-31.8) mmol/L Anion Gap (4.00-12.00) mmol/L BUN (7-17) mg/dL Creatinine (0.52-1.04) mg/dL Est GFR (CKD-EPI)AfAm (60.0-200.0) Est GFR (CKD-EPI)NonAf (60.0-200.0) BUN/Creatinine Ratio (12.00-20.00) Ratio Glucose (74-99) mg/dL POC Glucose (mg/dL) 125 H (75-99) mg/dL Calcium (8.4-10.2) mg/dL Alkaline Phosphatase (38-126) U/L Total Protein (6.3-8.2) g/dL Albumin (3.5-5.0) g/dL Albumin/Globulin Ratio (1.60-3.17) g/dL
[2021-06-26 17:21] LABS: Glucose,Whole Blood 123 mg/dL (75-99)
[2021-06-26 18:04] LABS: Band Neutrophils % 1 %; Eosinophils # (M) 0.12 k/uL (0-0.7); Lymphocytes # (M) 1.92 k/uL (1.0-4.8); Metamyelocytes # (M) 0.12 k/uL (0); Metamyelocytes % 1 %; Monocytes # (M) 0.72 k/uL (0-1.0); Myelocytes # (M) 0.12 k/uL (0); Myelocytes % 1 %; Neutrophils % (M) 77 %; Nucleated Red Blood Cells 0 /100 WBC (0-0); Total Cells Counted 200
[2021-06-26 18:05] LABS: Toxic Granulation Present
[2021-06-26 20:05] LABS: Glucose,Whole Blood 164 mg/dL (75-99)
[2021-06-27] MEDS: ACETAMINOPHEN IV (For NPO) 1,000 MG in EMPTY BAG 1 BAG IVPB SCH ×4 (05:00→23:16)
[2021-06-27] MEDS: PIPERACILLIN-TAZOBACTAM 3.375 GM in SODIUM CHLORIDE 0.9% 100 ML IVPB SCH ×3 (05:07→20:50)
[2021-06-27 07:31] LABS: Basophils # (A) 0.1 k/uL (0-0.2); Basophils % (A) 0 %; Eosinophils # (A) 0.3 k/uL (0-0.7); Eosinophils % (A) 2 %; HCT 26.2 % (34.0-46.0); HGB 8.8 gm/dL (11.4-16.0); Lymphocytes % (A) 13 %; MCH 33.5 pg (25.0-35.0); MCHC 33.5 g/dL (31.0-37.0); Mean Platelet Volume 8.7; Monocytes # (A) 1.1 k/uL (0-1.0); Monocytes % (A) 7 %; Neutrophils # (A) 11.5 k/uL (1.3-7.7); Neutrophils % (A) 76 %; Platelet Count 290 k/uL (150-450); RBC 2.62 m/uL (3.80-5.40); RDW 13.5 % (11.5-15.5); WBC 15.2 k/uL (3.8-10.6)
[2021-06-27 07:39] LABS: Glucose,Whole Blood 107 mg/dL (75-99)
[2021-06-27] MEDS: INSULIN ASPART (NovoLOG) 100 UNIT/ML VIAL SQ SCH ×4 (08:23→20:49)
[2021-06-27] MEDS: FLUoxetine HCL 20 MG CAP PO SCH (08:57)
[2021-06-27] MEDS: amLODIPine 5 MG TAB PO SCH (08:57)
[2021-06-27] MEDS: METOPROLOL TARTRATE 50 MG TAB PO SCH ×2 (08:58→20:38)
[2021-06-27] MEDS: CALCIUM ACETATE 667 MG TAB PO SCH ×3 (08:58→20:39)
[2021-06-27] MEDS: PRAVASTATIN SODIUM 40 MG TAB PO SCH (08:59)
[2021-06-27] MEDS: PANTOPRAZOLE 40 MG/10 ML VIAL IV SCH (10:08)
[2021-06-27 11:24] LABS: African American GFR (CKD) 32.7 (60.0-200.0); Anion Gap 13.3 mmol/L (4.00-12.00); BUN/Creat Ratio 10.76 Ratio (12.00-20.00); Blood Urea Nitrogen 18.3 mg/dL (9.0-27.0); Calcium 7.8 mg/dL (8.7-10.3); Carbon Dioxide 19.1 mmol/L (21.6-31.8); Non-African American GFR(CKD) 28.2 (60.0-200.0)
[2021-06-27 12:32] LABS: Glucose,Whole Blood 131 mg/dL (75-99)
--- NOTE | 2021-06-27 12:50 | P.PN ---
<Richard Garrett - Last Filed: 06/27/21 12:35> Subjective Progress Note Date: 06/27/21 [facility] IS PROVIDING COVERAGE FOR [facility] (DR. YOON, DR. DARLING, AND DR. MARTINO) ON 06/26/21-06/27/21 PLEASE CONTACT US ON PERFECT SERVE WITH ANY QUESTIONS, NEEDS, OR CONCERNS. Hospital course: Patient is a very pleasant 80-year-old female currently admitted status post reports of abdominal pain and found to have colon obstruction with pneumatosis right colon and umbilical hernia. She is Status post exploratory laparotomy with right colectomy, and ileostomy, mucous fistula, and repair of umbilical hernia completed by Dr. Quiñonez on 06/20/21. Physical exam: Patient seen and fully evaluated at the bedside this morning.she reports postsurgical pain is controlled. Morning labs reveal worsening anemia with hemoglobin of 8.8, orders placed for a stat repeat and worsening leukocytosis with WBC count of 15.2. In addition patient with elevated renal function with BUN of 18.3 and creatinine of 1.7 with GFR of 28.2. We will continue to monitor these levels closely with repeat a.m. labs. Patient reports feeling slightly better than yesterday. She is having adequate output from ileostomy. She denies having any chest pain, palpitations, shortness of breath, or any other complaints at this time. Her diet has been increased to regular diet, we will monitor for toleration. STAT order placed for repeat CBC. Vital signs reviewed and stable. General: Nontoxic, no distress and appears stated age. Derm: Skin warm and dry, normal coloration for ethnicity. Head: Atraumatic, normocephalic and symmetric. Eyes: EOMs intact, no lid lag, and anicteric sclera Mouth: no lip lesions, mucus membranes moist Cardiovascular: regular rate and rhythm with normal S1S2, no murmur, positive posterior tibial pulses bilaterally, and cap refill < 2 seconds. Lungs: Respirations even, regular, and unlabored on room air. Lungs CTA bilaterally, no rhonchi, no rales, no wheezing, and no accessory muscle usage. Abdominal: midline abdominal incision with dressing clean dry and intact. colostomy bag right lower quadrant with very small amount of fecal matter pre sent, mucous fistula left upper quadrant. Ext: ROM intact. No gross muscle atrophy, no edema, no contractures Neuro: Speech clear, face symmetrical and CN II-XII grossly intact with no noted focal neuro deficits Psych: Alert and oriented to person, place, time, and situation. Appropriate and pleasant affect. Assessment and Plan of Care: Abdominal pain resulting from colon obstruction with pneumatosis right colon and umbilical hernia Status post exploratory laparotomy with right colectomy, and ileostomy, mucous fistula, and repair of umbilical hernia completed by Dr. Quiñonez on 06/20/21 -Diet was advanced to regular diet, monitor for toleration -Postoperative dressing changes, Pain management, DVT prophylaxis, and advancement of diet by general surgery team. -Continue IV antibiotics Zosyn E. coli positive UTI -Continue IV antibiotic with Zosyn Paroxysmal atrial fibrillation. -Cardiology following, appreciate further recommendations. -Continue Lopressor 50 mg twice daily, eliquis 2.5 mg twice daily. Chronic diastolic heart failure. -Continue metoprolol Right adnexal abnormality, right lung lesion with spiculation (7mm) Outpatient follow-up for further evaluation, recommend [facility] or [facility] We will need referral to [facility]NAGER upon discharge Recommend Outpatient dedicated CT chest Echocardiogram revealing severe pulmonary hypertension Acute kidney injury with chronic kidney disease stage III, Resolved. -Avoid nephrotoxic agents, continue to monitor. -Continue PhosLo 667 mg 3 times daily. Acute blood loss anemia with hemoglobin dropped 3 g, expected with surgery. Continue to monitor, transfuse if hemoglobin less than 7. Diabetes mellitus type II. -Glycemic protocol with NovoLog sliding scale -Heart healthy and carb consistent diet Hyperlipidemia. -Continue daily medication regimen with pravastatin 40 mg daily. Hypertension Monitor vital signs and continue daily medication regimen with amlodipine Thank you for allowing us to participate in the care of this pleasant patient. Do not hesitate to contact us with questions. Someone can be reached from the [facility] hospitalist group all hours of the day at [phone] or via [employer]. Objective - Vital Signs Vital signs: Vital Signs Temp 97.6 F 06/27/21 04:28 Pulse 75 06/27/21 04:28 Resp 16 06/27/21 04:28 BP 166/81 06/27/21 04:28 Pulse Ox 97 06/27/21 04:28 Intake & Output 06/26/21 06/27/21 06/27/21 18:59 06:59 18:59 Intake Total 800 Output Total 950 2000 Balance -950 -1200 Weight 85.1 kg Intake: Intake, IV Titration 400 Amount ACETAMINOPHEN IV (For NPO 200 ) 1,000 mg In Empty Bag 1 bag @ 400 mls/hr IVPB Q6HR [facility] Rx#:[id number] Piperacillin-Tazobactam 3 200 .375 gm In Sodium Chloride 0.9% 100 ml @ 25 mls/hr IVPB Q8H [facility] Rx#: [id number] Oral 400 Output: Urine 500 Stool 950 1500 Other: Voiding Method Incontinent Diaper External Catheter # Bowel Movements 3 ABP, PAP, CO, CI - Last Documented Arterial Blood Pressure 158/54 - Labs CBC & Chem 7: 06/27/21 06:21 06/27/21 06:21 Labs: Abnormal Lab Results - Last 24 Hours (Table) 06/26/21 06/26/21 06/26/21 Range/Units 05:52 11:48 12:24 WBC 12.0 H (3.8-10.6) k/uL RBC 3.25 L (3.80-5.40) m/uL Hgb 10.5 L (11.4-16.0) gm/dL Hct (34.0-46.0) % MCV 104.9 H (80.0-100.0) fL MCHC 30.9 L (31.0-37.0) g/dL Neutrophils # (1.3-7.7) k/uL Neutrophils # (Manual) 9.30 H (1.3-7.7) k/uL Monocytes # (0-1.0) k/uL Metamyelocytes # (Man) 0.12 H (0) k/uL Myelocytes # (Manual) 0.12 H (0) k/uL Carbon Dioxide 19.4 L (21.6-31.8) mmol/L Anion Gap 12.40 H (4.00-12.00) mmol/L Est GFR (CKD-EPI)AfAm 41.0 L (60.0-200.0) Est GFR (CKD-EPI)NonAf 35.3 L (60.0-200.0) BUN/Creatinine Ratio 11.84 L (12.00-20.00) Ratio POC Glucose (mg/dL) 125 H (75-99) mg/dL Calcium 8.0 L (8.7-10.3) mg/dL Total Protein 5.0 L (6.2-8.2) g/dL Albumin 2.3 L (3.8-4.9) g/dL Albumin/Globulin Ratio 0.87 L (1.60-3.17) g/dL 06/26/21 06/26/21 06/27/21 Range/Units 17:16 19:52 06:21 WBC 15.2 H (3.8-10.6) k/uL RBC 2.62 L (3.80-5.40) m/uL Hgb 8.8 L D (11.4-16.0) gm/dL Hct 26.2 L (34.0-46.0) % MCV (80.0-100.0) fL MCHC (31.0-37.0) g/dL Neutrophils # 11.5 H (1.3-7.7) k/uL Neutrophils # (Manual) (1.3-7.7) k/uL Monocytes # 1.1 H (0-1.0) k/uL Metamyelocytes # (Man) (0) k/uL Myelocytes # (Manual) (0) k/uL Carbon Dioxide (21.6-31.8) mmol/L Anion Gap (4.00-12.00) mmol/L Est GFR (CKD-EPI)AfAm (60.0-200.0) Est GFR (CKD-EPI)NonAf (60.0-200.0) BUN/Creatinine Ratio (12.00-20.00) Ratio POC Glucose (mg/dL) 123 H 164 H (75-99) mg/dL Calcium (8.7-10.3) mg/dL Total Protein (6.2-8.2) g/dL Albumin (3.8-4.9) g/dL Albumin/Globulin Ratio (1.60-3.17) g/dL 06/27/21 Range/Units 07:37 WBC (3.8-10.6) k/uL RBC (3.80-5.40) m/uL Hgb (11.4-16.0) gm/dL Hct (34.0-46.0) % MCV (80.0-100.0) fL MCHC (31.0-37.0) g/dL Neutrophils # (1.3-7.7) k/uL Neutrophils # (Manual) (1.3-7.7) k/uL Monocytes # (0-1.0) k/uL Metamyelocytes # (Man) (0) k/uL Myelocytes # (Manual) (0) k/uL Carbon Dioxide (21.6-31.8) mmol/L Anion Gap (4.00-12.00) mmol/L Est GFR (CKD-EPI)AfAm (60.0-200.0) Est GFR (CKD-EPI)NonAf (60.0-200.0) BUN/Creatinine Ratio (12.00-20.00) Ratio POC Glucose (mg/dL) 107 H (75-99) mg/dL Calcium (8.7-10.3) mg/dL Total Protein (6.2-8.2) g/dL Albumin (3.8-4.9) g/dL Albumin/Globulin Ratio (1.60-3.17) g/dL <Kitty Lutz - Last Filed: 06/27/21 13:49> Subjective Patient seen and examined independently. Patient was also seen by Richard Garrett NP and case was discussed. I am in agreement with subjective, physical exam, assessment and plan as written above and amended below. Patient seen and examined at bedside. Pain is well controlled. Having stool into her ileostomy. No nausea or vomiting. Tolerating her diet. General: non toxic, no distress, appears at stated age Derm: warm, dry Head: atraumatic, normocephalic, symmetric Cardiovascular: S1S2 reg, no murmur, positive posterior tibial pulse bilateral, Lungs: Decreased breath sounds bilateral, no rhonchi, no rales , no accessory muscle use Abdominal: soft, tender to palpation diffusely, no guarding, no appreciable organomegaly Ext: no gross muscle atrophy, no edema, no contractures Psych: Alert, oriented, appropriate affect Leukocytosis is increasing. Likely reactive -Monitor fever profile -Repeat CBC in a.m. Objective - Vital Signs Vital signs: Vital Signs Temp 98.0 F 06/27/21 12:33 Pulse 65 06/27/21 12:33 Resp 17 06/27/21 12:33 BP 150/68 06/27/21 12:33 Pulse Ox 96 06/27/21 12:33 Intake & Output 06/26/21 06/27/21 06/27/21 18:59 06:59 18:59 Intake Total 800 Output Total 950 2000 Balance -950 -1200 Weight 85.1 kg Intake: Intake, IV Titration 400 Amount ACETAMINOPHEN IV (For NPO 200 ) 1,000 mg In Empty Bag 1 bag @ 400 mls/hr IVPB Q6HR [facility] Rx#:[id number] Piperacillin-Tazobactam 3 200 .375 gm In Sodium Chloride 0.9% 100 ml @ 25 mls/hr IVPB Q8H [facility] Rx#: [id number] Oral 400 Output: Urine 500 Stool 950 1500 Other: Voiding Method Incontinent Diaper Diaper External Catheter External Catheter # Voids 1 # Bowel Movements 3 1 ABP, PAP, CO, CI - Last Documented Arterial Blood Pressure 158/54 - Labs CBC & Chem 7: 06/27/21 06:21 06/27/21 06:21 Labs: Abnormal Lab Results - Last 24 Hours (Table) 06/26/21 06/26/21 06/26/21 Range/Units 11:48 17:16 19:52 WBC (3.8-10.6) k/uL RBC (3.80-5.40) m/uL Hgb (11.4-16.0) gm/dL Hct (34.0-46.0) % Neutrophils # (1.3-7.7) k/uL Neutrophils # (Manual) 9.30 H (1.3-7.7) k/uL Monocytes # (0-1.0) k/uL Metamyelocytes # (Man) 0.12 H (0) k/uL Myelocytes # (Manual) 0.12 H (0) k/uL Carbon Dioxide (21.6-31.8) mmol/L Anion Gap (4.00-12.00) mmol/L Creatinine (0.6-1.5) mg/dL Est GFR (CKD-EPI)AfAm (60.0-200.0) Est GFR (CKD-EPI)NonAf (60.0-200.0) BUN/Creatinine Ratio (12.00-20.00) Ratio POC Glucose (mg/dL) 123 H 164 H (75-99) mg/dL Calcium (8.7-10.3) mg/dL 06/27/21 06/27/21 06/27/21 Range/Units 06:21 06:21 07:37 WBC 15.2 H (3.8-10.6) k/uL RBC 2.62 L (3.80-5.40) m/uL Hgb 8.8 L D (11.4-16.0) gm/dL Hct 26.2 L (34.0-46.0) % Neutrophils # 11.5 H (1.3-7.7) k/uL Neutrophils # (Manual) (1.3-7.7) k/uL Monocytes # 1.1 H (0-1.0) k/uL Metamyelocytes # (Man) (0) k/uL Myelocytes # (Manual) (0) k/uL Carbon Dioxide 19.1 L (21.6-31.8) mmol/L Anion Gap 13.30 H (4.00-12.00) mmol/L Creatinine 1.7 H (0.6-1.5) mg/dL Est GFR (CKD-EPI)AfAm 32.7 L (60.0-200.0) Est GFR (CKD-EPI)NonAf 28.2 L (60.0-200.0) BUN/Creatinine Ratio 10.76 L (12.00-20.00) Ratio POC Glucose (mg/dL) 107 H (75-99) mg/dL Calcium 7.8 L (8.7-10.3) mg/dL 06/27/21 Range/Units 12:31 WBC (3.8-10.6) k/uL RBC (3.80-5.40) m/uL Hgb (11.4-16.0) gm/dL Hct (34.0-46.0) % Neutrophils # (1.3-7.7) k/uL Neutrophils # (Manual) (1.3-7.7) k/uL Monocytes # (0-1.0) k/uL Metamyelocytes # (Man) (0) k/uL Myelocytes # (Manual) (0) k/uL Carbon Dioxide (21.6-31.8) mmol/L Anion Gap (4.00-12.00) mmol/L Creatinine (0.6-1.5) mg/dL Est GFR (CKD-EPI)AfAm (60.0-200.0) Est GFR (CKD-EPI)NonAf (60.0-200.0) BUN/Creatinine Ratio (12.00-20.00) Ratio POC Glucose (mg/dL) 131 H (75-99) mg/dL Calcium (8.7-10.3) mg/dL
[2021-06-27 13:26] LABS: Appearance,Urine Clear (Clear); Bacteria,Urine Rare /hpf; Bilirubin,Urine Negative (Negative); Blood,Urine Moderate (Negative); Color,Urine Yellow; Glucose,Urine (UA) Negative (Negative); Ketones,Urine Trace (Negative); Leukocyte Esterase,Urine Trace (Negative); Nitrite,Urine Negative (Negative); PH, Urine 5.5 (5.0-8.0); Protein,Urine 1+ (Negative); RBC,Urine 24 /hpf (0-5); Specific Gravity,Urine 1.025 (1.001-1.035); Squamous Epithelial Cell,Urine 1 /hpf (0-4); Urobilinogen,Urine <2.0 mg/dL (<2.0); WBC,Urine 20 /hpf (0-5)
--- NOTE | 2021-06-27 13:47 | P.PN ---
<Erika Collado - Last Filed: 06/27/21 13:40> Subjective Progress Note Date: 06/27/21 CHIEF COMPLAINT: Colon obstruction HISTORY OF PRESENT ILLNESS: 80-year-old female who came into the hospital with complaints of right-sided abdominal pain. Pain had been increasing over the last 1 week or so with the episodes of nausea and vomiting. Patient she was found to have significant leukocytosis CAT scan showing significant colonic distention with evidence of right-sided ischemic changes and pneumatosis intestinalis. She underwent exploratory laparotomy with right colectomy, end ileostomy, mucous fistula, repair of umbilical hernia on 06/20/2021. Today she is seen and evaluated sitting up in bed. She has been transitioned to regular diet. However patient only had oatmeal this morning but has been tolerating her diet well. Patient denies any abdominal pain, nausea, or vomiting. Yesterday physical therapy work with patient and transferred her into a chair however they did not do any further ambulation due to bleeding that she had. She has not had any further clots from the rectum. Nursing states she had a small tinge pink per rectum and a small bowel movement. Ostomy with good output becoming more performed as well as still green liquid. Fistula bag with minimal amount of serosanguineous drainage. However nursing noticed that the patient is having blood in her urine. The patient is denying any burning with urination. She's been afebrile. WBC 15.2 hemoglobin 8.8. The patient remains on Zosyn. PHYSICAL EXAM: VITAL SIGNS: Reviewed. GENERAL: Well-developed in no acute distress. HEENT: No sclera icterus. Extraocular movements grossly intact. Moist buccal mucosa. Head is atraumatic, normocephalic. ABDOMEN: Soft. Nondistended. Nontender. Good ostomy output. Scant amount of serosanguineous drainage from mucous fistula. NEUROLOGIC: Alert and oriented. Cranial nerves II through XII grossly intact. ASSESSMENT: 1. Pneumatosis intestinalis status post exploratory laparotomy with right colectomy, end ileostomy, mucous fistula and repair of umbilical hernia 2. History of atrial fibrillation 3. UTI on Zosyn 4. GI bleed 5. Hematuria PLAN: -Regular diet -Hold Eliquis -Repeat daily CBC BMP -Continue antiemetics as needed -Encourage ambulation, physical therapy on consult -Encourage incentive spirometer -Plans for discharge to rehab -Further recommendations forthcoming per surgeon The impression and plan of care has been dictated as directed. Dr. Alexei Bailey I performed a history and examination of this patient, discussed the same with the dictator. I agree with the dictator's note ,documented as a scribe. Any additional findings or plans will be noted. Objective - Vital Signs Vital signs: Vital Signs Temp 97.6 F 06/27/21 04:28 Pulse 68 06/27/21 09:06 Resp 18 06/27/21 08:00 BP 128/57 06/27/21 09:06 Pulse Ox 97 06/27/21 04:28 Intake & Output 06/26/21 06/27/21 06/27/21 18:59 06:59 18:59 Intake Total 800 Output Total 950 2000 Balance -950 -1200 Weight 85.1 kg Intake: Intake, IV Titration 400 Amount ACETAMINOPHEN IV (For NPO 200 ) 1,000 mg In Empty Bag 1 bag @ 400 mls/hr IVPB Q6HR [facility] Rx#:[id number] Piperacillin-Tazobactam 3 200 .375 gm In Sodium Chloride 0.9% 100 ml @ 25 mls/hr IVPB Q8H [facility] Rx#: [id number] Oral 400 Output: Urine 500 Stool 950 1500 Other: Voiding Method Incontinent Diaper Diaper External Catheter External Catheter # Voids 1 # Bowel Movements 3 1 ABP, PAP, CO, CI - Last Documented Arterial Blood Pressure 158/54 - Labs CBC & Chem 7: 06/27/21 06:21 06/27/21 06:21 Labs: Abnormal Lab Results - Last 24 Hours (Table) 06/26/21 06/26/21 06/26/21 Range/Units 05:52 11:48 12:24 WBC 12.0 H (3.8-10.6) k/uL RBC 3.25 L (3.80-5.40) m/uL Hgb 10.5 L (11.4-16.0) gm/dL Hct (34.0-46.0) % MCV 104.9 H (80.0-100.0) fL MCHC 30.9 L (31.0-37.0) g/dL Neutrophils # (1.3-7.7) k/uL Neutrophils # (Manual) 9.30 H (1.3-7.7) k/uL Monocytes # (0-1.0) k/uL Metamyelocytes # (Man) 0.12 H (0) k/uL Myelocytes # (Manual) 0.12 H (0) k/uL Carbon Dioxide 19.4 L (21.6-31.8) mmol/L Anion Gap 12.40 H (4.00-12.00) mmol/L Est GFR (CKD-EPI)AfAm 41.0 L (60.0-200.0) Est GFR (CKD-EPI)NonAf 35.3 L (60.0-200.0) BUN/Creatinine Ratio 11.84 L (12.00-20.00) Ratio POC Glucose (mg/dL) 125 H (75-99) mg/dL Calcium 8.0 L (8.7-10.3) mg/dL Total Protein 5.0 L (6.2-8.2) g/dL Albumin 2.3 L (3.8-4.9) g/dL Albumin/Globulin Ratio 0.87 L (1.60-3.17) g/dL 06/26/21 06/26/21 06/27/21 Range/Units 17:16 19:52 06:21 WBC 15.2 H (3.8-10.6) k/uL RBC 2.62 L (3.80-5.40) m/uL Hgb 8.8 L D (11.4-16.0) gm/dL Hct 26.2 L (34.0-46.0) % MCV (80.0-100.0) fL MCHC (31.0-37.0) g/dL Neutrophils # 11.5 H (1.3-7.7) k/uL Neutrophils # (Manual) (1.3-7.7) k/uL Monocytes # 1.1 H (0-1.0) k/uL Metamyelocytes # (Man) (0) k/uL Myelocytes # (Manual) (0) k/uL Carbon Dioxide (21.6-31.8) mmol/L Anion Gap (4.00-12.00) mmol/L Est GFR (CKD-EPI)AfAm (60.0-200.0) Est GFR (CKD-EPI)NonAf (60.0-200.0) BUN/Creatinine Ratio (12.00-20.00) Ratio POC Glucose (mg/dL) 123 H 164 H (75-99) mg/dL Calcium (8.7-10.3) mg/dL Total Protein (6.2-8.2) g/dL Albumin (3.8-4.9) g/dL Albumin/Globulin Ratio (1.60-3.17) g/dL 06/27/21 Range/Units 07:37 WBC (3.8-10.6) k/uL RBC (3.80-5.40) m/uL Hgb (11.4-16.0) gm/dL Hct (34.0-46.0) % MCV (80.0-100.0) fL MCHC (31.0-37.0) g/dL Neutrophils # (1.3-7.7) k/uL Neutrophils # (Manual) (1.3-7.7) k/uL Monocytes # (0-1.0) k/uL Metamyelocytes # (Man) (0) k/uL Myelocytes # (Manual) (0) k/uL Carbon Dioxide (21.6-31.8) mmol/L Anion Gap (4.00-12.00) mmol/L Est GFR (CKD-EPI)AfAm (60.0-200.0) Est GFR (CKD-EPI)NonAf (60.0-200.0) BUN/Creatinine Ratio (12.00-20.00) Ratio POC Glucose (mg/dL) 107 H (75-99) mg/dL Calcium (8.7-10.3) mg/dL Total Protein (6.2-8.2) g/dL Albumin (3.8-4.9) g/dL Albumin/Globulin Ratio (1.60-3.17) g/dL <Arash Bailey - Last Filed: 06/27/21 17:00> Subjective As above. Patient had some hematuria earlier today reportedly. Rectal bleeding has diminished. Tolerating diet. She feels well. No pain. She is now ambulating. Objective - Vital Signs Vital signs: Vital Signs Temp 98.0 F 06/27/21 12:33 Pulse 65 06/27/21 12:33 Resp 17 06/27/21 12:33 BP 150/68 06/27/21 12:33 Pulse Ox 96 06/27/21 12:33 Intake & Output 06/26/21 06/27/21 06/27/21 18:59 06:59 18:59 Intake Total 800 Output Total 950 2000 Balance -950 -1200 Weight 85.1 kg Intake: Intake, IV Titration 400 Amount ACETAMINOPHEN IV (For NPO 200 ) 1,000 mg In Empty Bag 1 bag @ 400 mls/hr IVPB Q6HR [facility] Rx#:[id number] Piperacillin-Tazobactam 3 200 .375 gm In Sodium Chloride 0.9% 100 ml @ 25 mls/hr IVPB Q8H [facility] Rx#: [id number] Oral 400 Output: Urine 500 Stool 950 1500 Other: Voiding Method Incontinent Diaper Diaper External Catheter External Catheter # Voids 4 # Bowel Movements 3 4 ABP, PAP, CO, CI - Last Documented Arterial Blood Pressure 158/54 - Labs CBC & Chem 7: 06/27/21 06:21 06/27/21 06:21 Labs: Abnormal Lab Results - Last 24 Hours (Table) 06/26/21 06/26/21 06/26/21 Range/Units 11:48 17:16 19:52 WBC (3.8-10.6) k/uL RBC (3.80-5.40) m/uL Hgb (11.4-16.0) gm/dL Hct (34.0-46.0) % Neutrophils # (1.3-7.7) k/uL Neutrophils # (Manual) 9.30 H (1.3-7.7) k/uL Monocytes # (0-1.0) k/uL Metamyelocytes # (Man) 0.12 H (0) k/uL Myelocytes # (Manual) 0.12 H (0) k/uL Carbon Dioxide (21.6-31.8) mmol/L Anion Gap (4.00-12.00) mmol/L Creatinine (0.6-1.5) mg/dL Est GFR (CKD-EPI)AfAm (60.0-200.0) Est GFR (CKD-EPI)NonAf (60.0-200.0) BUN/Creatinine Ratio (12.00-20.00) Ratio POC Glucose (mg/dL) 123 H 164 H (75-99) mg/dL Calcium (8.7-10.3) mg/dL Urine Protein (Negative) Urine Ketones (Negative) Urine Blood (Negative) Ur Leukocyte Esterase (Negative) Urine RBC (0-5) /hpf Urine WBC (0-5) /hpf Urine Bacteria (None) /hpf 06/27/21 06/27/21 06/27/21 Range/Units 06:21 06:21 07:37 WBC 15.2 H (3.8-10.6) k/uL RBC 2.62 L (3.80-5.40) m/uL Hgb 8.8 L D (11.4-16.0) gm/dL Hct 26.2 L (34.0-46.0) % Neutrophils # 11.5 H (1.3-7.7) k/uL Neutrophils # (Manual) (1.3-7.7) k/uL Monocytes # 1.1 H (0-1.0) k/uL Metamyelocytes # (Man) (0) k/uL Myelocytes # (Manual) (0) k/uL Carbon Dioxide 19.1 L (21.6-31.8) mmol/L Anion Gap 13.30 H (4.00-12.00) mmol/L Creatinine 1.7 H (0.6-1.5) mg/dL Est GFR (CKD-EPI)AfAm 32.7 L (60.0-200.0) Est GFR (CKD-EPI)NonAf 28.2 L (60.0-200.0) BUN/Creatinine Ratio 10.76 L (12.00-20.00) Ratio POC Glucose (mg/dL) 107 H (75-99) mg/dL Calcium 7.8 L (8.7-10.3) mg/dL Urine Protein (Negative) Urine Ketones (Negative) Urine Blood (Negative) Ur Leukocyte Esterase (Negative) Urine RBC (0-5) /hpf Urine WBC (0-5) /hpf Urine Bacteria (None) /hpf 06/27/21 06/27/21 Range/Units 12:31 12:55 WBC (3.8-10.6) k/uL RBC (3.80-5.40) m/uL Hgb (11.4-16.0) gm/dL Hct (34.0-46.0) % Neutrophils # (1.3-7.7) k/uL Neutrophils # (Manual) (1.3-7.7) k/uL Monocytes # (0-1.0) k/uL Metamyelocytes # (Man) (0) k/uL Myelocytes # (Manual) (0) k/uL Carbon Dioxide (21.6-31.8) mmol/L Anion Gap (4.00-12.00) mmol/L Creatinine (0.6-1.5) mg/dL Est GFR (CKD-EPI)AfAm (60.0-200.0) Est GFR (CKD-EPI)NonAf (60.0-200.0) BUN/Creatinine Ratio (12.00-20.00) Ratio POC Glucose (mg/dL) 131 H (75-99) mg/dL Calcium (8.7-10.3) mg/dL Urine Protein 1+ H (Negative) Urine Ketones Trace H (Negative) Urine Blood Moderate H (Negative) Ur Leukocyte Esterase Trace H (Negative) Urine RBC 24 H (0-5) /hpf Urine WBC 20 H (0-5) /hpf Urine Bacteria Rare H (None) /hpf Assessment and Plan (1) Pneumatosis intestinalis Current Visit: Yes Status: Acute Code(s): K63.89 - OTHER SPECIFIED DISEASES OF INTESTINE SNOMED Code(s): 59741118
[2021-06-27 17:49] LABS: Glucose,Whole Blood 178 mg/dL (75-99)
[2021-06-27 17:55] LABS: HCT 28.7 % (34.0-46.0); HGB 8.9 gm/dL (11.4-16.0); Hypochromasia Slight; MCH 31.9 pg (25.0-35.0); MCHC 31.2 g/dL (31.0-37.0); MCV 102.2 fL (80.0-100.0); Macrocytosis Slight; Mean Platelet Volume 8.5; Platelet Count 306 k/uL (150-450); RBC 2.81 m/uL (3.80-5.40); RDW 12.9 % (11.5-15.5); WBC 18.7 k/uL (3.8-10.6)
[2021-06-27 20:38] LABS: Glucose,Whole Blood 139 mg/dL (75-99)
[2021-06-28] MEDS: ACETAMINOPHEN IV (For NPO) 1,000 MG in EMPTY BAG 1 BAG IVPB SCH (05:10)
[2021-06-28] MEDS: PIPERACILLIN-TAZOBACTAM 3.375 GM in SODIUM CHLORIDE 0.9% 100 ML IVPB SCH ×3 (05:11→20:22)
[2021-06-28 06:51] LABS: Glucose,Whole Blood 127 mg/dL (75-99)
[2021-06-28] MEDS: INSULIN ASPART (NovoLOG) 100 UNIT/ML VIAL SQ SCH ×5 (07:14→20:39)
[2021-06-28 08:14] LABS: Basophils # (A) 0.1 k/uL (0-0.2); Basophils % (A) 0 %; Eosinophils # (A) 0.4 k/uL (0-0.7); Eosinophils % (A) 3 %; HCT 26.5 % (34.0-46.0); HGB 8.2 gm/dL (11.4-16.0); Hypochromasia Marked; Lymphocytes # (A) 2.3 k/uL (1.0-4.8); Lymphocytes % (A) 14 %; MCH 32.7 pg (25.0-35.0); MCV 105.7 fL (80.0-100.0); Macrocytosis Moderate; Mean Platelet Volume 8.9; Monocytes # (A) 0.8 k/uL (0-1.0); Monocytes % (A) 5 %; Neutrophils # (A) 12.3 k/uL (1.3-7.7); Neutrophils % (A) 76 %; Platelet Count 251 k/uL (150-450); RBC 2.51 m/uL (3.80-5.40); RDW 13.4 % (11.5-15.5); WBC 16.1 k/uL (3.8-10.6)
[2021-06-28 08:29] LABS: African American GFR (CKD) 37 (>60 ml/min/1.73 sqM); Blood Urea Nitrogen 18 mg/dL (7-17); Calcium 8.1 mg/dL (8.4-10.2); Carbon Dioxide 17 mmol/L (22-30); Glucose 117 mg/dL (74-99); Non-African American GFR(CKD) 32 (>60 ml/min/1.73 sqM)
[2021-06-28 08:32] LABS: Anion Gap 7 mmol/L; Chloride 110 mmol/L (98-107); Potassium 4.4 mmol/L (3.5-5.1); Sodium 134 mmol/L (137-145)
[2021-06-28] MEDS: CALCIUM ACETATE 667 MG TAB PO SCH ×3 (09:20→23:38)
[2021-06-28] MEDS: METOPROLOL TARTRATE 50 MG TAB PO SCH ×2 (09:20→20:23)
[2021-06-28] MEDS: PANTOPRAZOLE 40 MG/10 ML VIAL IV SCH (09:20)
[2021-06-28] MEDS: PRAVASTATIN SODIUM 40 MG TAB PO SCH (09:21)
[2021-06-28] MEDS: FLUoxetine HCL 20 MG CAP PO SCH (09:21)
[2021-06-28] MEDS: amLODIPine 5 MG TAB PO SCH (09:21)
--- NOTE | 2021-06-28 11:05 | P.PN ---
Subjective Progress Note Date: 06/28/21 Principal diagnosis: Colon obstruction Patient sitting up in the chair. White blood cell count improved at 16.1, hemoglobin down slightly at 8.2. Denies rectal bleeding or vaginal bleeding. Bilious stool through ileostomy. Tolerating diet. Minimal pain. Objective - Vital Signs Vital signs: Vital Signs Temp 97.6 F 06/28/21 04:11 Pulse 100 06/28/21 09:19 Resp 16 06/28/21 04:11 BP 113/69 06/28/21 09:19 Pulse Ox 95 06/28/21 04:11 Intake & Output 06/27/21 06/28/21 06/28/21 18:59 06:59 18:59 Intake Total 440 Output Total 1000 220 Balance -560 -220 Intake: Intake, IV Titration 200 Amount ACETAMINOPHEN IV (For NPO 100 ) 1,000 mg In Empty Bag 1 bag @ 400 mls/hr IVPB Q6HR [facility] Rx#:[id number] Piperacillin-Tazobactam 3 100 .375 gm In Sodium Chloride 0.9% 100 ml @ 25 mls/hr IVPB Q8H [facility] Rx#: [id number] Oral 240 Output: Urine 800 Stool 200 220 Other: Voiding Method Diaper Diaper Bedside Commode External Catheter Incontinent Diaper External Catheter Incontinent # Voids 4 # Bowel Movements 4 1 ABP, PAP, CO, CI - Last Documented Arterial Blood Pressure 158/54 - Exam Abdomen: Soft, nondistended, incision clean and dry, ostomy function - Labs CBC & Chem 7: 06/28/21 07:23 06/28/21 07:23 Labs: Abnormal Lab Results - Last 24 Hours (Table) 06/27/21 06/27/21 06/27/21 Range/Units 06:21 12:31 12:55 WBC (3.8-10.6) k/uL RBC (3.80-5.40) m/uL Hgb (11.4-16.0) gm/dL Hct (34.0-46.0) % MCV (80.0-100.0) fL Neutrophils # (1.3-7.7) k/uL Sodium (137-145) mmol/L Chloride (98-107) mmol/L Carbon Dioxide 19.1 L (21.6-31.8) mmol/L Anion Gap 13.30 H (4.00-12.00) mmol/L BUN (7-17) mg/dL Creatinine 1.7 H (0.6-1.5) mg/dL Est GFR (CKD-EPI)AfAm 32.7 L (60.0-200.0) Est GFR (CKD-EPI)NonAf 28.2 L (60.0-200.0) BUN/Creatinine Ratio 10.76 L (12.00-20.00) Ratio Glucose (74-99) mg/dL POC Glucose (mg/dL) 131 H (75-99) mg/dL Calcium 7.8 L (8.7-10.3) mg/dL Urine Protein 1+ H (Negative) Urine Ketones Trace H (Negative) Urine Blood Moderate H (Negative) Ur Leukocyte Esterase Trace H (Negative) Urine RBC 24 H (0-5) /hpf Urine WBC 20 H (0-5) /hpf Urine Bacteria Rare H (None) /hpf 06/27/21 06/27/21 06/27/21 Range/Units 17:47 17:52 20:34 WBC 18.7 H (3.8-10.6) k/uL RBC 2.81 L (3.80-5.40) m/uL Hgb 8.9 L (11.4-16.0) gm/dL Hct 28.7 L (34.0-46.0) % MCV 102.2 H (80.0-100.0) fL Neutrophils # (1.3-7.7) k/uL Sodium (137-145) mmol/L Chloride (98-107) mmol/L Carbon Dioxide (21.6-31.8) mmol/L Anion Gap (4.00-12.00) mmol/L BUN (7-17) mg/dL Creatinine (0.6-1.5) mg/dL Est GFR (CKD-EPI)AfAm (60.0-200.0) Est GFR (CKD-EPI)NonAf (60.0-200.0) BUN/Creatinine Ratio (12.00-20.00) Ratio Glucose (74-99) mg/dL POC Glucose (mg/dL) 178 H 139 H (75-99) mg/dL Calcium (8.7-10.3) mg/dL Urine Protein (Negative) Urine Ketones (Negative) Urine Blood (Negative) Ur Leukocyte Esterase (Negative) Urine RBC (0-5) /hpf Urine WBC (0-5) /hpf Urine Bacteria (None) /hpf 06/28/21 06/28/21 06/28/21 Range/Units 06:50 07:23 07:23 WBC 16.1 H (3.8-10.6) k/uL RBC 2.51 L (3.80-5.40) m/uL Hgb 8.2 L (11.4-16.0) gm/dL Hct 26.5 L (34.0-46.0) % MCV 105.7 H (80.0-100.0) fL Neutrophils # 12.3 H (1.3-7.7) k/uL Sodium 134 L (137-145) mmol/L Chloride 110 H (98-107) mmol/L Carbon Dioxide 17 L (21.6-31.8) mmol/L Anion Gap (4.00-12.00) mmol/L BUN 18 H (7-17) mg/dL Creatinine 1.52 H (0.6-1.5) mg/dL Est GFR (CKD-EPI)AfAm (60.0-200.0) Est GFR (CKD-EPI)NonAf (60.0-200.0) BUN/Creatinine Ratio (12.00-20.00) Ratio Glucose 117 H (74-99) mg/dL POC Glucose (mg/dL) 127 H (75-99) mg/dL Calcium 8.1 L (8.7-10.3) mg/dL Urine Protein (Negative) Urine Ketones (Negative) Urine Blood (Negative) Ur Leukocyte Esterase (Negative) Urine RBC (0-5) /hpf Urine WBC (0-5) /hpf Urine Bacteria (None) /hpf Microbiology - Last 24 Hours (Table) 06/27/21 12:55 Urine Culture - Preliminary Urine,Voided Assessment and Plan (1) Pneumatosis intestinalis Narrative/Plan: Overall patient doing well. Continue diet as tolerated. Monitor leukocytosis. Possible transfer to rehab on Wednesday if doing well. Current Visit: Yes Status: Acute Code(s): K63.89 - OTHER SPECIFIED DISEASES OF INTESTINE SNOMED Code(s): 12207598
--- NOTE | 2021-06-28 13:37 | P.PN ---
Subjective Progress Note Date: 06/28/21 HISTORY OF PRESENT ILLNESS 80-year-old female one of Dr. Sanchez's patient with past medical history of CAD, hypertension, hyperlipidemia, recurrent urinary tract infection who presented to [facility] today after an episode of increase abdominal pain and distention specially in the right side with worsening nausea and vomiting with significant decrease in appetite has not had much to eat or drink. The time was seen to have significant leukocytosis with white blood cell 25,000 mild elevated lactic acid. CAT scan of the abdomen showed significant colonic distention with evidence of right-sided ischemic change with pneumatosis intestinalis. Patient started looking more toxic at this point. Patient was seen Dr. gipson and was taking from the emergency department to the OR for partial resection in the having exploratory laparotomy with right sided colectomy and end ileostomy with mucous fistula repair. Umbilical hernia. She was started on Zosyn, pain management, IV resuscitation along with DVT prophylaxis and admitted to the ICU after surgery. 06/21: Patient was hemodynamically not stable after her surgery was transferred to the ICU, patient surgery was consistent with dilated loop of bowel in the sigmoid with 3.5 cm lesion in the right ovary potential ovarian cancer her laparotomy with colectomy ileostomy and mucous fistula was done and patient is doing much better today except her potassium was quite bit high at 6.0 patient is making enough urine at this point with creatinine at 2.63, will continue hydration nephrology be consult at and treatment for hyperkalemia will be done. 06/22: Patient states 2 post exploratory surgery with colectomy, ileostomy in the right side fistula in the left side with repair of umbilical hernia. Patient is doing well her intake through the ostomy has been doing better, patient has not had much oral intake this point and still on Zosyn antibiotic-neely her microbiology came back as a gram-negative bacillary in the urine. Her creatinine is tiny bit down compared to yesterday patient is making good urine output this point. 06/23: Patient is seen today in the ICU, she has been downgraded and is waiting for [facility] bed. Patient is having good output from the ostomy, no significant rectal output. Patient is currently on clear liquid diet to be advanced to full liquid diet at lunch today. Beckett catheter has been removed and patient is waiting to void. Patient was seen yesterday by cardiology for A. fib with mild RVR with history of proximal A. fib. Patient was resumed on her metoprolol and patient most likely will start anticoagulation once cleared by general surgery. teletypesetter monitor sinus rhythm. Echocardiogram reveals EF of 55-60%, moderate mitral annular calcification, mild mitral regurgitation, moderate tricuspid regurgitation, severe pulmonary hypertension. Chest x-ray reveals cardiomegaly with patchy bibasilar acute infiltrate and/or atelectasis redemonstrated. Small to tiny left greater than right pleural effusions now present. Patient is reaching 750-1000 on incentive spirometry. Patient is afebrile, heart rate 66, blood pressure 148/84, pulse ox 98% on 2 L nasal cannula. WBC 12.1, hemoglobin 10.3, platelet count 245. Sodium 144, potassium 4.8, chloride 119, CO2 18, BUN 33 creatinine 1.96. Blood sugar 101. Calcium 7.7. Alkaline phosphatase 129. 06/24: Patient is seen today on the [facility] floor. She states that she got up in a chair for the first time yesterday but has not worked with physical therapy yet. She did have a midline placed yesterday. We are planning to continue IV fluids for today. Patient has been afebrile, heart rate 70, blood pressure 156/72, pulse ox 93% on room air. Repeat blood work reveals WBC 13.3, hemoglobin 11, platelet count 208. Creatinine 1.8. Blood sugars are running between 120-189. Urine culture is positive for E. coli multidrug resistant. Patient is currently on full liquid diet and tolerating. Patient has been started on eliquis by cardiology. 06/25: Blood pressure has been running high and patient will be started on Norvasc 5 mg daily and IV fluids discontinued. In her ostomy bag, stool is quite hard and scheduled Senokot added. She is complaining of some nausea for which Reglan will be added. Patient has been afebrile, heart rate 81, blood pressure 167/76, pulse ox 97% on room air. Capillary blood glucose running between 143 and 204. WBC 11.8, hemoglobin 10.9 and platelet count 266. teletypesetter monitor is sinus rhythm and telemetry will be discontinued. Anticipate possible discharge on . Discharge plan is to rehab and [id number] has been completed. 06/28: Patient is resting comfortably in bed in no acute distress. Patient has no complaints or concerns. Discharge plans in place questioning if patient needs IV antibiotics. Spoke with Dr. Clement who decided that she could be transitioned to oral antibiotics. Anticipate possible discharge on Wednesday. Discharge plan is to go to a subacute rehab. Stool present in her ostomy bag. Patient remains afebrile, heart rate 64, respirations 18, blood pressure 125/79, saturation 97% on room air REVIEW OF SYSTEMS Constitutional: No fever, no chills, no night sweats. No weight change. No weakness, fatigue or lethargy. No daytime sleepiness. Slightly confused does not look in any respiratory distress. EENT: No headache. No blurred vision or double vision, no loss of vision. No loss of Hearing, no ringing in the ears, no dizziness. No nasal drainage or congestion. No epistaxis. No sore throat. Lungs: No shortness of breath, cough, no sputum production. No wheezing. Cardiovascular: Mild PND and orthopnea and no chest pain slight edema of the lower extremity mild palpitation with exertion. Abdominal: I'll do abdominal discomfort, hard stool from ostomy, decreased appetite and nausea. Genitourinary: No dysuria, increased frequency, urgency. No urinary retention. Decrease urine output. Musculoskeletal: No myalgias. No muscle weakness, no gait dysfunction, no frequent falls. No back pain. No neck pain. Integumentary: No wounds, no lesions. No rash or pruritus. No unusual bruising. Neurologic: No motor deficit visualized weakness had slight change mental status. Psychiatric: No depression. No anxiety. No mood swings. Endocrine: No abnormal blood sugars. No weight change. PHYSICAL EXAMINATION Gen: This is an a 80-year-old female. Patient is resting in bed in the [facility] floor and appears to be comfortable. HEENT: Head is atraumatic, normocephalic. Pupils equal, round. Sclerae is anicteric. NECK: Supple. No JVD. No lymphadenopathy. No thyromegaly. LUNGS: Decreased breath some bilateral rhonchi and mild expiratory wheezes. HEART: Irregular rate and rhythm. Mild tachycardia. ABDOMEN: Surgical site excluded patient had to ostomy bag 1 to ileostomy is small hard stool chunks, another ostomy bag is over fistula drain with ser osanguineous mucus drainage. Ileostomy stoma is beefy red. No abdominal tenderness. Midline dressing intact. EXTREMITIES: No pedal edema. No calf tenderness. NEUROLOGICAL: Patient is awake, alert with slight confusion. Cranial nerves 2 through 12 are grossly intact. ASSESSMENT AND PLAN 1. Abdominal pain Most likely from ischemic colitis with slight early perforation, colon obstruction and pneumatosis right colon that is post exploratory laparotomy with right colectomy, end ileostomy, mucous fistula and repair of umbilical hernia on 06/[address] Bailey. Continue full liquid diet, continue Zosyn 3.375 g IV piggyback every 12 hours. 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 Incision looks fine. 3 bowel obstruction: Most likely caused by pneumatosis intestinalis along with ischemic colitis. 4. Paroxysmal atrial fibrillation. Cardiology consult appreciated. Continue Lopressor 50 mg twice daily, eliquis 2.5 mg twice daily. 5. Chronic diastolic heart failure. Continue metipranolol. 6. Acute kidney injury with chronic kidney disease stage III or 4. Avoid nephrotoxic agents, continue to monitor. Continue PhosLo 667 mg 3 times daily. Discontinue Motrin. Tylenol as needed for pain. 7. Acute blood loss anemia with hemoglobin dropped 3 g, expected with surgery. Continue to monitor, transfuse if hemoglobin less than 7. 8. Diabetes mellitus type 2. Patient will be started on NovoLog scale before meals and at bedtime. Patient is on Humalog 7525 12 units with breakfast and 15 units with supper currently on hold. 9. Peripheral diabetic neuropathy 7 chronic neuropathy: Has been on Lyrica 75 mg twice a day. 10. Hyperlipidemia. Patient will be resumed on pravastatin 40 mg daily. 11. Hypertension. Patient started on amlodipine 5 mg daily, continue Lopressor. 12. COPD without exacerbation. DuoNeb treatments as needed. 13. DVT prophylaxis. Patient is on eliquis CODE STATUS: Full code. DISCHARGE PLAN Subacute rehab at [facility] possibly Wednesday Impression and plan of care have been directed as dictated by the signing physician. Doris Casillas nurse practitioner acting as scribe for signing physician. Objective - Vital Signs Vital signs: Vital Signs Temp 98.2 F 06/28/21 11:27 Pulse 64 06/28/21 11:27 Resp 18 06/28/21 11:27 BP 125/79 06/28/21 11:27 Pulse Ox 97 06/28/21 11:27 Intake & Output 06/27/21 06/28/21 06/28/21 18:59 06:59 18:59 Intake Total 440 Output Total 1000 220 Balance -560 -220 Intake: Intake, IV Titration 200 Amount ACETAMINOPHEN IV (For NPO 100 ) 1,000 mg In Empty Bag 1 bag @ 400 mls/hr IVPB Q6HR [facility] Rx#:[id number] Piperacillin-Tazobactam 3 100 .375 gm In Sodium Chloride 0.9% 100 ml @ 25 mls/hr IVPB Q8H [facility] Rx#: [id number] Oral 240 Output: Urine 800 Stool 200 220 Other: Voiding Method Diaper Diaper Bedside Commode External Catheter Incontinent Diaper External Catheter Incontinent # Voids 4 # Bowel Movements 4 1 ABP, PAP, CO, CI - Last Documented Arterial Blood Pressure 158/54 - Labs CBC & Chem 7: 06/28/21 07:23 06/28/21 07:23 Labs: Abnormal Lab Results - Last 24 Hours (Table) 06/27/21 06/27/21 06/27/21 Range/Units 12:55 17:47 17:52 WBC 18.7 H (3.8-10.6) k/uL RBC 2.81 L (3.80-5.40) m/uL Hgb 8.9 L (11.4-16.0) gm/dL Hct 28.7 L (34.0-46.0) % MCV 102.2 H (80.0-100.0) fL Neutrophils # (1.3-7.7) k/uL Sodium (137-145) mmol/L Chloride (98-107) mmol/L Carbon Dioxide (22-30) mmol/L BUN (7-17) mg/dL Creatinine (0.52-1.04) mg/dL Glucose (74-99) mg/dL POC Glucose (mg/dL) 178 H (75-99) mg/dL Calcium (8.4-10.2) mg/dL Urine Protein 1+ H (Negative) Urine Ketones Trace H (Negative) Urine Blood Moderate H (Negative) Ur Leukocyte Esterase Trace H (Negative) Urine RBC 24 H (0-5) /hpf Urine WBC 20 H (0-5) /hpf Urine Bacteria Rare H (None) /hpf 06/27/21 06/28/21 06/28/21 Range/Units 20:34 06:50 07:23 WBC 16.1 H (3.8-10.6) k/uL RBC 2.51 L (3.80-5.40) m/uL Hgb 8.2 L (11.4-16.0) gm/dL Hct 26.5 L (34.0-46.0) % MCV 105.7 H (80.0-100.0) fL Neutrophils # 12.3 H (1.3-7.7) k/uL Sodium (137-145) mmol/L Chloride (98-107) mmol/L Carbon Dioxide (22-30) mmol/L BUN (7-17) mg/dL Creatinine (0.52-1.04) mg/dL Glucose (74-99) mg/dL POC Glucose (mg/dL) 139 H 127 H (75-99) mg/dL Calcium (8.4-10.2) mg/dL Urine Protein (Negative) Urine Ketones (Negative) Urine Blood (Negative) Ur Leukocyte Esterase (Negative) Urine RBC (0-5) /hpf Urine WBC (0-5) /hpf Urine Bacteria (None) /hpf 06/28/21 Range/Units 07:23 WBC (3.8-10.6) k/uL RBC (3.80-5.40) m/uL Hgb (11.4-16.0) gm/dL Hct (34.0-46.0) % MCV (80.0-100.0) fL Neutrophils # (1.3-7.7) k/uL Sodium 134 L (137-145) mmol/L Chloride 110 H (98-107) mmol/L Carbon Dioxide 17 L (22-30) mmol/L BUN 18 H (7-17) mg/dL Creatinine 1.52 H (0.52-1.04) mg/dL Glucose 117 H (74-99) mg/dL POC Glucose (mg/dL) (75-99) mg/dL Calcium 8.1 L (8.4-10.2) mg/dL Urine Protein (Negative) Urine Ketones (Negative) Urine Blood (Negative) Ur Leukocyte Esterase (Negative) Urine RBC (0-5) /hpf Urine WBC (0-5) /hpf Urine Bacteria (None) /hpf Microbiology - Last 24 Hours (Table) 06/27/21 12:55 Urine Culture - Preliminary Urine,Voided
[2021-06-28 14:20] LABS: Glucose,Whole Blood 167 mg/dL (75-99)
[2021-06-28 17:34] LABS: Glucose,Whole Blood 152 mg/dL (75-99)
[2021-06-28 20:33] LABS: Glucose,Whole Blood 195 mg/dL (75-99)
[2021-06-29] MEDS: PIPERACILLIN-TAZOBACTAM 3.375 GM in SODIUM CHLORIDE 0.9% 100 ML IVPB SCH ×3 (04:51→20:49)
[2021-06-29 06:20] LABS: Basophils % (A) 0 %; Eosinophils # (A) 0.4 k/uL (0-0.7); Eosinophils % (A) 3 %; HCT 26.2 % (34.0-46.0); HGB 8.7 gm/dL (11.4-16.0); Lymphocytes # (A) 2.4 k/uL (1.0-4.8); Lymphocytes % (A) 15 %; MCHC 33.1 g/dL (31.0-37.0); Mean Platelet Volume 8.5; Monocytes # (A) 0.8 k/uL (0-1.0); Monocytes % (A) 5 %; Neutrophils # (A) 12.4 k/uL (1.3-7.7); Neutrophils % (A) 76 %; Platelet Count 364 k/uL (150-450); RBC 2.62 m/uL (3.80-5.40); WBC 16.3 k/uL (3.8-10.6)
[2021-06-29 06:27] LABS: MCV 99.8 fL (80.0-100.0)
[2021-06-29 07:38] LABS: Glucose,Whole Blood 134 mg/dL (75-99)
[2021-06-29] MEDS: CALCIUM ACETATE 667 MG TAB PO SCH ×3 (08:18→20:49)
[2021-06-29] MEDS: METOPROLOL TARTRATE 50 MG TAB PO SCH ×2 (08:18→20:48)
[2021-06-29] MEDS: amLODIPine 5 MG TAB PO SCH (08:18)
[2021-06-29] MEDS: FLUoxetine HCL 20 MG CAP PO SCH (08:18)
[2021-06-29] MEDS: PRAVASTATIN SODIUM 40 MG TAB PO SCH (08:19)
[2021-06-29] MEDS: INSULIN ASPART (NovoLOG) 100 UNIT/ML VIAL SQ SCH ×4 (08:19→20:49)
[2021-06-29] MEDS: PANTOPRAZOLE 40 MG/10 ML VIAL IV SCH (08:19)
[2021-06-29 09:58] LABS: African American GFR (CKD) 35.2 (60.0-200.0); Anion Gap 11.1 mmol/L (4.00-12.00); Blood Urea Nitrogen 12.8 mg/dL (9.0-27.0); Calcium 7.9 mg/dL (8.7-10.3); Carbon Dioxide 19.9 mmol/L (21.6-31.8); Non-African American GFR(CKD) 30.3 (60.0-200.0); Potassium 3.8 mmol/L (3.5-5.5)
--- NOTE | 2021-06-29 12:01 | P.PN ---
Subjective Progress Note Date: 06/29/21 Principal diagnosis: Colon obstruction Patient has no complaints. Says she slept well. Denies abdominal pain. Tolerating diet. Ostomy functioning. No rectal bleeding. White blood cell count 16.3 Objective - Vital Signs Vital signs: Vital Signs Temp 97.5 F L 06/29/21 04:26 Pulse 64 06/29/21 08:22 Resp 18 06/29/21 04:26 BP 142/66 06/29/21 08:22 Pulse Ox 96 06/29/21 08:22 Intake & Output 06/28/21 06/29/21 06/29/21 18:59 06:59 18:59 Intake Total 100 400 Output Total 220 1000 Balance -120 -600 Intake: IV 200 0.9 200 Intake, IV Titration 100 200 Amount Piperacillin-Tazobactam 3 100 200 .375 gm In Sodium Chloride 0.9% 100 ml @ 25 mls/hr IVPB Q8H [facility] Rx#: [id number] Output: Stool 220 1000 Other: Voiding Method Bedside Commode Bedside Commode Diaper Diaper Incontinent Incontinent ABP, PAP, CO, CI - Last Documented Arterial Blood Pressure 158/54 - Exam Abdomen: Soft, nondistended, incision clean and dry, ostomy functioning - Labs CBC & Chem 7: 06/29/21 05:23 06/29/21 05:23 Labs: Abnormal Lab Results - Last 24 Hours (Table) 06/28/21 06/28/21 06/28/21 Range/Units 14:18 17:32 20:31 WBC (3.8-10.6) k/uL RBC (3.80-5.40) m/uL Hgb (11.4-16.0) gm/dL Hct (34.0-46.0) % Neutrophils # (1.3-7.7) k/uL Carbon Dioxide (21.6-31.8) mmol/L Creatinine (0.6-1.5) mg/dL Est GFR (CKD-EPI)AfAm (60.0-200.0) Est GFR (CKD-EPI)NonAf (60.0-200.0) BUN/Creatinine Ratio (12.00-20.00) Ratio Glucose (70-110) mg/dL POC Glucose (mg/dL) 167 H 152 H 195 H (75-99) mg/dL Calcium (8.7-10.3) mg/dL 06/29/21 06/29/21 06/29/21 Range/Units 05:23 05:23 07:36 WBC 16.3 H (3.8-10.6) k/uL RBC 2.62 L (3.80-5.40) m/uL Hgb 8.7 L (11.4-16.0) gm/dL Hct 26.2 L (34.0-46.0) % Neutrophils # 12.4 H (1.3-7.7) k/uL Carbon Dioxide 19.9 L (21.6-31.8) mmol/L Creatinine 1.6 H (0.6-1.5) mg/dL Est GFR (CKD-EPI)AfAm 35.2 L (60.0-200.0) Est GFR (CKD-EPI)NonAf 30.3 L (60.0-200.0) BUN/Creatinine Ratio 8.00 L (12.00-20.00) Ratio Glucose 129 H (70-110) mg/dL POC Glucose (mg/dL) 134 H (75-99) mg/dL Calcium 7.9 L (8.7-10.3) mg/dL Microbiology - Last 24 Hours (Table) 06/27/21 12:55 Urine Culture - Final Urine,Voided Assessment and Plan (1) Pneumatosis intestinalis Narrative/Plan: Patient doing well at this time. Continue diet as tolerated. Recheck labs tomorrow. Hopefully transfer to rehab tomorrow. Current Visit: Yes Status: Acute Code(s): K63.89 - OTHER SPECIFIED DISEASES OF INTESTINE SNOMED Code(s): 11037593
--- NOTE | 2021-06-29 12:06 | P.PN ---
Subjective Progress Note Date: 06/29/21 HISTORY OF PRESENT ILLNESS 80-year-old female one of Dr. Sanchez's patient with past medical history of CAD, hypertension, hyperlipidemia, recurrent urinary tract infection who presented to [facility] today after an episode of increase abdominal pain and distention specially in the right side with worsening nausea and vomiting with significant decrease in appetite has not had much to eat or drink. The time was seen to have significant leukocytosis with white blood cell 25,000 mild elevated lactic acid. CAT scan of the abdomen showed significant colonic distention with evidence of right-sided ischemic change with pneumatosis intestinalis. Patient started looking more toxic at this point. Patient was seen Dr. gipson and was taking from the emergency department to the OR for partial resection in the having exploratory laparotomy with right sided colectomy and end ileostomy with mucous fistula repair. Umbilical hernia. She was started on Zosyn, pain management, IV resuscitation along with DVT prophylaxis and admitted to the ICU after surgery. 06/21: Patient was hemodynamically not stable after her surgery was transferred to the ICU, patient surgery was consistent with dilated loop of bowel in the sigmoid with 3.5 cm lesion in the right ovary potential ovarian cancer her laparotomy with colectomy ileostomy and mucous fistula was done and patient is doing much better today except her potassium was quite bit high at 6.0 patient is making enough urine at this point with creatinine at 2.63, will continue hydration nephrology be consult at and treatment for hyperkalemia will be done. 06/22: Patient states 2 post exploratory surgery with colectomy, ileostomy in the right side fistula in the left side with repair of umbilical hernia. Patient is doing well her intake through the ostomy has been doing better, patient has not had much oral intake this point and still on Zosyn antibiotic-neely her microbiology came back as a gram-negative bacillary in the urine. Her creatinine is tiny bit down compared to yesterday patient is making good urine output this point. 06/23: Patient is seen today in the ICU, she has been downgraded and is waiting for [facility] bed. Patient is having good output from the ostomy, no significant rectal output. Patient is currently on clear liquid diet to be advanced to full liquid diet at lunch today. Beckett catheter has been removed and patient is waiting to void. Patient was seen yesterday by cardiology for A. fib with mild RVR with history of proximal A. fib. Patient was resumed on her metoprolol and patient most likely will start anticoagulation once cleared by general surgery. radiation monitor sinus rhythm. Echocardiogram reveals EF of 55-60%, moderate mitral annular calcification, mild mitral regurgitation, moderate tricuspid regurgitation, severe pulmonary hypertension. Chest x-ray reveals cardiomegaly with patchy bibasilar acute infiltrate and/or atelectasis redemonstrated. Small to tiny left greater than right pleural effusions now present. Patient is reaching 750-1000 on incentive spirometry. Patient is afebrile, heart rate 66, blood pressure 148/84, pulse ox 98% on 2 L nasal cannula. WBC 12.1, hemoglobin 10.3, platelet count 245. Sodium 144, potassium 4.8, chloride 119, CO2 18, BUN 33 creatinine 1.96. Blood sugar 101. Calcium 7.7. Alkaline phosphatase 129. 06/24: Patient is seen today on the [facility] floor. She states that she got up in a chair for the first time yesterday but has not worked with physical therapy yet. She did have a midline placed yesterday. We are planning to continue IV fluids for today. Patient has been afebrile, heart rate 70, blood pressure 156/72, pulse ox 93% on room air. Repeat blood work reveals WBC 13.3, hemoglobin 11, platelet count 208. Creatinine 1.8. Blood sugars are running between 120-189. Urine culture is positive for E. coli multidrug resistant. Patient is currently on full liquid diet and tolerating. Patient has been started on eliquis by cardiology. 06/25: Blood pressure has been running high and patient will be started on Norvasc 5 mg daily and IV fluids discontinued. In her ostomy bag, stool is quite hard and scheduled Senokot added. She is complaining of some nausea for which Reglan will be added. Patient has been afebrile, heart rate 81, blood pressure 167/76, pulse ox 97% on room air. Capillary blood glucose running between 143 and 204. WBC 11.8, hemoglobin 10.9 and platelet count 266. radiation monitor is sinus rhythm and telemetry will be discontinued. Anticipate possible discharge on . Discharge plan is to rehab and [id number] has been completed. 06/28: Patient is resting comfortably in bed in no acute distress. Patient has no complaints or concerns. Discharge plans in place questioning if patient needs IV antibiotics. Spoke with Dr. Bailey who decided that she could be transitioned to oral antibiotics. Anticipate possible discharge on Wednesday. Discharge plan is to go to a subacute rehab. Stool present in her ostomy bag. Patient remains afebrile, heart rate 64, respirations 18, blood pressure 125/79, saturation 97% on room air 06/29: Patient is found resting comfortably in no acute distress. Patient is no complaints or concerns. Discussed with The patient more than likely will not need antibiotics. Discussed the plan to discharge on Wednesday to [facility]. Patient is still present. Patient remains afebrile, heart rate 64, blood pressure 142/66, respirations 18, Pulse ox 97% REVIEW OF SYSTEMS Constitutional: No fever, no chills, no night sweats. No weight change. No weakness, fatigue or lethargy. No daytime sleepiness. Slightly confused does not look in any respiratory distress. EENT: No headache. No blurred vision or double vision, no loss of vision. No loss of Hearing, no ringing in the ears, no dizziness. No nasal drainage or congestion. No epistaxis. No sore throat. Lungs: No shortness of breath, cough, no sputum production. No wheezing. Cardiovascular: Mild PND and orthopnea and no chest pain slight edema of the low er extremity mild palpitation with exertion. Abdominal: I'll do abdominal discomfort, hard stool from ostomy, decreased appetite and nausea. Genitourinary: No dysuria, increased frequency, urgency. No urinary retention. Decrease urine output. Musculoskeletal: No myalgias. No muscle weakness, no gait dysfunction, no frequent falls. No back pain. No neck pain. Integumentary: No wounds, no lesions. No rash or pruritus. No unusual bruising. Neurologic: No motor deficit visualized weakness had slight change mental status. Psychiatric: No depression. No anxiety. No mood swings. Endocrine: No abnormal blood sugars. No weight change. PHYSICAL EXAMINATION Gen: This is an a 80-year-old female. Patient is resting in bed in the [facility] floor and appears to be comfortable. HEENT: Head is atraumatic, normocephalic. Pupils equal, round. Sclerae is anicteric. NECK: Supple. No JVD. No lymphadenopathy. No thyromegaly. LUNGS: Decreased breath some bilateral rhonchi and mild expiratory wheezes. HEART: Irregular rate and rhythm. Mild tachycardia. ABDOMEN: Surgical site excluded patient had to ostomy bag 1 to ileostomy is small hard stool chunks, another ostomy bag is over fistula drain with serosanguineous mucus drainage. Ileostomy stoma is beefy red. No abdominal tenderness. Midline dressing intact. EXTREMITIES: No pedal edema. No calf tenderness. NEUROLOGICAL: Patient is awake, alert with slight confusion. Cranial nerves 2 through 12 are grossly intact. ASSESSMENT AND PLAN 1. Abdominal pain Most likely from ischemic colitis with slight early perforation, colon obstruction and pneumatosis right colon that is post exploratory laparotomy with right colectomy, end ileostomy, mucous fistula and repair of umbilical hernia on 06/[address] Bailey. Continue full liquid diet, continue Zosyn 3.375 g IV piggyback every 12 hours. 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 Incision looks fine. 3 bowel obstruction: Most likely caused by pneumatosis intestinalis along with ischemic colitis. 4. Paroxysmal atrial fibrillation. Cardiology consult appreciated. Continue Lopressor 50 mg twice daily, eliquis 2.5 mg twice daily. 5. Chronic diastolic heart failure. Continue metipranolol. 6. Acute kidney injury with chronic kidney disease stage III or 4. Avoid nephr otoxic agents, continue to monitor. Continue PhosLo 667 mg 3 times daily. Discontinue Motrin. Tylenol as needed for pain. 7. Acute blood loss anemia with hemoglobin dropped 3 g, expected with surgery. Continue to monitor, transfuse if hemoglobin less than 7. 8. Diabetes mellitus type 2. Patient will be started on NovoLog scale before meals and at bedtime. Patient is on Humalog 7525 12 units with breakfast and 15 units with supper currently on hold. 9. Peripheral diabetic neuropathy 7 chronic neuropathy: Has been on Lyrica 75 mg twice a day. 10. Hyperlipidemia. Patient will be resumed on pravastatin 40 mg daily. 11. Hypertension. Patient started on amlodipine 5 mg daily, continue Lopressor. 12. COPD without exacerbation. DuoNeb treatments as needed. 13. DVT prophylaxis. Patient is on eliquis CODE STATUS: Full code. DISCHARGE PLAN Subacute rehab at [facility] possibly Wednesday Impression and plan of care have been directed as dictated by the signing physician. Doris Casillas nurse practitioner acting as scribe for signing physician. Objective - Vital Signs Vital signs: Vital Signs Temp 97.5 F L 06/29/21 04:26 Pulse 64 06/29/21 08:22 Resp 18 06/29/21 04:26 BP 142/66 06/29/21 08:22 Pulse Ox 96 06/29/21 08:22 Intake & Output 06/28/21 06/29/21 06/29/21 18:59 06:59 18:59 Intake Total 100 400 Output Total 220 1000 Balance -120 -600 Intake: IV 200 0.9 200 Intake, IV Titration 100 200 Amount Piperacillin-Tazobactam 3 100 200 .375 gm In Sodium Chloride 0.9% 100 ml @ 25 mls/hr IVPB Q8H [facility] Rx#: [id number] Output: Stool 220 1000 Other: Voiding Method Bedside Commode Bedside Commode Diaper Diaper Incontinent Incontinent ABP, PAP, CO, CI - Last Documented Arterial Blood Pressure 158/54 - Labs CBC & Chem 7: 06/29/21 05:23 06/29/21 05:23 Labs: Abnormal Lab Results - Last 24 Hours (Table) 06/28/21 06/28/21 06/28/21 Range/Units 14:18 17:32 20:31 WBC (3.8-10.6) k/uL RBC (3.80-5.40) m/uL Hgb (11.4-16.0) gm/dL Hct (34.0-46.0) % Neutrophils # (1.3-7.7) k/uL Carbon Dioxide (21.6-31.8) mmol/L Creatinine (0.6-1.5) mg/dL Est GFR (CKD-EPI)AfAm (60.0-200.0) Est GFR (CKD-EPI)NonAf (60.0-200.0) BUN/Creatinine Ratio (12.00-20.00) Ratio Glucose (70-110) mg/dL POC Glucose (mg/dL) 167 H 152 H 195 H (75-99) mg/dL Calcium (8.7-10.3) mg/dL 06/29/21 06/29/21 06/29/21 Range/Units 05:23 05:23 07:36 WBC 16.3 H (3.8-10.6) k/uL RBC 2.62 L (3.80-5.40) m/uL Hgb 8.7 L (11.4-16.0) gm/dL Hct 26.2 L (34.0-46.0) % Neutrophils # 12.4 H (1.3-7.7) k/uL Carbon Dioxide 19.9 L (21.6-31.8) mmol/L Creatinine 1.6 H (0.6-1.5) mg/dL Est GFR (CKD-EPI)AfAm 35.2 L (60.0-200.0) Est GFR (CKD-EPI)NonAf 30.3 L (60.0-200.0) BUN/Creatinine Ratio 8.00 L (12.00-20.00) Ratio Glucose 129 H (70-110) mg/dL POC Glucose (mg/dL) 134 H (75-99) mg/dL Calcium 7.9 L (8.7-10.3) mg/dL Microbiology - Last 24 Hours (Table) 06/27/21 12:55 Urine Culture - Final Urine,Voided
[2021-06-29 13:11] LABS: Glucose,Whole Blood 130 mg/dL (75-99)
[2021-06-29 17:05] LABS: Glucose,Whole Blood 211 mg/dL (75-99)
[2021-06-29 20:08] LABS: Glucose,Whole Blood 175 mg/dL (75-99)
[2021-06-30] MEDS: PIPERACILLIN-TAZOBACTAM 3.375 GM in SODIUM CHLORIDE 0.9% 100 ML IVPB SCH ×2 (04:48→13:13)
[2021-06-30 07:15] LABS: Glucose,Whole Blood 127 mg/dL (75-99)
[2021-06-30] MEDS: INSULIN ASPART (NovoLOG) 100 UNIT/ML VIAL SQ SCH ×2 (07:57→13:03)
[2021-06-30] MEDS: METOPROLOL TARTRATE 50 MG TAB PO SCH (08:15)
[2021-06-30] MEDS: FLUoxetine HCL 20 MG CAP PO SCH (08:15)
[2021-06-30] MEDS: CALCIUM ACETATE 667 MG TAB PO SCH (08:15)
[2021-06-30] MEDS: amLODIPine 5 MG TAB PO SCH (08:16)
[2021-06-30] MEDS: PANTOPRAZOLE 40 MG/10 ML VIAL IV SCH (08:16)
--- NOTE | 2021-06-30 09:14 | P.PN ---
Subjective Progress Note Date: 06/30/21 HISTORY OF PRESENT ILLNESS 80-year-old female one of Dr. Sanchez's patient with past medical history of CAD, hypertension, hyperlipidemia, recurrent urinary tract infection who presented to [facility] today after an episode of increase abdominal pain and distention specially in the right side with worsening nausea and vomiting with significant decrease in appetite has not had much to eat or drink. The time was seen to have significant leukocytosis with white blood cell 25,000 mild elevated lactic acid. CAT scan of the abdomen showed significant colonic distention with evidence of right-sided ischemic change with pneumatosis intestinalis. Patient started looking more toxic at this point. Patient was seen Dr. gipson and was taking from the emergency department to the OR for partial resection in the having exploratory laparotomy with right sided colectomy and end ileostomy with mucous fistula repair. Umbilical hernia. She was started on Zosyn, pain management, IV resuscitation along with DVT prophylaxis and admitted to the ICU after surgery. 06/21: Patient was hemodynamically not stable after her surgery was transferred to the ICU, patient surgery was consistent with dilated loop of bowel in the sigmoid with 3.5 cm lesion in the right ovary potential ovarian cancer her laparotomy with colectomy ileostomy and mucous fistula was done and patient is doing much better today except her potassium was quite bit high at 6.0 patient is making enough urine at this point with creatinine at 2.63, will continue hydration nephrology be consult at and treatment for hyperkalemia will be done. 06/22: Patient states 2 post exploratory surgery with colectomy, ileostomy in the right side fistula in the left side with repair of umbilical hernia. Patient is doing well her intake through the ostomy has been doing better, patient has not had much oral intake this point and still on Zosyn antibiotic-neely her microbiology came back as a gram-negative bacillary in the urine. Her creatinine is tiny bit down compared to yesterday patient is making good urine output this point. 06/23: Patient is seen today in the ICU, she has been downgraded and is waiting for [facility] bed. Patient is having good output from the ostomy, no significant rectal output. Patient is currently on clear liquid diet to be advanced to full liquid diet at lunch today. Beckett catheter has been removed and patient is waiting to void. Patient was seen yesterday by cardiology for A. fib with mild RVR with history of proximal A. fib. Patient was resumed on her metoprolol and patient most likely will start anticoagulation once cleared by general surgery. head neck surgeon sinus rhythm. Echocardiogram reveals EF of 55-60%, moderate mitral annular calcification, mild mitral regurgitation, moderate tricuspid regurgitation, severe pulmonary hypertension. Chest x-ray reveals cardiomegaly with patchy bibasilar acute infiltrate and/or atelectasis redemonstrated. Small to tiny left greater than right pleural effusions now present. Patient is reaching 750-1000 on incentive spirometry. Patient is afebrile, heart rate 66, blood pressure 148/84, pulse ox 98% on 2 L nasal cannula. WBC 12.1, hemoglobin 10.3, platelet count 245. Sodium 144, potassium 4.8, chloride 119, CO2 18, BUN 33 creatinine 1.96. Blood sugar 101. Calcium 7.7. Alkaline phosphatase 129. 06/24: Patient is seen today on the [facility] floor. She states that she got up in a chair for the first time yesterday but has not worked with physical therapy yet. She did have a midline placed yesterday. We are planning to continue IV fluids for today. Patient has been afebrile, heart rate 70, blood pressure 156/72, pulse ox 93% on room air. Repeat blood work reveals WBC 13.3, hemoglobin 11, platelet count 208. Creatinine 1.8. Blood sugars are running between 120-189. Urine culture is positive for E. coli multidrug resistant. Patient is currently on full liquid diet and tolerating. Patient has been start ed on eliquis by cardiology. 06/25: Blood pressure has been running high and patient will be started on Norvasc 5 mg daily and IV fluids discontinued. In her ostomy bag, stool is quite hard and scheduled Senokot added. She is complaining of some nausea for which Reglan will be added. Patient has been afebrile, heart rate 81, blood pressure 167/76, pulse ox 97% on room air. Capillary blood glucose running between 143 and 204. WBC 11.8, hemoglobin 10.9 and platelet count 266. head neck surgeon is sinus rhythm and telemetry will be discontinued. Anticipate possible discharge on . Discharge plan is to rehab and 3378 has been completed. 06/28: Patient is resting comfortably in bed in no acute distress. Patient has no complaints or concerns. Discharge plans in place questioning if patient needs IV antibiotics. Spoke with Dr. Bailey who decided that she could be transitioned to oral antibiotics. Anticipate possible discharge on Wednesday. Discharge plan is to go to a subacute rehab. Stool present in her ostomy bag. Patient remains afebrile, heart rate 64, respirations 18, blood pressure 125/79, saturation 97% on room air 06/29: Patient is found resting comfortably in no acute distress. Patient is no complaints or concerns. Discussed with The patient more than likely will not need antibiotics. Discussed the plan to discharge on Wednesday to [facility]. Patient is still present. Patient remains afebrile, heart rate 64, blood pressure 142/66, respirations 18, Pulse ox 97% 06/30: Patient is having ostomy device changed. She is denying any new complaints. No significant abdominal pain, nausea or vomiting. She is tolerating diet. Her discharge plan is for subacute rehab at [facility]. Medication reconciliation has been reviewed and anticipate of discharge today. REVIEW OF SYSTEMS Constitutional: No fever, no chills, no night sweats. No weight change. No weakness, fatigue or lethargy. No daytime sleepiness. Slightly confused does not look in any respiratory distress. EENT: No headache. No blurred vision or double vision, no loss of vision. No loss of Hearing, no ringing in the ears, no dizziness. No nasal drainage or c ongestion. No epistaxis. No sore throat. Lungs: No shortness of breath, cough, no sputum production. No wheezing. Cardiovascular: Mild PND and orthopnea and no chest pain slight edema of the lower extremity mild palpitation with exertion. Abdominal: I'll do abdominal discomfort, hard stool from ostomy, decreased appetite and nausea. Genitourinary: No dysuria, increased frequency, urgency. No urinary retention. Musculoskeletal: No myalgias. No muscle weakness, no gait dysfunction, no f requent falls. No back pain. No neck pain. Integumentary: No wounds, no lesions. No rash or pruritus. No unusual bruising. Neurologic: No motor deficit visualized weakness had slight change mental status. Psychiatric: No depression. No anxiety. No mood swings. Endocrine: No abnormal blood sugars. No weight change. PHYSICAL EXAMINATION Gen: This is an a 80-year-old female. Patient is resting in bed in the [facility] floor and appears to be comfortable. HEENT: Head is atraumatic, normocephalic. Pupils equal, round. Sclerae is anicteric. NECK: Supple. No JVD. No lymphadenopathy. No thyromegaly. LUNGS: Decreased breath some bilateral rhonchi and mild expiratory wheezes. HEART: Irregular rate and rhythm. . ABDOMEN: Surgical site excluded patient had to ostomy bag 1 to ileostomy is small hard stool chunks, another ostomy bag is over fistula drain with serosanguineous mucus drainage. Ileostomy stoma is beefy red. No abdominal tenderness. Midline dressing intact. EXTREMITIES: No pedal edema. No calf tenderness. NEUROLOGICAL: Patient is awake, alert with slight confusion. Cranial nerves 2 through 12 are grossly intact. ASSESSMENT AND PLAN 1. Abdominal pain Most likely from ischemic colitis with slight early perforation, colon obstruction and pneumatosis right colon that is post exploratory laparotomy with right colectomy, end ileostomy, mucous fistula and repair of umbilical hernia on 06/[address] Bailey. Continue full liquid diet, continue Zosyn 3.375 g IV piggyback every 12 hours. 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 Incision looks fine. 3 bowel obstruction: Most likely caused by pneumatosis intestinalis along with ischemic colitis. 4. Paroxysmal atrial fibrillation. Cardiology consult appreciated. Continue Lopressor 50 mg twice daily, eliquis 2.5 mg twice daily. 5. Chronic diastolic heart failure. Continue metipranolol. 6. Acute kidney injury with chronic kidney disease stage III or 4. Avoid nephrotoxic agents, continue to monitor. Continue PhosLo 667 mg 3 times daily. Discontinue Motrin. Tylenol as needed for pain. 7. Acute blood loss anemia with hemoglobin dropped 3 g, expected with surgery. Continue to monitor, transfuse if hemoglobin less than 7. 8. Diabetes mellitus type 2. Patient will be started on NovoLog scale before meals and at bedtime. Patient is on Humalog 7525 12 units with breakfast and 15 units with supper currently on hold. 9. Peripheral diabetic neuropathy 7 chronic neuropathy: Has been on Lyrica 75 mg twice a day. 10. Hyperlipidemia. Patient will be resumed on pravastatin 40 mg daily. 11. Hypertension. Patient started on amlodipine 5 mg daily, continue Lopressor. 12. COPD without exacerbation. DuoNeb treatments as needed. 13. DVT prophylaxis. Patient is on eliquis CODE STATUS: Full code. DISCHARGE PLAN Subacute rehab at [facility] Impression and plan of care have been directed as dictated by the signing physician. Thais Scott nurse practitioner acting as scribe for signing physician. Objective - Vital Signs Vital signs: Vital Signs Temp 97.9 F 06/30/21 05:00 Pulse 68 06/30/21 07:59 Resp 16 06/30/21 07:59 BP 163/76 06/30/21 07:59 Pulse Ox 97 06/30/21 07:59 Intake & Output 06/29/21 06/30/21 06/30/21 18:59 06:59 18:59 Intake Total 100 Output Total 650 300 Balance -550 -300 Weight 81 kg Intake: Intake, IV Titration 100 Amount Piperacillin-Tazobactam 3 100 .375 gm In Sodium Chloride 0.9% 100 ml @ 25 mls/hr IVPB Q8H [facility] Rx#: [id number] Output: Stool 650 300 Other: Voiding Method Bedside Commode Bedside Commode Diaper Diaper Incontinent Incontinent # Voids 2 ABP, PAP, CO, CI - Last Documented Arterial Blood Pressure 158/54 - Labs CBC & Chem 7: 06/30/21 08:55 06/30/21 08:55 Labs: Abnormal Lab Results - Last 24 Hours (Table) 06/29/21 06/29/21 06/29/21 Range/Units 05:23 13:08 17:02 Carbon Dioxide 19.9 L (21.6-31.8) mmol/L Creatinine 1.6 H (0.6-1.5) mg/dL Est GFR (CKD-EPI)AfAm 35.2 L (60.0-200.0) Est GFR (CKD-EPI)NonAf 30.3 L (60.0-200.0) BUN/Creatinine Ratio 8.00 L (12.00-20.00) Ratio Glucose 129 H (70-110) mg/dL POC Glucose (mg/dL) 130 H 211 H (75-99) mg/dL Calcium 7.9 L (8.7-10.3) mg/dL 06/29/21 06/30/21 Range/Units 20:06 07:14 Carbon Dioxide (21.6-31.8) mmol/L Creatinine (0.6-1.5) mg/dL Est GFR (CKD-EPI)AfAm (60.0-200.0) Est GFR (CKD-EPI)NonAf (60.0-200.0) BUN/Creatinine Ratio (12.00-20.00) Ratio Glucose (70-110) mg/dL POC Glucose (mg/dL) 175 H 127 H (75-99) mg/dL Calcium (8.7-10.3) mg/dL
[2021-06-30 09:24] LABS: Basophils # (A) 0.1 k/uL (0-0.2); Basophils % (A) 0 %; Eosinophils # (A) 0.3 k/uL (0-0.7); Eosinophils % (A) 2 %; HCT 27.6 % (34.0-46.0); HGB 8.7 gm/dL (11.4-16.0); Hypochromasia Slight; Lymphocytes # (A) 2.6 k/uL (1.0-4.8); Lymphocytes % (A) 17 %; MCH 32.1 pg (25.0-35.0); MCHC 31.4 g/dL (31.0-37.0); MCV 102.3 fL (80.0-100.0); Macrocytosis Slight; Mean Platelet Volume 8.5; Monocytes # (A) 0.6 k/uL (0-1.0); Monocytes % (A) 4 %; Neutrophils # (A) 11.5 k/uL (1.3-7.7); Neutrophils % (A) 75 %; Platelet Count 389 k/uL (150-450); RBC 2.69 m/uL (3.80-5.40); RDW 14.1 % (11.5-15.5); WBC 15.3 k/uL (3.8-10.6)
[2021-06-30 09:33] LABS: African American GFR (CKD) 43 (>60 ml/min/1.73 sqM); Anion Gap 7 mmol/L; Blood Urea Nitrogen 12 mg/dL (7-17); Calcium 8.5 mg/dL (8.4-10.2); Carbon Dioxide 20 mmol/L (22-30); Chloride 108 mmol/L (98-107); Glucose 151 mg/dL (74-99); Non-African American GFR(CKD) 38 (>60 ml/min/1.73 sqM); Potassium 3.9 mmol/L (3.5-5.1); Sodium 135 mmol/L (137-145)
[2021-06-30] MEDS: PRAVASTATIN SODIUM 40 MG TAB PO SCH (10:55)
[2021-06-30] MEDS: traMADol 50 MG TAB PO PRN (10:55)
[2021-06-30 12:33] LABS: Glucose,Whole Blood 177 mg/dL (75-99)
[2021-06-30 12:57] VITALS: BP 134/51; PULSE 56; RESP 17; TEMP 98
--- NOTE | 2021-06-30 13:16 | P.DS ---
<YsabelkofiMarisa - Last Filed: 06/30/21 13:11> Providers Expected date of discharge: 06/30/21 Hospital Course: Discharge diagnosis 1. Colon obstruction with pneumatosis right colon, umbilical hernia status post Exploratory laparotomy with right colectomy, end ileostomy, mucous fistula, repair umbilical hernia. Hospital course This is a 80-year-old female comes in the hospital with complaints of right- sided abdominal pain. Pain increasing over the last week or so. She has had episodes of vomiting. Appetite is diminished. Pain aggravated by eating. Patient has not had a colonoscopy. Since she had a bowel movement today. Some decrease overall and amount of bowel function however. Was found to have significant leukocytosis on arrival with a 25,000 white count. Lactic acid is elevated. CAT scan was obtained and reviewed. CAT scan shows significant colonic distention with evidence of right sided ischemic changes and pneumatosis intestinalis. Transition point seems to be in the sigmoid colon. No definite mass lesion there. Patient is status post Exploratory laparotomy with right colectomy, end ileostomy, mucous fistula, repair umbilical hernia. Patient tolerated surgery well. She is tolerating diet. Her ostomy is functioning. She is still having some stool per rectum as well. Blood that had been present per rectum has resolved. She is afebrile. She has been up and ambulating. She has worked with physical therapy and they have recommended rehab. Patient still has some evidence of leukocytosis and will be discharged with antibiotics. Patient is stable for discharge. Please refer to chart for any further details. Physician [facility] note has been reviewed by physician. Signing provider agrees with the documented findings, assessment, and plan of care. Patient Condition at Discharge: Stable Plan - Discharge Summary Discharge Rx Participant: Yes New Discharge Prescriptions: New amLODIPine [Norvasc] 10 mg PO DAILY tab INSULIN ASPART (NovoLOG) [NovoLOG (formulary)] 0 unit SQ ACHS ml traMADol HCL [Ultram] 50 mg PO Q6HR PRN 2 Days #8 tab PRN Reason: Pain Apixaban [Eliquis] 2.5 mg PO BID 30 Days #60 tab Amoxic-Pot Clav 875-125Mg [Augmentin 875-125] 1 tab PO Q12HR 7 Days #14 tab Continue FLUoxetine HCL [PROzac] 40 mg PO DAILY Metoprolol Tartrate [Lopressor] 50 mg PO BID-W/MEALS Calcium Acetate [PhosLo] 667 mg PO TID Pravastatin Sodium [Pravachol] 40 mg PO DAILY Acetaminophen [Tylenol Extra Strength] 1,000 mg PO BID Vit Low Iron Tab 1 tab PO DAILY Changed Oxybutynin Chloride [Ditropan] 5 mg PO BID #0 Discontinued Furosemide [Lasix] 20 mg PO DAILY Insulin Lispro Protamin/Lispro [humaLOG Mix 75-25 Kwikpen] 15 unit SQ AC- SUPPER Oxybutynin Chloride [Ditropan] 10 mg PO HS Losartan Potassium 50 mg PO DAILY Insulin Lispro Protamin/Lispro [humaLOG Mix 75-25 Kwikpen] 12 unit SQ AC- BRKFST Discharge Medication List FLUoxetine HCL [PROzac] 40 mg PO DAILY 10/18/18 [History] Metoprolol Tartrate [Lopressor] 50 mg PO BID-W/MEALS 10/18/18 [History] Acetaminophen [Tylenol Extra Strength] 1,000 mg PO BID 06/20/21 [History] Calcium Acetate [PhosLo] 667 mg PO TID 06/20/21 [History] Pravastatin Sodium [Pravachol] 40 mg PO DAILY 06/20/21 [History] Vit Low Iron Tab 1 tab PO DAILY 06/20/21 [History] Apixaban [Eliquis] 2.5 mg PO BID 30 Days #60 tab 06/24/21 [Rx] Amoxic-Pot Clav 875-125Mg [Augmentin 875-125] 1 tab PO Q12HR 7 Days #14 tab 06/30/21 [Rx] INSULIN ASPART (NovoLOG) [NovoLOG (formulary)] 0 unit SQ ACHS ml 06/30/21 [Rx] Oxybutynin Chloride [Ditropan] 5 mg PO BID #0 06/30/21 [Rx] amLODIPine [Norvasc] 10 mg PO DAILY tab 06/30/21 [Rx] traMADol HCL [Ultram] 50 mg PO Q6HR PRN 2 Days #8 tab 06/30/21 [Rx] Follow up Appointment(s)/Referral(s): Arash Bailey MD [Medical Doctor] - 1 Week Eugenia Sanchez MD [Primary Care Provider] - 1-2 days Jose Alicea DO [STAFF PHYSICIAN] - 1 Week Patient Instructions/Handouts: Apixaban (By mouth), Colostomy Care (DC) Activity/Diet/Wound Care/Special Instructions: Ileostomy & Mucous fistula Care recommendations for transition to Rehab: Pt will have the following supplies for transition to Rehab facility from [facility] as follows: Ileostomy Care: Convatec moldable flange #[id number] (3) Convatec pouching system with filter #[id number] (3) No sting prep (10) Ostomy powder (1) Mucous fistula: Convatec one piece #[id number] cut to fit (3) No sting prep (10) Change all pouching systems every 3-5 days Empty when half full Down the line the mucous fistula may need a dry dressing vs a pouch No lifting over 10 pounds You may shower. No soaking or tub baths for 2 weeks Very light activity until you are reevaluated at your follow up appointment with your surgeon Discharge Disposition: TRANSFER TO SNF/ECF <Arash Bailey - Last Filed: 06/30/21 15:44> Providers Date of admission: 06/20/21 15:44 Attending physician: Arash Bailey Consults: 06/20/21 15:40 Consult Physician Routine Consulting Provider: Eugenia Sanchez Consult Reason/Comments: medical mgmt Do you want consulting provider notified?: Yes 06/20/21 20:38 Consult Physician Routine Consulting Provider: Abdirizak Anderson Consult Reason/Comments: ICU care Do you want consulting provider notified?: Yes 06/22/21 10:16 Consult Physician Routine Consulting Provider: Jose Alicea Consult Reason/Comments: new onset Afib Do you want consulting provider notified?: Yes Primary care physician: Eugenia Sanchez - Discharge Diagnosis(es) (1) Pneumatosis intestinalis Status: Acute
[2021-06-30 14:28] VITALS: BMI 33.7
== END 2021-06-30 15:28 | DRG 854 ==
LOC: EC 13:04 → 4SSUR 15:44 → 2SICU 18:51 → 5NMEDONC 06-23 17:36
PROVIDERS: ADMIT Surgery; ATTEND Surgery
PROC: 0WQF0ZZ Repair Abdominal Wall, Open Approach (ICD-10-PCS; 2021-06-20)
PROC: 0D1B0Z4 Bypass Ileum to Cutaneous, Open Approach (ICD-10-PCS; principal; 2021-06-20 18:00)
PROC: 0DTF0ZZ Resection of Right Large Intestine, Open Approach (ICD-10-PCS; 2021-06-20 18:00)
DX: A41.9 Sepsis, unspecified organism (principal); K55.9 Vascular disorder of intestine, unspecified; K56.609 Unspecified intestinal obstruction, unspecified as to partial versus complete obstruction; N17.9 Acute kidney failure, unspecified; N18.4 Chronic kidney disease, stage 4 (severe); N39.0 Urinary tract infection, site not specified; I50.42 Chronic combined systolic (congestive) and diastolic (congestive) heart failure; I13.0 Hypertensive heart and chronic kidney disease with heart failure and stage 1 through stage 4 chronic kidney disease, or unspecified chronic kidney disease; D62 Acute posthemorrhagic anemia; Z16.24 Resistance to multiple antibiotics; Z20.822 Contact with and (suspected) exposure to COVID-19; K42.9 Umbilical hernia without obstruction or gangrene; K57.90 Diverticulosis of intestine, part unspecified, without perforation or abscess without bleeding; K63.89 Other specified diseases of intestine; I48.0 Paroxysmal atrial fibrillation; J44.9 Chronic obstructive pulmonary disease, unspecified; Z79.01 Long term (current) use of anticoagulants; Z79.4 Long term (current) use of insulin; Z79.82 Long term (current) use of aspirin; Z79.899 Other long term (current) drug therapy; Z82.49 Family history of ischemic heart disease and other diseases of the circulatory system; Z87.440 Personal history of urinary (tract) infections; Z87.891 Personal history of nicotine dependence; Z96.1 Presence of intraocular lens; I25.10 Atherosclerotic heart disease of native coronary artery without angina pectoris; I08.1 Rheumatic disorders of both mitral and tricuspid valves; F41.9 Anxiety disorder, unspecified; E87.5 Hyperkalemia; E78.5 Hyperlipidemia, unspecified; E11.42 Type 2 diabetes mellitus with diabetic polyneuropathy; E11.22 Type 2 diabetes mellitus with diabetic chronic kidney disease; I25.5 Ischemic cardiomyopathy; I27.22 Pulmonary hypertension due to left heart disease; N85.2 Hypertrophy of uterus; B96.20 Unspecified Escherichia coli [E. coli] as the cause of diseases classified elsewhere; M19.90 Unspecified osteoarthritis, unspecified site
CPT/HCPCS: 36410; 36415; 71045; 74176; 76937; 80048; 80053; 81001; 83036; 83605; 83690; 84132; 85025; 85027; 85610; 85730; 87077; 87086; 87186; 87635; 88307; 93005; 93306; 96374; 96375; 99285

== ENCOUNTER 2021-07-15 07:47 | Day surgery (SDC) | payer MEDICARE ==
[2021-07-14 09:13] VITALS: BMI 69.0
[~2021-07-15 07:47] MED LIST changes: +LACTATED RINGERS 1,000 ML IV SCH; -SODIUM CHLORIDE 0.9% 500 ML 500 ML IV SCH
[2021-07-15 08:14] VITALS: TEMP 97.4
[2021-07-15 08:28] LABS: Glucose,Whole Blood 193 mg/dL (75-99)
[2021-07-15] MEDS ORDERED: ONDANSETRON 4 MG/2 ML VIAL ONE (08:28)
[2021-07-15] MEDS ORDERED: PROPOFOL 10 MG/ML 20 ML VIAL IV ONE (09:16)
--- NOTE | 2021-07-15 09:21 | P.GSHP ---
History of Present Illness H&P Date: 07/15/21 Chief Complaint: Colon obstruction, rectal bleeding 80-year-old female known to our service. Underwent recent right colectomy with ileostomy and mucous fistula for distal colonic obstruction and right-sided ischemic changes. Patient here today for flexible sigmoidoscopy. Please refer to recent office notes for further details. Past Medical History Past Medical History: Heart Failure, Diabetes Mellitus, Hyperlipidemia, Hypertension, Osteoarthritis (OA), Renal Disease Additional Past Medical History / Comment(s): INSULIN- DIABETIC TYPE 2 , ACUTE KIDNEY FAILURE ,ILEOSTOMY,MUCOUS FISTULA, History of Any Multi-Drug Resistant Organisms: MRSA Date of last positivie culture/infection: 11/18/18 MDRO Source:: URINE MRSA Past Surgical History: Section, Cholecystectomy Additional Past Surgical History / Comment(s): Bilateral cataract removals/lens implants, wrist surgery, ILEOSTOMY - JUN 2021 Past Anesthesia/Blood Transfusion Reactions: No Reported Reaction Additional Past Anesthesia/Blood Transfusion Reaction / Comment(s): Pt recieved blood in past without reaction (after childbirth) Smoking Status: Former smoker - Past Family History Father Additional Family Medical History / Comment(s): Father from an industrial exposure at the age of 42 yrs. Mother Family Medical History: No Reported History Additional Family Medical History / Comment(s): Mother lived to be 95 yrs old. Medications and Allergies Home Medications Medication Instructions Recorded Confirmed Type FLUoxetine HCL [PROzac] 40 mg PO DAILY 10/18/18 07/14/21 History Metoprolol Tartrate [Lopressor] 50 mg PO BID 10/18/18 07/14/21 History Acetaminophen [Tylenol Extra 1,000 mg PO BID 06/20/21 07/14/21 History Strength] Calcium Acetate [PhosLo] 667 mg PO TID 06/20/21 07/15/21 History Pravastatin Sodium [Pravachol] 40 mg PO HS 06/20/21 07/14/21 History Apixaban [Eliquis] 2.5 mg PO BID 30 Days #60 tab 06/24/21 07/14/21 Rx Oxybutynin Chloride [Ditropan] 5 mg PO BID #0 06/30/21 07/14/21 Rx amLODIPine [Norvasc] 10 mg PO DAILY tab 06/30/21 07/14/21 Rx traMADol HCL [Ultram] 50 mg PO Q6HR PRN 2 Days #8 tab 06/30/21 07/14/21 Rx INSULIN LISPRO (humaLOG) [humaLOG] 0 units SQ ACHS 07/14/21 07/14/21 History Allergies Allergy/AdvReac Type Severity Reaction Status Date / Time codeine AdvReac Nausea & Verified 07/15/21 08:14 Vomiting Surgical - Exam Vital Signs Temp Pulse Resp BP Pulse Ox 97.4 F L 70 17 171/74 98 07/15/21 08:13 07/15/21 08:13 07/15/21 08:13 07/15/21 08:13 07/15/21 08:13 Physical exam: General: Well-developed, well-nourished HEENT: Normocephalic, sclerae nonicteric Abdomen: Nontender, nondistended, incision well-healed, ileostomy and mucous fistula intact Extremities: No edema Neuro: Alert and oriented Results - Labs Abnormal Lab Results - Last 24 Hours (Table) 07/15/21 Range/Units 08:28 POC Glucose (mg/dL) 193 H (75-99) mg/dL Assessment and Plan (1) Bowel obstruction Narrative/Plan: Will proceed with flexible sigmoidoscopy with biopsies of this time. Patient stopped her eloquis yesterday. Risks of bleeding discussed. Will proceed. Current Visit: No Status: Acute Code(s): K56.609 - UNSP INTESTNL OBST, UNSP TO PARTIAL VERSUS COMPLETE OBST SNOMED Code(s): 22760246
--- NOTE | 2021-07-15 09:48 | P.PCN ---
Date of Procedure: 07/15/21 Procedure(s) Performed: PREOPERATIVE DIAGNOSIS: Colonic obstruction POSTOPERATIVE DIAGNOSIS: Tortuous sigmoid colon with diverticulosis, no definitive obstruction identified PROCEDURE: [place] sigmoidoscopy ANESTHESIA: MAC SURGEON: Arash Bailey M.D. SPECIMENS: None ENDOSCOPIC PROCEDURE: The patient was placed on the endoscopy table in the left decubitus position. The Olympus colonoscope was inserted into the anus and passed under direct visualization to the mid to proximal sigmoid colon. The patient had extensive diverticulosis. There was tortuosity with some retained old stool. I could not visualize a definite obstruction. We were having difficulty navigating through the sigmoid colon because of the tortuosity but there was no definite luminal narrowing identified. The patient had stool present in the rectum that was evacuated manually. With our digital rectal examination I did get the sense of a pelvic mass. Otherwise the digital rectal examination was normal. The patient was taken to the recovery room in stable condition per anesthesia guidelines. RECOMMENDATIONS: Resume diet. Will ask patient to be seen by gynecology at this time.
[2021-07-15 09:52] VITALS: PULSE 69; RESP 20
[2021-07-15 11:25] VITALS: BP 125/62
== END 2021-07-15 13:32 ==
LOC: ORWHC2ENDO 07:47
PROVIDERS: ATTEND Surgery
DX: Q43.8 Other specified congenital malformations of intestine (principal); K57.30 Diverticulosis of large intestine without perforation or abscess without bleeding; K62.5 Hemorrhage of anus and rectum; I11.0 Hypertensive heart disease with heart failure; I50.9 Heart failure, unspecified; E11.9 Type 2 diabetes mellitus without complications; E78.5 Hyperlipidemia, unspecified; M19.90 Unspecified osteoarthritis, unspecified site; Z87.448 Personal history of other diseases of urinary system; Z86.14 Personal history of Methicillin resistant Staphylococcus aureus infection; Z98.891 History of uterine scar from previous surgery; Z90.49 Acquired absence of other specified parts of digestive tract; Z98.42 Cataract extraction status, left eye; Z98.41 Cataract extraction status, right eye; Z96.1 Presence of intraocular lens; Z98.890 Other specified postprocedural states; Z87.891 Personal history of nicotine dependence; Z79.01 Long term (current) use of anticoagulants; Z79.4 Long term (current) use of insulin; Z79.899 Other long term (current) drug therapy; Z88.5 Allergy status to narcotic agent
CPT/HCPCS: 45330; J2704

== ENCOUNTER 2021-07-29 13:12 | Inpatient (IN) | payer MEDICARE ==
[2021-07-29] MEDS ORDERED: SODIUM CHLORIDE 0.9% 1,000 ML IV STA (13:50)
[2021-07-29 14:35] LABS: Basophils # (A) 0.1 k/uL (0-0.2); Basophils % (A) 1 %; Eosinophils % (A) 0 %; HCT 38.8 % (34.0-46.0); Lymphocytes # (A) 3.8 k/uL (1.0-4.8); Lymphocytes % (A) 23 %; MCH 32.1 pg (25.0-35.0); MCHC 32.7 g/dL (31.0-37.0); MCV 98.1 fL (80.0-100.0); Mean Platelet Volume 8.5; Monocytes % (A) 6 %; Neutrophils # (A) 11.4 k/uL (1.3-7.7); Neutrophils % (A) 69 %; Platelet Count 370 k/uL (150-450); RBC 3.96 m/uL (3.80-5.40); RDW 14.4 % (11.5-15.5); WBC 16.7 k/uL (3.8-10.6)
--- NOTE | 2021-07-29 14:42 | ED ---
Weakness HPI - General Chief complaint: Weakness Stated complaint: weakness Source: patient, EMS Mode of arrival: EMS - History of Present Illness Initial comments: 80-year-old female past history of heart failure, diabetes, renal disease presents emergency Department with weakness. She was hospitalized from the through June 30 and had surgery by Dr. Quiñonez for a bowel obstruction. She had a right colectomy, and ileostomy with repair of an umbilical hernia. Patient was discharged to rehab rate states that since she has been home she has been weak. She is not getting out of bed and hasn't eaten anything. Reports that she doesn't have a good appetite. Denies any new or worsening abd pain. Does report that it hurts to cough. Denies any chest pain or shortness of breath. No fevers. No other alleviating, precipitating or modifying factors - Related Data Home Medications Medication Instructions Recorded Confirmed FLUoxetine HCL [PROzac] 40 mg PO DAILY 10/18/18 07/14/21 Metoprolol Tartrate [Lopressor] 50 mg PO BID 10/18/18 07/14/21 Acetaminophen [Tylenol Extra 1,000 mg PO BID 06/20/21 07/14/21 Strength] Calcium Acetate [PhosLo] 667 mg PO TID 06/20/21 07/15/21 Pravastatin Sodium [Pravachol] 40 mg PO HS 06/20/21 07/14/21 INSULIN LISPRO (humaLOG) [humaLOG] 0 units SQ ACHS 07/14/21 07/14/21 Previous Rx's Medication Instructions Recorded Apixaban [Eliquis] 2.5 mg PO BID 30 Days #60 tab 06/24/21 Oxybutynin Chloride [Ditropan] 5 mg PO BID #0 06/30/21 amLODIPine [Norvasc] 10 mg PO DAILY tab 06/30/21 traMADol HCL [Ultram] 50 mg PO Q6HR PRN 2 Days #8 tab 06/30/21 Allergies Allergy/AdvReac Type Severity Reaction Status Date / Time codeine AdvReac Nausea & Verified 07/15/21 08:14 Vomiting Review of Systems ROS Statement: Those systems with pertinent positive or pertinent negative responses have been documented in the HPI. ROS Other: All systems not noted in ROS Statement are negative. Past Medical History Past Medical History: Heart Failure, Diabetes Mellitus, Hyperlipidemia, Hypertension, Osteoarthritis (OA), Renal Disease Additional Past Medical History / Comment(s): INSULIN- DIABETIC TYPE 2 , ACUTE KIDNEY FAILURE ,ILEOSTOMY,MUCOUS FISTULA, History of Any Multi-Drug Resistant Organisms: MRSA Date of last positivie culture/infection: 11/18/18 MDRO Source:: URINE MRSA Past Surgical History: Section, Cholecystectomy Additional Past Surgical History / Comment(s): Bilateral cataract removals/lens implants, wrist surgery, ILEOSTOMY - JUN 2021 Past Anesthesia/Blood Transfusion Reactions: No Reported Reaction Additional Past Anesthesia/Blood Transfusion Reaction / Comment(s): Pt recieved blood in past without reaction (after childbirth) Past Psychological History: Anxiety, Depression Smoking Status: Former smoker Past Alcohol Use History: None Reported Past Drug Use History: None Reported - Past Family History Father Additional Family Medical History / Comment(s): Father from an industrial exposure at the age of 42 yrs. Mother Family Medical History: No Reported History Additional Family Medical History / Comment(s): Mother lived to be 95 yrs old. Course Vital Signs 07/29/21 13:15 Temperature 97.6 F Pulse Rate 93 Respiratory 20 Rate Blood Pressure 111/57 O2 Sat by Pulse 92 L Oximetry EKG Findings - EKG Comments: EKG Findings:: EKG demonstrates A. fib with a rate of 79. QRS 72. QTC of 463. No acute ST segment elevations or depressions concerning for ischemic changes Medical Decision Making - Medical Decision Making Upon arrival patient was placed into room 28. A thorough history and physical exam was performed. IV is established the patient is given a liter bolus of normal saline. Laboratory studies are conducted which demonstrates the patient has a white count of 16.7. Sodium is 129. Potassium 6. Creatinine 5.4. Troponin 0.044. Urinalysis is grossly infected. patient is Covid positive. She is given an amp of dextrose, 10 units of insulin, 1 amp of bicarb. She is started on 75 mL of saline per hour. Blood cultures obtained and the patient started on Rocephin. I spoke with the patient regards to her CODE STATUS and she would like to remain a full code at this time. Spoke with Dr. Fishman who will accept admission. I will place nephrology, pulmonology and Gen. surgery on consult. Patient remained in stable condition with a guarded prognosis - Lab Data Result diagrams: 07/29/21 14:12 07/29/21 14:12 Lab Results 07/29/21 07/29/21 07/29/21 Range/Units 14:12 14:12 14:12 WBC 16.7 H (3.8-10.6) k/uL RBC 3.96 (3.80-5.40) m/uL Hgb 12.7 D (11.4-16.0) gm/dL Hct 38.8 (34.0-46.0) % MCV 98.1 (80.0-100.0) fL MCH 32.1 (25.0-35.0) pg MCHC 32.7 (31.0-37.0) g/dL RDW 14.4 (11.5-15.5) % Plt Count 370 (150-450) k/uL MPV 8.5 Neutrophils % 69 % Lymphocytes % 23 % Monocytes % 6 % Eosinophils % 0 % Basophils % 1 % Neutrophils # 11.4 H (1.3-7.7) k/uL Lymphocytes # 3.8 (1.0-4.8) k/uL Monocytes # 1.0 (0-1.0) k/uL Eosinophils # 0.0 (0-0.7) k/uL Basophils # 0.1 (0-0.2) k/uL PT 10.3 (9.0-12.0) sec INR 1.0 (<1.2) APTT 23.0 (22.0-30.0) sec Sodium (137-145) mmol/L Potassium (3.5-5.1) mmol/L Chloride (98-107) mmol/L Carbon Dioxide (22-30) mmol/L Anion Gap mmol/L BUN (7-17) mg/dL Creatinine (0.52-1.04) mg/dL Est GFR (CKD-EPI)AfAm (>60 ml/min/1.73 sqM) Est GFR (CKD-EPI)NonAf (>60 ml/min/1.73 sqM) Glucose (74-99) mg/dL Plasma Lactic Acid Jeff (0.7-2.0) mmol/L Calcium (8.4-10.2) mg/dL Magnesium (1.6-2.3) mg/dL Total Bilirubin (0.2-1.3) mg/dL AST (14-36) U/L ALT (4-34) U/L Alkaline Phosphatase (38-126) U/L Troponin I (0.000-0.034) ng/mL Total Protein (6.3-8.2) g/dL Albumin (3.5-5.0) g/dL Urine Color Yellow Urine Appearance Cloudy H (Clear) Urine pH 5.5 (5.0-8.0) Ur Specific Leroy 1.013 (1.001-1.035) Urine Protein 2+ H (Negative) Urine Glucose (UA) Negative (Negative) Urine Ketones Negative (Negative) Urine Blood Moderate H (Negative) Urine Nitrite Negative (Negative) Urine Bilirubin Negative (Negative) Urine Urobilinogen <2.0 (<2.0) mg/dL Ur Leukocyte Esterase Large H (Negative) Urine RBC 42 H (0-5) /hpf Urine WBC >182 H (0-5) /hpf Urine WBC Clumps Moderate H (None) /hpf Ur Squamous Epith Cells 1 (0-4) /hpf Urine Bacteria Moderate H (None) /hpf Coronavirus (PCR) (Not Detectd) 07/29/21 07/29/21 07/29/21 Range/Units 14:12 14:12 14:12 WBC (3.8-10.6) k/uL RBC (3.80-5.40) m/uL Hgb (11.4-16.0) gm/dL Hct (34.0-46.0) % MCV (80.0-100.0) fL MCH (25.0-35.0) pg MCHC (31.0-37.0) g/dL RDW (11.5-15.5) % Plt Count (150-450) k/uL MPV Neutrophils % % Lymphocytes % % Monocytes % % Eosinophils % % Basophils % % Neutrophils # (1.3-7.7) k/uL Lymphocytes # (1.0-4.8) k/uL Monocytes # (0-1.0) k/uL Eosinophils # (0-0.7) k/uL Basophils # (0-0.2) k/uL PT (9.0-12.0) sec INR (<1.2) APTT (22.0-30.0) sec Sodium 129 L (137-145) mmol/L Potassium 6.0 H (3.5-5.1) mmol/L Chloride 96 L (98-107) mmol/L Carbon Dioxide 13 L (22-30) mmol/L Anion Gap 20 mmol/L BUN 100 H (7-17) mg/dL Creatinine 5.41 H (0.52-1.04) mg/dL Est GFR (CKD-EPI)AfAm 8 (>60 ml/min/1.73 sqM) Est GFR (CKD-EPI)NonAf 7 (>60 ml/min/1.73 sqM) Glucose 137 H (74-99) mg/dL Plasma Lactic Acid Jeff 1.4 (0.7-2.0) mmol/L Calcium 9.2 (8.4-10.2) mg/dL Magnesium 2.2 (1.6-2.3) mg/dL Total Bilirubin 0.3 (0.2-1.3) mg/dL AST 26 (14-36) U/L ALT 12 (4-34) U/L Alkaline Phosphatase 193 H (38-126) U/L Troponin I 0.044 H* (0.000-0.034) ng/mL Total Protein 7.4 (6.3-8.2) g/dL Albumin 3.6 (3.5-5.0) g/dL Urine Color Urine Appearance (Clear) Urine pH (5.0-8.0) Ur Specific Leroy (1.001-1.035) Urine Protein (Negative) Urine Glucose (UA) (Negative) Urine Ketones (Negative) Urine Blood (Negative) Urine Nitrite (Negative) Urine Bilirubin (Negative) Urine Urobilinogen (<2.0) mg/dL Ur Leukocyte Esterase (Negative) Urine RBC (0-5) /hpf Urine WBC (0-5) /hpf Urine WBC Clumps (None) /hpf Ur Squamous Epith Cells (0-4) /hpf Urine Bacteria (None) /hpf Coronavirus (PCR) (Not Detectd) 07/29/21 Range/Units 14:12 WBC (3.8-10.6) k/uL RBC (3.80-5.40) m/uL Hgb (11.4-16.0) gm/dL Hct (34.0-46.0) % MCV (80.0-100.0) fL MCH (25.0-35.0) pg MCHC (31.0-37.0) g/dL RDW (11.5-15.5) % Plt Count (150-450) k/uL MPV Neutrophils % % Lymphocytes % % Monocytes % % Eosinophils % % Basophils % % Neutrophils # (1.3-7.7) k/uL Lymphocytes # (1.0-4.8) k/uL Monocytes # (0-1.0) k/uL Eosinophils # (0-0.7) k/uL Basophils # (0-0.2) k/uL PT (9.0-12.0) sec INR (<1.2) APTT (22.0-30.0) sec Sodium (137-145) mmol/L Potassium (3.5-5.1) mmol/L Chloride (98-107) mmol/L Carbon Dioxide (22-30) mmol/L Anion Gap mmol/L BUN (7-17) mg/dL Creatinine (0.52-1.04) mg/dL Est GFR (CKD-EPI)AfAm (>60 ml/min/1.73 sqM) Est GFR (CKD-EPI)NonAf (>60 ml/min/1.73 sqM) Glucose (74-99) mg/dL Plasma Lactic Acid Jeff (0.7-2.0) mmol/L Calcium (8.4-10.2) mg/dL Magnesium (1.6-2.3) mg/dL Total Bilirubin (0.2-1.3) mg/dL AST (14-36) U/L ALT (4-34) U/L Alkaline Phosphatase (38-126) U/L Troponin I (0.000-0.034) ng/mL Total Protein (6.3-8.2) g/dL Albumin (3.5-5.0) g/dL Urine Color Urine Appearance (Clear) Urine pH (5.0-8.0) Ur Specific Leroy (1.001-1.035) Urine Protein (Negative) Urine Glucose (UA) (Negative) Urine Ketones (Negative) Urine Blood (Negative) Urine Nitrite (Negative) Urine Bilirubin (Negative) Urine Urobilinogen (<2.0) mg/dL Ur Leukocyte Esterase (Negative) Urine RBC (0-5) /hpf Urine WBC (0-5) /hpf Urine WBC Clumps (None) /hpf Ur Squamous Epith Cells (0-4) /hpf Urine Bacteria (None) /hpf Coronavirus (PCR) Detected A (Not Detectd) Disposition Clinical Impression: Atrial fibrillation, ARF (acute renal failure), COVID-19, Hyperkalemia, Dehydration, Prerenal azotemia, NSTEMI (non-ST elevated myocardial infarction) Disposition: ADMITTED IP TO THIS HOSP Condition: Serious Is patient prescribed a controlled substance at d/c from ED?: No Decision to Admit Reason: Admit from EC Decision Date: 07/29/21 Decision Time: 16:20
[2021-07-29 14:44] LABS: Albumin 3.6 g/dL (3.5-5.0); Calcium 9.2 mg/dL (8.4-10.2); Magnesium 2.2 mg/dL (1.6-2.3); Total Bilirubin 0.3 mg/dL (0.2-1.3); Total Protein 7.4 g/dL (6.3-8.2)
[2021-07-29 14:49] LABS: Prothrombin Time 10.3 sec (9.0-12.0)
[2021-07-29 14:52] LABS: Appearance,Urine Cloudy (Clear); Bacteria,Urine Moderate /hpf; Bilirubin,Urine Negative (Negative); Blood,Urine Moderate (Negative); Color,Urine Yellow; Glucose,Urine (UA) Negative (Negative); Ketones,Urine Negative (Negative); Leukocyte Esterase,Urine Large (Negative); Nitrite,Urine Negative (Negative); PH, Urine 5.5 (5.0-8.0); Protein,Urine 2+ (Negative); RBC,Urine 42 /hpf (0-5); Specific Gravity,Urine 1.013 (1.001-1.035); Squamous Epithelial Cell,Urine 1 /hpf (0-4); Urobilinogen,Urine <2.0 mg/dL (<2.0); WBC,Urine >182 /hpf (0-5)
[2021-07-29 15:02] LABS: HGB 12.7 gm/dL (11.4-16.0)
--- NOTE | 2021-07-29 15:36 | XR ---
EXAMINATION TYPE: XR chest 2V DATE OF EXAM: 07/29/2021 COMPARISON: Chest x-ray 06/23/2021 HISTORY: Weakness and nausea TECHNIQUE: Frontal and lateral views of the chest are obtained. FINDINGS: Cardiac mediastinal silhouette shows a similar appearance. Heart is borderline enlarged. N o pneumothorax or pleural effusion. There are overlying artifacts. No evident airspace disease. There is evidence of old granulomatous disease. Aorta is dense. Postop changes are noted in the upper abdo men. Question some prominence of pulmonary artery. IMPRESSION: No acute cardiopulmonary process. Additional findings above.
--- NOTE | 2021-07-29 16:00 | XR ---
EXAMINATION TYPE: XR KUB DATE OF EXAM: 07/29/2021 Comparison: CT 06/20/2021 Clinical History: 80-year-old female weakness Findings: Left mid abdominal ostomy is demonstrated with adjacent staple line from prior bowel surgery. No dila jaret small bowel loops. Some distal colonic air is noted. Some colonic air adjacent to the patient's l eft-sided ostomy. Slight levoconvex scoliosis. Supine imaging limited for assessment of free air. Impression: Left lateral mid abdominal ostomy. Supine imaging limited for assessment of free air. Overall nonobst ructive bowel gas pattern.
[2021-07-29] MEDS ORDERED: INSULIN REGULAR 100 UNIT/ML VIAL (IV) IV ONE (16:12)
[2021-07-29] MEDS ORDERED: DEXTROSE 50% SYRINGE 50 ML IVP STA (16:12)
[2021-07-29] MEDS ORDERED: SODIUM CHLORIDE 0.9% 1,000 ML IV ONE (16:12)
[2021-07-29] MEDS ORDERED: SODIUM BICARB 8.4% 50 ML SYR (1 MEQ/ML) IV STA (16:13)
[2021-07-29] MEDS ORDERED: cefTRIAXone IN SWFI 1,000 MG/10 ML SYRINGE IVP STA (16:18)
[2021-07-29] MEDS ORDERED: NALOXONE 0.4 MG/ML 1 ML VIAL IV PRN (16:43)
[2021-07-29] MEDS ORDERED: ACETAMINOPHEN TAB 325 MG TAB PO PRN (16:43)
[2021-07-29 17:20] LABS: Glucose,Whole Blood 225 mg/dL (75-99)
[2021-07-29 22:57] LABS: Calcium 7.9 mg/dL (8.4-10.2); Potassium 4.8 mmol/L (3.5-5.1)
[2021-07-29 23:16] LABS: Glucose,Whole Blood 121 mg/dL (75-99)
[2021-07-30 04:22] LABS: Basophils # (A) 0.1 k/uL (0-0.2); Basophils % (A) 0 %; Eosinophils % (A) 0 %; HCT 35.1 % (34.0-46.0); Hypochromasia Slight; Lymphocytes # (A) 3.5 k/uL (1.0-4.8); Lymphocytes % (A) 24 %; MCH 31.3 pg (25.0-35.0); MCHC 31.3 g/dL (31.0-37.0); MCV 100.1 fL (80.0-100.0); Macrocytosis Slight; Mean Platelet Volume 8.4; Monocytes # (A) 1.1 k/uL (0-1.0); Monocytes % (A) 7 %; Neutrophils # (A) 9.5 k/uL (1.3-7.7); Neutrophils % (A) 66 %; Platelet Count 336 k/uL (150-450); RDW 14.4 % (11.5-15.5); WBC 14.4 k/uL (3.8-10.6)
[2021-07-30 04:28] LABS: Calcium 7.6 mg/dL (8.4-10.2); Potassium 4.4 mmol/L (3.5-5.1)
[2021-07-30] MEDS ORDERED: ACETAMINOPHEN TAB 500 MG TAB PO PRN (05:57)
--- NOTE | 2021-07-30 06:02 | P.HPIM ---
History of Present Illness H&P Date: 07/29/21 HISTORY OF PRESENT ILLNESS 80-year-old female one of Dr. Sanchez's patient with past medical history of CAD, hypertension, hyperlipidemia, recurrent urinary tract infection, who was hospitalized recently for recurrent abdominal pain and distention ended up going forSigmoidoscopy and biopsy patient had obstruction ended up going for surgery with Dr. gipson us in 2 weeks ago and was apparently discharged to [facility] on the [place] where patient spent up till the last few days. She presented to the emergency department today with worsening weakness fatigue and worsening symptom s. When she was in the hospital last time had right colectomy and ileostomy with repair of umbilical hernia had some exposure to COVID-19 in the hospital and penitentiary as well. Patient being very sick today ended up coming to the emergency department was seen and evaluated surprisingly her urine was very positive her potassium was 6.0, BUN was 100 with creatinine of 5.41 white blood cell was 16.7 with left shifted troponin was mildly elevated UA and culture were positive and COVID-19 was positive. 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 Also we'll consult with Dr. gipson to make sure this is not a complication related to surgery. REVIEW OF SYSTEMS Constitutional: No fever, no chills, no night sweats. No weight change. No weakness, fatigue or lethargy. No daytime sleepiness. Slightly confused does not look in any respiratory distress. EENT: No headache. No blurred vision or double vision, no loss of vision. No loss of Hearing, no ringing in the ears, no dizziness. No nasal drainage or congestion. No epistaxis. No sore throat. Lungs: No shortness of breath, cough, no sputum production. No wheezing. Cardiovascular: Mild PND and orthopnea and no chest pain slight edema of the lower extremity mild palpitation with exertion. Abdominal: Significant distention with mild abdominal discomfort more than pain with significant nausea vomiting positive an episode of large bowel movement at the time with no blood in it. Significant decrease in appetite. Genitourinary: No dysuria, increased frequency, urgency. No urinary retention. Decrease urine output. Musculoskeletal: No myalgias. No muscle weakness, no gait dysfunction, no frequent falls. No back pain. No neck pain. Integumentary: No wounds, no lesions. No rash or pruritus. No unusual bruising. No change in hair or nails. Neurologic: No motor deficit visualized weakness had slight change mental status. Psychiatric: No depression. No anxiety. No mood swings. Endocrine: No abnormal blood sugars. No weight change. No excessive sweating or thirst. No cold intolerance. SOCIAL HISTORY No smoking, no alcohol abuse, she has been in a senior housing in penitentiary. FAMILY HISTORY Positive for CAD father from industrial explosion at age 42. PHYSICAL EXAMINATION Gen: This is an elderly laying in bed with significant abdominal distention with slight nausea at the time. HEENT: Head is atraumatic, normocephalic. Pupils equal, round. Sclerae is anicteric. NECK: Supple. No JVD. No lymphadenopathy. No thyromegaly. LUNGS: Decreased breath some bilateral rhonchi and mild expiratory wheezes. HEART: Regular rate and rhythm. Mild tachycardia. ABDOMEN: Significant distention with slight abdominal tenderness with no rebound or rigidity. Decrease in bowel sounds. EXTREMITIES: No pedal edema. No calf tenderness. NEUROLOGICAL: Patient is awake, alert with slight confusion. Cranial nerves 2 through 12 are grossly intact. ASSESSMENT AND PLAN 1 acute respiratory failure: Secondary to COVID-19 pneumonitis, sepsis, acute kidney injury and recent history of bowel obstruction. Treat underlying disease watch symptoms carefully repeat BUN/creatinine 24 hours continue high flow oxygen. 2. acute kidney failure: Secondary to acute tubular necrosis and hypoperfusion. The patient's current symptoms until hydration with the patient be seen nephrology if no improvement might require dialysis. 3 sepsis: Most likely from UTI infection also she had COVID-19 itch might be causing more symptoms as well. Continue fluid resuscitation and supportive care. 4 UTI: UA was very positive this point patient will be on IV antibiotic with product like Zosyn no Rocephin initially for the cultures back. 5 severe hyperkalemia with potassium of 6.0: Kayexalate was giving try to stabilize potassium bring it down to normal. 6 recent history of bowel obstruction post right sided colectomy partial resection consult general surgery again to see if there is any complication specially with the current lab value. 7 recurrent abdominal pain was secondary to ischemic colitis and early perforation patient ended up going for surgery. 8 history of congestive heart failure: Has been on metoprolol, furosemide and fluid restriction. 9 type 2 diabetes: Has been on NovoLog continue Accu-Chek sliding scales coverage for now hold off on any long-acting insulin. 10 acute kidney injury with chronic kidney disease: With creatinine much worse at this point continue hydration repeat CMP. 11 chronic neuropathy: Has been on Lyrica 75 mg twice a day. 12 hyperlipidemia: We'll continue patient on Lipitor 20 mg daily. 13 chronic edema: Remain on diuretics. 14 COPD: Continue DuoNeb and if needed will add Pulmicort. 15 DVT prophylaxis: Patient will be on heparin subcutaneous or Lovenox. 16 GI prophylaxis: Patient be on pantoprazole IV. CODE STATUS: Full code. Patient will be admitted to the hospital for a minimum of 2 night stay. Past Medical History Past Medical History: Heart Failure, Diabetes Mellitus, Hyperlipidemia, Hypertension, Osteoarthritis (OA), Renal Disease Additional Past Medical History / Comment(s): INSULIN- DIABETIC TYPE 2 , ACUTE KIDNEY FAILURE ,ILEOSTOMY,MUCOUS FISTULA, History of Any Multi-Drug Resistant Organisms: MRSA Date of last positivie culture/infection: 11/18/18 MDRO Source:: URINE MRSA Past Surgical History: Section, Cholecystectomy Additional Past Surgical History / Comment(s): Bilateral cataract removals/lens implants, wrist surgery, ILEOSTOMY - JUN 2021 Past Anesthesia/Blood Transfusion Reactions: No Reported Reaction Additional Past Anesthesia/Blood Transfusion Reaction / Comment(s): Pt recieved blood in past without reaction (after childbirth) Past Psychological History: Anxiety, Depression Smoking Status: Former smoker Past Alcohol Use History: None Reported Past Drug Use History: None Reported - Past Family History Father Additional Family Medical History / Comment(s): Father from an industrial exposure at the age of 42 yrs. Mother Family Medical History: No Reported History Additional Family Medical History / Comment(s): Mother lived to be 95 yrs old. Medications and Allergies Home Medications Medication Instructions Recorded Confirmed Type FLUoxetine HCL [PROzac] 40 mg PO DAILY 10/18/18 07/29/21 History Metoprolol Tartrate [Lopressor] 50 mg PO BID 10/18/18 07/29/21 History Acetaminophen [Tylenol Extra 1,000 mg PO BID PRN 06/20/21 07/29/21 History Strength] Calcium Acetate [PhosLo] 667 mg PO TID-W/MEALS 06/20/21 07/29/21 History Pravastatin Sodium [Pravachol] 40 mg PO HS 06/20/21 07/29/21 History Apixaban [Eliquis] 2.5 mg PO BID 30 Days #60 tab 06/24/21 07/29/21 Rx Oxybutynin Chloride [Ditropan] 5 mg PO BID #0 06/30/21 07/29/21 Rx Insulin Lispro Protamin/Lispro See Protocol SQ AC-TID 07/29/21 07/29/21 History [humaLOG Mix 75-25 Kwikpen] amLODIPine [Norvasc] 10 mg PO DAILY 07/29/21 07/29/21 History Allergies Allergy/AdvReac Type Severity Reaction Status Date / Time codeine AdvReac Nausea & Verified 07/29/21 18:41 Vomiting Physical Exam Vitals: Vital Signs Temp Pulse Resp BP Pulse Ox 07/29/21 18:10 109/69 07/29/21 18:05 78 18 82/42 97 07/29/21 13:15 97.6 F 93 20 111/57 92 L Intake and Output 07/29/21 07/29/21 07/29/21 06:59 14:59 22:59 Output Total 100 Balance -100 Output: Urine 100 Straight 100 Other: Weight 73.936 kg Results CBC & Chem 7: 07/29/21 14:12 07/29/21 14:12 Labs: Abnormal Lab Results - Last 24 Hours (Table) 07/29/21 07/29/21 07/29/21 Range/Units 14:12 14:12 14:12 WBC 16.7 H (3.8-10.6) k/uL Neutrophils # 11.4 H (1.3-7.7) k/uL Sodium 129 L (137-145) mmol/L Potassium 6.0 H (3.5-5.1) mmol/L Chloride 96 L (98-107) mmol/L Carbon Dioxide 13 L (22-30) mmol/L BUN 100 H (7-17) mg/dL Creatinine 5.41 H (0.52-1.04) mg/dL Glucose 137 H (74-99) mg/dL POC Glucose (mg/dL) (75-99) mg/dL Alkaline Phosphatase 193 H (38-126) U/L Troponin I (0.000-0.034) ng/mL Urine Appearance Cloudy H (Clear) Urine Protein 2+ H (Negative) Urine Blood Moderate H (Negative) Ur Leukocyte Esterase Large H (Negative) Urine RBC 42 H (0-5) /hpf Urine WBC >182 H (0-5) /hpf Urine WBC Clumps Moderate H (None) /hpf Urine Bacteria Moderate H (None) /hpf Coronavirus (PCR) (Not Detectd) 07/29/21 07/29/21 07/29/21 Range/Units 14:12 14:12 17:17 WBC (3.8-10.6) k/uL Neutrophils # (1.3-7.7) k/uL Sodium (137-145) mmol/L Potassium (3.5-5.1) mmol/L Chloride (98-107) mmol/L Carbon Dioxide (22-30) mmol/L BUN (7-17) mg/dL Creatinine (0.52-1.04) mg/dL Glucose (74-99) mg/dL POC Glucose (mg/dL) 225 H (75-99) mg/dL Alkaline Phosphatase (38-126) U/L Troponin I 0.044 H* (0.000-0.034) ng/mL Urine Appearance (Clear) Urine Protein (Negative) Urine Blood (Negative) Ur Leukocyte Esterase (Negative) Urine RBC (0-5) /hpf Urine WBC (0-5) /hpf Urine WBC Clumps (None) /hpf Urine Bacteria (None) /hpf Coronavirus (PCR) Detected A (Not Detectd) 07/29/21 Range/Units 17:31 WBC (3.8-10.6) k/uL Neutrophils # (1.3-7.7) k/uL Sodium (137-145) mmol/L Potassium (3.5-5.1) mmol/L Chloride (98-107) mmol/L Carbon Dioxide (22-30) mmol/L BUN (7-17) mg/dL Creatinine (0.52-1.04) mg/dL Glucose (74-99) mg/dL POC Glucose (mg/dL) (75-99) mg/dL Alkaline Phosphatase (38-126) U/L Troponin I 0.039 H* (0.000-0.034) ng/mL Urine Appearance (Clear) Urine Protein (Negative) Urine Blood (Negative) Ur Leukocyte Esterase (Negative) Urine RBC (0-5) /hpf Urine WBC (0-5) /hpf Urine WBC Clumps (None) /hpf Urine Bacteria (None) /hpf Coronavirus (PCR) (Not Detectd) Microbiology - Last 24 Hours (Table) 07/29/21 14:12 Urine Culture - Preliminary Urine,Voided
[2021-07-30 06:38] LABS: Glucose,Whole Blood 96 mg/dL (75-99)
[2021-07-30] MEDS: CALCIUM ACETATE 667 MG TAB PO SCH ×3 (06:42→17:29)
[2021-07-30] MEDS: PANTOPRAZOLE 40 MG TABLET PO SCH (06:43)
[2021-07-30] MEDS: INSULIN ASPART (NovoLOG) 100 UNIT/ML VIAL SQ SCH ×4 (06:45→21:16)
[2021-07-30] MEDS: dexAMETHasone 2 MG TAB PO SCH (09:10)
[2021-07-30] MEDS: OXYBUTYNIN CHLORIDE 5 MG TAB PO SCH ×2 (09:10→21:17)
[2021-07-30] MEDS: APIXABAN 2.5 MG TABLET PO SCH ×2 (09:10→21:16)
[2021-07-30] MEDS: METOPROLOL TARTRATE 50 MG TAB PO SCH ×2 (09:10→21:16)
[2021-07-30] MEDS: ZINC SULFATE 220 MG CAP PO SCH (09:10)
[2021-07-30] MEDS: FLUoxetine HCL 20 MG CAP PO SCH (09:10)
[2021-07-30] MEDS: ASCORBIC ACID 500 MG TAB PO SCH (09:10)
[2021-07-30] MEDS: amLODIPine 10 MG TAB PO SCH (09:10)
--- NOTE | 2021-07-30 11:46 | P.CNPUL ---
History of Present Illness Consult date: 07/30/21 Requesting physician: Kalia Aggarwal Reason for consult: other Chief complaint: Weakness. History of present illness: Pulmonary consult dated 07/30/2021. 80-year-old female, with a history of diabetes, heart failure, renal disease, who was seen in the emergency department on 07/29/2021. We were consulted, because the patient tested positive for coronavirus on this admission. She was in the hospital between June 20 and June 30, at which time we saw her, because she had some bowel surgery. She had a colectomy and ileostomy and umbilicus hernia repair, and mucous fistula. The surgery was done by Dr. Bailey. Anyway, the patient comes into the emergency department because for the last 2 or 3 days, she's been profoundly weak. She apparently is on vaccinated. She tested positive for coronavirus on July 29. She's been sick for at least 1 week. Not really having much in the way of shortness of breath, cough or anything like that. Most of it relates to just weakness, poor appetite, and dehydration. White count 14.4, hemoglobin 11, hematocrit 35.1, platelet count 336,000. Sodium 132, potassium 4.4, chlorides 104, CO2 13, anion gap 15, BUN 91, and creatinine 4.26. Troponins were 0.039 and 0.042. Urine, showed moderate blood, large leukocyte esterase, moderate WBC clumps, greater than 182 WBCs, and moderate bacteria. This is consistent with a urinary tract infection. Her coronavirus testing was positive. Chest x-ray was normal without any infiltrates. She is currently on 2 L nasal cannula, and she is getting a saline IV at [facility]. Review of Systems REVIEW OF SYSTEMS: CONSTITUTIONAL: Weakness. NEUROLOGIC: [ Negative.] HEENT: [ Negative.] CARDIAC: [Negative.] PULMONARY: [Negative.] GI: Poor oral intake, dehydration. : [Negative.] RHEUMATOLOGIC: [ Negative.] IMMUNOLOGIC: [ Negative.] ENDOCRINE: [Negative. ] DERMATOLOGIC: [Negative.] Past Medical History Past Medical History: Heart Failure, Diabetes Mellitus, Hyperlipidemia, Hypertension, Osteoarthritis (OA), Renal Disease Additional Past Medical History / Comment(s): INSULIN- DIABETIC TYPE 2 , ACUTE KIDNEY FAILURE ,ILEOSTOMY,MUCOUS FISTULA, History of Any Multi-Drug Resistant Organisms: MRSA Date of last positivie culture/infection: 11/18/18 MDRO Source:: URINE MRSA Past Surgical History: Section, Cholecystectomy Additional Past Surgical History / Comment(s): Bilateral cataract removals/lens implants, wrist surgery, ILEOSTOMY - JUN 2021 Past Anesthesia/Blood Transfusion Reactions: No Reported Reaction Additional Past Anesthesia/Blood Transfusion Reaction / Comment(s): Pt recieved blood in past without reaction (after childbirth) Past Psychological History: Anxiety, Depression Smoking Status: Former smoker Past Alcohol Use History: None Reported Past Drug Use History: None Reported - Past Family History Father Additional Family Medical History / Comment(s): Father from an industrial exposure at the age of 42 yrs. Mother Family Medical History: No Reported History Additional Family Medical History / Comment(s): Mother lived to be 95 yrs old. Medications and Allergies Home Medications Medication Instructions Recorded Confirmed Type FLUoxetine HCL [PROzac] 40 mg PO DAILY 10/18/18 07/29/21 History Metoprolol Tartrate [Lopressor] 50 mg PO BID 10/18/18 07/29/21 History Acetaminophen [Tylenol Extra 1,000 mg PO BID PRN 06/20/21 07/29/21 History Strength] Calcium Acetate [PhosLo] 667 mg PO TID-W/MEALS 06/20/21 07/29/21 History Pravastatin Sodium [Pravachol] 40 mg PO HS 06/20/21 07/29/21 History Apixaban [Eliquis] 2.5 mg PO BID 30 Days #60 tab 06/24/21 07/29/21 Rx Oxybutynin Chloride [Ditropan] 5 mg PO BID #0 06/30/21 07/29/21 Rx Insulin Lispro Protamin/Lispro See Protocol SQ AC-TID 07/29/21 07/29/21 History [humaLOG Mix 75-25 Kwikpen] amLODIPine [Norvasc] 10 mg PO DAILY 07/29/21 07/29/21 History Allergies Allergy/AdvReac Type Severity Reaction Status Date / Time codeine AdvReac Nausea & Verified 07/29/21 18:41 Vomiting Physical Exam Osteopathic Statement: *. No significant issues noted on an osteopathic struc tural exam other than those noted in the History and Physical/Consult. Vitals: Vital Signs Temp Pulse Pulse Resp BP BP Pulse Ox 07/30/21 08:00 97.6 F 74 20 103/53 100 07/30/21 04:10 97.7 F 78 18 102/62 100 07/30/21 00:07 97.4 F L 77 16 104/55 99 07/29/21 20:00 97.0 F L 78 18 103/62 100 07/29/21 18:10 109/69 07/29/21 18:05 78 18 82/42 97 07/29/21 13:15 97.6 F 93 20 111/57 92 L Intake and Output 07/29/21 07/30/21 07/30/21 22:59 06:59 14:59 Output Total 600 550 Balance -600 -550 Output: Urine 200 300 Stool 400 250 Other: Voiding Method Indwelling Catheter Indwelling Catheter Indwelling Catheter Weight 73.936 kg No acute distress, oriented 3. Appears very weak and frail. Currently on 2 L nasal cannula. HEENT examination is grossly unremarkable. Neck supple. Full range of motion. No adenopathy thyromegaly or neck vein distention. Cardiovascular examination reveals regular rhythm rate. S1-S2 normal. No S3 or S4. No discernible murmur noted. Heart rate 74 bpm. Lungs reveal clear breath sounds. Breath sounds are equal bilaterally. No adventitious lung sounds including wheezes rhonchi or crackles. Abdomen soft, with bowel sounds. She has a functioning ileostomy. Extremities are intact. No cyanosis clubbing or edema. Skin is without rash or lesion. Neurologic examination is brief but nonfocal. Results - Laboratory Findings CBC and BMP: 07/30/21 02:50 07/30/21 02:50 PT/INR, D-dimer PT 10.3 sec (9.0-12.0) 07/29/21 14:12 INR 1.0 (<1.2) 07/29/21 14:12 Abnormal lab findings: Abnormal Labs 07/29/21 07/29/21 07/29/21 14:12 14:12 14:12 WBC 16.7 H RBC Hgb MCV Neutrophils # 11.4 H Monocytes # Sodium 129 L Potassium 6.0 H Chloride 96 L Carbon Dioxide 13 L BUN 100 H Creatinine 5.41 H Glucose 137 H POC Glucose (mg/dL) Calcium Alkaline Phosphatase 193 H Troponin I Urine Appearance Cloudy H Urine Protein 2+ H Urine Blood Moderate H Ur Leukocyte Esterase Large H Urine RBC 42 H Urine WBC >182 H Urine WBC Clumps Moderate H Urine Bacteria Moderate H Coronavirus (PCR) 07/29/21 07/29/21 07/29/21 14:12 14:12 17:17 WBC RBC Hgb MCV Neutrophils # Monocytes # Sodium Potassium Chloride Carbon Dioxide BUN Creatinine Glucose POC Glucose (mg/dL) 225 H Calcium Alkaline Phosphatase Troponin I 0.044 H* Urine Appearance Urine Protein Urine Blood Ur Leukocyte Esterase Urine RBC Urine WBC Urine WBC Clumps Urine Bacteria Coronavirus (PCR) Detected A 07/29/21 07/29/21 07/29/21 17:31 22:28 22:28 WBC RBC Hgb MCV Neutrophils # Monocytes # Sodium 133 L Potassium Chloride Carbon Dioxide 13 L BUN 95 H Creatinine 4.59 H Glucose 113 H POC Glucose (mg/dL) Calcium 7.9 L Alkaline Phosphatase Troponin I 0.039 H* 0.042 H* Urine Appearance Urine Protein Urine Blood Ur Leukocyte Esterase Urine RBC Urine WBC Urine WBC Clumps Urine Bacteria Coronavirus (PCR) 07/29/21 07/30/21 07/30/21 23:14 02:50 02:50 WBC 14.4 H RBC 3.50 L Hgb 11.0 L MCV 100.1 H Neutrophils # 9.5 H Monocytes # 1.1 H Sodium 132 L Potassium Chloride Carbon Dioxide 13 L BUN 91 H Creatinine 4.26 H Glucose POC Glucose (mg/dL) 121 H Calcium 7.6 L Alkaline Phosphatase Troponin I Urine Appearance Urine Protein Urine Blood Ur Leukocyte Esterase Urine RBC Urine WBC Urine WBC Clumps Urine Bacteria Coronavirus (PCR) - Diagnostic Findings Chest x-ray: image reviewed Assessment and Plan Assessment: Coronavirus infection, without obvious coronavirus associated pneumonia. Weakness, and dehydration, secondary to coronavirus infection. Probable urinary tract infection. Acute kidney injury. Recent exploratory laparotomy, right colectomy and ileostomy, with repair of umbilicus hernia, and mucous fistula, between June 20 and June 30, 2021. History of CHF. History of diabetes mellitus. History of hyperlipidemia. History of hypertension. Osteoarthritis. Plan: Plan dated 07/30/2021. The patient has coronavirus infection, without significant coronavirus associated pneumonia. She likely does not need supplemental oxygen. In addition, I don't believe she is a candidate for Decadron in my opinion, given the fact she is not having any respiratory issues. She is on Zosyn for suspected urinary tract infection. Vitamin C, vitamin D3, and zinc are appropriate. The patient should be properly hydrated. Nephrology should be consulted. Additional recommendations and suggestions are forthcoming.We will follow along and make recommendations where appropriate. Time with Patient: Greater than 30
[2021-07-30 12:02] LABS: Glucose,Whole Blood 146 mg/dL (75-99)
[2021-07-30] MEDS: PIPERACILLIN-TAZOBACTAM 3.375 GM in SODIUM CHLORIDE 0.9% 100 ML IVPB SCH ×2 (12:18→21:17)
--- NOTE | 2021-07-30 12:57 | P.GSCN ---
<Marisa Martinez - Last Filed: 07/30/21 12:37> History of Present Illness Consult date: 07/30/21 History of present illness: CHIEF COMPLAINT: Weakness HISTORY OF PRESENT ILLNESS: This is a 80-year-old female who is status post exploratory laparotomy with right colectomy, end ileostomy, mucous fistula and repair of umbilical hernia for a colonic obstruction with pneumatosis of the right colon on 06/20/2021. Patient did go to rehab after discharge from the hospital. She currently has been at home. She has been feeling weak and has had decreased appetite. She did have an episode of vomiting yesterday which was whitish curd-like in color. She denies any abdominal pain. She reports having stool through her ileostomy. Patient also admits to a cough. She's been found to be Covid 19 positive. She is being treated for possible UTI and acute kidney injury. Patient did have a flexible sigmoidoscopy on 07/15/2021 and at that time on Dr. Bailey's rectal exam he did have a sense of pelvic mass. Surgical services consult. Due to patient's nausea vomiting and recent ileostomy. Patie nt denies any fever, chills or sweats. Patient does take Eliquis. PAST MEDICAL HISTORY: See list. PAST SURGICAL HISTORY: See list. MEDICATIONS: See list. ALLERGIES: See list. SOCIAL HISTORY: No illicit drug use. REVIEW OF SYSTEMS: CONSTITUTIONAL: Denies fever or chills. HEENT: Denies blurred vision, vision changes, or eye pain. Denies hemoptysis CARDIOVASCULAR: Denies chest pain or pressure. RESPIRATORY: No shortness of breath. GASTROINTESTINAL: See HPI for pertinent findings HEMATOLOGIC: Denies bleeding disorders. GENITOURINARY: Denies any blood in urine or increased urinary frequency. SKIN: Denies pruitis. Denies rash. PHYSICAL EXAM: VITAL SIGNS: Reviewed GENERAL: Well-developed in no acute distress. HEENT: No sclera icterus. Extraocular movements grossly intact. Moist buccal mucosa. Head is atraumatic, normocephalic. No nasal drainage. ABDOMEN: Soft. Nondistended. Nontender. Ostomy on right side of abdomen with brown stool present. Mucous fistula on the left NEUROLOGIC: Alert and oriented. Cranial nerves II through XII grossly intact. LABORATORY DATA: WBC 16.7 down to 14.4 Hgb 11.0 platelets 336 INR 1.0 Sodium 132 potassium 4.4 creatinine 4.26 LFTs normal Troponin 0.042 Urinalysis evidence of UTI COVID-19 positive IMAGING: Chest x-ray no acute cardiopulmonary process KUB x-ray left lateral mid abdominal ostomy. Supine imaging limited for assessment of free air. Overall nonobstructive bowel gas pattern. ASSESSMENT: 1. One episode of emesis 2. Dehydration with acute kidney injury 3. Weakness 4. Pelvic mass noted on 07/15/[address] Bailey performed patient's flexible sigmoidoscopy 5. Status post exploratory laparotomy with right colectomy, end ileostomy, mucous fistula and repair of umbilical hernia for a colonic obstruction with pneumatosis of the right colon on 06/20/2021. 6. COVID-19 positive 7. UTI PLAN: -Consult CENTRIFUGAL EXTRACTOR OPERATOR service regarding patient's pelvic mass -Continue supportive care -Continue IV fluids -Continue carb consistent diet Thank you for this consultation Physician Wire Basket Maker note has been reviewed by physician. Signing provider agrees with the documented findings, assessment, and plan of care. Past Medical History Past Medical History: Heart Failure, Diabetes Mellitus, Hyperlipidemia, Hypertension, Osteoarthritis (OA), Renal Disease Additional Past Medical History / Comment(s): INSULIN- DIABETIC TYPE 2 , ACUTE KIDNEY FAILURE ,ILEOSTOMY,MUCOUS FISTULA, History of Any Multi-Drug Resistant Organisms: MRSA Year Discovered:: 11/18/18 MDRO Source:: URINE MRSA Past Surgical History: Section, Cholecystectomy Additional Past Surgical History / Comment(s): Bilateral cataract removals/lens implants, wrist surgery, ILEOSTOMY - JUN 2021 Past Anesthesia/Blood Transfusion Reactions: No Reported Reaction Additional Past Anesthesia/Blood Transfusion Reaction / Comm: Pt recieved blood in past without reaction (after childbirth) Past Psychological History: Anxiety, Depression Smoking Status: Former smoker Past Alcohol Use History: None Reported Past Drug Use History: None Reported - Past Family History Father Additional Family Medical History / Comment(s): Father from an industrial exposure at the age of 42 yrs. Mother Family Medical History: No Reported History Additional Family Medical History / Comment(s): Mother lived to be 95 yrs old. Medications and Allergies Home Medications Medication Instructions Recorded Confirmed Type FLUoxetine HCL [PROzac] 40 mg PO DAILY 10/18/18 07/29/21 History Metoprolol Tartrate [Lopressor] 50 mg PO BID 10/18/18 07/29/21 History Acetaminophen [Tylenol Extra 1,000 mg PO BID PRN 06/20/21 07/29/21 History Strength] Calcium Acetate [PhosLo] 667 mg PO TID-W/MEALS 06/20/21 07/29/21 History Pravastatin Sodium [Pravachol] 40 mg PO HS 06/20/21 07/29/21 History Apixaban [Eliquis] 2.5 mg PO BID 30 Days #60 tab 06/24/21 07/29/21 Rx Oxybutynin Chloride [Ditropan] 5 mg PO BID #0 06/30/21 07/29/21 Rx Insulin Lispro Protamin/Lispro See Protocol SQ AC-TID 07/29/21 07/29/21 History [humaLOG Mix 75-25 Kwikpen] amLODIPine [Norvasc] 10 mg PO DAILY 07/29/21 07/29/21 History Allergies Allergy/AdvReac Type Severity Reaction Status Date / Time codeine AdvReac Nausea & Verified 07/29/21 18:41 Vomiting Surgical - Exam Vital Signs Temp Pulse Resp BP Pulse Ox 97.6 F 93 20 111/57 92 L 07/29/21 13:15 07/29/21 13:15 07/29/21 13:15 07/29/21 13:15 07/29/21 13:15 Results - Labs 07/30/21 02:50 07/30/21 02:50 Abnormal Lab Results - Last 24 Hours (Table) 07/29/21 07/29/21 07/29/21 Range/Units 14:12 14:12 14:12 WBC 16.7 H (3.8-10.6) k/uL RBC (3.80-5.40) m/uL Hgb (11.4-16.0) gm/dL MCV (80.0-100.0) fL Neutrophils # 11.4 H (1.3-7.7) k/uL Monocytes # (0-1.0) k/uL Sodium 129 L (137-145) mmol/L Potassium 6.0 H (3.5-5.1) mmol/L Chloride 96 L (98-107) mmol/L Carbon Dioxide 13 L (22-30) mmol/L BUN 100 H (7-17) mg/dL Creatinine 5.41 H (0.52-1.04) mg/dL Glucose 137 H (74-99) mg/dL POC Glucose (mg/dL) (75-99) mg/dL Calcium (8.4-10.2) mg/dL Alkaline Phosphatase 193 H (38-126) U/L Troponin I (0.000-0.034) ng/mL Urine Appearance Cloudy H (Clear) Urine Protein 2+ H (Negative) Urine Blood Moderate H (Negative) Ur Leukocyte Esterase Large H (Negative) Urine RBC 42 H (0-5) /hpf Urine WBC >182 H (0-5) /hpf Urine WBC Clumps Moderate H (None) /hpf Urine Bacteria Moderate H (None) /hpf Coronavirus (PCR) (Not Detectd) 07/29/21 07/29/21 07/29/21 Range/Units 14:12 14:12 17:17 WBC (3.8-10.6) k/uL RBC (3.80-5.40) m/uL Hgb (11.4-16.0) gm/dL MCV (80.0-100.0) fL Neutrophils # (1.3-7.7) k/uL Monocytes # (0-1.0) k/uL Sodium (137-145) mmol/L Potassium (3.5-5.1) mmol/L Chloride (98-107) mmol/L Carbon Dioxide (22-30) mmol/L BUN (7-17) mg/dL Creatinine (0.52-1.04) mg/dL Glucose (74-99) mg/dL POC Glucose (mg/dL) 225 H (75-99) mg/dL Calcium (8.4-10.2) mg/dL Alkaline Phosphatase (38-126) U/L Troponin I 0.044 H* (0.000-0.034) ng/mL Urine Appearance (Clear) Urine Protein (Negative) Urine Blood (Negative) Ur Leukocyte Esterase (Negative) Urine RBC (0-5) /hpf Urine WBC (0-5) /hpf Urine WBC Clumps (None) /hpf Urine Bacteria (None) /hpf Coronavirus (PCR) Detected A (Not Detectd) 07/29/21 07/29/21 07/29/21 Range/Units 17:31 22:28 22:28 WBC (3.8-10.6) k/uL RBC (3.80-5.40) m/uL Hgb (11.4-16.0) gm/dL MCV (80.0-100.0) fL Neutrophils # (1.3-7.7) k/uL Monocytes # (0-1.0) k/uL Sodium 133 L (137-145) mmol/L Potassium (3.5-5.1) mmol/L Chloride (98-107) mmol/L Carbon Dioxide 13 L (22-30) mmol/L BUN 95 H (7-17) mg/dL Creatinine 4.59 H (0.52-1.04) mg/dL Glucose 113 H (74-99) mg/dL POC Glucose (mg/dL) (75-99) mg/dL Calcium 7.9 L (8.4-10.2) mg/dL Alkaline Phosphatase (38-126) U/L Troponin I 0.039 H* 0.042 H* (0.000-0.034) ng/mL Urine Appearance (Clear) Urine Protein (Negative) Urine Blood (Negative) Ur Leukocyte Esterase (Negative) Urine RBC (0-5) /hpf Urine WBC (0-5) /hpf Urine WBC Clumps (None) /hpf Urine Bacteria (None) /hpf Coronavirus (PCR) (Not Detectd) 07/29/21 07/30/21 07/30/21 Range/Units 23:14 02:50 02:50 WBC 14.4 H (3.8-10.6) k/uL RBC 3.50 L (3.80-5.40) m/uL Hgb 11.0 L (11.4-16.0) gm/dL MCV 100.1 H (80.0-100.0) fL Neutrophils # 9.5 H (1.3-7.7) k/uL Monocytes # 1.1 H (0-1.0) k/uL Sodium 132 L (137-145) mmol/L Potassium (3.5-5.1) mmol/L Chloride (98-107) mmol/L Carbon Dioxide 13 L (22-30) mmol/L BUN 91 H (7-17) mg/dL Creatinine 4.26 H (0.52-1.04) mg/dL Glucose (74-99) mg/dL POC Glucose (mg/dL) 121 H (75-99) mg/dL Calcium 7.6 L (8.4-10.2) mg/dL Alkaline Phosphatase (38-126) U/L Troponin I (0.000-0.034) ng/mL Urine Appearance (Clear) Urine Protein (Negative) Urine Blood (Negative) Ur Leukocyte Esterase (Negative) Urine RBC (0-5) /hpf Urine WBC (0-5) /hpf Urine WBC Clumps (None) /hpf Urine Bacteria (None) /hpf Coronavirus (PCR) (Not Detectd) 07/30/21 Range/Units 11:56 WBC (3.8-10.6) k/uL RBC (3.80-5.40) m/uL Hgb (11.4-16.0) gm/dL MCV (80.0-100.0) fL Neutrophils # (1.3-7.7) k/uL Monocytes # (0-1.0) k/uL Sodium (137-145) mmol/L Potassium (3.5-5.1) mmol/L Chloride (98-107) mmol/L Carbon Dioxide (22-30) mmol/L BUN (7-17) mg/dL Creatinine (0.52-1.04) mg/dL Glucose (74-99) mg/dL POC Glucose (mg/dL) 146 H (75-99) mg/dL Calcium (8.4-10.2) mg/dL Alkaline Phosphatase (38-126) U/L Troponin I (0.000-0.034) ng/mL Urine Appearance (Clear) Urine Protein (Negative) Urine Blood (Negative) Ur Leukocyte Esterase (Negative) Urine RBC (0-5) /hpf Urine WBC (0-5) /hpf Urine WBC Clumps (None) /hpf Urine Bacteria (None) /hpf Coronavirus (PCR) (Not Detectd) Microbiology - Last 24 Hours (Table) 07/29/21 14:12 Urine Culture - Preliminary Urine,Voided Diabetes panel 07/29/21 07/29/21 07/30/21 Range/Units 14:12 22:28 02:50 Sodium 129 L 133 L 132 L (137-145) mmol/L Potassium 6.0 H 4.8 4.4 (3.5-5.1) mmol/L Chloride 96 L 105 104 (98-107) mmol/L Carbon Dioxide 13 L 13 L 13 L (22-30) mmol/L BUN 100 H 95 H 91 H (7-17) mg/dL Creatinine 5.41 H 4.59 H 4.26 H (0.52-1.04) mg/dL Glucose 137 H 113 H 92 (74-99) mg/dL Calcium 9.2 7.9 L 7.6 L (8.4-10.2) mg/dL AST 26 (14-36) U/L ALT 12 (4-34) U/L Alkaline Phosphatase 193 H (38-126) U/L Total Protein 7.4 (6.3-8.2) g/dL Albumin 3.6 (3.5-5.0) g/dL Calcium panel 07/29/21 07/29/21 07/30/21 Range/Units 14:12 22:28 02:50 Calcium 9.2 7.9 L 7.6 L (8.4-10.2) mg/dL Albumin 3.6 (3.5-5.0) g/dL Pituitary panel 07/29/21 07/29/21 07/30/21 Range/Units 14:12 22:28 02:50 Sodium 129 L 133 L 132 L (137-145) mmol/L Potassium 6.0 H 4.8 4.4 (3.5-5.1) mmol/L Chloride 96 L 105 104 (98-107) mmol/L Carbon Dioxide 13 L 13 L 13 L (22-30) mmol/L BUN 100 H 95 H 91 H (7-17) mg/dL Creatinine 5.41 H 4.59 H 4.26 H (0.52-1.04) mg/dL Glucose 137 H 113 H 92 (74-99) mg/dL Calcium 9.2 7.9 L 7.6 L (8.4-10.2) mg/dL Adrenal panel 07/29/21 07/29/21 07/30/21 Range/Units 14:12 22:28 02:50 Sodium 129 L 133 L 132 L (137-145) mmol/L Potassium 6.0 H 4.8 4.4 (3.5-5.1) mmol/L Chloride 96 L 105 104 (98-107) mmol/L Carbon Dioxide 13 L 13 L 13 L (22-30) mmol/L BUN 100 H 95 H 91 H (7-17) mg/dL Creatinine 5.41 H 4.59 H 4.26 H (0.52-1.04) mg/dL Glucose 137 H 113 H 92 (74-99) mg/dL Calcium 9.2 7.9 L 7.6 L (8.4-10.2) mg/dL Total Bilirubin 0.3 (0.2-1.3) mg/dL AST 26 (14-36) U/L ALT 12 (4-34) U/L Alkaline Phosphatase 193 H (38-126) U/L Total Protein 7.4 (6.3-8.2) g/dL Albumin 3.6 (3.5-5.0) g/dL <Arash Bailey - Last Filed: 07/31/21 12:19> History of Present Illness History of present illness: As above. Patient was seen yesterday. Clinically patient seemed to be doing fairly well. No vomiting. Some nausea. She never saw gynecology after our recent endoscopy. I consulted Dr. Baez. She will be seeing her in the next 24-48 hours. Surgical - Exam Vital Signs Temp Pulse Resp BP Pulse Ox 97.6 F 93 20 111/57 92 L 07/29/21 13:15 07/29/21 13:15 07/29/21 13:15 07/29/21 13:15 07/29/21 13:15 Results - Labs 07/30/21 02:50 07/31/21 11:11 Abnormal Lab Results - Last 24 Hours (Table) 07/30/21 07/30/21 07/31/21 Range/Units 16:46 20:30 06:10 Sodium (137-145) mmol/L Carbon Dioxide (22-30) mmol/L BUN (7-17) mg/dL Creatinine (0.52-1.04) mg/dL Glucose (74-99) mg/dL POC Glucose (mg/dL) 234 H 318 H 216 H (75-99) mg/dL 07/31/21 07/31/21 Range/Units 11:11 11:22 Sodium 132 L (137-145) mmol/L Carbon Dioxide 16 L (22-30) mmol/L BUN 78 H (7-17) mg/dL Creatinine 3.80 H (0.52-1.04) mg/dL Glucose 176 H (74-99) mg/dL POC Glucose (mg/dL) 209 H (75-99) mg/dL Microbiology - Last 24 Hours (Table) 07/29/21 17:31 Blood Culture - Preliminary Blood No Growth after 24 hours 07/29/21 14:12 Urine Culture - Preliminary Urine,Voided Gram Neg Bacilli Diabetes panel 07/31/21 Range/Units 11:11 Sodium 132 L (137-145) mmol/L Potassium 4.6 (3.5-5.1) mmol/L Chloride 100 (98-107) mmol/L Carbon Dioxide 16 L (22-30) mmol/L BUN 78 H (7-17) mg/dL Creatinine 3.80 H (0.52-1.04) mg/dL Glucose 176 H (74-99) mg/dL Calcium 8.5 (8.4-10.2) mg/dL Calcium panel 07/31/21 Range/Units 11:11 Calcium 8.5 (8.4-10.2) mg/dL Pituitary panel 07/31/21 Range/Units 11:11 Sodium 132 L (137-145) mmol/L Potassium 4.6 (3.5-5.1) mmol/L Chloride 100 (98-107) mmol/L Carbon Dioxide 16 L (22-30) mmol/L BUN 78 H (7-17) mg/dL Creatinine 3.80 H (0.52-1.04) mg/dL Glucose 176 H (74-99) mg/dL Calcium 8.5 (8.4-10.2) mg/dL Adrenal panel 07/31/21 Range/Units 11:11 Sodium 132 L (137-145) mmol/L Potassium 4.6 (3.5-5.1) mmol/L Chloride 100 (98-107) mmol/L Carbon Dioxide 16 L (22-30) mmol/L BUN 78 H (7-17) mg/dL Creatinine 3.80 H (0.52-1.04) mg/dL Glucose 176 H (74-99) mg/dL Calcium 8.5 (8.4-10.2) mg/dL
--- NOTE | 2021-07-30 15:08 | P.PN ---
Subjective Progress Note Date: 07/30/21 HISTORY OF PRESENT ILLNESS 80-year-old female one of Dr. Sanchez's patient with past medical history of CAD, hypertension, hyperlipidemia, recurrent urinary tract infection, who was hospitalized recently for recurrent abdominal pain and distention ended up going for Sigmoidoscopy and biopsy patient had obstruction ended up going for surgery with Dr. Leo paniagua in 2 weeks ago and was apparently discharged to [facility] on the [place] where patient spent up till the last few days. She presented to the emergency department today with worsening weakness fatigue and worsening symptoms. When she was in the hospital last time had right colectomy and ileostomy with repair of umbilical hernia had some exposure to COVID-19 in the hospital and correction as well. Patient being very sick today ended up coming to the emergency department was seen and evaluated surprisingly her urine was very positive her potassium was 6.0, BUN was 100 with creatinine of 5.41 white blood cell was 16.7 with left shifted troponin was mildly elevated UA and culture were positive and COVID-19 was positive. With the multi medical problem patient will be hospitalized will be seen nephrology, infectious disease, issue clerk possibly cardiology. Also we'll consult with Dr. gipson to make sure this is not a complication related to surgery. 07/30: Patient has been afebrile, heart rate 78, blood pressure 102/62, pulse ox 100% on 2 L nasal cannula. Repeat blood work revealed WBC 14.4, hemoglobin 11, platelet count 336. Sodium 132, potassium 4.4, chloride 104, CO2 13, BUN 91 and creatinine 4.26. Blood sugars are running between 96 and 121. Urine culture and blood culture in progress. Consults in place for nephrology, pulmonary medicine and general surgery. She and started on Zosyn. Patient is currently not on oxygen. She has output from ostomy. She does complain of decreased appetite. Discussed discharge plan with the patient and she would like to go to [facility] for subacute rehab for which social work is following. REVIEW OF SYSTEMS Constitutional: No fever, no chills, no night sweats. No weight change. No weakness, fatigue or lethargy. No daytime sleepiness. Slightly confused does not look in any respiratory distress. EENT: No headache. No blurred vision or double vision, no loss of vision. No loss of Hearing, no ringing in the ears, no dizziness. No nasal drainage or congestion. No epistaxis. No sore throat. Lungs: No shortness of breath, cough, no sputum production. No wheezing. Cardiovascular: Mild PND and orthopnea and no chest pain slight edema of the lower extremity mild palpitation with exertion. Abdominal: Significant distention with mild abdominal discomfort more than pain with significant nausea vomiting positive an episode of large bowel movement at the time with no blood in it. Significant decrease in appetite. Genitourinary: No dysuria, increased frequency, urgency. No urinary retention. Decrease urine output. Musculoskeletal: No myalgias. No muscle weakness, no gait dysfunction, no frequent falls. No back pain. No neck pain. Integumentary: No wounds, no lesions. No rash or pruritus. No unusual br uising. No change in hair or nails. Neurologic: No motor deficit visualized weakness had slight change mental status. Psychiatric: No depression. No anxiety. No mood swings. Endocrine: No abnormal blood sugars. No weight change. No excessive sweating or thirst. No cold intolerance. PHYSICAL EXAMINATION Gen: This is an elderly frail appearing 80-year-old female, resting in bed in no acute distress. No oxygen in place. HEENT: Head is atraumatic, normocephalic. Pupils equal, round. Sclerae is anicteric. NECK: Supple. No JVD. No lymphadenopathy. No thyromegaly. LUNGS: Decreased breath some bilateral rhonchi and mild expiratory wheezes. HEART: Irregular rate and rhythm. Monitor atrial fibrillation rate controlled. ABDOMEN: Abdomen soft, no rebound or rigidity. 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 Beckett catheter draining nicolette urine EXTREMITIES: No pedal edema. No calf tenderness. NEUROLOGICAL: Patient is awake, alert with slight confusion. Cranial nerves 2 through 12 are grossly intact. ASSESSMENT AND PLAN 1 acute respiratory failure: Secondary to COVID-19 pneumonitis, sepsis, acute kidney injury and recent history of bowel obstruction. Treat underlying disease watch symptoms carefully repeat BUN/creatinine 24 hours continue high flow oxygen. 2. acute kidney failure: Secondary to acute tubular necrosis and hypoperfusion. The patient's current symptoms until hydration with the patient be seen nephrology if no improvement might require dialysis. 3. sepsis: Most likely from UTI infection also she had COVID-19. Continue fluid resuscitation and supportive care. 4. UTI. Culture is in progress. Patient started on Zosyn. 5 severe hyperkalemia with potassium of 6.0. Status post Kayexalate, continue to monitor. 6 recent history of bowel obstruction post right sided colectomy partial resection consult general surgery again to see if there is any complication specially with the current lab value. 7 recurrent abdominal pain was secondary to ischemic colitis and early perforation s/p surgery on previous admission. Consult Dr. Bailey. 8 history of congestive heart failure. Control metoprolol. 9 type 2 diabetes: Has been on NovoLog continue Accu-Chek sliding scales coverage for now hold off on any long-acting insulin. 10 acute kidney injury with chronic kidney disease: With creatinine much worse at this point continue hydration repeat CMP. 11 chronic neuropathy. 12. Metabolic acidosis secondary to renal failure. Nephrology consult, bicarb drip. 13. Hyperlipidemia. 14. chronic edema. 15. COPD. 16. DVT prophylaxis. Eliquis. 17. GI prophylaxis: Patient be on pantoprazole po. CODE STATUS: Full code. DISCHARGE PLAN [facility] for subacute rehab Impression and plan of care have been directed as dictated by the signing physician. Thais Scott nurse practitioner acting as scribe for signing physician. Objective - Vital Signs Vital signs: Vital Signs Temp 97.7 F 07/30/21 04:10 Pulse 78 07/30/21 04:10 Resp 18 07/30/21 04:10 BP 102/62 07/30/21 04:10 Pulse Ox 100 07/30/21 04:10 Intake & Output 07/29/21 07/30/21 07/30/21 18:59 06:59 18:59 Output Total 700 550 Balance -700 -550 Weight 73.936 kg 73.936 kg Output: Urine 300 300 Straight 100 Stool 400 250 Other: Voiding Method Indwelling Catheter - Labs CBC & Chem 7: 07/30/21 02:50 07/30/21 02:50 Labs: Abnormal Lab Results - Last 24 Hours (Table) 07/29/21 07/29/21 07/29/21 Range/Units 14:12 14:12 14:12 WBC 16.7 H (3.8-10.6) k/uL RBC (3.80-5.40) m/uL Hgb (11.4-16.0) gm/dL MCV (80.0-100.0) fL Neutrophils # 11.4 H (1.3-7.7) k/uL Monocytes # (0-1.0) k/uL Sodium 129 L (137-145) mmol/L Potassium 6.0 H (3.5-5.1) mmol/L Chloride 96 L (98-107) mmol/L Carbon Dioxide 13 L (22-30) mmol/L BUN 100 H (7-17) mg/dL Creatinine 5.41 H (0.52-1.04) mg/dL Glucose 137 H (74-99) mg/dL POC Glucose (mg/dL) (75-99) mg/dL Calcium (8.4-10.2) mg/dL Alkaline Phosphatase 193 H (38-126) U/L Troponin I (0.000-0.034) ng/mL Urine Appearance Cloudy H (Clear) Urine Protein 2+ H (Negative) Urine Blood Moderate H (Negative) Ur Leukocyte Esterase Large H (Negative) Urine RBC 42 H (0-5) /hpf Urine WBC >182 H (0-5) /hpf Urine WBC Clumps Moderate H (None) /hpf Urine Bacteria Moderate H (None) /hpf Coronavirus (PCR) (Not Detectd) 07/29/21 07/29/21 07/29/21 Range/Units 14:12 14:12 17:17 WBC (3.8-10.6) k/uL RBC (3.80-5.40) m/uL Hgb (11.4-16.0) gm/dL MCV (80.0-100.0) fL Neutrophils # (1.3-7.7) k/uL Monocytes # (0-1.0) k/uL Sodium (137-145) mmol/L Potassium (3.5-5.1) mmol/L Chloride (98-107) mmol/L Carbon Dioxide (22-30) mmol/L BUN (7-17) mg/dL Creatinine (0.52-1.04) mg/dL Glucose (74-99) mg/dL POC Glucose (mg/dL) 225 H (75-99) mg/dL Calcium (8.4-10.2) mg/dL Alkaline Phosphatase (38-126) U/L Troponin I 0.044 H* (0.000-0.034) ng/mL Urine Appearance (Clear) Urine Protein (Negative) Urine Blood (Negative) Ur Leukocyte Esterase (Negative) Urine RBC (0-5) /hpf Urine WBC (0-5) /hpf Urine WBC Clumps (None) /hpf Urine Bacteria (None) /hpf Coronavirus (PCR) Detected A (Not Detectd) 07/29/21 07/29/21 07/29/21 Range/Units 17:31 22:28 22:28 WBC (3.8-10.6) k/uL RBC (3.80-5.40) m/uL Hgb (11.4-16.0) gm/dL MCV (80.0-100.0) fL Neutrophils # (1.3-7.7) k/uL Monocytes # (0-1.0) k/uL Sodium 133 L (137-145) mmol/L Potassium (3.5-5.1) mmol/L Chloride (98-107) mmol/L Carbon Dioxide 13 L (22-30) mmol/L BUN 95 H (7-17) mg/dL Creatinine 4.59 H (0.52-1.04) mg/dL Glucose 113 H (74-99) mg/dL POC Glucose (mg/dL) (75-99) mg/dL Calcium 7.9 L (8.4-10.2) mg/dL Alkaline Phosphatase (38-126) U/L Troponin I 0.039 H* 0.042 H* (0.000-0.034) ng/mL Urine Appearance (Clear) Urine Protein (Negative) Urine Blood (Negative) Ur Leukocyte Esterase (Negative) Urine RBC (0-5) /hpf Urine WBC (0-5) /hpf Urine WBC Clumps (None) /hpf Urine Bacteria (None) /hpf Coronavirus (PCR) (Not Detectd) 07/29/21 07/30/21 07/30/21 Range/Units 23:14 02:50 02:50 WBC 14.4 H (3.8-10.6) k/uL RBC 3.50 L (3.80-5.40) m/uL Hgb 11.0 L (11.4-16.0) gm/dL MCV 100.1 H (80.0-100.0) fL Neutrophils # 9.5 H (1.3-7.7) k/uL Monocytes # 1.1 H (0-1.0) k/uL Sodium 132 L (137-145) mmol/L Potassium (3.5-5.1) mmol/L Chloride (98-107) mmol/L Carbon Dioxide 13 L (22-30) mmol/L BUN 91 H (7-17) mg/dL Creatinine 4.26 H (0.52-1.04) mg/dL Glucose (74-99) mg/dL POC Glucose (mg/dL) 121 H (75-99) mg/dL Calcium 7.6 L (8.4-10.2) mg/dL Alkaline Phosphatase (38-126) U/L Troponin I (0.000-0.034) ng/mL Urine Appearance (Clear) Urine Protein (Negative) Urine Blood (Negative) Ur Leukocyte Esterase (Negative) Urine RBC (0-5) /hpf Urine WBC (0-5) /hpf Urine WBC Clumps (None) /hpf Urine Bacteria (None) /hpf Coronavirus (PCR) (Not Detectd) Microbiology - Last 24 Hours (Table) 07/29/21 14:12 Urine Culture - Preliminary Urine,Voided
--- NOTE | 2021-07-30 15:16 | US ---
EXAMINATION TYPE: US kidneys/renal and bladder DATE OF EXAM: 07/30/2021 COMPARISON: CT abdomen and pelvis June 20, 2021 CLINICAL HISTORY: rf. abnormal labs. Covid +. Bladder shelton. EXAM MEASUREMENTS: Right Kidney: 8.2 x 3.9 x 4.2 cm Left Kidney: 9.6 x 4.4 x 4.5 cm Right Kidney: Echogenic in appearance. Small in size. Left Kidney: No hydronephrosis or masses seen, limited visualization due to patient position. Bladder: Shelton visualized Bilateral Jets not seen due to shelton Right kidney is smaller in size with increased cortical echogenicity. Shelton catheter decompresses seamus dder. Increased cortical echogenicity left kidney. No concerning renal masses present on images saved . No hydronephrosis seen bilaterally. IMPRESSION: No hydronephrosis noted bilaterally.
[2021-07-30 16:47] LABS: Glucose,Whole Blood 234 mg/dL (75-99)
[2021-07-30] MEDS: DEXTROSE 5% IN WATER 1,000 ML with SODIUM BICARB (1 MEQ/ML) 150 ML IV SCH (18:12)
--- NOTE | 2021-07-30 18:38 | CONS ---
CONSULTATION REASON FOR CONSULT: Renal failure. HISTORY OF PRESENT ILLNESS: The patient is a 80-year-old female. She was admitted to the hospital yesterday with complaints of increasing weakness and lethargy. Patient tested positive for Covid 19. She is currently voiding and has no trouble going. Patient recently had right colectomy and ileostomy with repair of umbilical hernia during her hospitalization last month. Serum creatinine was 5.4 on admission down to 4.26 now. Previous creatinine 1.3 on 07/02/2021. Blood pressure has been low with systolic around 100 mmHg and another reading of 82 mmHg on yesterday 07/29/2021. Home medications do not include any nonsteroidal anti-inflammatory agents or JUAN inhibitors. PAST MEDICAL HISTORY: Significant for CHF, type 2 diabetes, hyperlipidemia, hypertension, osteoarthritis, history of ileostomy, colectomy, umbilical hernia repair, , cholecystectomy, cataract surgeries. SOCIAL HISTORY: Patient is a former smoker. No history of drug abuse or alcohol abuse. ALLERGIES: INCLUDE CODEINE. MEDICATIONS: Prior to admission included Prozac, Lopressor, PhosLo, Pravachol, Eliquis, Ditropan, Norvasc. EXAMINATION: The patient is comfortable, not in any acute distress. Blood pressure was 108/52, heart rate 92 per minute. She is afebrile. Examination of the lower extremities shows no significant edema. REPORTING MANAGER exam grossly intact. Lungs and heart are not examined. LAB: Show sodium 132, potassium 4.4. CO2 is 13, BUN 91, creatinine 4.26. ASSESSMENT: 1. Acute kidney injury most likely acute tubular necrosis associated with hypotension, hypoperfusion, rule out obstruction. Check ultrasound of the kidneys. UA shows significant pyuria. 2. Severe metabolic acidosis associated with renal failure. 3. Pyuria rule out urinary tract infection, maintained on empiric antibiotics. 4. Recent colectomy and ileostomy with umbilical hernia repair. PLAN: Add IV bicarb. Continue empiric antibiotics. Follow up on urine cultures and repeat labs in a.m. Check ultrasound of the kidneys. Thank you for this consultation. We will continue to follow the patient with you during her hospitalization. MMODL / IJN: [id number] /
[2021-07-30 20:32] LABS: Glucose,Whole Blood 318 mg/dL (75-99)
[2021-07-30] MEDS: PRAVASTATIN SODIUM 40 MG TAB PO SCH (21:16)
[2021-07-31 06:11] LABS: Glucose,Whole Blood 216 mg/dL (75-99)
[2021-07-31] MEDS: PANTOPRAZOLE 40 MG TABLET PO SCH (06:24)
[2021-07-31] MEDS: CALCIUM ACETATE 667 MG TAB PO SCH ×3 (06:24→17:18)
[2021-07-31] MEDS: INSULIN ASPART (NovoLOG) 100 UNIT/ML VIAL SQ SCH ×4 (06:24→20:31)
[2021-07-31] MEDS: FLUoxetine HCL 20 MG CAP PO SCH (08:27)
[2021-07-31] MEDS: ASCORBIC ACID 500 MG TAB PO SCH (08:27)
[2021-07-31] MEDS: ZINC SULFATE 220 MG CAP PO SCH (08:27)
[2021-07-31] MEDS: dexAMETHasone 2 MG TAB PO SCH (08:27)
[2021-07-31] MEDS: amLODIPine 10 MG TAB PO SCH (08:27)
[2021-07-31] MEDS: METOPROLOL TARTRATE 50 MG TAB PO SCH ×2 (08:27→20:32)
[2021-07-31] MEDS: APIXABAN 2.5 MG TABLET PO SCH ×2 (08:27→20:32)
[2021-07-31] MEDS: OXYBUTYNIN CHLORIDE 5 MG TAB PO SCH ×2 (08:27→20:32)
[2021-07-31] MEDS: PIPERACILLIN-TAZOBACTAM 3.375 GM in SODIUM CHLORIDE 0.9% 100 ML IVPB SCH ×2 (08:28→20:31)
[2021-07-31 11:24] LABS: Glucose,Whole Blood 209 mg/dL (75-99)
[2021-07-31] MEDS ORDERED: ONDANSETRON 4 MG/2 ML VIAL IVP PRN ×2 (11:29→11:31)
--- NOTE | 2021-07-31 11:30 | P.PN ---
<YsabelMarisa kirby - Last Filed: 07/31/21 11:25> Subjective Progress Note Date: 07/31/21 CHIEF COMPLAINT: Weakness HISTORY OF PRESENT ILLNESS: Patient is sitting up at bedside chair. She does report some nausea. Denies any abdominal pain. She reports eating about half her omelette and some potatoes this morning. Her ostomy is functioning. She denies any vomiting. Afebrile. BMP pending PHYSICAL EXAM: VITAL SIGNS: Reviewed. GENERAL: Well-developed in no acute distress. HEENT: No sclera icterus. Extraocular movements grossly intact. Moist buccal mucosa. Head is atraumatic, normocephalic. ABDOMEN: Soft. Nondistended. Nontender. Ostomy on right abdomen with stool. NEUROLOGIC: Alert and oriented. Cranial nerves II through XII grossly intact. ASSESSMENT: 1. Weakness 2. Dehydration with acute kidney injury 3. Nausea 4. Pelvic mass noted on 07/15/[address] Bailey performed patient's flexible sigmoidoscopy 5. Status post exploratory laparotomy with right colectomy, end ileostomy, mucous fistula and repair of umbilical hernia for a colonic obstruction with pneumatosis of the right colon on 06/20/2021. 6. COVID-19 positive 7. UTI PLAN: -Awaiting TROUBLE SHOOTING MECHANIC service to evaluate patient regarding pelvic mass -Continue supportive care -Continue carb consistent diet -Add Zofran as needed for nausea Physician Desktop Support Technician note has been reviewed by physician. Signing provider agrees with the documented findings, assessment, and plan of care. Objective - Vital Signs Vital signs: Vital Signs Temp 96.8 F L 07/31/21 08:17 Pulse 83 07/31/21 08:17 Resp 20 07/31/21 08:17 BP 110/54 07/31/21 08:17 Pulse Ox 99 07/31/21 08:17 Intake & Output 07/30/21 07/31/21 07/31/21 18:59 06:59 18:59 Intake Total 265 218 Output Total 560 375 Balance -295 -375 218 Weight 76.5 kg Intake: Intake, IV Titration 100 Amount Piperacillin-Tazobactam 3 100 .375 gm In Sodium Chloride 0.9% 100 ml @ 25 mls/hr IVPB Q12HR [facility] Rx #:[id number] Oral 265 118 Output: Urine 200 250 Stool 360 125 Other: Voiding Method Indwelling Catheter Indwelling Catheter Indwelling Catheter - Labs CBC & Chem 7: 07/30/21 02:50 07/30/21 02:50 Labs: Abnormal Lab Results - Last 24 Hours (Table) 07/30/21 07/30/21 07/30/21 Range/Units 11:56 16:46 20:30 POC Glucose (mg/dL) 146 H 234 H 318 H (75-99) mg/dL 07/31/21 07/31/21 Range/Units 06:10 11:22 POC Glucose (mg/dL) 216 H 209 H (75-99) mg/dL Microbiology - Last 24 Hours (Table) 07/29/21 17:31 Blood Culture - Preliminary Blood No Growth after 24 hours 07/29/21 14:12 Urine Culture - Preliminary Urine,Voided Gram Neg Bacilli <Arash Bailey - Last Filed: 07/31/21 13:07> Subjective Patient seems to be doing better today. She seems to be tolerating her diet well. No nausea or vomiting. She was seen by gynecology. Patient's creatinine level remains elevated. Ultrasound shows no evidence of hydronephrosis. Continue IV hydration. Continue diet as tolerated. Will follow. Objective - Vital Signs Vital signs: Vital Signs Temp 96.9 F L 07/31/21 11:55 Pulse 71 07/31/21 11:55 Resp 20 07/31/21 11:55 BP 104/60 07/31/21 11:55 Pulse Ox 99 07/31/21 11:55 Intake & Output 07/30/21 07/31/21 07/31/21 18:59 06:59 18:59 Intake Total 265 218 Output Total 560 375 Balance -295 -375 218 Weight 76.5 kg Intake: Intake, IV Titration 100 Amount Piperacillin-Tazobactam 3 100 .375 gm In Sodium Chloride 0.9% 100 ml @ 25 mls/hr IVPB Q12HR [facility] Rx #:[id number] Oral 265 118 Output: Urine 200 250 Stool 360 125 Other: Voiding Method Indwelling Catheter Indwelling Catheter Indwelling Catheter - Labs CBC & Chem 7: 07/30/21 02:50 07/31/21 11:11 Labs: Abnormal Lab Results - Last 24 Hours (Table) 07/30/21 07/30/21 07/31/21 Range/Units 16:46 20:30 06:10 Sodium (137-145) mmol/L Carbon Dioxide (22-30) mmol/L BUN (7-17) mg/dL Creatinine (0.52-1.04) mg/dL Glucose (74-99) mg/dL POC Glucose (mg/dL) 234 H 318 H 216 H (75-99) mg/dL 07/31/21 07/31/21 Range/Units 11:11 11:22 Sodium 132 L (137-145) mmol/L Carbon Dioxide 16 L (22-30) mmol/L BUN 78 H (7-17) mg/dL Creatinine 3.80 H (0.52-1.04) mg/dL Glucose 176 H (74-99) mg/dL POC Glucose (mg/dL) 209 H (75-99) mg/dL Microbiology - Last 24 Hours (Table) 07/29/21 17:31 Blood Culture - Preliminary Blood No Growth after 24 hours 07/29/21 14:12 Urine Culture - Preliminary Urine,Voided Gram Neg Bacilli
--- NOTE | 2021-07-31 11:47 | P.PN ---
Subjective Progress Note Date: 07/31/21 HISTORY OF PRESENT ILLNESS 80-year-old female one of Dr. Sanchez's patient with past medical history of CAD, hypertension, hyperlipidemia, recurrent urinary tract infection, who was hospitalized recently for recurrent abdominal pain and distention ended up going for Sigmoidoscopy and biopsy patient had obstruction ended up going for surgery with Dr. Leo paniagua in 2 weeks ago and was apparently discharged to [facility] on the [place] where patient spent up till the last few days. She presented to the emergency department today with worsening weakness fatigue and worsening symptoms. When she was in the hospital last time had right colectomy and ileostomy with repair of umbilical hernia had some exposure to COVID-19 in the hospital and custodial as well. Patient being very sick today ended up coming to the emergency department was seen and evaluated surprisingly her urine was very positive her potassium was 6.0, BUN was 100 with creatinine of 5.41 white blood cell was 16.7 with left shifted troponin was mildly elevated UA and culture were positive and COVID-19 was positive. With the multi medical problem patient will be hospitalized will be seen nephrology, infectious disease, central supply technician possibly cardiology. Also we'll consult with Dr. gipson to make sure this is not a complication related to surgery. 07/30: Patient has been afebrile, heart rate 78, blood pressure 102/62, pulse ox 100% on 2 L nasal cannula. Repeat blood work revealed WBC 14.4, hemoglobin 11, platelet count 336. Sodium 132, potassium 4.4, chloride 104, CO2 13, BUN 91 and creatinine 4.26. Blood sugars are running between 96 and 121. Urine culture and blood culture in progress. Consults in place for nephrology, pulmonary medicine and general surgery. She and started on Zosyn. Patient is currently not on oxygen. She has output from ostomy. She does complain of decreased appetite. Discussed discharge plan with the patient and she would like to go to [facility] for subacute rehab for which social work is following. 07/31: Patient is complaining of nausea today and Zofran added. Patient has been afebrile, heart rate 83, blood pressure 110/54, pulse ox 99% on room air. Blood sugars are running in the low 200s to 318, a will be resumed back on Humalog 75/25 10 units 3 times daily with meals and continue NovoLog scale. We've added in consult for Dr. Bowen for possible inpatient rehab otherwise subacute rehab would be appropriate but patient verbalizes that she doesn't really want to O2 subacute rehab. Social work and case management are following the patient. Stat lab work has been ordered today and repeat lab work ordered for tomorrow. REVIEW OF SYSTEMS Constitutional: No fever, no chills, no night sweats. No weight change. No weakness, fatigue or lethargy. No daytime sleepiness. Slightly confused does not look in any respiratory distress. EENT: No headache. No blurred vision or double vision, no loss of vision. No loss of Hearing, no ringing in the ears, no dizziness. No nasal drainage or congestion. No epistaxis. No sore throat. Lungs: No shortness of breath, cough, no sputum production. No wheezing. Cardiovascular: Mild PND and orthopnea and no chest pain slight edema of the lower extremity mild palpitation with exertion. Abdominal: Significant distention with mild abdominal discomfort more than pain with significant nausea vomiting positive an episode of large bowel movement at the time with no blood in it. Significant decrease in appetite. Genitourinary: No dysuria, increased frequency, urgency. No urinary retention. Decrease urine output. Musculoskeletal: No myalgias. No muscle weakness, no gait dysfunction, no frequent falls. No back pain. No neck pain. Integumentary: No wounds, no lesions. No rash or pruritus. No unusual bruising. No change in hair or nails. Neurologic: No motor deficit visualized weakness had slight change mental status. Psychiatric: No depression. No anxiety. No mood swings. Endocrine: Noted abnormal blood sugars. No weight change. No excessive sweating or thirst. No cold intolerance. PHYSICAL EXAMINATION Gen: This is an elderly frail appearing 80-year-old female, resting in bed in no acute distress. No oxygen in place. HEENT: Head is atraumatic, normocephalic. Pupils equal, round. Sclerae is anicteric. NECK: Supple. No JVD. No lymphadenopathy. No thyromegaly. LUNGS: Decreased breath some bilateral rhonchi and mild expiratory wheezes. HEART: Irregular rate and rhythm. Monitor atrial fibrillation rate controlled. ABDOMEN: Abdomen soft, no rebound or rigidity. 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 Beckett catheter draining nicolette urine EXTREMITIES: No pedal edema. No calf tenderness. NEUROLOGICAL: Patient is awake, alert with slight confusion. Cranial nerves 2 through 12 are grossly intact. ASSESSMENT AND PLAN 1 acute respiratory failure: Secondary to COVID-19 pneumonitis, sepsis, acute kidney injury and recent history of bowel obstruction. Treat underlying disease watch symptoms carefully repeat BUN/creatinine 24 hours continue high flow oxygen. 2. acute kidney failure: Secondary to acute tubular necrosis and hypoperfusion. The patient's current symptoms until hydration with the patient be seen nephrology if no improvement might require dialysis. 3. sepsis: Most likely from UTI infection also she had COVID-19. Continue flu id resuscitation and supportive care. 4. UTI. Culture is in progress. Patient started on Zosyn. 5 severe hyperkalemia with potassium of 6.0. Status post Kayexalate, continue to monitor. 6 recent history of bowel obstruction post right sided colectomy partial resection consult general surgery again to see if there is any complication specially with the current lab value. 7 recurrent abdominal pain was secondary to ischemic colitis and early perforation s/p surgery on previous admission. Consult Dr. Bailey. 8 history of congestive heart failure. Control metoprolol. 9 type 2 diabetes mellitus uncontrolled with hyperglycemia. Patient will be resumed back on Humalog 75/25 at 10 units with meals and continue NovoLog scale. 10 acute kidney injury with chronic kidney disease: With creatinine much worse at this point continue hydration repeat CMP. 11 chronic neuropathy. 12. Metabolic acidosis secondary to renal failure. Nephrology consult, bicarb drip. 13. Hyperlipidemia. 14. chronic edema. 15. COPD. 16. DVT prophylaxis. Eliquis. 17. GI prophylaxis: Patient be on pantoprazole po. CODE STATUS: Full code. DISCHARGE PLAN TBD, acute rehab or inpatient rehab, consult with Dr. Bowen Impression and plan of care have been directed as dictated by the signing physician. Thais Scott nurse practitioner acting as scribe for signing physician. Objective - Vital Signs Vital signs: Vital Signs Temp 96.8 F L 07/31/21 08:17 Pulse 83 07/31/21 08:17 Resp 20 07/31/21 08:17 BP 110/54 07/31/21 08:17 Pulse Ox 99 07/31/21 08:17 Intake & Output 07/30/21 07/31/21 07/31/21 18:59 06:59 18:59 Intake Total 265 218 Output Total 560 375 Balance -295 -375 218 Weight 76.5 kg Intake: Intake, IV Titration 100 Amount Piperacillin-Tazobactam 3 100 .375 gm In Sodium Chloride 0.9% 100 ml @ 25 mls/hr IVPB Q12HR [facility] Rx #:[id number] Oral 265 118 Output: Urine 200 250 Stool 360 125 Other: Voiding Method Indwelling Catheter Indwelling Catheter Indwelling Catheter - Labs CBC & Chem 7: 07/30/21 02:50 07/30/21 02:50 Labs: Abnormal Lab Results - Last 24 Hours (Table) 07/30/21 07/30/21 07/30/21 Range/Units 11:56 16:46 20:30 POC Glucose (mg/dL) 146 H 234 H 318 H (75-99) mg/dL 07/31/21 Range/Units 06:10 POC Glucose (mg/dL) 216 H (75-99) mg/dL Microbiology - Last 24 Hours (Table) 07/29/21 17:31 Blood Culture - Preliminary Blood No Growth after 24 hours 07/29/21 14:12 Urine Culture - Preliminary Urine,Voided Gram Neg Bacilli
--- NOTE | 2021-07-31 11:54 | P.CONS ---
History of Present Illness - Chief Complaint Medical debility - History of Present Illness I had the opportunity to see patient for inpatient rehab consultation with regard to medical debility. Patient admitted to [facility] July 15 with history of recent abdominal pain and treated by Dr. gipson Status post exploratory laparotomy with right colectomy, end ileostomy, mucous fistula and repair of umbilical hernia for a colonic obstruction with pneumatosis of the right colon on 06/20/2021. Patient was discharged to [facility]. Apparently readmitted with shortness of breath and Covid positive pneumonia. Seen by Dr. Anderson. PT and OT prescribed. Previous functional history as elicited from patient: 80-year-old left-handed white female is lives in one floor home with son and son's family. D [id number] does the cooking and laundry and they do the driving. Patient describes independent with own sponge bath and gait with [address] Sanchez. Denies tobacco or alcohol. Review of Systems Review of systems: ENT: Denies sneezes or discharge. Eyes: Denies discharge or photophobia. Cardiac: Denies chest pain or palpitation. Pulmonary: Mild to moderate shortness of breath. Breast: Denies discharge or lumps. Gastrointestinal: The ostomy. Genitourinary: Denies discharge or frequency. Musculoskeletal: Denies muscle or bone aches. Neurologic: Generalized weakness. Endocrine: Denies shakes or sweats. Oncology: Denies cancers. Dermatologic: Denies rash, itching, pruritus. ALLERGY/immunology: Denies sneezes, rashes. Past Medical History Past Medical History: Heart Failure, Diabetes Mellitus, Hyperlipidemia, Hypertension, Osteoarthritis (OA), Renal Disease Additional Past Medical History / Comment(s): INSULIN- DIABETIC TYPE 2 , ACUTE KIDNEY FAILURE ,ILEOSTOMY,MUCOUS FISTULA, History of Any Multi-Drug Resistant Organisms: MRSA Year Discovered:: 11/18/18 MDRO Source:: URINE MRSA Past Surgical History: Section, Cholecystectomy Additional Past Surgical History / Comment(s): Bilateral cataract removals/lens implants, wrist surgery, ILEOSTOMY - JUN 2021 Past Anesthesia/Blood Transfusion Reactions: No Reported Reaction Additional Past Anesthesia/Blood Transfusion Reaction / Comm: Pt recieved blood in past without reaction (after childbirth) Past Psychological History: Anxiety, Depression Smoking Status: Former smoker Past Alcohol Use History: None Reported Past Drug Use History: None Reported - Past Family History Father Additional Family Medical History / Comment(s): Father from an industrial exposure at the age of 42 yrs. Mother Family Medical History: No Reported History Additional Family Medical History / Comment(s): Mother lived to be 95 yrs old. Medications and Allergies Home Medications Medication Instructions Recorded Confirmed Type FLUoxetine HCL [PROzac] 40 mg PO DAILY 10/18/18 07/29/21 History Metoprolol Tartrate [Lopressor] 50 mg PO BID 10/18/18 07/29/21 History Acetaminophen [Tylenol Extra 1,000 mg PO BID PRN 06/20/21 07/29/21 History Strength] Calcium Acetate [PhosLo] 667 mg PO TID-W/MEALS 06/20/21 07/29/21 History Pravastatin Sodium [Pravachol] 40 mg PO HS 06/20/21 07/29/21 History Apixaban [Eliquis] 2.5 mg PO BID 30 Days #60 tab 06/24/21 07/29/21 Rx Oxybutynin Chloride [Ditropan] 5 mg PO BID #0 06/30/21 07/29/21 Rx Insulin Lispro Protamin/Lispro See Protocol SQ AC-TID 07/29/21 07/29/21 History [humaLOG Mix 75-25 Kwikpen] amLODIPine [Norvasc] 10 mg PO DAILY 07/29/21 07/29/21 History Allergies Allergy/AdvReac Type Severity Reaction Status Date / Time codeine AdvReac Nausea & Verified 07/29/21 18:41 Vomiting Physical Exam Vitals: Vital Signs Temp Pulse Resp BP Pulse Ox 07/31/21 08:17 96.8 F L 83 20 110/54 99 07/31/21 04:20 97.9 F 72 17 107/55 99 07/30/21 23:15 77 18 122/57 96 07/30/21 21:20 97.9 F 80 16 95/50 98 07/30/21 16:00 97.9 F 78 18 110/56 96 07/30/21 14:00 80 18 07/30/21 12:00 97.5 F L 92 18 108/52 96 Intake and Output 07/30/21 07/31/21 07/31/21 22:59 06:59 14:59 Intake Total 25 218 Output Total 360 375 Balance -335 -375 218 Intake: Intake, IV Titration 100 Amount Piperacillin-Tazobactam 3 100 .375 gm In Sodium Chloride 0.9% 100 ml @ 25 mls/hr IVPB Q12HR [facility] Rx #:[id number] Oral 25 118 Output: Urine 250 Stool 360 125 Other: Voiding Method Indwelling Catheter Indwelling Catheter Indwelling Catheter Weight 76.5 kg Skin: Atrophic, intact. General: Overweight build and comfortable appearance. Head: Normocephalic, atraumatic. Eyes: Symmetric. Pupils equal round. Ears: Symmetric. Hearing within normal limits. Mouth: Clear. Neck: Supple. Carotid without bruit. Cardiac: Regular rate and rhythm. Lungs: Clear anteriorly and posteriorly. Abdomen: Soft active nontender. Overweight. Extremities: Normal tone. Neurological: Mental status: Alert, cooperative, pleasant. Cranial nerves: Symmetric facial tone and trapezius. Motor: Active movement all 4 limbs. Arms about antigravity in legs less than antigravity. Sensation: Intact throughout. DTRs: Symmetric and equal throughout. Mobility: Requires assist for bed and functional mobility. Results CBC & Chem 7: 07/30/21 02:50 07/30/21 02:50 Labs: Abnormal Lab Results - Last 24 Hours (Table) 07/30/21 07/30/21 07/30/21 Range/Units 11:56 16:46 20:30 POC Glucose (mg/dL) 146 H 234 H 318 H (75-99) mg/dL 07/31/21 07/31/21 Range/Units 06:10 11:22 POC Glucose (mg/dL) 216 H 209 H (75-99) mg/dL Microbiology - Last 24 Hours (Table) 07/29/21 17:31 Blood Culture - Preliminary Blood No Growth after 24 hours 07/29/21 14:12 Urine Culture - Preliminary Urine,Voided Gram Neg Bacilli Assessment and Plan (1) ARF (acute renal failure) Current Visit: Yes Status: Acute Code(s): N17.9 - ACUTE KIDNEY FAILURE, UNSPECIFIED SNOMED Code(s): 01702541 (2) COVID-19 Current Visit: Yes Status: Acute Code(s): U07.1 - COVID-19 SNOMED Code(s): 162794524 (3) NSTEMI (non-ST elevated myocardial infarction) Current Visit: Yes Status: Acute Code(s): I21.4 - NON-ST ELEVATION (NSTEMI) MYOCARDIAL INFARCTION SNOMED Code(s): 30517710 (4) Acute abdominal pain Current Visit: No Status: Acute Code(s): R10.9 - UNSPECIFIED ABDOMINAL PAIN SNOMED Code(s): 859789309 Plan: Comments and plan: At this time PT and OT are prescribed. We'll follow therapie s with yourself. Rehab prognosis however currently guarded in would require 24/7 care multiple persons. Should begin to consider transfer back to [facility] when medically appropriate. I will follow closely with yourself for improvements in physical status such that consider inpatient rehab.
[2021-07-31 11:57] LABS: Calcium 8.5 mg/dL (8.4-10.2); Potassium 4.6 mmol/L (3.5-5.1)
[2021-07-31] MEDS: INSULN ASP PRT/INSULIN ASPART 100 UNIT/ML 10 ML VIAL SQ SCH ×2 (12:37→17:18)
--- NOTE | 2021-07-31 12:58 | P.OBCN ---
History of Present Illness Consult date: 08/06/21 Requesting physician: Arash Bailey Reason for consult: pelvic mass Chief complaint: Weakness, vomiting, cough History of present illness: This is a 80-year-old 5 para 5 woman who was admitted on 07/29/2021 with weakness, episodes of vomiting and cough. She was found to have a urinary tract infection, acute renal failure and to be COVID positive. Her recent medical history was significant for a bowel obstruction on 06/20/2021. At that time she underwent an exploratory laparotomy with right end ileostomy and umbilical hernia repair. Findings at the time of surgery were also concerning for an enlarged uterus and or pelvic mass that may be the source of the obstruction and concerning for a REFUSE LABORER malignancy. She underwent a flexible sigmoidoscopy on 07/15/2021 and rectal exam at that time was concerning for a possible pelvic mass. The patient today reports that she is feeling overall well but tired. She describes having ongoing light vaginal bleeding for many years. As far as she can recall she has not had a specific gynecologic evaluation for this. She denies a history in the past of pelvic malignancy, abnormal Pap smears or gynecologic surgeries other than section for pregnancies. Review of history there is a pelvic ultrasound dated 11/25/2020 which shows a uterus measuring 11.0 x 5.1 x 6.0 cm. The uterus is described as heterogeneous. The endometrial stripe was not well visualized. The adnexa were obstructed secondary to overlying bowel gas. Computed tomography scan dated 06/20/2021, and on "prominence" of the adnexal region with a possible right 3.5 cm ovarian cyst. On this admission she has undergone a abdominal ultrasound specifically to look at the kidneys. There are no abnormal kidney masses or hydronephrosis noted. Review of Systems Constitutional: Reports fatigue, Reports lethargy, Reports malaise, Reports weakness Breasts: absent: as per HPI Cardiovascular: Denies chest pain, Denies shortness of breath Respiratory: Reports cough Gastrointestinal: Denies abdominal pain, Denies heartburn, Denies nausea, Denies vomiting Genitourinary: Reports as per HPI, Reports abnormal vaginal bleeding, Reports hematuria, Reports incomplete emptying, Denies dysuria, Denies pelvic pain Menstruation: Reports postmenopausal Integumentary: Denies rash Hematologic/Lymphatic: Reports easy bleeding, Reports easy bruising Past Medical History Past Medical History: Heart Failure, Diabetes Mellitus, Hyperlipidemia, Hypertension, Osteoarthritis (OA), Renal Disease Additional Past Medical History / Comment(s): INSULIN- DIABETIC TYPE 2 , ACUTE KIDNEY FAILURE ,ILEOSTOMY,MUCOUS FISTULA, postmenopausal bleeding History of Any Multi-Drug Resistant Organisms: MRSA Year Discovered:: 11/18/18 MDRO Source:: URINE MRSA Past Surgical History: Section, Cholecystectomy Additional Past Surgical History / Comment(s): Bilateral cataract removals/lens implants, wrist surgery, ILEOSTOMY - JUN 2021 Past Anesthesia/Blood Transfusion Reactions: No Reported Reaction Additional Past Anesthesia/Blood Transfusion Reaction / Comm: Pt recieved blood in past without reaction (after childbirth) Past Psychological History: Anxiety, Depression Smoking Status: Former smoker Past Alcohol Use History: None Reported Past Drug Use History: None Reported - Past Family History Father Additional Family Medical History / Comment(s): Father from an industrial exposure at the age of 42 yrs. Mother Family Medical History: No Reported History Additional Family Medical History / Comment(s): Mother lived to be 95 yrs old. Medications and Allergies Home Medications Medication Instructions Recorded Confirmed Type FLUoxetine HCL [PROzac] 40 mg PO DAILY 10/18/18 07/29/21 History Metoprolol Tartrate [Lopressor] 50 mg PO BID 10/18/18 07/29/21 History Acetaminophen [Tylenol Extra 1,000 mg PO BID PRN 06/20/21 07/29/21 History Strength] Calcium Acetate [PhosLo] 667 mg PO TID-W/MEALS 06/20/21 07/29/21 History Pravastatin Sodium [Pravachol] 40 mg PO HS 06/20/21 07/29/21 History Apixaban [Eliquis] 2.5 mg PO BID 30 Days #60 tab 06/24/21 07/29/21 Rx Oxybutynin Chloride [Ditropan] 5 mg PO BID #0 06/30/21 07/29/21 Rx Insulin Lispro Protamin/Lispro See Protocol SQ AC-TID 07/29/21 07/29/21 History [humaLOG Mix 75-25 Kwikpen] amLODIPine [Norvasc] 10 mg PO DAILY 07/29/21 07/29/21 History Allergies Allergy/AdvReac Type Severity Reaction Status Date / Time codeine AdvReac Nausea & Verified 07/29/21 18:41 Vomiting Exam Vital Signs Temp Pulse Resp BP Pulse Ox 07/31/21 11:55 96.9 F L 71 20 104/60 99 07/31/21 08:17 96.8 F L 83 20 110/54 99 07/31/21 04:20 97.9 F 72 17 107/55 99 07/30/21 23:15 77 18 122/57 96 07/30/21 21:20 97.9 F 80 16 95/50 98 07/30/21 16:00 97.9 F 78 18 110/56 96 07/30/21 14:00 80 18 Intake and Output 07/30/21 07/31/21 07/31/21 22:59 06:59 14:59 Intake Total 25 218 Output Total 360 375 Balance -335 -375 218 Intake: Intake, IV Titration 100 Amount Piperacillin-Tazobactam 3 100 .375 gm In Sodium Chloride 0.9% 100 ml @ 25 mls/hr IVPB Q12HR [facility] Rx #:[id number] Oral 25 118 Output: Urine 250 Stool 360 125 Other: Voiding Method Indwelling Catheter Indwelling Catheter Indwelling Catheter Weight 76.5 kg This is an elderly female who is resting comfortably. She is alert and oriented and able to provide history. Targeted physical exam is performed. The abdomen is obese with pannus. There is an intact ileostomy bag with copious brown liquid stool, not overtly bloody. The abdomen is soft and nontender. Suprapubic palpation does not reveal palpable mass. There is no rebound or guarding. Inspection of the breasts appear normal. No palpable masses. The patient has a Beckett catheter in place and the urine is yellow and cloudy. Inspection of the external female genitalia appears normal. Pelvic examination is not performed at this time. Results Result Diagrams: 07/30/21 02:50 07/31/21 11:11 Abnormal Lab Results - Last 24 Hours (Table) 07/30/21 07/30/21 07/31/21 Range/Units 16:46 20:30 06:10 Sodium (137-145) mmol/L Carbon Dioxide (22-30) mmol/L BUN (7-17) mg/dL Creatinine (0.52-1.04) mg/dL Glucose (74-99) mg/dL POC Glucose (mg/dL) 234 H 318 H 216 H (75-99) mg/dL 07/31/21 07/31/21 Range/Units 11:11 11:22 Sodium 132 L (137-145) mmol/L Carbon Dioxide 16 L (22-30) mmol/L BUN 78 H (7-17) mg/dL Creatinine 3.80 H (0.52-1.04) mg/dL Glucose 176 H (74-99) mg/dL POC Glucose (mg/dL) 209 H (75-99) mg/dL Microbiology - Last 24 Hours (Table) 07/29/21 17:31 Blood Culture - Preliminary Blood No Growth after 24 hours 07/29/21 14:12 Urine Culture - Preliminary Urine,Voided Gram Neg Bacilli Chest x-ray: report reviewed CT scan - abdomen: report reviewed CT scan - pelvis: report reviewed US - abdomen: report reviewed Assessment and Plan Assessment: 80-year-old 5 para 5 woman admitted with weakness, UTI, acute renal failure and COVID positive. History of multiple comorbidities. History of enlarged uterus/pelvic mass concerning for REFUSE LABORER malignancy leading to bowel obstruction. She reports a several years of postmenopausal bleeding. The next step in diagnosis should be a proper gynecologic examination with the cervical cancer screening (pap smear) and endometrial biopsy. This can be done in the outpatient setting when the patient is discharged. If need for tissue diagnosis is more urgent she can undergo hysteroscopy with dilation and curettage in the operating room during this admission. She is currently not having any vaginal bleeding or pelvic pain therefore I think evaluation can be done in the outpatient setting. Should her evaluation be positive for REFUSE LABORER malignancy she will be referred to a REFUSE LABORER oncologist for further recommendations and treatment. Thank you for the consultation and I will follow along during her admission as well as be available for close outpatient follow-up. (1) Postmenopausal bleeding Current Visit: Yes Status: Acute Code(s): N95.0 - POSTMENOPAUSAL BLEEDING SNOMED Code(s): 81654212 (2) History of pelvic mass Current Visit: Yes Status: Acute Code(s): Z87.898 - PERSONAL HISTORY OF OTHER SPECIFIED CONDITIONS SNOMED Code(s): 493174905 (3) ARF (acute renal failure) Current Visit: Yes Status: Acute Code(s): N17.9 - ACUTE KIDNEY FAILURE, UNSPECIFIED SNOMED Code(s): 13148375 (4) COVID-19 Current Visit: Yes Status: Acute Code(s): U07.1 - COVID-19 SNOMED Code(s): 719052969 (5) Bowel obstruction Current Visit: No Status: Acute Code(s): K56.609 - UNSP INTESTNL OBST, UNSP TO PARTIAL VERSUS COMPLETE OBST SNOMED Code(s): 55864932 (6) Diabetes Current Visit: No Status: Acute Code(s): E11.9 - TYPE 2 DIABETES MELLITUS WITHOUT COMPLICATIONS SNOMED Code(s): 67950697 (7) UTI (urinary tract infection) Current Visit: No Status: Acute Code(s): N39.0 - URINARY TRACT INFECTION, SITE NOT SPECIFIED SNOMED Code(s): 23169672 (8) Weakness Current Visit: No Status: Acute Code(s): R53.1 - WEAKNESS SNOMED Code(s): 14341278
--- NOTE | 2021-07-31 15:16 | P.PN ---
Subjective Progress Note Date: 07/31/21 Principal diagnosis: Shortness of breath. Pulmonary consult dated 07/30/2021. 80-year-old female, with a history of diabetes, heart failure, renal disease, who was seen in the emergency department on 07/29/2021. We were consulted, because the patient tested positive for coronavirus on this admission. She was in the hospital between June 20 and June 30, at which time we saw her, because she had some bowel surgery. She had a colectomy and ileostomy and umbilicus hernia repair, and mucous fistula. The surgery was done by Dr. Bailey. Anyway, the patient comes into the emergency department because for the last 2 or 3 days, she's been profoundly weak. She apparently is on vaccinated. She tested positive for coronavirus on July 29. She's been sick for at least 1 week. Not really having much in the way of shortness of breath, cough or anything like that. Most of it relates to just weakness, poor appetite, and dehydration. White count 14.4, hemoglobin 11, hematocrit 35.1, platelet count 336,000. Sodium 132, potassium 4.4, chlorides 104, CO2 13, anion gap 15, BUN 91, and creatinine 4.26. Troponins were 0.039 and 0.042. Urine, showed moderate blood, large leukocyte esterase, moderate WBC clumps, greater than 182 WBCs, and moderate bacteria. This is consistent with a urinary tract infection. Her coronavirus testing was positive. Chest x-ray was normal without any infiltrates. She is currently on 2 L nasal cannula, and she is getting a saline IV at [facility]. Progress note dated 07/31/2021. 80-year-old female seen yesterday in consultation. The patient has history of diabetes, heart failure, renal disease, and was seen in the emergency department on July 29. The patient did test positive for coronavirus infection. She was previously in the hospital between June 20 and , at which time she had an exploratory laparotomy, right colectomy, ileostomy, umbilicus hernia repair, and mucous fistula. Currently, the patient's resting comfortably. She's on room air. Saturations are 99%. She is on D5 W at 75 mL an hour. Lab data today includes a sodium 132 potassium 4.6, chlorides 100, CO2 16, BUN 78, with a creatinine of 3.80. Glucose is 176. Objective - Vital Signs Vital signs: Vital Signs Temp 96.9 F L 07/31/21 11:55 Pulse 71 07/31/21 11:55 Resp 20 07/31/21 11:55 BP 104/60 07/31/21 11:55 Pulse Ox 99 07/31/21 11:55 Intake & Output 07/30/21 07/31/21 07/31/21 18:59 06:59 18:59 Intake Total 265 828 Output Total 560 375 Balance -295 -375 828 Weight 76.5 kg Intake: Intake, IV Titration 700 Amount Dextrose 5% in Water 1, 600 000 ml @ 75 mls/hr IV . [id number] [facility] with Sodium Bicarb (1 Meq/ml) 150 ml Rx#:[id number] Piperacillin-Tazobactam 3 100 .375 gm In Sodium Chloride 0.9% 100 ml @ 25 mls/hr IVPB Q12HR [facility] Rx #:[id number] Oral 265 128 Output: Urine 200 250 Stool 360 125 Other: Voiding Method Indwelling Catheter Indwelling Catheter Indwelling Catheter - Exam No acute distress, oriented 3. Appears very weak and frail. Currently on room air. HEENT examination is grossly unremarkable. Neck supple. Full range of motion. No adenopathy thyromegaly or neck vein distention. Cardiovascular examination reveals regular rhythm rate. S1-S2 normal. No S3 or S4. No discernible murmur noted. Heart rate 71 bpm. Lungs reveal clear breath sounds. Breath sounds are equal bilaterally. No adventitious lung sounds including wheezes rhonchi or crackles. Abdomen soft, with bowel sounds. She has a functioning ileostomy. Extremities are intact. No cyanosis clubbing or edema. Skin is without rash or lesion. Neurologic examination is brief but nonfocal. - Labs CBC & Chem 7: 07/30/21 02:50 07/31/21 11:11 Labs: Abnormal Lab Results - Last 24 Hours (Table) 07/30/21 07/30/21 07/31/21 Range/Units 16:46 20:30 06:10 Sodium (137-145) mmol/L Carbon Dioxide (22-30) mmol/L BUN (7-17) mg/dL Creatinine (0.52-1.04) mg/dL Glucose (74-99) mg/dL POC Glucose (mg/dL) 234 H 318 H 216 H (75-99) mg/dL 07/31/21 07/31/21 Range/Units 11:11 11:22 Sodium 132 L (137-145) mmol/L Carbon Dioxide 16 L (22-30) mmol/L BUN 78 H (7-17) mg/dL Creatinine 3.80 H (0.52-1.04) mg/dL Glucose 176 H (74-99) mg/dL POC Glucose (mg/dL) 209 H (75-99) mg/dL Microbiology - Last 24 Hours (Table) 07/29/21 17:31 Blood Culture - Preliminary Blood No Growth after 24 hours 07/29/21 14:12 Urine Culture - Preliminary Urine,Voided Gram Neg Bacilli Assessment and Plan Assessment: Coronavirus infection, without obvious coronavirus associated pneumonia. Weakness, and dehydration, secondary to coronavirus infection. Probable urinary tract infection. Acute kidney injury. Recent exploratory laparotomy, right colectomy and ileostomy, with repair of umbilicus hernia, and mucous fistula, between June 20 and June 30, 2021. History of CHF. History of diabetes mellitus. History of hyperlipidemia. History of hypertension. Osteoarthritis. Plan: Plan dated 07/30/2021. The patient has coronavirus infection, without significant coronavirus associated pneumonia. She likely does not need supplemental oxygen. In addition, I don't believe she is a candidate for Decadron in my opinion, given the fact she is not having any respiratory issues. She is on Zosyn for suspected urinary tract infection. Vitamin C, vitamin D3, and zinc are appropriate. The patient should be properly hydrated. Nephrology should be consulted. Additional recommendations and suggestions are forthcoming.We will follow along and make recommendations where appropriate. Plan dated 07/31/2021. This is a patient who we saw yesterday in consultation. She tested positive for coronavirus, and I believe that was more incidental than anything else. She did not have any pulmonary complaints. She does not have coronavirus associated pneumonia. She's currently on room air. She is on antibiotics for suspected urinary tract infection. The Decadron will be discontinued. The vitamins are appropriate. We will follow moving forward, only as needed. No additional recommendations are made. Prognosis is guarded. Time with Patient: Less than 30
--- NOTE | 2021-07-31 16:54 | PN ---
PROGRESS NOTE Patient is seen for followup for acute kidney injury on top of chronic kidney disease. Her creatinine is improving. It is down from 5.4 to 3.8 mg/dL. The patient is currently maintained on IV fluids in the form of IV bicarb. She is currently being evaluated for a pelvic mass by RIPPER OPERATOR. The patient tested positive for COVID-19. EXAMINATION: On examination today, blood pressure is 104/60, heart rate 71 per minute. She is afebrile. Examination shows no significant edema in lower extremities. Heart and lungs are not examined. LAB: Show sodium 132, potassium 4.6, chloride 100, CO2 16, BUN 78, creatinine 3.8. ASSESSMENT: 1. Acute kidney injury, prerenal, currently improving with IV hydration. Ultrasound of the kidneys does not show hydronephrosis. Right kidney is smaller in size. UA shows significant pyuria. Continue with the IV fluids for now. 2. Metabolic acidosis and anion gap associated with renal failure, maintained on IV bicarb and improving. 3. Pelvic mass, currently being evaluated by RIPPER OPERATOR. 4. Hyperkalemia on admission, currently improved. 5. Recent colectomy and ileostomy with umbilical hernia repair. PLAN: Continue with the bicarb drip. Repeat labs in a.m. Avoid nephrotoxic agents. I will decrease the Norvasc as blood pressure is on the lower side. MMODL / IJN: [id number] /
[2021-07-31 16:57] LABS: Glucose,Whole Blood 258 mg/dL (75-99)
[2021-07-31 20:07] LABS: Glucose,Whole Blood 226 mg/dL (75-99)
[2021-07-31] MEDS: PRAVASTATIN SODIUM 40 MG TAB PO SCH (20:32)
[2021-07-31] MEDS: DEXTROSE 5% IN WATER 1,000 ML with SODIUM BICARB (1 MEQ/ML) 150 ML IV SCH ×2 (20:32→22:08)
[2021-08-01 06:02] LABS: Glucose,Whole Blood 183 mg/dL (75-99)
[2021-08-01] MEDS: CALCIUM ACETATE 667 MG TAB PO SCH ×3 (06:31→17:17)
[2021-08-01] MEDS: INSULN ASP PRT/INSULIN ASPART 100 UNIT/ML 10 ML VIAL SQ SCH ×3 (06:31→16:55)
[2021-08-01] MEDS: INSULIN ASPART (NovoLOG) 100 UNIT/ML VIAL SQ SCH ×4 (06:31→21:41)
[2021-08-01] MEDS: PANTOPRAZOLE 40 MG TABLET PO SCH (06:31)
[2021-08-01 08:12] LABS: Albumin 2.8 g/dL (3.5-5.0); Calcium 7.8 mg/dL (8.4-10.2); Total Bilirubin 0.2 mg/dL (0.2-1.3)
[2021-08-01 08:17] LABS: Basophils % (A) 0 %; Eosinophils % (A) 0 %; HCT 29.3 % (34.0-46.0); Hypochromasia Slight; Lymphocytes # (A) 1.6 k/uL (1.0-4.8); Lymphocytes % (A) 15 %; MCH 31.9 pg (25.0-35.0); MCHC 32.3 g/dL (31.0-37.0); MCV 98.8 fL (80.0-100.0); Macrocytosis Slight; Monocytes # (A) 0.3 k/uL (0-1.0); Monocytes % (A) 3 %; Neutrophils # (A) 8.4 k/uL (1.3-7.7); Neutrophils % (A) 81 %; Platelet Count 324 k/uL (150-450); RBC 2.97 m/uL (3.80-5.40); RDW 14.8 % (11.5-15.5); WBC 10.4 k/uL (3.8-10.6)
[2021-08-01 08:46] LABS: HGB 9.5 gm/dL (11.4-16.0)
[2021-08-01 08:52] LABS: Potassium 4.5 mmol/L (3.5-5.1)
[2021-08-01] MEDS: METOPROLOL TARTRATE 50 MG TAB PO SCH ×2 (09:15→20:01)
[2021-08-01] MEDS: FLUoxetine HCL 20 MG CAP PO SCH (09:16)
[2021-08-01] MEDS: PIPERACILLIN-TAZOBACTAM 3.375 GM in SODIUM CHLORIDE 0.9% 100 ML IVPB SCH ×2 (09:16→20:02)
[2021-08-01] MEDS: ASCORBIC ACID 500 MG TAB PO SCH (09:16)
[2021-08-01] MEDS: APIXABAN 2.5 MG TABLET PO SCH ×2 (09:16→20:01)
[2021-08-01] MEDS: ZINC SULFATE 220 MG CAP PO SCH (09:16)
[2021-08-01] MEDS: OXYBUTYNIN CHLORIDE 5 MG TAB PO SCH ×2 (09:16→20:01)
--- NOTE | 2021-08-01 10:59 | P.PN ---
<Marisa Martinez - Last Filed: 08/01/21 10:53> Subjective Progress Note Date: 08/01/21 CHIEF COMPLAINT: Weakness HISTORY OF PRESENT ILLNESS: Patient is lying in bed comfortably. She denies any nausea vomiting. Denies any abdominal pain. Patient had eaten a full yogurt. And was awaiting her breakfast tray. Her ostomy is functioning. Stool is brown in color. Patient seen by [facility] NURSE PRACTITIONER service. They're recommending further workup outpatient regarding pelvic mass. Afebrile. Afebrile. WBC normalized to 10.4 hemoglobin dropped from 11-9.5 PHYSICAL EXAM: VITAL SIGNS: Reviewed. GENERAL: Well-developed in no acute distress. HEENT: No sclera icterus. Extraocular movements grossly intact. Moist buccal mucosa. Head is atraumatic, normocephalic. ABDOMEN: Soft. Nondistended. Nontender. Ostomy on right abdomen with stool. NEUROLOGIC: Alert and oriented. Cranial nerves II through XII grossly intact. ASSESSMENT: 1. Weakness 2. Dehydration with acute kidney injury 3. Nausea 4. Pelvic mass noted on 07/15/[address] Bailey performed patient's flexible sigmoidoscopy 5. Status post exploratory laparotomy with right colectomy, end ileostomy, mucous fistula and repair of umbilical hernia for a colonic obstruction with pneumatosis of the right colon on 06/20/2021. 6. COVID-19 positive 7. UTI 8. Anemia PLAN: -Continue supportive care -Continue carb consistent diet -Continue IV fluids -Encouraged patient to increase activity Physician Public Speaker note has been reviewed by physician. Signing provider agrees with the documented findings, assessment, and plan of care. Objective - Vital Signs Vital signs: Vital Signs Temp 97.4 F L 08/01/21 09:10 Pulse 76 08/01/21 09:10 Resp 18 08/01/21 09:15 BP 113/74 08/01/21 09:10 Pulse Ox 97 08/01/21 09:10 Intake & Output 07/31/21 08/01/21 08/01/21 18:59 06:59 18:59 Intake Total 946 240 Output Total 550 225 Balance 396 -225 240 Weight 76 kg Intake: Intake, IV Titration 700 Amount Dextrose 5% in Water 1, 600 000 ml @ 75 mls/hr IV . [id number] [facility] with Sodium Bicarb (1 Meq/ml) 150 ml Rx#:[id number] Piperacillin-Tazobactam 3 100 .375 gm In Sodium Chloride 0.9% 100 ml @ 25 mls/hr IVPB Q12HR [facility] Rx #:[id number] Oral 246 240 Output: Urine 550 225 Other: Voiding Method Indwelling Catheter Indwelling Catheter Indwelling Catheter # Bowel Movements 1 - Labs CBC & Chem 7: 08/01/21 07:06 08/01/21 07:06 Labs: Abnormal Lab Results - Last 24 Hours (Table) 07/31/21 07/31/21 07/31/21 Range/Units 11:11 11:22 16:55 RBC (3.80-5.40) m/uL Hgb (11.4-16.0) gm/dL Hct (34.0-46.0) % Neutrophils # (1.3-7.7) k/uL Sodium 132 L (137-145) mmol/L Carbon Dioxide 16 L (22-30) mmol/L BUN 78 H (7-17) mg/dL Creatinine 3.80 H (0.52-1.04) mg/dL Glucose 176 H (74-99) mg/dL POC Glucose (mg/dL) 209 H 258 H (75-99) mg/dL Calcium (8.4-10.2) mg/dL Alkaline Phosphatase (38-126) U/L Total Protein (6.3-8.2) g/dL Albumin (3.5-5.0) g/dL 07/31/21 08/01/21 08/01/21 Range/Units 20:06 06:00 07:06 RBC 2.97 L (3.80-5.40) m/uL Hgb 9.5 L D (11.4-16.0) gm/dL Hct 29.3 L (34.0-46.0) % Neutrophils # 8.4 H (1.3-7.7) k/uL Sodium (137-145) mmol/L Carbon Dioxide (22-30) mmol/L BUN (7-17) mg/dL Creatinine (0.52-1.04) mg/dL Glucose (74-99) mg/dL POC Glucose (mg/dL) 226 H 183 H (75-99) mg/dL Calcium (8.4-10.2) mg/dL Alkaline Phosphatase (38-126) U/L Total Protein (6.3-8.2) g/dL Albumin (3.5-5.0) g/dL 08/01/21 Range/Units 07:06 RBC (3.80-5.40) m/uL Hgb (11.4-16.0) gm/dL Hct (34.0-46.0) % Neutrophils # (1.3-7.7) k/uL Sodium 132 L (137-145) mmol/L Carbon Dioxide (22-30) mmol/L BUN 71 H (7-17) mg/dL Creatinine 3.42 H (0.52-1.04) mg/dL Glucose 184 H (74-99) mg/dL POC Glucose (mg/dL) (75-99) mg/dL Calcium 7.8 L (8.4-10.2) mg/dL Alkaline Phosphatase 131 H (38-126) U/L Total Protein 6.0 L (6.3-8.2) g/dL Albumin 2.8 L (3.5-5.0) g/dL Microbiology - Last 24 Hours (Table) 07/29/21 17:31 Blood Culture - Preliminary Blood No Growth after 48 hours 07/29/21 14:12 Urine Culture - Final Urine,Voided Escherichia coli <Arash Bailey - Last Filed: 08/01/21 13:26> Subjective As above. Patient doing well at this time. Possible transfer [facility] to [facility]. Follow-up with gynecology post discharge. Objective - Vital Signs Vital signs: Vital Signs Temp 97.4 F L 08/01/21 09:10 Pulse 76 08/01/21 09:10 Resp 18 08/01/21 09:15 BP 113/74 08/01/21 09:10 Pulse Ox 97 08/01/21 09:10 Intake & Output 07/31/21 08/01/21 08/01/21 18:59 06:59 18:59 Intake Total 946 240 Output Total 550 225 Balance 396 -225 240 Weight 76 kg Intake: Intake, IV Titration 700 Amount Dextrose 5% in Water 1, 600 000 ml @ 75 mls/hr IV . [id number] [facility] with Sodium Bicarb (1 Meq/ml) 150 ml Rx#:[id number] Piperacillin-Tazobactam 3 100 .375 gm In Sodium Chloride 0.9% 100 ml @ 25 mls/hr IVPB Q12HR [facility] Rx #:[id number] Oral 246 240 Output: Urine 550 225 Other: Voiding Method Indwelling Catheter Indwelling Catheter Indwelling Catheter # Bowel Movements 1 - Labs CBC & Chem 7: 08/01/21 07:06 08/01/21 07:06 Labs: Abnormal Lab Results - Last 24 Hours (Table) 07/31/21 07/31/21 08/01/21 Range/Units 16:55 20:06 06:00 RBC (3.80-5.40) m/uL Hgb (11.4-16.0) gm/dL Hct (34.0-46.0) % Neutrophils # (1.3-7.7) k/uL Sodium (137-145) mmol/L BUN (7-17) mg/dL Creatinine (0.52-1.04) mg/dL Glucose (74-99) mg/dL POC Glucose (mg/dL) 258 H 226 H 183 H (75-99) mg/dL Calcium (8.4-10.2) mg/dL Alkaline Phosphatase (38-126) U/L Total Protein (6.3-8.2) g/dL Albumin (3.5-5.0) g/dL 08/01/21 08/01/21 08/01/21 Range/Units 07:06 07:06 11:53 RBC 2.97 L (3.80-5.40) m/uL Hgb 9.5 L D (11.4-16.0) gm/dL Hct 29.3 L (34.0-46.0) % Neutrophils # 8.4 H (1.3-7.7) k/uL Sodium 132 L (137-145) mmol/L BUN 71 H (7-17) mg/dL Creatinine 3.42 H (0.52-1.04) mg/dL Glucose 184 H (74-99) mg/dL POC Glucose (mg/dL) 143 H (75-99) mg/dL Calcium 7.8 L (8.4-10.2) mg/dL Alkaline Phosphatase 131 H (38-126) U/L Total Protein 6.0 L (6.3-8.2) g/dL Albumin 2.8 L (3.5-5.0) g/dL Microbiology - Last 24 Hours (Table) 07/29/21 17:31 Blood Culture - Preliminary Blood No Growth after 48 hours 07/29/21 14:12 Urine Culture - Final Urine,Voided Escherichia coli
[2021-08-01 11:55] LABS: Glucose,Whole Blood 143 mg/dL (75-99)
--- NOTE | 2021-08-01 12:16 | P.PN ---
Subjective Progress Note Date: 08/01/21 HISTORY OF PRESENT ILLNESS 80-year-old female one of Dr. Sanchez's patient with past medical history of CAD, hypertension, hyperlipidemia, recurrent urinary tract infection, who was hospitalized recently for recurrent abdominal pain and distention ended up going for Sigmoidoscopy and biopsy patient had obstruction ended up going for surgery with Dr. Leo paniagua in 2 weeks ago and was apparently discharged to [facility] on the [place] where patient spent up till the last few days. She presented to the emergency department today with worsening weakness fatigue and worsening symptoms. When she was in the hospital last time had right colectomy and ileostomy with repair of umbilical hernia had some exposure to COVID-19 in the hospital and snf as well. Patient being very sick today ended up coming to the emergency department was seen and evaluated surprisingly her urine was very positive her potassium was 6.0, BUN was 100 with creatinine of 5.41 white blood cell was 16.7 with left shifted troponin was mildly elevated UA and culture were positive and COVID-19 was positive. With the multi medical problem patient will be hospitalized will be seen nephrology, infectious disease, assembly associate possibly cardiology. Also we'll consult with Dr. gipson to make sure this is not a complication related to surgery. 07/30: Patient has been afebrile, heart rate 78, blood pressure 102/62, pulse ox 100% on 2 L nasal cannula. Repeat blood work revealed WBC 14.4, hemoglobin 11, platelet count 336. Sodium 132, potassium 4.4, chloride 104, CO2 13, BUN 91 and creatinine 4.26. Blood sugars are running between 96 and 121. Urine culture and blood culture in progress. Consults in place for nephrology, pulmonary medicine and general surgery. She and started on Zosyn. Patient is currently not on oxygen. She has output from ostomy. She does complain of decreased appetite. Discussed discharge plan with the patient and she would like to go to [facility] for subacute rehab for which social work is following. 07/31: Patient is complaining of nausea today and Zofran added. Patient has been afebrile, heart rate 83, blood pressure 110/54, pulse ox 99% on room air. Blood sugars are running in the low 200s to 318, a will be resumed back on Humalog 75/25 10 units 3 times daily with meals and continue NovoLog scale. We've added in consult for Dr. Bowen for possible inpatient rehab otherwise subacute rehab would be appropriate but patient verbalizes that she doesn't really want to go to subacute rehab. Social work and case management are following the patient. Stat lab work has been ordered today and repeat lab work ordered for tomorrow. 08/01: Patient has been seen by [facility] for enlarged uterus/pelvic mass. Patient apparently has had several years of postmenopausal bleeding. Patient will need a Pap smear and endometrial biopsy which can be done in the outpatient setting after the patient is discharged. Or patient may undergo hysteroscopy with dilation and curettage in the OR during this admission. She is not currently having vaginal bleeding and no pelvic pain. Patient has been afebrile, heart rate 76, blood pressure 113/74, pulse ox 97% on room air. Repeat lab work reveals WBC 10.4, hemoglobin 9.5. Sodium 132, potassium 4.5, chloride 90, CO2 24, BUN 71 and creatinine 3.42. Blood sugars are running between 183 and 258. Alkaline phosphatase 131. Beckett catheter to be discontinued today. Will need clearance from Dr. Frazier for discharge. Urine culture came back with [id number] E. coli and consult added for Dr. Reddy. REVIEW OF SYSTEMS Constitutional: No fever, no chills, no night sweats. No weight change. No weakness, fatigue or lethargy. No daytime sleepiness. Slightly confused does not look in any respiratory distress. EENT: No headache. No blurred vision or double vision, no loss of vision. No loss of Hearing, no ringing in the ears, no dizziness. No nasal drainage or congestion. No epistaxis. No sore throat. Lungs: No shortness of breath, cough, no sputum production. No wheezing. Cardiovascular: Mild PND and orthopnea and no chest pain slight edema of the lower extremity mild palpitation with exertion. Abdominal: No abdominal pain. No vaginal bleeding today. Significant decrease in appetite. Genitourinary: No dysuria, increased frequency, urgency. No urinary retention. Decrease urine output. Musculoskeletal: No myalgias. No muscle weakness, no gait dysfunction, no frequent falls. No back pain. No neck pain. Integumentary: No wounds, no lesions. No rash or pruritus. No unusual bruising. No change in hair or nails. Neurologic: No motor deficit visualized weakness had slight change mental status. Psychiatric: No depression. No anxiety. No mood swings. Endocrine: Noted abnormal blood sugars. No weight change. No excessive sweating or thirst. No cold intolerance. PHYSICAL EXAMINATION Gen: This is an elderly frail appearing 80-year-old female, resting in bed in no acute distress. HEENT: Head is atraumatic, normocephalic. Pupils equal, round. Sclerae is anicteric. NECK: Supple. No JVD. No lymphadenopathy. No thyromegaly. LUNGS: Decreased breath some bilateral rhonchi and mild expiratory wheezes. HEART: Irregular rate and rhythm. Monitor atrial fibrillation rate controlled. ABDOMEN: Abdomen soft, no rebound or rigidity. 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 Beckett catheter draining nicolette urine EXTREMITIES: No pedal edema. No calf tenderness. NEUROLOGICAL: Patient is awake, alert with slight confusion. Cranial nerves 2 through 12 are grossly intact. ASSESSMENT AND PLAN 1 acute respiratory failure: Secondary to COVID-19 pneumonitis, sepsis, acute kidney injury and recent history of bowel obstruction. Continue current treatment. 2. acute kidney failure: Secondary to acute tubular necrosis and hypoperfusion. Consult with nephrology appreciated.. 3. sepsis: Most likely from UTI infection also she had COVID-19. Continue flu id resuscitation and supportive care. 4. Tesyh-imrz-kbdtfftwk E. coli UTI. Continue Zosyn, consult Dr. Reddy. 5 severe hyperkalemia with potassium of 6.0. Status post Kayexalate, continue to monitor. 6 recent history of bowel obstruction post right sided colectomy partial resection consult general surgery again to see if there is any complication specially with the current lab value. 7 recurrent abdominal pain was secondary to ischemic colitis and early perforation s/p surgery on previous admission. Consult Dr. Bailey appreciated, no plan for surgical intervention. 8 history of congestive heart failure. Control metoprolol. 9 type 2 diabetes mellitus uncontrolled with hyperglycemia. Patient will be resumed back on Humalog 75/25 at 10 units with meals and continue NovoLog scale. 10 acute kidney injury with chronic kidney disease: With creatinine much worse at this point continue hydration repeat CMP. 11 chronic neuropathy. 12. Metabolic acidosis secondary to renal failure. Nephrology consult, status post bicarb drip. 13. Hyperlipidemia. 14. chronic edema. 15. COPD. 16. Uterus/pelvic mass. Patient has been seen by [facility] with plan for outpatient workup to include Pap smear and uterine biopsy 17. DVT prophylaxis. Eliquis. 18. GI prophylaxis: Patient be on pantoprazole po. CODE STATUS: Full code. DISCHARGE PLAN Subacute rehab at [facility] Impression and plan of care have been directed as dictated by the signing physician. Thais Scott nurse practitioner acting as scribe for signing physician. Objective - Vital Signs Vital signs: Vital Signs Temp 97.4 F L 08/01/21 09:10 Pulse 76 08/01/21 09:10 Resp 18 08/01/21 09:10 BP 113/74 08/01/21 09:10 Pulse Ox 97 08/01/21 09:10 Intake & Output 07/31/21 08/01/21 08/01/21 18:59 06:59 18:59 Intake Total 946 Output Total 550 225 Balance 396 -225 Weight 76 kg Intake: Intake, IV Titration 700 Amount Dextrose 5% in Water 1, 600 000 ml @ 75 mls/hr IV . [id number] STEPHANIE with Sodium Bicarb (1 Meq/ml) 150 ml Rx#:[id number] Piperacillin-Tazobactam 3 100 .375 gm In Sodium Chloride 0.9% 100 ml @ 25 mls/hr IVPB Q12HR STEPHANIE Rx #:[id number] Oral 246 Output: Urine 550 225 Other: Voiding Method Indwelling Catheter Indwelling Catheter # Bowel Movements 1 - Labs CBC & Chem 7: 08/01/21 07:06 08/01/21 07:06 Labs: Abnormal Lab Results - Last 24 Hours (Table) 07/31/21 07/31/21 07/31/21 Range/Units 11:11 11:22 16:55 RBC (3.80-5.40) m/uL Hgb (11.4-16.0) gm/dL Hct (34.0-46.0) % Neutrophils # (1.3-7.7) k/uL Sodium 132 L (137-145) mmol/L Carbon Dioxide 16 L (22-30) mmol/L BUN 78 H (7-17) mg/dL Creatinine 3.80 H (0.52-1.04) mg/dL Glucose 176 H (74-99) mg/dL POC Glucose (mg/dL) 209 H 258 H (75-99) mg/dL Calcium (8.4-10.2) mg/dL Alkaline Phosphatase (38-126) U/L Total Protein (6.3-8.2) g/dL Albumin (3.5-5.0) g/dL 07/31/21 08/01/21 08/01/21 Range/Units 20:06 06:00 07:06 RBC 2.97 L (3.80-5.40) m/uL Hgb 9.5 L D (11.4-16.0) gm/dL Hct 29.3 L (34.0-46.0) % Neutrophils # 8.4 H (1.3-7.7) k/uL Sodium (137-145) mmol/L Carbon Dioxide (22-30) mmol/L BUN (7-17) mg/dL Creatinine (0.52-1.04) mg/dL Glucose (74-99) mg/dL POC Glucose (mg/dL) 226 H 183 H (75-99) mg/dL Calcium (8.4-10.2) mg/dL Alkaline Phosphatase (38-126) U/L Total Protein (6.3-8.2) g/dL Albumin (3.5-5.0) g/dL 08/01/21 Range/Units 07:06 RBC (3.80-5.40) m/uL Hgb (11.4-16.0) gm/dL Hct (34.0-46.0) % Neutrophils # (1.3-7.7) k/uL Sodium 132 L (137-145) mmol/L Carbon Dioxide (22-30) mmol/L BUN 71 H (7-17) mg/dL Creatinine 3.42 H (0.52-1.04) mg/dL Glucose 184 H (74-99) mg/dL POC Glucose (mg/dL) (75-99) mg/dL Calcium 7.8 L (8.4-10.2) mg/dL Alkaline Phosphatase 131 H (38-126) U/L Total Protein 6.0 L (6.3-8.2) g/dL Albumin 2.8 L (3.5-5.0) g/dL Microbiology - Last 24 Hours (Table) 07/29/21 17:31 Blood Culture - Preliminary Blood No Growth after 48 hours 07/29/21 14:12 Urine Culture - Final Urine,Voided Escherichia coli
--- NOTE | 2021-08-01 12:23 | P.DS ---
Providers Date of admission: 07/29/21 16:44 Expected date of discharge: 08/01/21 Attending physician: Kalia Aggarwal Consults: 07/29/21 17:15 Consult Physician Urgent Consulting Provider: Abdirizak Anderson Consult Reason/Comments: covid infection Do you want consulting provider notified?: Yes 07/29/21 17:18 Consult Physician Urgent Consulting Provider: Renetta Frazier Consult Reason/Comments: shade/ckd Do you want consulting provider notified?: Yes 07/29/21 17:20 Consult Physician Urgent Consulting Provider: Arash Bailey Consult Reason/Comments: acute nausea/vomiting, recent ileostomy Do you want consulting provider notified?: Yes 07/30/21 12:28 Consult Physician Routine Consulting Provider: Dee Dee Baez Consult Reason/Comments: pelvic mass Do you want consulting provider notified?: Yes 07/31/21 10:55 Consult Physician Routine Consulting Provider: Joe Bowen Consult Reason/Comments: IP rehab Do you want consulting provider notified?: Yes 08/01/21 11:56 Consult Physician Routine Consulting Provider: Jose Juan Reddy Consult Reason/Comments: MDRO UTI Do you want consulting provider notified?: Yes Primary care physician: Eugenia Sanchez [facility] Course: HISTORY OF PRESENT ILLNESS 80-year-old female one of Dr. Sanchez's patient with past medical history of CAD, hypertension, hyperlipidemia, recurrent urinary tract infection, who was hospitalized recently for recurrent abdominal pain and distention ended up going for Sigmoidoscopy and biopsy patient had obstruction ended up going for surgery with Dr. Bailey us in 2 weeks ago and was apparently discharged to [facility] on the [address] where patient spent up till the last few days. She presented to the emergency department today with worsening weakness fatigue and worsening sy mptoms. When she was in the hospital last time had right colectomy and ileostomy with repair of umbilical hernia had some exposure to COVID-19 in the hospital and snf as well. Patient being very sick today ended up coming to the emergency department was seen and evaluated surprisingly her urine was very positive her potassium was 6.0, BUN was 100 with creatinine of 5.41 white blood cell was 16.7 with left shifted troponin was mildly elevated UA and culture were positive and COVID-19 was positive. With the multi medical problem patient will be hospitalized will be seen nephrology, infectious disease, tennis director possibly cardiology. Also we'll consult with Dr. gipson to make sure this is not a complication related to surgery. 07/30: Patient has been afebrile, heart rate 78, blood pressure 102/62, pulse ox 100% on 2 L nasal cannula. Repeat blood work revealed WBC 14.4, hemoglobin 11, platelet count 336. Sodium 132, potassium 4.4, chloride 104, CO2 13, BUN 91 and creatinine 4.26. Blood sugars are running between 96 and 121. Urine culture and blood culture in progress. Consults in place for nephrology, pulmonary medicine and general surgery. She and started on Zosyn. Patient is currently not on oxygen. She has output from ostomy. She does complain of decreased appetite. Discussed discharge plan with the patient and she would like to go to [facility] for subacute rehab for which social work is following. 07/31: Patient is complaining of nausea today and Janine added. Patient has been afebrile, heart rate 83, blood pressure 110/54, pulse ox 99% on room air. Blood sugars are running in the low 200s to 318, a will be resumed back on Humalog 75/25 10 units 3 times daily with meals and continue NovoLog scale. We've added in consult for Dr. Bowen for possible inpatient rehab otherwise subacute rehab would be appropriate but patient verbalizes that she doesn't really want to go to subacute rehab. Social work and case management are following the patient. Stat lab work has been ordered today and repeat lab work ordered for tomorrow. 08/01: Patient has been seen by [facility] for enlarged uterus/pelvic mass. Patient apparently has had several years of postmenopausal bleeding. Patient will need a Pap smear and endometrial biopsy which can be done in the outpatient setting after the patient is discharged. Or patient may undergo hysteroscopy with dilation and curettage in the OR during this admission. She is not currently having vaginal bleeding and no pelvic pain. Patient has been afebrile, heart rate 76, blood pressure 113/74, pulse ox 97% on room air. Repeat lab work reveals WBC 10.4, hemoglobin 9.5. Sodium 132, potassium 4.5, chloride 90, CO2 24, BUN 71 and creatinine 3.42. Blood sugars are running between 183 and 258. Alkaline phosphatase 131. Beckett catheter to be discontinued today. Will need clearance from Dr. Frazier for discharge. Urine culture came back with [id number] E. coli and consult added for Dr. Reddy. DISCHARGE DIAGNOSES 1 acute respiratory failure: Secondary to COVID-19 pneumonitis, sepsis, acute kidney injury and recent history of bowel obstruction. 2. acute kidney failure: Secondary to acute tubular necrosis and hypoperfusion. 3. sepsis: Most likely from UTI infection also she had COVID-19. 4. Vyefx-lcfc-ggiwnpdlj E. coli UTI. 5 severe hyperkalemia with potassium of 6.0. 6 recent history of bowel obstruction post right sided colectomy partial resection 7 recurrent abdominal pain was secondary to ischemic colitis and early perforation s/p surgery on previous admission. 8 history of chronic diastolic heart failure. 9 type 2 diabetes mellitus uncontrolled with hyperglycemia. 10 acute kidney injury with chronic kidney disease. 11 chronic neuropathy. 12. Metabolic acidosis secondary to renal failure. 13. Hyperlipidemia. 14. chronic edema. 15. COPD. 16. Uterus/pelvic mass. Patient has been seen by [facility] with plan for outpatient workup to include Pap smear and uterine biopsy 17. Paroxysmal atrial fibrillation DISCHARGE PLAN Subacute rehab at [facility] Greater than 35 minutes was utilized and coordinating patient's discharge. Impression and plan of care have been directed as dictated by the signing physician. Thais Scott nurse practitioner acting as scribe for signing physician. Patient Condition at Discharge: Stable Plan - Discharge Summary Discharge Rx Participant: No New Discharge Prescriptions: New Zinc Sulfate [Orazinc] 220 mg PO DAILY cap Ascorbic Acid [Vitamin C] 1,000 mg PO DAILY tab INSULIN ASPART (NovoLOG) [NovoLOG (formulary)] 0 unit SQ ACHS ml Continue FLUoxetine HCL [PROzac] 40 mg PO DAILY Metoprolol Tartrate [Lopressor] 50 mg PO BID Calcium Acetate [PhosLo] 667 mg PO TID-W/MEALS Pravastatin Sodium [Pravachol] 40 mg PO HS Oxybutynin Chloride [Ditropan] 5 mg PO BID #0 Insulin Lispro Protamin/Lispro [humaLOG Mix 75-25 Kwikpen] See Protocol SQ AC-TID Acetaminophen [Tylenol Extra Strength] 1,000 mg PO BID PRN PRN Reason: Pain Apixaban [Eliquis] 2.5 mg PO BID 30 Days #60 tab Discontinued amLODIPine [Norvasc] 10 mg PO DAILY Discharge Medication List FLUoxetine HCL [PROzac] 40 mg PO DAILY 10/18/18 [History] Metoprolol Tartrate [Lopressor] 50 mg PO BID 10/18/18 [History] Acetaminophen [Tylenol Extra Strength] 1,000 mg PO BID PRN 06/20/21 [History] Calcium Acetate [PhosLo] 667 mg PO TID-W/MEALS 06/20/21 [History] Pravastatin Sodium [Pravachol] 40 mg PO HS 06/20/21 [History] Apixaban [Eliquis] 2.5 mg PO BID 30 Days #60 tab 06/24/21 [Rx] Oxybutynin Chloride [Ditropan] 5 mg PO BID #0 06/30/21 [Rx] Insulin Lispro Protamin/Lispro [humaLOG Mix 75-25 Kwikpen] See Protocol SQ AC- TID 07/29/21 [History] Ascorbic Acid [Vitamin C] 1,000 mg PO DAILY tab 08/01/21 [Rx] INSULIN ASPART (NovoLOG) [NovoLOG (formulary)] 0 unit SQ ACHS ml 08/01/21 [Rx] Zinc Sulfate [Orazinc] 220 mg PO DAILY cap 08/01/21 [Rx] Follow up Appointment(s)/Referral(s): Dee Dee Baez MD [STAFF PHYSICIAN] - 1 Week Eugenia Sanchez MD [Primary Care Provider] - 1 Week (after discharge from [facility]) Discharge Disposition: TRANSFER TO SNF/ECF
--- NOTE | 2021-08-01 13:55 | P.PN ---
Subjective Progress Note Date: 08/01/21 80-year-old female, with a history of diabetes, heart failure, renal disease, who was seen in the emergency department on 07/29/2021. We were consulted, because the patient tested positive for coronavirus on this admission. She was in the hospital between June 20 and June 30, at which time we saw her, because she had some bowel surgery. She had a colectomy and ileostomy and umbilicus hernia repair, and mucous fistula. The surgery was done by Dr. Bailey. Anyway, the patient comes into the emergency department because for the last 2 or 3 days, she's been profoundly weak. She apparently is on vaccinated. She tested positive for coronavirus on July 29. She's been sick for at least 1 week. Not really having much in the way of shortness of breath, cough or anything like that. Most of it relates to just weakness, poor appetite, and dehydration. White count 14.4, hemoglobin 11, hematocrit 35.1, platelet count 336,000. Sodium 132, potassium 4.4, chlorides 104, CO2 13, anion gap 15, BUN 91, and creatinine 4.26. Troponins were 0.039 and 0.042. Urine, showed moderate blood, large leukocyte esterase, moderate WBC clumps, greater than 182 WBCs, and moderate bacteria. This is consistent with a urinary tract infection. Her coronavirus testing was positive. Chest x-ray was normal without any infiltrates. She is currently on 2 L nasal cannula, and she is getting a saline IV at [facility]. Progress note dated 07/31/2021. 80-year-old female seen yesterday in consultation. The patient has history of diabetes, heart failure, renal disease, and was seen in the emergency department on July 29. The patient did test positive for coronavirus infection. She was previously in the hospital between June 20 and , at which time she had an exploratory laparotomy, right colectomy, ileostomy, umbilicus hernia repair, and mucous fistula. Currently, the patient's resting comfortably. She's on room air. Saturations are 99%. She is on D5 W at 75 mL an hour. Lab data today includes a sodium 132 potassium 4.6, chlorides 100, CO2 16, BUN 78, with a creatinine of 3.80. Glucose is 176. The patient is seen today 08/01/2021 in follow-up on the selective care unit. He is currently awake and alert in no acute distress. She is maintaining good O2 saturations in the 90s on room air. No IV fluids. She is been afebrile. Hemodynamically stable. Urine culture was positive for E. coli. Blood cultures revealed no growth. White count 10.4. Hemoglobin 9.5. Sodium 132. Potassium 4.5. Creatinine 3.42. BUN 71 glucose 184. She is continued on Zosyn. Anticoagulated with Eliquis. Objective - Vital Signs Vital signs: Vital Signs Temp 97.4 F L 08/01/21 09:10 Pulse 76 08/01/21 09:10 Resp 18 08/01/21 09:15 BP 113/74 08/01/21 09:10 Pulse Ox 97 08/01/21 09:10 Intake & Output 07/31/21 08/01/21 08/01/21 18:59 06:59 18:59 Intake Total 946 480 Output Total 550 225 Balance 396 -225 480 Weight 76 kg Intake: Intake, IV Titration 700 Amount Dextrose 5% in Water 1, 600 000 ml @ 75 mls/hr IV . [id number] STEPHANIE with Sodium Bicarb (1 Meq/ml) 150 ml Rx#:[id number] Piperacillin-Tazobactam 3 100 .375 gm In Sodium Chloride 0.9% 100 ml @ 25 mls/hr IVPB Q12HR STEPHANIE Rx #:[id number] Oral 246 480 Output: Urine 550 225 Other: Voiding Method Indwelling Catheter Indwelling Catheter Indwelling Catheter # Bowel Movements 1 - Exam GENERAL EXAM: Alert, weak, frail 80-year-old female, on room air, comfortable in no apparent distress. HEAD: Normocephalic. EYES: Normal reaction of pupils, equal size. NOSE: Clear with pink turbinates. THROAT: No erythema or exudates. NECK: No masses, no JVD. CHEST: No chest wall deformity. LUNGS: Equal air entry with no crackles, wheeze, rhonchi or dullness. CVS: S1 and S2 normal with no audible murmur, regular rhythm. ABDOMEN: No hepatosplenomegaly, normal bowel sounds, no guarding or rigidity. SPINE: No scoliosis or deformity SKIN: No rashes CENTRAL NERVOUS SYSTEM: No focal deficits, tone is normal in all 4 extremities. EXTREMITIES: There is no peripheral edema. No clubbing, no cyanosis. Peripheral pulses are intact. - Labs CBC & Chem 7: 08/01/21 07:06 08/01/21 07:06 Labs: Abnormal Lab Results - Last 24 Hours (Table) 07/31/21 07/31/21 08/01/21 Range/Units 16:55 20:06 06:00 RBC (3.80-5.40) m/uL Hgb (11.4-16.0) gm/dL Hct (34.0-46.0) % Neutrophils # (1.3-7.7) k/uL Sodium (137-145) mmol/L BUN (7-17) mg/dL Creatinine (0.52-1.04) mg/dL Glucose (74-99) mg/dL POC Glucose (mg/dL) 258 H 226 H 183 H (75-99) mg/dL Calcium (8.4-10.2) mg/dL Alkaline Phosphatase (38-126) U/L Total Protein (6.3-8.2) g/dL Albumin (3.5-5.0) g/dL 08/01/21 08/01/21 08/01/21 Range/Units 07:06 07:06 11:53 RBC 2.97 L (3.80-5.40) m/uL Hgb 9.5 L D (11.4-16.0) gm/dL Hct 29.3 L (34.0-46.0) % Neutrophils # 8.4 H (1.3-7.7) k/uL Sodium 132 L (137-145) mmol/L BUN 71 H (7-17) mg/dL Creatinine 3.42 H (0.52-1.04) mg/dL Glucose 184 H (74-99) mg/dL POC Glucose (mg/dL) 143 H (75-99) mg/dL Calcium 7.8 L (8.4-10.2) mg/dL Alkaline Phosphatase 131 H (38-126) U/L Total Protein 6.0 L (6.3-8.2) g/dL Albumin 2.8 L (3.5-5.0) g/dL Microbiology - Last 24 Hours (Table) 07/29/21 17:31 Blood Culture - Preliminary Blood No Growth after 48 hours 07/29/21 14:12 Urine Culture - Final Urine,Voided Escherichia coli Assessment and Plan Assessment: 1 Coronavirus infection, without obvious coronavirus associated pneumonia. 2 Weakness, and dehydration, secondary to coronavirus infection. 3 Urinary tract infection secondary to E. coli. 4 Acute kidney injury. 5 Recent exploratory laparotomy, right colectomy and ileostomy, with repair of umbilicus hernia, and mucous fistula, between June 20 and June 30, 2021. 6 History of CHF. 7 History of diabetes mellitus. 8 History of hyperlipidemia. 9 History of hypertension. 10 Osteoarthritis. Plan: The patient was seen and evaluated Stable and on room air We will see as needed I, the cosigning physician, performed a history & physical examination of the patient. Lungs sounds are clear. Maintaining good O2 saturations in the 90s on room air. I discussed the assessment and plan of care with my nurse practitioner, Sulma Arambula. I attest to the above note as dictated by her.
--- NOTE | 2021-08-01 14:01 | CDI ---
Documentation Clarification Form Date: 08/01/2021 01:45:56 PM From: Carolina Cain CCS, CCDS Admit Date: 07/29/2021 04:44:00 PM Patient Name: Natalia Yuen Visit Number: [id number] Discharge Date: ATTENTION: The Clinical Documentation Specialists (CDI) and [facility] Coding Staff appreciate your assistance in clarifying documentation. Please respond to the clarification below the line at the bottom and electronically sign. The CDI & [facility] Coding staff will review the response and follow-up if needed. Please note: Queries are made part of the Legal Health Record. If you have any questions, please contact the author of this message via ITS. Dr. Kalia Aggarwal: Atrial Fibrillation is documented in the 07/29 ED Note in the Clinical Impression and also in the Attending Physician Progress Notes on 07/30 through 08/01: Monitor Atrial Fibrillation rate controlled. Additional clarification regarding the type of atrial fibrillation is requested. History/Risk Factors per the 07/29 H/P: IDDM II with neuropathy, Recent bowel obstruction with perforation secondary to ischemic colitis requiring Ileostomy, CHF nos, CKD nos, Hyperlipidemia, Chronic edema, Postmenopausal bleeding and COPD. Clinical Indicators: Presented to the ED with Weakness. Hospitalized Jun. - due to a bowel obstruction and subsequent right colectomy and Ileostomy with repair of an Umbilical Hernia. Discharged to rehab, recently discharged to home. Admitted with Atrial Fibrillation, Acute Renal Failure, COVID 19, Hyperkalemia, Dehydration, Prerenal Azotemia and NSTEMI. 07/29 VS: T 97.6, P 93, R 20, BP 111/57, PO 92 RA - 97 2Lnc, BMI: 31.7 07/29 LAB: WBC 16.7, Neut 11.4; Na 129, K 6.0, Cl 96, CO2 13, BUN 100, Creatinine 5.41, GFR 7, Glucose 137, Alk [id number], Troponin 0.044, 0.039, 0.041 07/29 UA: cloudy, 2+ protein, Moderate blood, Large esterase, RBC 42, WBC >182 07/29 COVID: Positive 07/29 RAD: CXR: No acute cardiopulmonary process. 07/29 EKG: R 79 Atrial Fibrillation Treatment: Telemetry, Insulin sliding scale, IV NaCl 75 mls/hr q13H, IV Insulin x1, IV NaCl 999 mls/hr q1H, IV NaBicarb 50 ml x1, IV Rocephin, Home meds: Insulin sq, Pravachol, Ditropan, Lopressor, Prozac, PhosLo, Eliquis, Orazinc, Vit C Consults: Nephrology, Pulmonary, General Surgery, RUSSIAN HISTORY PROFESSOR, Rehab Trim Stencil Maker Please clarify the type of Atrial Fibrillation, if known: [ ] Chronic [ ] Permanent [ xx] Paroxysmal [ ] Persistent [ ] Other, please specify [ ] Unable to determine (Template Last Revised: December 2020) MTDD
--- NOTE | 2021-08-01 14:12 | CDI ---
Documentation Clarification Form Date: 08/01/2021 02:03:02 PM From: Carolina Cain CCS, CCDS Admit Date: 07/29/2021 04:44:00 PM Patient Name: Natalia Yuen Visit Number: [id number] Discharge Date: ATTENTION: The Clinical Documentation Specialists (CDI) and [facility] Coding Staff appreciate your assistance in clarifying documentation. Please respond to the clarification below the line at the bottom and electronically sign. The CDI & [facility] Coding staff will review the response and follow-up if needed. Please note: Queries are made part of the Legal Health Record. If you have any questions, please contact the author of this message via ITS. Dr. Renetta Frazier: Unspecified CKD is documented in the 07/29 History & Physical and in subsequent Attending Physician Progress Notes and in subsequent Nephrology Progress Notes: Patient is seen for followup for acute kidney injury on top of chronic kidney disease, without further specificity. Additional clarification regarding the stage of CKD is requested. History/Risk Factors per the 07/29 H/P: IDDM II with neuropathy, Recent bowel obstruction with perforation secondary to ischemic colitis requiring Ileostomy, CHF nos, CKD nos, Hyperlipidemia, Chronic edema, Postmenopausal bleeding and COPD. Clinical Indicators: Presented to the ED with Weakness. Hospitalized Jun. - due to a bowel obstruction and subsequent right colectomy and Ileostomy with repair of an Umbilical Hernia. Discharged to rehab, recently discharged to home. Admitted with Atrial Fibrillation, Acute Renal Failure, COVID 19, Hyperkalemia, Dehydration, Prerenal Azotemia and NSTEMI. 07/29 VS: T 97.6, P 93, R 20, BP 111/57, PO 92 RA - 97 2Lnc, BMI: 31.7 07/29 LAB: WBC 16.7, Neut 11.4; Na 129, K 6.0, Cl 96, CO2 13, BUN 100, Creatinine 5.41, GFR 7, Glucose 137, Alk [id number], Troponin 0.044, 0.039, 0.041 07/29 UA: cloudy, 2+ protein, Moderate blood, Large esterase, RBC 42, WBC >182 07/29 COVID: Positive BUN: 07/29: 100, 95. 07/30: 91. 07/31: 78. 08/01: 71 Creatinine: 07/29: 5.41, 4.59. 07/30: 4.26. 07/31: 3.80. 08/01: 3.42 GFR: 07/29: 7, 9. 07/30: 9. 07/31: 11. 08/01: 12 Historical GFR: No Historical GFR documented. 07/30 Renal US: No hydronephrosis bilaterally. Treatment: Telemetry, Insulin sliding scale, IV NaCl 75 mls/hr q13H, IV Insulin x1, IV NaCl 999 mls/hr q1H, IV NaBicarb 50 ml x1, IV Rocephin, Home meds: Insulin sq, Pravachol, Ditropan, Lopressor, Prozac, PhosLo, Eliquis, Orazinc, Vit C Consults: Nephrology, Pulmonary, General Surgery, ENERGY INFRASTRUCTURE ENGINEER, Rehab Supervisory Investigative Specialist Please clarify the stage of the CKD, if known: [ ] CKD Stage 5 (GFR <15) [ ] CKD Rule Out [ ] Other, please specify [ ] Unable to determine (Template Last revised: September 2020) 08/04 Query response documented in the 08/03 Nephrology Progress Note (Dr. Funes): CKD Stage 3b (CDI: ERIC) MTDD
--- NOTE | 2021-08-01 14:19 | CDI ---
Documentation Clarification Form Date: 08/01/2021 02:14:00 PM From: Carolina Cain CCS, CCDS Admit Date: 07/29/2021 04:44:00 PM Patient Name: Natalia Yuen Visit Number: [id number] Discharge Date: ATTENTION: The Clinical Documentation Specialists (CDI) and [facility] Coding Staff appreciate your assistance in clarifying documentation. Please respond to the clarification below the line at the bottom and electronically sign. The CDI & [facility] Coding staff will review the response and follow-up if needed. Please note: Queries are made part of the Legal Health Record. If you have any questions, please contact the author of this message via ITS. Dr. Arash Bailey: Anemia is documented in the 08/01 General Surgery Progress Note without further specificity. Please clarify if there is an additional diagnosis and/or clinical significance related to these lab values. History/Risk Factors per the 07/29 H/P: IDDM II with neuropathy, Recent bowel obstruction with perforation secondary to ischemic colitis requiring Ileostomy, CHF nos, CKD nos, Hyperlipidemia, Chronic edema, Postmenopausal bleeding and COPD. Clinical Indicators: Presented to the ED with Weakness. Hospitalized Jun. - due to a bowel obstruction and subsequent right colectomy and Ileostomy with repair of an Umbilical Hernia. Discharged to rehab, recently discharged to home. Admitted with Atrial Fibrillation, Acute Renal Failure, COVID 19, Hyperkalemia, Dehydration, Prerenal Azotemia and NSTEMI. 07/29 VS: T 97.6, P 93, R 20, BP 111/57, PO 92 RA - 97 2Lnc, BMI: 31.7 07/29 LAB: WBC 16.7, Neut 11.4; Na 129, K 6.0, Cl 96, CO2 13, BUN 100, Creatinine 5.41, GFR 7, Glucose 137, Alk [id number], Troponin 0.044, 0.039, 0.041 Hemoglobin: 07/29: 12.7. 07/30: 11.0. 08/01: 9.5 Hematocrit: 07/29: 38.8. 07/30: 35.1. 08/01: 29.3 07/29 UA: cloudy, 2+ protein, Moderate blood, Large esterase, RBC 42, WBC >182 07/29 COVID: Positive Treatment: Telemetry, Insulin sliding scale, IV NaCl 75 mls/hr q13H, IV Insulin x1, IV NaCl 999 mls/hr q1H, IV NaBicarb 50 ml x1, IV Rocephin, Home meds: Insulin sq, Pravachol, Ditropan, Lopressor, Prozac, PhosLo, Eliquis, Orazinc, Vit C Is there an additional diagnosis and/or clinical significance related to the above lab result/information: [ ] Acute blood loss anemia [ ] Acute on chronic blood loss anemia [ ] Chronic blood loss anemia [ ] Iron deficiency anemia [ ] Drug induced anemia [X] Anemia due to Chronic Disease [ ] Nutritional anemia [ ] Anemia of Chronic Kidney Disease [ ] Unable to determine [ ] Other, please specify (Template Last Revised: September 2020) MTDD
[2021-08-01 16:21] LABS: Appearance,Urine Cloudy (Clear); Bacteria,Urine Rare /hpf; Bilirubin,Urine Negative (Negative); Blood,Urine Small (Negative); Color,Urine Light Yellow; Glucose,Urine (UA) Negative (Negative); Ketones,Urine Negative (Negative); Leukocyte Esterase,Urine Large (Negative); Nitrite,Urine Negative (Negative); PH, Urine 5.5 (5.0-8.0); Protein,Urine 1+ (Negative); RBC,Urine 3 /hpf (0-5); Specific Gravity,Urine 1.014 (1.001-1.035); Squamous Epithelial Cell,Urine 1 /hpf (0-4); Urobilinogen,Urine <2.0 mg/dL (<2.0); WBC,Urine 14 /hpf (0-5)
[2021-08-01 16:51] LABS: Glucose,Whole Blood 132 mg/dL (75-99)
--- NOTE | 2021-08-01 17:04 | PN ---
PROGRESS NOTE Patient is seen for followup for acute kidney injury. Patient's renal function is slowly improving. Her creatinine is down to 3.4 from 5.4 on initial admission. She has been maintained on IV fluids. The patient was initially maintained on IV bicarb for severe metabolic acidosis. Her oral intake has improved. Blood pressure is currently not significantly low. EXAMINATION: Today blood pressure was 113/74, heart rate 76 per minute. Patient is afebrile. Examination of lower extremities shows no evidence of edema. Abdomen is soft, nontender. LAB: Show hemoglobin 9.5, sodium 132, potassium 4.5, BUN 71, serum creatinine 3.42. ASSESSMENT: 1. Acute kidney injury, acute tubular necrosis associated with volume depletion underlying COVID infection currently improving with IV hydration. UA shows evidence of urinary tract infection. 2. Urinary tract infection with urine culture growing Escherichia coli, maintained on antibiotics. 3. Metabolic acidosis on initial admission, currently improved. 4. Pelvic mass, being evaluated by RESPIRATORY THERAPY ASSISTANT. 5. Hyperkalemia on initial admission, now improved. 6. Chronic kidney disease with previous creatinine at 1.3 mg/dL on July 02 and June 30, 2021 with previous episodes of acute kidney injury. NKF stage 3B to 4. PLAN: Continue with IV fluids. Encourage increased oral intake. Continue antibiotics. MMODL / IJN: [id number] /
[2021-08-01] MEDS: SODIUM CHLORIDE 0.9% 1,000 ML IV SCH (17:17)
[2021-08-01] MEDS: PRAVASTATIN SODIUM 40 MG TAB PO SCH (20:02)
[2021-08-01 20:17] LABS: Glucose,Whole Blood 206 mg/dL (75-99)
[2021-08-02] MEDS: SODIUM CHLORIDE 0.9% 1,000 ML IV SCH ×3 (03:09→21:02)
[2021-08-02 06:16] LABS: Glucose,Whole Blood 77 mg/dL (75-99)
[2021-08-02] MEDS: INSULIN ASPART (NovoLOG) 100 UNIT/ML VIAL SQ SCH ×4 (06:17→21:01)
[2021-08-02] MEDS: INSULN ASP PRT/INSULIN ASPART 100 UNIT/ML 10 ML VIAL SQ SCH ×3 (06:17→17:01)
[2021-08-02] MEDS: CALCIUM ACETATE 667 MG TAB PO SCH ×3 (06:34→17:00)
[2021-08-02] MEDS: PANTOPRAZOLE 40 MG TABLET PO SCH (06:34)
[2021-08-02] MEDS: APIXABAN 2.5 MG TABLET PO SCH ×2 (09:00→21:01)
[2021-08-02] MEDS: ASCORBIC ACID 500 MG TAB PO SCH (09:00)
[2021-08-02] MEDS: FLUoxetine HCL 20 MG CAP PO SCH (09:01)
[2021-08-02] MEDS: ZINC SULFATE 220 MG CAP PO SCH (09:11)
[2021-08-02] MEDS: METOPROLOL TARTRATE 50 MG TAB PO SCH ×2 (09:11→21:01)
[2021-08-02] MEDS: PIPERACILLIN-TAZOBACTAM 3.375 GM in SODIUM CHLORIDE 0.9% 100 ML IVPB SCH ×2 (09:12→21:01)
--- NOTE | 2021-08-02 09:58 | P.CONS ---
History of Present Illness - Reason for Consult Consult date: 08/01/21 UTI Requesting physician: Thais Scott - Chief Complaint weakness x few days - History of Present Illness History of present illness : Patient is 80-year female presenting to the hospital 3 days ago for evaluation of generalized weakness this patient was recently admitted at this facility for bowel obstruction status post right colectomy and ileostomy with repair of the umbilical hernia number the patient subsequent discharged to the rehab subsequent discharged home patient complaining of feeling weak not getting out of the bed and has not been eating anything decreased appetite denies any abdominal pain no chest pain shortness of breath or cough on presentation to the hospital the patient was afebrile and no fever has been recorded subsequently patient did have white count of 16.7 that has normalized as of today patient did have elevated BUN/creatinine and that has improved patient did have positive UA on admission with a large leukocyte esterase more than 20 WBC culture has been finalized with an E. coli with resistant pattern no oral option available however sensitive to Zosyn the patient is currently on infectious disease was consulted regarding positive urine culture and need for antibiotic therapy patient also have a positive Covid test however the patient is currently on room air and did not have significant respiratory symptoms chest x-ray on admission was negative for acute cardiopulmonary process patient did have a abdominal ultrasound was negative for any hydronephrosis bilaterally, patient on today's evaluation is feeling s lightly better denies having any chest pain shortness with cough no abdominal pain no nausea vomiting no significant burning or frequency of urine Review of system: CONSTITUTIONAL: Positive for weakness denies fever. EYES: No complaint. ENT: No complaint. RESPIRATORY: No complaint. CARDIOVASCULAR: No complaint. GENITOURINARY: As per history of present illness. GASTROINTESTINAL: As per history of present illness. MUSCULOSKELETAL: No complaint. INTEGUMENTARY: No complaint. PSYCHOLOGIC: No complaint. ENDOCRINE: No complaint. NEUROLOGIC: No complaint. Past medical history : Reviewed, documented below Past surgical history : Reviewed, documented below Social history: Reviewed, documented below Medications: Reviewed, as documented below EXAMINATION: Vital sigans= Reviewed and documented below GENERAL DESCRIPTION: Elderly female up in the chair, no distress. No tachypnea or accessory muscle of respiration use. HEENT: Shows Pallor , no scleral icterus. Oral mucous membrane is dry. NECK: Trachea central, no thyromegaly. LUNGS: Unlabored breathing. Clear to auscultation anteriorly. No wheeze or crackle. HEART: S1, S2, regular rate and rhythm. ABDOMEN: Soft, no tenderness , guarding or rigidity EXTREMITIES: No edema of feet. SKIN: No rash, no masses palpable. NEUROLOGICAL: The patient is awake, alert, oriented x3, mood and affect normal. LABS AND RADIOLOGY: Reviewed results see below Assessment : 1-patient presented to hospital with generalized weakness decreased oral appetite which is likely multifactorial in this patient did have acute kidney injury possibly from dehydration as the patient seen clinical improving with IV fluid the patient also have a positive UA and did have elevated white count with a possible component of urinary tract infection from E. coli which has resistance pattern and overall normalization of the white count as of this morning with Zosyn Plan: 1-we will obtain a state UA which if has normalized no antibiotics however if the UA still positive recommend a 4-day course of IV cefepime 2 g daily which can be done through peripheral IV to finish a 7-day course of therapy this was communicated to the nurse practitioner working on discharge of this patient We will follow on clinical condition and cultures to further adjust medication if needed Thank you for this consultation we will follow the patient along with you Past Medical History Past Medical History: Heart Failure, Diabetes Mellitus, Hyperlipidemia, Hypertension, Osteoarthritis (OA), Renal Disease Additional Past Medical History / Comment(s): INSULIN- DIABETIC TYPE 2 , ACUTE KIDNEY FAILURE ,ILEOSTOMY,MUCOUS FISTULA, postmenopausal bleeding History of Any Multi-Drug Resistant Organisms: MRSA Year Discovered:: 11/18/18 MDRO Source:: URINE MRSA Past Surgical History: Section, Cholecystectomy Additional Past Surgical History / Comment(s): Bilateral cataract removals/lens implants, wrist surgery, ILEOSTOMY - JUN 2021 Past Anesthesia/Blood Transfusion Reactions: No Reported Reaction Additional Past Anesthesia/Blood Transfusion Reaction / Comm: Pt recieved blood in past without reaction (after childbirth) Past Psychological History: Anxiety, Depression Smoking Status: Former smoker Past Alcohol Use History: None Reported Past Drug Use History: None Reported - Past Family History Father Additional Family Medical History / Comment(s): Father from an industrial exposure at the age of 42 yrs. Mother Family Medical History: No Reported History Additional Family Medical History / Comment(s): Mother lived to be 95 yrs old. Medications and Allergies Home Medications Medication Instructions Recorded Confirmed Type FLUoxetine HCL [PROzac] 40 mg PO DAILY 10/18/18 07/29/21 History Metoprolol Tartrate [Lopressor] 50 mg PO BID 10/18/18 07/29/21 History Acetaminophen [Tylenol Extra 1,000 mg PO BID PRN 06/20/21 07/29/21 History Strength] Calcium Acetate [PhosLo] 667 mg PO TID-W/MEALS 06/20/21 07/29/21 History Pravastatin Sodium [Pravachol] 40 mg PO HS 06/20/21 07/29/21 History Apixaban [Eliquis] 2.5 mg PO BID 30 Days #60 tab 06/24/21 07/29/21 Rx Oxybutynin Chloride [Ditropan] 5 mg PO BID #0 06/30/21 07/29/21 Rx Insulin Lispro Protamin/Lispro See Protocol SQ AC-TID 07/29/21 07/29/21 History [humaLOG Mix 75-25 Kwikpen] Ascorbic Acid [Vitamin C] 1,000 mg PO DAILY tab 08/01/21 Rx INSULIN ASPART (NovoLOG) [NovoLOG 0 unit SQ ACHS ml 08/01/21 Rx (formulary)] Zinc Sulfate [Orazinc] 220 mg PO DAILY cap 08/01/21 Rx Allergies Allergy/AdvReac Type Severity Reaction Status Date / Time codeine AdvReac Nausea & Verified 07/29/21 18:41 Vomiting Physical Exam Vitals: Vital Signs Temp Pulse Resp BP Pulse Ox 08/01/21 09:15 18 08/01/21 09:10 97.4 F L 76 18 113/74 97 08/01/21 04:10 77 17 117/65 96 07/31/21 23:05 97.7 F 76 17 114/53 98 07/31/21 20:30 98.7 F 103 H 18 117/69 94 L 07/31/21 16:26 97.9 F 79 20 104/49 96 Intake and Output 07/31/21 08/01/21 08/01/21 22:59 06:59 14:59 Intake Total 118 240 Output Total 550 225 Balance -432 -225 240 Intake: Oral 118 240 Output: Urine 550 225 Other: Voiding Method Indwelling Catheter Indwelling Catheter Indwelling Catheter # Bowel Movements 1 Weight 76 kg Results CBC & Chem 7: 08/01/21 07:06 08/01/21 07:06 Labs: Abnormal Lab Results - Last 24 Hours (Table) 07/31/21 07/31/21 08/01/21 Range/Units 16:55 20:06 06:00 RBC (3.80-5.40) m/uL Hgb (11.4-16.0) gm/dL Hct (34.0-46.0) % Neutrophils # (1.3-7.7) k/uL Sodium (137-145) mmol/L BUN (7-17) mg/dL Creatinine (0.52-1.04) mg/dL Glucose (74-99) mg/dL POC Glucose (mg/dL) 258 H 226 H 183 H (75-99) mg/dL Calcium (8.4-10.2) mg/dL Alkaline Phosphatase (38-126) U/L Total Protein (6.3-8.2) g/dL Albumin (3.5-5.0) g/dL 08/01/21 08/01/21 08/01/21 Range/Units 07:06 07:06 11:53 RBC 2.97 L (3.80-5.40) m/uL Hgb 9.5 L D (11.4-16.0) gm/dL Hct 29.3 L (34.0-46.0) % Neutrophils # 8.4 H (1.3-7.7) k/uL Sodium 132 L (137-145) mmol/L BUN 71 H (7-17) mg/dL Creatinine 3.42 H (0.52-1.04) mg/dL Glucose 184 H (74-99) mg/dL POC Glucose (mg/dL) 143 H (75-99) mg/dL Calcium 7.8 L (8.4-10.2) mg/dL Alkaline Phosphatase 131 H (38-126) U/L Total Protein 6.0 L (6.3-8.2) g/dL Albumin 2.8 L (3.5-5.0) g/dL Microbiology - Last 24 Hours (Table) 07/29/21 17:31 Blood Culture - Preliminary Blood No Growth after 48 hours 07/29/21 14:12 Urine Culture - Final Urine,Voided Escherichia coli
--- NOTE | 2021-08-02 10:17 | P.PN ---
Subjective Patient is seen in follow-up for acute kidney injury. Renal function improving the last few days. Hemodynamically stable. Nonoliguric. Has a Beckett catheter. Denies chest pain or shortness of breath. On room air. Vital signs are stable. General: The patient appeared well nourished and normally developed. HEENT: Head exam is unremarkable. LUNGS: Breath sounds decreased. HEART: Rate and Rhythm are regular. ABDOMEN: Soft, no distention. EXTREMITITES: No edema. Objective - Vital Signs Vital signs: Vital Signs Temp 98.4 F 08/02/21 04:00 Pulse 70 08/02/21 04:00 Resp 18 08/02/21 04:00 BP 130/77 08/02/21 04:00 Pulse Ox 94 L 08/02/21 04:00 Intake & Output 08/01/21 08/02/21 08/02/21 18:59 06:59 18:59 Intake Total 660 520 Output Total 940 250 Balance -280 270 Weight 74.5 kg Intake: Intake, IV Titration 400 Amount Piperacillin-Tazobactam 3 100 .375 gm In Sodium Chloride 0.9% 100 ml @ 25 mls/hr IVPB Q12HR [facility] Rx #:[id number] Sodium Chloride 0.9% 1, 300 000 ml @ 75 mls/hr IV . [id number] [facility] Rx#:[id number] Oral 660 120 Output: Urine 765 Stool 175 250 Other: Voiding Method Indwelling Catheter # Voids 2 - Labs CBC & Chem 7: 08/01/21 07:06 08/01/21 07:06 Labs: Abnormal Lab Results - Last 24 Hours (Table) 08/01/21 08/01/21 08/01/21 Range/Units 11:53 15:51 16:49 POC Glucose (mg/dL) 143 H 132 H (75-99) mg/dL Urine Appearance Cloudy H (Clear) Urine Protein 1+ H (Negative) Urine Blood Small H (Negative) Ur Leukocyte Esterase Large H (Negative) Urine WBC 14 H (0-5) /hpf Urine Bacteria Rare H (None) /hpf 08/01/21 Range/Units 20:15 POC Glucose (mg/dL) 206 H (75-99) mg/dL Urine Appearance (Clear) Urine Protein (Negative) Urine Blood (Negative) Ur Leukocyte Esterase (Negative) Urine WBC (0-5) /hpf Urine Bacteria (None) /hpf Microbiology - Last 24 Hours (Table) 08/01/21 15:51 Urine Culture - Preliminary Urine,Catheterized 07/29/21 17:31 Blood Culture - Preliminary Blood No Growth after 72 hours Assessment and Plan Plan: Assessment: 1. Acute kidney injury secondary to ATN secondary to severe sepsis. Renal function improving. Creatinine 3.42 yesterday. Nonoliguric. 2. Chronic kidney disease stage IIIB with baseline creatinine 1.3-1.5 secondary to diabetic kidney disease. 3. E. coli UTI on antibiotics. 4. COVID-19 pneumonia. Currently on room air. 5. Pelvic mass. Being evaluated by [facility]. 6. Diabetes mellitus. 7. Hyponatremia secondary to acute kidney injury. Plan: Maintain IV fluids. Encourage oral intake. Avoid nephrotoxins. Continue to monitor renal function and urine output. Repeat labs in the morning. Check phosphorus level as well as she is on PhosLo.
[2021-08-02 12:27] LABS: Glucose,Whole Blood 145 mg/dL (75-99)
--- NOTE | 2021-08-02 14:35 | P.PN ---
Subjective Progress Note Date: 08/02/21 CHIEF COMPLAINT: Abdominal pain HISTORY OF PRESENT ILLNESS: The patient is a 80-year-old female status post right colectomy, ileostomy, COVID positive admitted for acute kidney injury. She is resting comfortably. She has anemia. She is tolerating diet. She was also diagnosed with a pelvic mass ROS: No fevers or chills. No new chest pain. No acute neurologic event. PHYSICAL EXAM: VITAL SIGNS: Reviewed CONSTITUTIONAL: Well developed and in no acute distress. EYES: Conjuctivae without sclera icterus. Extraocular movements grossly intact. HEAD, EARS, NOSE, THROAT: Moist buccal mucosa. Head is atraumatic, normocephalic. Hears conversational speech. No nasal drainage. RESPIRATORY: Non-labored respirations and equal bilateral excursions. CARDIOVASCULAR: 2+ radial pulses. ABDOMEN: No peritonitis MUSCULOSKELETAL: No gross deformity of the lower extremities noted. No clubbing. No cyanosis. SKIN: Good skin turgor. Well perfused. NEUROLOGIC: Cranial nerves II through XII grossly intact. No focal or lateralizing signs. PSYCH: Appropriate affect. Alert and oriented to person, place and time. CLINICAL LABS: Reviewed. WBC 10.4. Hgb 9.5 and low ASSESSMENT: 1. Pelvic mass 2. Anemia 3. Ileostomy PLAN: 1. Diet as tolerated 2. Outpatient work-up for pelvic mass per gynecology. Objective - Vital Signs Vital signs: Vital Signs Temp 98.2 F 08/02/21 08:00 Pulse 82 08/02/21 08:00 Resp 18 08/02/21 08:00 BP 120/71 08/02/21 08:00 Pulse Ox 96 08/02/21 08:00 Intake & Output 08/01/21 08/02/21 08/02/21 18:59 06:59 18:59 Intake Total 660 520 Output Total 940 250 Balance -280 270 Weight 74.5 kg Intake: Intake, IV Titration 400 Amount Piperacillin-Tazobactam 3 100 .375 gm In Sodium Chloride 0.9% 100 ml @ 25 mls/hr IVPB Q12HR [facility] Rx #:[id number] Sodium Chloride 0.9% 1, 300 000 ml @ 75 mls/hr IV . [id number] [facility] Rx#:[id number] Oral 660 120 Output: Urine 765 Stool 175 250 Other: Voiding Method Indwelling Catheter # Voids 2 - Labs CBC & Chem 7: 08/01/21 07:06 08/01/21 07:06 Labs: Abnormal Lab Results - Last 24 Hours (Table) 08/01/21 08/01/21 08/01/21 Range/Units 11:53 15:51 16:49 POC Glucose (mg/dL) 143 H 132 H (75-99) mg/dL Urine Appearance Cloudy H (Clear) Urine Protein 1+ H (Negative) Urine Blood Small H (Negative) Ur Leukocyte Esterase Large H (Negative) Urine WBC 14 H (0-5) /hpf Urine Bacteria Rare H (None) /hpf 08/01/21 Range/Units 20:15 POC Glucose (mg/dL) 206 H (75-99) mg/dL Urine Appearance (Clear) Urine Protein (Negative) Urine Blood (Negative) Ur Leukocyte Esterase (Negative) Urine WBC (0-5) /hpf Urine Bacteria (None) /hpf Microbiology - Last 24 Hours (Table) 08/01/21 15:51 Urine Culture - Preliminary Urine,Catheterized 07/29/21 17:31 Blood Culture - Preliminary Blood No Growth after 72 hours Assessment and Plan (1) Ileostomy in place Current Visit: Yes Status: Acute Code(s): Z93.2 - ILEOSTOMY STATUS SNOMED Code(s): 362218799 (2) Atrial fibrillation Current Visit: Yes Status: Acute Code(s): I48.91 - UNSPECIFIED ATRIAL FIBRILLATION SNOMED Code(s): 32200014 (3) COVID-19 Current Visit: Yes Status: Acute Code(s): U07.1 - COVID-19 SNOMED Code(s): 541471999 (4) History of pelvic mass Current Visit: Yes Status: Acute Code(s): Z87.898 - PERSONAL HISTORY OF OTHER SPECIFIED CONDITIONS SNOMED Code(s): 349892830 (5) Acute kidney injury Current Visit: No Status: Acute Code(s): N17.9 - ACUTE KIDNEY FAILURE, UNSPECIFIED SNOMED Code(s): 41567564 (6) Pneumatosis intestinalis Current Visit: No Status: Acute Code(s): K63.89 - OTHER SPECIFIED DISEASES OF INTESTINE SNOMED Code(s): 86570358
--- NOTE | 2021-08-02 15:29 | P.PN ---
Subjective Progress Note Date: 08/02/21 Principal diagnosis: Shortness of breath. Pulmonary consult dated 07/30/2021. 80-year-old female, with a history of diabetes, heart failure, renal disease, who was seen in the emergency department on 07/29/2021. We were consulted, because the patient tested positive for coronavirus on this admission. She was in the hospital between June 20 and June 30, at which time we saw her, because she had some bowel surgery. She had a colectomy and ileostomy and umbilicus hernia repair, and mucous fistula. The surgery was done by Dr. Bailey. Anyway, the patient comes into the emergency department because for the last 2 or 3 days, she's been profoundly weak. She apparently is on vaccinated. She tested positive for coronavirus on July 29. She's been sick for at least 1 week. Not really having much in the way of shortness of breath, cough or anything like that. Most of it relates to just weakness, poor appetite, and dehydration. White count 14.4, hemoglobin 11, hematocrit 35.1, platelet count 336,000. Sodium 132, potassium 4.4, chlorides 104, CO2 13, anion gap 15, BUN 91, and creatinine 4.26. Troponins were 0.039 and 0.042. Urine, showed moderate blood, large leukocyte esterase, moderate WBC clumps, greater than 182 WBCs, and moderate bacteria. This is consistent with a urinary tract infection. Her coronavirus testing was positive. Chest x-ray was normal without any infiltrates. She is currently on 2 L nasal cannula, and she is getting a saline IV at [facility]. Progress note dated 07/31/2021. 80-year-old female seen yesterday in consultation. The patient has history of diabetes, heart failure, renal disease, and was seen in the emergency department on July 29. The patient did test positive for coronavirus infection. She was previously in the hospital between June 20 and , at which time she had an exploratory laparotomy, right colectomy, ileostomy, umbilicus hernia repair, and mucous fistula. Currently, the patient's resting comfortably. She's on room air. Saturations are 99%. She is on D5 W at 75 mL an hour. Lab data today includes a sodium 132 potassium 4.6, chlorides 100, CO2 16, BUN 78, with a creatinine of 3.80. Glucose is 176. Progress note dated 08/02/2021. 80-year-old female, seen in room 377. The patient's resting comfortably. She's on room air. She's not receiving any IV fluids. The patient had a recent inpatient stay here from June 20 to June 30, at which time, she underwent an exploratory laparotomy, right colectomy, ileostomy, repair of umbilicus hernia, and mucous fistula. The patient is healing up nicely. She denies any respiratory issues. No new labs today other than a glucose of 145. Objective - Vital Signs Vital signs: Vital Signs Temp 98.2 F 08/02/21 08:00 Pulse 82 08/02/21 08:00 Resp 18 08/02/21 08:00 BP 120/71 08/02/21 08:00 Pulse Ox 96 08/02/21 08:00 Intake & Output 08/01/21 08/02/21 08/02/21 18:59 06:59 18:59 Intake Total 660 520 Output Total 940 250 Balance -280 270 Weight 74.5 kg Intake: Intake, IV Titration 400 Amount Piperacillin-Tazobactam 3 100 .375 gm In Sodium Chloride 0.9% 100 ml @ 25 mls/hr IVPB Q12HR [facility] Rx #:[id number] Sodium Chloride 0.9% 1, 300 000 ml @ 75 mls/hr IV . [id number] [facility] Rx#:[id number] Oral 660 120 Output: Urine 765 Stool 175 250 Other: Voiding Method Indwelling Catheter # Voids 2 - Exam No acute distress, oriented 3. Appears very weak and frail. Currently on room air. Room air saturation 96%. HEENT examination is grossly unremarkable. Neck supple. Full range of motion. No adenopathy thyromegaly or neck vein distention. Cardiovascular examination reveals regular rhythm rate. S1-S2 normal. No S3 or S4. No discernible murmur noted. Heart rate 82 bpm. Lungs reveal clear breath sounds. Breath sounds are equal bilaterally. No a dventitious lung sounds including wheezes rhonchi or crackles. Abdomen soft, with bowel sounds. She has a functioning ileostomy. Extremities are intact. No cyanosis clubbing or edema. Skin is without rash or lesion. Neurologic examination is brief but nonfocal. - Labs CBC & Chem 7: 08/01/21 07:06 08/01/21 07:06 Labs: Abnormal Lab Results - Last 24 Hours (Table) 08/01/21 08/01/21 08/01/21 Range/Units 15:51 16:49 20:15 POC Glucose (mg/dL) 132 H 206 H (75-99) mg/dL Urine Appearance Cloudy H (Clear) Urine Protein 1+ H (Negative) Urine Blood Small H (Negative) Ur Leukocyte Esterase Large H (Negative) Urine WBC 14 H (0-5) /hpf Urine Bacteria Rare H (None) /hpf 08/02/21 Range/Units 12:24 POC Glucose (mg/dL) 145 H (75-99) mg/dL Urine Appearance (Clear) Urine Protein (Negative) Urine Blood (Negative) Ur Leukocyte Esterase (Negative) Urine WBC (0-5) /hpf Urine Bacteria (None) /hpf Microbiology - Last 24 Hours (Table) 08/01/21 15:51 Urine Culture - Preliminary Urine,Catheterized 07/29/21 17:31 Blood Culture - Preliminary Blood No Growth after 72 hours Assessment and Plan Assessment: Coronavirus infection, without obvious coronavirus associated pneumonia. Weakness, and dehydration, secondary to coronavirus infection. Escherichia coli urinary tract infection Acute kidney injury. Recent exploratory laparotomy, right colectomy and ileostomy, with repair of umbilicus hernia, and mucous fistula, between June 20 and June 30, 2021. History of CHF. History of diabetes mellitus. History of hyperlipidemia. History of hypertension. Osteoarthritis. Plan: Plan dated 07/30/2021. The patient has coronavirus infection, without significant coronavirus associated pneumonia. She likely does not need supplemental oxygen. In addition, I don't believe she is a candidate for Decadron in my opinion, given the fact she is not having any respiratory issues. She is on Zosyn for suspected urinary tract infection. Vitamin C, vitamin D3, and zinc are appropriate. The patient should be properly hydrated. Nephrology should be consulted. Additional recommendations and suggestions are forthcoming.We will follow along and make recommendations where appropriate. Plan dated 07/31/2021. This is a patient who we saw yesterday in consultation. She tested positive for coronavirus, and I believe that was more incidental than anything else. She did not have any pulmonary complaints. She does not have coronavirus associated pneumonia. She's currently on room air. She is on antibiotics for suspected urinary tract infection. The Decadron will be discontinued. The vitamins are appropriate. We will follow moving forward, only as needed. No additional recommendations are made. Prognosis is guarded. Plan dated 08/02/2021. The patient did test positive for coronavirus infection, which I believe is more incidental than anything else. The patient really did not have any pulmonary complaints whatsoever. The patient's currently on room air. She's not receiving any IV fluids She was discovered to have an E. coli urinary tract infection. For that, she is on Zosyn. We will continue to follow make recommendations were appropriate. Decadron was discontinued. She remains on vitamins. She is on Eliquis for another reason. Time with Patient: Less than 30
[2021-08-02 17:09] LABS: Glucose,Whole Blood 116 mg/dL (75-99)
--- NOTE | 2021-08-02 18:00 | P.PN ---
Subjective Progress Note Date: 08/02/21 HISTORY OF PRESENT ILLNESS 80-year-old female one of Dr. Sanchez's patient with past medical history of CAD, hypertension, hyperlipidemia, recurrent urinary tract infection, who was hospitalized recently for recurrent abdominal pain and distention ended up going for Sigmoidoscopy and biopsy patient had obstruction ended up going for surgery with Dr. Leo paniagua in 2 weeks ago and was apparently discharged to [facility] on the [place] where patient spent up till the last few days. She presented to the emergency department today with worsening weakness fatigue and worsening symptoms. When she was in the hospital last time had right colectomy and ileostomy with repair of umbilical hernia had some exposure to COVID-19 in the hospital and [facility] as well. Patient being very sick today ended up coming to the emergency department was seen and evaluated surprisingly her urine was very positive her potassium was 6.0, BUN was 100 with creatinine of 5.41 white blood cell was 16.7 with left shifted troponin was mildly elevated UA and culture were positive and COVID-19 was positive. With the multi medical problem patient will be hospitalized will be seen nephrology, infectious disease, technical support technician possibly cardiology. Also we'll consult with Dr. gipson to make sure this is not a complication related to surgery. 07/30: Patient has been afebrile, heart rate 78, blood pressure 102/62, pulse ox 100% on 2 L nasal cannula. Repeat blood work revealed WBC 14.4, hemoglobin 11, platelet count 336. Sodium 132, potassium 4.4, chloride 104, CO2 13, BUN 91 and creatinine 4.26. Blood sugars are running between 96 and 121. Urine culture and blood culture in progress. Consults in place for nephrology, pulmonary medicine and general surgery. She and started on Zosyn. Patient is currently not on oxygen. She has output from ostomy. She does complain of decreased appetite. Discussed discharge plan with the patient and she would like to go to [facility] for subacute rehab for which social work is following. 07/31: Patient is complaining of nausea today and Zofran added. Patient has been afebrile, heart rate 83, blood pressure 110/54, pulse ox 99% on room air. Blood sugars are running in the low 200s to 318, a will be resumed back on Humalog 75/25 10 units 3 times daily with meals and continue NovoLog scale. We've added in consult for Dr. Bowen for possible inpatient rehab otherwise subacute rehab would be appropriate but patient verbalizes that she doesn't real ly want to go to subacute rehab. Social work and case management are following the patient. Stat lab work has been ordered today and repeat lab work ordered for tomorrow. 08/01: Patient has been seen by GARDENING SUPERVISOR for enlarged uterus/pelvic mass. Patient apparently has had several years of postmenopausal bleeding. Patient will need a Pap smear and endometrial biopsy which can be done in the outpatient setting after the patient is discharged. Or patient may undergo hysteroscopy with dilation and curettage in the OR during this admission. She is not currently having vaginal bleeding and no pelvic pain. Patient has been afebrile, heart rate 76, blood pressure 113/74, pulse ox 97% on room air. Repeat lab work reveals WBC 10.4, hemoglobin 9.5. Sodium 132, potassium 4.5, chloride 90, CO2 24, BUN 71 and creatinine 3.42. Blood sugars are running between 183 and 258. Alkaline phosphatase 131. Beckett catheter to be discontinued today. Will need clearance from Dr. Frazier for discharge. Urine culture came back with [id number] E. coli and consult added for Dr. Reddy. 08/02: Patient is comfortable, without any nausea no vomiting, has no O2 requirements currently, and is on room air, patient has no abnormal discomfort, GARDENING SUPERVISOR workup as an outpatient for the abdominal mass, she has declined this workup in the past, based on our clinic records, multidrug resistant E. coli noted, on urine culture, Dr. Duval has been consulted, with recommendations to repeat urine culture, and his postoperative, to finish Seprafilm for a total 7 day treatment. REVIEW OF SYSTEMS Constitutional: No fever, no chills, no night sweats. No weight change. No weakness, fatigue or lethargy. No daytime sleepiness. Slightly confused does not look in any respiratory distress. EENT: No headache. No blurred vision or double vision, no loss of vision. No loss of Hearing, no ringing in the ears, no dizziness. No nasal drainage or congestion. No epistaxis. No sore throat. Lungs: No shortness of breath, cough, no sputum production. No wheezing. Cardiovascular: Mild PND and orthopnea and no chest pain slight edema of the lower extremity mild palpitation with exertion. Abdominal: No abdominal pain. No vaginal bleeding today. Significant decrease in appetite. Genitourinary: No dysuria, increased frequency, urgency. No urinary retention. Decrease urine output. Musculoskeletal: No myalgias. No muscle weakness, no gait dysfunction, no frequent falls. No back pain. No neck pain. Integumentary: No wounds, no lesions. No rash or pruritus. No unusual bru ising. No change in hair or nails. Neurologic: No motor deficit visualized weakness had slight change mental status. Psychiatric: No depression. No anxiety. No mood swings. Endocrine: Noted abnormal blood sugars. No weight change. No excessive sweating or thirst. No cold intolerance. PHYSICAL EXAMINATION Gen: This is an elderly frail appearing 80-year-old female, resting in bed in no acute distress. HEENT: Head is atraumatic, normocephalic. Pupils equal, round. Sclerae is anicteric. NECK: Supple. No JVD. No lymphadenopathy. No thyromegaly. LUNGS: Decreased breath some bilateral rhonchi and mild expiratory wheezes. HEART: Irregular rate and rhythm. Monitor atrial fibrillation rate controlled. ABDOMEN: Abdomen soft, no rebound or rigidity. 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 Beckett catheter draining nicolette urine EXTREMITIES: No pedal edema. No calf tenderness. NEUROLOGICAL: Patient is awake, alert with slight confusion. Cranial nerves 2 through 12 are grossly intact. ASSESSMENT AND PLAN 1 acute respiratory failure: Secondary to COVID-19 pneumonitis, sepsis, acute kidney injury and recent history of bowel obstruction. Continue current treatment. 2. acute kidney failure: Secondary to acute tubular necrosis and hypoperfusion. Consult with nephrology appreciated.. 3. sepsis: Most likely from UTI infection also she had COVID-19. Continue fluid resuscitation and supportive care. 4. [id number] E. coli UTI. Continue Zosyn, consult Dr. Reddy. UA, with culture, if growth negative, treatment is completed, however if not, Dr. Reddy recommended 7 day total, for CEFEPIME 5 severe hyperkalemia with potassium of 6.0. Status post Kayexalate, continue to monitor. 6 recent history of bowel obstruction post right sided colectomy partial resection consult general surgery again to see if there is any complication specially with the current lab value. 7 recurrent abdominal pain was secondary to ischemic colitis and early perforation s/p surgery on previous admission. Consult Dr. Bailey appreciated, no plan for surgical intervention. 8 history of congestive heart failure. Control metoprolol. 9 type 2 diabetes mellitus uncontrolled with hyperglycemia. Patient will be resumed back on Humalog 75/25 at 10 units with meals and continue NovoLog scale. 10 acute kidney injury with chronic kidney disease: With creatinine much worse at this point continue hydration repeat CMP. 11 chronic neuropathy. 12. Metabolic acidosis secondary to renal failure. Nephrology consult, status post bicarb drip. 13. Hyperlipidemia. 14. chronic edema. 15. COPD. 16. Uterus/pelvic mass. Patient has been seen by GARDENING SUPERVISOR with plan for outpatient workup to include Pap smear and uterine biopsy 17. DVT prophylaxis. Eliquis. 18. GI prophylaxis: Patient be on pantoprazole po. CODE STATUS: Full code. DISCHARGE PLAN Subacute rehab and pending location Vital Signs Temp 98 F 08/02/21 12:00 Pulse 74 08/02/21 14:00 Resp 18 08/02/21 14:00 BP 110/64 08/02/21 12:00 Pulse Ox 95 08/02/21 12:00 Intake & Output 08/01/21 08/02/21 08/02/21 18:59 06:59 18:59 Intake Total 660 520 Output Total 940 250 300 Balance -280 270 -300 Weight 74.5 kg Intake: Intake, IV Titration 400 Amount Piperacillin-Tazobactam 3 100 .375 gm In Sodium Chloride 0.9% 100 ml @ 25 mls/hr IVPB Q12HR STEPHANIE Rx #:[id number] Sodium Chloride 0.9% 1, 300 000 ml @ 75 mls/hr IV . [id number] STEPHANIE Rx#:[id number] Oral 660 120 Output: Urine 765 300 Stool 175 250 Other: Voiding Method Indwelling Catheter # Voids 2 Laboratory Results WBC 10.4 k/uL (3.8-10.6) 08/01/21 07:06 RBC 2.97 m/uL (3.80-5.40) L 08/01/21 07:06 Hgb 9.5 gm/dL (11.4-16.0) L D 08/01/21 07:06 Hct 29.3 % (34.0-46.0) L 08/01/21 07:06 MCV 98.8 fL (80.0-100.0) 08/01/21 07:06 MCH 31.9 pg (25.0-35.0) 08/01/21 07:06 MCHC 32.3 g/dL (31.0-37.0) 08/01/21 07:06 RDW 14.8 % (11.5-15.5) 08/01/21 07:06 Plt Count 324 k/uL (150-450) 08/01/21 07:06 MPV 8.0 08/01/21 07:06 Neutrophils % 81 % 08/01/21 07:06 Lymphocytes % 15 % 08/01/21 07:06 Monocytes % 3 % 08/01/21 07:06 Eosinophils % 0 % 08/01/21 07:06 Basophils % 0 % 08/01/21 07:06 Neutrophils # 8.4 k/uL (1.3-7.7) H 08/01/21 07:06 Lymphocytes # 1.6 k/uL (1.0-4.8) 08/01/21 07:06 Monocytes # 0.3 k/uL (0-1.0) 08/01/21 07:06 Eosinophils # 0.0 k/uL (0-0.7) 08/01/21 07:06 Basophils # 0.0 k/uL (0-0.2) 08/01/21 07:06 Hypochromasia Slight 08/01/21 07:06 Macrocytosis Slight 08/01/21 07:06 PT 10.3 sec (9.0-12.0) 07/29/21 14:12 INR 1.0 (<1.2) 07/29/21 14:12 APTT 23.0 sec (22.0-30.0) 07/29/21 14:12 Sodium 132 mmol/L (137-145) L 08/01/21 07:06 Potassium 4.5 mmol/L (3.5-5.1) 08/01/21 07:06 Chloride 98 mmol/L (98-107) 08/01/21 07:06 Carbon Dioxide 24 mmol/L (22-30) 08/01/21 07:06 Anion Gap 10 mmol/L 08/01/21 07:06 BUN 71 mg/dL (7-17) H 08/01/21 07:06 Creatinine 3.42 mg/dL (0.52-1.04) H 08/01/21 07:06 Est GFR (CKD-EPI)AfAm 14 (>60 ml/min/1.73 sqM) 08/01/21 07:06 Est GFR (CKD-EPI)NonAf 12 (>60 ml/min/1.73 sqM) 08/01/21 07:06 Glucose 184 mg/dL (74-99) H 08/01/21 07:06 POC Glucose (mg/dL) 116 mg/dL (75-99) H 08/02/21 17:04 POC Glu Loss Prevention Lead Clayton Elkins 08/02/21 17:04 Plasma Lactic Acid Jeff 1.4 mmol/L (0.7-2.0) 07/29/21 14:12 Calcium 7.8 mg/dL (8.4-10.2) L 08/01/21 07:06 Magnesium 1.9 mg/dL (1.6-2.3) 07/31/21 11:11 Total Bilirubin 0.2 mg/dL (0.2-1.3) 08/01/21 07:06 AST 23 U/L (14-36) 08/01/21 07:06 ALT 13 U/L (4-34) 08/01/21 07:06 Alkaline Phosphatase 131 U/L (38-126) H 08/01/21 07:06 Troponin I 0.042 ng/mL (0.000-0.034) H* 07/29/21 22:28 Total Protein 6.0 g/dL (6.3-8.2) L 08/01/21 07:06 Albumin 2.8 g/dL (3.5-5.0) L 08/01/21 07:06 Urine Color Light Yellow 08/01/21 15:51 Urine Appearance Cloudy (Clear) H 08/01/21 15:51 Urine pH 5.5 (5.0-8.0) 08/01/21 15:51 Ur Specific Reardan 1.014 (1.001-1.035) 08/01/21 15:51 Urine Protein 1+ (Negative) H 08/01/21 15:51 Urine Glucose (UA) Negative (Negative) 08/01/21 15:51 Urine Ketones Negative (Negative) 08/01/21 15:51 Urine Blood Small (Negative) H 08/01/21 15:51 Urine Nitrite Negative (Negative) 08/01/21 15:51 Urine Bilirubin Negative (Negative) 08/01/21 15:51 Urine Urobilinogen <2.0 mg/dL (<2.0) 08/01/21 15:51 Ur Leukocyte Esterase Large (Negative) H 08/01/21 15:51 Urine RBC 3 /hpf (0-5) 08/01/21 15:51 Urine WBC 14 /hpf (0-5) H 08/01/21 15:51 Urine WBC Clumps Moderate /hpf (None) H 07/29/21 14:12 Ur Squamous Epith Cells 1 /hpf (0-4) 08/01/21 15:51 Urine Bacteria Rare /hpf (None) H 08/01/21 15:51 Coronavirus (PCR) Detected (Not Detectd) A 07/29/21 14:12 Objective - Vital Signs Vital signs: Vital Signs Temp 98 F 08/02/21 12:00 Pulse 74 08/02/21 14:00 Resp 18 08/02/21 14:00 BP 110/64 08/02/21 12:00 Pulse Ox 95 08/02/21 12:00 Intake & Output 08/01/21 08/02/21 08/02/21 18:59 06:59 18:59 Intake Total 660 520 Output Total 940 250 300 Balance -280 270 -300 Weight 74.5 kg Intake: Intake, IV Titration 400 Amount Piperacillin-Tazobactam 3 100 .375 gm In Sodium Chloride 0.9% 100 ml @ 25 mls/hr IVPB Q12HR STEPHANIE Rx #:[id number] Sodium Chloride 0.9% 1, 300 000 ml @ 75 mls/hr IV . [id number] STEPHANIE Rx#:[id number] Oral 660 120 Output: Urine 765 300 Stool 175 250 Other: Voiding Method Indwelling Catheter # Voids 2 - Labs CBC & Chem 7: 08/01/21 07:06 08/01/21 07:06 Labs: Abnormal Lab Results - Last 24 Hours (Table) 08/01/21 08/02/21 08/02/21 Range/Units 20:15 12:24 17:04 POC Glucose (mg/dL) 206 H 145 H 116 H (75-99) mg/dL Microbiology - Last 24 Hours (Table) 08/01/21 15:51 Urine Culture - Preliminary Urine,Catheterized 07/29/21 17:31 Blood Culture - Preliminary Blood No Growth after 72 hours
[2021-08-02 20:10] LABS: Glucose,Whole Blood 137 mg/dL (75-99)
[2021-08-02] MEDS: OXYBUTYNIN CHLORIDE 5 MG TAB PO SCH (21:01)
[2021-08-02] MEDS: PRAVASTATIN SODIUM 40 MG TAB PO SCH (21:01)
--- NOTE | 2021-08-02 23:32 | PN ---
PROGRESS NOTE DATE OF SERVICE: 08/02/2021 REASON FOR FOLLOWUP: E coli urinary tract infection. INTERVAL HISTORY: Patient is afebrile. The patient is breathing comfortably. Patient denies having any chest pain, shortness of breath, cough, no abdominal pain. No diarrhea. PHYSICAL EXAMINATION: Blood pressure 134/70 with a pulse of 80, temperature of 98. She is 96% on room air. General description is an elderly female up in the bed in no distress. Respiratory system: Unlabored breathing, clear to auscultation anteriorly. Heart S1, S2. Regular rate and rhythm. Abdomen: Soft. No tenderness. LABS: No new labs have been obtained today. Repeat urine is pending. DIAGNOSTIC IMPRESSION AND PLAN: Patient with drug-resistant E coli urinary tract infection. Clinically responding to Zosyn; to continue. Will wait for the repeat culture to finalize and monitor clinical course closely. MMODL / IJN: [id number] /
[2021-08-03 06:25] LABS: Glucose,Whole Blood 102 mg/dL (75-99)
[2021-08-03] MEDS: INSULIN ASPART (NovoLOG) 100 UNIT/ML VIAL SQ SCH ×4 (06:28→20:55)
[2021-08-03] MEDS: PANTOPRAZOLE 40 MG TABLET PO SCH (06:58)
[2021-08-03] MEDS: CALCIUM ACETATE 667 MG TAB PO SCH (06:58)
[2021-08-03 08:34] LABS: Calcium 8.1 mg/dL (8.4-10.2); Magnesium 1.3 mg/dL (1.6-2.3); Phosphorus 2.4 mg/dL (2.5-4.5)
[2021-08-03 08:37] LABS: Potassium 4.6 mmol/L (3.5-5.1)
[2021-08-03] MEDS: APIXABAN 2.5 MG TABLET PO SCH ×2 (08:53→20:56)
[2021-08-03] MEDS: FLUoxetine HCL 20 MG CAP PO SCH (08:53)
[2021-08-03] MEDS: METOPROLOL TARTRATE 50 MG TAB PO SCH ×2 (08:53→20:56)
[2021-08-03] MEDS: ASCORBIC ACID 500 MG TAB PO SCH (08:53)
[2021-08-03] MEDS: PIPERACILLIN-TAZOBACTAM 3.375 GM in SODIUM CHLORIDE 0.9% 100 ML IVPB SCH ×2 (08:54→20:56)
[2021-08-03] MEDS: OXYBUTYNIN CHLORIDE 5 MG TAB PO SCH ×2 (08:54→20:56)
[2021-08-03] MEDS: ZINC SULFATE 220 MG CAP PO SCH (08:54)
--- NOTE | 2021-08-03 09:14 | P.PN ---
Subjective Patient is seen in follow-up for acute kidney injury. Renal function improving the last few days. Hemodynamically stable. Nonoliguric. Denies chest pain or shortness of breath. On room air. No active complaints. Vital signs are stable. General: The patient appeared well nourished and normally developed. HEENT: Head exam is unremarkable. LUNGS: Breath sounds decreased. HEART: Rate and Rhythm are regular. ABDOMEN: Soft, no distention. EXTREMITITES: No edema. Objective - Vital Signs Vital signs: Vital Signs Temp 98.1 F 08/03/21 04:00 Pulse 88 08/03/21 04:00 Resp 18 08/03/21 04:00 BP 111/77 08/03/21 04:00 Pulse Ox 92 L 08/03/21 04:00 Intake & Output 08/02/21 08/03/21 08/03/21 18:59 06:59 18:59 Intake Total 100 970 Output Total 300 Balance -200 970 Weight 75 kg Intake: Oral 100 970 Output: Urine 300 Other: Voiding Method Bedpan # Voids 2 2 # Bowel Movements 0 - Labs CBC & Chem 7: 08/01/21 07:06 08/03/21 07:43 Labs: Abnormal Lab Results - Last 24 Hours (Table) 08/02/21 08/02/21 08/02/21 Range/Units 12:24 17:04 20:04 Sodium (137-145) mmol/L Carbon Dioxide (22-30) mmol/L BUN (7-17) mg/dL Creatinine (0.52-1.04) mg/dL Glucose (74-99) mg/dL POC Glucose (mg/dL) 145 H 116 H 137 H (75-99) mg/dL Calcium (8.4-10.2) mg/dL Phosphorus (2.5-4.5) mg/dL Magnesium (1.6-2.3) mg/dL 08/03/21 08/03/21 Range/Units 06:24 07:43 Sodium 133 L (137-145) mmol/L Carbon Dioxide 19 L (22-30) mmol/L BUN 48 H (7-17) mg/dL Creatinine 2.28 H (0.52-1.04) mg/dL Glucose 110 H (74-99) mg/dL POC Glucose (mg/dL) 102 H (75-99) mg/dL Calcium 8.1 L (8.4-10.2) mg/dL Phosphorus 2.4 L (2.5-4.5) mg/dL Magnesium 1.3 L (1.6-2.3) mg/dL Microbiology - Last 24 Hours (Table) 07/29/21 17:31 Blood Culture - Preliminary Blood No Growth after 96 hours Assessment and Plan Plan: Assessment: 1. Acute kidney injury secondary to ATN secondary to severe sepsis. Renal function improving. Creatinine 2.28 today. Nonoliguric. 2. Chronic kidney disease stage IIIB with baseline creatinine 1.3-1.5 secondary to diabetic kidney disease. 3. E. coli UTI on antibiotics. 4. COVID-19 pneumonia. Currently on room air. 5. Pelvic mass. Being evaluated by BATTERY TESTER. 6. Diabetes mellitus. 7. Hyponatremia secondary to acute kidney injury. Better. 8. Hypomagnesemia anemia from poor intake. 9. Hypophosphatemia from PhosLo and poor intake. 10. Metabolic acidosis secondary to acute kidney injury and IV fluids. Plan: Maintain IV fluids. Encouraged oral intake. Avoid nephrotoxins. Continue to monitor renal function and urine output. Repeat labs in the morning. Stop PhosLo. Replace magnesium. Add oral bicarbonate.
[2021-08-03 11:38] LABS: Glucose,Whole Blood 126 mg/dL (75-99)
[2021-08-03] MEDS: SODIUM BICARBONATE TAB 650 MG TAB PO SCH ×2 (13:38→20:58)
[2021-08-03] MEDS: MAGNESIUM SULFATE-D5W PMX 1 GM in DEXTROSE/WATER 1 100ML.BAG IVPB SCH ×2 (13:39→16:11)
[2021-08-03] MEDS: INSULN ASP PRT/INSULIN ASPART 100 UNIT/ML 10 ML VIAL SQ SCH ×3 (13:39→18:21)
--- NOTE | 2021-08-03 14:02 | P.PN ---
Subjective Progress Note Date: 08/03/21 Principal diagnosis: Shortness of breath. Pulmonary consult dated 07/30/2021. 80-year-old female, with a history of diabetes, heart failure, renal disease, who was seen in the emergency department on 07/29/2021. We were consulted, because the patient tested positive for coronavirus on this admission. She was in the hospital between June 20 and June 30, at which time we saw her, because she had some bowel surgery. She had a colectomy and ileostomy and umbilicus hernia repair, and mucous fistula. The surgery was done by Dr. Bailey. Anyway, the patient comes into the emergency department because for the last 2 or 3 days, she's been profoundly weak. She apparently is on vaccinated. She tested positive for coronavirus on July 29. She's been sick for at least 1 week. Not really having much in the way of shortness of breath, cough or anything like that. Most of it relates to just weakness, poor appetite, and dehydration. White count 14.4, hemoglobin 11, hematocrit 35.1, platelet count 336,000. Sodium 132, potassium 4.4, chlorides 104, CO2 13, anion gap 15, BUN 91, and creatinine 4.26. Troponins were 0.039 and 0.042. Urine, showed moderate blood, large leukocyte esterase, moderate WBC clumps, greater than 182 WBCs, and moderate bacteria. This is consistent with a urinary tract infection. Her coronavirus testing was positive. Chest x-ray was normal without any infiltrates. She is currently on 2 L nasal cannula, and she is getting a saline IV at [facility]. Progress note dated 07/31/2021. 80-year-old female seen yesterday in consultation. The patient has history of diabetes, heart failure, renal disease, and was seen in the emergency department on July 29. The patient did test positive for coronavirus infection. She was previously in the hospital between June 20 and , at which time she had an exploratory laparotomy, right colectomy, ileostomy, umbilicus hernia repair, and mucous fistula. Currently, the patient's resting comfortably. She's on room air. Saturations are 99%. She is on D5 W at 75 mL an hour. Lab data today includes a sodium 132 potassium 4.6, chlorides 100, CO2 16, BUN 78, with a creatinine of 3.80. Glucose is 176. Progress note dated 08/02/2021. 80-year-old female, seen in room 377. The patient's resting comfortably. She's on room air. She's not receiving any IV fluids. The patient had a recent inpatient stay here from June 20 to June 30, at which time, she underwent an exploratory laparotomy, right colectomy, ileostomy, repair of umbilicus hernia, and mucous fistula. The patient is healing up nicely. She denies any respiratory issues. No new labs today other than a glucose of 145. Progress note dated 08/03/2021. 80-year-old female again seen in room 377. The patient is currently not receiving any IV fluids, and is on room air. Lab work today includes a sodium 133, potassium 4.6, chlorides 100, CO2 19, BUN 48, and a creatinine of 2.28. Glucose is 126. The patient is resting comfortably without any distress or symptoms. She is hoping to be discharged soon. She was inpatient between June 20 and , at which time she underwent an exploratory laparotomy, right colectomy, ileostomy, repair of umbilicus hernia, and mucous fistula. The surgeon was Dr. Arash Bailey. Objective - Vital Signs Vital signs: Vital Signs Temp 98.1 F 08/03/21 04:00 Pulse 88 08/03/21 04:00 Resp 18 08/03/21 04:00 BP 111/77 08/03/21 04:00 Pulse Ox 92 L 08/03/21 04:00 Intake & Output 08/02/21 08/03/21 08/03/21 18:59 06:59 18:59 Intake Total 100 970 Output Total 300 150 Balance -200 970 -150 Weight 75 kg Intake: Oral 100 970 Output: Urine 300 0 Urine/Stool Mix 150 Other: Voiding Method Bedpan # Voids 2 2 # Bowel Movements 0 - Exam No acute distress, oriented 3. Appears very weak and frail. Currently on room air. Room air saturation 93%. HEENT examination is grossly unremarkable. Neck supple. Full range of motion. No adenopathy thyromegaly or neck vein distention. Cardiovascular examination reveals regular rhythm rate. S1-S2 normal. No S3 or S4. No discernible murmur noted. Heart rate 88 bpm. Lungs reveal clear breath sounds. Breath sounds are equal bilaterally. No adventitious lung sounds including wheezes rhonchi or crackles. Abdomen soft, with bowel sounds. She has a functioning ileostomy. Extremities are intact. No cyanosis clubbing or edema. Skin is without rash or lesion. Neurologic examination is brief but nonfocal. - Labs CBC & Chem 7: 08/01/21 07:06 08/03/21 07:43 Labs: Abnormal Lab Results - Last 24 Hours (Table) 08/02/21 08/02/21 08/03/21 Range/Units 17:04 20:04 06:24 Sodium (137-145) mmol/L Carbon Dioxide (22-30) mmol/L BUN (7-17) mg/dL Creatinine (0.52-1.04) mg/dL Glucose (74-99) mg/dL POC Glucose (mg/dL) 116 H 137 H 102 H (75-99) mg/dL Calcium (8.4-10.2) mg/dL Phosphorus (2.5-4.5) mg/dL Magnesium (1.6-2.3) mg/dL 08/03/21 08/03/21 Range/Units 07:43 11:08 Sodium 133 L (137-145) mmol/L Carbon Dioxide 19 L (22-30) mmol/L BUN 48 H (7-17) mg/dL Creatinine 2.28 H (0.52-1.04) mg/dL Glucose 110 H (74-99) mg/dL POC Glucose (mg/dL) 126 H (75-99) mg/dL Calcium 8.1 L (8.4-10.2) mg/dL Phosphorus 2.4 L (2.5-4.5) mg/dL Magnesium 1.3 L (1.6-2.3) mg/dL Microbiology - Last 24 Hours (Table) 08/01/21 15:51 Urine Culture - Final Urine,Catheterized 07/29/21 17:31 Blood Culture - Preliminary Blood No Growth after 96 hours Assessment and Plan Assessment: Coronavirus infection, without obvious coronavirus associated pneumonia. Weakness, and dehydration, secondary to coronavirus infection. Escherichia coli urinary tract infection Acute kidney injury. Recent exploratory laparotomy, right colectomy and ileostomy, with repair of umbilicus hernia, and mucous fistula, between June 20 and June 30, 2021. History of CHF. History of diabetes mellitus. History of hyperlipidemia. History of hypertension. Osteoarthritis. Plan: Plan dated 07/30/2021. The patient has coronavirus infection, without significant coronavirus associated pneumonia. She likely does not need supplemental oxygen. In addition, I don't believe she is a candidate for Decadron in my opinion, given the fact she is not having any respiratory issues. She is on Zosyn for suspected urinary tract infection. Vitamin C, vitamin D3, and zinc are appropriate. The patient should be properly hydrated. Nephrology should be consulted. Additional recommendations and suggestions are forthcoming.We will follow along and make recommendations where appropriate. Plan dated 07/31/2021. This is a patient who we saw yesterday in consultation. She tested positive for coronavirus, and I believe that was more incidental than anything else. She did not have any pulmonary complaints. She does not have coronavirus associated pneumonia. She's currently on room air. She is on antibiotics for suspected urinary tract infection. The Decadron will be discontinued. The vitamins are appropriate. We will follow moving forward, only as needed. No additional recommendations are made. Prognosis is guarded. Plan dated 08/02/2021. The patient did test positive for coronavirus infection, which I believe is more incidental than anything else. The patient really did not have any pulmonary complaints whatsoever. The patient's currently on room air. She's not receiving any IV fluids She was discovered to have an E. coli urinary tract infection. For that, she is on Zosyn. We will continue to follow make recommendations were appropriate. Decadron was discontinued. She remains on vitamins. She is on Eliquis for another reason. Plan dated 08/03/2021. The patient's doing well. She's not receiving any supplemental oxygen. She's not on any IV fluids. Her BUN and creatinine are 48 and 2.28 respectively. The rest of her lab work appears to be reasonable. She remains on Zosyn for her E. coli urinary tract infection. Additional recommendations and suggestions are forthcoming. I discontinued her Decadron. She does remain on vitamins. She is on Eliquis chronically for another reason. Time with Patient: Less than 30
--- NOTE | 2021-08-03 15:44 | P.PN ---
Subjective Progress Note Date: 08/03/21 CHIEF COMPLAINT: Abdominal pain HISTORY OF PRESENT ILLNESS: The patient is a 80-year-old female status post right colectomy, ileostomy, COVID positive admitted for acute kidney injury. She is sitting up in bed. No new complaints. She is tolerating diet. ROS: No fevers or chills. No new chest pain. No acute neurologic event. PHYSICAL EXAM: VITAL SIGNS: Reviewed CONSTITUTIONAL: Well developed and in no acute distress. EYES: Conjuctivae without sclera icterus. Extraocular movements grossly intact. HEAD, EARS, NOSE, THROAT: Moist buccal mucosa. Head is atraumatic, normocephalic. Hears conversational speech. No nasal drainage. RESPIRATORY: Non-labored respirations and equal bilateral excursions. CARDIOVASCULAR: 2+ radial pulses. ABDOMEN: No peritonitis MUSCULOSKELETAL: No gross deformity of the lower extremities noted. No clubbing. No cyanosis. SKIN: Good skin turgor. Well perfused. NEUROLOGIC: Cranial nerves II through XII grossly intact. No focal or lateralizing signs. PSYCH: Appropriate affect. Alert and oriented to person, place and time. CLINICAL LABS: Reviewed. Creatinine elevated 2.2 ASSESSMENT: 1. Pelvic mass 2. Anemia 3. Ileostomy 4. Stage 3 renal insufficency, chronic PLAN: 1. Acute kidney injury per nephrology 2. Diet as tolerated 3. Pelvic mass work-up with gynecology as outpatient. Objective - Vital Signs Vital signs: Vital Signs Temp 98.1 F 08/03/21 04:00 Pulse 88 08/03/21 04:00 Resp 18 08/03/21 04:00 BP 111/77 08/03/21 04:00 Pulse Ox 92 L 08/03/21 04:00 Intake & Output 08/02/21 08/03/21 08/03/21 18:59 06:59 18:59 Intake Total 100 970 Output Total 300 150 Balance -200 970 -150 Weight 75 kg Intake: Oral 100 970 Output: Urine 300 0 Urine/Stool Mix 150 Other: Voiding Method Bedpan # Voids 2 2 # Bowel Movements 0 - Labs CBC & Chem 7: 08/01/21 07:06 08/03/21 07:43 Labs: Abnormal Lab Results - Last 24 Hours (Table) 08/02/21 08/02/21 08/03/21 Range/Units 17:04 20:04 06:24 Sodium (137-145) mmol/L Carbon Dioxide (22-30) mmol/L BUN (7-17) mg/dL Creatinine (0.52-1.04) mg/dL Glucose (74-99) mg/dL POC Glucose (mg/dL) 116 H 137 H 102 H (75-99) mg/dL Calcium (8.4-10.2) mg/dL Phosphorus (2.5-4.5) mg/dL Magnesium (1.6-2.3) mg/dL 08/03/21 08/03/21 Range/Units 07:43 11:08 Sodium 133 L (137-145) mmol/L Carbon Dioxide 19 L (22-30) mmol/L BUN 48 H (7-17) mg/dL Creatinine 2.28 H (0.52-1.04) mg/dL Glucose 110 H (74-99) mg/dL POC Glucose (mg/dL) 126 H (75-99) mg/dL Calcium 8.1 L (8.4-10.2) mg/dL Phosphorus 2.4 L (2.5-4.5) mg/dL Magnesium 1.3 L (1.6-2.3) mg/dL Microbiology - Last 24 Hours (Table) 08/01/21 15:51 Urine Culture - Final Urine,Catheterized 07/29/21 17:31 Blood Culture - Preliminary Blood No Growth after 96 hours Assessment and Plan (1) Ileostomy in place Current Visit: Yes Status: Acute Code(s): Z93.2 - ILEOSTOMY STATUS SNOMED Code(s): 034959376 (2) Atrial fibrillation Current Visit: Yes Status: Acute Code(s): I48.91 - UNSPECIFIED ATRIAL FIBRILLATION SNOMED Code(s): 38839103 (3) COVID-19 Current Visit: Yes Status: Acute Code(s): U07.1 - COVID-19 SNOMED Code(s): 562375786 (4) History of pelvic mass Current Visit: Yes Status: Acute Code(s): Z87.898 - PERSONAL HISTORY OF OTHER SPECIFIED CONDITIONS SNOMED Code(s): 783942461 (5) Acute kidney injury Current Visit: No Status: Acute Code(s): N17.9 - ACUTE KIDNEY FAILURE, UNSPECIFIED SNOMED Code(s): 61085057 (6) Pneumatosis intestinalis Current Visit: No Status: Acute Code(s): K63.89 - OTHER SPECIFIED DISEASES OF INTESTINE SNOMED Code(s): 18456835 (7) Stage 3 chronic kidney disease due to benign hypertension Current Visit: Yes Status: Acute Code(s): I12.9 - HYPERTENSIVE CHRONIC KIDNEY DISEASE W STG 1-4/UNSP CHR KDNY; N18.30 - CHRONIC KIDNEY DISEASE, STAGE 3 UNSPECIFIED SNOMED Code(s): 306567454523585
[2021-08-03] MEDS: SODIUM CHLORIDE 0.9% 1,000 ML IV SCH (16:11)
[2021-08-03 16:43] LABS: Glucose,Whole Blood 136 mg/dL (75-99)
--- NOTE | 2021-08-03 16:48 | P.PN ---
Subjective Progress Note Date: 08/03/21 HISTORY OF PRESENT ILLNESS 80-year-old female one of Dr. Sanchez's patient with past medical history of CAD, hypertension, hyperlipidemia, recurrent urinary tract infection, who was hospitalized recently for recurrent abdominal pain and distention ended up going for Sigmoidoscopy and biopsy patient had obstruction ended up going for surgery with Dr. Leo paniagua in 2 weeks ago and was apparently discharged to [facility] on the [place] where patient spent up till the last few days. She presented to the emergency department today with worsening weakness fatigue and worsening symptoms. When she was in the hospital last time had right colectomy and ileostomy with repair of umbilical hernia had some exposure to COVID-19 in the hospital and [facility] as well. Patient being very sick today ended up coming to the emergency department was seen and evaluated surprisingly her urine was very positive her potassium was 6.0, BUN was 100 with creatinine of 5.41 white blood cell was 16.7 with left shifted troponin was mildly elevated UA and culture were positive and COVID-19 was positive. With the multi medical problem patient will be hospitalized will be seen nephrology, infectious disease, mental health specialist possibly cardiology. Also we'll consult with Dr. gipson to make sure this is not a complication related to surgery. 07/30: Patient has been afebrile, heart rate 78, blood pressure 102/62, pulse ox 100% on 2 L nasal cannula. Repeat blood work revealed WBC 14.4, hemoglobin 11, platelet count 336. Sodium 132, potassium 4.4, chloride 104, CO2 13, BUN 91 and creatinine 4.26. Blood sugars are running between 96 and 121. Urine culture and blood culture in progress. Consults in place for nephrology, pulmonary medicine and general surgery. She and started on Zosyn. Patient is currently not on oxygen. She has output from ostomy. She does complain of decreased appetite. Discussed discharge plan with the patient and she would like to go to [facility] for subacute rehab for which social work is following. 07/31: Patient is complaining of nausea today and Zofran added. Patient has been afebrile, heart rate 83, blood pressure 110/54, pulse ox 99% on room air. Blood sugars are running in the low 200s to 318, a will be resumed back on Humalog 75/25 10 units 3 times daily with meals and continue NovoLog scale. We've added in consult for Dr. Bowen for possible inpatient rehab otherwise subacute rehab would be appropriate but patient verbalizes that she doesn't real ly want to go to subacute rehab. Social work and case management are following the patient. Stat lab work has been ordered today and repeat lab work ordered for tomorrow. 08/01: Patient has been seen by SENIOR DEVELOPER for enlarged uterus/pelvic mass. Patient apparently has had several years of postmenopausal bleeding. Patient will need a Pap smear and endometrial biopsy which can be done in the outpatient setting after the patient is discharged. Or patient may undergo hysteroscopy with dilation and curettage in the OR during this admission. She is not currently having vaginal bleeding and no pelvic pain. Patient has been afebrile, heart rate 76, blood pressure 113/74, pulse ox 97% on room air. Repeat lab work reveals WBC 10.4, hemoglobin 9.5. Sodium 132, potassium 4.5, chloride 90, CO2 24, BUN 71 and creatinine 3.42. Blood sugars are running between 183 and 258. Alkaline phosphatase 131. Beckett catheter to be discontinued today. Will need clearance from Dr. Frazier for discharge. Urine culture came back with [id number] E. coli and consult added for Dr. Reddy. 08/02: Patient is comfortable, without any nausea no vomiting, has no O2 requirements currently, and is on room air, patient has no abnormal discomfort, SENIOR DEVELOPER workup as an outpatient for the abdominal mass, she has declined this workup in the past, based on our clinic records, multidrug resistant E. coli noted, on urine culture, Dr. Duval has been consulted, with recommendations to repeat urine culture, and his postoperative, to finish Seprafilm for a total 7 day treatment. 08/03: Patient is at baseline, we discussed to her the need for subacute rehab, and is willing to participate, if she goes back to [facility] in the [place], they do not require a repeat testing for PCR, however they would want to keep her yin the hospital until10 days has passed from the [facility] with testing. Patient also noted to have vesicular rash, in the right occiput, for which infectious diseases has started her on valacyclovir 1 g daily patient's on room air,T-max of 99 1, vitals are stable,medication supplementation, I estimate admission levels 1.3. Creatinine is 2.2 CO2 of 19, start SODIUM bicarb, NEPHROLOGY FOLLOWING REVIEW OF SYSTEMS Constitutional: No fever, no chills, no night sweats. No weight change. No weakness, fatigue or lethargy. No daytime sleepiness. Slightly confused does n ot look in any respiratory distress. EENT: No headache. No blurred vision or double vision, no loss of vision. No loss of Hearing, no ringing in the ears, no dizziness. No nasal drainage or congestion. No epistaxis. No sore throat. Lungs: No shortness of breath, cough, no sputum production. No wheezing. Cardiovascular: Mild PND and orthopnea and no chest pain slight edema of the lower extremity mild palpitation with exertion. Abdominal: No abdominal pain. No vaginal bleeding today. Significant decrease in appetite. Genitourinary: No dysuria, increased frequency, urgency. No urinary retention. Decrease urine output. Musculoskeletal: No myalgias. No muscle weakness, no gait dysfunction, no frequent falls. No back pain. No neck pain. Integumentary: No wounds, no lesions. No rash or pruritus. No unusual bruising. No change in hair or nails. Neurologic: No motor deficit visualized weakness had slight change mental status. Psychiatric: No depression. No anxiety. No mood swings. Endocrine: Noted abnormal blood sugars. No weight change. No excessive sweating or thirst. No cold intolerance. PHYSICAL EXAMINATION Gen: This is an elderly frail appearing 80-year-old female, resting in bed in no acute distress. HEENT: Head is atraumatic, normocephalic. Pupils equal, round. Sclerae is anicteric. NECK: Supple. No JVD. No lymphadenopathy. No thyromegaly. LUNGS: Decreased breath some bilateral rhonchi and mild expiratory wheezes. HEART: Irregular rate and rhythm. Monitor atrial fibrillation rate controlled. ABDOMEN: Abdomen soft, no rebound or rigidity. 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 Beckett catheter draining nicolette urine EXTREMITIES: No pedal edema. No calf tenderness. NEUROLOGICAL: Patient is awake, alert with slight confusion. Cranial nerves 2 through 12 are grossly intact. ASSESSMENT AND PLAN 1 acute respiratory failure: Secondary to COVID-19 pneumonitis, sepsis, acute kidney injury and recent history of bowel obstruction. Continue current tr eatment. 2. acute kidney failure: Secondary to acute tubular necrosis and hypoperfusion. Consult with nephrology appreciated.. 3. sepsis: Most likely from UTI infection also she had COVID-19. Continue fluid resuscitation and supportive care. 4. [id number] E. coli UTI. Continue Zosyn, consult Dr. Reddy. UA, with culture, if growth negative, treatment is completed, however if not, Dr. Reddy recommended 7 day total, for CEFEPIME 5 severe hyperkalemia with potassium of 6.0. Status post Kayexalate, continue to monitor. 6 recent history of bowel obstruction post right sided colectomy partial resection consult general surgery again to see if there is any complication specially with the current lab value. 7 recurrent abdominal pain was secondary to ischemic colitis and early perforation s/p surgery on previous admission. Consult Dr. Bailey appreciated, no plan for surgical intervention. 8 history of congestive heart failure. Control metoprolol. 9 type 2 diabetes mellitus uncontrolled with hyperglycemia. Patient will be resumed back on Humalog 75/25 at 10 units with meals and continue NovoLog scale. 10 acute kidney injury with chronic kidney disease: With creatinine much worse at this point continue hydration repeat CMP. 11 chronic neuropathy. 12. Metabolic acidosis secondary to renal failure. Nephrology consult, status post bicarb drip. 13. Hyperlipidemia. 14. chronic edema. 15. COPD. 16. Uterus/pelvic mass. Patient has been seen by SENIOR DEVELOPER with plan for outpatient workup to include Pap smear and uterine biopsy 17. DVT prophylaxis. Eliquis. 18. GI prophylaxis: Patient be on pantoprazole po. CODE STATUS: Full code. DISCHARGE PLAN Subacute rehab and pending location Laboratory Results WBC 10.4 k/uL (3.8-10.6) 08/01/21 07:06 RBC 2.97 m/uL (3.80-5.40) L 08/01/21 07:06 Hgb 9.5 gm/dL (11.4-16.0) L D 08/01/21 07:06 Hct 29.3 % (34.0-46.0) L 08/01/21 07:06 MCV 98.8 fL (80.0-100.0) 08/01/21 07:06 MCH 31.9 pg (25.0-35.0) 08/01/21 07:06 MCHC 32.3 g/dL (31.0-37.0) 08/01/21 07:06 RDW 14.8 % (11.5-15.5) 08/01/21 07:06 Plt Count 324 k/uL (150-450) 08/01/21 07:06 MPV 8.0 08/01/21 07:06 Neutrophils % 81 % 08/01/21 07:06 Lymphocytes % 15 % 08/01/21 07:06 Monocytes % 3 % 08/01/21 07:06 Eosinophils % 0 % 08/01/21 07:06 Basophils % 0 % 08/01/21 07:06 Neutrophils # 8.4 k/uL (1.3-7.7) H 08/01/21 07:06 Lymphocytes # 1.6 k/uL (1.0-4.8) 08/01/21 07:06 Monocytes # 0.3 k/uL (0-1.0) 08/01/21 07:06 Eosinophils # 0.0 k/uL (0-0.7) 08/01/21 07:06 Basophils # 0.0 k/uL (0-0.2) 08/01/21 07:06 Hypochromasia Slight 08/01/21 07:06 Macrocytosis Slight 08/01/21 07:06 PT 10.3 sec (9.0-12.0) 07/29/21 14:12 INR 1.0 (<1.2) 07/29/21 14:12 APTT 23.0 sec (22.0-30.0) 07/29/21 14:12 Sodium 132 mmol/L (137-145) L 08/01/21 07:06 Potassium 4.5 mmol/L (3.5-5.1) 08/01/21 07:06 Chloride 98 mmol/L (98-107) 08/01/21 07:06 Carbon Dioxide 24 mmol/L (22-30) 08/01/21 07:06 Anion Gap 10 mmol/L 08/01/21 07:06 BUN 71 mg/dL (7-17) H 08/01/21 07:06 Creatinine 3.42 mg/dL (0.52-1.04) H 08/01/21 07:06 Est GFR (CKD-EPI)AfAm 14 (>60 ml/min/1.73 sqM) 08/01/21 07:06 Est GFR (CKD-EPI)NonAf 12 (>60 ml/min/1.73 sqM) 08/01/21 07:06 Glucose 184 mg/dL (74-99) H 08/01/21 07:06 POC Glucose (mg/dL) 116 mg/dL (75-99) H 08/02/21 17:04 POC Glu Nuclear Waste Management Engineer Clayton Elkins 08/02/21 17:04 Plasma Lactic Acid Jeff 1.4 mmol/L (0.7-2.0) 07/29/21 14:12 Calcium 7.8 mg/dL (8.4-10.2) L 08/01/21 07:06 Magnesium 1.9 mg/dL (1.6-2.3) 07/31/21 11:11 Total Bilirubin 0.2 mg/dL (0.2-1.3) 08/01/21 07:06 AST 23 U/L (14-36) 08/01/21 07:06 ALT 13 U/L (4-34) 08/01/21 07:06 Alkaline Phosphatase 131 U/L (38-126) H 08/01/21 07:06 Troponin I 0.042 ng/mL (0.000-0.034) H* 07/29/21 22:28 Total Protein 6.0 g/dL (6.3-8.2) L 08/01/21 07:06 Albumin 2.8 g/dL (3.5-5.0) L 08/01/21 07:06 Urine Color Light Yellow 08/01/21 15:51 Urine Appearance Cloudy (Clear) H 08/01/21 15:51 Urine pH 5.5 (5.0-8.0) 08/01/21 15:51 Ur Specific Dinosaur 1.014 (1.001-1.035) 08/01/21 15:51 Urine Protein 1+ (Negative) H 08/01/21 15:51 Urine Glucose (UA) Negative (Negative) 08/01/21 15:51 Urine Ketones Negative (Negative) 08/01/21 15:51 Urine Blood Small (Negative) H 08/01/21 15:51 Urine Nitrite Negative (Negative) 08/01/21 15:51 Urine Bilirubin Negative (Negative) 08/01/21 15:51 Urine Urobilinogen <2.0 mg/dL (<2.0) 08/01/21 15:51 Ur Leukocyte Esterase Large (Negative) H 08/01/21 15:51 Urine RBC 3 /hpf (0-5) 08/01/21 15:51 Urine WBC 14 /hpf (0-5) H 08/01/21 15:51 Urine WBC Clumps Moderate /hpf (None) H 07/29/21 14:12 Ur Squamous Epith Cells 1 /hpf (0-4) 08/01/21 15:51 Urine Bacteria Rare /hpf (None) H 08/01/21 15:51 Coronavirus (PCR) Detected (Not Detectd) A 07/29/21 14:12 Vital Signs Temp 98.1 F 08/03/21 04:00 Pulse 88 08/03/21 04:00 Resp 18 08/03/21 04:00 BP 111/77 08/03/21 04:00 Pulse Ox 92 L 08/03/21 04:00 Intake & Output 08/02/21 08/03/21 08/03/21 18:59 06:59 18:59 Intake Total 100 970 Output Total 300 150 Balance -200 970 -150 Weight 75 kg Intake: Oral 100 970 Output: Urine 300 0 Urine/Stool Mix 150 Other: Voiding Method Bedpan # Voids 2 2 # Bowel Movements 0 Current Medications Acetaminophen (Acetaminophen Tab 325 Mg Tab) 650 mg PO Q6HR PRN PRN Reason: Mild Pain or Fever > 100.5 Last Admin: 08/02/21 21:00 Dose: 650 mg Documented by: Acetaminophen (Acetaminophen Tab 500 Mg Tab) 1,000 mg PO BID PRN PRN Reason: Pain Apixaban (Apixaban 2.5 Mg Tablet) 2.5 mg PO BID [facility]; Protocol Last Admin: 08/03/21 08:53 Dose: 2.5 mg Documented by: Ascorbic Acid (Ascorbic Acid 500 Mg Tab) 1,000 mg PO DAILY [facility] Last Admin: 08/03/21 08:53 Dose: 1,000 mg Documented by: Fluoxetine HCl (Fluoxetine Hcl 20 Mg Cap) 40 mg PO DAILY [facility] Last Admin: 08/03/21 08:53 Dose: 40 mg Documented by: Piperacillin Sod/Tazobactam (Sod 3.375 gm/ Sodium Chloride) 100 mls @ 25 mls/hr IVPB Q12HR [facility] Last Admin: 08/03/21 08:54 Dose: 25 mls/hr Documented by: Sodium Chloride (Saline 0.9%) 1,000 mls @ 75 mls/hr IV .[id number] [facility] Last Admin: 08/03/21 16:11 Dose: 75 mls/hr Documented by: Insulin Aspart (Insulin Aspart (Novolog) 100 Unit/Ml Vial) 0 unit SQ ACHS [facility]; Protocol Last Admin: 08/03/21 13:39 Dose: Not Given Documented by: Insulin Aspart (Insuln Asp Prt/Insulin Aspart 100 Unit/Ml 10 Ml Vial) 10 unit SQ AC-TID [facility] Last Admin: 08/03/21 13:40 Dose: Not Given Documented by: Magnesium Oxide (Magnesium Oxide 400 Mg Tab) 400 mg PO DAILY [facility] Metoprolol Tartrate (Metoprolol Tartrate 50 Mg Tab) 50 mg PO BID [facility] Last Admin: 08/03/21 08:53 Dose: 50 mg Documented by: Naloxone HCl (Naloxone 0.4 Mg/Ml 1 Ml Vial) 0.2 mg IV Q2M PRN PRN Reason: Opioid Reversal Ondansetron HCl (Ondansetron 4 Mg/2 Ml Vial) 4 mg IVP Q6HR PRN PRN Reason: Nausea And Vomiting Last Admin: 07/31/21 11:40 Dose: 4 mg Documented by: Oxybutynin Chloride (Oxybutynin Chloride 5 Mg Tab) 5 mg PO BID [facility] Last Admin: 08/03/21 08:54 Dose: 5 mg Documented by: Pantoprazole Sodium (Pantoprazole 40 Mg Tablet) 40 mg PO [id number]-[id number] [facility] Last Admin: 08/03/21 06:58 Dose: 40 mg Documented by: Pravastatin Sodium (Pravastatin Sodium 40 Mg Tab) 40 mg PO HS [facility] Last Admin: 08/02/21 21:01 Dose: 40 mg Documented by: Sodium Bicarbonate (Sodium Bicarbonate Tab 650 Mg Tab) 650 mg PO BID [facility] Last Admin: 08/03/21 13:38 Dose: 650 mg Documented by: Valacyclovir HCl (Valacyclovir Hcl 1,000 Mg Tablet) 1,000 mg PO DAILY [facility] Zinc Sulfate (Zinc Sulfate 220 Mg Cap) 220 mg PO DAILY [facility] Last Admin: 08/03/21 08:54 Dose: 220 mg Documented by: Objective - Vital Signs Vital signs: Vital Signs Temp 98.1 F 08/03/21 04:00 Pulse 88 08/03/21 04:00 Resp 18 08/03/21 04:00 BP 111/77 08/03/21 04:00 Pulse Ox 92 L 08/03/21 04:00 Intake & Output 08/02/21 08/03/21 08/03/21 18:59 06:59 18:59 Intake Total 100 970 Output Total 300 150 Balance -200 970 -150 Weight 75 kg Intake: Oral 100 970 Output: Urine 300 0 Urine/Stool Mix 150 Other: Voiding Method Bedpan # Voids 2 2 # Bowel Movements 0 - Labs CBC & Chem 7: 08/01/21 07:06 08/03/21 07:43 Labs: Abnormal Lab Results - Last 24 Hours (Table) 08/02/21 08/02/21 08/03/21 Range/Units 17:04 20:04 06:24 Sodium (137-145) mmol/L Carbon Dioxide (22-30) mmol/L BUN (7-17) mg/dL Creatinine (0.52-1.04) mg/dL Glucose (74-99) mg/dL POC Glucose (mg/dL) 116 H 137 H 102 H (75-99) mg/dL Calcium (8.4-10.2) mg/dL Phosphorus (2.5-4.5) mg/dL Magnesium (1.6-2.3) mg/dL 08/03/21 08/03/21 Range/Units 07:43 11:08 Sodium 133 L (137-145) mmol/L Carbon Dioxide 19 L (22-30) mmol/L BUN 48 H (7-17) mg/dL Creatinine 2.28 H (0.52-1.04) mg/dL Glucose 110 H (74-99) mg/dL POC Glucose (mg/dL) 126 H (75-99) mg/dL Calcium 8.1 L (8.4-10.2) mg/dL Phosphorus 2.4 L (2.5-4.5) mg/dL Magnesium 1.3 L (1.6-2.3) mg/dL Microbiology - Last 24 Hours (Table) 08/01/21 15:51 Urine Culture - Final Urine,Catheterized 07/29/21 17:31 Blood Culture - Preliminary Blood No Growth after 96 hours
[2021-08-03] MEDS: valACYclovir HCL 1,000 MG TABLET PO SCH (18:21)
[2021-08-03] MEDS: MAGNESIUM OXIDE 400 MG TAB PO SCH (18:21)
[2021-08-03 20:03] LABS: Glucose,Whole Blood 186 mg/dL (75-99)
[2021-08-03] MEDS: PRAVASTATIN SODIUM 40 MG TAB PO SCH (20:56)
[2021-08-04] MEDS: SODIUM CHLORIDE 0.9% 1,000 ML IV SCH (06:02)
[2021-08-04 06:12] LABS: Glucose,Whole Blood 116 mg/dL (75-99)
[2021-08-04] MEDS: INSULIN ASPART (NovoLOG) 100 UNIT/ML VIAL SQ SCH ×2 (06:15→12:52)
[2021-08-04] MEDS: PANTOPRAZOLE 40 MG TABLET PO SCH (06:21)
[2021-08-04 07:56] LABS: Calcium 7.9 mg/dL (8.4-10.2)
[2021-08-04 08:29] VITALS: TEMP 98.2
[2021-08-04] MEDS: OXYBUTYNIN CHLORIDE 5 MG TAB PO SCH (08:30)
[2021-08-04] MEDS: SODIUM BICARBONATE TAB 650 MG TAB PO SCH (08:30)
[2021-08-04] MEDS: METOPROLOL TARTRATE 50 MG TAB PO SCH (08:30)
[2021-08-04] MEDS: ZINC SULFATE 220 MG CAP PO SCH (08:30)
[2021-08-04] MEDS: ASCORBIC ACID 500 MG TAB PO SCH (08:30)
[2021-08-04] MEDS: MAGNESIUM OXIDE 400 MG TAB PO SCH (08:30)
[2021-08-04] MEDS: APIXABAN 2.5 MG TABLET PO SCH (08:30)
[2021-08-04] MEDS: valACYclovir HCL 1,000 MG TABLET PO SCH (08:30)
[2021-08-04] MEDS: PIPERACILLIN-TAZOBACTAM 3.375 GM in SODIUM CHLORIDE 0.9% 100 ML IVPB SCH (08:31)
[2021-08-04] MEDS: FLUoxetine HCL 20 MG CAP PO SCH (08:31)
[2021-08-04] MEDS: INSULN ASP PRT/INSULIN ASPART 100 UNIT/ML 10 ML VIAL SQ SCH ×2 (08:31→13:17)
--- NOTE | 2021-08-04 09:10 | P.PN ---
Subjective Patient is seen in follow-up for acute kidney injury. Renal function continues to improve. Hemodynamically stable. Nonoliguric. Denies chest pain or shortness of breath. On room air. No active complaints. Vital signs are stable. General: The patient appeared well nourished and normally developed. HEENT: Head exam is unremarkable. LUNGS: Breath sounds decreased. HEART: Rate and Rhythm are regular. ABDOMEN: Soft, no distention. EXTREMITITES: No edema. Objective - Vital Signs Vital signs: Vital Signs Temp 98.2 F 08/04/21 08:26 Pulse 93 08/04/21 08:26 Resp 16 08/04/21 08:26 BP 111/59 08/04/21 08:26 Pulse Ox 96 08/04/21 08:26 Intake & Output 08/03/21 08/04/21 08/04/21 18:59 06:59 18:59 Intake Total 90 420 Output Total 300 Balance -210 420 Weight 78 kg Intake: Oral 90 420 Output: Urine 0 Urine/Stool Mix 300 Other: Voiding Method Bedpan Bedpan # Voids 1 - Labs CBC & Chem 7: 08/01/21 07:06 08/04/21 06:50 Labs: Abnormal Lab Results - Last 24 Hours (Table) 08/03/21 08/03/21 08/03/21 Range/Units 11:08 16:32 20:02 Sodium (137-145) mmol/L Carbon Dioxide (22-30) mmol/L BUN (7-17) mg/dL Creatinine (0.52-1.04) mg/dL Glucose (74-99) mg/dL POC Glucose (mg/dL) 126 H 136 H 186 H (75-99) mg/dL Calcium (8.4-10.2) mg/dL 08/04/21 08/04/21 Range/Units 06:08 06:50 Sodium 132 L (137-145) mmol/L Carbon Dioxide 21 L (22-30) mmol/L BUN 35 H (7-17) mg/dL Creatinine 2.08 H (0.52-1.04) mg/dL Glucose 111 H (74-99) mg/dL POC Glucose (mg/dL) 116 H (75-99) mg/dL Calcium 7.9 L (8.4-10.2) mg/dL Microbiology - Last 24 Hours (Table) 07/29/21 17:31 Blood Culture - Preliminary Blood No Growth after 120 hours 08/01/21 15:51 Urine Culture - Final Urine,Catheterized Assessment and Plan Plan: Assessment: 1. Acute kidney injury secondary to ATN secondary to severe sepsis. Renal function improving. Creatinine 2.08 today. Nonoliguric. 2. Chronic kidney disease stage IIIB with baseline creatinine 1.3-1.5 secondary to diabetic kidney disease. 3. E. coli UTI on antibiotics. 4. COVID-19 pneumonia. Currently on room air. 5. Pelvic mass. Being evaluated by REGISTERED DIETETIC TECHNICIAN. 6. Diabetes mellitus. 7. Hyponatremia secondary to acute kidney injury. Stable. 8. Hypomagnesemia anemia from poor intake. Replace. Better. 9. Hypophosphatemia from PhosLo and poor intake. 10. Metabolic acidosis secondary to acute kidney injury and IV fluids. On oral bicarb. Better. Plan: Decrease rate of normal saline to 50 mL an hour. Encouraged oral intake. Avoid nephrotoxins. Continue to monitor renal function and urine output. Repeat labs in the morning, including phosphorus level. Stopped PhosLo.
--- NOTE | 2021-08-04 10:37 | P.PN ---
<JennifernubiaMarisa kirby - Last Filed: 08/04/21 10:22> Subjective Progress Note Date: 08/04/21 CHIEF COMPLAINT: Weakness HISTORY OF PRESENT ILLNESS: Patient is lying in bed comfortably. She denies any nausea vomiting. Denies any abdominal pain. Ostomy is functioning. No blood in stool noted. She is feeling better. She is tolerating diet. Afebrile. Sodium 132 potassium 4 creatinine 2.08 PHYSICAL EXAM: VITAL SIGNS: Reviewed. GENERAL: Well-developed in no acute distress. HEENT: No sclera icterus. Extraocular movements grossly intact. Moist buccal mucosa. Head is atraumatic, normocephalic. ABDOMEN: Soft. Nondistended. Nontender. Ostomy on right abdomen with stool. NEUROLOGIC: Alert and oriented. Cranial nerves II through XII grossly intact. ASSESSMENT: 1. Weakness 2. Dehydration with acute kidney injury 3. Nausea 4. Pelvic mass noted on 07/15/[address] Bailey performed patient's flexible sigmoidoscopy 5. Status post exploratory laparotomy with right colectomy, end ileostomy, mucous fistula and repair of umbilical hernia for a colonic obstruction with pneumatosis of the right colon on 06/20/2021. 6. COVID-19 positive 7. UTI 8. Anemia PLAN: -DIRECTOR RADIO NEWS workup outpatient regarding pelvic mass -Continue supportive care -Continue carb consistent diet -Encouraged patient to increase activity Physician Timber Framer Helper note has been reviewed by physician. Signing provider agrees with the documented findings, assessment, and plan of care. Objective - Vital Signs Vital signs: Vital Signs Temp 98.2 F 08/04/21 08:26 Pulse 93 08/04/21 08:26 Resp 16 08/04/21 08:26 BP 111/59 08/04/21 08:26 Pulse Ox 96 08/04/21 08:26 Intake & Output 08/03/21 08/04/21 08/04/21 18:59 06:59 18:59 Intake Total 90 420 Output Total 300 120 Balance -210 300 Weight 78 kg Intake: Oral 90 420 Output: Urine 0 Stool 120 Urine/Stool Mix 300 Other: Voiding Method Bedpan Bedpan # Voids 1 - Labs CBC & Chem 7: 08/01/21 07:06 08/04/21 06:50 Labs: Abnormal Lab Results - Last 24 Hours (Table) 08/03/21 08/03/21 08/03/21 Range/Units 11:08 16:32 20:02 Sodium (137-145) mmol/L Carbon Dioxide (22-30) mmol/L BUN (7-17) mg/dL Creatinine (0.52-1.04) mg/dL Glucose (74-99) mg/dL POC Glucose (mg/dL) 126 H 136 H 186 H (75-99) mg/dL Calcium (8.4-10.2) mg/dL 08/04/21 08/04/21 Range/Units 06:08 06:50 Sodium 132 L (137-145) mmol/L Carbon Dioxide 21 L (22-30) mmol/L BUN 35 H (7-17) mg/dL Creatinine 2.08 H (0.52-1.04) mg/dL Glucose 111 H (74-99) mg/dL POC Glucose (mg/dL) 116 H (75-99) mg/dL Calcium 7.9 L (8.4-10.2) mg/dL Microbiology - Last 24 Hours (Table) 07/29/21 17:31 Blood Culture - Preliminary Blood No Growth after 120 hours 08/01/21 15:51 Urine Culture - Final Urine,Catheterized <Arash Bailey - Last Filed: 08/04/21 14:05> Subjective As above. Patient tolerating diet. No pain. Diet as tolerated. Outpatient follow-up with gynecology. Objective - Vital Signs Vital signs: Vital Signs Temp 98.2 F 08/04/21 08:26 Pulse 94 08/04/21 13:13 Resp 20 08/04/21 13:13 BP 123/56 08/04/21 13:13 Pulse Ox 96 08/04/21 13:13 Intake & Output 08/03/21 08/04/21 08/04/21 18:59 06:59 18:59 Intake Total 90 600 Output Total 300 120 Balance -210 480 Weight 78 kg Intake: Oral 90 600 Output: Urine 0 Stool 120 Urine/Stool Mix 300 Other: Voiding Method Bedpan Bedpan # Voids 1 - Labs CBC & Chem 7: 08/04/21 06:50 08/04/21 06:50 Labs: Abnormal Lab Results - Last 24 Hours (Table) 08/03/21 08/03/21 08/04/21 Range/Units 16:32 20:02 06:08 WBC (3.8-10.6) k/uL RBC (3.80-5.40) m/uL Hgb (11.4-16.0) gm/dL Hct (34.0-46.0) % Sodium (137-145) mmol/L Carbon Dioxide (22-30) mmol/L BUN (7-17) mg/dL Creatinine (0.52-1.04) mg/dL Glucose (74-99) mg/dL POC Glucose (mg/dL) 136 H 186 H 116 H (75-99) mg/dL Calcium (8.4-10.2) mg/dL 08/04/21 08/04/21 08/04/21 Range/Units 06:50 06:50 11:42 WBC 12.9 H (3.8-10.6) k/uL RBC 3.21 L (3.80-5.40) m/uL Hgb 10.0 L (11.4-16.0) gm/dL Hct 32.0 L (34.0-46.0) % Sodium 132 L (137-145) mmol/L Carbon Dioxide 21 L (22-30) mmol/L BUN 35 H (7-17) mg/dL Creatinine 2.08 H (0.52-1.04) mg/dL Glucose 111 H (74-99) mg/dL POC Glucose (mg/dL) 127 H (75-99) mg/dL Calcium 7.9 L (8.4-10.2) mg/dL Microbiology - Last 24 Hours (Table) 07/29/21 17:31 Blood Culture - Preliminary Blood No Growth after 120 hours 08/01/21 15:51 Urine Culture - Final Urine,Catheterized
[2021-08-04 10:41] LABS: Hypochromasia Moderate; MCH 31.3 pg (25.0-35.0); MCHC 31.4 g/dL (31.0-37.0); MCV 99.8 fL (80.0-100.0); Macrocytosis Slight; Mean Platelet Volume 9.4; Platelet Count 236 k/uL (150-450); RBC 3.21 m/uL (3.80-5.40); WBC 12.9 k/uL (3.8-10.6)
--- NOTE | 2021-08-04 11:40 | P.DS ---
Providers Date of admission: 07/29/21 16:44 Expected date of discharge: 08/04/21 Attending physician: Kalia Aggarwal Consults: 07/29/21 17:15 Consult Physician Urgent Consulting Provider: Abdirizak Anderson Consult Reason/Comments: covid infection Do you want consulting provider notified?: Yes 07/29/21 17:18 Consult Physician Urgent Consulting Provider: Renetta Frazier Consult Reason/Comments: shade/ckd Do you want consulting provider notified?: Yes 07/29/21 17:20 Consult Physician Urgent Consulting Provider: Arash Bailey Consult Reason/Comments: acute nausea/vomiting, recent ileostomy Do you want consulting provider notified?: Yes 07/30/21 12:28 Consult Physician Routine Consulting Provider: Dee Dee Baez Consult Reason/Comments: pelvic mass Do you want consulting provider notified?: Yes 07/31/21 10:55 Consult Physician Routine Consulting Provider: Joe Bowen Consult Reason/Comments: IP rehab Do you want consulting provider notified?: Yes 08/01/21 11:56 Consult Physician Routine Consulting Provider: Jose Juan Reddy Consult Reason/Comments: MDRO UTI Do you want consulting provider notified?: Yes Primary care physician: Eugenia Sanchez [facility] Course: HISTORY OF PRESENT ILLNESS 80-year-old female one of Dr. Sanchez's patient with past medical history of CAD, hypertension, hyperlipidemia, recurrent urinary tract infection, who was hospitalized recently for recurrent abdominal pain and distention ended up going for Sigmoidoscopy and biopsy patient had obstruction ended up going for surgery with Dr. Bailey us in 2 weeks ago and was apparently discharged to [facility] on the [place] where patient spent up till the last few days. She presented to the emergency department today with worsening weakness fatigue and worsening sy mptoms. When she was in the hospital last time had right colectomy and ileostomy with repair of umbilical hernia had some exposure to COVID-19 in the hospital and custodial as well. Patient being very sick today ended up coming to the emergency department was seen and evaluated surprisingly her urine was very positive her potassium was 6.0, BUN was 100 with creatinine of 5.41 white blood cell was 16.7 with left shifted troponin was mildly elevated UA and culture were positive and COVID-19 was positive. With the multi medical problem patient will be hospitalized will be seen nephrology, infectious disease, electronic technician possibly cardiology. Also we'll consult with Dr. gipson to make sure this is not a complication related to surgery. 07/30: Patient has been afebrile, heart rate 78, blood pressure 102/62, pulse ox 100% on 2 L nasal cannula. Repeat blood work revealed WBC 14.4, hemoglobin 11, platelet count 336. Sodium 132, potassium 4.4, chloride 104, CO2 13, BUN 91 and creatinine 4.26. Blood sugars are running between 96 and 121. Urine culture and blood culture in progress. Consults in place for nephrology, pulmonary medicine and general surgery. She and started on Zosyn. Patient is currently not on oxygen. She has output from ostomy. She does complain of decreased appetite. Discussed discharge plan with the patient and she would like to go to [facility] for subacute rehab for which social work is following. 07/31: Patient is complaining of nausea today and Janine added. Patient has been afebrile, heart rate 83, blood pressure 110/54, pulse ox 99% on room air. Blood sugars are running in the low 200s to 318, a will be resumed back on Humalog 75/25 10 units 3 times daily with meals and continue NovoLog scale. We've added in consult for Dr. Bowen for possible inpatient rehab otherwise subacute rehab would be appropriate but patient verbalizes that she doesn't really want to go to subacute rehab. Social work and case management are following the patient. Stat lab work has been ordered today and repeat lab work ordered for tomorrow. 08/01: Patient has been seen by WELL LOGGING M[facility] ANALYSIS CAPTAIN for enlarged uterus/pelvic mass. Patient apparently has had several years of postmenopausal bleeding. Patient will need a Pap smear and endometrial biopsy which can be done in the outpatient setting after the patient is discharged. Or patient may undergo hysteroscopy with dilation and curettage in the OR during this admission. She is not currently having vaginal bleeding and no pelvic pain. Patient has been afebrile, heart rate 76, blood pressure 113/74, pulse ox 97% on room air. Repeat lab work reveals WBC 10.4, hemoglobin 9.5. Sodium 132, potassium 4.5, chloride 90, CO2 24, BUN 71 and creatinine 3.42. Blood sugars are running between 183 and 258. Alkaline phosphatase 131. Beckett catheter to be discontinued today. Will need clearance from Dr. Frazier for discharge. Urine culture came back with [id number] E. coli and consult added for Dr. Reddy. 08/02: Patient is comfortable, without any nausea no vomiting, has no O2 requirements currently, and is on room air, patient has no abnormal discomfort, [facility]ING [facility] [facility]NAL[employer]IS [facility]TAIN workup as an outpatient for the abdominal mass, she has declined this workup in the past, based on our clinic records, multidrug resistant E. coli noted, on urine culture, Dr. Duval has been consulted, with recommendations to repeat urine culture, and his postoperative, to finish Seprafilm for a total 7 day treatment. 08/03: Patient is at baseline, we discussed to her the need for subacute rehab, and is willing to participate, if she goes back to [facility] in the [place], they do not require a repeat testing for PCR, however they would want to keep her yin the hospital until10 days has passed from the [facility] with testing. Patient also noted to have vesicular rash, in the right occiput, for which infectious diseases has started her on valacyclovir 1 g daily patient's on room air,T-max of 99 1, vitals are stable,medication supplementation, I estimate admission levels 1.3. Creatinine is 2.2 CO2 of 19, start SODIUM bicarb, NEPHROLOGY FOLLOWING 08/04: Patient has been followed by general surgery for abdominal pain which has resolved. She has been seen once by [facility] and with plan for outpatient workup and biopsy, Pap. The patient is also been followed by nephrology, encourage oral intake avoiding nephrotoxin agents. PhosLo discontinued. 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 Repeat urine culture is finalized with skin genital shruthi. Patient is currently on Zosyn which will be discontinued as advised by Dr. Reddy. The patient is unable to go to any of the local nursing homes and plan is for discharge home. supplier development manager will contact patient's son regarding discharge planning. Patient will be discharged today in stable condition. DISCHARGE DIAGNOSES 1. acute respiratory failure: Secondary to COVID-19 pneumonitis, sepsis, acute kidney injury and recent history of bowel obstruction. 2. acute kidney failure: Secondary to acute tubular necrosis and hypoperfusion. 3. sepsis: Most likely from UTI infection 4. [id number] E. coli UTI. 5 severe hyperkalemia 6 recent history of bowel obstruction post right sided colectomy partial resection 7 recurrent abdominal pain was secondary to ischemic colitis and early perforation s/p surgery on previous admission. 8 history of congestive heart failure. 9 type 2 diabetes mellitus uncontrolled with hyperglycemia. 10 acute kidney injury with chronic kidney disease stage IIIB 11 chronic neuropathy. 12. Metabolic acidosis secondary to renal failure. 13. Hyperlipidemia. 14. chronic edema. 15. COPD. 16. Uterus/pelvic mass. Patient has been seen by WE[facility] ANALYSIS CAPTAIN with plan for outpatient workup to include Pap smear and uterine biopsy DISCHARGE PLAN Home With homecare Greater than 35 minutes was utilized and coordinating patient's discharge. Impression and plan of care have been directed as dictated by the signing physician. Thais Scott nurse practitioner acting as scribe for signing physician. Patient Condition at Discharge: Stable Plan - Discharge Summary Discharge Rx Participant: No New Discharge Prescriptions: New Zinc Sulfate [Orazinc] 220 mg PO DAILY cap Ascorbic Acid [Vitamin C] 1,000 mg PO DAILY tab Magnesium Oxide [Mag-Ox] 400 mg PO DAILY tab INSULIN ASPART (NovoLOG) [NovoLOG (formulary)] 0 unit SQ ACHS ml valACYclovir HCL [Valtrex] 1,000 mg PO DAILY #7 tablet Continue FLUoxetine HCL [PROzac] 40 mg PO DAILY Metoprolol Tartrate [Lopressor] 50 mg PO BID Calcium Acetate [PhosLo] 667 mg PO TID-W/MEALS Pravastatin Sodium [Pravachol] 40 mg PO HS Oxybutynin Chloride [Ditropan] 5 mg PO BID #0 Insulin Lispro Protamin/Lispro [humaLOG Mix 75-25 Kwikpen] See Protocol SQ AC-TID Acetaminophen [Tylenol Extra Strength] 1,000 mg PO BID PRN PRN Reason: Pain Apixaban [Eliquis] 2.5 mg PO BID 30 Days #60 tab Discontinued amLODIPine [Norvasc] 10 mg PO DAILY Discharge Medication List FLUoxetine HCL [PROzac] 40 mg PO DAILY 10/18/18 [History] Metoprolol Tartrate [Lopressor] 50 mg PO BID 10/18/18 [History] Acetaminophen [Tylenol Extra Strength] 1,000 mg PO BID PRN 06/20/21 [History] Calcium Acetate [PhosLo] 667 mg PO TID-W/MEALS 06/20/21 [History] Pravastatin Sodium [Pravachol] 40 mg PO HS 06/20/21 [History] Apixaban [Eliquis] 2.5 mg PO BID 30 Days #60 tab 06/24/21 [Rx] Oxybutynin Chloride [Ditropan] 5 mg PO BID #0 06/30/21 [Rx] Insulin Lispro Protamin/Lispro [humaLOG Mix 75-25 Kwikpen] See Protocol SQ AC- TID 07/29/21 [History] Ascorbic Acid [Vitamin C] 1,000 mg PO DAILY tab 08/01/21 [Rx] INSULIN ASPART (NovoLOG) [NovoLOG (formulary)] 0 unit SQ ACHS ml 08/01/21 [Rx] Zinc Sulfate [Orazinc] 220 mg PO DAILY cap 08/01/21 [Rx] Magnesium Oxide [Mag-Ox] 400 mg PO DAILY tab 08/04/21 [Rx] valACYclovir HCL [Valtrex] 1,000 mg PO DAILY #7 tablet 08/04/21 [Rx] Follow up Appointment(s)/Referral(s): Dee Dee Baez MD [STAFF PHYSICIAN] - 1 Week Eugenia Sanchez MD [Primary Care Provider] - 1 Week (after discharge from ECF) [facility] [facility] [NON-STAFF] - [facility] [NON-STAFF] - Activity/Diet/Wound Care/Special Instructions: Patient will need a wheelchair to complete ADLs unable to complete with a cane or walker, she will have someone to assist with propelling her, due to weakness, COVID, CHF. Discharge/Stand Alone Forms: Who Do I Call?, Help In The Home Discharge Disposition: TRANSFER TO SNF/ECF
[2021-08-04 11:43] LABS: Glucose,Whole Blood 127 mg/dL (75-99)
[2021-08-04 13:16] VITALS: BP 123/56; PULSE 94; RESP 20
--- NOTE | 2021-08-04 14:05 | P.PN ---
Subjective Progress Note Date: 08/04/21 On today's evaluation of 08/04/2021, the patient is being seen for a follow-up. The patient is resting comfortably or patient is not having any significant rest or distress. The patient has undergone expiratory laparotomy, right colectomy and ileostomy and repair of an umbilical hernia and a mucous fistula. The patient also had a COVID 19 infection and for now the patient is on a room air oxygen. She has an underlying UTI with E. coli and she is receiving antibiotics. No signs of any respiratory distress. The white cell count is at 12.9 with hemoglobin of 10 and the platelets of 239. The patient is a mean of 35 with a creatinine of 2.08] kidney injury is improving. Sodium level is at 132. The patient is awake and comfortable. The patient remains on IV Zosyn for now. The patient is on oral bicarb. The patient is on Novolin 70/30 mix 10 units 3 times a day along with signs care coverage. She remains on long-term medical condition with Eliquis 2.5 mg by mouth twice a day. Objective - Vital Signs Vital signs: Vital Signs Temp 98.2 F 08/04/21 08:26 Pulse 94 08/04/21 13:13 Resp 20 08/04/21 13:13 BP 123/56 08/04/21 13:13 Pulse Ox 96 08/04/21 13:13 Intake & Output 08/03/21 08/04/21 08/04/21 18:59 06:59 18:59 Intake Total 90 600 Output Total 300 120 Balance -210 480 Weight 78 kg Intake: Oral 90 600 Output: Urine 0 Stool 120 Urine/Stool Mix 300 Other: Voiding Method Bedpan Bedpan # Voids 1 - Exam No acute distress, oriented 3. Appears very weak and frail. Currently on room air. Room air saturation 93%. HEENT examination is grossly unremarkable. Neck supple. Full range of motion. No adenopathy thyromegaly or neck vein distention. Cardiovascular examination reveals regular rhythm rate. S1-S2 normal. No S3 or S4. No discernible murmur noted. Heart rate 88 bpm. Lungs reveal clear breath sounds. Breath sounds are equal bilaterally. No adventitious lung sounds including wheezes rhonchi or crackles. Abdomen soft, with bowel sounds. She has a functioning ileostomy. Extremities are intact. No cyanosis clubbing or edema. Skin is without rash or lesion. Neurologic examination is brief but nonfocal. - Labs CBC & Chem 7: 08/04/21 06:50 08/04/21 06:50 Labs: Abnormal Lab Results - Last 24 Hours (Table) 08/03/21 08/03/21 08/04/21 Range/Units 16:32 20:02 06:08 WBC (3.8-10.6) k/uL RBC (3.80-5.40) m/uL Hgb (11.4-16.0) gm/dL Hct (34.0-46.0) % Sodium (137-145) mmol/L Carbon Dioxide (22-30) mmol/L BUN (7-17) mg/dL Creatinine (0.52-1.04) mg/dL Glucose (74-99) mg/dL POC Glucose (mg/dL) 136 H 186 H 116 H (75-99) mg/dL Calcium (8.4-10.2) mg/dL 08/04/21 08/04/21 08/04/21 Range/Units 06:50 06:50 11:42 WBC 12.9 H (3.8-10.6) k/uL RBC 3.21 L (3.80-5.40) m/uL Hgb 10.0 L (11.4-16.0) gm/dL Hct 32.0 L (34.0-46.0) % Sodium 132 L (137-145) mmol/L Carbon Dioxide 21 L (22-30) mmol/L BUN 35 H (7-17) mg/dL Creatinine 2.08 H (0.52-1.04) mg/dL Glucose 111 H (74-99) mg/dL POC Glucose (mg/dL) 127 H (75-99) mg/dL Calcium 7.9 L (8.4-10.2) mg/dL Microbiology - Last 24 Hours (Table) 07/29/21 17:31 Blood Culture - Preliminary Blood No Growth after 120 hours 08/01/21 15:51 Urine Culture - Final Urine,Catheterized Assessment and Plan Plan: Coronavirus infection, without obvious coronavirus associated pneumonia. The patient remains on oxygen for now. No signs of any respiratory distress. Weakness, and dehydration, secondary to coronavirus infection. Escherichia coli urinary tract infection, currently on IV Zosyn Acute kidney injury, improving and the renal function continues to improve Recent exploratory laparotomy, right colectomy and ileostomy, with repair of umbilicus hernia, and mucous fistula, between June 20 and June 30, 2021. History of CHF. History of diabetes mellitus. History of hyperlipidemia. History of hypertension. Osteoarthritis. Plan Continue medical management. No active pulmonary or critical condition on this patient. Renal function ricardo nues to improve. Creatinine is improving. Continue IV Zosyn. Provide the patient incentive spirometer. Increase mobility as tolerated. We will sign off the case.
[2021-08-04 14:33] VITALS: BMI 32.5
--- NOTE | 2021-08-04 14:40 | P.PN ---
Progress Note - Text Reviewed therapy notes and patient still unable to participate fully with therapy. Still not inpatient rehab candidate.
== END 2021-08-04 15:55 | DRG 871 ==
LOC: EC 13:12 → 4SSUR 16:44 → 3SCARD 17:23 → 4SSUR 17:26 → 3SCARD 18:53
PROVIDERS: ADMIT Internal Medicine Geriatric Medicine; ATTEND Internal Medicine Geriatric Medicine
DX: A41.51 Sepsis due to Escherichia coli [E. coli] (principal); N17.0 Acute kidney failure with tubular necrosis; I21.4 Non-ST elevation (NSTEMI) myocardial infarction; J12.82 Pneumonia due to coronavirus disease 2019; J96.00 Acute respiratory failure, unspecified whether with hypoxia or hypercapnia; U07.1 COVID-19; N39.0 Urinary tract infection, site not specified; E87.1 Hypo-osmolality and hyponatremia; I13.0 Hypertensive heart and chronic kidney disease with heart failure and stage 1 through stage 4 chronic kidney disease, or unspecified chronic kidney disease; J44.0 Chronic obstructive pulmonary disease with (acute) lower respiratory infection; K55.9 Vascular disorder of intestine, unspecified; Z16.24 Resistance to multiple antibiotics; E87.2 Acidosis; B00.9 Herpesviral infection, unspecified; B96.20 Unspecified Escherichia coli [E. coli] as the cause of diseases classified elsewhere; E11.22 Type 2 diabetes mellitus with diabetic chronic kidney disease; E11.65 Type 2 diabetes mellitus with hyperglycemia; N18.32 Chronic kidney disease, stage 3b; I50.9 Heart failure, unspecified; E08.42 Diabetes mellitus due to underlying condition with diabetic polyneuropathy; R65.20 Severe sepsis without septic shock; E83.39 Other disorders of phosphorus metabolism; D63.8 Anemia in other chronic diseases classified elsewhere; E83.42 Hypomagnesemia; E86.0 Dehydration; E87.5 Hyperkalemia; F32.A Depression, unspecified; E78.5 Hyperlipidemia, unspecified; F41.9 Anxiety disorder, unspecified; Z90.49 Acquired absence of other specified parts of digestive tract; Z98.890 Other specified postprocedural states; Z93.2 Ileostomy status; I48.0 Paroxysmal atrial fibrillation; Z79.01 Long term (current) use of anticoagulants; I25.10 Atherosclerotic heart disease of native coronary artery without angina pectoris; M19.90 Unspecified osteoarthritis, unspecified site; N85.2 Hypertrophy of uterus; N95.0 Postmenopausal bleeding; Z79.4 Long term (current) use of insulin; Z79.899 Other long term (current) drug therapy; Z82.49 Family history of ischemic heart disease and other diseases of the circulatory system; Z87.440 Personal history of urinary (tract) infections; Z87.891 Personal history of nicotine dependence; Z98.42 Cataract extraction status, left eye; Z98.41 Cataract extraction status, right eye; Z96.1 Presence of intraocular lens; Z88.5 Allergy status to narcotic agent; Z86.14 Personal history of Methicillin resistant Staphylococcus aureus infection
CPT/HCPCS: 36415; 71046; 74018; 76770; 80048; 80053; 81001; 83605; 83735; 84100; 84484; 85025; 85027; 85610; 85730; 87040; 87077; 87086; 87186; 87635; 93005; 96360; 96361; 99285

== ENCOUNTER 2021-08-16 22:38 | Inpatient (IN) | payer MEDICARE ==
[2021-08-16] MEDS: SODIUM CHLORIDE 0.9% 500 ML 500 ML IV ONE (22:59)
[2021-08-16 23:04] LABS: Glucose,Whole Blood 268 mg/dL (75-99)
[2021-08-16] MEDS ORDERED: ONDANSETRON 4 MG/2 ML VIAL IVP STA (23:31)
[2021-08-16] MEDS ORDERED: DILTIAZEM DRIP BOLUS FROM BAG 1 MG SOLN IV ONE (23:32)
[2021-08-17] MEDS: DILTIAZEM 125 MG in SODIUM CHLORIDE 0.9% 100 ML IV SCH ×2 (00:04→20:19)
[2021-08-17] MEDS: SODIUM CHLORIDE 0.9% 500 ML 500 ML IV ONE (00:04)
[2021-08-17 02:05] LABS: Albumin 2.9 g/dL (3.5-5.0); Calcium 9.3 mg/dL (8.4-10.2); Potassium 5.4 mmol/L (3.5-5.1); Total Bilirubin 0.8 mg/dL (0.2-1.3); Total Protein 6.8 g/dL (6.3-8.2)
[2021-08-17 02:14] LABS: INR 1.1 (<1.2); Partial Thromboplastin Time 20.3 sec (22.0-30.0); Prothrombin Time 11.5 sec (9.0-12.0)
[2021-08-17 02:30] LABS: Anisocytosis Slight; Basophils # (A) 0.1 k/uL (0-0.2); Basophils % (A) 0 %; Eosinophils # (A) 0.2 k/uL (0-0.7); Eosinophils % (A) 1 %; HCT 32.1 % (34.0-46.0); HGB 9.7 gm/dL (11.4-16.0); Hypochromasia Marked; Lymphocytes % (A) 3 %; MCH 31.2 pg (25.0-35.0); MCHC 30.3 g/dL (31.0-37.0); MCV 103.2 fL (80.0-100.0); Macrocytosis Moderate; Mean Platelet Volume 9.8; Monocytes # (A) 1.4 k/uL (0-1.0); Monocytes % (A) 5 %; Neutrophils # (A) 25.5 k/uL (1.3-7.7); Neutrophils % (A) 90 %; Platelet Count 274 k/uL (150-450); RBC 3.11 m/uL (3.80-5.40); RDW 16.9 % (11.5-15.5); WBC 28.4 k/uL (3.8-10.6)
--- NOTE | 2021-08-17 02:35 | XR ---
EXAMINATION TYPE: XR chest 1V portable DATE OF EXAM: 08/17/2021 COMPARISON: 07/29/2021 HISTORY: Weakness TECHNIQUE: Single view FINDINGS: There is some mild increased interstitial perihilar density. There is no heart failure. Hea rt size is normal. There is no pulmonary consolidation. There is no pleural effusion. IMPRESSION: Mild pulmonary fibrotic changes. No heart failure. Inspiration decreased compared to last exam. There is right subclavian catheter that is folded on itself and the tip is in the subclavian vein.
--- NOTE | 2021-08-17 02:42 | CT ---
EXAMINATION TYPE: CT ChestAbdPelvis wo con DATE OF EXAM: 08/17/2021 COMPARISON: CT abdomen pelvis 06/20/2021 HISTORY: sob, vomiting CT DLP: 779.50 mGycm Automated exposure control for dose reduction was used. Images obtained from the thoracic inlet to the floor the pelvis with no contrast. There are some apparent calcified granuloma at the right pulmonary hilum. There is some mild atelecta sis and scarring at the right lung base. There is no pleural effusion. There is no pericardial effusi on. Thoracic aorta is atheromatous. There is no aneurysm. There are no hilar masses. Liver is intact. There are numerous calcified splenic granulomata. Stomach is intact and distended wi th fluid. There is no evidence of pancreatic mass. There is metal artifact right upper quadrant appar ently from cholecystectomy. There is no adrenal mass. Kidneys show normal size and contour. There is no hydronephrosis. There is no retroperitoneal adenopathy. Bladder distends smoothly. There is no inguinal hernia. Uterus is ante verted. There is 6 x 4 cm predominantly cystic mass in the right adnexal region consistent with large ovary that contains a complex cyst. There is no free fluid in the pelvis. There is no evidence of a bowel obstruction. There is no mesenteric edema. There is no ascites or tigre e air. There is numerous large bowel diverticula. There is a colostomy in the left mid abdomen appare ntly of the splenic flexure. There is also an ileostomy in the right lower quadrant. Correlation with the surgical history is needed. There is some degenerative spurring in the thoracic and lumbar spine. There is no significant brittany anna deformity. Sternum is intact. Exam limited slightly by motion. Bony pelvis appears intact. IMPRESSION: Colostomy and ileostomy noted. No evidence of a bowel obstruction. No free air. The ostomies appear n ew compared to old exam. There is a new complex cyst right ovary compared to old exam. Follow-up is r ecommended.
[2021-08-17] MEDS ORDERED: LEVOFLOXACIN 750MG-D5W PMX 750 MG in DEXTROSE/WATER 1 150ML.BAG IVPB STA (02:57)
[2021-08-17] MEDS ORDERED: SODIUM CHLORIDE 0.9% 1,000 ML IV STA (02:58)
[2021-08-17] MEDS ORDERED: SODIUM CHLORIDE 0.9% 1,000 ML IV ONE ×3 (02:58→20:11)
--- NOTE | 2021-08-17 05:10 | ED ---
Altered Mental Status HPI - General Chief Complaint: Shortness of Breath Stated Complaint: Lethargic Time Seen by Provider: 08/16/21 22:45 Source: EMS Mode of arrival: EMS Limitations: no limitations - History of Present Illness Initial Comments: This patient is 80-year-old woman brought by EMS to be evaluated for altered mental status, nausea and vomiting. The patient does appear delirious and is not able to give much history. She does indicate some pain in the epigastric area. The patient's recent history notable for admission July 29 for similar presentation, she reportedly was very dehydrated, had covid infection as well as urinary tract infection. BUN and creatinine were very elevated at the time. MD Complaint: altered mental status -: hour(s) Severity: severe Consistency of Symptoms: getting worse Context: history of similar presentation Associated Symptoms: nausea/vomiting - Related Data Home Medications Medication Instructions Recorded Confirmed FLUoxetine HCL [PROzac] 40 mg PO DAILY 10/18/18 08/16/21 Metoprolol Tartrate [Lopressor] 50 mg PO BID 10/18/18 08/16/21 Acetaminophen [Tylenol Extra 1,000 mg PO BID PRN 06/20/21 08/16/21 Strength] Calcium Acetate [PhosLo] 667 mg PO TID-W/MEALS 06/20/21 08/16/21 Pravastatin Sodium [Pravachol] 40 mg PO HS 06/20/21 08/16/21 Insulin Lispro Protamin/Lispro See Protocol SQ AC-TID 07/29/21 08/16/21 [humaLOG Mix 75-25 Kwikpen] INSULIN ASPART (NovoLOG) [NovoLOG See Protocol SQ ACHS 08/16/21 08/16/21 (formulary)] Previous Rx's Medication Instructions Recorded Apixaban [Eliquis] 2.5 mg PO BID 30 Days #60 tab 06/24/21 Oxybutynin Chloride [Ditropan] 5 mg PO BID #0 06/30/21 Ascorbic Acid [Vitamin C] 1,000 mg PO DAILY tab 08/01/21 Zinc Sulfate [Orazinc] 220 mg PO DAILY cap 08/01/21 Magnesium Oxide [Mag-Ox] 400 mg PO DAILY tab 08/04/21 valACYclovir HCL [Valtrex] 1,000 mg PO DAILY #7 tablet 08/04/21 Allergies Allergy/AdvReac Type Severity Reaction Status Date / Time codeine AdvReac Nausea & Verified 08/16/21 23:57 Vomiting Review of Systems ROS Statement: Those systems with pertinent positive or pertinent negative responses have been documented in the HPI. ROS Other: All systems not noted in ROS Statement are negative. Limitations: ROS unobtainable due to patients medical condition (Patient appears delirious) Respiratory: Reports: dyspnea Gastrointestinal: Reports: abdominal pain, vomiting Past Medical History Past Medical History: Heart Failure, Diabetes Mellitus, Hyperlipidemia, Hy pertension, Osteoarthritis (OA), Renal Disease Additional Past Medical History / Comment(s): INSULIN- DIABETIC TYPE 2 , ACUTE KIDNEY FAILURE ,ILEOSTOMY,MUCOUS FISTULA, History of Any Multi-Drug Resistant Organisms: MRSA Date of last positivie culture/infection: 11/18/18 MDRO Source:: URINE MRSA Past Surgical History: Section, Cholecystectomy Additional Past Surgical History / Comment(s): Bilateral cataract removals/lens implants, wrist surgery, ILEOSTOMY - JUN 2021 Past Anesthesia/Blood Transfusion Reactions: No Reported Reaction Additional Past Anesthesia/Blood Transfusion Reaction / Comment(s): Pt recieved blood in past without reaction (after childbirth) Past Psychological History: Anxiety, Depression Smoking Status: Former smoker Past Alcohol Use History: None Reported Past Drug Use History: None Reported - Past Family History Father Additional Family Medical History / Comment(s): Father from an industrial exposure at the age of 42 yrs. Mother Family Medical History: No Reported History Additional Family Medical History / Comment(s): Mother lived to be 95 yrs old. General Exam Limitations: no limitations General appearance: alert, in distress, obese Head exam: Present: atraumatic, normocephalic Eye exam: Present: normal appearance. Absent: scleral icterus, conjunctival injection ENT exam: Present: mucous membranes dry Neck exam: Present: normal inspection, full ROM. Absent: meningismus Respiratory exam: Present: respiratory distress, rhonchi. Absent: wheezes, rales, stridor, accessory muscle use, decreased breath sounds Cardiovascular Exam: Present: tachycardia, irregular rhythm, normal heart sounds. Absent: systolic murmur, diastolic murmur, rubs, gallop GI/Abdominal exam: Present: soft, tenderness (There is mild epigastric tenderness without rebound or guarding), other (There is a right-sided ileostomy with dark greenish brown output. There is a left-sided colostomy bag which is empty.). Absent: distended, guarding, rebound, rigid, mass, pulsatile mass, hernia Extremities exam: Present: normal inspection. Absent: tenderness, pedal edema, calf tenderness Back exam: Present: normal inspection Neurological exam: Present: altered, CN II-XII intact. Absent: motor sensory deficit Skin exam: Present: warm, dry, intact, mottled. Absent: rash Course Vital Signs 08/16/21 08/17/21 08/17/21 22:39 00:05 01:41 Temperature 97.4 F L 97.5 F L Pulse Rate 121 H 92 141 H Respiratory 24 24 22 Rate Blood Pressure 118/100 112/80 108/61 O2 Sat by Pulse 97 93 L Oximetry 08/17/21 03:58 Temperature Pulse Rate 147 H Respiratory 20 Rate Blood Pressure 110/68 O2 Sat by Pulse 90 L Oximetry Procedures - [place] Protocol (Time Out) Nurse: Natalie Smith Medical Decision Making - Medical Decision Making This patient is 80-year-old woman brought to be evaluated for altered mental status and vomiting. She is holding an emesis basin with a trace of coffee- ground emesis. On arrival, the patient does appear to be delirious. Patient does appear to be dehydrated and hypovolemic. Patient does appear on exam to be in atrial fibrillation with rapid ventricular rate. The patient had multiple IV started times by nursing staff and they were not successful. Therefore emergent central line placement to start fluid and antibiotics. I did initially attempt to place a central line at right femoral area but not able to cannulate the vein as the artery is directly overlying. Switch to right subclavian area and was able to place the central line without complication, however on the chest x-ray the central line catheter does appear to be doubled back on itself. CT scan is performed which does show that the central venous catheter is within the lumen of the vessel. Patient is admitted under [facility] covering for Dr. Sanchez. Senior Advisor paged to discuss care. - Lab Data Result diagrams: 08/16/21 01:41 08/16/21 01:41 Lab Results 08/16/21 08/16/21 08/16/21 Range/Units 01:41 01:41 01:41 WBC 28.4 H (3.8-10.6) k/uL RBC 3.11 L (3.80-5.40) m/uL Hgb 9.7 L (11.4-16.0) gm/dL Hct 32.1 L (34.0-46.0) % MCV 103.2 H (80.0-100.0) fL MCH 31.2 (25.0-35.0) pg MCHC 30.3 L (31.0-37.0) g/dL RDW 16.9 H (11.5-15.5) % Plt Count 274 (150-450) k/uL MPV 9.8 Neutrophils % 90 % Lymphocytes % 3 % Monocytes % 5 % Eosinophils % 1 % Basophils % 0 % Neutrophils # 25.5 H (1.3-7.7) k/uL Lymphocytes # 1.0 (1.0-4.8) k/uL Monocytes # 1.4 H (0-1.0) k/uL Eosinophils # 0.2 (0-0.7) k/uL Basophils # 0.1 (0-0.2) k/uL Hypochromasia Marked Anisocytosis Slight Macrocytosis Moderate PT 11.5 (9.0-12.0) sec INR 1.1 (<1.2) APTT 20.3 L (22.0-30.0) sec Sodium 137 (137-145) mmol/L Potassium 5.4 H (3.5-5.1) mmol/L Chloride 107 (98-107) mmol/L Carbon Dioxide 8 L* (22-30) mmol/L Anion Gap 22 mmol/L BUN 60 H (7-17) mg/dL Creatinine 4.84 H (0.52-1.04) mg/dL Est GFR (CKD-EPI)AfAm 9 (>60 ml/min/1.73 sqM) Est GFR (CKD-EPI)NonAf 8 (>60 ml/min/1.73 sqM) Glucose 289 H (74-99) mg/dL POC Glucose (mg/dL) (75-99) mg/dL POC Glu Blood Bank Order Control Clerk ID Lactic Ac Sepsis Rflx Plasma Lactic Acid Jeff (0.7-2.0) mmol/L Calcium 9.3 (8.4-10.2) mg/dL Total Bilirubin 0.8 (0.2-1.3) mg/dL AST 25 (14-36) U/L ALT 20 (4-34) U/L Alkaline Phosphatase 204 H (38-126) U/L Troponin I (0.000-0.034) ng/mL Total Protein 6.8 (6.3-8.2) g/dL Albumin 2.9 L (3.5-5.0) g/dL Coronavirus (PCR) (Not Detectd) 08/16/21 08/16/21 08/16/21 Range/Units 01:41 01:41 23:00 WBC (3.8-10.6) k/uL RBC (3.80-5.40) m/uL Hgb (11.4-16.0) gm/dL Hct (34.0-46.0) % MCV (80.0-100.0) fL MCH (25.0-35.0) pg MCHC (31.0-37.0) g/dL RDW (11.5-15.5) % Plt Count (150-450) k/uL MPV Neutrophils % % Lymphocytes % % Monocytes % % Eosinophils % % Basophils % % Neutrophils # (1.3-7.7) k/uL Lymphocytes # (1.0-4.8) k/uL Monocytes # (0-1.0) k/uL Eosinophils # (0-0.7) k/uL Basophils # (0-0.2) k/uL Hypochromasia Anisocytosis Macrocytosis PT (9.0-12.0) sec INR (<1.2) APTT (22.0-30.0) sec Sodium (137-145) mmol/L Potassium (3.5-5.1) mmol/L Chloride (98-107) mmol/L Carbon Dioxide (22-30) mmol/L Anion Gap mmol/L BUN (7-17) mg/dL Creatinine (0.52-1.04) mg/dL Est GFR (CKD-EPI)AfAm (>60 ml/min/1.73 sqM) Est GFR (CKD-EPI)NonAf (>60 ml/min/1.73 sqM) Glucose (74-99) mg/dL POC Glucose (mg/dL) 268 H (75-99) mg/dL POC Glu Blood Bank Order Control Clerk ID Stauffer, Navin Lactic Ac Sepsis Rflx Plasma Lactic Acid Jeff 5.0 H* (0.7-2.0) mmol/L Calcium (8.4-10.2) mg/dL Total Bilirubin (0.2-1.3) mg/dL AST (14-36) U/L ALT (4-34) U/L Alkaline Phosphatase (38-126) U/L Troponin I 0.062 H* (0.000-0.034) ng/mL Total Protein (6.3-8.2) g/dL Albumin (3.5-5.0) g/dL Coronavirus (PCR) (Not Detectd) 08/17/21 08/17/21 Range/Units 02:23 03:12 WBC (3.8-10.6) k/uL RBC (3.80-5.40) m/uL Hgb (11.4-16.0) gm/dL Hct (34.0-46.0) % MCV (80.0-100.0) fL MCH (25.0-35.0) pg MCHC (31.0-37.0) g/dL RDW (11.5-15.5) % Plt Count (150-450) k/uL MPV Neutrophils % % Lymphocytes % % Monocytes % % Eosinophils % % Basophils % % Neutrophils # (1.3-7.7) k/uL Lymphocytes # (1.0-4.8) k/uL Monocytes # (0-1.0) k/uL Eosinophils # (0-0.7) k/uL Basophils # (0-0.2) k/uL Hypochromasia Anisocytosis Macrocytosis PT (9.0-12.0) sec INR (<1.2) APTT (22.0-30.0) sec Sodium (137-145) mmol/L Potassium (3.5-5.1) mmol/L Chloride (98-107) mmol/L Carbon Dioxide (22-30) mmol/L Anion Gap mmol/L BUN (7-17) mg/dL Creatinine (0.52-1.04) mg/dL Est GFR (CKD-EPI)AfAm (>60 ml/min/1.73 sqM) Est GFR (CKD-EPI)NonAf (>60 ml/min/1.73 sqM) Glucose (74-99) mg/dL POC Glucose (mg/dL) (75-99) mg/dL POC Glu Blood Bank Order Control Clerk ID Lactic Ac Sepsis Rflx Y Plasma Lactic Acid Jeff (0.7-2.0) mmol/L Calcium (8.4-10.2) mg/dL Total Bilirubin (0.2-1.3) mg/dL AST (14-36) U/L ALT (4-34) U/L Alkaline Phosphatase (38-126) U/L Troponin I (0.000-0.034) ng/mL Total Protein (6.3-8.2) g/dL Albumin (3.5-5.0) g/dL Coronavirus (PCR) Not Detected (Not Detectd) Disposition Clinical Impression: Altered mental status, Acute kidney injury, Lactic acidosis Disposition: ADMITTED IP TO THIS [facility] Condition: Serious
[2021-08-17] MEDS ORDERED: PANTOPRAZOLE 40 MG/10 ML VIAL IVP ONE (05:15)
[2021-08-17 05:20] LABS: ABG Base Excess -13.3 mmol/L; ABG HCO3 11 mmol/L (21-25); ABG PH 7.44 (7.35-7.45); ABG PO2 229 mmHg (83-108); ABG TCO2 11 mmol/L (19-24); Allen Test Performed? Yes
[2021-08-17 05:22] LABS: ABG PCO2 16 mmHg (35-45)
[2021-08-17] MEDS ORDERED: LORazepam 2 MG/ML INJ IV STA (05:30)
--- NOTE | 2021-08-17 05:46 | P.HPIM ---
History of Present Illness H&P Date: 08/17/21 Chief Complaint: altered mental status 80 year old female with multiple comorbidities, DM, HLD, COPD patient brought in by EMS, no family available at this time, patient unable to provide any meaningful history , all she does is moaning. Per EMS , family reported altered mental status, vomiting, and progressive decline in overall health over the past week. Family also said that they were trying to let patient depend on herself. no other history available at this time patient was hypoxic with increase oxygen requirement , imaging did not show any significant pulmonary infilterate or effusion. no bowel obstruction. blood work showed , chronic anemia, PETE on CKD. severe acidosis , with lactic acidosis . trops chronically elevated around baseline,COVID negative. EKG showed afib with RVR. patient has been hospitalized twice over past month or two. back in June of this year, presented with bowel obstruction , requiring partial collectomy and ostomies bag placement .then presented again mid july for sepsis , AMS and treated for UTI. and discharged about 10 days ago. Review of Systems ROS unobtainable: due to mental status Past Medical History Past Medical History: Heart Failure, Diabetes Mellitus, Hyperlipidemia, Hypertension, Osteoarthritis (OA), Renal Disease Additional Past Medical History / Comment(s): INSULIN- DIABETIC TYPE 2 , ACUTE KIDNEY FAILURE ,ILEOSTOMY,MUCOUS FISTULA, History of Any Multi-Drug Resistant Organisms: MRSA Date of last positivie culture/infection: 11/18/18 MDRO Source:: URINE MRSA Past Surgical History: Section, Cholecystectomy Additional Past Surgical History / Comment(s): Bilateral cataract removals/lens implants, wrist surgery, ILEOSTOMY - JUN 2021 Past Anesthesia/Blood Transfusion Reactions: No Reported Reaction Additional Past Anesthesia/Blood Transfusion Reaction / Comment(s): Pt recieved blood in past without reaction (after childbirth) Past Psychological History: Anxiety, Depression Smoking Status: Former smoker Past Alcohol Use History: None Reported Past Drug Use History: None Reported - Past Family History Father Additional Family Medical History / Comment(s): Father from an industrial exposure at the age of 42 yrs. Mother Family Medical History: No Reported History Additional Family Medical History / Comment(s): Mother lived to be 95 yrs old. Medications and Allergies Home Medications Medication Instructions Recorded Confirmed Type FLUoxetine HCL [PROzac] 40 mg PO DAILY 10/18/18 08/16/21 History Metoprolol Tartrate [Lopressor] 50 mg PO BID 10/18/18 08/16/21 History Acetaminophen [Tylenol Extra 1,000 mg PO BID PRN 06/20/21 08/16/21 History Strength] Calcium Acetate [PhosLo] 667 mg PO TID-W/MEALS 06/20/21 08/16/21 History Pravastatin Sodium [Pravachol] 40 mg PO HS 06/20/21 08/16/21 History Apixaban [Eliquis] 2.5 mg PO BID 30 Days #60 tab 06/24/21 08/16/21 Rx Oxybutynin Chloride [Ditropan] 5 mg PO BID #0 06/30/21 08/16/21 Rx Insulin Lispro Protamin/Lispro See Protocol SQ AC-TID 07/29/21 08/16/21 History [humaLOG Mix 75-25 Kwikpen] Ascorbic Acid [Vitamin C] 1,000 mg PO DAILY tab 08/01/21 08/16/21 Rx Zinc Sulfate [Orazinc] 220 mg PO DAILY cap 08/01/21 08/16/21 Rx Magnesium Oxide [Mag-Ox] 400 mg PO DAILY tab 08/04/21 08/16/21 Rx valACYclovir HCL [Valtrex] 1,000 mg PO DAILY #7 tablet 08/04/21 08/16/21 Rx INSULIN ASPART (NovoLOG) [NovoLOG See Protocol SQ ACHS 08/16/21 08/16/21 History (formulary)] Allergies Allergy/AdvReac Type Severity Reaction Status Date / Time codeine AdvReac Nausea & Verified 08/16/21 23:57 Vomiting Physical Exam Vitals: Vital Signs Temp Pulse Resp BP Pulse Ox 08/17/21 03:58 147 H 20 110/68 90 L 08/17/21 01:41 97.5 F L 141 H 22 108/61 08/17/21 00:05 92 24 112/80 93 L 08/16/21 22:39 97.4 F L 121 H 24 118/100 97 Intake and Output 08/16/21 08/16/21 08/17/21 14:59 22:59 06:59 Intake Total 20.167 Balance 20.167 Intake: Intake, IV Titration 20.167 Amount Diltiazem 125 mg In 20.167 Sodium Chloride 0.9% 100 ml @ 5 MG/HR 5 mls/hr IV .Q24H [facility] Rx#:[id number] Other: Weight 97.522 kg Constitutional: patient looks anxious , makes good eye contact, and follows simple commands , however, does not provide any history Eyes: Anicteric sclerae, moist conjunctiva, Pupils equal round reactive to light ENMT: NC/AT mouth and oropharynx covered with some coffee ground vomitus , no erythema, or exudates Neck: Supple, no masses, or JVD No carotid bruits No thyromegaly right subclavian central venous cath in place Lungs: Clear to auscultation Clear to percussion tachypnea with shallow breathing Cardiovascular: Heart tachycardic , irregular No murmurs, gallops, or rubs No peripheral edema Abdominal: Soft, right colostomy in place with dark liquid stool, left mu cus fistula clean discomfort to deep plapation of epigastric region . no guarding, rebound or rigidity Abdomen moving with respiration Normoactive bowel sounds No hepatomegaly, No splenomegaly No palpable mass No abdominal wall hernia noted Skin: cold to the touch No induration No subcutaneous nodules No rash, lesions No ulcers Extremities: cyanosis of the great toes No clubbing Pedal pulses intact and symmetrical Radial pulses intact and symmetrical left calf muscle tenderness Psychiatric: anxious , alert, makes good eye contact, and follows simple commands , confused, does not talk Neuro unable to assess neurological exam , patient can not cooperate with complex orders. Lymphatics: no palpable cervical or supraclavicular , or inguinal lymph nodes Results CBC & Chem 7: 08/16/21 01:41 08/16/21 01:41 Labs: Abnormal Lab Results - Last 24 Hours (Table) 08/16/21 08/16/21 08/16/21 Range/Units 01:41 01:41 01:41 WBC 28.4 H (3.8-10.6) k/uL RBC 3.11 L (3.80-5.40) m/uL Hgb 9.7 L (11.4-16.0) gm/dL Hct 32.1 L (34.0-46.0) % MCV 103.2 H (80.0-100.0) fL MCHC 30.3 L (31.0-37.0) g/dL RDW 16.9 H (11.5-15.5) % Neutrophils # 25.5 H (1.3-7.7) k/uL Monocytes # 1.4 H (0-1.0) k/uL APTT 20.3 L (22.0-30.0) sec Potassium 5.4 H (3.5-5.1) mmol/L Carbon Dioxide 8 L* (22-30) mmol/L BUN 60 H (7-17) mg/dL Creatinine 4.84 H (0.52-1.04) mg/dL Glucose 289 H (74-99) mg/dL POC Glucose (mg/dL) (75-99) mg/dL Plasma Lactic Acid Jeff (0.7-2.0) mmol/L Alkaline Phosphatase 204 H (38-126) U/L Troponin I (0.000-0.034) ng/mL Albumin 2.9 L (3.5-5.0) g/dL 08/16/21 08/16/21 08/16/21 Range/Units 01:41 01:41 23:00 WBC (3.8-10.6) k/uL RBC (3.80-5.40) m/uL Hgb (11.4-16.0) gm/dL Hct (34.0-46.0) % MCV (80.0-100.0) fL MCHC (31.0-37.0) g/dL RDW (11.5-15.5) % Neutrophils # (1.3-7.7) k/uL Monocytes # (0-1.0) k/uL APTT (22.0-30.0) sec Potassium (3.5-5.1) mmol/L Carbon Dioxide (22-30) mmol/L BUN (7-17) mg/dL Creatinine (0.52-1.04) mg/dL Glucose (74-99) mg/dL POC Glucose (mg/dL) 268 H (75-99) mg/dL Plasma Lactic Acid Jeff 5.0 H* (0.7-2.0) mmol/L Alkaline Phosphatase (38-126) U/L Troponin I 0.062 H* (0.000-0.034) ng/mL Albumin (3.5-5.0) g/dL Assessment and Plan Assessment: acute metabolic encephalopathy , rule out underlying infectious process. acute hypoxic respiratory failure lactic acidosis PETE on CKD plan COVID negative CXR no acute process ABG showed compensated metabolic acidosis 7.4/16/229/11 aggressive IVF hydration s/p 2 L boluses , maintain with 130 cc per hour normal saline ECHO most recent with LVEF 55% follow up blood culture , UA empiric antibiotics with zosyn and levoflox s/p right subclavian central cath supportive care await call back from ICU regarding admission supplemental oxygen as needed lpc monitor vital signs upper GI bleed with chronic anemia Hgb stable , suspect component of dehydration , actual hemoglobin possibly lower trend Hgb PPI IVP 80 mg then 40 mg BID avoid blood thinners left leg swelling and tenderness , rule out DVT check venous US Left LE trops chronically elevated , at baseline trend trops possibly secondary to CKD no report of chest pain afib with RVR cardizem drip avoid heparin due to GI bleed (coffee ground vomiting) home meds listing eliquis 2.5 mg BID , unknown if patient compliant with home meds chronic conditions DM , insulin sliding scale COPD hyperlipidemia pelvic mass/ CT showed large ovarian complex cyst , consider OP follow up DVT PPX mechanical due to possible GI bleed, follow up on left leg US to rule out DVT first before applying compressors GI PPX on PPI anticipated length of stay > 2 midnights call family for more history full code critically ill, await approval for ICU admission guarded prognosis ICU consult Gen surg consult
[2021-08-17] MEDS: DEXTROSE 5% IN WATER 1,000 ML with SODIUM BICARB (1 MEQ/ML) 150 ML IV SCH ×2 (06:07→17:55)
[2021-08-17] MEDS ORDERED: HEPARIN SODIUM 1,000 UN/ML (10ML VL) IV ONE (07:12)
[2021-08-17] MEDS ORDERED: HEPARIN SODIUM 1,000 UN/ML (10ML VL) IV PRN (07:12)
[2021-08-17] MEDS ORDERED: INSULIN ASPART (NovoLOG) 100 UNIT/ML VIAL SQ SCH (07:30)
[2021-08-17] MEDS ORDERED: HEPARIN SODIUM,PORCINE/PF 5,000 UNIT/0.5 ML SYRINGE SQ SCH (08:00)
[2021-08-17 08:16] LABS: Anisocytosis Slight; Basophils # (A) 0.1 k/uL (0-0.2); Basophils % (A) 0 %; Eosinophils % (A) 0 %; HGB 8.7 gm/dL (11.4-16.0); Hypochromasia Marked; Lymphocytes # (A) 1.4 k/uL (1.0-4.8); Lymphocytes % (A) 5 %; MCH 31.3 pg (25.0-35.0); MCV 104.2 fL (80.0-100.0); Macrocytosis Moderate; Mean Platelet Volume 9.5; Monocytes # (A) 1.6 k/uL (0-1.0); Monocytes % (A) 6 %; Neutrophils # (A) 23.1 k/uL (1.3-7.7); Neutrophils % (A) 87 %; Platelet Count 224 k/uL (150-450); RBC 2.78 m/uL (3.80-5.40); RDW 16.7 % (11.5-15.5); WBC 26.6 k/uL (3.8-10.6)
--- NOTE | 2021-08-17 08:31 | US ---
EXAMINATION TYPE: US venous doppler duplex LE LT DATE OF EXAM: 08/17/2021 7:15 AM COMPARISON: NONE CLINICAL HISTORY: DVT. SIDE PERFORMED: Left TECHNIQUE: The lower extremity deep venous system is examined utilizing real time linear array sonog michaela with graded compression, doppler sonography and color-flow sonography. VESSELS IMAGED: Common Femoral Vein Deep Femoral Vein Greater Saphenous Vein * Femoral Vein Popliteal Vein Small Saphenous Vein * (* superficial vessels) Left Leg: Positive for DVT, starting from CFV and extending into distal popliteal vein. IMPRESSION: 1. Deep venous thrombosis extending from the left popliteal vein to the common femoral vein.
[2021-08-17 08:40] LABS: INR 1.1 (<1.2); Prothrombin Time 11.5 sec (9.0-12.0)
[2021-08-17 08:41] LABS: Partial Thromboplastin Time 20.7 sec (22.0-30.0)
[2021-08-17] MEDS: PIPERACILLIN-TAZOBACTAM 3.375 GM in SODIUM CHLORIDE 0.9% 100 ML IVPB SCH ×2 (08:59→20:00)
[2021-08-17 09:00] LABS: Glucose,Whole Blood 170 mg/dL (75-99)
[2021-08-17] MEDS: METOPROLOL TARTRATE 50 MG TAB PO SCH ×2 (09:17→22:01)
[2021-08-17] MEDS: PANTOPRAZOLE 40 MG/10 ML VIAL IVP SCH ×2 (09:17→22:02)
[2021-08-17] MEDS: FAMOTIDINE 20 MG/2 ML VIAL IV SCH ×2 (09:17→20:03)
[2021-08-17] MEDS: INSULIN ASPART (NovoLOG) 100 UNIT/ML VIAL SQ SCH ×4 (09:18→22:02)
[2021-08-17] MEDS: HEPARIN SOD,PORK IN 0.45% NACL 25,000 UNIT in 0.45% NACL 1 250ML.BAG IV SCH (09:21)
--- NOTE | 2021-08-17 10:46 | US ---
EXAMINATION TYPE: US renals and bladder DATE OF EXAM: 08/17/2021 COMPARISON: NONE CLINICAL HISTORY: acute on chronic renal failure. EXAM MEASUREMENTS: Right Kidney: 8.1 x 3.4 x 3.6 cm Left Kidney: unable to visualize, patient has drainage bag on LUQ, she is laying supine and can't mov e for examiner. Unable to find acoustic window to view kidney. Exam on 07-30 does show kidney. Morbidly obese patient. Right Kidney: measures small Left Kidney: unable to visualize, patient has drainage bag on LUQ, she is laying supine and can't mov e for examiner. Unable to find acoustic window to view kidney. Exam on 07-30 does show kidney. Bladder: not seen IMPRESSION: 1. Very limited ultrasound kidneys. No acute ultrasounds changes.
--- NOTE | 2021-08-17 11:26 | P.GSCN ---
History of Present Illness Consult date: 08/17/21 Reason for Consult: GI bleed, anemia History of present illness: This a 80-year-old female admitted to the emergency room with complaints of me ntal status changes. Patient is unable to give any medical history. She's counseled for possible GI bleed/anemia. 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 Past Medical History Past Medical History: Heart Failure, Diabetes Mellitus, Hyperlipidemia, Hypertension, Osteoarthritis (OA), Renal Disease Additional Past Medical History / Comment(s): INSULIN- DIABETIC TYPE 2 , ACUTE KIDNEY FAILURE ,ILEOSTOMY,MUCOUS FISTULA, History of Any Multi-Drug Resistant Organisms: MRSA Year Discovered:: 11/18/18 MDRO Source:: URINE MRSA Past Surgical History: Section, Cholecystectomy Additional Past Surgical History / Comment(s): Bilateral cataract removals/lens implants, wrist surgery, ILEOSTOMY - JUN 2021 Past Anesthesia/Blood Transfusion Reactions: No Reported Reaction Additional Past Anesthesia/Blood Transfusion Reaction / Comm: Pt recieved blood in past without reaction (after childbirth) Past Psychological History: Anxiety, Depression Smoking Status: Former smoker Past Alcohol Use History: None Reported Past Drug Use History: None Reported - Past Family History Father Additional Family Medical History / Comment(s): Father from an industrial exposure at the age of 42 yrs. Mother Family Medical History: No Reported History Additional Family Medical History / Comment(s): Mother lived to be 95 yrs old. Medications and Allergies Home Medications Medication Instructions Recorded Confirmed Type FLUoxetine HCL [PROzac] 40 mg PO DAILY 10/18/18 08/16/21 History Metoprolol Tartrate [Lopressor] 50 mg PO BID 10/18/18 08/16/21 History Acetaminophen [Tylenol Extra 1,000 mg PO BID PRN 06/20/21 08/16/21 History Strength] Calcium Acetate [PhosLo] 667 mg PO TID-W/MEALS 06/20/21 08/16/21 History Pravastatin Sodium [Pravachol] 40 mg PO HS 06/20/21 08/16/21 History Apixaban [Eliquis] 2.5 mg PO BID 30 Days #60 tab 06/24/21 08/16/21 Rx Oxybutynin Chloride [Ditropan] 5 mg PO BID #0 06/30/21 08/16/21 Rx Insulin Lispro Protamin/Lispro See Protocol SQ AC-TID 07/29/21 08/16/21 History [humaLOG Mix 75-25 Kwikpen] Ascorbic Acid [Vitamin C] 1,000 mg PO DAILY tab 08/01/21 08/16/21 Rx Zinc Sulfate [Orazinc] 220 mg PO DAILY cap 08/01/21 08/16/21 Rx Magnesium Oxide [Mag-Ox] 400 mg PO DAILY tab 08/04/21 08/16/21 Rx valACYclovir HCL [Valtrex] 1,000 mg PO DAILY #7 tablet 08/04/21 08/16/21 Rx INSULIN ASPART (NovoLOG) [NovoLOG See Protocol SQ ACHS 08/16/21 08/16/21 History (formulary)] Allergies Allergy/AdvReac Type Severity Reaction Status Date / Time codeine AdvReac Nausea & Verified 08/16/21 23:57 Vomiting Surgical - Exam Vital Signs Temp Pulse Resp BP Pulse Ox 97.4 F L 121 H 24 118/100 97 08/16/21 22:39 08/16/21 22:39 08/16/21 22:39 08/16/21 22:39 08/16/21 22:39 - General Patient is obtunded - Abdomen Abdomen soft. Colostomy present left lower quadrant. There is no evidence of any blood in the colostomy bag. Results - Labs 08/17/21 07:53 08/16/21 01:41 Abnormal Lab Results - Last 24 Hours (Table) 08/16/21 08/16/21 08/16/21 Range/Units 01:41 01:41 01:41 WBC 28.4 H (3.8-10.6) k/uL RBC 3.11 L (3.80-5.40) m/uL Hgb 9.7 L (11.4-16.0) gm/dL Hct 32.1 L (34.0-46.0) % MCV 103.2 H (80.0-100.0) fL MCHC 30.3 L (31.0-37.0) g/dL RDW 16.9 H (11.5-15.5) % Neutrophils # 25.5 H (1.3-7.7) k/uL Monocytes # 1.4 H (0-1.0) k/uL APTT 20.3 L (22.0-30.0) sec ABG pCO2 (35-45) mmHg ABG pO2 (83-108) mmHg ABG HCO3 (21-25) mmol/L ABG Total CO2 (19-24) mmol/L ABG O2 Saturation (94-97) % Potassium 5.4 H (3.5-5.1) mmol/L Carbon Dioxide 8 L* (22-30) mmol/L BUN 60 H (7-17) mg/dL Creatinine 4.84 H (0.52-1.04) mg/dL Glucose 289 H (74-99) mg/dL POC Glucose (mg/dL) (75-99) mg/dL Plasma Lactic Acid Jeff (0.7-2.0) mmol/L Alkaline Phosphatase 204 H (38-126) U/L Troponin I (0.000-0.034) ng/mL Albumin 2.9 L (3.5-5.0) g/dL 08/16/21 08/16/21 08/16/21 Range/Units 01:41 01:41 23:00 WBC (3.8-10.6) k/uL RBC (3.80-5.40) m/uL Hgb (11.4-16.0) gm/dL Hct (34.0-46.0) % MCV (80.0-100.0) fL MCHC (31.0-37.0) g/dL RDW (11.5-15.5) % Neutrophils # (1.3-7.7) k/uL Monocytes # (0-1.0) k/uL APTT (22.0-30.0) sec ABG pCO2 (35-45) mmHg ABG pO2 (83-108) mmHg ABG HCO3 (21-25) mmol/L ABG Total CO2 (19-24) mmol/L ABG O2 Saturation (94-97) % Potassium (3.5-5.1) mmol/L Carbon Dioxide (22-30) mmol/L BUN (7-17) mg/dL Creatinine (0.52-1.04) mg/dL Glucose (74-99) mg/dL POC Glucose (mg/dL) 268 H (75-99) mg/dL Plasma Lactic Acid Jeff 5.0 H* (0.7-2.0) mmol/L Alkaline Phosphatase (38-126) U/L Troponin I 0.062 H* (0.000-0.034) ng/mL Albumin (3.5-5.0) g/dL 08/17/21 08/17/21 08/17/21 Range/Units 04:45 04:45 05:12 WBC (3.8-10.6) k/uL RBC (3.80-5.40) m/uL Hgb (11.4-16.0) gm/dL Hct (34.0-46.0) % MCV (80.0-100.0) fL MCHC (31.0-37.0) g/dL RDW (11.5-15.5) % Neutrophils # (1.3-7.7) k/uL Monocytes # (0-1.0) k/uL APTT (22.0-30.0) sec ABG pCO2 16 L* (35-45) mmHg ABG pO2 229 H (83-108) mmHg ABG HCO3 11 L (21-25) mmol/L ABG Total CO2 11 L (19-24) mmol/L ABG O2 Saturation 100.0 H (94-97) % Potassium (3.5-5.1) mmol/L Carbon Dioxide (22-30) mmol/L BUN (7-17) mg/dL Creatinine (0.52-1.04) mg/dL Glucose (74-99) mg/dL POC Glucose (mg/dL) (75-99) mg/dL Plasma Lactic Acid Jeff 3.4 H* (0.7-2.0) mmol/L Alkaline Phosphatase (38-126) U/L Troponin I 0.059 H* (0.000-0.034) ng/mL Albumin (3.5-5.0) g/dL 08/17/21 08/17/21 08/17/21 Range/Units 07:53 07:53 07:53 WBC 26.6 H (3.8-10.6) k/uL RBC 2.78 L (3.80-5.40) m/uL Hgb 8.7 L (11.4-16.0) gm/dL Hct 29.0 L (34.0-46.0) % MCV 104.2 H (80.0-100.0) fL MCHC 30.0 L (31.0-37.0) g/dL RDW 16.7 H (11.5-15.5) % Neutrophils # 23.1 H (1.3-7.7) k/uL Monocytes # 1.6 H (0-1.0) k/uL APTT 20.7 L (22.0-30.0) sec ABG pCO2 (35-45) mmHg ABG pO2 (83-108) mmHg ABG HCO3 (21-25) mmol/L ABG Total CO2 (19-24) mmol/L ABG O2 Saturation (94-97) % Potassium (3.5-5.1) mmol/L Carbon Dioxide (22-30) mmol/L BUN (7-17) mg/dL Creatinine (0.52-1.04) mg/dL Glucose (74-99) mg/dL POC Glucose (mg/dL) (75-99) mg/dL Plasma Lactic Acid Jeff (0.7-2.0) mmol/L Alkaline Phosphatase (38-126) U/L Troponin I 0.054 H* (0.000-0.034) ng/mL Albumin (3.5-5.0) g/dL 08/17/21 Range/Units 08:58 WBC (3.8-10.6) k/uL RBC (3.80-5.40) m/uL Hgb (11.4-16.0) gm/dL Hct (34.0-46.0) % MCV (80.0-100.0) fL MCHC (31.0-37.0) g/dL RDW (11.5-15.5) % Neutrophils # (1.3-7.7) k/uL Monocytes # (0-1.0) k/uL APTT (22.0-30.0) sec ABG pCO2 (35-45) mmHg ABG pO2 (83-108) mmHg ABG HCO3 (21-25) mmol/L ABG Total CO2 (19-24) mmol/L ABG O2 Saturation (94-97) % Potassium (3.5-5.1) mmol/L Carbon Dioxide (22-30) mmol/L BUN (7-17) mg/dL Creatinine (0.52-1.04) mg/dL Glucose (74-99) mg/dL POC Glucose (mg/dL) 170 H (75-99) mg/dL Plasma Lactic Acid Jeff (0.7-2.0) mmol/L Alkaline Phosphatase (38-126) U/L Troponin I (0.000-0.034) ng/mL Albumin (3.5-5.0) g/dL Diabetes panel 08/16/21 Range/Units 01:41 Sodium 137 (137-145) mmol/L Potassium 5.4 H (3.5-5.1) mmol/L Chloride 107 (98-107) mmol/L Carbon Dioxide 8 L* (22-30) mmol/L BUN 60 H (7-17) mg/dL Creatinine 4.84 H (0.52-1.04) mg/dL Glucose 289 H (74-99) mg/dL Calcium 9.3 (8.4-10.2) mg/dL AST 25 (14-36) U/L ALT 20 (4-34) U/L Alkaline Phosphatase 204 H (38-126) U/L Total Protein 6.8 (6.3-8.2) g/dL Albumin 2.9 L (3.5-5.0) g/dL Calcium panel 08/16/21 Range/Units 01:41 Calcium 9.3 (8.4-10.2) mg/dL Albumin 2.9 L (3.5-5.0) g/dL Pituitary panel 08/16/21 Range/Units 01:41 Sodium 137 (137-145) mmol/L Potassium 5.4 H (3.5-5.1) mmol/L Chloride 107 (98-107) mmol/L Carbon Dioxide 8 L* (22-30) mmol/L BUN 60 H (7-17) mg/dL Creatinine 4.84 H (0.52-1.04) mg/dL Glucose 289 H (74-99) mg/dL Calcium 9.3 (8.4-10.2) mg/dL Adrenal panel 08/16/21 Range/Units 01:41 Sodium 137 (137-145) mmol/L Potassium 5.4 H (3.5-5.1) mmol/L Chloride 107 (98-107) mmol/L Carbon Dioxide 8 L* (22-30) mmol/L BUN 60 H (7-17) mg/dL Creatinine 4.84 H (0.52-1.04) mg/dL Glucose 289 H (74-99) mg/dL Calcium 9.3 (8.4-10.2) mg/dL Total Bilirubin 0.8 (0.2-1.3) mg/dL AST 25 (14-36) U/L ALT 20 (4-34) U/L Alkaline Phosphatase 204 H (38-126) U/L Total Protein 6.8 (6.3-8.2) g/dL Albumin 2.9 L (3.5-5.0) g/dL - Imaging CT scan - pelvis: report reviewed (6 x 4 cm cystic mass right ovary, no evidence of bowel obstruction) Assessment and Plan Assessment: Sepsis Anemia Patiently medically managed. When her condition improved she may undergo endoscopy.
[2021-08-17 12:01] LABS: Appearance,Urine Turbid (Clear); Bacteria,Urine Many /hpf; Bilirubin,Urine Negative (Negative); Blood,Urine Small (Negative); Color,Urine Yellow; Glucose,Urine (UA) Negative (Negative); Granular Casts,Urine 2 /lpf (0); Hyaline Casts,Urine 11 /lpf (0-2); Ketones,Urine Negative (Negative); Leukocyte Esterase,Urine Large (Negative); Mucus,Urine Rare /hpf; Nitrite,Urine Negative (Negative); PH, Urine 5.5 (5.0-8.0); Protein,Urine 2+ (Negative); RBC,Urine 10 /hpf (0-5); Specific Gravity,Urine 1.016 (1.001-1.035); Squamous Epithelial Cell,Urine 12 /hpf (0-4); Urobilinogen,Urine <2.0 mg/dL (<2.0); WBC,Urine 75 /hpf (0-5)
[2021-08-17 12:08] LABS: Amphetamine Screen,Urine Not Detected (NotDetected); Barbiturate Screen,Urine Not Detected (NotDetected); Benzodiazepines Screen,Urine Not Detected (NotDetected); Cocaine Screen,Urine Not Detected (NotDetected); Methadone Screen, Urine Not Detected (NotDetected); Opiate Screen,Urine Not Detected (NotDetected); Oxycodone Screen, Urine Not Detected (NotDetected); Phencyclidine Screen,Urine Not Detected (NotDetected); Tricyclic Antidepressant,Urine Not Detected (NotDetected); Urn Cannabinoid Scrn Not Detected (NotDetected)
--- NOTE | 2021-08-17 12:13 | P.NPCON ---
History of Present Illness - Reason for Consult acute renal failure, chronic renal failure - History of Present Illness Reason for consultation: Acute kidney injury on chronic kidney disease History of present illness: Patient is a 80-year-old female seen in renal consultation for acute kidney injury on chronic kidney disease. He should for seen and examined in the emergency room. Patient presented to the hospital with nausea and coffee ground emesis as well as altered mental status. Patient was noted to be severely acidotic with a bicarb level of 8. Creatinine was 4.84 on admission. Patient has chronic kidney disease stage III a baseline creatinine in the range of 1.3- 1.5 secondary to diabetic kidney disease. She is noted to have a left lower extremity DVT and also A. fib with RVR. She is currently maintained on a heparin drip as well as Cardizem drip. Patient has history of colonic o bstruction with colostomy as well as right colectomy. There is concern for GI bleed. Most recent hemoglobin was 8.7. She has received 3 L of normal saline and is currently maintained on normal saline at 100 mL an hour. I don't see any nonsteroidals in her home medication list. Vital signs are stable. In A. fib. HEENT: On nasal cannula. LUNGS: Breath sounds decreased. HEART: Irregular rate and rhythm. ABDOMEN: Soft, no distention. Colostomy noted. EXTREMITITES: No edema. Past Medical History Past Medical History: Heart Failure, Diabetes Mellitus, Hyperlipidemia, Hypertension, Osteoarthritis (OA), Renal Disease Additional Past Medical History / Comment(s): INSULIN- DIABETIC TYPE 2 , ACUTE KIDNEY FAILURE ,ILEOSTOMY,MUCOUS FISTULA, History of Any Multi-Drug Resistant Organisms: MRSA Date of last positivie culture/infection: 11/18/18 MDRO Source:: URINE MRSA Past Surgical History: Section, Cholecystectomy Additional Past Surgical History / Comment(s): Bilateral cataract removals/lens implants, wrist surgery, ILEOSTOMY - JUN 2021 Past Anesthesia/Blood Transfusion Reactions: No Reported Reaction Additional Past Anesthesia/Blood Transfusion Reaction / Comment(s): Pt recieved blood in past without reaction (after childbirth) Past Psychological History: Anxiety, Depression Smoking Status: Former smoker Past Alcohol Use History: None Reported Past Drug Use History: None Reported - Past Family History Father Additional Family Medical History / Comment(s): Father from an industrial exposure at the age of 42 yrs. Mother Family Medical History: No Reported History Additional Family Medical History / Comment(s): Mother lived to be 95 yrs old. Medications and Allergies Home Medications Medication Instructions Recorded Confirmed Type FLUoxetine HCL [PROzac] 40 mg PO DAILY 10/18/18 08/16/21 History Metoprolol Tartrate [Lopressor] 50 mg PO BID 10/18/18 08/16/21 History Acetaminophen [Tylenol Extra 1,000 mg PO BID PRN 06/20/21 08/16/21 History Strength] Calcium Acetate [PhosLo] 667 mg PO TID-W/MEALS 06/20/21 08/16/21 History Pravastatin Sodium [Pravachol] 40 mg PO HS 06/20/21 08/16/21 History Apixaban [Eliquis] 2.5 mg PO BID 30 Days #60 tab 06/24/21 08/16/21 Rx Oxybutynin Chloride [Ditropan] 5 mg PO BID #0 06/30/21 08/16/21 Rx Insulin Lispro Protamin/Lispro See Protocol SQ AC-TID 07/29/21 08/16/21 History [humaLOG Mix 75-25 Kwikpen] Ascorbic Acid [Vitamin C] 1,000 mg PO DAILY tab 08/01/21 08/16/21 Rx Zinc Sulfate [Orazinc] 220 mg PO DAILY cap 08/01/21 08/16/21 Rx Magnesium Oxide [Mag-Ox] 400 mg PO DAILY tab 08/04/21 08/16/21 Rx valACYclovir HCL [Valtrex] 1,000 mg PO DAILY #7 tablet 08/04/21 08/16/21 Rx INSULIN ASPART (NovoLOG) [NovoLOG See Protocol SQ ACHS 08/16/21 08/16/21 History (formulary)] Allergies Allergy/AdvReac Type Severity Reaction Status Date / Time codeine AdvReac Nausea & Verified 08/16/21 23:57 Vomiting Physical Exam Vitals: Vital Signs Temp Pulse Resp BP Pulse Ox 08/17/21 10:36 99.9 F H 107 H 19 111/63 95 08/17/21 08:48 120 H 16 108/69 95 08/17/21 07:47 122 H 22 123/88 93 L 08/17/21 06:23 124 H 18 101/68 97 08/17/21 05:05 130 H 22 103/57 94 L 08/17/21 03:58 147 H 20 110/68 90 L 08/17/21 03:05 120 H 20 155/98 95 08/17/21 01:41 97.5 F L 141 H 22 108/61 08/17/21 00:05 92 24 112/80 93 L 08/16/21 22:39 97.4 F L 121 H 24 118/100 97 Intake and Output 08/16/21 08/17/21 08/17/21 22:59 06:59 14:59 Intake Total 20.167 Balance 20.167 Intake: Intake, IV Titration 20.167 Amount Diltiazem 125 mg In 20.167 Sodium Chloride 0.9% 100 ml @ 5 MG/HR 5 mls/hr IV .Q24H [facility] Rx#:[id number] Other: Weight 97.522 kg Results - Lab Results Most recent lab results ABG pH 7.44 (7.35-7.45) 08/17/21 05:12 ABG pCO2 16 mmHg (35-45) L* 08/17/21 05:12 ABG pO2 229 mmHg (83-108) H 08/17/21 05:12 ABG HCO3 11 mmol/L (21-25) L 08/17/21 05:12 ABG O2 Saturation 100.0 % (94-97) H 08/17/21 05:12 Calcium 9.3 mg/dL (8.4-10.2) 08/16/21 01:41 08/17/21 07:53 08/16/21 01:41 Assessment and Plan Plan: Assessment: 1. Acute kidney injury mostly prerenal secondary to hypovolemia and hemodynamic instability. Creatinine 4.84 on admission. No hydronephrosis noted on CAT scan. 2. Chronic kidney disease stage IIIa with baseline creatinine in the range of 1.3-1.5 secondary to diabetic kidney disease. 3. Left lower extremity DVT maintained on heparin drip. 4. A. fib with RVR maintained on Cardizem drip. 5. Metabolic acidosis secondary to acute kidney injury. Also compensatory for respiratory alkalosis. 6. Diabetes mellitus. Plan: Change normal saline to bicarb drip to be run at 100 mL an hour. Follow-up morning labs and repeat labs in the morning. Check urinalysis. Avoid nephrotoxins. Follow-up echocardiogram. Follow-up cultures. Continue to monitor renal function and urine output. Thank you for the consultation. I will continue to follow the patient with you during her hospital stay.
[2021-08-17 12:27] LABS: Calcium 8.6 mg/dL (8.4-10.2); Magnesium 1.6 mg/dL (1.6-2.3); Potassium 5.3 mmol/L (3.5-5.1)
[2021-08-17 13:17] LABS: Anisocytosis Slight; HCT 25.7 % (34.0-46.0); HGB 7.7 gm/dL (11.4-16.0); Hypochromasia Marked; MCH 30.5 pg (25.0-35.0); MCHC 30.1 g/dL (31.0-37.0); MCV 101.1 fL (80.0-100.0); Macrocytosis Moderate; Mean Platelet Volume 9.2; Platelet Count 238 k/uL (150-450); RBC 2.54 m/uL (3.80-5.40); RDW 17.2 % (11.5-15.5); WBC 26.7 k/uL (3.8-10.6)
--- NOTE | 2021-08-17 13:57 | P.CNPUL ---
History of Present Illness Consult date: 08/17/21 Chief complaint: Acute kidney injury History of present illness: This is a 80-year-old female patient who came into the emergency department with altered mental status. No family was available in the emergency department. The patient is unable to provide any history whatsoever. Apparently, the patient was hospitalized earlier and she was discharged from the hospital on 08/04/2021 after being treated for acute hypoxic respiratory failure secondary to COVID 19 related pneumonia and during the course of her evaluation or hospitalization, the patient had an acute kidney injury secondary to ATN and infection/sepsis secondary to underlying urine checked infection with multidrug resistant E. coli. Ultimately, the patient's condition was stabilized and she was discharged home with home care. She is known to have multiple medical problems including a previous history of a questionable pelvic mass, previous history of a right sided colectomy with diverting ileostomy, CHF, diabetes mellitus type 2, chronic stage IIIB kidney disease, chronic peripheral neuropathy, hyperlipidemia, chronic anemia and COPD. She is also known to have CHF along with history approximately atrial fibrillation. During this current admission, the patient apparently was not eating in her condition was progressively getting worse and she comes in with mental status change. In the emergency department, the patient was found to be in atrial fibrillation with rapid ventricular response. She was hypotensive. She was also found to be in acute kidney injury and she had severe anion gap metabolic acidosis. Her serum bicarb was 8 and LDL was 60 with a creatinine of 4.8 consistent with an acute on top of chronic kidney failure and the patient also had a lactic acid level as high as 5.0 with some troponin leaks. The white cell count was abnormal and the patient underwent white cell count of 28.4 with a hemoglobin of 0.7 and follow-up levels showed a drop in hemoglobin down to 8.7 and at the same time the patient normal correlation profile, UA was abnormal consistent with underlying urine checked infection. Stool occult blood was positive. Urine drug screen was negative. History of colon cancer was inserted in the emergency department. The chest x-ray showed a fall with right subclavian triple-lumen catheter which is essentially functional. There was no pulmonary consolidation. The CAT scan of the chest abdomen and pelvis was done and showed colectomy and diverting ileostomy and there was evidence of any free air in the abdomen. The Doppler of the lower activity was also done and the patient was found to have DVT in the left popliteal vein extending to the common vein and ultrasound the kidney was done that showed limited view without any acute ultrasonic changes. The patient currently is on Cardizem drip regarding her atrial fibrillation. The patient is on Cardizem drip at 5 mg an hour for rate control. The patient i s also on IV heparin per protocol. The patient covered with empiric antibiotic coverage and she was given accommodation of Zosyn and Levaquin. She was also started on a bicarb infusion which is currently running at the rate of 100 mL an hour. Beckett catheter inserted. Review of Systems ROS unobtainable: due to mental status Past Medical History Past Medical History: Heart Failure, Diabetes Mellitus, Hyperlipidemia, Hypertension, Osteoarthritis (OA), Renal Disease Additional Past Medical History / Comment(s): INSULIN- DIABETIC TYPE 2 , ACUTE KIDNEY FAILURE ,ILEOSTOMY,MUCOUS FISTULA, History of Any Multi-Drug Resistant Organisms: MRSA Date of last positivie culture/infection: 11/18/18 MDRO Source:: URINE MRSA Past Surgical History: Section, Cholecystectomy Additional Past Surgical History / Comment(s): Bilateral cataract removals/lens implants, wrist surgery, ILEOSTOMY - JUN 2021 Past Anesthesia/Blood Transfusion Reactions: No Reported Reaction Additional Past Anesthesia/Blood Transfusion Reaction / Comment(s): Pt recieved blood in past without reaction (after childbirth) Past Psychological History: Anxiety, Depression Smoking Status: Former smoker Past Alcohol Use History: None Reported Past Drug Use History: None Reported - Past Family History Father Additional Family Medical History / Comment(s): Father from an industrial exposure at the age of 42 yrs. Mother Family Medical History: No Reported History Additional Family Medical History / Comment(s): Mother lived to be 95 yrs old. Medications and Allergies Home Medications Medication Instructions Recorded Confirmed Type FLUoxetine HCL [PROzac] 40 mg PO DAILY 10/18/18 08/16/21 History Metoprolol Tartrate [Lopressor] 50 mg PO BID 10/18/18 08/16/21 History Acetaminophen [Tylenol Extra 1,000 mg PO BID PRN 06/20/21 08/16/21 History Strength] Calcium Acetate [PhosLo] 667 mg PO TID-W/MEALS 06/20/21 08/16/21 History Pravastatin Sodium [Pravachol] 40 mg PO HS 06/20/21 08/16/21 History Apixaban [Eliquis] 2.5 mg PO BID 30 Days #60 tab 06/24/21 08/16/21 Rx Oxybutynin Chloride [Ditropan] 5 mg PO BID #0 06/30/21 08/16/21 Rx Insulin Lispro Protamin/Lispro See Protocol SQ AC-TID 07/29/21 08/16/21 History [humaLOG Mix 75-25 Kwikpen] Ascorbic Acid [Vitamin C] 1,000 mg PO DAILY tab 08/01/21 08/16/21 Rx Zinc Sulfate [Orazinc] 220 mg PO DAILY cap 08/01/21 08/16/21 Rx Magnesium Oxide [Mag-Ox] 400 mg PO DAILY tab 08/04/21 08/16/21 Rx valACYclovir HCL [Valtrex] 1,000 mg PO DAILY #7 tablet 08/04/21 08/16/21 Rx INSULIN ASPART (NovoLOG) [NovoLOG See Protocol SQ ACHS 08/16/21 08/16/21 History (formulary)] Allergies Allergy/AdvReac Type Severity Reaction Status Date / Time codeine AdvReac Nausea & Verified 08/16/21 23:57 Vomiting Physical Exam Vitals: Vital Signs Temp Pulse Resp BP Pulse Ox 08/17/21 08:48 120 H 16 108/69 95 08/17/21 07:47 122 H 22 123/88 93 L 08/17/21 06:23 124 H 18 101/68 97 08/17/21 05:05 130 H 22 103/57 94 L 08/17/21 03:58 147 H 20 110/68 90 L 08/17/21 03:05 120 H 20 155/98 95 08/17/21 01:41 97.5 F L 141 H 22 108/61 08/17/21 00:05 92 24 112/80 93 L 08/16/21 22:39 97.4 F L 121 H 24 118/100 97 Intake and Output 08/16/21 08/17/21 08/17/21 22:59 06:59 14:59 Intake Total 20.167 Balance 20.167 Intake: Intake, IV Titration 20.167 Amount Diltiazem 125 mg In 20.167 Sodium Chloride 0.9% 100 ml @ 5 MG/HR 5 mls/hr IV .Q24H [facility] Rx#:[id number] Other: Weight 97.522 kg Gen. appearance the patient looks quite debilitated and she carries a body mass index of 36.9. Breathing is nonlabored. She is unable to hold a conversation and she is not communicating at this point in time. Head exam was generally normal. There was no scleral icterus or corneal arcus. Mucous membranes were moist. Neck was supple and without jugular venous distension, thyromegaly, or carotid bruits. Carotids were easily palpable bilaterally. There was no adenopathy. Mu cous members are essentially dry this point in time. Cardiac exam revealed the PMI to be normally situated and sized. The rhythm was irregular consistent with atrial fibrillation with rapid ventricular response Lungs were clear to auscultation and percussion, and with normal diaphragmatic excursion. No wheezes or rales were noted. Abdominal exam revealed normal bowel sounds. The abdomen was soft, non-tender, and without masses, organomegaly, or appreciable enlargement of the abdominal aorta. Note that the patient has a previous surgical scar over the anterior abdominal wall. The patient ileostomy and a left-sided mucous fistula which is clean. Examination of the extremities revealed easily palpable radial, femoral and pedal pulses. There was no cyanosis, clubbing or edema. Examination of the skin revealed no evidence of significant rashes, suspicious appearing nevi or other concerning lesions. Neurologically the patient is withdrawing to pain. Ablation all 4 extremities. Neurologic exam is nonfocal. Pupils are equal and reactive to light. Results - Laboratory Findings CBC and BMP: 08/17/21 13:00 08/17/21 07:53 ABG ABG pH 7.44 (7.35-7.45) 08/17/21 05:12 ABG pCO2 16 mmHg (35-45) L* 08/17/21 05:12 ABG pO2 229 mmHg (83-108) H 08/17/21 05:12 ABG O2 Saturation 100.0 % (94-97) H 08/17/21 05:12 PT/INR, D-dimer PT 11.5 sec (9.0-12.0) 08/17/21 07:53 INR 1.1 (<1.2) 08/17/21 07:53 Abnormal lab findings: Abnormal Labs 08/16/21 08/16/21 08/16/21 01:41 01:41 01:41 WBC 28.4 H RBC 3.11 L Hgb 9.7 L Hct 32.1 L MCV 103.2 H MCHC 30.3 L RDW 16.9 H Neutrophils # 25.5 H Monocytes # 1.4 H APTT 20.3 L ABG pCO2 ABG pO2 ABG HCO3 ABG Total CO2 ABG O2 Saturation Potassium 5.4 H Carbon Dioxide 8 L* BUN 60 H Creatinine 4.84 H Glucose 289 H POC Glucose (mg/dL) Plasma Lactic Acid Jeff Alkaline Phosphatase 204 H Troponin I Albumin 2.9 L 08/16/21 08/16/21 08/16/21 01:41 01:41 23:00 WBC RBC Hgb Hct MCV MCHC RDW Neutrophils # Monocytes # APTT ABG pCO2 ABG pO2 ABG HCO3 ABG Total CO2 ABG O2 Saturation Potassium Carbon Dioxide BUN Creatinine Glucose POC Glucose (mg/dL) 268 H Plasma Lactic Acid Jeff 5.0 H* Alkaline Phosphatase Troponin I 0.062 H* Albumin 08/17/21 08/17/21 08/17/21 04:45 04:45 05:12 WBC RBC Hgb Hct MCV MCHC RDW Neutrophils # Monocytes # APTT ABG pCO2 16 L* ABG pO2 229 H ABG HCO3 11 L ABG Total CO2 11 L ABG O2 Saturation 100.0 H Potassium Carbon Dioxide BUN Creatinine Glucose POC Glucose (mg/dL) Plasma Lactic Acid Jeff 3.4 H* Alkaline Phosphatase Troponin I 0.059 H* Albumin 08/17/21 08/17/21 08/17/21 07:53 07:53 07:53 WBC 26.6 H RBC 2.78 L Hgb 8.7 L Hct 29.0 L MCV 104.2 H MCHC 30.0 L RDW 16.7 H Neutrophils # 23.1 H Monocytes # 1.6 H APTT 20.7 L ABG pCO2 ABG pO2 ABG HCO3 ABG Total CO2 ABG O2 Saturation Potassium Carbon Dioxide BUN Creatinine Glucose POC Glucose (mg/dL) Plasma Lactic Acid Jeff Alkaline Phosphatase Troponin I 0.054 H* Albumin 08/17/21 08:58 WBC RBC Hgb Hct MCV MCHC RDW Neutrophils # Monocytes # APTT ABG pCO2 ABG pO2 ABG HCO3 ABG Total CO2 ABG O2 Saturation Potassium Carbon Dioxide BUN Creatinine Glucose POC Glucose (mg/dL) 170 H Plasma Lactic Acid Jeff Alkaline Phosphatase Troponin I Albumin - Diagnostic Findings Chest x-ray: image reviewed CT scan - chest: image reviewed Assessment and Plan Plan: 1 Altered mental status which is essentially multifactorial this point in time. I think is a component of metabolic encephalopathy due to above-mentioned co morbidities. The patient may have a baseline dementia in addition. Neurologic exam is nonfocal at this point in time. 2 PETE on top opf CKD stage 3 3 anion metabolic acidosis/lactic acidosis 4 LLE DVT, unsure if the patient was taken and anticoagulation outpatient basis currently on IV heparin 5 New onset Afib /RVR , issac is on cardizem at 10 mg/hr and she is on IV heparin 6 acute leukocutosis 7 recent infection with Coronavirus , without obvious coronavirus associated pneumonia. The patient remains on oxygen for now. No signs of any respiratory distress. 8 Escherichia coli urinary tract infection, recent, and I suspect a recurrent infection. This is a multidrug resistant E. coli, sensitive to Zosyn 9 Uterus/pelvic mass,Recent exploratory laparotomy, right colectomy and ileostomy, with repair of umbilicus hernia, and mucous fistula, between June 20 and June 30, 2021. 10 History of CHF. Moderate concentric LV hypertrophy with preserved LV function with an ejection fraction of 55-60% and severe pulmonary hypertension with a PA pressure of 87 based on an earlier echocardiogram. 11 History of diabetes mellitus. 12 History of hyperlipidemia. 13 History of hypertension. 14 Osteoarthritis. 15 chronic neuropathy. 16 COPD 17 Chronic anemia, with interval drop in hemoglobin. There is no evidence of any GI bleeding at this point in time Plan This patient is critically ill The patient may need in ICU care and without going to move her to the ICU was bed available Beckett catheter inserted and the patient is currently on a bicarb infusion Monitor electrolytes Nephrology consultation Cardizem drip for rate control Continue IV heparin monitor the hemoglobin and watch for any signs of bleeding Continue empiric antibiotic coverage with a combination of Zosyn and Levaquin The triple-lumen catheter is folded in the subclavian vein. This will be kept and as long as his functional Prognosis poor baseline above-mentioned comorbidities. Cultures will be sent. We'll make further recommendations based on her progress. Will advise evaluation of advanced directives and this patient by the primary care team. Time with Patient: Greater than 30
--- NOTE | 2021-08-17 14:46 | P.PN ---
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 Quiñonez, and recent admission from 07/29/21-08/04/21 for acute respiratory failure with hypoxia secondary to Covid 19 pneumonitis. Patient presented to the emergency department by EMS with a chief complaint of alteration in mental status, nausea and coffee ground emesis. Patient underwent full evaluation. She was found to be tachycardic 120s to 140s, to 20-24 breaths per minute, hypoxic requiring oxygen supplementation with placement on nonrebreather, and found to have a low-grade temp of 99.9F. EKG revealed atrial fibrillation with a rapid ventricular rate of 148 bpm. Labs revealed significant leukocytosis with WBC count 28.4, anemic with hemoglobin of 9.7, hyperkalemic with potassium 5.4, acidotic with chloride 107, CO2 8, anion gap 22, and plasma lactic acid of 5.0 acute kidney injury with BUN 60, creatinine 4.84, and GFR of 8 with baseline creatinine of 1.8-2.0. Troponins were elevated at 0.062 and 0.054. Pro-calcitonin also elevated at 1.50. Urinalysis positive for infection. Chest x-ray showing mild pulmonary fibrotic changes with no evidence of heart failure or acute cardiopulmonary process. CT chest, abdomen, and pelvis without contrast revealed no evidence of bowel obstruction with no free air however there was a reported new complex 6 x 4 cm cyst on right ovary which is reported being new compared to previous exam. Left lower extremity Dop plers were positive for DVT extending from the left popliteal vein to the femoral vein. Patient was started on heparin infusion for treatment of acute DVT, Cardizem infusion for atrial fibrillation with RVR, bicarb infusion for severe metabolic acidosis with a critical bicarb of 8. Given sepsis bolus of 3 L normal saline and started on IV antibiotics Zosyn and Levaquin. Consultations were placed general surgery for concerns of GI bleed, cardiology for elevated troponin and A. fib RVR, nephrology for acute renal failure and severe metabolic acidosis requiring bicarbonate infusion, and hematology secondary to development of DVT while on oral anticoagulant. Consult was also placed to peanut cleaner secondary to critically ill patient, at this time patient awaiting bed placement on stepdown unit. Called to update patient's son, Yanick, I spoke with him and updated him on mother's critical condition. Physical exam: Patient was seen and fully evaluated at the bedside in the emergency department this morning. Patient's only complaint is pain in her lower extremities. She denies having any headache, lightheadedness, dizziness, chest pain, pal pitations, shortness of breath, abdominal pain or discomfort, or nausea. Patient has had no further episodes of coffee-ground emesis since arrival to the emergency department but does appear to have very dark liquid stool in ostomy bag concerning for blood. Occult stool to be sent to lab for analysis. Orders place for CBC every 4 hours to monitor closely while patient remains on heparin infusion and call placed to lab regarding important need for timely draws for close monitoring of hemoglobin. Secondary to hypoxia there is concerns for possible PE especially with current acute DVT, however due to patient's renal function she is unable to get CTA. Order placed for VQ scan now that pt is off of NRB and only requiring 6L O2 via NC. Morning labs reviewed. Leukocytosis slightly improved with WBCs 26.6, hemoglobin decreased by 1 g to 8.7. Bicarb infusion to continue and we will monitor closely. Bicarb increased from 8 to 11 and PETE with hyperkalemia also slightly improved with potassium of 5.3, BUN 62, and creatinine of 4.49 with GFR of 9. Lactate now 1.3. Pending urine culture r esults and blood culture results, we will continue with IV antibiotics Zosyn and Levaquin. Vital signs reviewed and stable. General: Patient appears chronically ill and in mild distress. Obese. Derm: Skin warm and dry, pallor present Head: Atraumatic, normocephalic and symmetric. Eyes: EOMs intact, no lid lag, and anicteric sclera Mouth: no lip lesions, mucus membranes moist Cardiovascular: Irregularly irregular rhythm with tachycardic rate no murmur, positive posterior tibial pulses bilaterally, and cap refill < 2 seconds. Lungs: Respirations even, regular, and unlabored on room air. Lungs CTA bilaterally, no rhonchi, no rales, no wheezing, and no accessory muscle usage. Abdominal: Obese abdomen soft, nontender to palpation. Ileostomy in place with dark nearly black-colored liquid stool in ostomy bag, mucous fistula present to left upper quadrant. Stomas are pink. Ext: ROM intact. No gross muscle atrophy, no contractures. Left lower extremity 1+ pitting edema right lower extremity no edema. Neuro: Speech clear patient able to speak in only 2-3 word sentences, GCS 14. Face symmetrical with no noted focal neuro deficits Psych: Alert and oriented to person, place, time, and situation. Appropriate and pleasant affect. Assessment and Plan of Care: Metabolic encephalopathy, Likely multifactorial resulting from current critical state with severe metabolic acidosis, severe sepsis, PETE, and following conditions listed below. Severe sepsis of unclear etiology possibly urosepsis versus other source such as abdominal -Patient received sepsis bolus of 3 L in ED resulting in normalization of lactate 1.3 -Continuation of IV antibiotics with Zosyn and Levaquin -Blood cultures -Urine culture -Continued close monitoring with repeat a.m. labs. -Telemetry monitoring -Pending further results to determine exact etiology of origin of sepsis, may consider consult to infectious disease. GI bleed with reports of coffee-ground emesis Acute on chronic anemia slightly below baseline hemoglobin of 9 -Protonix 80 mg bolus administered in ED and to be followed by 40 mg IVP twice daily. -Hemoglobin to be monitored very closely as patient also requires anticoagulation at this time for acute large DVT to left lower extremity. -Gen. surgery was consulted, appreciate further recommendations. -Plastic Cutter consulted secondary to critically ill patient, appreciate recommendations Acute DVT of left lower extremity Acute hypoxic respiratory failure, recent admission for Covid 19 pneumonitis from 07/29/21 through 08/04/21 -Continuation of heparin infusion as DVT developed while patient was on anticoagulation with Eliquis -Very close monitoring for signs of continued bleeding and monitor hemoglobin closely, orders for CBC every 4 hours. -Consult placed to hematology secondary to acute DVT while on oral anticoagulant. -VQ scan to be completed to rule out PE Acute kidney injury on chronic kidney disease stage III Severe Metabolic acidosis Lactic acidosis UTI with history of [id number] E. coli -Continue bicarbonate infusion -Consult nephrology -Insert Beckett catheter for close monitoring of I's and O's. -Treat UTI with Zosyn as previous culture was sensitive -Renal ultrasound -Caution with nephrotoxic medications. -Follow up on urine culture. Atrial fibrillation with RVR Elevated troponin, flat, likely secondary to RVR Chronic diastolic heart failure with previously known EF of 55-60% -Continuation of Cardizem infusion -Cardiology consulted, appreciate further recommendations -Continuous telemetry monitoring -Recent echocardiogram completed 06/23/21 revealed a normal EF between 55 and 60% with severe pulmonary hypertension. Insulin-dependent Diabetes mellitus -Continue long-acting insulin in place patient on glycemic protocol with NovoLog sliding scale. Incidental finding on imaging -CT reported new complex 6 x 4 cm cyst on right ovary which is reported being new compared to previous exam -Previous surgical report from 06/20/21 stated findings of a 3.5 cm lesion on right ovary concerning for potential ovarian cancer. -Patient will need to follow up outpatient with gynecology and oncology for further evaluation and biopsies once medically stable. Hypertension Hyperlipidemia -Continue daily medication regimen. CODE STATUS: Full code DVT prophylaxis: Heparin infusion Discussed with: Patient, patient's son Yanick Anticipated discharge date: Clinical course to determine Anticipated discharge place: Clinical course to determine A total of 50 minutes was spent on the care of this complex patient more than 50% of the time was spent in counseling and care coordination. Objective - Vital Signs Vital signs: Vital Signs Temp 97.5 F L 08/17/21 01:41 Pulse 120 H 08/17/21 08:48 Resp 16 08/17/21 08:48 BP 108/69 08/17/21 08:48 Pulse Ox 95 08/17/21 08:48 Intake & Output 08/16/21 08/17/21 08/17/21 18:59 06:59 18:59 Intake Total 20.167 Balance 20.167 Weight 97.522 kg Intake: Intake, IV Titration 20.167 Amount Diltiazem 125 mg In 20.167 Sodium Chloride 0.9% 100 ml @ 5 MG/HR 5 mls/hr IV .Q24H [facility] Rx#:[id number] - Labs CBC & Chem 7: 08/17/21 07:53 08/16/21 01:41 Labs: Abnormal Lab Results - Last 24 Hours (Table) 08/16/21 08/16/21 08/16/21 Range/Units 01:41 01:41 01:41 WBC 28.4 H (3.8-10.6) k/uL RBC 3.11 L (3.80-5.40) m/uL Hgb 9.7 L (11.4-16.0) gm/dL Hct 32.1 L (34.0-46.0) % MCV 103.2 H (80.0-100.0) fL MCHC 30.3 L (31.0-37.0) g/dL RDW 16.9 H (11.5-15.5) % Neutrophils # 25.5 H (1.3-7.7) k/uL Monocytes # 1.4 H (0-1.0) k/uL APTT 20.3 L (22.0-30.0) sec ABG pCO2 (35-45) mmHg ABG pO2 (83-108) mmHg ABG HCO3 (21-25) mmol/L ABG Total CO2 (19-24) mmol/L ABG O2 Saturation (94-97) % Potassium 5.4 H (3.5-5.1) mmol/L Carbon Dioxide 8 L* (22-30) mmol/L BUN 60 H (7-17) mg/dL Creatinine 4.84 H (0.52-1.04) mg/dL Glucose 289 H (74-99) mg/dL POC Glucose (mg/dL) (75-99) mg/dL Plasma Lactic Acid Jeff (0.7-2.0) mmol/L Alkaline Phosphatase 204 H (38-126) U/L Troponin I (0.000-0.034) ng/mL Albumin 2.9 L (3.5-5.0) g/dL 08/16/21 08/16/21 08/16/21 Range/Units 01:41 01:41 23:00 WBC (3.8-10.6) k/uL RBC (3.80-5.40) m/uL Hgb (11.4-16.0) gm/dL Hct (34.0-46.0) % MCV (80.0-100.0) fL MCHC (31.0-37.0) g/dL RDW (11.5-15.5) % Neutrophils # (1.3-7.7) k/uL Monocytes # (0-1.0) k/uL APTT (22.0-30.0) sec ABG pCO2 (35-45) mmHg ABG pO2 (83-108) mmHg ABG HCO3 (21-25) mmol/L ABG Total CO2 (19-24) mmol/L ABG O2 Saturation (94-97) % Potassium (3.5-5.1) mmol/L Carbon Dioxide (22-30) mmol/L BUN (7-17) mg/dL Creatinine (0.52-1.04) mg/dL Glucose (74-99) mg/dL POC Glucose (mg/dL) 268 H (75-99) mg/dL Plasma Lactic Acid Jfef 5.0 H* (0.7-2.0) mmol/L Alkaline Phosphatase (38-126) U/L Troponin I 0.062 H* (0.000-0.034) ng/mL Albumin (3.5-5.0) g/dL 08/17/21 08/17/21 08/17/21 Range/Units 04:45 04:45 05:12 WBC (3.8-10.6) k/uL RBC (3.80-5.40) m/uL Hgb (11.4-16.0) gm/dL Hct (34.0-46.0) % MCV (80.0-100.0) fL MCHC (31.0-37.0) g/dL RDW (11.5-15.5) % Neutrophils # (1.3-7.7) k/uL Monocytes # (0-1.0) k/uL APTT (22.0-30.0) sec ABG pCO2 16 L* (35-45) mmHg ABG pO2 229 H (83-108) mmHg ABG HCO3 11 L (21-25) mmol/L ABG Total CO2 11 L (19-24) mmol/L ABG O2 Saturation 100.0 H (94-97) % Potassium (3.5-5.1) mmol/L Carbon Dioxide (22-30) mmol/L BUN (7-17) mg/dL Creatinine (0.52-1.04) mg/dL Glucose (74-99) mg/dL POC Glucose (mg/dL) (75-99) mg/dL Plasma Lactic Acid Jeff 3.4 H* (0.7-2.0) mmol/L Alkaline Phosphatase (38-126) U/L Troponin I 0.059 H* (0.000-0.034) ng/mL Albumin (3.5-5.0) g/dL 08/17/21 08/17/21 08/17/21 Range/Units 07:53 07:53 07:53 WBC 26.6 H (3.8-10.6) k/uL RBC 2.78 L (3.80-5.40) m/uL Hgb 8.7 L (11.4-16.0) gm/dL Hct 29.0 L (34.0-46.0) % MCV 104.2 H (80.0-100.0) fL MCHC 30.0 L (31.0-37.0) g/dL RDW 16.7 H (11.5-15.5) % Neutrophils # 23.1 H (1.3-7.7) k/uL Monocytes # 1.6 H (0-1.0) k/uL APTT 20.7 L (22.0-30.0) sec ABG pCO2 (35-45) mmHg ABG pO2 (83-108) mmHg ABG HCO3 (21-25) mmol/L ABG Total CO2 (19-24) mmol/L ABG O2 Saturation (94-97) % Potassium (3.5-5.1) mmol/L Carbon Dioxide (22-30) mmol/L BUN (7-17) mg/dL Creatinine (0.52-1.04) mg/dL Glucose (74-99) mg/dL POC Glucose (mg/dL) (75-99) mg/dL Plasma Lactic Acid Jeff (0.7-2.0) mmol/L Alkaline Phosphatase (38-126) U/L Troponin I 0.054 H* (0.000-0.034) ng/mL Albumin (3.5-5.0) g/dL 08/17/21 Range/Units 08:58 WBC (3.8-10.6) k/uL RBC (3.80-5.40) m/uL Hgb (11.4-16.0) gm/dL Hct (34.0-46.0) % MCV (80.0-100.0) fL MCHC (31.0-37.0) g/dL RDW (11.5-15.5) % Neutrophils # (1.3-7.7) k/uL Monocytes # (0-1.0) k/uL APTT (22.0-30.0) sec ABG pCO2 (35-45) mmHg ABG pO2 (83-108) mmHg ABG HCO3 (21-25) mmol/L ABG Total CO2 (19-24) mmol/L ABG O2 Saturation (94-97) % Potassium (3.5-5.1) mmol/L Carbon Dioxide (22-30) mmol/L BUN (7-17) mg/dL Creatinine (0.52-1.04) mg/dL Glucose (74-99) mg/dL POC Glucose (mg/dL) 170 H (75-99) mg/dL Plasma Lactic Acid Jeff (0.7-2.0) mmol/L Alkaline Phosphatase (38-126) U/L Troponin I (0.000-0.034) ng/mL Albumin (3.5-5.0) g/dL <Zita Nathan - Last Filed: 08/18/21 12:54> Objective - Vital Signs Vital signs: Vital Signs Temp 98.3 F 08/18/21 08:00 Pulse 115 H 08/18/21 11:00 Resp 22 08/18/21 11:00 BP 97/40 08/18/21 11:00 Pulse Ox 98 08/18/21 11:00 Intake & Output 08/17/21 08/18/21 08/18/21 18:59 06:59 18:59 Intake Total 146.283 635.826 603.641 Output Total 1410 220 Balance 146.283 -774.174 383.641 Intake: IV 348 516 Amiodarone 450 mg In 48 16 Dextrose 5% in Water 250 ml @ 0.5 MG/MIN 16.667 mls/hr IV .Q15H [facility] Rx#: [id number] Dextrose 5% in Water 1, 300 500 000 ml @ 100 mls/hr IV . [id number] [facility] with Sodium Bicarb (1 Meq/ml) 150 ml Rx#:[id number] Intake, IV Titration 146.283 287.826 87.641 Amount Diltiazem 125 mg In 104.833 Sodium Chloride 0.9% 100 ml @ 5 MG/HR 5 mls/hr IV .Q24H [facility] Rx#:[id number] Heparin Sod,Pork in 0.45% 146.283 31.597 NaCl 25,000 unit In 0.45 % NaCl 1 250ml.bag @ 18 UNITS/KG/HR 17.554 mls/hr IV .[id number] [facility] Rx#: [id number] Norepinephrine 4 mg In 182.993 56.044 Sodium Chloride 0.9% 250 ml @ 0.05 MCG/KG/MIN 18. 578 mls/hr IV .[id number] [facility] Rx#:[id number] Output: Urine 1360 220 Stool 50 Other: Voiding Method Indwelling Catheter Indwelling Catheter - Labs CBC & Chem 7: 08/18/21 05:48 08/18/21 05:48 Labs: Abnormal Lab Results - Last 24 Hours (Table) 08/17/21 08/17/21 08/17/21 Range/Units 12:55 13:00 14:23 WBC 26.7 H (3.8-10.6) k/uL RBC 2.54 L (3.80-5.40) m/uL Hgb 7.7 L (11.4-16.0) gm/dL Hct 25.7 L (34.0-46.0) % MCV 101.1 H (80.0-100.0) fL MCHC 30.1 L (31.0-37.0) g/dL RDW 17.2 H (11.5-15.5) % Neutrophils # (1.3-7.7) k/uL Monocytes # (0-1.0) k/uL ESR (0-20) mm/hr Retic Count 6.5 H (0.5-2.0) % APTT (22.0-30.0) sec ABG pH (7.35-7.45) ABG pCO2 (35-45) mmHg ABG pO2 (83-108) mmHg ABG HCO3 (21-25) mmol/L ABG Total CO2 (19-24) mmol/L ABG O2 Saturation (94-97) % Chloride (98-107) mmol/L Carbon Dioxide (22-30) mmol/L BUN (7-17) mg/dL Creatinine (0.52-1.04) mg/dL Glucose (74-99) mg/dL POC Glucose (mg/dL) (75-99) mg/dL Calcium (8.4-10.2) mg/dL Magnesium (1.6-2.3) mg/dL Iron (50-170) ug/dL TIBC (228-460) ug/dL % Saturation (12.00-45.00) Transferrin (204.0-354.0) mg/dL Ferritin (10.0-291.0) ng/mL Lactate Dehydrogenase (313-618) U/L Total Protein (PEP) (6.2-8.2) g/dL Urine Appearance (Clear) Urine Protein (Negative) Urine Glucose (UA) (Negative) Urine Blood (Negative) Ur Leukocyte Esterase (Negative) Urine RBC (0-5) /hpf Urine WBC (0-5) /hpf Ur Squamous Epith Cells (0-4) /hpf Urine Bacteria (None) /hpf Urine Mucus (None) /hpf Stool Occult Blood Positive H (Negative) IgA (60.0-350.0) mg/dL 08/17/21 08/17/21 08/17/21 Range/Units 14:23 14:23 14:23 WBC (3.8-10.6) k/uL RBC (3.80-5.40) m/uL Hgb (11.4-16.0) gm/dL Hct (34.0-46.0) % MCV (80.0-100.0) fL MCHC (31.0-37.0) g/dL RDW (11.5-15.5) % Neutrophils # (1.3-7.7) k/uL Monocytes # (0-1.0) k/uL ESR (0-20) mm/hr Retic Count (0.5-2.0) % APTT (22.0-30.0) sec ABG pH (7.35-7.45) ABG pCO2 (35-45) mmHg ABG pO2 (83-108) mmHg ABG HCO3 (21-25) mmol/L ABG Total CO2 (19-24) mmol/L ABG O2 Saturation (94-97) % Chloride (98-107) mmol/L Carbon Dioxide (22-30) mmol/L BUN (7-17) mg/dL Creatinine (0.52-1.04) mg/dL Glucose (74-99) mg/dL POC Glucose (mg/dL) (75-99) mg/dL Calcium (8.4-10.2) mg/dL Magnesium (1.6-2.3) mg/dL Iron 17 L (50-170) ug/dL TIBC 206 L (228-460) ug/dL % Saturation 8.41 L (12.00-45.00) Transferrin 147.0 L (204.0-354.0) mg/dL Ferritin 394.0 H (10.0-291.0) ng/mL Lactate Dehydrogenase 1002 H (313-618) U/L Total Protein (PEP) 5.8 L (6.2-8.2) g/dL Urine Appearance (Clear) Urine Protein (Negative) Urine Glucose (UA) (Negative) Urine Blood (Negative) Ur Leukocyte Esterase (Negative) Urine RBC (0-5) /hpf Urine WBC (0-5) /hpf Ur Squamous Epith Cells (0-4) /hpf Urine Bacteria (None) /hpf Urine Mucus (None) /hpf Stool Occult Blood (Negative) IgA 655.0 H (60.0-350.0) mg/dL 08/17/21 08/17/21 08/17/21 Range/Units 15:21 15:21 16:54 WBC 26.8 H (3.8-10.6) k/uL RBC 2.51 L (3.80-5.40) m/uL Hgb 8.0 L (11.4-16.0) gm/dL Hct 26.3 L (34.0-46.0) % MCV 104.7 H (80.0-100.0) fL MCHC 30.2 L (31.0-37.0) g/dL RDW 17.1 H (11.5-15.5) % Neutrophils # (1.3-7.7) k/uL Monocytes # (0-1.0) k/uL ESR 48 H (0-20) mm/hr Retic Count (0.5-2.0) % APTT >200.0 H* (22.0-30.0) sec ABG pH 7.32 L (7.35-7.45) ABG pCO2 22 L (35-45) mmHg ABG pO2 135 H (83-108) mmHg ABG HCO3 12 L (21-25) mmol/L ABG Total CO2 12 L (19-24) mmol/L ABG O2 Saturation 99.3 H (94-97) % Chloride (98-107) mmol/L Carbon Dioxide (22-30) mmol/L BUN (7-17) mg/dL Creatinine (0.52-1.04) mg/dL Glucose (74-99) mg/dL POC Glucose (mg/dL) (75-99) mg/dL Calcium (8.4-10.2) mg/dL Magnesium (1.6-2.3) mg/dL Iron (50-170) ug/dL TIBC (228-460) ug/dL % Saturation (12.00-45.00) Transferrin (204.0-354.0) mg/dL Ferritin (10.0-291.0) ng/mL Lactate Dehydrogenase (313-618) U/L Total Protein (PEP) (6.2-8.2) g/dL Urine Appearance (Clear) Urine Protein (Negative) Urine Glucose (UA) (Negative) Urine Blood (Negative) Ur Leukocyte Esterase (Negative) Urine RBC (0-5) /hpf Urine WBC (0-5) /hpf Ur Squamous Epith Cells (0-4) /hpf Urine Bacteria (None) /hpf Urine Mucus (None) /hpf Stool Occult Blood (Negative) IgA (60.0-350.0) mg/dL 08/17/21 08/17/21 08/17/21 Range/Units 16:57 20:12 22:09 WBC 23.0 H (3.8-10.6) k/uL RBC 2.52 L (3.80-5.40) m/uL Hgb 7.8 L (11.4-16.0) gm/dL Hct 26.4 L (34.0-46.0) % MCV 104.7 H (80.0-100.0) fL MCHC 29.4 L (31.0-37.0) g/dL RDW 17.2 H (11.5-15.5) % Neutrophils # (1.3-7.7) k/uL Monocytes # (0-1.0) k/uL ESR (0-20) mm/hr Retic Count (0.5-2.0) % APTT (22.0-30.0) sec ABG pH (7.35-7.45) ABG pCO2 (35-45) mmHg ABG pO2 (83-108) mmHg ABG HCO3 (21-25) mmol/L ABG Total CO2 (19-24) mmol/L ABG O2 Saturation (94-97) % Chloride (98-107) mmol/L Carbon Dioxide (22-30) mmol/L BUN (7-17) mg/dL Creatinine (0.52-1.04) mg/dL Glucose (74-99) mg/dL POC Glucose (mg/dL) 138 H 161 H (75-99) mg/dL Calcium (8.4-10.2) mg/dL Magnesium (1.6-2.3) mg/dL Iron (50-170) ug/dL TIBC (228-460) ug/dL % Saturation (12.00-45.00) Transferrin (204.0-354.0) mg/dL Ferritin (10.0-291.0) ng/mL Lactate Dehydrogenase (313-618) U/L Total Protein (PEP) (6.2-8.2) g/dL Urine Appearance (Clear) Urine Protein (Negative) Urine Glucose (UA) (Negative) Urine Blood (Negative) Ur Leukocyte Esterase (Negative) Urine RBC (0-5) /hpf Urine WBC (0-5) /hpf Ur Squamous Epith Cells (0-4) /hpf Urine Bacteria (None) /hpf Urine Mucus (None) /hpf Stool Occult Blood (Negative) IgA (60.0-350.0) mg/dL 08/18/21 08/18/21 08/18/21 Range/Units 03:06 03:56 05:30 WBC 22.0 H (3.8-10.6) k/uL RBC 2.32 L (3.80-5.40) m/uL Hgb 7.3 L (11.4-16.0) gm/dL Hct 23.4 L (34.0-46.0) % MCV 100.9 H (80.0-100.0) fL MCHC (31.0-37.0) g/dL RDW 17.4 H (11.5-15.5) % Neutrophils # (1.3-7.7) k/uL Monocytes # (0-1.0) k/uL ESR (0-20) mm/hr Retic Count (0.5-2.0) % APTT (22.0-30.0) sec ABG pH (7.35-7.45) ABG pCO2 (35-45) mmHg ABG pO2 (83-108) mmHg ABG HCO3 (21-25) mmol/L ABG Total CO2 (19-24) mmol/L ABG O2 Saturation (94-97) % Chloride (98-107) mmol/L Carbon Dioxide (22-30) mmol/L BUN (7-17) mg/dL Creatinine (0.52-1.04) mg/dL Glucose (74-99) mg/dL POC Glucose (mg/dL) 260 H (75-99) mg/dL Calcium (8.4-10.2) mg/dL Magnesium (1.6-2.3) mg/dL Iron (50-170) ug/dL TIBC (228-460) ug/dL % Saturation (12.00-45.00) Transferrin (204.0-354.0) mg/dL Ferritin (10.0-291.0) ng/mL Lactate Dehydrogenase (313-618) U/L Total Protein (PEP) (6.2-8.2) g/dL Urine Appearance Cloudy H (Clear) Urine Protein 1+ H (Negative) Urine Glucose (UA) 2+ H (Negative) Urine Blood Small H (Negative) Ur Leukocyte Esterase Large H (Negative) Urine RBC 9 H (0-5) /hpf Urine WBC 56 H (0-5) /hpf Ur Squamous Epith Cells 10 H (0-4) /hpf Urine Bacteria Moderate H (None) /hpf Urine Mucus Rare H (None) /hpf Stool Occult Blood (Negative) IgA (60.0-350.0) mg/dL 08/18/21 08/18/21 08/18/21 Range/Units 05:48 05:48 07:09 WBC 21.5 H (3.8-10.6) k/uL RBC 2.46 L (3.80-5.40) m/uL Hgb 7.7 L (11.4-16.0) gm/dL Hct 26.0 L (34.0-46.0) % MCV 105.6 H (80.0-100.0) fL MCHC 29.7 L (31.0-37.0) g/dL RDW 16.8 H (11.5-15.5) % Neutrophils # 18.8 H (1.3-7.7) k/uL Monocytes # 1.3 H (0-1.0) k/uL ESR (0-20) mm/hr Retic Count (0.5-2.0) % APTT (22.0-30.0) sec ABG pH (7.35-7.45) ABG pCO2 (35-45) mmHg ABG pO2 (83-108) mmHg ABG HCO3 (21-25) mmol/L ABG Total CO2 (19-24) mmol/L ABG O2 Saturation (94-97) % Chloride 110 H (98-107) mmol/L Carbon Dioxide 11 L (22-30) mmol/L BUN 62 H (7-17) mg/dL Creatinine 4.25 H (0.52-1.04) mg/dL Glucose 268 H (74-99) mg/dL POC Glucose (mg/dL) 274 H (75-99) mg/dL Calcium 7.8 L (8.4-10.2) mg/dL Magnesium 1.4 L (1.6-2.3) mg/dL Iron (50-170) ug/dL TIBC (228-460) ug/dL % Saturation (12.00-45.00) Transferrin (204.0-354.0) mg/dL Ferritin (10.0-291.0) ng/mL Lactate Dehydrogenase (313-618) U/L Total Protein (PEP) (6.2-8.2) g/dL Urine Appearance (Clear) Urine Protein (Negative) Urine Glucose (UA) (Negative) Urine Blood (Negative) Ur Leukocyte Esterase (Negative) Urine RBC (0-5) /hpf Urine WBC (0-5) /hpf Ur Squamous Epith Cells (0-4) /hpf Urine Bacteria (None) /hpf Urine Mucus (None) /hpf Stool Occult Blood (Negative) IgA (60.0-350.0) mg/dL Microbiology - Last 24 Hours (Table) 08/17/21 01:25 Blood Culture - Preliminary Blood No Growth after 24 hours 08/16/21 01:41 Blood Culture - Preliminary Blood No Growth after 24 hours 08/17/21 11:00 Urine Culture - Preliminary Urine,Voided Assessment and Plan Assessment: Patient was seen by Richard Garrett NP and case was discussed. I am in agreement with assessment and plan.
--- NOTE | 2021-08-17 14:48 | P.CRDCN ---
History of Present Illness History of present illness: HISTORY OF PRESENTING ILLNESS Patient is a pleasant 80-year-old female with history of diabetes mellitus type 2, hyperlipidemia, hypertension, chronic kidney disease, previous MRSA infection , previous cardiomyopathy with recovered EF, atrial fibrillation, congestive heart failure. Patient is a poor historian and much of history is supplied by chart. Patient was recently hospitalized and discharged 08/04/2021 for respiratory failure secondary COVID-19 infection. During the hospitalization patient had sepsis and acute kidney injury. There is also some workup of a questionable pelvic mass with a previous history of right colectomy and ileostomy. She apparently was not doing well at home with worsened mental status changes and therefore brought to emergency department. She was found to be in new onset of A. fib with RVR as well as hypotensive with acute kidney injury with a creatinine up to 4.8, lactic acid up to 5. White blood cell 28.4, hemoglobin 9.7, sodium 137, potassium 5.4, bicarbonate 8, BUN 60, creatinine 4.8, troponin 0.06, 0.059, albumin 2.9, pro-calcitonin 1.5, coronavirus negative. She was found to have large leukocyte esterases and 75 white blood cells in her urine. CT abdomen and pelvis was performed which showed colostomy and ileostomy noted with no evidence of bowel obstruction, no free air as well as a new complex cyst of the right ovary noted. Chest x-ray shows mild may fibrotic changes no heart failure and no specific infiltrates. Previous echo from 06/23/2021 showed EF 55-60% RV severely enlarged, mild mitral regurgitation, moderate tricuspid regurgitation with RVSP of 87. Cardiology was consulted for A. fib with RVR. EKG initially showed A. fib with heart rate 140s with nonspecific ST, T-wave abnormalities. Patient was placed on a Cardizem drip and heart rates predominantly improved into the 110s to 120 range. She was also res tarted on her home metoprolol 50 mg twice a day. She was placed on a heparin drip for her atrial fibrillation however is normally on Eliquis 2.5 mg twice a day. REVIEW OF SYSTEMS At the time of my exam: Patient not answering any questions and therefore unable to perform review of systems. PHYSICAL EXAMINATION Vital signs reviewed. CONSTITUTIONAL: Chronically ill-appearing, obese HEENT: Head is normocephalic. Pupils are equal, round. Sclerae anicteric. Mucous membranes of the mouth are moist. No JVD. No carotid bruit. CHEST EXAMINATION: Lungs are clear to auscultation. No chest wall tenderness is noted on palpation or with deep breathing. HEART EXAMINATION: Irregular rate and rhythm. S1, S2 heard. No murmurs, gallops or rub. ABDOMEN: Soft, nontender. Positive bowel sounds. EXTREMITIES: 2+ peripheral pulses, no lower extremity edema and no calf tenderness. NEUROLOGIC EXAMINATION: Patient is awake, and does not respond appropriately ASSESSMENT 1. Persistent atrial fibrillation with mild RVR 2. Sepsis 3. Acute kidney injury 4. Severe metabolic acidosis 5. Mildly elevated troponins type II mechanism from sepsis, acute kidney injury 6. History of hypertension 7. History of cardiomyopathy with recovered EF by last echo 06/2021 8. Anemia 9. History of colectomy and ileostomy 10. Altered mental status likely related to acute kidney injury, sepsis 11. Pulmonary hypertension with moderate tricuspid regurgitation, dilated right ventricle PLAN Patient's main presentation appears consistent with sepsis and acute kidney injury. Continue broad-spectrum antibiotics and supportive care. Monitor kidney function, gentle IV fluids. Continue with metoprolol as able and we will start amiodarone as she appeared to be off and on in sinus previously. Continue supportive care and prognosis guarded. Past Medical History Past Medical History: Heart Failure, Diabetes Mellitus, Hyperlipidemia, Hypertension, Osteoarthritis (OA), Renal Disease Additional Past Medical History / Comment(s): INSULIN- DIABETIC TYPE 2 , ACUTE KIDNEY FAILURE ,ILEOSTOMY,MUCOUS FISTULA, History of Any Multi-Drug Resistant Organisms: MRSA Date of last positivie culture/infection: 11/18/18 MDRO Source:: URINE MRSA Past Surgical History: Section, Cholecystectomy Additional Past Surgical History / Comment(s): Bilateral cataract removals/lens implants, wrist surgery, ILEOSTOMY - JUN 2021 Past Anesthesia/Blood Transfusion Reactions: No Reported Reaction Additional Past Anesthesia/Blood Transfusion Reaction / Comment(s): Pt recieved blood in past without reaction (after childbirth) Past Psychological History: Anxiety, Depression Smoking Status: Former smoker Past Alcohol Use History: None Reported Past Drug Use History: None Reported - Past Family History Father Additional Family Medical History / Comment(s): Father from an industrial exposure at the age of 42 yrs. Mother Family Medical History: No Reported History Additional Family Medical History / Comment(s): Mother lived to be 95 yrs old. Medications and Allergies Home Medications Medication Instructions Recorded Confirmed Type FLUoxetine HCL [PROzac] 40 mg PO DAILY 10/18/18 08/16/21 History Metoprolol Tartrate [Lopressor] 50 mg PO BID 10/18/18 08/16/21 History Acetaminophen [Tylenol Extra 1,000 mg PO BID PRN 06/20/21 08/16/21 History Strength] Calcium Acetate [PhosLo] 667 mg PO TID-W/MEALS 06/20/21 08/16/21 History Pravastatin Sodium [Pravachol] 40 mg PO HS 06/20/21 08/16/21 History Apixaban [Eliquis] 2.5 mg PO BID 30 Days #60 tab 06/24/21 08/16/21 Rx Oxybutynin Chloride [Ditropan] 5 mg PO BID #0 06/30/21 08/16/21 Rx Insulin Lispro Protamin/Lispro See Protocol SQ AC-TID 07/29/21 08/16/21 History [humaLOG Mix 75-25 Kwikpen] Ascorbic Acid [Vitamin C] 1,000 mg PO DAILY tab 08/01/21 08/16/21 Rx Zinc Sulfate [Orazinc] 220 mg PO DAILY cap 08/01/21 08/16/21 Rx Magnesium Oxide [Mag-Ox] 400 mg PO DAILY tab 08/04/21 08/16/21 Rx valACYclovir HCL [Valtrex] 1,000 mg PO DAILY #7 tablet 08/04/21 08/16/21 Rx INSULIN ASPART (NovoLOG) [NovoLOG See Protocol SQ ACHS 08/16/21 08/16/21 History (formulary)] Allergies Allergy/AdvReac Type Severity Reaction Status Date / Time codeine AdvReac Nausea & Verified 08/16/21 23:57 Vomiting Physical Exam Vitals: Vital Signs Temp Pulse Resp BP Pulse Ox 08/17/21 12:56 97.9 F 108 H 19 110/61 100 08/17/21 10:36 99.9 F H 107 H 19 111/63 95 08/17/21 08:48 120 H 16 108/69 95 08/17/21 07:47 122 H 22 123/88 93 L 08/17/21 06:23 124 H 18 101/68 97 08/17/21 05:05 130 H 22 103/57 94 L 08/17/21 03:58 147 H 20 110/68 90 L 08/17/21 03:05 120 H 20 155/98 95 08/17/21 01:41 97.5 F L 141 H 22 108/61 08/17/21 00:05 92 24 112/80 93 L 08/16/21 22:39 97.4 F L 121 H 24 118/100 97 Intake and Output 08/16/21 08/17/21 08/17/21 22:59 06:59 14:59 Intake Total 20.167 Balance 20.167 Intake: Intake, IV Titration 20.167 Amount Diltiazem 125 mg In 20.167 Sodium Chloride 0.9% 100 ml @ 5 MG/HR 5 mls/hr IV .Q24H [facility] Rx#:[id number] Other: Weight 97.522 kg Results 08/17/21 13:00 08/17/21 07:53 Cardiac Enzymes 08/16/21 08/16/21 08/17/21 Range/Units 01:41 01:41 04:45 AST 25 (14-36) U/L Troponin I 0.062 H* 0.059 H* (0.000-0.034) ng/mL 08/17/21 Range/Units 07:53 AST (14-36) U/L Troponin I 0.054 H* (0.000-0.034) ng/mL Coagulation 08/16/21 08/17/21 Range/Units 01:41 07:53 PT 11.5 11.5 (9.0-12.0) sec APTT 20.3 L 20.7 L (22.0-30.0) sec CBC 08/16/21 08/17/21 08/17/21 Range/Units 01:41 07:53 13:00 WBC 28.4 H 26.6 H 26.7 H (3.8-10.6) k/uL RBC 3.11 L 2.78 L 2.54 L (3.80-5.40) m/uL Hgb 9.7 L 8.7 L 7.7 L (11.4-16.0) gm/dL Hct 32.1 L 29.0 L 25.7 L (34.0-46.0) % Plt Count 274 224 238 (150-450) k/uL Comprehensive Metabolic Panel 08/16/21 08/17/21 Range/Units 01:41 07:53 Sodium 137 137 (137-145) mmol/L Potassium 5.4 H 5.3 H (3.5-5.1) mmol/L Chloride 107 112 H (98-107) mmol/L Carbon Dioxide 8 L* 11 L (22-30) mmol/L BUN 60 H 62 H (7-17) mg/dL Creatinine 4.84 H 4.49 H (0.52-1.04) mg/dL Glucose 289 H 167 H (74-99) mg/dL Calcium 9.3 8.6 (8.4-10.2) mg/dL AST 25 (14-36) U/L ALT 20 (4-34) U/L Alkaline Phosphatase 204 H (38-126) U/L Total Protein 6.8 (6.3-8.2) g/dL Albumin 2.9 L (3.5-5.0) g/dL Current Medications Generic Name Dose Route Start Last Admin Trade Name Freq PRN Reason Stop Dose Admin Famotidine 20 mg 08/17/21 09:00 08/17/21 09:17 Famotidine 20 Mg/2 Ml Vial IV 20 mg BID STEPHANIE Administration Fluoxetine HCl 40 mg 08/18/21 09:00 Fluoxetine Hcl 20 Mg Cap PO DAILY STEPHANIE Heparin Sodium (Porcine) 0 unit 08/17/21 07:12 Heparin Sodium 1,000 Un/Ml (10ml Vl) IV PER PROTOCOL PRN Low PTT Protocol Diltiazem HCl 125 mg/ Sodium 125 mls @ 5 mls/hr 08/16/21 23:45 08/17/21 04:06 Chloride IV 10 mg/hr .Q24H STEPHANIE 10 mls/hr Infusion 5 MG/HR Piperacillin Sod/Tazobactam 100 mls @ 25 mls/hr 08/17/21 08:00 08/17/21 08:59 Sod 3.375 gm/ Sodium Chloride IVPB 25 mls/hr Q8HR STEPHANIE Administration Levofloxacin 750 mg/ IV 150 mls @ 100 mls/hr 08/18/21 04:00 Solution IVPB Q24H STEPHANIE Sodium Bicarbonate 150 ml/ 1,150 mls @ 100 mls/hr 08/17/21 05:15 08/17/21 06:07 Dextrose/Water IV Not Given .[id number] STEPHANIE Heparin Sodium/Sodium Chloride 250 mls @ 17.554 mls/hr 08/17/21 07:15 08/17/21 09:21 25,000 unit/ Sodium Chloride IV 18 units/kg/hr .[id number] STEPHANIE 17.554 mls/hr Administration Protocol 18 UNITS/KG/HR Insulin Aspart 0 unit 08/17/21 07:30 08/17/21 09:18 Insulin Aspart (Novolog) 100 Unit/Ml Vial SQ 2 unit ACHS STEPHANIE Administration Protocol Metoprolol Tartrate 50 mg 08/17/21 09:00 08/17/21 09:17 Metoprolol Tartrate 50 Mg Tab PO 50 mg BID STEPHANIE Administration Pantoprazole Sodium 40 mg 08/17/21 09:00 08/17/21 09:17 Pantoprazole 40 Mg/10 Ml Vial IVP 40 mg BID STEPHANIE Administration Pravastatin Sodium 40 mg 08/17/21 21:00 Pravastatin Sodium 40 Mg Tab PO HS [facility] Intake and Output 08/16/21 08/17/21 08/17/21 22:59 06:59 14:59 Intake Total 20.167 Balance 20.167 Intake: Intake, IV Titration 20.167 Amount Diltiazem 125 mg In 20.167 Sodium Chloride 0.9% 100 ml @ 5 MG/HR 5 mls/hr IV .Q24H [facility] Rx#:[id number] Other: Weight 97.522 kg 08/17/21 13:00 08/17/21 07:53
--- NOTE | 2021-08-17 15:21 | P.CONS ---
History of Present Illness - Reason for Consult Consult date: 08/17/21 DVT, MGUS, Renal Failure Requesting physician: Richard Garrett - Chief Complaint FULL CONSULT TO FOLLOW - History of Present Illness Mrs. 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 She now presents with acute DVT, renal failure and just a few weeks after a positive covid infection. She is also chronically anemic baseline between 9-11. We have been asked to further evaluate for anti-coagulation. With the recent covid infection antiphospholipid syndrome should be work-up for choice of best evidence anticoagulation consideration. She presented with mental status changes however during assessment in ER no family available and she was not able to provide a history. Review of Systems ROS unobtainable: due to mental status Past Medical History Past Medical History: Heart Failure, Diabetes Mellitus, Hyperlipidemia, Hypertension, Osteoarthritis (OA), Renal Disease Additional Past Medical History / Comment(s): INSULIN- DIABETIC TYPE 2 , ACUTE KIDNEY FAILURE ,ILEOSTOMY,MUCOUS FISTULA, History of Any Multi-Drug Resistant Organisms: MRSA Year Discovered:: 11/18/18 MDRO Source:: URINE MRSA Past Surgical History: Section, Cholecystectomy Additional Past Surgical History / Comment(s): Bilateral cataract removals/lens implants, wrist surgery, ILEOSTOMY - JUN 2021 Past Anesthesia/Blood Transfusion Reactions: No Reported Reaction Additional Past Anesthesia/Blood Transfusion Reaction / Comm: Pt recieved blood in past without reaction (after childbirth) Past Psychological History: Anxiety, Depression Smoking Status: Former smoker Past Alcohol Use History: None Reported Past Drug Use History: None Reported - Past Family History Father Additional Family Medical History / Comment(s): Father from an industrial exposure at the age of 42 yrs. Mother Family Medical History: No Reported History Additional Family Medical History / Comment(s): Mother lived to be 95 yrs old. Medications and Allergies Home Medications Medication Instructions Recorded Confirmed Type FLUoxetine HCL [PROzac] 40 mg PO DAILY 10/18/18 08/16/21 History Metoprolol Tartrate [Lopressor] 50 mg PO BID 10/18/18 08/16/21 History Acetaminophen [Tylenol Extra 1,000 mg PO BID PRN 06/20/21 08/16/21 History Strength] Calcium Acetate [PhosLo] 667 mg PO TID-W/MEALS 06/20/21 08/16/21 History Pravastatin Sodium [Pravachol] 40 mg PO HS 06/20/21 08/16/21 History Apixaban [Eliquis] 2.5 mg PO BID 30 Days #60 tab 06/24/21 08/16/21 Rx Oxybutynin Chloride [Ditropan] 5 mg PO BID #0 06/30/21 08/16/21 Rx Insulin Lispro Protamin/Lispro See Protocol SQ AC-TID 07/29/21 08/16/21 History [humaLOG Mix 75-25 Kwikpen] Ascorbic Acid [Vitamin C] 1,000 mg PO DAILY tab 08/01/21 08/16/21 Rx Zinc Sulfate [Orazinc] 220 mg PO DAILY cap 08/01/21 08/16/21 Rx Magnesium Oxide [Mag-Ox] 400 mg PO DAILY tab 08/04/21 08/16/21 Rx valACYclovir HCL [Valtrex] 1,000 mg PO DAILY #7 tablet 08/04/21 08/16/21 Rx INSULIN ASPART (NovoLOG) [NovoLOG See Protocol SQ ACHS 08/16/21 08/16/21 History (formulary)] Allergies Allergy/AdvReac Type Severity Reaction Status Date / Time codeine AdvReac Nausea & Verified 08/16/21 23:57 Vomiting Physical Exam Vitals: Vital Signs Temp Pulse Resp BP Pulse Ox 08/17/21 12:56 97.9 F 108 H 19 110/61 100 08/17/21 10:36 99.9 F H 107 H 19 111/63 95 08/17/21 08:48 120 H 16 108/69 95 08/17/21 07:47 122 H 22 123/88 93 L 08/17/21 06:23 124 H 18 101/68 97 08/17/21 05:05 130 H 22 103/57 94 L 08/17/21 03:58 147 H 20 110/68 90 L 08/17/21 03:05 120 H 20 155/98 95 08/17/21 01:41 97.5 F L 141 H 22 108/61 08/17/21 00:05 92 24 112/80 93 L 08/16/21 22:39 97.4 F L 121 H 24 118/100 97 Intake and Output 08/16/21 08/17/21 08/17/21 22:59 06:59 14:59 Intake Total 20.167 Balance 20.167 Intake: Intake, IV Titration 20.167 Amount Diltiazem 125 mg In 20.167 Sodium Chloride 0.9% 100 ml @ 5 MG/HR 5 mls/hr IV .Q24H [facility] Rx#:[id number] Other: Weight 97.522 kg Unable to obtain history NAD Results CBC & Chem 7: 08/17/21 15:21 08/17/21 07:53 Labs: Abnormal Lab Results - Last 24 Hours (Table) 08/16/21 08/16/21 08/16/21 Range/Units 01:41 01:41 01:41 WBC 28.4 H (3.8-10.6) k/uL RBC 3.11 L (3.80-5.40) m/uL Hgb 9.7 L (11.4-16.0) gm/dL Hct 32.1 L (34.0-46.0) % MCV 103.2 H (80.0-100.0) fL MCHC 30.3 L (31.0-37.0) g/dL RDW 16.9 H (11.5-15.5) % Neutrophils # 25.5 H (1.3-7.7) k/uL Monocytes # 1.4 H (0-1.0) k/uL APTT 20.3 L (22.0-30.0) sec ABG pCO2 (35-45) mmHg ABG pO2 (83-108) mmHg ABG HCO3 (21-25) mmol/L ABG Total CO2 (19-24) mmol/L ABG O2 Saturation (94-97) % Potassium 5.4 H (3.5-5.1) mmol/L Chloride (98-107) mmol/L Carbon Dioxide 8 L* (22-30) mmol/L BUN 60 H (7-17) mg/dL Creatinine 4.84 H (0.52-1.04) mg/dL Glucose 289 H (74-99) mg/dL POC Glucose (mg/dL) (75-99) mg/dL Plasma Lactic Acid Jeff (0.7-2.0) mmol/L Alkaline Phosphatase 204 H (38-126) U/L Troponin I (0.000-0.034) ng/mL Albumin 2.9 L (3.5-5.0) g/dL Procalcitonin (0.02-0.09) ng/mL Urine Appearance (Clear) Urine Protein (Negative) Urine Blood (Negative) Ur Leukocyte Esterase (Negative) Urine RBC (0-5) /hpf Urine WBC (0-5) /hpf Urine WBC Clumps (None) /hpf Ur Squamous Epith Cells (0-4) /hpf Urine Bacteria (None) /hpf Hyaline Casts (0-2) /lpf Urine Mucus (None) /hpf Stool Occult Blood (Negative) 08/16/21 08/16/21 08/16/21 Range/Units 01:41 01:41 23:00 WBC (3.8-10.6) k/uL RBC (3.80-5.40) m/uL Hgb (11.4-16.0) gm/dL Hct (34.0-46.0) % MCV (80.0-100.0) fL MCHC (31.0-37.0) g/dL RDW (11.5-15.5) % Neutrophils # (1.3-7.7) k/uL Monocytes # (0-1.0) k/uL APTT (22.0-30.0) sec ABG pCO2 (35-45) mmHg ABG pO2 (83-108) mmHg ABG HCO3 (21-25) mmol/L ABG Total CO2 (19-24) mmol/L ABG O2 Saturation (94-97) % Potassium (3.5-5.1) mmol/L Chloride (98-107) mmol/L Carbon Dioxide (22-30) mmol/L BUN (7-17) mg/dL Creatinine (0.52-1.04) mg/dL Glucose (74-99) mg/dL POC Glucose (mg/dL) 268 H (75-99) mg/dL Plasma Lactic Acid Jeff 5.0 H* (0.7-2.0) mmol/L Alkaline Phosphatase (38-126) U/L Troponin I 0.062 H* (0.000-0.034) ng/mL Albumin (3.5-5.0) g/dL Procalcitonin (0.02-0.09) ng/mL Urine Appearance (Clear) Urine Protein (Negative) Urine Blood (Negative) Ur Leukocyte Esterase (Negative) Urine RBC (0-5) /hpf Urine WBC (0-5) /hpf Urine WBC Clumps (None) /hpf Ur Squamous Epith Cells (0-4) /hpf Urine Bacteria (None) /hpf Hyaline Casts (0-2) /lpf Urine Mucus (None) /hpf Stool Occult Blood (Negative) 08/17/21 08/17/21 08/17/21 Range/Units 01:41 04:45 04:45 WBC (3.8-10.6) k/uL RBC (3.80-5.40) m/uL Hgb (11.4-16.0) gm/dL Hct (34.0-46.0) % MCV (80.0-100.0) fL MCHC (31.0-37.0) g/dL RDW (11.5-15.5) % Neutrophils # (1.3-7.7) k/uL Monocytes # (0-1.0) k/uL APTT (22.0-30.0) sec ABG pCO2 (35-45) mmHg ABG pO2 (83-108) mmHg ABG HCO3 (21-25) mmol/L ABG Total CO2 (19-24) mmol/L ABG O2 Saturation (94-97) % Potassium (3.5-5.1) mmol/L Chloride (98-107) mmol/L Carbon Dioxide (22-30) mmol/L BUN (7-17) mg/dL Creatinine (0.52-1.04) mg/dL Glucose (74-99) mg/dL POC Glucose (mg/dL) (75-99) mg/dL Plasma Lactic Acid Jeff 3.4 H* (0.7-2.0) mmol/L Alkaline Phosphatase (38-126) U/L Troponin I 0.059 H* (0.000-0.034) ng/mL Albumin (3.5-5.0) g/dL Procalcitonin 1.50 H (0.02-0.09) ng/mL Urine Appearance (Clear) Urine Protein (Negative) Urine Blood (Negative) Ur Leukocyte Esterase (Negative) Urine RBC (0-5) /hpf Urine WBC (0-5) /hpf Urine WBC Clumps (None) /hpf Ur Squamous Epith Cells (0-4) /hpf Urine Bacteria (None) /hpf Hyaline Casts (0-2) /lpf Urine Mucus (None) /hpf Stool Occult Blood (Negative) 08/17/21 08/17/21 08/17/21 Range/Units 05:12 07:53 07:53 WBC 26.6 H (3.8-10.6) k/uL RBC 2.78 L (3.80-5.40) m/uL Hgb 8.7 L (11.4-16.0) gm/dL Hct 29.0 L (34.0-46.0) % MCV 104.2 H (80.0-100.0) fL MCHC 30.0 L (31.0-37.0) g/dL RDW 16.7 H (11.5-15.5) % Neutrophils # 23.1 H (1.3-7.7) k/uL Monocytes # 1.6 H (0-1.0) k/uL APTT (22.0-30.0) sec ABG pCO2 16 L* (35-45) mmHg ABG pO2 229 H (83-108) mmHg ABG HCO3 11 L (21-25) mmol/L ABG Total CO2 11 L (19-24) mmol/L ABG O2 Saturation 100.0 H (94-97) % Potassium (3.5-5.1) mmol/L Chloride (98-107) mmol/L Carbon Dioxide (22-30) mmol/L BUN (7-17) mg/dL Creatinine (0.52-1.04) mg/dL Glucose (74-99) mg/dL POC Glucose (mg/dL) (75-99) mg/dL Plasma Lactic Acid Jeff (0.7-2.0) mmol/L Alkaline Phosphatase (38-126) U/L Troponin I 0.054 H* (0.000-0.034) ng/mL Albumin (3.5-5.0) g/dL Procalcitonin (0.02-0.09) ng/mL Urine Appearance (Clear) Urine Protein (Negative) Urine Blood (Negative) Ur Leukocyte Esterase (Negative) Urine RBC (0-5) /hpf Urine WBC (0-5) /hpf Urine WBC Clumps (None) /hpf Ur Squamous Epith Cells (0-4) /hpf Urine Bacteria (None) /hpf Hyaline Casts (0-2) /lpf Urine Mucus (None) /hpf Stool Occult Blood (Negative) 08/17/21 08/17/21 08/17/21 Range/Units 07:53 07:53 08:58 WBC (3.8-10.6) k/uL RBC (3.80-5.40) m/uL Hgb (11.4-16.0) gm/dL Hct (34.0-46.0) % MCV (80.0-100.0) fL MCHC (31.0-37.0) g/dL RDW (11.5-15.5) % Neutrophils # (1.3-7.7) k/uL Monocytes # (0-1.0) k/uL APTT 20.7 L (22.0-30.0) sec ABG pCO2 (35-45) mmHg ABG pO2 (83-108) mmHg ABG HCO3 (21-25) mmol/L ABG Total CO2 (19-24) mmol/L ABG O2 Saturation (94-97) % Potassium 5.3 H (3.5-5.1) mmol/L Chloride 112 H (98-107) mmol/L Carbon Dioxide 11 L (22-30) mmol/L BUN 62 H (7-17) mg/dL Creatinine 4.49 H (0.52-1.04) mg/dL Glucose 167 H (74-99) mg/dL POC Glucose (mg/dL) 170 H (75-99) mg/dL Plasma Lactic Acid Jeff (0.7-2.0) mmol/L Alkaline Phosphatase (38-126) U/L Troponin I (0.000-0.034) ng/mL Albumin (3.5-5.0) g/dL Procalcitonin (0.02-0.09) ng/mL Urine Appearance (Clear) Urine Protein (Negative) Urine Blood (Negative) Ur Leukocyte Esterase (Negative) Urine RBC (0-5) /hpf Urine WBC (0-5) /hpf Urine WBC Clumps (None) /hpf Ur Squamous Epith Cells (0-4) /hpf Urine Bacteria (None) /hpf Hyaline Casts (0-2) /lpf Urine Mucus (None) /hpf Stool Occult Blood (Negative) 08/17/21 08/17/21 08/17/21 Range/Units 11:00 12:55 13:00 WBC 26.7 H (3.8-10.6) k/uL RBC 2.54 L (3.80-5.40) m/uL Hgb 7.7 L (11.4-16.0) gm/dL Hct 25.7 L (34.0-46.0) % MCV 101.1 H (80.0-100.0) fL MCHC 30.1 L (31.0-37.0) g/dL RDW 17.2 H (11.5-15.5) % Neutrophils # (1.3-7.7) k/uL Monocytes # (0-1.0) k/uL APTT (22.0-30.0) sec ABG pCO2 (35-45) mmHg ABG pO2 (83-108) mmHg ABG HCO3 (21-25) mmol/L ABG Total CO2 (19-24) mmol/L ABG O2 Saturation (94-97) % Potassium (3.5-5.1) mmol/L Chloride (98-107) mmol/L Carbon Dioxide (22-30) mmol/L BUN (7-17) mg/dL Creatinine (0.52-1.04) mg/dL Glucose (74-99) mg/dL POC Glucose (mg/dL) (75-99) mg/dL Plasma Lactic Acid Jeff (0.7-2.0) mmol/L Alkaline Phosphatase (38-126) U/L Troponin I (0.000-0.034) ng/mL Albumin (3.5-5.0) g/dL Procalcitonin (0.02-0.09) ng/mL Urine Appearance Turbid H (Clear) Urine Protein 2+ H (Negative) Urine Blood Small H (Negative) Ur Leukocyte Esterase Large H (Negative) Urine RBC 10 H (0-5) /hpf Urine WBC 75 H (0-5) /hpf Urine WBC Clumps Many H (None) /hpf Ur Squamous Epith Cells 12 H (0-4) /hpf Urine Bacteria Many H (None) /hpf Hyaline Casts 11 H (0-2) /lpf Urine Mucus Rare H (None) /hpf Stool Occult Blood Positive H (Negative) CT scan - abdomen: report reviewed CT scan - chest: report reviewed CT scan - pelvis: report reviewed Venous US: report reviewed Assessment and Plan (1) DVT (deep venous thrombosis) Narrative/Plan: New Acute Extensive DVT - Unable to assess PE with COntrasted CT due to renal function - Assess for Antiphospholipid syndrome prior to AC determination since recent COVID infection Current Visit: Yes Status: Acute Code(s): I82.409 - ACUTE EMBOLISM AND THOMBOS UNSP DEEP VN UNSP LOWER EXTREMITY SNOMED Code(s): 626727594 (2) MGUS (monoclonal gammopathy of unknown significance) Current Visit: Yes Status: Acute Code(s): D47.2 - MONOCLONAL GAMMOPATHY SN OMED Code(s): 411759778 (3) Normocytic anemia Current Visit: Yes Status: Acute Code(s): D64.9 - ANEMIA, UNSPECIFIED SNOMED Code(s): 201385009 (4) Acute abdominal pain Current Visit: No Status: Acute Code(s): R10.9 - UNSPECIFIED ABDOMINAL PAIN SNOMED Code(s): 657188432 (5) Leukocytosis Current Visit: No Status: Acute Code(s): D72.829 - ELEVATED WHITE BLOOD CELL COUNT, UNSPECIFIED SNOMED Code(s): 551069247 (6) Stage 3 chronic kidney disease due to benign hypertension Current Visit: No Status: Acute Code(s): I12.9 - HYPERTENSIVE CHRONIC KIDNEY DISEASE W STG 1-4/UNSP CHR KDNY; N18.30 - CHRONIC KIDNEY DISEASE, STAGE 3 UNSPECIFIED SNOMED Code(s): 803136480323908 (7) Hypotension Narrative/Plan: Septic work-up and Acute care per ER Current Visit: Yes Status: Acute Code(s): I95.9 - HYPOTENSION, UNSPECIFIED SNOMED Code(s): 12060990 (8) Acute kidney injury Narrative/Plan: Nephrology following Current Visit: Yes Status: Acute Code(s): N17.9 - ACUTE KIDNEY FAILURE, UNSPECIFIED SNOMED Code(s): 92358776 (9) Altered mental status Current Visit: Yes Status: Acute Code(s): R41.82 - ALTERED MENTAL STATUS, UNSPECIFIED SNOMED Code(s): 779181801 (10) Macrocytosis Current Visit: Yes Status: Acute Code(s): D75.89 - OTHER SPECIFIED DISEASES OF BLOOD AND BLOOD-FORMING ORGANS SNOMED Code(s): 459150290 Plan: Full Consult will follow tomorrow At this time will repeat MGUS panel and Antiphospholipid Syndrome labs, if positive will need warfarin versus DOAC choice for anticoagulation due to evidence in literature. Also need to check for renal thrombosis if APL Syndrome picture going Another Consideration is if this is if this is a post COVID Antiphospholipid syndrome then consideration to microvascular clotting systemically including brain is possible and would be considered an emergent need for plasmapheresis, however these labs have been ordered and currently working on stabilizing patient while performing all initial work-up. Continue to monitor and continuing aggressive acute care per other services.
[2021-08-17] MEDS ORDERED: DEXTROSE 5% IN WATER 100 ML with AMIODARONE 150 MG IV ONE (15:30)
[2021-08-17] MEDS ORDERED: AMIODARONE 360 MG in DEXTROSE 5% IN WATER 200 ML IV ONE ×2 (15:40)
[2021-08-17 16:21] LABS: Anisocytosis Slight; HCT 26.3 % (34.0-46.0); Hypochromasia Marked; MCH 31.7 pg (25.0-35.0); MCHC 30.2 g/dL (31.0-37.0); MCV 104.7 fL (80.0-100.0); Macrocytosis Moderate; Mean Platelet Volume 9.9; Platelet Count 224 k/uL (150-450); RBC 2.51 m/uL (3.80-5.40); RDW 17.1 % (11.5-15.5); WBC 26.8 k/uL (3.8-10.6)
[2021-08-17 16:22] LABS: Reticulocyte % 6.5 % (0.5-2.0)
--- NOTE | 2021-08-17 16:52 | NM ---
EXAMINATION TYPE: NM pul perfusion DATE OF EXAM: 08/17/2021 COMPARISON: NONE HISTORY: Altered mental status. Short of breath. Following administration of 5.0 mCi Tc 99m MAA. Images obtained post injection. FINDINGS: There is a small subsegmental perfusion defect at the right posterior lung base in the posterior basa l segment. There is mild linear defect along the left major fissure. There is no segmental type defec t. The remainder of exam is unremarkable. IMPRESSION: Small perfusion defects correspond to low probability of pulmonary embolism.
[2021-08-17 16:58] LABS: Glucose,Whole Blood 138 mg/dL (75-99)
[2021-08-17 16:58] LABS: ABG Base Excess -14.7 mmol/L; ABG HCO3 12 mmol/L (21-25); ABG Oxygen Saturation 99.3 % (94-97); ABG PCO2 22 mmHg (35-45); ABG PH 7.32 (7.35-7.45); ABG PO2 135 mmHg (83-108); ABG TCO2 12 mmol/L (19-24); Allen Test Performed? Yes
[2021-08-17 17:30] LABS: Erythrocyte Sedimentation Rate 48 mm/hr (0-20)
[2021-08-17] MEDS ORDERED: AMIODARONE IN DEXTROSE,ISO-OSM 150 MG/100 ML PLAST..BAG IV ONE (17:47)
[2021-08-17] MEDS ORDERED: AMIODARONE IN DEXTROSE,ISO-OSM 360 MG/200 ML PLAST..BAG IV ONE (17:47)
[2021-08-17 20:13] LABS: Glucose,Whole Blood 161 mg/dL (75-99)
[2021-08-17] MEDS: PRAVASTATIN SODIUM 40 MG TAB PO SCH (22:04)
[2021-08-17] MEDS: NOREPINEPHRINE 4 MG in SODIUM CHLORIDE 0.9% 250 ML IV SCH (22:35)
[2021-08-17 22:49] LABS: Protein, Total 5.8 g/dL (6.2-8.2)
[2021-08-17 22:58] LABS: Anisocytosis Slight; HCT 26.4 % (34.0-46.0); HGB 7.8 gm/dL (11.4-16.0); Hypochromasia Marked; MCH 30.8 pg (25.0-35.0); MCHC 29.4 g/dL (31.0-37.0); MCV 104.7 fL (80.0-100.0); Macrocytosis Moderate; Mean Platelet Volume 9.8; Platelet Count 199 k/uL (150-450); RBC 2.52 m/uL (3.80-5.40); RDW 17.2 % (11.5-15.5)
[2021-08-17 23:08] LABS: % Iron Saturation 8.41 (12.00-45.00); Folate, Serum 4.7 ng/mL (4.40-31.00)
[2021-08-18 03:13] LABS: Anisocytosis Slight; HCT 23.4 % (34.0-46.0); HGB 7.3 gm/dL (11.4-16.0); Hypochromasia Marked; MCH 31.4 pg (25.0-35.0); MCHC 31.1 g/dL (31.0-37.0); MCV 100.9 fL (80.0-100.0); Macrocytosis Moderate; Platelet Count 250 k/uL (150-450); RBC 2.32 m/uL (3.80-5.40); RDW 17.4 % (11.5-15.5)
[2021-08-18] MEDS ORDERED: LEVOFLOXACIN 750MG-D5W PMX 750 MG in DEXTROSE/WATER 1 150ML.BAG IVPB SCH (04:00)
[2021-08-18] MEDS ORDERED: NALOXONE 0.4 MG/ML 1 ML VIAL IV PRN (04:01)
[2021-08-18 04:07] LABS: Glucose,Whole Blood 260 mg/dL (75-99)
[2021-08-18] MEDS: HEPARIN SOD,PORK IN 0.45% NACL 25,000 UNIT in 0.45% NACL 1 250ML.BAG IV SCH ×2 (04:56→15:58)
[2021-08-18] MEDS ORDERED: PIPERACILLIN-TAZOBACTAM 3.375 GM in SODIUM CHLORIDE 0.9% 100 ML IVPB SCH (05:00)
[2021-08-18 06:02] LABS: Appearance,Urine Cloudy (Clear); Bacteria,Urine Moderate /hpf; Bilirubin,Urine Negative (Negative); Blood,Urine Small (Negative); Color,Urine Light Yellow; Glucose,Urine (UA) 2+ (Negative); Ketones,Urine Negative (Negative); Leukocyte Esterase,Urine Large (Negative); Mucus,Urine Rare /hpf; Nitrite,Urine Negative (Negative); Protein,Urine 1+ (Negative); RBC,Urine 9 /hpf (0-5); Specific Gravity,Urine 1.012 (1.001-1.035); Squamous Epithelial Cell,Urine 10 /hpf (0-4); Urobilinogen,Urine <2.0 mg/dL (<2.0); WBC,Urine 56 /hpf (0-5)
[2021-08-18 06:49] LABS: Calcium 7.8 mg/dL (8.4-10.2); Magnesium 1.4 mg/dL (1.6-2.3); Potassium 4.8 mmol/L (3.5-5.1)
[2021-08-18] MEDS: DEXTROSE 5% IN WATER 1,000 ML with SODIUM BICARB (1 MEQ/ML) 150 ML IV SCH ×2 (06:53→21:20)
[2021-08-18] MEDS: NOREPINEPHRINE 4 MG in SODIUM CHLORIDE 0.9% 250 ML IV SCH ×2 (06:56→19:00)
[2021-08-18 07:11] LABS: Glucose,Whole Blood 274 mg/dL (75-99)
[2021-08-18 07:12] LABS: Anisocytosis Slight; Basophils # (A) 0.1 k/uL (0-0.2); Basophils % (A) 0 %; Eosinophils # (A) 0.1 k/uL (0-0.7); Eosinophils % (A) 0 %; HGB 7.7 gm/dL (11.4-16.0); Hypochromasia Marked; Lymphocytes % (A) 5 %; MCH 31.4 pg (25.0-35.0); MCHC 29.7 g/dL (31.0-37.0); MCV 105.6 fL (80.0-100.0); Macrocytosis Moderate; Mean Platelet Volume 9.5; Monocytes # (A) 1.3 k/uL (0-1.0); Monocytes % (A) 6 %; Neutrophils # (A) 18.8 k/uL (1.3-7.7); Neutrophils % (A) 88 %; Platelet Count 219 k/uL (150-450); RBC 2.46 m/uL (3.80-5.40); RDW 16.8 % (11.5-15.5); WBC 21.5 k/uL (3.8-10.6)
[2021-08-18 07:28] LABS: Partial Thromboplastin Time 22.4 sec (22.0-30.0)
[2021-08-18] MEDS: ONDANSETRON 4 MG/2 ML VIAL IVP PRN (08:01)
[2021-08-18] MEDS: INSULIN ASPART (NovoLOG) 100 UNIT/ML VIAL SQ SCH ×5 (08:01→21:21)
[2021-08-18] MEDS: FAMOTIDINE 20 MG/2 ML VIAL IV SCH (08:02)
[2021-08-18 08:14] LABS: Crenated RBC Present; Poikilocytosis (M) Present
[2021-08-18] MEDS ORDERED: SODIUM BICARB 8.4% 50 ML SYR (1 MEQ/ML) IV STA (09:32)
--- NOTE | 2021-08-18 09:33 | P.PN ---
Subjective Patient is seen in follow-up for acute kidney injury on chronic kidney disease. Renal function slowly improving. More awake and alert today. On room air. Currently on amiodarone drip. On vasopressor support. Receiving IV fluids. Nonoliguric. Vital signs are stable - on vasopressor support. In A. fib. HEENT: Head exam is unremarkable. LUNGS:Breath sounds decreased. HEART: Irregular rate and rhythm. ABDOMEN: Soft, no distention. EXTREMITITES: No edema. Objective - Vital Signs Vital signs: Vital Signs Temp 98.3 F 08/18/21 08:00 Pulse 108 H 08/18/21 08:00 Resp 18 08/18/21 08:00 BP 95/64 08/18/21 08:00 Pulse Ox 98 08/18/21 08:00 Intake & Output 08/17/21 08/18/21 08/18/21 18:59 06:59 18:59 Intake Total 146.283 635.826 216 Output Total 1410 70 Balance 146.283 -774.174 146 Intake: IV 348 216 Amiodarone 450 mg In 48 16 Dextrose 5% in Water 250 ml @ 0.5 MG/MIN 16.667 mls/hr IV .Q15H STEPHANIE Rx#: [id number] Dextrose 5% in Water 1, 300 200 000 ml @ 100 mls/hr IV . [id number] STEPHANIE with Sodium Bicarb (1 Meq/ml) 150 ml Rx#:[id number] Intake, IV Titration 146.283 287.826 0 Amount Diltiazem 125 mg In 104.833 Sodium Chloride 0.9% 100 ml @ 5 MG/HR 5 mls/hr IV .Q24H STEPHANIE Rx#:[id number] Heparin Sod,Pork in 0.45% 146.283 0 NaCl 25,000 unit In 0.45 % NaCl 1 250ml.bag @ 18 UNITS/KG/HR 17.554 mls/hr IV .[id number] STEPHANIE Rx#: [id number] Norepinephrine 4 mg In 182.993 Sodium Chloride 0.9% 250 ml @ 0.05 MCG/KG/MIN 18. 578 mls/hr IV .[id number] STEPHANIE Rx#:[id number] Output: Urine 1360 70 Stool 50 Other: Voiding Method Indwelling Catheter - Labs CBC & Chem 7: 08/18/21 05:48 08/18/21 05:48 Labs: Abnormal Lab Results - Last 24 Hours (Table) 08/17/21 08/17/21 08/17/21 Range/Units 01:41 07:53 11:00 WBC (3.8-10.6) k/uL RBC (3.80-5.40) m/uL Hgb (11.4-16.0) gm/dL Hct (34.0-46.0) % MCV (80.0-100.0) fL MCHC (31.0-37.0) g/dL RDW (11.5-15.5) % Neutrophils # (1.3-7.7) k/uL Monocytes # (0-1.0) k/uL ESR (0-20) mm/hr Retic Count (0.5-2.0) % APTT (22.0-30.0) sec ABG pH (7.35-7.45) ABG pCO2 (35-45) mmHg ABG pO2 (83-108) mmHg ABG HCO3 (21-25) mmol/L ABG Total CO2 (19-24) mmol/L ABG O2 Saturation (94-97) % Potassium 5.3 H (3.5-5.1) mmol/L Chloride 112 H (98-107) mmol/L Carbon Dioxide 11 L (22-30) mmol/L BUN 62 H (7-17) mg/dL Creatinine 4.49 H (0.52-1.04) mg/dL Glucose 167 H (74-99) mg/dL POC Glucose (mg/dL) (75-99) mg/dL Calcium (8.4-10.2) mg/dL Magnesium (1.6-2.3) mg/dL Iron (50-170) ug/dL TIBC (228-460) ug/dL % Saturation (12.00-45.00) Transferrin (204.0-354.0) mg/dL Ferritin (10.0-291.0) ng/mL Lactate Dehydrogenase (313-618) U/L Total Protein (PEP) (6.2-8.2) g/dL Procalcitonin 1.50 H (0.02-0.09) ng/mL Urine Appearance Turbid H (Clear) Urine Protein 2+ H (Negative) Urine Glucose (UA) (Negative) Urine Blood Small H (Negative) Ur Leukocyte Esterase Large H (Negative) Urine RBC 10 H (0-5) /hpf Urine WBC 75 H (0-5) /hpf Urine WBC Clumps Many H (None) /hpf Ur Squamous Epith Cells 12 H (0-4) /hpf Urine Bacteria Many H (None) /hpf Hyaline Casts 11 H (0-2) /lpf Urine Mucus Rare H (None) /hpf Stool Occult Blood (Negative) IgA (60.0-350.0) mg/dL 08/17/21 08/17/21 08/17/21 Range/Units 12:55 13:00 14:23 WBC 26.7 H (3.8-10.6) k/uL RBC 2.54 L (3.80-5.40) m/uL Hgb 7.7 L (11.4-16.0) gm/dL Hct 25.7 L (34.0-46.0) % MCV 101.1 H (80.0-100.0) fL MCHC 30.1 L (31.0-37.0) g/dL RDW 17.2 H (11.5-15.5) % Neutrophils # (1.3-7.7) k/uL Monocytes # (0-1.0) k/uL ESR (0-20) mm/hr Retic Count 6.5 H (0.5-2.0) % APTT (22.0-30.0) sec ABG pH (7.35-7.45) ABG pCO2 (35-45) mmHg ABG pO2 (83-108) mmHg ABG HCO3 (21-25) mmol/L ABG Total CO2 (19-24) mmol/L ABG O2 Saturation (94-97) % Potassium (3.5-5.1) mmol/L Chloride (98-107) mmol/L Carbon Dioxide (22-30) mmol/L BUN (7-17) mg/dL Creatinine (0.52-1.04) mg/dL Glucose (74-99) mg/dL POC Glucose (mg/dL) (75-99) mg/dL Calcium (8.4-10.2) mg/dL Magnesium (1.6-2.3) mg/dL Iron (50-170) ug/dL TIBC (228-460) ug/dL % Saturation (12.00-45.00) Transferrin (204.0-354.0) mg/dL Ferritin (10.0-291.0) ng/mL Lactate Dehydrogenase (313-618) U/L Total Protein (PEP) (6.2-8.2) g/dL Procalcitonin (0.02-0.09) ng/mL Urine Appearance (Clear) Urine Protein (Negative) Urine Glucose (UA) (Negative) Urine Blood (Negative) Ur Leukocyte Esterase (Negative) Urine RBC (0-5) /hpf Urine WBC (0-5) /hpf Urine WBC Clumps (None) /hpf Ur Squamous Epith Cells (0-4) /hpf Urine Bacteria (None) /hpf Hyaline Casts (0-2) /lpf Urine Mucus (None) /hpf Stool Occult Blood Positive H (Negative) IgA (60.0-350.0) mg/dL 08/17/21 08/17/21 08/17/21 Range/Units 14:23 14:23 14:23 WBC (3.8-10.6) k/uL RBC (3.80-5.40) m/uL Hgb (11.4-16.0) gm/dL Hct (34.0-46.0) % MCV (80.0-100.0) fL MCHC (31.0-37.0) g/dL RDW (11.5-15.5) % Neutrophils # (1.3-7.7) k/uL Monocytes # (0-1.0) k/uL ESR (0-20) mm/hr Retic Count (0.5-2.0) % APTT (22.0-30.0) sec ABG pH (7.35-7.45) ABG pCO2 (35-45) mmHg ABG pO2 (83-108) mmHg ABG HCO3 (21-25) mmol/L ABG Total CO2 (19-24) mmol/L ABG O2 Saturation (94-97) % Potassium (3.5-5.1) mmol/L Chloride (98-107) mmol/L Carbon Dioxide (22-30) mmol/L BUN (7-17) mg/dL Creatinine (0.52-1.04) mg/dL Glucose (74-99) mg/dL POC Glucose (mg/dL) (75-99) mg/dL Calcium (8.4-10.2) mg/dL Magnesium (1.6-2.3) mg/dL Iron 17 L (50-170) ug/dL TIBC 206 L (228-460) ug/dL % Saturation 8.41 L (12.00-45.00) Transferrin 147.0 L (204.0-354.0) mg/dL Ferritin 394.0 H (10.0-291.0) ng/mL Lactate Dehydrogenase 1002 H (313-618) U/L Total Protein (PEP) 5.8 L (6.2-8.2) g/dL Procalcitonin (0.02-0.09) ng/mL Urine Appearance (Clear) Urine Protein (Negative) Urine Glucose (UA) (Negative) Urine Blood (Negative) Ur Leukocyte Esterase (Negative) Urine RBC (0-5) /hpf Urine WBC (0-5) /hpf Urine WBC Clumps (None) /hpf Ur Squamous Epith Cells (0-4) /hpf Urine Bacteria (None) /hpf Hyaline Casts (0-2) /lpf Urine Mucus (None) /hpf Stool Occult Blood (Negative) IgA 655.0 H (60.0-350.0) mg/dL 08/17/21 08/17/21 08/17/21 Range/Units 15:21 15:21 16:54 WBC 26.8 H (3.8-10.6) k/uL RBC 2.51 L (3.80-5.40) m/uL Hgb 8.0 L (11.4-16.0) gm/dL Hct 26.3 L (34.0-46.0) % MCV 104.7 H (80.0-100.0) fL MCHC 30.2 L (31.0-37.0) g/dL RDW 17.1 H (11.5-15.5) % Neutrophils # (1.3-7.7) k/uL Monocytes # (0-1.0) k/uL ESR 48 H (0-20) mm/hr Retic Count (0.5-2.0) % APTT >200.0 H* (22.0-30.0) sec ABG pH 7.32 L (7.35-7.45) ABG pCO2 22 L (35-45) mmHg ABG pO2 135 H (83-108) mmHg ABG HCO3 12 L (21-25) mmol/L ABG Total CO2 12 L (19-24) mmol/L ABG O2 Saturation 99.3 H (94-97) % Potassium (3.5-5.1) mmol/L Chloride (98-107) mmol/L Carbon Dioxide (22-30) mmol/L BUN (7-17) mg/dL Creatinine (0.52-1.04) mg/dL Glucose (74-99) mg/dL POC Glucose (mg/dL) (75-99) mg/dL Calcium (8.4-10.2) mg/dL Magnesium (1.6-2.3) mg/dL Iron (50-170) ug/dL TIBC (228-460) ug/dL % Saturation (12.00-45.00) Transferrin (204.0-354.0) mg/dL Ferritin (10.0-291.0) ng/mL Lactate Dehydrogenase (313-618) U/L Total Protein (PEP) (6.2-8.2) g/dL Procalcitonin (0.02-0.09) ng/mL Urine Appearance (Clear) Urine Protein (Negative) Urine Glucose (UA) (Negative) Urine Blood (Negative) Ur Leukocyte Esterase (Negative) Urine RBC (0-5) /hpf Urine WBC (0-5) /hpf Urine WBC Clumps (None) /hpf Ur Squamous Epith Cells (0-4) /hpf Urine Bacteria (None) /hpf Hyaline Casts (0-2) /lpf Urine Mucus (None) /hpf Stool Occult Blood (Negative) IgA (60.0-350.0) mg/dL 08/17/21 08/17/21 08/17/21 Range/Units 16:57 20:12 22:09 WBC 23.0 H (3.8-10.6) k/uL RBC 2.52 L (3.80-5.40) m/uL Hgb 7.8 L (11.4-16.0) gm/dL Hct 26.4 L (34.0-46.0) % MCV 104.7 H (80.0-100.0) fL MCHC 29.4 L (31.0-37.0) g/dL RDW 17.2 H (11.5-15.5) % Neutrophils # (1.3-7.7) k/uL Monocytes # (0-1.0) k/uL ESR (0-20) mm/hr Retic Count (0.5-2.0) % APTT (22.0-30.0) sec ABG pH (7.35-7.45) ABG pCO2 (35-45) mmHg ABG pO2 (83-108) mmHg ABG HCO3 (21-25) mmol/L ABG Total CO2 (19-24) mmol/L ABG O2 Saturation (94-97) % Potassium (3.5-5.1) mmol/L Chloride (98-107) mmol/L Carbon Dioxide (22-30) mmol/L BUN (7-17) mg/dL Creatinine (0.52-1.04) mg/dL Glucose (74-99) mg/dL POC Glucose (mg/dL) 138 H 161 H (75-99) mg/dL Calcium (8.4-10.2) mg/dL Magnesium (1.6-2.3) mg/dL Iron (50-170) ug/dL TIBC (228-460) ug/dL % Saturation (12.00-45.00) Transferrin (204.0-354.0) mg/dL Ferritin (10.0-291.0) ng/mL Lactate Dehydrogenase (313-618) U/L Total Protein (PEP) (6.2-8.2) g/dL Procalcitonin (0.02-0.09) ng/mL Urine Appearance (Clear) Urine Protein (Negative) Urine Glucose (UA) (Negative) Urine Blood (Negative) Ur Leukocyte Esterase (Negative) Urine RBC (0-5) /hpf Urine WBC (0-5) /hpf Urine WBC Clumps (None) /hpf Ur Squamous Epith Cells (0-4) /hpf Urine Bacteria (None) /hpf Hyaline Casts (0-2) /lpf Urine Mucus (None) /hpf Stool Occult Blood (Negative) IgA (60.0-350.0) mg/dL 08/18/21 08/18/21 08/18/21 Range/Units 03:06 03:56 05:30 WBC 22.0 H (3.8-10.6) k/uL RBC 2.32 L (3.80-5.40) m/uL Hgb 7.3 L (11.4-16.0) gm/dL Hct 23.4 L (34.0-46.0) % MCV 100.9 H (80.0-100.0) fL MCHC (31.0-37.0) g/dL RDW 17.4 H (11.5-15.5) % Neutrophils # (1.3-7.7) k/uL Monocytes # (0-1.0) k/uL ESR (0-20) mm/hr Retic Count (0.5-2.0) % APTT (22.0-30.0) sec ABG pH (7.35-7.45) ABG pCO2 (35-45) mmHg ABG pO2 (83-108) mmHg ABG HCO3 (21-25) mmol/L ABG Total CO2 (19-24) mmol/L ABG O2 Saturation (94-97) % Potassium (3.5-5.1) mmol/L Chloride (98-107) mmol/L Carbon Dioxide (22-30) mmol/L BUN (7-17) mg/dL Creatinine (0.52-1.04) mg/dL Glucose (74-99) mg/dL POC Glucose (mg/dL) 260 H (75-99) mg/dL Calcium (8.4-10.2) mg/dL Magnesium (1.6-2.3) mg/dL Iron (50-170) ug/dL TIBC (228-460) ug/dL % Saturation (12.00-45.00) Transferrin (204.0-354.0) mg/dL Ferritin (10.0-291.0) ng/mL Lactate Dehydrogenase (313-618) U/L Total Protein (PEP) (6.2-8.2) g/dL Procalcitonin (0.02-0.09) ng/mL Urine Appearance Cloudy H (Clear) Urine Protein 1+ H (Negative) Urine Glucose (UA) 2+ H (Negative) Urine Blood Small H (Negative) Ur Leukocyte Esterase Large H (Negative) Urine RBC 9 H (0-5) /hpf Urine WBC 56 H (0-5) /hpf Urine WBC Clumps (None) /hpf Ur Squamous Epith Cells 10 H (0-4) /hpf Urine Bacteria Moderate H (None) /hpf Hyaline Casts (0-2) /lpf Urine Mucus Rare H (None) /hpf Stool Occult Blood (Negative) IgA (60.0-350.0) mg/dL 08/18/21 08/18/21 08/18/21 Range/Units 05:48 05:48 07:09 WBC 21.5 H (3.8-10.6) k/uL RBC 2.46 L (3.80-5.40) m/uL Hgb 7.7 L (11.4-16.0) gm/dL Hct 26.0 L (34.0-46.0) % MCV 105.6 H (80.0-100.0) fL MCHC 29.7 L (31.0-37.0) g/dL RDW 16.8 H (11.5-15.5) % Neutrophils # 18.8 H (1.3-7.7) k/uL Monocytes # 1.3 H (0-1.0) k/uL ESR (0-20) mm/hr Retic Count (0.5-2.0) % APTT (22.0-30.0) sec ABG pH (7.35-7.45) ABG pCO2 (35-45) mmHg ABG pO2 (83-108) mmHg ABG HCO3 (21-25) mmol/L ABG Total CO2 (19-24) mmol/L ABG O2 Saturation (94-97) % Potassium (3.5-5.1) mmol/L Chloride 110 H (98-107) mmol/L Carbon Dioxide 11 L (22-30) mmol/L BUN 62 H (7-17) mg/dL Creatinine 4.25 H (0.52-1.04) mg/dL Glucose 268 H (74-99) mg/dL POC Glucose (mg/dL) 274 H (75-99) mg/dL Calcium 7.8 L (8.4-10.2) mg/dL Magnesium 1.4 L (1.6-2.3) mg/dL Iron (50-170) ug/dL TIBC (228-460) ug/dL % Saturation (12.00-45.00) Transferrin (204.0-354.0) mg/dL Ferritin (10.0-291.0) ng/mL Lactate Dehydrogenase (313-618) U/L Total Protein (PEP) (6.2-8.2) g/dL Procalcitonin (0.02-0.09) ng/mL Urine Appearance (Clear) Urine Protein (Negative) Urine Glucose (UA) (Negative) Urine Blood (Negative) Ur Leukocyte Esterase (Negative) Urine RBC (0-5) /hpf Urine WBC (0-5) /hpf Urine WBC Clumps (None) /hpf Ur Squamous Epith Cells (0-4) /hpf Urine Bacteria (None) /hpf Hyaline Casts (0-2) /lpf Urine Mucus (None) /hpf Stool Occult Blood (Negative) IgA (60.0-350.0) mg/dL Microbiology - Last 24 Hours (Table) 08/17/21 01:25 Blood Culture - Preliminary Blood No Growth after 24 hours 08/16/21 01:41 Blood Culture - Preliminary Blood No Growth after 24 hours 08/17/21 11:00 Urine Culture - Preliminary Urine,Voided Assessment and Plan Plan: Assessment: 1. Acute kidney injury mostly prerenal secondary to hypovolemia and hemodynamic instability. Creatinine 4.84 on admission - 4.25 today. No hydronephrosis noted on CAT scan. 2. Chronic kidney disease stage IIIa with baseline creatinine in the range of 1.3-1.5 secondary to diabetic kidney disease. 3. Left lower extremity DVT maintained on heparin drip. 4. A. fib with RVR maintained on amiodarone drip. 5. Metabolic acidosis secondary to acute kidney injury. 6. Diabetes mellitus. 7. Hypomagnesemia from poor intake. Plan: Maintain bicarb drip at 100 mL an hour. Avoid nephrotoxins. Follow-up echocardiogram. Follow-up cultures. Continue to monitor renal function and urine output. Wean Levophed. 2 A of sodium bicarb IV push now. Replace magnesium. 2 g IV today.
--- NOTE | 2021-08-18 11:21 | P.PN ---
<Marisa Martniez - Last Filed: 08/18/21 11:07> Subjective Progress Note Date: 08/18/21 CHIEF COMPLAINT: GI bleed HISTORY OF PRESENT ILLNESS: Patient admitted to the hospital with mental status changes. She's currently in the ICU. Patient also had 1 episode of coffee- ground emesis on admission. She has a DVT in the left lower extremity and IV heparin was restarted today. She also has new onset of atrial fibrillation. Patient had exploratory laparotomy with right colectomy and end ileostomy with mucous fistula and repair of umbilical hernia on 06/20/2021 for colonic obstruction with pneumatosis of the right colon and umbilical hernia. Patient is currently sitting up comfortably. She is confused. Denies any abdominal pain. She is also receiving IV iron. Ileostomy with very dark possibly black liquidy output. Her hemoglobin is 7.7 WBC 21.5 patient was on Eliquis in outpatient setting. PHYSICAL EXAM: VITAL SIGNS: Reviewed. GENERAL: Well-developed in no acute distress. HEENT: No sclera icterus. Extraocular movements grossly intact. Moist buccal mucosa. Head is atraumatic, normocephalic. ABDOMEN: Soft. Nondistended. Nontender. Ileostomy with dark liquidy output NEUROLOGIC: Awake. Confused. ASSESSMENT: 1. Acute GI bleed 2. Anemia 3. Pelvic mass 4. Altered mental status 5. DVT left leg PLAN: -Okay for IV heparin from surgical standpoint -Start full liquid diet -Continue to monitor closely for signs or symptoms of GI bleeding -Continue to monitor hemoglobin -Consult NOC ENGINEER service regarding pelvic mass that was noted on the flexible sigmoidoscopy that Dr. Bailey performed on 07/15/2021. Patient was supposed to follow-up with NOC ENGINEER service outpatient. -Continue PPI -Further recommendations forthcoming per surgeon Physician Nutrition Consultant note has been reviewed by physician. Signing provider agrees with the documented findings, assessment, and plan of care. Objective - Vital Signs Vital signs: Vital Signs Temp 98.3 F 08/18/21 08:00 Pulse 108 H 08/18/21 08:00 Resp 18 08/18/21 08:00 BP 95/64 08/18/21 08:00 Pulse Ox 98 08/18/21 08:00 Intake & Output 08/17/21 08/18/21 08/18/21 18:59 06:59 18:59 Intake Total 146.283 635.826 303.641 Output Total 1410 70 Balance 146.283 -774.174 233.641 Intake: IV 348 216 Amiodarone 450 mg In 48 16 Dextrose 5% in Water 250 ml @ 0.5 MG/MIN 16.667 mls/hr IV .Q15H [facility] Rx#: [id number] Dextrose 5% in Water 1, 300 200 000 ml @ 100 mls/hr IV . [id number] [facility] with Sodium Bicarb (1 Meq/ml) 150 ml Rx#:[id number] Intake, IV Titration 146.283 287.826 87.641 Amount Diltiazem 125 mg In 104.833 Sodium Chloride 0.9% 100 ml @ 5 MG/HR 5 mls/hr IV .Q24H [facility] Rx#:[id number] Heparin Sod,Pork in 0.45% 146.283 31.597 NaCl 25,000 unit In 0.45 % NaCl 1 250ml.bag @ 18 UNITS/KG/HR 17.554 mls/hr IV .[id number] [facility] Rx#: [id number] Norepinephrine 4 mg In 182.993 56.044 Sodium Chloride 0.9% 250 ml @ 0.05 MCG/KG/MIN 18. 578 mls/hr IV .[id number] [facility] Rx#:[id number] Output: Urine 1360 70 Stool 50 Other: Voiding Method Indwelling Catheter Indwelling Catheter - Labs CBC & Chem 7: 08/18/21 05:48 08/18/21 05:48 Labs: Abnormal Lab Results - Last 24 Hours (Table) 08/17/21 08/17/21 08/17/21 Range/Units 01:41 07:53 11:00 WBC (3.8-10.6) k/uL RBC (3.80-5.40) m/uL Hgb (11.4-16.0) gm/dL Hct (34.0-46.0) % MCV (80.0-100.0) fL MCHC (31.0-37.0) g/dL RDW (11.5-15.5) % Neutrophils # (1.3-7.7) k/uL Monocytes # (0-1.0) k/uL ESR (0-20) mm/hr Retic Count (0.5-2.0) % APTT (22.0-30.0) sec ABG pH (7.35-7.45) ABG pCO2 (35-45) mmHg ABG pO2 (83-108) mmHg ABG HCO3 (21-25) mmol/L ABG Total CO2 (19-24) mmol/L ABG O2 Saturation (94-97) % Potassium 5.3 H (3.5-5.1) mmol/L Chloride 112 H (98-107) mmol/L Carbon Dioxide 11 L (22-30) mmol/L BUN 62 H (7-17) mg/dL Creatinine 4.49 H (0.52-1.04) mg/dL Glucose 167 H (74-99) mg/dL POC Glucose (mg/dL) (75-99) mg/dL Calcium (8.4-10.2) mg/dL Magnesium (1.6-2.3) mg/dL Iron (50-170) ug/dL TIBC (228-460) ug/dL % Saturation (12.00-45.00) Transferrin (204.0-354.0) mg/dL Ferritin (10.0-291.0) ng/mL Lactate Dehydrogenase (313-618) U/L Total Protein (PEP) (6.2-8.2) g/dL Procalcitonin 1.50 H (0.02-0.09) ng/mL Urine Appearance Turbid H (Clear) Urine Protein 2+ H (Negative) Urine Glucose (UA) (Negative) Urine Blood Small H (Negative) Ur Leukocyte Esterase Large H (Negative) Urine RBC 10 H (0-5) /hpf Urine WBC 75 H (0-5) /hpf Urine WBC Clumps Many H (None) /hpf Ur Squamous Epith Cells 12 H (0-4) /hpf Urine Bacteria Many H (None) /hpf Hyaline Casts 11 H (0-2) /lpf Urine Mucus Rare H (None) /hpf Stool Occult Blood (Negative) IgA (60.0-350.0) mg/dL 08/17/21 08/17/21 08/17/21 Range/Units 12:55 13:00 14:23 WBC 26.7 H (3.8-10.6) k/uL RBC 2.54 L (3.80-5.40) m/uL Hgb 7.7 L (11.4-16.0) gm/dL Hct 25.7 L (34.0-46.0) % MCV 101.1 H (80.0-100.0) fL MCHC 30.1 L (31.0-37.0) g/dL RDW 17.2 H (11.5-15.5) % Neutrophils # (1.3-7.7) k/uL Monocytes # (0-1.0) k/uL ESR (0-20) mm/hr Retic Count 6.5 H (0.5-2.0) % APTT (22.0-30.0) sec ABG pH (7.35-7.45) ABG pCO2 (35-45) mmHg ABG pO2 (83-108) mmHg ABG HCO3 (21-25) mmol/L ABG Total CO2 (19-24) mmol/L ABG O2 Saturation (94-97) % Potassium (3.5-5.1) mmol/L Chloride (98-107) mmol/L Carbon Dioxide (22-30) mmol/L BUN (7-17) mg/dL Creatinine (0.52-1.04) mg/dL Glucose (74-99) mg/dL POC Glucose (mg/dL) (75-99) mg/dL Calcium (8.4-10.2) mg/dL Magnesium (1.6-2.3) mg/dL Iron (50-170) ug/dL TIBC (228-460) ug/dL % Saturation (12.00-45.00) Transferrin (204.0-354.0) mg/dL Ferritin (10.0-291.0) ng/mL Lactate Dehydrogenase (313-618) U/L Total Protein (PEP) (6.2-8.2) g/dL Procalcitonin (0.02-0.09) ng/mL Urine Appearance (Clear) Urine Protein (Negative) Urine Glucose (UA) (Negative) Urine Blood (Negative) Ur Leukocyte Esterase (Negative) Urine RBC (0-5) /hpf Urine WBC (0-5) /hpf Urine WBC Clumps (None) /hpf Ur Squamous Epith Cells (0-4) /hpf Urine Bacteria (None) /hpf Hyaline Casts (0-2) /lpf Urine Mucus (None) /hpf Stool Occult Blood Positive H (Negative) IgA (60.0-350.0) mg/dL 08/17/21 08/17/21 08/17/21 Range/Units 14:23 14:23 14:23 WBC (3.8-10.6) k/uL RBC (3.80-5.40) m/uL Hgb (11.4-16.0) gm/dL Hct (34.0-46.0) % MCV (80.0-100.0) fL MCHC (31.0-37.0) g/dL RDW (11.5-15.5) % Neutrophils # (1.3-7.7) k/uL Monocytes # (0-1.0) k/uL ESR (0-20) mm/hr Retic Count (0.5-2.0) % APTT (22.0-30.0) sec ABG pH (7.35-7.45) ABG pCO2 (35-45) mmHg ABG pO2 (83-108) mmHg ABG HCO3 (21-25) mmol/L ABG Total CO2 (19-24) mmol/L ABG O2 Saturation (94-97) % Potassium (3.5-5.1) mmol/L Chloride (98-107) mmol/L Carbon Dioxide (22-30) mmol/L BUN (7-17) mg/dL Creatinine (0.52-1.04) mg/dL Glucose (74-99) mg/dL POC Glucose (mg/dL) (75-99) mg/dL Calcium (8.4-10.2) mg/dL Magnesium (1.6-2.3) mg/dL Iron 17 L (50-170) ug/dL TIBC 206 L (228-460) ug/dL % Saturation 8.41 L (12.00-45.00) Transferrin 147.0 L (204.0-354.0) mg/dL Ferritin 394.0 H (10.0-291.0) ng/mL Lactate Dehydrogenase 1002 H (313-618) U/L Total Protein (PEP) 5.8 L (6.2-8.2) g/dL Procalcitonin (0.02-0.09) ng/mL Urine Appearance (Clear) Urine Protein (Negative) Urine Glucose (UA) (Negative) Urine Blood (Negative) Ur Leukocyte Esterase (Negative) Urine RBC (0-5) /hpf Urine WBC (0-5) /hpf Urine WBC Clumps (None) /hpf Ur Squamous Epith Cells (0-4) /hpf Urine Bacteria (None) /hpf Hyaline Casts (0-2) /lpf Urine Mucus (None) /hpf Stool Occult Blood (Negative) IgA 655.0 H (60.0-350.0) mg/dL 08/17/21 08/17/21 08/17/21 Range/Units 15:21 15:21 16:54 WBC 26.8 H (3.8-10.6) k/uL RBC 2.51 L (3.80-5.40) m/uL Hgb 8.0 L (11.4-16.0) gm/dL Hct 26.3 L (34.0-46.0) % MCV 104.7 H (80.0-100.0) fL MCHC 30.2 L (31.0-37.0) g/dL RDW 17.1 H (11.5-15.5) % Neutrophils # (1.3-7.7) k/uL Monocytes # (0-1.0) k/uL ESR 48 H (0-20) mm/hr Retic Count (0.5-2.0) % APTT >200.0 H* (22.0-30.0) sec ABG pH 7.32 L (7.35-7.45) ABG pCO2 22 L (35-45) mmHg ABG pO2 135 H (83-108) mmHg ABG HCO3 12 L (21-25) mmol/L ABG Total CO2 12 L (19-24) mmol/L ABG O2 Saturation 99.3 H (94-97) % Potassium (3.5-5.1) mmol/L Chloride (98-107) mmol/L Carbon Dioxide (22-30) mmol/L BUN (7-17) mg/dL Creatinine (0.52-1.04) mg/dL Glucose (74-99) mg/dL POC Glucose (mg/dL) (75-99) mg/dL Calcium (8.4-10.2) mg/dL Magnesium (1.6-2.3) mg/dL Iron (50-170) ug/dL TIBC (228-460) ug/dL % Saturation (12.00-45.00) Transferrin (204.0-354.0) mg/dL Ferritin (10.0-291.0) ng/mL Lactate Dehydrogenase (313-618) U/L Total Protein (PEP) (6.2-8.2) g/dL Procalcitonin (0.02-0.09) ng/mL Urine Appearance (Clear) Urine Protein (Negative) Urine Glucose (UA) (Negative) Urine Blood (Negative) Ur Leukocyte Esterase (Negative) Urine RBC (0-5) /hpf Urine WBC (0-5) /hpf Urine WBC Clumps (None) /hpf Ur Squamous Epith Cells (0-4) /hpf Urine Bacteria (None) /hpf Hyaline Casts (0-2) /lpf Urine Mucus (None) /hpf Stool Occult Blood (Negative) IgA (60.0-350.0) mg/dL 08/17/21 08/17/21 08/17/21 Range/Units 16:57 20:12 22:09 WBC 23.0 H (3.8-10.6) k/uL RBC 2.52 L (3.80-5.40) m/uL Hgb 7.8 L (11.4-16.0) gm/dL Hct 26.4 L (34.0-46.0) % MCV 104.7 H (80.0-100.0) fL MCHC 29.4 L (31.0-37.0) g/dL RDW 17.2 H (11.5-15.5) % Neutrophils # (1.3-7.7) k/uL Monocytes # (0-1.0) k/uL ESR (0-20) mm/hr Retic Count (0.5-2.0) % APTT (22.0-30.0) sec ABG pH (7.35-7.45) ABG pCO2 (35-45) mmHg ABG pO2 (83-108) mmHg ABG HCO3 (21-25) mmol/L ABG Total CO2 (19-24) mmol/L ABG O2 Saturation (94-97) % Potassium (3.5-5.1) mmol/L Chloride (98-107) mmol/L Carbon Dioxide (22-30) mmol/L BUN (7-17) mg/dL Creatinine (0.52-1.04) mg/dL Glucose (74-99) mg/dL POC Glucose (mg/dL) 138 H 161 H (75-99) mg/dL Calcium (8.4-10.2) mg/dL Magnesium (1.6-2.3) mg/dL Iron (50-170) ug/dL TIBC (228-460) ug/dL % Saturation (12.00-45.00) Transferrin (204.0-354.0) mg/dL Ferritin (10.0-291.0) ng/mL Lactate Dehydrogenase (313-618) U/L Total Protein (PEP) (6.2-8.2) g/dL Procalcitonin (0.02-0.09) ng/mL Urine Appearance (Clear) Urine Protein (Negative) Urine Glucose (UA) (Negative) Urine Blood (Negative) Ur Leukocyte Esterase (Negative) Urine RBC (0-5) /hpf Urine WBC (0-5) /hpf Urine WBC Clumps (None) /hpf Ur Squamous Epith Cells (0-4) /hpf Urine Bacteria (None) /hpf Hyaline Casts (0-2) /lpf Urine Mucus (None) /hpf Stool Occult Blood (Negative) IgA (60.0-350.0) mg/dL 08/18/21 08/18/21 08/18/21 Range/Units 03:06 03:56 05:30 WBC 22.0 H (3.8-10.6) k/uL RBC 2.32 L (3.80-5.40) m/uL Hgb 7.3 L (11.4-16.0) gm/dL Hct 23.4 L (34.0-46.0) % MCV 100.9 H (80.0-100.0) fL MCHC (31.0-37.0) g/dL RDW 17.4 H (11.5-15.5) % Neutrophils # (1.3-7.7) k/uL Monocytes # (0-1.0) k/uL ESR (0-20) mm/hr Retic Count (0.5-2.0) % APTT (22.0-30.0) sec ABG pH (7.35-7.45) ABG pCO2 (35-45) mmHg ABG pO2 (83-108) mmHg ABG HCO3 (21-25) mmol/L ABG Total CO2 (19-24) mmol/L ABG O2 Saturation (94-97) % Potassium (3.5-5.1) mmol/L Chloride (98-107) mmol/L Carbon Dioxide (22-30) mmol/L BUN (7-17) mg/dL Creatinine (0.52-1.04) mg/dL Glucose (74-99) mg/dL POC Glucose (mg/dL) 260 H (75-99) mg/dL Calcium (8.4-10.2) mg/dL Magnesium (1.6-2.3) mg/dL Iron (50-170) ug/dL TIBC (228-460) ug/dL % Saturation (12.00-45.00) Transferrin (204.0-354.0) mg/dL Ferritin (10.0-291.0) ng/mL Lactate Dehydrogenase (313-618) U/L Total Protein (PEP) (6.2-8.2) g/dL Procalcitonin (0.02-0.09) ng/mL Urine Appearance Cloudy H (Clear) Urine Protein 1+ H (Negative) Urine Glucose (UA) 2+ H (Negative) Urine Blood Small H (Negative) Ur Leukocyte Esterase Large H (Negative) Urine RBC 9 H (0-5) /hpf Urine WBC 56 H (0-5) /hpf Urine WBC Clumps (None) /hpf Ur Squamous Epith Cells 10 H (0-4) /hpf Urine Bacteria Moderate H (None) /hpf Hyaline Casts (0-2) /lpf Urine Mucus Rare H (None) /hpf Stool Occult Blood (Negative) IgA (60.0-350.0) mg/dL 08/18/21 08/18/21 08/18/21 Range/Units 05:48 05:48 07:09 WBC 21.5 H (3.8-10.6) k/uL RBC 2.46 L (3.80-5.40) m/uL Hgb 7.7 L (11.4-16.0) gm/dL Hct 26.0 L (34.0-46.0) % MCV 105.6 H (80.0-100.0) fL MCHC 29.7 L (31.0-37.0) g/dL RDW 16.8 H (11.5-15.5) % Neutrophils # 18.8 H (1.3-7.7) k/uL Monocytes # 1.3 H (0-1.0) k/uL ESR (0-20) mm/hr Retic Count (0.5-2.0) % APTT (22.0-30.0) sec ABG pH (7.35-7.45) ABG pCO2 (35-45) mmHg ABG pO2 (83-108) mmHg ABG HCO3 (21-25) mmol/L ABG Total CO2 (19-24) mmol/L ABG O2 Saturation (94-97) % Potassium (3.5-5.1) mmol/L Chloride 110 H (98-107) mmol/L Carbon Dioxide 11 L (22-30) mmol/L BUN 62 H (7-17) mg/dL Creatinine 4.25 H (0.52-1.04) mg/dL Glucose 268 H (74-99) mg/dL POC Glucose (mg/dL) 274 H (75-99) mg/dL Calcium 7.8 L (8.4-10.2) mg/dL Magnesium 1.4 L (1.6-2.3) mg/dL Iron (50-170) ug/dL TIBC (228-460) ug/dL % Saturation (12.00-45.00) Transferrin (204.0-354.0) mg/dL Ferritin (10.0-291.0) ng/mL Lactate Dehydrogenase (313-618) U/L Total Protein (PEP) (6.2-8.2) g/dL Procalcitonin (0.02-0.09) ng/mL Urine Appearance (Clear) Urine Protein (Negative) Urine Glucose (UA) (Negative) Urine Blood (Negative) Ur Leukocyte Esterase (Negative) Urine RBC (0-5) /hpf Urine WBC (0-5) /hpf Urine WBC Clumps (None) /hpf Ur Squamous Epith Cells (0-4) /hpf Urine Bacteria (None) /hpf Hyaline Casts (0-2) /lpf Urine Mucus (None) /hpf Stool Occult Blood (Negative) IgA (60.0-350.0) mg/dL Microbiology - Last 24 Hours (Table) 08/17/21 01:25 Blood Culture - Preliminary Blood No Growth after 24 hours 08/16/21 01:41 Blood Culture - Preliminary Blood No Growth after 24 hours 08/17/21 11:00 Urine Culture - Preliminary Urine,Voided <LeoArash - Last Filed: 08/18/21 13:17> Subjective As above. Ostomy output currently appears dark bilious. No active bleeding noted. Continue anticoagulation. Advance diet as tolerated. Will follow with you. Objective - Vital Signs Vital signs: Vital Signs Temp 98.3 F 08/18/21 08:00 Pulse 115 H 08/18/21 11:00 Resp 22 08/18/21 11:00 BP 97/40 08/18/21 11:00 Pulse Ox 98 08/18/21 11:00 Intake & Output 08/17/21 08/18/21 08/18/21 18:59 06:59 18:59 Intake Total 146.283 635.826 603.641 Output Total 1410 220 Balance 146.283 -774.174 383.641 Weight 97.522 kg Intake: IV 348 516 Amiodarone 450 mg In 48 16 Dextrose 5% in Water 250 ml @ 0.5 MG/MIN 16.667 mls/hr IV .Q15H [facility] Rx#: [id number] Dextrose 5% in Water 1, 300 500 000 ml @ 100 mls/hr IV . [id number] [facility] with Sodium Bicarb (1 Meq/ml) 150 ml Rx#:[id number] Intake, IV Titration 146.283 287.826 87.641 Amount Diltiazem 125 mg In 104.833 Sodium Chloride 0.9% 100 ml @ 5 MG/HR 5 mls/hr IV .Q24H [facility] Rx#:[id number] Heparin Sod,Pork in 0.45% 146.283 31.597 NaCl 25,000 unit In 0.45 % NaCl 1 250ml.bag @ 18 UNITS/KG/HR 17.554 mls/hr IV .[id number] [facility] Rx#: [id number] Norepinephrine 4 mg In 182.993 56.044 Sodium Chloride 0.9% 250 ml @ 0.05 MCG/KG/MIN 18. 578 mls/hr IV .[id number] [facility] Rx#:[id number] Output: Urine 1360 220 Stool 50 Other: Voiding Method Indwelling Catheter Indwelling Catheter - Labs CBC & Chem 7: 08/18/21 05:48 08/18/21 05:48 Labs: Abnormal Lab Results - Last 24 Hours (Table) 08/17/21 08/17/21 08/17/21 Range/Units 13:00 14:23 14:23 WBC 26.7 H (3.8-10.6) k/uL RBC 2.54 L (3.80-5.40) m/uL Hgb 7.7 L (11.4-16.0) gm/dL Hct 25.7 L (34.0-46.0) % MCV 101.1 H (80.0-100.0) fL MCHC 30.1 L (31.0-37.0) g/dL RDW 17.2 H (11.5-15.5) % Neutrophils # (1.3-7.7) k/uL Monocytes # (0-1.0) k/uL ESR (0-20) mm/hr Retic Count 6.5 H (0.5-2.0) % APTT (22.0-30.0) sec ABG pH (7.35-7.45) ABG pCO2 (35-45) mmHg ABG pO2 (83-108) mmHg ABG HCO3 (21-25) mmol/L ABG Total CO2 (19-24) mmol/L ABG O2 Saturation (94-97) % Chloride (98-107) mmol/L Carbon Dioxide (22-30) mmol/L BUN (7-17) mg/dL Creatinine (0.52-1.04) mg/dL Glucose (74-99) mg/dL POC Glucose (mg/dL) (75-99) mg/dL Calcium (8.4-10.2) mg/dL Magnesium (1.6-2.3) mg/dL Iron 17 L (50-170) ug/dL TIBC 206 L (228-460) ug/dL % Saturation 8.41 L (12.00-45.00) Transferrin 147.0 L (204.0-354.0) mg/dL Ferritin 394.0 H (10.0-291.0) ng/mL Lactate Dehydrogenase 1002 H (313-618) U/L Total Protein (PEP) (6.2-8.2) g/dL Urine Appearance (Clear) Urine Protein (Negative) Urine Glucose (UA) (Negative) Urine Blood (Negative) Ur Leukocyte Esterase (Negative) Urine RBC (0-5) /hpf Urine WBC (0-5) /hpf Ur Squamous Epith Cells (0-4) /hpf Urine Bacteria (None) /hpf Urine Mucus (None) /hpf IgA (60.0-350.0) mg/dL 08/17/21 08/17/21 08/17/21 Range/Units 14:23 14:23 15:21 WBC (3.8-10.6) k/uL RBC (3.80-5.40) m/uL Hgb (11.4-16.0) gm/dL Hct (34.0-46.0) % MCV (80.0-100.0) fL MCHC (31.0-37.0) g/dL RDW (11.5-15.5) % Neutrophils # (1.3-7.7) k/uL Monocytes # (0-1.0) k/uL ESR (0-20) mm/hr Retic Count (0.5-2.0) % APTT >200.0 H* (22.0-30.0) sec ABG pH (7.35-7.45) ABG pCO2 (35-45) mmHg ABG pO2 (83-108) mmHg ABG HCO3 (21-25) mmol/L ABG Total CO2 (19-24) mmol/L ABG O2 Saturation (94-97) % Chloride (98-107) mmol/L Carbon Dioxide (22-30) mmol/L BUN (7-17) mg/dL Creatinine (0.52-1.04) mg/dL Glucose (74-99) mg/dL POC Glucose (mg/dL) (75-99) mg/dL Calcium (8.4-10.2) mg/dL Magnesium (1.6-2.3) mg/dL Iron (50-170) ug/dL TIBC (228-460) ug/dL % Saturation (12.00-45.00) Transferrin (204.0-354.0) mg/dL Ferritin (10.0-291.0) ng/mL Lactate Dehydrogenase (313-618) U/L Total Protein (PEP) 5.8 L (6.2-8.2) g/dL Urine Appearance (Clear) Urine Protein (Negative) Urine Glucose (UA) (Negative) Urine Blood (Negative) Ur Leukocyte Esterase (Negative) Urine RBC (0-5) /hpf Urine WBC (0-5) /hpf Ur Squamous Epith Cells (0-4) /hpf Urine Bacteria (None) /hpf Urine Mucus (None) /hpf IgA 655.0 H (60.0-350.0) mg/dL 08/17/21 08/17/21 08/17/21 Range/Units 15:21 16:54 16:57 WBC 26.8 H (3.8-10.6) k/uL RBC 2.51 L (3.80-5.40) m/uL Hgb 8.0 L (11.4-16.0) gm/dL Hct 26.3 L (34.0-46.0) % MCV 104.7 H (80.0-100.0) fL MCHC 30.2 L (31.0-37.0) g/dL RDW 17.1 H (11.5-15.5) % Neutrophils # (1.3-7.7) k/uL Monocytes # (0-1.0) k/uL ESR 48 H (0-20) mm/hr Retic Count (0.5-2.0) % APTT (22.0-30.0) sec ABG pH 7.32 L (7.35-7.45) ABG pCO2 22 L (35-45) mmHg ABG pO2 135 H (83-108) mmHg ABG HCO3 12 L (21-25) mmol/L ABG Total CO2 12 L (19-24) mmol/L ABG O2 Saturation 99.3 H (94-97) % Chloride (98-107) mmol/L Carbon Dioxide (22-30) mmol/L BUN (7-17) mg/dL Creatinine (0.52-1.04) mg/dL Glucose (74-99) mg/dL POC Glucose (mg/dL) 138 H (75-99) mg/dL Calcium (8.4-10.2) mg/dL Magnesium (1.6-2.3) mg/dL Iron (50-170) ug/dL TIBC (228-460) ug/dL % Saturation (12.00-45.00) Transferrin (204.0-354.0) mg/dL Ferritin (10.0-291.0) ng/mL Lactate Dehydrogenase (313-618) U/L Total Protein (PEP) (6.2-8.2) g/dL Urine Appearance (Clear) Urine Protein (Negative) Urine Glucose (UA) (Negative) Urine Blood (Negative) Ur Leukocyte Esterase (Negative) Urine RBC (0-5) /hpf Urine WBC (0-5) /hpf Ur Squamous Epith Cells (0-4) /hpf Urine Bacteria (None) /hpf Urine Mucus (None) /hpf IgA (60.0-350.0) mg/dL 08/17/21 08/17/21 08/18/21 Range/Units 20:12 22:09 03:06 WBC 23.0 H 22.0 H (3.8-10.6) k/uL RBC 2.52 L 2.32 L (3.80-5.40) m/uL Hgb 7.8 L 7.3 L (11.4-16.0) gm/dL Hct 26.4 L 23.4 L (34.0-46.0) % MCV 104.7 H 100.9 H (80.0-100.0) fL MCHC 29.4 L (31.0-37.0) g/dL RDW 17.2 H 17.4 H (11.5-15.5) % Neutrophils # (1.3-7.7) k/uL Monocytes # (0-1.0) k/uL ESR (0-20) mm/hr Retic Count (0.5-2.0) % APTT (22.0-30.0) sec ABG pH (7.35-7.45) ABG pCO2 (35-45) mmHg ABG pO2 (83-108) mmHg ABG HCO3 (21-25) mmol/L ABG Total CO2 (19-24) mmol/L ABG O2 Saturation (94-97) % Chloride (98-107) mmol/L Carbon Dioxide (22-30) mmol/L BUN (7-17) mg/dL Creatinine (0.52-1.04) mg/dL Glucose (74-99) mg/dL POC Glucose (mg/dL) 161 H (75-99) mg/dL Calcium (8.4-10.2) mg/dL Magnesium (1.6-2.3) mg/dL Iron (50-170) ug/dL TIBC (228-460) ug/dL % Saturation (12.00-45.00) Transferrin (204.0-354.0) mg/dL Ferritin (10.0-291.0) ng/mL Lactate Dehydrogenase (313-618) U/L Total Protein (PEP) (6.2-8.2) g/dL Urine Appearance (Clear) Urine Protein (Negative) Urine Glucose (UA) (Negative) Urine Blood (Negative) Ur Leukocyte Esterase (Negative) Urine RBC (0-5) /hpf Urine WBC (0-5) /hpf Ur Squamous Epith Cells (0-4) /hpf Urine Bacteria (None) /hpf Urine Mucus (None) /hpf IgA (60.0-350.0) mg/dL 08/18/21 08/18/21 08/18/21 Range/Units 03:56 05:30 05:48 WBC 21.5 H (3.8-10.6) k/uL RBC 2.46 L (3.80-5.40) m/uL Hgb 7.7 L (11.4-16.0) gm/dL Hct 26.0 L (34.0-46.0) % MCV 105.6 H (80.0-100.0) fL MCHC 29.7 L (31.0-37.0) g/dL RDW 16.8 H (11.5-15.5) % Neutrophils # 18.8 H (1.3-7.7) k/uL Monocytes # 1.3 H (0-1.0) k/uL ESR (0-20) mm/hr Retic Count (0.5-2.0) % APTT (22.0-30.0) sec ABG pH (7.35-7.45) ABG pCO2 (35-45) mmHg ABG pO2 (83-108) mmHg ABG HCO3 (21-25) mmol/L ABG Total CO2 (19-24) mmol/L ABG O2 Saturation (94-97) % Chloride (98-107) mmol/L Carbon Dioxide (22-30) mmol/L BUN (7-17) mg/dL Creatinine (0.52-1.04) mg/dL Glucose (74-99) mg/dL POC Glucose (mg/dL) 260 H (75-99) mg/dL Calcium (8.4-10.2) mg/dL Magnesium (1.6-2.3) mg/dL Iron (50-170) ug/dL TIBC (228-460) ug/dL % Saturation (12.00-45.00) Transferrin (204.0-354.0) mg/dL Ferritin (10.0-291.0) ng/mL Lactate Dehydrogenase (313-618) U/L Total Protein (PEP) (6.2-8.2) g/dL Urine Appearance Cloudy H (Clear) Urine Protein 1+ H (Negative) Urine Glucose (UA) 2+ H (Negative) Urine Blood Small H (Negative) Ur Leukocyte Esterase Large H (Negative) Urine RBC 9 H (0-5) /hpf Urine WBC 56 H (0-5) /hpf Ur Squamous Epith Cells 10 H (0-4) /hpf Urine Bacteria Moderate H (None) /hpf Urine Mucus Rare H (None) /hpf IgA (60.0-350.0) mg/dL 08/18/21 08/18/21 08/18/21 Range/Units 05:48 07:09 13:02 WBC (3.8-10.6) k/uL RBC (3.80-5.40) m/uL Hgb (11.4-16.0) gm/dL Hct (34.0-46.0) % MCV (80.0-100.0) fL MCHC (31.0-37.0) g/dL RDW (11.5-15.5) % Neutrophils # (1.3-7.7) k/uL Monocytes # (0-1.0) k/uL ESR (0-20) mm/hr Retic Count (0.5-2.0) % APTT (22.0-30.0) sec ABG pH (7.35-7.45) ABG pCO2 (35-45) mmHg ABG pO2 (83-108) mmHg ABG HCO3 (21-25) mmol/L ABG Total CO2 (19-24) mmol/L ABG O2 Saturation (94-97) % Chloride 110 H (98-107) mmol/L Carbon Dioxide 11 L (22-30) mmol/L BUN 62 H (7-17) mg/dL Creatinine 4.25 H (0.52-1.04) mg/dL Glucose 268 H (74-99) mg/dL POC Glucose (mg/dL) 274 H 185 H (75-99) mg/dL Calcium 7.8 L (8.4-10.2) mg/dL Magnesium 1.4 L (1.6-2.3) mg/dL Iron (50-170) ug/dL TIBC (228-460) ug/dL % Saturation (12.00-45.00) Transferrin (204.0-354.0) mg/dL Ferritin (10.0-291.0) ng/mL Lactate Dehydrogenase (313-618) U/L Total Protein (PEP) (6.2-8.2) g/dL Urine Appearance (Clear) Urine Protein (Negative) Urine Glucose (UA) (Negative) Urine Blood (Negative) Ur Leukocyte Esterase (Negative) Urine RBC (0-5) /hpf Urine WBC (0-5) /hpf Ur Squamous Epith Cells (0-4) /hpf Urine Bacteria (None) /hpf Urine Mucus (None) /hpf IgA (60.0-350.0) mg/dL Microbiology - Last 24 Hours (Table) 08/17/21 01:25 Blood Culture - Preliminary Blood No Growth after 24 hours 08/16/21 01:41 Blood Culture - Preliminary Blood No Growth after 24 hours 08/17/21 11:00 Urine Culture - Preliminary Urine,Voided
--- NOTE | 2021-08-18 11:43 | ECHOF ---
Referral Reason:Evaluate for right heart strain MEASUREMENTS -------- HEIGHT: 162.6 cm WEIGHT: 97.5 kg BP: 90/53 RVIDd: 3.5 cm (< 3.3) IVSd: 1.0 cm (0.6 - 1.1) LVIDd: 4.1 cm (3.9 - 5.3) LVPWd: 1.0 cm (0.6 - 1.1) IVSs: 1.3 cm LVIDs: 2.5 cm LVPWs: 1.3 cm LA Diam: 3.7 cm (2.7 - 3.8) LAESV Index (A-L): 26.86 ml/m Ao Diam: 3.2 cm (2.0 - 3.7) AV Cusp: 2.0 cm (1.5 - 2.6) MV EXCURSION: 17.007 mm (> 18.000) MV EF SLOPE: 143 mm/s (70 - 150) EPSS: 0.3 cm RAP: 5.00 mmHg RVSP: 37.19 mmHg FINDINGS -------- Atrial fibrillation. This was a technically adequate study. The left ventricular size is normal. Left ventricular wall thickness is normal. Overall left vent ricular systolic function is normal with, an EF between 65 - 70 %. The right ventricle is mildly enlarged. Normal LA size by volume 22+/-6 ml/m2. The right atrium is normal in size. Aneurysmal Interatrial septum. The aortic valve is trileaflet, and appears structurally normal. No aortic stenosis or regurgitation. Mild mitral annular calcification present. Mild tricuspid regurgitation present. There is mild pulmonary hypertension. The right ventricular systolic pressure, as measured by Doppler, is 37.19mmHg. The pulmonic valve is normal. The aortic root size is normal. Normal inferior vena cava with normal inspiratory collapse consistent with estimated right atrial pre ssure of 5 mmHg. There is no pericardial effusion. CONCLUSIONS -------- 1. The left ventricular size is normal. 2. Left ventricular wall thickness is normal. 3. Overall left ventricular systolic function is normal with, an EF between 65 - 70 %. 4. The right ventricle is mildly enlarged. 5. Aneurysmal Interatrial septum. 6. The aortic valve is trileaflet, and appears structurally normal. No aortic stenosis or regurgitati on. 7. Mild mitral annular calcification present. 8. Mild tricuspid regurgitation present. 9. There is mild pulmonary hypertension. 10. The right ventricular systolic pressure, as measured by Doppler, is 37.19mmHg. 11. There is no pericardial effusion. HALL DIRECTOR: Jackie Sarabia RDCS
[2021-08-18] MEDS: MAGNESIUM SULFATE-D5W PMX 1 GM in DEXTROSE/WATER 1 100ML.BAG IVPB SCH ×2 (12:08→13:39)
[2021-08-18] MEDS ORDERED: SODIUM CHLORIDE 0.9% 2,000 ML IV ONE (12:40)
--- NOTE | 2021-08-18 12:42 | P.PN ---
Subjective Progress Note Date: 08/18/21 Principal diagnosis: Altered mental status, acute kidney injury, acute left lower extremity DVT, new onset A. fib with RVR This is a 80-year-old female patient who came into the emergency department with altered mental status. No family was available in the emergency department. The patient is unable to provide any history whatsoever. Apparently, the patient was hospitalized earlier and she was discharged from the hospital on 08/04/2021 after being treated for acute hypoxic respiratory failure secondary to COVID 19 related pneumonia and during the course of her evaluation or hospitalization, the patient had an acute kidney injury secondary to ATN and infection/sepsis secondary to underlying urine checked infection with multidrug resistant E. coli. Ultimately, the patient's condition was stabilized and she was discharged home with home care. She is known to have multiple medical problems including a previous history of a questionable pelvic mass, previous history of a right sided colectomy with diverting ileostomy, CHF, diabetes mellitus type 2, chronic stage IIIB kidney disease, chronic peripheral neuropathy, hyperlipidemia, chronic anemia and COPD. She is also known to have CHF along with history approximately atrial fibrillation. During this current admission, the patient apparently was not eating in her condition was progressively getting worse and she comes in with mental status change. In the emergency department, the patient was found to be in atrial fibrillation with rapid ventricular response. She was hypotensive. She was also found to be in acute kidney injury and she had severe anion gap metabolic acidosis. Her serum bicarb was 8 and LDL was 60 with a creatinine of 4.8 consistent with an acute on top of chronic kidney failure and the patient also had a lactic acid level as high as 5.0 with some troponin leaks. The white cell count was abnormal and the patient underwent white cell count of 28.4 with a hemoglobin of 0.7 and follow-up levels showed a drop in hemoglobin down to 8.7 and at the same time the patient normal correlation profile, UA was abnormal consistent with underlying urine checked infection. Stool occult blood was positive. Urine drug screen was negative. History of colon cancer was inserted in the emergency department. The chest x-ray showed a fall with right subclavian triple-lumen catheter which is essentially functional. There was no pulmonary consolidation. The CAT scan of the chest abdomen and pelvis was done and showed colectomy and diverting ileostomy and there was evidence of any free air in the abdomen. The Doppler of the lower activity was also done and the patient was found to have DVT in the left popliteal vein extending to the common vein and ultrasound the kidney was done that showed limited view without any acute ultrasonic changes. The patient currently is on Cardizem drip regarding her atrial fibrillation. The patient is on Cardizem drip at 5 mg an hour for rate control. The patient is also on IV heparin per protocol. The patient covered with empiric antibiotic coverage and she was given accommodation of Zosyn and Levaquin. She was also started on a bicarb infusion which is currently running at the rate of 100 mL an hour. Beckett catheter inserted. On 08/18/2000 patient seen in follow-up in the intensive care unit, she is currently awake and alert, in no acute distress, breathing comfortably, she is on 2 L of oxygen pulse ox is 97-98%, she is answering questions improperly, she denies any acute distress, she remains in atrial fibrillation with a rate of 117 BPM, she is currently on norepinephrine drip. 0.05 mics per kilo per minute, D5W with 3 A of bicarbonate at 100 ML per hour, amiodarone drip is at 0.5 mg/h. Patient is supposed to be restarted on heparin infusion as well after surgical clearance. Her VQ scan showed low probability of PE, patient was found to have left lower extremity DVT. Lung sounds are clear, diminished at the bases, no cough, no congestion, no complaints of chest pain, she remains on combination of antibiotics with Levaquin and Zosyn. Her urine and blood cultures have been negative. CT chest abdomen and pelvis showed mild atelectasis and scarring in the right lung base, no pleural effusion, no pericardial effusion no aneurysm, no hilar masses. There was no evidence of bowel obstruction. No mesenteric e gloria, no ascites or free air. 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 Echocardiogram has been reviewed showing preserved LV function with EF of 65-70%, mildly enlarged right ventricle, no aortic stenosis or regurgitation, mild tricuspid regurg, mild pulmonary hypertension with right- sided pressure of 37 mmHg. Patient is still on fairly high amount of vasopressors. Beckett catheter is in place, and patient is producing urine in the order of 30-40 mL per hour, her right-sided ileostomy is producing normal amount of greenish liquid stool. Colostomy is not bringing out any output. His labs have been reviewed, her white blood cell count is slightly improved and is currently at 21.5, hemoglobin is 7.7, sodium is 137, potassium is 4.8, chloride is 110, CO2 is 11, BUN 62, creatinine is 4.25. Renal profile is slightly improved compared to last couple of days. Nephrology services are following. Patient does have a recent history of "with 19 infection, her LDH from 08/17/2020 was 1002, and CRP it has not been checked, pro-calcitonin level is 1.5, and urinalysis showed evidence of acute urinary tract infection. Objective - Vital Signs Vital signs: Vital Signs Temp 98.3 F 08/18/21 08:00 Pulse 115 H 08/18/21 11:00 Resp 22 08/18/21 11:00 BP 97/40 08/18/21 11:00 Pulse Ox 98 08/18/21 11:00 Intake & Output 08/17/21 08/18/21 08/18/21 18:59 06:59 18:59 Intake Total 146.283 635.826 603.641 Output Total 1410 220 Balance 146.283 -774.174 383.641 Intake: IV 348 516 Amiodarone 450 mg In 48 16 Dextrose 5% in Water 250 ml @ 0.5 MG/MIN 16.667 mls/hr IV .Q15H [facility] Rx#: [id number] Dextrose 5% in Water 1, 300 500 000 ml @ 100 mls/hr IV . [id number] [facility] with Sodium Bicarb (1 Meq/ml) 150 ml Rx#:[id number] Intake, IV Titration 146.283 287.826 87.641 Amount Diltiazem 125 mg In 104.833 Sodium Chloride 0.9% 100 ml @ 5 MG/HR 5 mls/hr IV .Q24H [facility] Rx#:[id number] Heparin Sod,Pork in 0.45% 146.283 31.597 NaCl 25,000 unit In 0.45 % NaCl 1 250ml.bag @ 18 UNITS/KG/HR 17.554 mls/hr IV .[id number] [facility] Rx#: [id number] Norepinephrine 4 mg In 182.993 56.044 Sodium Chloride 0.9% 250 ml @ 0.05 MCG/KG/MIN 18. 578 mls/hr IV .[id number] [facility] Rx#:[id number] Output: Urine 1360 220 Stool 50 Other: Voiding Method Indwelling Catheter Indwelling Catheter - Exam GENERAL EXAM: Alert, very pleasant, 80-year-old white female, on 2 L of oxygen, comfortable in no apparent distress. HEAD: Normocephalic/atraumatic. EYES: Normal reaction of pupils, equal size. Conjunctiva pink, sclera white. NOSE: Clear with pink turbinates. THROAT: No erythema or exudates. NECK: No masses, no JVD, no thyroid enlargement, no adenopathy. CHEST: No chest wall deformity. Symmetrical expansion. LUNGS: Equal air entry with no crackles, wheeze, rhonchi or dullness. CVS: Irregular rate and rhythm, normal S1 and S2, no gallops, no murmurs, no rubs ABDOMEN: Soft, nontender. No hepatosplenomegaly, normal bowel sounds, no guarding or rigidity. Right lower quadrant ileostomy is with small amount of green liquid output, and left lower quadrant colostomy with no output EXTREMITIES: No clubbing, no edema, no cyanosis, 2+ pulses and upper and lower extremities. MUSCULOSKELETAL: Muscle strength and tone normal. SPINE: No scoliosis or deformity SKIN: No rashes CENTRAL NERVOUS SYSTEM: Alert and oriented -3. No focal deficits, tone is normal in all 4 extremities. PSYCHIATRIC: Alert and oriented -3. Appropriate affect. Intact judgment and insight. - Labs CBC & Chem 7: 08/18/21 05:48 08/18/21 05:48 Labs: Abnormal Lab Results - Last 24 Hours (Table) 08/17/21 08/17/21 08/17/21 Range/Units 07:53 12:55 13:00 WBC 26.7 H (3.8-10.6) k/uL RBC 2.54 L (3.80-5.40) m/uL Hgb 7.7 L (11.4-16.0) gm/dL Hct 25.7 L (34.0-46.0) % MCV 101.1 H (80.0-100.0) fL MCHC 30.1 L (31.0-37.0) g/dL RDW 17.2 H (11.5-15.5) % Neutrophils # (1.3-7.7) k/uL Monocytes # (0-1.0) k/uL ESR (0-20) mm/hr Retic Count (0.5-2.0) % APTT (22.0-30.0) sec ABG pH (7.35-7.45) ABG pCO2 (35-45) mmHg ABG pO2 (83-108) mmHg ABG HCO3 (21-25) mmol/L ABG Total CO2 (19-24) mmol/L ABG O2 Saturation (94-97) % Potassium 5.3 H (3.5-5.1) mmol/L Chloride 112 H (98-107) mmol/L Carbon Dioxide 11 L (22-30) mmol/L BUN 62 H (7-17) mg/dL Creatinine 4.49 H (0.52-1.04) mg/dL Glucose 167 H (74-99) mg/dL POC Glucose (mg/dL) (75-99) mg/dL Calcium (8.4-10.2) mg/dL Magnesium (1.6-2.3) mg/dL Iron (50-170) ug/dL TIBC (228-460) ug/dL % Saturation (12.00-45.00) Transferrin (204.0-354.0) mg/dL Ferritin (10.0-291.0) ng/mL Lactate Dehydrogenase (313-618) U/L Total Protein (PEP) (6.2-8.2) g/dL Urine Appearance (Clear) Urine Protein (Negative) Urine Glucose (UA) (Negative) Urine Blood (Negative) Ur Leukocyte Esterase (Negative) Urine RBC (0-5) /hpf Urine WBC (0-5) /hpf Ur Squamous Epith Cells (0-4) /hpf Urine Bacteria (None) /hpf Urine Mucus (None) /hpf Stool Occult Blood Positive H (Negative) IgA (60.0-350.0) mg/dL 08/17/21 08/17/21 08/17/21 Range/Units 14:23 14:23 14:23 WBC (3.8-10.6) k/uL RBC (3.80-5.40) m/uL Hgb (11.4-16.0) gm/dL Hct (34.0-46.0) % MCV (80.0-100.0) fL MCHC (31.0-37.0) g/dL RDW (11.5-15.5) % Neutrophils # (1.3-7.7) k/uL Monocytes # (0-1.0) k/uL ESR (0-20) mm/hr Retic Count 6.5 H (0.5-2.0) % APTT (22.0-30.0) sec ABG pH (7.35-7.45) ABG pCO2 (35-45) mmHg ABG pO2 (83-108) mmHg ABG HCO3 (21-25) mmol/L ABG Total CO2 (19-24) mmol/L ABG O2 Saturation (94-97) % Potassium (3.5-5.1) mmol/L Chloride (98-107) mmol/L Carbon Dioxide (22-30) mmol/L BUN (7-17) mg/dL Creatinine (0.52-1.04) mg/dL Glucose (74-99) mg/dL POC Glucose (mg/dL) (75-99) mg/dL Calcium (8.4-10.2) mg/dL Magnesium (1.6-2.3) mg/dL Iron 17 L (50-170) ug/dL TIBC 206 L (228-460) ug/dL % Saturation 8.41 L (12.00-45.00) Transferrin 147.0 L (204.0-354.0) mg/dL Ferritin 394.0 H (10.0-291.0) ng/mL Lactate Dehydrogenase 1002 H (313-618) U/L Total Protein (PEP) 5.8 L (6.2-8.2) g/dL Urine Appearance (Clear) Urine Protein (Negative) Urine Glucose (UA) (Negative) Urine Blood (Negative) Ur Leukocyte Esterase (Negative) Urine RBC (0-5) /hpf Urine WBC (0-5) /hpf Ur Squamous Epith Cells (0-4) /hpf Urine Bacteria (None) /hpf Urine Mucus (None) /hpf Stool Occult Blood (Negative) IgA (60.0-350.0) mg/dL 08/17/21 08/17/21 08/17/21 Range/Units 14:23 15:21 15:21 WBC 26.8 H (3.8-10.6) k/uL RBC 2.51 L (3.80-5.40) m/uL Hgb 8.0 L (11.4-16.0) gm/dL Hct 26.3 L (34.0-46.0) % MCV 104.7 H (80.0-100.0) fL MCHC 30.2 L (31.0-37.0) g/dL RDW 17.1 H (11.5-15.5) % Neutrophils # (1.3-7.7) k/uL Monocytes # (0-1.0) k/uL ESR 48 H (0-20) mm/hr Retic Count (0.5-2.0) % APTT >200.0 H* (22.0-30.0) sec ABG pH (7.35-7.45) ABG pCO2 (35-45) mmHg ABG pO2 (83-108) mmHg ABG HCO3 (21-25) mmol/L ABG Total CO2 (19-24) mmol/L ABG O2 Saturation (94-97) % Potassium (3.5-5.1) mmol/L Chloride (98-107) mmol/L Carbon Dioxide (22-30) mmol/L BUN (7-17) mg/dL Creatinine (0.52-1.04) mg/dL Glucose (74-99) mg/dL POC Glucose (mg/dL) (75-99) mg/dL Calcium (8.4-10.2) mg/dL Magnesium (1.6-2.3) mg/dL Iron (50-170) ug/dL TIBC (228-460) ug/dL % Saturation (12.00-45.00) Transferrin (204.0-354.0) mg/dL Ferritin (10.0-291.0) ng/mL Lactate Dehydrogenase (313-618) U/L Total Protein (PEP) (6.2-8.2) g/dL Urine Appearance (Clear) Urine Protein (Negative) Urine Glucose (UA) (Negative) Urine Blood (Negative) Ur Leukocyte Esterase (Negative) Urine RBC (0-5) /hpf Urine WBC (0-5) /hpf Ur Squamous Epith Cells (0-4) /hpf Urine Bacteria (None) /hpf Urine Mucus (None) /hpf Stool Occult Blood (Negative) IgA 655.0 H (60.0-350.0) mg/dL 08/17/21 08/17/21 08/17/21 Range/Units 16:54 16:57 20:12 WBC (3.8-10.6) k/uL RBC (3.80-5.40) m/uL Hgb (11.4-16.0) gm/dL Hct (34.0-46.0) % MCV (80.0-100.0) fL MCHC (31.0-37.0) g/dL RDW (11.5-15.5) % Neutrophils # (1.3-7.7) k/uL Monocytes # (0-1.0) k/uL ESR (0-20) mm/hr Retic Count (0.5-2.0) % APTT (22.0-30.0) sec ABG pH 7.32 L (7.35-7.45) ABG pCO2 22 L (35-45) mmHg ABG pO2 135 H (83-108) mmHg ABG HCO3 12 L (21-25) mmol/L ABG Total CO2 12 L (19-24) mmol/L ABG O2 Saturation 99.3 H (94-97) % Potassium (3.5-5.1) mmol/L Chloride (98-107) mmol/L Carbon Dioxide (22-30) mmol/L BUN (7-17) mg/dL Creatinine (0.52-1.04) mg/dL Glucose (74-99) mg/dL POC Glucose (mg/dL) 138 H 161 H (75-99) mg/dL Calcium (8.4-10.2) mg/dL Magnesium (1.6-2.3) mg/dL Iron (50-170) ug/dL TIBC (228-460) ug/dL % Saturation (12.00-45.00) Transferrin (204.0-354.0) mg/dL Ferritin (10.0-291.0) ng/mL Lactate Dehydrogenase (313-618) U/L Total Protein (PEP) (6.2-8.2) g/dL Urine Appearance (Clear) Urine Protein (Negative) Urine Glucose (UA) (Negative) Urine Blood (Negative) Ur Leukocyte Esterase (Negative) Urine RBC (0-5) /hpf Urine WBC (0-5) /hpf Ur Squamous Epith Cells (0-4) /hpf Urine Bacteria (None) /hpf Urine Mucus (None) /hpf Stool Occult Blood (Negative) IgA (60.0-350.0) mg/dL 08/17/21 08/18/21 08/18/21 Range/Units 22:09 03:06 03:56 WBC 23.0 H 22.0 H (3.8-10.6) k/uL RBC 2.52 L 2.32 L (3.80-5.40) m/uL Hgb 7.8 L 7.3 L (11.4-16.0) gm/dL Hct 26.4 L 23.4 L (34.0-46.0) % MCV 104.7 H 100.9 H (80.0-100.0) fL MCHC 29.4 L (31.0-37.0) g/dL RDW 17.2 H 17.4 H (11.5-15.5) % Neutrophils # (1.3-7.7) k/uL Monocytes # (0-1.0) k/uL ESR (0-20) mm/hr Retic Count (0.5-2.0) % APTT (22.0-30.0) sec ABG pH (7.35-7.45) ABG pCO2 (35-45) mmHg ABG pO2 (83-108) mmHg ABG HCO3 (21-25) mmol/L ABG Total CO2 (19-24) mmol/L ABG O2 Saturation (94-97) % Potassium (3.5-5.1) mmol/L Chloride (98-107) mmol/L Carbon Dioxide (22-30) mmol/L BUN (7-17) mg/dL Creatinine (0.52-1.04) mg/dL Glucose (74-99) mg/dL POC Glucose (mg/dL) 260 H (75-99) mg/dL Calcium (8.4-10.2) mg/dL Magnesium (1.6-2.3) mg/dL Iron (50-170) ug/dL TIBC (228-460) ug/dL % Saturation (12.00-45.00) Transferrin (204.0-354.0) mg/dL Ferritin (10.0-291.0) ng/mL Lactate Dehydrogenase (313-618) U/L Total Protein (PEP) (6.2-8.2) g/dL Urine Appearance (Clear) Urine Protein (Negative) Urine Glucose (UA) (Negative) Urine Blood (Negative) Ur Leukocyte Esterase (Negative) Urine RBC (0-5) /hpf Urine WBC (0-5) /hpf Ur Squamous Epith Cells (0-4) /hpf Urine Bacteria (None) /hpf Urine Mucus (None) /hpf Stool Occult Blood (Negative) IgA (60.0-350.0) mg/dL 08/18/21 08/18/21 08/18/21 Range/Units 05:30 05:48 05:48 WBC 21.5 H (3.8-10.6) k/uL RBC 2.46 L (3.80-5.40) m/uL Hgb 7.7 L (11.4-16.0) gm/dL Hct 26.0 L (34.0-46.0) % MCV 105.6 H (80.0-100.0) fL MCHC 29.7 L (31.0-37.0) g/dL RDW 16.8 H (11.5-15.5) % Neutrophils # 18.8 H (1.3-7.7) k/uL Monocytes # 1.3 H (0-1.0) k/uL ESR (0-20) mm/hr Retic Count (0.5-2.0) % APTT (22.0-30.0) sec ABG pH (7.35-7.45) ABG pCO2 (35-45) mmHg ABG pO2 (83-108) mmHg ABG HCO3 (21-25) mmol/L ABG Total CO2 (19-24) mmol/L ABG O2 Saturation (94-97) % Potassium (3.5-5.1) mmol/L Chloride 110 H (98-107) mmol/L Carbon Dioxide 11 L (22-30) mmol/L BUN 62 H (7-17) mg/dL Creatinine 4.25 H (0.52-1.04) mg/dL Glucose 268 H (74-99) mg/dL POC Glucose (mg/dL) (75-99) mg/dL Calcium 7.8 L (8.4-10.2) mg/dL Magnesium 1.4 L (1.6-2.3) mg/dL Iron (50-170) ug/dL TIBC (228-460) ug/dL % Saturation (12.00-45.00) Transferrin (204.0-354.0) mg/dL Ferritin (10.0-291.0) ng/mL Lactate Dehydrogenase (313-618) U/L Total Protein (PEP) (6.2-8.2) g/dL Urine Appearance Cloudy H (Clear) Urine Protein 1+ H (Negative) Urine Glucose (UA) 2+ H (Negative) Urine Blood Small H (Negative) Ur Leukocyte Esterase Large H (Negative) Urine RBC 9 H (0-5) /hpf Urine WBC 56 H (0-5) /hpf Ur Squamous Epith Cells 10 H (0-4) /hpf Urine Bacteria Moderate H (None) /hpf Urine Mucus Rare H (None) /hpf Stool Occult Blood (Negative) IgA (60.0-350.0) mg/dL 08/18/21 Range/Units 07:09 WBC (3.8-10.6) k/uL RBC (3.80-5.40) m/uL Hgb (11.4-16.0) gm/dL Hct (34.0-46.0) % MCV (80.0-100.0) fL MCHC (31.0-37.0) g/dL RDW (11.5-15.5) % Neutrophils # (1.3-7.7) k/uL Monocytes # (0-1.0) k/uL ESR (0-20) mm/hr Retic Count (0.5-2.0) % APTT (22.0-30.0) sec ABG pH (7.35-7.45) ABG pCO2 (35-45) mmHg ABG pO2 (83-108) mmHg ABG HCO3 (21-25) mmol/L ABG Total CO2 (19-24) mmol/L ABG O2 Saturation (94-97) % Potassium (3.5-5.1) mmol/L Chloride (98-107) mmol/L Carbon Dioxide (22-30) mmol/L BUN (7-17) mg/dL Creatinine (0.52-1.04) mg/dL Glucose (74-99) mg/dL POC Glucose (mg/dL) 274 H (75-99) mg/dL Calcium (8.4-10.2) mg/dL Magnesium (1.6-2.3) mg/dL Iron (50-170) ug/dL TIBC (228-460) ug/dL % Saturation (12.00-45.00) Transferrin (204.0-354.0) mg/dL Ferritin (10.0-291.0) ng/mL Lactate Dehydrogenase (313-618) U/L Total Protein (PEP) (6.2-8.2) g/dL Urine Appearance (Clear) Urine Protein (Negative) Urine Glucose (UA) (Negative) Urine Blood (Negative) Ur Leukocyte Esterase (Negative) Urine RBC (0-5) /hpf Urine WBC (0-5) /hpf Ur Squamous Epith Cells (0-4) /hpf Urine Bacteria (None) /hpf Urine Mucus (None) /hpf Stool Occult Blood (Negative) IgA (60.0-350.0) mg/dL Microbiology - Last 24 Hours (Table) 08/17/21 01:25 Blood Culture - Preliminary Blood No Growth after 24 hours 08/16/21 01:41 Blood Culture - Preliminary Blood No Growth after 24 hours 08/17/21 11:00 Urine Culture - Preliminary Urine,Voided Assessment and Plan Plan: Assessment: #1. Altered mental status related to toxic metabolic encephalopathy. In part due to acute urinary tract infection, acute kidney injury and recent history of COVID-19 infection #2. PETE on top of CTD stage III #3. Benign gap metabolic acidosis/lactic acidosis #4. Acute left lower leg DVT, currently remains on heparin infusion #5. New onset A. fib with RVR, currently on Cardizem and heparin infusion #6. Acute leukocytosis #7. Recent infection with COVID-19 without obvious COVID-19 associated pneumonia, patient is currently on oxygen with no signs of any respiratory distress #8. E. coli urinary tract infection, and this was treated however recurrence of infection is suspected, possibly multidrug resistant #9. Uterus/pelvic mass with recent history of exploratory laparotomy, right colectomy and ileostomy with repair of umbilical hernia and mucus fistula in June 2021 #10. History of CHF with preserved LV function, moderate concentric LVH, EF of 65-70%, mild pulmonary hypertension with right-sided pressure 37 mmHg. #11. History of diabetes mellitus type 2 #12. History of hyperlipidemia #13. History of hypertension #14. Osteoarthritis #15. Chronic neuropathy #16. COPD #17. Chronic anemia with interval drop in hemoglobin no evidence of any active GI bleeding at this time Plan: Patient remains on fairly high-dose of vasopressor support We will give the patient additional 2 L in fluid boluses Echocardiogram has been noted, patient has preserved LV function and improved pulmonary hypertension Continue with current antibiotics, patient is on Levaquin and Zosyn Await final urine cultures No significant pulmonary complaints Rate control medications and anticoagulation per cardiology for A. fib with RVR Nutritional support, maintain aspiration precautions, We'll continue to follow I performed a history & physical examination of the patient and discussed their management with my nurse practitioner, Mayra Garcia. I reviewed the nurse practitioner's note and agree with the documented findings and plan of care. Lung sounds are positive for diminished breath sounds throughout the lung hong. The findings and the impression was discussed with the patient. I attest to the documentation by the nurse practitioner. Time with Patient: Greater than 30
[2021-08-18 12:47] LABS: Cardiolipin Ab IgG Interp NEGATIVE (NEGATIVE); Cardiolipin Ab IgM Interp NEGATIVE (NEGATIVE); Cardiolipin IgA Antibody <2.0 U/mL; Cardiolipin IgM Antibody <1.5 U/mL
[2021-08-18 13:04] LABS: Glucose,Whole Blood 185 mg/dL (75-99)
[2021-08-18] MEDS: PANTOPRAZOLE 40 MG/10 ML VIAL IVP SCH ×2 (13:29→21:35)
--- NOTE | 2021-08-18 15:09 | P.PN ---
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 Quiñonez, and recent admission from 07/29/21-08/04/21 for acute respiratory failure with hypoxia secondary to Covid 19 pneumonitis. Patient presented to the emergency department by EMS with a chief complaint of alteration in mental status, nausea and coffee ground emesis. Patient underwent full evaluation. She was found to be tachycardic 120s to 140s, to 20-24 breaths per minute, hypoxic requiring oxygen supplementation with placement on nonrebreather, and found to have a low-grade temp of 99.9F. EKG revealed atrial fibrillation with a rapid ventricular rate of 148 bpm. Labs revealed significant leukocytosis with WBC count 28.4, anemic with hemoglobin of 9.7, hyperkalemic with potassium 5.4, acidotic with chloride 107, CO2 8, anion gap 22, and plasma lactic acid of 5.0 acute kidney injury with BUN 60, creatinine 4.84, and GFR of 8 with baseline creatinine of 1.8-2.0. Troponins were elevated at 0.062 and 0.054. Pro-calcitonin also elevated at 1.50. Urinalysis positive for infection. Chest x-ray showing mild pulmonary fibrotic changes with no evidence of heart failure or acute cardiopulmonary process. CT chest, abdomen, and pelvis without contrast revealed no evidence of bowel obstruction with no free air however there was a reported new complex 6 x 4 cm cyst on right ovary which is reported being new compared to previous exam. Left lower extremity Dopplers were positive for DVT extending from the left popliteal vein to the femoral vein. Patient was started on heparin infusion for treatment of acute DVT, Cardizem infusion for atrial fibrillation with RVR, bicarb infusion for severe metabolic acidosis with a critical bicarb of 8. Given sepsis bolus of 3 L normal saline and started on IV antibiotics Zosyn and Levaquin. Consultations were placed general surgery for concerns of GI bleed, cardiology for elevated troponin and A. fib RVR, nephrology for acute renal failure and severe metabolic acidosis requiring bicarbonate infusion, and hematology secondary to development of DVT while on oral anticoagulant. Consult was also placed to statistical developer secondary to critically ill patient, at this time patient awaiting bed placement on stepdown unit. Called to update patient's son, Yanick, I spoke with him and updated him on mother's critical condition. 08/18: Patient remains in the intensive care unit. She's been on amiodarone and heparin for A. fib with RVR, she is currently on norepinephrine and also receiving magnesium replacement. Patient has black stool in her ostomy and heparin will be discontinued. Abdomen is firm. Consult is in place with general surgery and she has been cleared to start diet. Patient is seen and followed by multiple consultants including oncology, cardiology, nephrology and statistical developer. Echocardiogram reveals EF of 65-70%, aneurysmal intra-atrial septum, mild tricuspid regurgitation, no aortic stenosis or regurgitation. Mild mitral ossification. Mild pulmonary hypertension, RVSP 37.19.. Pulmonary perfusion study showed small perfusion defects correspond to low probability for pulmonary embolism. Review Of Systems: Constitutional: No documented fever, no chills, no night sweats. No weight change. Noted weakness, fatigue. No daytime sleepiness. EENT: No headache. No blurred vision or double vision, no loss of vision. No loss of Hearing, no ringing in the ears, no dizziness. No nasal drainage or congestion. No epistaxis. No sore throat. Lungs: No shortness of breath, cough, no sputum production. No wheezing. Cardiovascular: No chest pain, no lower extremity edema. No palpitations. No paroxysmal nocturnal dyspnea. No orthopnea. No lightheadedness or dizziness. No syncopal episodes. Abdominal: No abdominal pain. No nausea, vomiting. No diarrhea. No constipation. NoTED bloody or tarry stools.. No loss of appetite. Genitourinary: No dysuria, increased frequency, urgency. No urinary retention. Musculoskeletal: No myalgias. No muscle weakness, no gait dysfunction, no frequent falls. No back pain. No neck pain. Integumentary: No wounds, no lesions. No rash or pruritus. No unusual br uising. No change in hair or nails. Neurologic: No aphasia. No facial droop. No change in mentation. No head injury. No headache. No paralysis. No paresthesia. Psychiatric: No depression. No anxiety. No mood swings. Endocrine: No abnormal blood sugars. No weight change. No excessive sweating or thirst. No cold intolerance. Physical exam: Gen: This is an elderly frail appearing 80-year-old female, resting in bed in no acute distress. Patient is seen today in the intensive care unit. HEENT: Head is atraumatic, normocephalic. Pupils equal, round. Sclerae is anicteric. NECK: Supple. No JVD. No lymphadenopathy. No thyromegaly. LUNGS: Decreased breath some bilateral rhonchi and mild expiratory wheezes. HEART: Irregular rate and rhythm. Monitor atrial fibrillation. ABDOMEN: Abdomen firm, no rebound or rigidity. Ostomy on the right side with black liquid stool, mucous fistula on the left. Beckett catheter draining nicolette urine EXTREMITIES: No pedal edema. No calf tenderness. NEUROLOGICAL: Patient is awake, alert with slight confusion. Cranial nerves 2 through 12 are grossly intact. Assessment and Plan of Care: Metabolic encephalopathy, Likely multifactorial resulting from current critical state with severe metabolic acidosis, severe sepsis, PETE, and following conditions listed below. Severe sepsis with septic shock requiring vasopressors of unclear etiology possibly urinary tract infection versus other source such as abdominal Continue care in the intensive care unit, statistical developer consult appreciated.continue Levaquin, Zosyn, vasopressor support, status post IV fluid resuscitation, await urine and blood culture results GI bleed with reports of coffee-ground emesis Acute on chronic anemia slightly below baseline hemoglobin of 9 Continue Protonix 40 mg IV twice daily, general surgery consult, diet advanced to full liquid. Continue to monitor hemoglobin. Heparin drip discontinued Acute DVT of left lower extremity Acute hypoxic respiratory failure, recent admission for Covid 19 pneumonitis from 07/29/21 through 08/04/21 Pulmonary embolus and ruled out. Acute kidney injury on chronic kidney disease stage III Severe Metabolic acidosis Lactic acidosis UTI with history of [id number] E. coli -Continue bicarbonate infusion -Consult nephrology -Insert Beckett catheter for close monitoring of I's and O's. -Treat UTI with Zosyn as previous culture was sensitive -Renal ultrasound -Caution with nephrotoxic medications. -Follow up on urine culture. Atrial fibrillation with RVR, paroxysmal atrial fibrillation Elevated troponin, flat, likely secondary to RVR Chronic diastolic heart failure with previously known EF of 55-60% Continue Cardizem drip, cardiology consult appreciated continue Lopressor 50 mg twice daily heparin drip for OB discontinued. Diabetes mellitus type 2 insulin requiring, uncontrolled with hyperglycemia. Continue NovoLog scale, add NovoLog 5 units with meals Incidental finding on imaging -CT reported new complex 6 x 4 cm cyst on right ovary which is reported being new compared to previous exam -Previous surgical report from 06/20/21 stated findings of a 3.5 cm lesion on right ovary concerning for potential ovarian canceOncology consult appreciated Hypertension. Patient is off anti-hypertensive medications. Hyperlipidemia CODE STATUS: Full code DVT prophylaxis: SCDs and FAHEEM hose DISCHARGE PLAN Acute rehab at [facility] Impression and plan of care have been directed as dictated by the signing physician. Thais Scott nurse practitioner acting as scribe for signing physician. Objective - Vital Signs Vital signs: Vital Signs Temp 98.3 F 08/18/21 08:00 Pulse 115 H 08/18/21 11:00 Resp 22 08/18/21 11:00 BP 97/40 08/18/21 11:00 Pulse Ox 98 08/18/21 11:00 Intake & Output 08/17/21 08/18/21 08/18/21 18:59 06:59 18:59 Intake Total 146.283 635.826 603.641 Output Total 1410 220 Balance 146.283 -774.174 383.641 Intake: IV 348 516 Amiodarone 450 mg In 48 16 Dextrose 5% in Water 250 ml @ 0.5 MG/MIN 16.667 mls/hr IV .Q15H [facility] Rx#: [id number] Dextrose 5% in Water 1, 300 500 000 ml @ 100 mls/hr IV . [id number] [facility] with Sodium Bicarb (1 Meq/ml) 150 ml Rx#:[id number] Intake, IV Titration 146.283 287.826 87.641 Amount Diltiazem 125 mg In 104.833 Sodium Chloride 0.9% 100 ml @ 5 MG/HR 5 mls/hr IV .Q24H [facility] Rx#:[id number] Heparin Sod,Pork in 0.45% 146.283 31.597 NaCl 25,000 unit In 0.45 % NaCl 1 250ml.bag @ 18 UNITS/KG/HR 17.554 mls/hr IV .[id number] [facility] Rx#: [id number] Norepinephrine 4 mg In 182.993 56.044 Sodium Chloride 0.9% 250 ml @ 0.05 MCG/KG/MIN 18. 578 mls/hr IV .[id number] [facility] Rx#:[id number] Output: Urine 1360 220 Stool 50 Other: Voiding Method Indwelling Catheter Indwelling Catheter - Labs CBC & Chem 7: 08/18/21 05:48 08/18/21 05:48 Labs: Abnormal Lab Results - Last 24 Hours (Table) 08/17/21 08/17/21 08/17/21 Range/Units 12:55 13:00 14:23 WBC 26.7 H (3.8-10.6) k/uL RBC 2.54 L (3.80-5.40) m/uL Hgb 7.7 L (11.4-16.0) gm/dL Hct 25.7 L (34.0-46.0) % MCV 101.1 H (80.0-100.0) fL MCHC 30.1 L (31.0-37.0) g/dL RDW 17.2 H (11.5-15.5) % Neutrophils # (1.3-7.7) k/uL Monocytes # (0-1.0) k/uL ESR (0-20) mm/hr Retic Count 6.5 H (0.5-2.0) % APTT (22.0-30.0) sec ABG pH (7.35-7.45) ABG pCO2 (35-45) mmHg ABG pO2 (83-108) mmHg ABG HCO3 (21-25) mmol/L ABG Total CO2 (19-24) mmol/L ABG O2 Saturation (94-97) % Chloride (98-107) mmol/L Carbon Dioxide (22-30) mmol/L BUN (7-17) mg/dL Creatinine (0.52-1.04) mg/dL Glucose (74-99) mg/dL POC Glucose (mg/dL) (75-99) mg/dL Calcium (8.4-10.2) mg/dL Magnesium (1.6-2.3) mg/dL Iron (50-170) ug/dL TIBC (228-460) ug/dL % Saturation (12.00-45.00) Transferrin (204.0-354.0) mg/dL Ferritin (10.0-291.0) ng/mL Lactate Dehydrogenase (313-618) U/L Total Protein (PEP) (6.2-8.2) g/dL Urine Appearance (Clear) Urine Protein (Negative) Urine Glucose (UA) (Negative) Urine Blood (Negative) Ur Leukocyte Esterase (Negative) Urine RBC (0-5) /hpf Urine WBC (0-5) /hpf Ur Squamous Epith Cells (0-4) /hpf Urine Bacteria (None) /hpf Urine Mucus (None) /hpf Stool Occult Blood Positive H (Negative) IgA (60.0-350.0) mg/dL 08/17/21 08/17/21 08/17/21 Range/Units 14:23 14:23 14:23 WBC (3.8-10.6) k/uL RBC (3.80-5.40) m/uL Hgb (11.4-16.0) gm/dL Hct (34.0-46.0) % MCV (80.0-100.0) fL MCHC (31.0-37.0) g/dL RDW (11.5-15.5) % Neutrophils # (1.3-7.7) k/uL Monocytes # (0-1.0) k/uL ESR (0-20) mm/hr Retic Count (0.5-2.0) % APTT (22.0-30.0) sec ABG pH (7.35-7.45) ABG pCO2 (35-45) mmHg ABG pO2 (83-108) mmHg ABG HCO3 (21-25) mmol/L ABG Total CO2 (19-24) mmol/L ABG O2 Saturation (94-97) % Chloride (98-107) mmol/L Carbon Dioxide (22-30) mmol/L BUN (7-17) mg/dL Creatinine (0.52-1.04) mg/dL Glucose (74-99) mg/dL POC Glucose (mg/dL) (75-99) mg/dL Calcium (8.4-10.2) mg/dL Magnesium (1.6-2.3) mg/dL Iron 17 L (50-170) ug/dL TIBC 206 L (228-460) ug/dL % Saturation 8.41 L (12.00-45.00) Transferrin 147.0 L (204.0-354.0) mg/dL Ferritin 394.0 H (10.0-291.0) ng/mL Lactate Dehydrogenase 1002 H (313-618) U/L Total Protein (PEP) 5.8 L (6.2-8.2) g/dL Urine Appearance (Clear) Urine Protein (Negative) Urine Glucose (UA) (Negative) Urine Blood (Negative) Ur Leukocyte Esterase (Negative) Urine RBC (0-5) /hpf Urine WBC (0-5) /hpf Ur Squamous Epith Cells (0-4) /hpf Urine Bacteria (None) /hpf Urine Mucus (None) /hpf Stool Occult Blood (Negative) IgA 655.0 H (60.0-350.0) mg/dL 08/17/21 08/17/21 08/17/21 Range/Units 15:21 15:21 16:54 WBC 26.8 H (3.8-10.6) k/uL RBC 2.51 L (3.80-5.40) m/uL Hgb 8.0 L (11.4-16.0) gm/dL Hct 26.3 L (34.0-46.0) % MCV 104.7 H (80.0-100.0) fL MCHC 30.2 L (31.0-37.0) g/dL RDW 17.1 H (11.5-15.5) % Neutrophils # (1.3-7.7) k/uL Monocytes # (0-1.0) k/uL ESR 48 H (0-20) mm/hr Retic Count (0.5-2.0) % APTT >200.0 H* (22.0-30.0) sec ABG pH 7.32 L (7.35-7.45) ABG pCO2 22 L (35-45) mmHg ABG pO2 135 H (83-108) mmHg ABG HCO3 12 L (21-25) mmol/L ABG Total CO2 12 L (19-24) mmol/L ABG O2 Saturation 99.3 H (94-97) % Chloride (98-107) mmol/L Carbon Dioxide (22-30) mmol/L BUN (7-17) mg/dL Creatinine (0.52-1.04) mg/dL Glucose (74-99) mg/dL POC Glucose (mg/dL) (75-99) mg/dL Calcium (8.4-10.2) mg/dL Magnesium (1.6-2.3) mg/dL Iron (50-170) ug/dL TIBC (228-460) ug/dL % Saturation (12.00-45.00) Transferrin (204.0-354.0) mg/dL Ferritin (10.0-291.0) ng/mL Lactate Dehydrogenase (313-618) U/L Total Protein (PEP) (6.2-8.2) g/dL Urine Appearance (Clear) Urine Protein (Negative) Urine Glucose (UA) (Negative) Urine Blood (Negative) Ur Leukocyte Esterase (Negative) Urine RBC (0-5) /hpf Urine WBC (0-5) /hpf Ur Squamous Epith Cells (0-4) /hpf Urine Bacteria (None) /hpf Urine Mucus (None) /hpf Stool Occult Blood (Negative) IgA (60.0-350.0) mg/dL 08/17/21 08/17/21 08/17/21 Range/Units 16:57 20:12 22:09 WBC 23.0 H (3.8-10.6) k/uL RBC 2.52 L (3.80-5.40) m/uL Hgb 7.8 L (11.4-16.0) gm/dL Hct 26.4 L (34.0-46.0) % MCV 104.7 H (80.0-100.0) fL MCHC 29.4 L (31.0-37.0) g/dL RDW 17.2 H (11.5-15.5) % Neutrophils # (1.3-7.7) k/uL Monocytes # (0-1.0) k/uL ESR (0-20) mm/hr Retic Count (0.5-2.0) % APTT (22.0-30.0) sec ABG pH (7.35-7.45) ABG pCO2 (35-45) mmHg ABG pO2 (83-108) mmHg ABG HCO3 (21-25) mmol/L ABG Total CO2 (19-24) mmol/L ABG O2 Saturation (94-97) % Chloride (98-107) mmol/L Carbon Dioxide (22-30) mmol/L BUN (7-17) mg/dL Creatinine (0.52-1.04) mg/dL Glucose (74-99) mg/dL POC Glucose (mg/dL) 138 H 161 H (75-99) mg/dL Calcium (8.4-10.2) mg/dL Magnesium (1.6-2.3) mg/dL Iron (50-170) ug/dL TIBC (228-460) ug/dL % Saturation (12.00-45.00) Transferrin (204.0-354.0) mg/dL Ferritin (10.0-291.0) ng/mL Lactate Dehydrogenase (313-618) U/L Total Protein (PEP) (6.2-8.2) g/dL Urine Appearance (Clear) Urine Protein (Negative) Urine Glucose (UA) (Negative) Urine Blood (Negative) Ur Leukocyte Esterase (Negative) Urine RBC (0-5) /hpf Urine WBC (0-5) /hpf Ur Squamous Epith Cells (0-4) /hpf Urine Bacteria (None) /hpf Urine Mucus (None) /hpf Stool Occult Blood (Negative) IgA (60.0-350.0) mg/dL 08/18/21 08/18/21 08/18/21 Range/Units 03:06 03:56 05:30 WBC 22.0 H (3.8-10.6) k/uL RBC 2.32 L (3.80-5.40) m/uL Hgb 7.3 L (11.4-16.0) gm/dL Hct 23.4 L (34.0-46.0) % MCV 100.9 H (80.0-100.0) fL MCHC (31.0-37.0) g/dL RDW 17.4 H (11.5-15.5) % Neutrophils # (1.3-7.7) k/uL Monocytes # (0-1.0) k/uL ESR (0-20) mm/hr Retic Count (0.5-2.0) % APTT (22.0-30.0) sec ABG pH (7.35-7.45) ABG pCO2 (35-45) mmHg ABG pO2 (83-108) mmHg ABG HCO3 (21-25) mmol/L ABG Total CO2 (19-24) mmol/L ABG O2 Saturation (94-97) % Chloride (98-107) mmol/L Carbon Dioxide (22-30) mmol/L BUN (7-17) mg/dL Creatinine (0.52-1.04) mg/dL Glucose (74-99) mg/dL POC Glucose (mg/dL) 260 H (75-99) mg/dL Calcium (8.4-10.2) mg/dL Magnesium (1.6-2.3) mg/dL Iron (50-170) ug/dL TIBC (228-460) ug/dL % Saturation (12.00-45.00) Transferrin (204.0-354.0) mg/dL Ferritin (10.0-291.0) ng/mL Lactate Dehydrogenase (313-618) U/L Total Protein (PEP) (6.2-8.2) g/dL Urine Appearance Cloudy H (Clear) Urine Protein 1+ H (Negative) Urine Glucose (UA) 2+ H (Negative) Urine Blood Small H (Negative) Ur Leukocyte Esterase Large H (Negative) Urine RBC 9 H (0-5) /hpf Urine WBC 56 H (0-5) /hpf Ur Squamous Epith Cells 10 H (0-4) /hpf Urine Bacteria Moderate H (None) /hpf Urine Mucus Rare H (None) /hpf Stool Occult Blood (Negative) IgA (60.0-350.0) mg/dL 08/18/21 08/18/21 08/18/21 Range/Units 05:48 05:48 07:09 WBC 21.5 H (3.8-10.6) k/uL RBC 2.46 L (3.80-5.40) m/uL Hgb 7.7 L (11.4-16.0) gm/dL Hct 26.0 L (34.0-46.0) % MCV 105.6 H (80.0-100.0) fL MCHC 29.7 L (31.0-37.0) g/dL RDW 16.8 H (11.5-15.5) % Neutrophils # 18.8 H (1.3-7.7) k/uL Monocytes # 1.3 H (0-1.0) k/uL ESR (0-20) mm/hr Retic Count (0.5-2.0) % APTT (22.0-30.0) sec ABG pH (7.35-7.45) ABG pCO2 (35-45) mmHg ABG pO2 (83-108) mmHg ABG HCO3 (21-25) mmol/L ABG Total CO2 (19-24) mmol/L ABG O2 Saturation (94-97) % Chloride 110 H (98-107) mmol/L Carbon Dioxide 11 L (22-30) mmol/L BUN 62 H (7-17) mg/dL Creatinine 4.25 H (0.52-1.04) mg/dL Glucose 268 H (74-99) mg/dL POC Glucose (mg/dL) 274 H (75-99) mg/dL Calcium 7.8 L (8.4-10.2) mg/dL Magnesium 1.4 L (1.6-2.3) mg/dL Iron (50-170) ug/dL TIBC (228-460) ug/dL % Saturation (12.00-45.00) Transferrin (204.0-354.0) mg/dL Ferritin (10.0-291.0) ng/mL Lactate Dehydrogenase (313-618) U/L Total Protein (PEP) (6.2-8.2) g/dL Urine Appearance (Clear) Urine Protein (Negative) Urine Glucose (UA) (Negative) Urine Blood (Negative) Ur Leukocyte Esterase (Negative) Urine RBC (0-5) /hpf Urine WBC (0-5) /hpf Ur Squamous Epith Cells (0-4) /hpf Urine Bacteria (None) /hpf Urine Mucus (None) /hpf Stool Occult Blood (Negative) IgA (60.0-350.0) mg/dL Microbiology - Last 24 Hours (Table) 08/17/21 01:25 Blood Culture - Preliminary Blood No Growth after 24 hours 08/16/21 01:41 Blood Culture - Preliminary Blood No Growth after 24 hours 08/17/21 11:00 Urine Culture - Preliminary Urine,Voided
[2021-08-18] MEDS: AMIODARONE 450 MG in DEXTROSE 5% IN WATER 250 ML IV SCH ×4 (15:20)
[2021-08-18] MEDS: METOPROLOL TARTRATE 50 MG TAB PO SCH ×2 (15:40→22:52)
[2021-08-18] MEDS: FLUoxetine HCL 20 MG CAP PO SCH (15:41)
[2021-08-18 17:13] LABS: Glucose,Whole Blood 171 mg/dL (75-99)
--- NOTE | 2021-08-18 18:11 | P.PN ---
Subjective Progress Note Date: 08/18/21 Objective - Vital Signs Vital signs: Vital Signs Temp 98.2 F 08/18/21 16:00 Pulse 87 08/18/21 17:45 Resp 12 08/18/21 17:45 BP 103/67 08/18/21 17:45 Pulse Ox 96 08/18/21 17:45 Intake & Output 08/17/21 08/18/21 08/18/21 18:59 06:59 18:59 Intake Total 146.283 695.233 3598.308 Output Total 1410 580 Balance 146.283 -557.279 3463.308 Weight 97.522 kg Intake: IV 348 3216 Amiodarone 450 mg In 48 16 Dextrose 5% in Water 250 ml @ 0.5 MG/MIN 16.667 mls/hr IV .Q15H [facility] Rx#: [id number] Dextrose 5% in Water 1, 300 1200 000 ml @ 100 mls/hr IV . [id number] [facility] with Sodium Bicarb (1 Meq/ml) 150 ml Rx#:[id number] Sodium Chloride 0.9% 2, 2000 000 ml @ 999 mls/hr IV . Q2H1M [facility] Rx#:[id number] Intake, IV Titration 146.283 287.826 378.308 Amount Amiodarone 450 mg In 250 Dextrose 5% in Water 250 ml @ 0.5 MG/MIN 16.667 mls/hr IV .Q15H [facility] Rx#: [id number] Diltiazem 125 mg In 104.833 Sodium Chloride 0.9% 100 ml @ 5 MG/HR 5 mls/hr IV .Q24H [facility] Rx#:[id number] Heparin Sod,Pork in 0.45% 146.283 72.264 NaCl 25,000 unit In 0.45 % NaCl 1 250ml.bag @ 18 UNITS/KG/HR 17.554 mls/hr IV .[id number] [facility] Rx#: [id number] Norepinephrine 4 mg In 182.993 56.044 Sodium Chloride 0.9% 250 ml @ 0.05 MCG/KG/MIN 18. 578 mls/hr IV .[id number] [facility] Rx#:[id number] Oral 125 Output: Urine 1360 580 Stool 50 Other: Voiding Method Indwelling Catheter Indwelling Catheter - Exam Alert poor historian NAD Lung: Diminished bases Heart: Tachy Abd: Soft gen edema - Constitutional General appearance: Present: cooperative, no acute distress - Labs CBC & Chem 7: 08/18/21 05:48 08/18/21 05:48 Labs: Abnormal Lab Results - Last 24 Hours (Table) 08/17/21 08/17/21 08/17/21 Range/Units 14:23 14:23 14:23 WBC (3.8-10.6) k/uL RBC (3.80-5.40) m/uL Hgb (11.4-16.0) gm/dL Hct (34.0-46.0) % MCV (80.0-100.0) fL MCHC (31.0-37.0) g/dL RDW (11.5-15.5) % Neutrophils # (1.3-7.7) k/uL Monocytes # (0-1.0) k/uL APTT (22.0-30.0) sec Chloride (98-107) mmol/L Carbon Dioxide (22-30) mmol/L BUN (7-17) mg/dL Creatinine (0.52-1.04) mg/dL Glucose (74-99) mg/dL POC Glucose (mg/dL) (75-99) mg/dL Calcium (8.4-10.2) mg/dL Magnesium (1.6-2.3) mg/dL Iron 17 L (50-170) ug/dL TIBC 206 L (228-460) ug/dL % Saturation 8.41 L (12.00-45.00) Transferrin 147.0 L (204.0-354.0) mg/dL Ferritin 394.0 H (10.0-291.0) ng/mL Total Protein (PEP) 5.8 L (6.2-8.2) g/dL Urine Appearance (Clear) Urine Protein (Negative) Urine Glucose (UA) (Negative) Urine Blood (Negative) Ur Leukocyte Esterase (Negative) Urine RBC (0-5) /hpf Urine WBC (0-5) /hpf Ur Squamous Epith Cells (0-4) /hpf Urine Bacteria (None) /hpf Urine Mucus (None) /hpf Stool Occult Blood (Negative) IgA 655.0 H (60.0-350.0) mg/dL 0108/17/21 08/18/21 Range/Units 20:12 22:09 03:06 WBC 23.0 H 22.0 H (3.8-10.6) k/uL RBC 2.52 L 2.32 L (3.80-5.40) m/uL Hgb 7.8 L 7.3 L (11.4-16.0) gm/dL Hct 26.4 L 23.4 L (34.0-46.0) % MCV 104.7 H 100.9 H (80.0-100.0) fL MCHC 29.4 L (31.0-37.0) g/dL RDW 17.2 H 17.4 H (11.5-15.5) % Neutrophils # (1.3-7.7) k/uL Monocytes # (0-1.0) k/uL APTT (22.0-30.0) sec Chloride (98-107) mmol/L Carbon Dioxide (22-30) mmol/L BUN (7-17) mg/dL Creatinine (0.52-1.04) mg/dL Glucose (74-99) mg/dL POC Glucose (mg/dL) 161 H (75-99) mg/dL Calcium (8.4-10.2) mg/dL Magnesium (1.6-2.3) mg/dL Iron (50-170) ug/dL TIBC (228-460) ug/dL % Saturation (12.00-45.00) Transferrin (204.0-354.0) mg/dL Ferritin (10.0-291.0) ng/mL Total Protein (PEP) (6.2-8.2) g/dL Urine Appearance (Clear) Urine Protein (Negative) Urine Glucose (UA) (Negative) Urine Blood (Negative) Ur Leukocyte Esterase (Negative) Urine RBC (0-5) /hpf Urine WBC (0-5) /hpf Ur Squamous Epith Cells (0-4) /hpf Urine Bacteria (None) /hpf Urine Mucus (None) /hpf Stool Occult Blood (Negative) IgA (60.0-350.0) mg/dL 08/18/21 08/18/21 08/18/21 Range/Units 03:56 05:30 05:48 WBC 21.5 H (3.8-10.6) k/uL RBC 2.46 L (3.80-5.40) m/uL Hgb 7.7 L (11.4-16.0) gm/dL Hct 26.0 L (34.0-46.0) % MCV 105.6 H (80.0-100.0) fL MCHC 29.7 L (31.0-37.0) g/dL RDW 16.8 H (11.5-15.5) % Neutrophils # 18.8 H (1.3-7.7) k/uL Monocytes # 1.3 H (0-1.0) k/uL APTT (22.0-30.0) sec Chloride (98-107) mmol/L Carbon Dioxide (22-30) mmol/L BUN (7-17) mg/dL Creatinine (0.52-1.04) mg/dL Glucose (74-99) mg/dL POC Glucose (mg/dL) 260 H (75-99) mg/dL Calcium (8.4-10.2) mg/dL Magnesium (1.6-2.3) mg/dL Iron (50-170) ug/dL TIBC (228-460) ug/dL % Saturation (12.00-45.00) Transferrin (204.0-354.0) mg/dL Ferritin (10.0-291.0) ng/mL Total Protein (PEP) (6.2-8.2) g/dL Urine Appearance Cloudy H (Clear) Urine Protein 1+ H (Negative) Urine Glucose (UA) 2+ H (Negative) Urine Blood Small H (Negative) Ur Leukocyte Esterase Large H (Negative) Urine RBC 9 H (0-5) /hpf Urine WBC 56 H (0-5) /hpf Ur Squamous Epith Cells 10 H (0-4) /hpf Urine Bacteria Moderate H (None) /hpf Urine Mucus Rare H (None) /hpf Stool Occult Blood (Negative) IgA (60.0-350.0) mg/dL 08/18/21 08/18/21 08/18/21 Range/Units 05:48 07:09 13:02 WBC (3.8-10.6) k/uL RBC (3.80-5.40) m/uL Hgb (11.4-16.0) gm/dL Hct (34.0-46.0) % MCV (80.0-100.0) fL MCHC (31.0-37.0) g/dL RDW (11.5-15.5) % Neutrophils # (1.3-7.7) k/uL Monocytes # (0-1.0) k/uL APTT (22.0-30.0) sec Chloride 110 H (98-107) mmol/L Carbon Dioxide 11 L (22-30) mmol/L BUN 62 H (7-17) mg/dL Creatinine 4.25 H (0.52-1.04) mg/dL Glucose 268 H (74-99) mg/dL POC Glucose (mg/dL) 274 H 185 H (75-99) mg/dL Calcium 7.8 L (8.4-10.2) mg/dL Magnesium 1.4 L (1.6-2.3) mg/dL Iron (50-170) ug/dL TIBC (228-460) ug/dL % Saturation (12.00-45.00) Transferrin (204.0-354.0) mg/dL Ferritin (10.0-291.0) ng/mL Total Protein (PEP) (6.2-8.2) g/dL Urine Appearance (Clear) Urine Protein (Negative) Urine Glucose (UA) (Negative) Urine Blood (Negative) Ur Leukocyte Esterase (Negative) Urine RBC (0-5) /hpf Urine WBC (0-5) /hpf Ur Squamous Epith Cells (0-4) /hpf Urine Bacteria (None) /hpf Urine Mucus (None) /hpf Stool Occult Blood (Negative) IgA (60.0-350.0) mg/dL 08/18/21 08/18/21 08/18/21 Range/Units 13:30 15:39 17:12 WBC (3.8-10.6) k/uL RBC (3.80-5.40) m/uL Hgb (11.4-16.0) gm/dL Hct (34.0-46.0) % MCV (80.0-100.0) fL MCHC (31.0-37.0) g/dL RDW (11.5-15.5) % Neutrophils # (1.3-7.7) k/uL Monocytes # (0-1.0) k/uL APTT 21.7 L (22.0-30.0) sec Chloride (98-107) mmol/L Carbon Dioxide (22-30) mmol/L BUN (7-17) mg/dL Creatinine (0.52-1.04) mg/dL Glucose (74-99) mg/dL POC Glucose (mg/dL) 171 H (75-99) mg/dL Calcium (8.4-10.2) mg/dL Magnesium (1.6-2.3) mg/dL Iron (50-170) ug/dL TIBC (228-460) ug/dL % Saturation (12.00-45.00) Transferrin (204.0-354.0) mg/dL Ferritin (10.0-291.0) ng/mL Total Protein (PEP) (6.2-8.2) g/dL Urine Appearance (Clear) Urine Protein (Negative) Urine Glucose (UA) (Negative) Urine Blood (Negative) Ur Leukocyte Esterase (Negative) Urine RBC (0-5) /hpf Urine WBC (0-5) /hpf Ur Squamous Epith Cells (0-4) /hpf Urine Bacteria (None) /hpf Urine Mucus (None) /hpf Stool Occult Blood Positive H (Negative) IgA (60.0-350.0) mg/dL Microbiology - Last 24 Hours (Table) 08/17/21 11:00 Urine Culture - Preliminary Urine,Voided Group D Enterococcus Gram Neg Bacilli 08/17/21 01:25 Blood Culture - Preliminary Blood No Growth after 24 hours 08/16/21 01:41 Blood Culture - Preliminary Blood No Growth after 24 hours Assessment and Plan (1) DVT (deep venous thrombosis) Narrative/Plan: New Acute Extensive DVT - Unable to assess PE with COntrasted CT due to renal function - Assess for Antiphospholipid syndrome prior to AC determination since recent COVID infection Current Visit: Yes Status: Acute Code(s): I82.409 - ACUTE EMBOLISM AND THOMBOS UNSP DEEP VN UNSP LOWER EXTREMITY SNOMED Code(s): 936779733 (2) MGUS (monoclonal gammopathy of unknown significance) Current Visit: Yes Status: Acute Code(s): D47.2 - MONOCLONAL GAMMOPATHY SNOMED Code(s): 731176663 (3) Normocytic anemia Narrative/Plan: Saturation low 8%, Ferritin over 300 but maybe inaccurate due to time of draw. Current Visit: Yes Status: Acute Code(s): D64.9 - ANEMIA, UNSPECIFIED SNOMED Code(s): 144083355 (4) Acute abdominal pain Current Visit: No Status: Acute Code(s): R10.9 - UNSPECIFIED ABDOMINAL PAIN SNOMED Code(s): 696498389 (5) Leukocytosis Current Visit: No Status: Acute Code(s): D72.829 - ELEVATED WHITE BLOOD CELL COUNT, UNSPECIFIED SNOMED Code(s): 719606363 (6) Stage 3 chronic kidney disease due to benign hypertension Current Visit: No Status: Acute Code(s): I12.9 - HYPERTENSIVE CHRONIC KIDNEY DISEASE W STG 1-4/UNSP CHR KDNY; N18.30 - CHRONIC KIDNEY DISEASE, STAGE 3 UNSPECIFIED SNOMED Code(s): 080847052016688 (7) Hypotension Narrative/Plan: Septic work-up and Acute care per ER Current Visit: Yes Status: Acute Code(s): I95.9 - HYPOTENSION, UNSPECIFIED SNOMED Code(s): 29855915 (8) Acute kidney injury Narrative/Plan: Nephrology following Current Visit: Yes Status: Acute Code(s): N17.9 - ACUTE KIDNEY FAILURE, UNSPECIFIED SNOMED Code(s): 92320774 (9) Altered mental status Current Visit: Yes Status: Acute Code(s): R41.82 - ALTERED MENTAL STATUS, UNSPECIFIED SNOMED Code(s): 453047037 (10) Macrocytosis Narrative/Plan: B12 and Folate ordered Current Visit: Yes Status: Acute Code(s): D75.89 - OTHER SPECIFIED DISEASES OF BLOOD AND BLOOD-FORMING ORGANS SNOMED Code(s): 634675660 Plan: Full Consult will follow tomorrow At this time will repeat MGUS panel and Antiphospholipid Syndrome labs, if positive will need warfarin versus DOAC choice for anticoagulation due to evidence in literature. Also need to check for renal thrombosis if APL Syndrome picture going Another Consideration is if this is if this is a post COVID Antiphospholipid syndrome then consideration to microvascular clotting systemically including b rain\ - If concern presents MRA MRI would need for diagnosis No schistos Identified Monitor daily CBC and transfuse hemoglobin less than 7 GI evaluation for concern of component of anemia from GI blood loss. Currently under the care of ICU for all other acute management.
--- NOTE | 2021-08-18 18:44 | US ---
EXAMINATION TYPE: US pelvic complete DATE OF EXAM: 08/18/2021 COMPARISON: NONE CLINICAL HISTORY: Attention endometrial thickness. elderly ICU pt with intermittent vaginal bleeding, abn CT, patient had clamped shelton cath to try to assess pelvic structures, also has colostomy bag TECHNIQUE: TA. Transabdominal sonographic images of the pelvis were acquiredunable to TV due to p hysical and mental reasons Date of LMP: 25+yrs EXAM MEASUREMENTS: Uterus: 10.3 x 4.6 x 5.1 cm Endometrial Stripe: unable to discern Right Ovary: 5.2 x 4.9 x 4.9 cm Left Ovary: not seen 1. Uterus: Anteverted appearance of partially calcified fundal les no free fluid. Ion that may rep resent a fibroid = 4.9 x 4.2 x 4.2cm 2. Endometrium: unable to discern due to fundal lesion obscures view 3. Right Ovary: enlarged ovary appears to have cystic and solid components within 4. Left Ovary: not seen due to bowel gas and or atrophy 5. Bilateral Adnexa: wnl 6. Posterior cul-de-sac: wnl IMPRESSION: there is 5 cm complex cyst involving the right ovary. Uterine fibroid. Left ovary not seen.
--- NOTE | 2021-08-18 20:09 | PN ---
PROGRESS NOTE Natalia Yuen is a patient with acute kidney injury, sepsis, atrial fibrillation, RVR. Her echocardiogram from today revealed that ejection fraction is well preserved and there is also no evidence of any significant pulmonary hypertension. However, she is in atrial fibrillation. Rate is much better controlled. She is on metoprolol tartrate 50 mg b.i.d. and also on IV amiodarone. We will continue the amiodarone and beta bryan combination. Rate control is fair. Vitals are stable. JVD not evident. S1- S2 heard normally. Irregular rhythm noted. Short systolic murmur noted. Lungs reveal diminished air entry. Abdomen is soft. Lower extremities reveal diminished pulses. Prognosis remains guarded. She had a recent uterine pelvic mass explorative laparotomy with a colectomy and ileostomy. She has E coli urinary tract infection as well. She is currently on Levaquin and Zosyn combination, awaiting final urine cultures. Prognosis remains poor, but cardiac-neely we will continue current medical regimen. MMODL / IJN: [id number] /
[2021-08-18 21:18] LABS: Glucose,Whole Blood 67 mg/dL (75-99)
[2021-08-18] MEDS: PIPERACILLIN-TAZOBACTAM 3.375 GM in SODIUM CHLORIDE 0.9% 100 ML IVPB SCH (21:32)
[2021-08-18 21:43] LABS: Glucose,Whole Blood 75 mg/dL (75-99)
[2021-08-18] MEDS: PRAVASTATIN SODIUM 40 MG TAB PO SCH (22:52)
[2021-08-19] MEDS: NOREPINEPHRINE 4 MG in SODIUM CHLORIDE 0.9% 250 ML IV SCH ×2 (02:59→08:42)
[2021-08-19 03:11] LABS: Glucose,Whole Blood 108 mg/dL (75-99)
[2021-08-19 08:20] LABS: Glucose,Whole Blood 143 mg/dL (75-99)
[2021-08-19] MEDS: HEPARIN SOD,PORK IN 0.45% NACL 25,000 UNIT in 0.45% NACL 1 250ML.BAG IV SCH (08:22)
--- NOTE | 2021-08-19 08:25 | P.CON ---
Consult Note - . Consult date: 08/19/21 Assessment/Plan:: This is a 80-year-old white female 5 para 5 who was readmitted on 08/16/1991 to the intensive care unit with urosepsis, kidney failure, atrial fibrillation. She is status post hospitalization 3 weeks ago for cold that positive testing, weakness, episodes of vomiting. She is also status post exploratory laparotomy with right and ileostomy and umbilical hernia repair per Dr. Bailey in May of this year. I was asked to see the patient regarding suggestion of a pelvic mass. Pelvic ultrasound yesterday reveals a uterus measuring 10.3 x 4.6 x 5.1 cm, heterogenous appearing texture, right ovary measuring 5.2 x 4.9 x 4.9 cm, left ovary within normal limits. No free fluid in the pelvis. Endometrial stripe is unable to be discerned. Past medical history is significant for heart failure, atrial fibrillation, diabetes mellitus, hypertension, osteoarthritis, hyperlipidemia, renal disease, and recent bowel obstruction. Social history patient is a former smoker, she denies alcohol or drug use. Psychological history is significant for anxiety and depression. Family history patient states she has 2 brothers and 1 sister who of cancer, etiology uncertain. Father with industrial exposure at the age of 42, mother lived to age 94. Patient is unable to recall any specific cancers of the ovary, cervix, uterus, colon or breast. Past surgical history significant for cholecystectomy, sections, and recent right and ileostomy and umbilical hernia repair. Current medications are many, including levothyroid for blood pressure stabilization and Amaryl around. Heparin was placed on hold [address] Aggarwal. Patient is also on pelvic with 2.5 mg twice daily. She is receiving insulin for blood pressure control, Norvasc, Lopressor, Prozac, due to pain on, and triple antibiotics. ALLERGIES include codeine to which reports nausea and vomiting. Past [employer] history is significant for vaginal deliveries as well as section, patient states last pelvic exam and Pap smear were many years ago. Last mammogram also in the remote past. Patient denies recent vaginal bleeding. On exam patient is 5 foot 4 inches, 78 kg, blood pressure 105/52, rhythm consistent with atrial fibrillation. She has poor dentition. No obvious thyromegaly. The abdomen is obese with a moderate pannus. There is an ileostomy bag with brown liquid stool that is suspicious for blood. The abdomen is soft and otherwise nontender. No obvious pelvic masses, no rebound or guarding. No CVA tenderness. Breast exam reveals atrophic breasts bilaterally, no nipple discharge, skin lesions, axillary adenopathy, or discernible lesions or masses. Cardiac exam reveals atrial fibrillation. Chest is otherwise clear to auscultation. On pelvic examination there is no obvious blood in the brief. Cervix is slightly irregular to palpation. Patient is uncomfortable to pelvic examination. Uterus is mildly enlarged, anteverted, mobile, tender. Right adnexa is also tender, difficult to ascertain but mildly enlarged clinically. In withdrawing the glove there is obviously red mucoid blood on the examining fingers. Recent hemoglobin 7.7, decreased from 9.7 on admission 08/16/2021. White blood count remains elevated at 21.5. Other lab disc or sees being followed medically. These include elevated BUN/creatinine, elevated glucose. Impression: A 80-year-old female with mildly enlarged uterus sonographically and clinically, heterogenous texture, and bright red blood on the examining hand this morning per vagina. Patient is in atrial fibrillation, is hypotensive on levophed, and in active urosepsis. In addition, there is a suggestion of dark blood per ileostomy output, and coffee ground emesis. Plan: Ultimately the patient will need from a gynecologic perspective a Pap smear, hysteroscopy, and dilatation and curettage of the uterus. I've discussed the case with Dr. Robbins of cardiology, who does not feel patient is stable for surgery at this time. It could certainly be performed as an outpatient pending patient's clinical status. I've discussed the case with her son Yanick Lopez, and explained the issues from a gynecologic perspective. I will also discuss the case with Dr. Anderson, campus security officer following. Thank you for the consultation.
[2021-08-19] MEDS: DEXTROSE 5% IN WATER 1,000 ML with SODIUM BICARB (1 MEQ/ML) 150 ML IV SCH (08:42)
[2021-08-19] MEDS: INSULIN ASPART (NovoLOG) 100 UNIT/ML VIAL SQ SCH ×6 (08:43→20:34)
[2021-08-19] MEDS: LEVOFLOXACIN 500MG-D5W PMX 500 MG in DEXTROSE/WATER 1 100ML.BAG IVPB SCH (08:46)
[2021-08-19] MEDS: PANTOPRAZOLE 40 MG/10 ML VIAL IVP SCH ×2 (08:46→20:47)
[2021-08-19] MEDS: FLUoxetine HCL 20 MG CAP PO SCH (08:47)
[2021-08-19] MEDS: METOPROLOL TARTRATE 50 MG TAB PO SCH ×2 (08:47→20:48)
[2021-08-19] MEDS: FAMOTIDINE 20 MG/2 ML VIAL IV SCH (08:47)
[2021-08-19] MEDS: PIPERACILLIN-TAZOBACTAM 3.375 GM in SODIUM CHLORIDE 0.9% 100 ML IVPB SCH ×2 (08:48→20:48)
[2021-08-19 09:00] LABS: Albumin 2.1 g/dL (3.5-5.0); Calcium 7.3 mg/dL (8.4-10.2); Magnesium 1.7 mg/dL (1.6-2.3); Potassium 3.8 mmol/L (3.5-5.1); Total Bilirubin 0.5 mg/dL (0.2-1.3)
[2021-08-19 09:05] LABS: Anisocytosis Slight; Basophils % (A) 0 %; Eosinophils # (A) 0.2 k/uL (0-0.7); Eosinophils % (A) 1 %; HCT 21.7 % (34.0-46.0); Hypochromasia Moderate; Lymphocytes # (A) 1.5 k/uL (1.0-4.8); Lymphocytes % (A) 9 %; MCH 30.8 pg (25.0-35.0); Macrocytosis Slight; Monocytes # (A) 0.9 k/uL (0-1.0); Monocytes % (A) 5 %; Neutrophils # (A) 13.8 k/uL (1.3-7.7); Neutrophils % (A) 84 %; Platelet Count 199 k/uL (150-450); RBC 2.18 m/uL (3.80-5.40); RDW 17.5 % (11.5-15.5); WBC 16.5 k/uL (3.8-10.6)
[2021-08-19 09:09] LABS: HGB 6.7 gm/dL (11.4-16.0); MCV 99.4 fL (80.0-100.0)
--- NOTE | 2021-08-19 09:27 | P.PN ---
Subjective Patient is seen in follow-up for acute kidney injury on chronic kidney disease. Renal function improving. On room air. On vasopressor support. Receiving IV fluids. Nonoliguric. Vital signs are stable - on vasopressor support. HEENT: Head exam is unremarkable. LUNGS:Breath sounds decreased. HEART: Irregular rate and rhythm. ABDOMEN: Soft, no distention. EXTREMITITES: No edema. Objective - Vital Signs Vital signs: Vital Signs Temp 98.1 F 08/19/21 05:00 Pulse 73 08/19/21 07:15 Resp 17 08/19/21 07:15 BP 110/68 08/19/21 07:15 Pulse Ox 93 L 08/19/21 07:15 Intake & Output 08/18/21 08/19/21 08/19/21 18:59 06:59 18:59 Intake Total 3719.308 1847.331 295.17 Output Total 580 515 45 Balance 3139.308 1332.331 250.17 Weight 97.522 kg 78 kg Intake: IV 3216 1300 100 Amiodarone 450 mg In 16 Dextrose 5% in Water 250 ml @ 0.5 MG/MIN 16.667 mls/hr IV .Q15H [facility] Rx#: [id number] Dextrose 5% in Water 1, 1200 1200 100 000 ml @ 100 mls/hr IV . [id number] [facility] with Sodium Bicarb (1 Meq/ml) 150 ml Rx#:[id number] Piperacillin-Tazobactam 3 100 .375 gm In Sodium Chloride 0.9% 100 ml @ 25 mls/hr IVPB Q12HR [facility] Rx #:[id number] Sodium Chloride 0.9% 2, 2000 000 ml @ 999 mls/hr IV . Q2H1M [facility] Rx#:[id number] Intake, IV Titration 378.308 447.331 195.17 Amount Amiodarone 450 mg In 250 Dextrose 5% in Water 250 ml @ 0.5 MG/MIN 16.667 mls/hr IV .Q15H [facility] Rx#: [id number] Heparin Sod,Pork in 0.45% 72.264 NaCl 25,000 unit In 0.45 % NaCl 1 250ml.bag @ 18 UNITS/KG/HR 17.554 mls/hr IV .[id number] [facility] Rx#: [id number] Norepinephrine 4 mg In 56.044 447.331 195.17 Sodium Chloride 0.9% 250 ml @ 0.05 MCG/KG/MIN 18. 578 mls/hr IV .[id number] [facility] Rx#:[id number] Oral 125 Tube Feeding 100 Output: Urine 580 440 45 Stool 75 Other: Voiding Method Indwelling Catheter Indwelling Catheter - Labs CBC & Chem 7: 08/19/21 08:20 08/19/21 08:20 Labs: Abnormal Lab Results - Last 24 Hours (Table) 08/18/21 08/18/21 08/18/21 Range/Units 13:02 13:30 15:39 WBC (3.8-10.6) k/uL RBC (3.80-5.40) m/uL Hgb (11.4-16.0) gm/dL Hct (34.0-46.0) % RDW (11.5-15.5) % Neutrophils # (1.3-7.7) k/uL APTT 21.7 L (22.0-30.0) sec BUN (7-17) mg/dL Creatinine (0.52-1.04) mg/dL Glucose (74-99) mg/dL POC Glucose (mg/dL) 185 H (75-99) mg/dL Calcium (8.4-10.2) mg/dL Alkaline Phosphatase (38-126) U/L Total Protein (6.3-8.2) g/dL Albumin (3.5-5.0) g/dL Stool Occult Blood Positive H (Negative) 08/18/21 08/18/21 08/19/21 Range/Units 17:12 21:17 03:09 WBC (3.8-10.6) k/uL RBC (3.80-5.40) m/uL Hgb (11.4-16.0) gm/dL Hct (34.0-46.0) % RDW (11.5-15.5) % Neutrophils # (1.3-7.7) k/uL APTT (22.0-30.0) sec BUN (7-17) mg/dL Creatinine (0.52-1.04) mg/dL Glucose (74-99) mg/dL POC Glucose (mg/dL) 171 H 67 L 108 H (75-99) mg/dL Calcium (8.4-10.2) mg/dL Alkaline Phosphatase (38-126) U/L Total Protein (6.3-8.2) g/dL Albumin (3.5-5.0) g/dL Stool Occult Blood (Negative) 08/19/21 08/19/21 08/19/21 Range/Units 08:19 08:20 08:20 WBC 16.5 H (3.8-10.6) k/uL RBC 2.18 L (3.80-5.40) m/uL Hgb 6.7 L* (11.4-16.0) gm/dL Hct 21.7 L (34.0-46.0) % RDW 17.5 H (11.5-15.5) % Neutrophils # 13.8 H (1.3-7.7) k/uL APTT (22.0-30.0) sec BUN 49 H (7-17) mg/dL Creatinine 3.56 H (0.52-1.04) mg/dL Glucose 139 H (74-99) mg/dL POC Glucose (mg/dL) 143 H (75-99) mg/dL Calcium 7.3 L (8.4-10.2) mg/dL Alkaline Phosphatase 165 H (38-126) U/L Total Protein 5.0 L (6.3-8.2) g/dL Albumin 2.1 L (3.5-5.0) g/dL Stool Occult Blood (Negative) Microbiology - Last 24 Hours (Table) 08/17/21 01:25 Blood Culture - Preliminary Blood No Growth after 48 hours 08/16/21 01:41 Blood Culture - Preliminary Blood No Growth after 48 hours 08/17/21 11:00 Urine Culture - Preliminary Urine,Voided Group D Enterococcus Gram Neg Bacilli Assessment and Plan Plan: Assessment: 1. Acute kidney injury mostly prerenal secondary to hypovolemia and hemodynamic instability. Creatinine 4.84 on admission - 3.56 today. No hydronephrosis noted on CAT scan. 2. Chronic kidney disease stage IIIa with baseline creatinine in the range of 1.3-1.5 secondary to diabetic kidney disease. 3. Left lower extremity DVT maintained on heparin drip. 4. A. fib with RVR maintained on metoprolol. 5. Metabolic acidosis secondary to acute kidney injury. Improved with bicarbonate drip. 6. Diabetes mellitus. 7. Hypomagnesemia from poor intake. Replaced. Better. 8. Septic shock secondary to UTI. Urine culture positive for enterococcus. 9. Acute blood loss anemia. Hemoglobin 6.7 today. Blood transfusion has been ordered. Plan: Stop bicarb drip. Start normal saline at 75 mL an hour. Avoid nephrotoxins. Preserved ejection fraction. Continue to monitor renal function and urine output. Wean Levophed. 1 g IV magnesium today
[2021-08-19] MEDS ORDERED: MAGNESIUM SULFATE-D5W PMX 1 GM in DEXTROSE/WATER 1 100ML.BAG IVPB ONE (09:30)
[2021-08-19] MEDS: SODIUM CHLORIDE 0.9% 1,000 ML IV SCH (11:05)
--- NOTE | 2021-08-19 11:06 | P.PN ---
<YsabelkofiMarisa - Last Filed: 08/19/21 10:52> Subjective Progress Note Date: 08/19/21 CHIEF COMPLAINT: GI bleed HISTORY OF PRESENT ILLNESS: Patient admitted to the hospital with mental status changes. She's currently in the ICU. Patient also had 1 episode of coffee- ground emesis prior to admission. No further emesis reported. Patient has had no abdominal pain. Patient's stool for occult blood was positive. IV heparin was discontinued. Hemoglobin did drop from 7.7-6.7. She is receiving 1 unit of blood. Patient also has received IV fluids due to hypotension. She is now on Levophed. 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 She has a DVT in the left lower extremity and new onset of atrial fibrillation. Patient seen by NETWORK OPERATIONS MANAGER service. Pelvic ultrasound shows a 5 cm complex cyst involving the right ovary. Uterine fibroid. NETWORK OPERATIONS MANAGER service recommending Pap smear, hysteroscopy and D&C of the uterus and plan to proceed with this outpatient since patient was not stable enough for surgery at this time. PHYSICAL EXAM: VITAL SIGNS: Reviewed. GENERAL: Well-developed in no acute distress. HEENT: No sclera icterus. Extraocular movements grossly intact. Moist buccal mucosa. Head is atraumatic, normocephalic. ABDOMEN: Soft. Nondistended. Nontender. Ileostomy output is bilious in color NEUROLOGIC: Awake. Confused. ASSESSMENT: 1. Acute GI bleed. Stool for occult blood positive. Episode of coffee-ground emesis on admission. Output through ileostomy is currently bilious in color. 2. Acute on chronic Anemia with acute blood loss anemia 3. Enlarged uterus. NETWORK OPERATIONS MANAGER following 4. Altered mental status 5. DVT left leg 6. A. fib PLAN: -Agree with blood transfusion -Continue to monitor closely for signs or symptoms of GI bleeding -Continue to monitor hemoglobin -Further recommendations forthcoming per surgeon -Continue ICU management and supportive care Physician Car Sealer note has been reviewed by physician. Signing provider agrees with the documented findings, assessment, and plan of care. Objective - Vital Signs Vital signs: Vital Signs Temp 98.1 F 08/19/21 05:00 Pulse 73 08/19/21 07:15 Resp 17 08/19/21 07:15 BP 110/68 08/19/21 07:15 Pulse Ox 93 L 08/19/21 07:15 Intake & Output 08/18/21 08/19/21 08/19/21 18:59 06:59 18:59 Intake Total 3719.308 1847.331 295.17 Output Total 580 515 45 Balance 3139.308 1332.331 250.17 Weight 97.522 kg 78 kg Intake: IV 3216 1300 100 Amiodarone 450 mg In 16 Dextrose 5% in Water 250 ml @ 0.5 MG/MIN 16.667 mls/hr IV .Q15H [facility] Rx#: [id number] Dextrose 5% in Water 1, 1200 1200 100 000 ml @ 100 mls/hr IV . [id number] [facility] with Sodium Bicarb (1 Meq/ml) 150 ml Rx#:[id number] Piperacillin-Tazobactam 3 100 .375 gm In Sodium Chloride 0.9% 100 ml @ 25 mls/hr IVPB Q12HR [facility] Rx #:[id number] Sodium Chloride 0.9% 2, 2000 000 ml @ 999 mls/hr IV . Q2H1M [facility] Rx#:[id number] Intake, IV Titration 378.308 447.331 195.17 Amount Amiodarone 450 mg In 250 Dextrose 5% in Water 250 ml @ 0.5 MG/MIN 16.667 mls/hr IV .Q15H [facility] Rx#: [id number] Heparin Sod,Pork in 0.45% 72.264 NaCl 25,000 unit In 0.45 % NaCl 1 250ml.bag @ 18 UNITS/KG/HR 17.554 mls/hr IV .[id number] [facility] Rx#: [id number] Norepinephrine 4 mg In 56.044 447.331 195.17 Sodium Chloride 0.9% 250 ml @ 0.05 MCG/KG/MIN 18. 578 mls/hr IV .[id number] [facility] Rx#:[id number] Oral 125 Tube Feeding 100 Output: Urine 580 440 45 Stool 75 Other: Voiding Method Indwelling Catheter Indwelling Catheter - Labs CBC & Chem 7: 08/19/21 08:20 08/19/21 08:20 Labs: Abnormal Lab Results - Last 24 Hours (Table) 08/18/21 08/18/21 08/18/21 Range/Units 13:02 13:30 15:39 WBC (3.8-10.6) k/uL RBC (3.80-5.40) m/uL Hgb (11.4-16.0) gm/dL Hct (34.0-46.0) % RDW (11.5-15.5) % Neutrophils # (1.3-7.7) k/uL APTT 21.7 L (22.0-30.0) sec BUN (7-17) mg/dL Creatinine (0.52-1.04) mg/dL Glucose (74-99) mg/dL POC Glucose (mg/dL) 185 H (75-99) mg/dL Calcium (8.4-10.2) mg/dL Alkaline Phosphatase (38-126) U/L Total Protein (6.3-8.2) g/dL Albumin (3.5-5.0) g/dL Stool Occult Blood Positive H (Negative) 08/18/21 08/18/21 08/19/21 Range/Units 17:12 21:17 03:09 WBC (3.8-10.6) k/uL RBC (3.80-5.40) m/uL Hgb (11.4-16.0) gm/dL Hct (34.0-46.0) % RDW (11.5-15.5) % Neutrophils # (1.3-7.7) k/uL APTT (22.0-30.0) sec BUN (7-17) mg/dL Creatinine (0.52-1.04) mg/dL Glucose (74-99) mg/dL POC Glucose (mg/dL) 171 H 67 L 108 H (75-99) mg/dL Calcium (8.4-10.2) mg/dL Alkaline Phosphatase (38-126) U/L Total Protein (6.3-8.2) g/dL Albumin (3.5-5.0) g/dL Stool Occult Blood (Negative) 08/19/21 08/19/21 08/19/21 Range/Units 08:19 08:20 08:20 WBC 16.5 H (3.8-10.6) k/uL RBC 2.18 L (3.80-5.40) m/uL Hgb 6.7 L* (11.4-16.0) gm/dL Hct 21.7 L (34.0-46.0) % RDW 17.5 H (11.5-15.5) % Neutrophils # 13.8 H (1.3-7.7) k/uL APTT (22.0-30.0) sec BUN 49 H (7-17) mg/dL Creatinine 3.56 H (0.52-1.04) mg/dL Glucose 139 H (74-99) mg/dL POC Glucose (mg/dL) 143 H (75-99) mg/dL Calcium 7.3 L (8.4-10.2) mg/dL Alkaline Phosphatase 165 H (38-126) U/L Total Protein 5.0 L (6.3-8.2) g/dL Albumin 2.1 L (3.5-5.0) g/dL Stool Occult Blood (Negative) Microbiology - Last 24 Hours (Table) 08/17/21 01:25 Blood Culture - Preliminary Blood No Growth after 48 hours 08/16/21 01:41 Blood Culture - Preliminary Blood No Growth after 48 hours 08/17/21 11:00 Urine Culture - Preliminary Urine,Voided Group D Enterococcus Gram Neg Bacilli <Arash Bailey - Last Filed: 08/19/21 13:39> Subjective I have personally seen and examined the patient, reviewed the TEAM PRIMARY CARE PHYSICIAN /PAs history, exam and MDM and agree with the assessment and plan as written. Based on total visit time, I have performed more than 50% of the visit. As above. Patient doing well today. Slightly confused. No active bleeding. Agree with transfusion. Agree with gynecologic workup. Increase diet as tolerated. Objective - Vital Signs Vital signs: Vital Signs Temp 98.3 F 08/19/21 08:30 Pulse 68 08/19/21 11:00 Resp 36 H 08/19/21 11:00 BP 106/41 08/19/21 11:00 Pulse Ox 93 L 08/19/21 11:00 Intake & Output 08/18/21 08/19/21 08/19/21 18:59 06:59 18:59 Intake Total 3719.308 5374.766 6323.492 Output Total 580 515 295 Balance 3139.308 1332.331 723.492 Weight 97.522 kg 78 kg Intake: IV 3216 1300 400 Amiodarone 450 mg In 16 Dextrose 5% in Water 250 ml @ 0.5 MG/MIN 16.667 mls/hr IV .Q15H [facility] Rx#: [id number] Dextrose 5% in Water 1, 1200 1200 300 000 ml @ 100 mls/hr IV . [id number] [facility] with Sodium Bicarb (1 Meq/ml) 150 ml Rx#:[id number] Piperacillin-Tazobactam 3 100 100 .375 gm In Sodium Chloride 0.9% 100 ml @ 25 mls/hr IVPB Q12HR [facility] Rx #:[id number] Sodium Chloride 0.9% 2, 2000 000 ml @ 999 mls/hr IV . Q2H1M [facility] Rx#:[id number] Intake, IV Titration 378.308 447.331 618.492 Amount Amiodarone 450 mg In 250 Dextrose 5% in Water 250 ml @ 0.5 MG/MIN 16.667 mls/hr IV .Q15H [facility] Rx#: [id number] Heparin Sod,Pork in 0.45% 72.264 NaCl 25,000 unit In 0.45 % NaCl 1 250ml.bag @ 18 UNITS/KG/HR 17.554 mls/hr IV .[id number] [facility] Rx#: [id number] Levofloxacin 500Mg-D5w 100 Pmx 500 mg In Dextrose/ Water 1 100ml.bag @ 100 mls/hr IVPB Q48H [facility] Rx#: [id number] Magnesium Sulfate-D5w Pmx 100 1 gm In Dextrose/Water 1 100ml.bag @ 100 mls/hr IVPB ONCE [facility] Rx#: [id number] Norepinephrine 4 mg In 56.044 447.331 268.492 Sodium Chloride 0.9% 250 ml @ 0.05 MCG/KG/MIN 18. 578 mls/hr IV .[id number] [facility] Rx#:[id number] Sodium Chloride 0.9% 1, 150 000 ml @ 75 mls/hr IV . [id number] [facility] Rx#:[id number] Oral 125 Tube Feeding 100 Output: Urine 580 440 295 Stool 75 Other: Voiding Method Indwelling Catheter Indwelling Catheter Indwelling Catheter - Labs CBC & Chem 7: 08/19/21 08:20 08/19/21 08:20 Labs: Abnormal Lab Results - Last 24 Hours (Table) 08/17/21 08/17/21 08/18/21 Range/Units 14:23 14:23 13:30 WBC (3.8-10.6) k/uL RBC (3.80-5.40) m/uL Hgb (11.4-16.0) gm/dL Hct (34.0-46.0) % RDW (11.5-15.5) % Neutrophils # (1.3-7.7) k/uL APTT (22.0-30.0) sec Lupus Anticoag aPTT >180 H (<43) Sec(s) Lupus Anticoag PTT Mix >180 H (<43) Sec(s) Dil Noel Viper Venom 104 H (<44) Sec(s) LA dRVVT Confirm Positive A (Negative) dRVVT 50:50 59 H (<44) Sec(s) Lupus Hexagonal Phase Positive A (Negative) BUN (7-17) mg/dL Creatinine (0.52-1.04) mg/dL Glucose (74-99) mg/dL POC Glucose (mg/dL) (75-99) mg/dL Calcium (8.4-10.2) mg/dL Alkaline Phosphatase (38-126) U/L Total Protein (6.3-8.2) g/dL Albumin (3.5-5.0) g/dL Albumin (PEP) 2.12 L (3.80-4.90) g/dL Vmmzn-1-Tutaqhxjm 0.56 H (0.10-0.40) g/dL Stool Occult Blood Positive H (Negative) Crossmatch 08/18/21 08/18/21 08/18/21 Range/Units 15:39 17:12 21:17 WBC (3.8-10.6) k/uL RBC (3.80-5.40) m/uL Hgb (11.4-16.0) gm/dL Hct (34.0-46.0) % RDW (11.5-15.5) % Neutrophils # (1.3-7.7) k/uL APTT 21.7 L (22.0-30.0) sec Lupus Anticoag aPTT (<43) Sec(s) Lupus Anticoag PTT Mix (<43) Sec(s) Dil Noel Viper Venom (<44) Sec(s) LA dRVVT Confirm (Negative) dRVVT 50:50 (<44) Sec(s) Lupus Hexagonal Phase (Negative) BUN (7-17) mg/dL Creatinine (0.52-1.04) mg/dL Glucose (74-99) mg/dL POC Glucose (mg/dL) 171 H 67 L (75-99) mg/dL Calcium (8.4-10.2) mg/dL Alkaline Phosphatase (38-126) U/L Total Protein (6.3-8.2) g/dL Albumin (3.5-5.0) g/dL Albumin (PEP) (3.80-4.90) g/dL Vbwcw-8-Armouovba (0.10-0.40) g/dL Stool Occult Blood (Negative) Crossmatch 08/19/21 08/19/21 08/19/21 Range/Units 03:09 08:19 08:20 WBC (3.8-10.6) k/uL RBC (3.80-5.40) m/uL Hgb (11.4-16.0) gm/dL Hct (34.0-46.0) % RDW (11.5-15.5) % Neutrophils # (1.3-7.7) k/uL APTT (22.0-30.0) sec Lupus Anticoag aPTT (<43) Sec(s) Lupus Anticoag PTT Mix (<43) Sec(s) Dil Noel Viper Venom (<44) Sec(s) LA dRVVT Confirm (Negative) dRVVT 50:50 (<44) Sec(s) Lupus Hexagonal Phase (Negative) BUN 49 H (7-17) mg/dL Creatinine 3.56 H (0.52-1.04) mg/dL Glucose 139 H (74-99) mg/dL POC Glucose (mg/dL) 108 H 143 H (75-99) mg/dL Calcium 7.3 L (8.4-10.2) mg/dL Alkaline Phosphatase 165 H (38-126) U/L Total Protein 5.0 L (6.3-8.2) g/dL Albumin 2.1 L (3.5-5.0) g/dL Albumin (PEP) (3.80-4.90) g/dL Rfukb-0-Vckczfkwz (0.10-0.40) g/dL Stool Occult Blood (Negative) Crossmatch 0108/19/21 08/19/21 Range/Units 08:20 09:43 11:17 WBC 16.5 H (3.8-10.6) k/uL RBC 2.18 L (3.80-5.40) m/uL Hgb 6.7 L* (11.4-16.0) gm/dL Hct 21.7 L (34.0-46.0) % RDW 17.5 H (11.5-15.5) % Neutrophils # 13.8 H (1.3-7.7) k/uL APTT (22.0-30.0) sec Lupus Anticoag aPTT (<43) Sec(s) Lupus Anticoag PTT Mix (<43) Sec(s) Dil Noel Viper Venom (<44) Sec(s) LA dRVVT Confirm (Negative) dRVVT 50:50 (<44) Sec(s) Lupus Hexagonal Phase (Negative) BUN (7-17) mg/dL Creatinine (0.52-1.04) mg/dL Glucose (74-99) mg/dL POC Glucose (mg/dL) 150 H (75-99) mg/dL Calcium (8.4-10.2) mg/dL Alkaline Phosphatase (38-126) U/L Total Protein (6.3-8.2) g/dL Albumin (3.5-5.0) g/dL Albumin (PEP) (3.80-4.90) g/dL Yyyse-5-Fxapitiuc (0.10-0.40) g/dL Stool Occult Blood (Negative) Crossmatch See Detail Microbiology - Last 24 Hours (Table) 08/17/21 01:25 Blood Culture - Preliminary Blood No Growth after 48 hours 08/16/21 01:41 Blood Culture - Preliminary Blood No Growth after 48 hours 08/17/21 11:00 Urine Culture - Preliminary Urine,Voided Group D Enterococcus Gram Neg Bacilli
[2021-08-19 11:19] LABS: Glucose,Whole Blood 150 mg/dL (75-99)
--- NOTE | 2021-08-19 11:36 | P.PN ---
Subjective Progress Note Date: 08/19/21 Principal diagnosis: Atrial fibrillation. On 08/18/2000 patient seen in follow-up in the intensive care unit, she is currently awake and alert, in no acute distress, breathing comfortably, she is on 2 L of oxygen pulse ox is 97-98%, she is answering questions improperly, she denies any acute distress, she remains in atrial fibrillation with a rate of 117 BPM, she is currently on norepinephrine drip. 0.05 mics per kilo per minute, D5W with 3 A of bicarbonate at 100 ML per hour, amiodarone drip is at 0.5 mg/h. Patient is supposed to be restarted on heparin infusion as well after surgical clearance. Her VQ scan showed low probability of PE, patient was found to have left lower extremity DVT. Lung sounds are clear, diminished at the bases, no cough, no congestion, no complaints of chest pain, she remains on combination of antibiotics with Levaquin and Zosyn. Her urine and blood cultures have been negative. CT chest abdomen and pelvis showed mild atelectasis and scarring in the right lung base, no pleural effusion, no pericardial effusion no aneurysm, no hilar masses. There was no evidence of bowel obstruction. No mesenteric edema, no ascites or free air. 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 Echocardiogram has been reviewed showing preserved LV function with EF of 65-70%, mildly enlarged right ventricle, no aortic stenosis or regurgitation, mild tricuspid regurg, mild pulmonary hypertension with right- sided pressure of 37 mmHg. Patient is still on fairly high amount of vasopressors. Beckett catheter is in place, and patient is producing urine in the order of 30-40 mL per hour, her right-sided ileostomy is producing normal amount of greenish liquid stool. Colostomy is not bringing out any output. His labs have been reviewed, her white blood cell count is slightly improved and is currently at 21.5, hemoglobin is 7.7, sodium is 137, potassium is 4.8, chloride is 110, CO2 is 11, BUN 62, creatinine is 4.25. Renal profile is slightly improved compared to last couple of days. Nephrology services are following. Patient does have a recent history of "with 19 infection, her LDH from 08/17/2020 was 1002, and CRP it has not been checked, pro-calcitonin level is 1.5, and urinalysis showed evidence of acute urinary tract infection. Progress note dated 08/19/2021. The patient is again seen in the intensive care unit, room 264. The patient's currently on room air. She's getting dextrose, with 3 ampules of sodium bicarbonate at 100 mL an hour. She is on norepinephrine at 6 mcg/m. She is also getting saline at 75 mL an hour. Hemoglobin is 6.7. We've ordered 1 unit of packed red blood cells. We'll DC the bicarbonate drip. We'll ask for a cortisol level and a TSH, which might possibly explain her ongoing hypotension. Her urine sampling is showing group D enterococcus, and gram-negative bacilli. She remains on Zosyn and Levaquin. I was called by Dr. Downing, who did a pelvic examination on the patient. When she removed her gloved hand from the vault, it was full of blood, and the patient is to have a possible gynecologic malignancy. The patient should eventually have a D&C, and hysteroscopy, but is currently unstable for those procedures. White count is 16.5, hemoglobin 6.7, hematocrit 21.7, and platelet count 199,000. Sodium, potassium, chloride, CO2, anion gap, all normal. BUN is 49 with a creatinine of 3.56. No chest x-ray was done. Objective - Vital Signs Vital signs: Vital Signs Temp 98.3 F 08/19/21 08:30 Pulse 68 08/19/21 11:00 Resp 36 H 08/19/21 11:00 BP 106/41 08/19/21 11:00 Pulse Ox 93 L 08/19/21 11:00 Intake & Output 08/18/21 08/19/21 08/19/21 18:59 06:59 18:59 Intake Total 3719.308 1847.331 368.492 Output Total 580 515 45 Balance 3139.308 1332.331 323.492 Weight 97.522 kg 78 kg Intake: IV 3216 1300 100 Amiodarone 450 mg In 16 Dextrose 5% in Water 250 ml @ 0.5 MG/MIN 16.667 mls/hr IV .Q15H [facility] Rx#: [id number] Dextrose 5% in Water 1, 1200 1200 100 000 ml @ 100 mls/hr IV . [id number] [facility] with Sodium Bicarb (1 Meq/ml) 150 ml Rx#:[id number] Piperacillin-Tazobactam 3 100 .375 gm In Sodium Chloride 0.9% 100 ml @ 25 mls/hr IVPB Q12HR [facility] Rx #:[id number] Sodium Chloride 0.9% 2, 2000 000 ml @ 999 mls/hr IV . Q2H1M [facility] Rx#:[id number] Intake, IV Titration 378.308 447.331 268.492 Amount Amiodarone 450 mg In 250 Dextrose 5% in Water 250 ml @ 0.5 MG/MIN 16.667 mls/hr IV .Q15H [facility] Rx#: [id number] Heparin Sod,Pork in 0.45% 72.264 NaCl 25,000 unit In 0.45 % NaCl 1 250ml.bag @ 18 UNITS/KG/HR 17.554 mls/hr IV .[id number] [facility] Rx#: [id number] Norepinephrine 4 mg In 56.044 447.331 268.492 Sodium Chloride 0.9% 250 ml @ 0.05 MCG/KG/MIN 18. 578 mls/hr IV .[id number] [facility] Rx#:[id number] Oral 125 Tube Feeding 100 Output: Urine 580 440 45 Stool 75 Other: Voiding Method Indwelling Catheter Indwelling Catheter - Exam No acute distress, oriented 3. Currently on room air. Vital signs show a saturation of 93%. HEENT examination is grossly unremarkable. Mucous membranes are dry. Neck supple. Full range of motion. No adenopathy thyromegaly or neck vein distention. Cardiovascular examination reveals an irregular rhythm and rate. S1-S2 normal. No S3 or S4. No discernible murmur noted. Heart rate is 68 bpm. Lungs reveal clear breath sounds. Her sounds are equal bilaterally. No adventitious lung sounds including wheezes rhonchi or crackles. Abdomen soft bowel sounds are heard. No masses or tenderness. Extremities are intact. No cyanosis clubbing or edema. Skin is without rash or lesion. Neurologic examination is brief but nonfocal. - Labs CBC & Chem 7: 08/19/21 08:20 08/19/21 08:20 Labs: Abnormal Lab Results - Last 24 Hours (Table) 08/18/21 08/18/21 08/18/21 Range/Units 13:02 13:30 15:39 WBC (3.8-10.6) k/uL RBC (3.80-5.40) m/uL Hgb (11.4-16.0) gm/dL Hct (34.0-46.0) % RDW (11.5-15.5) % Neutrophils # (1.3-7.7) k/uL APTT 21.7 L (22.0-30.0) sec BUN (7-17) mg/dL Creatinine (0.52-1.04) mg/dL Glucose (74-99) mg/dL POC Glucose (mg/dL) 185 H (75-99) mg/dL Calcium (8.4-10.2) mg/dL Alkaline Phosphatase (38-126) U/L Total Protein (6.3-8.2) g/dL Albumin (3.5-5.0) g/dL Stool Occult Blood Positive H (Negative) 08/18/21 08/18/21 08/19/21 Range/Units 17:12 21:17 03:09 WBC (3.8-10.6) k/uL RBC (3.80-5.40) m/uL Hgb (11.4-16.0) gm/dL Hct (34.0-46.0) % RDW (11.5-15.5) % Neutrophils # (1.3-7.7) k/uL APTT (22.0-30.0) sec BUN (7-17) mg/dL Creatinine (0.52-1.04) mg/dL Glucose (74-99) mg/dL POC Glucose (mg/dL) 171 H 67 L 108 H (75-99) mg/dL Calcium (8.4-10.2) mg/dL Alkaline Phosphatase (38-126) U/L Total Protein (6.3-8.2) g/dL Albumin (3.5-5.0) g/dL Stool Occult Blood (Negative) 08/19/21 08/19/21 08/19/21 Range/Units 08:19 08:20 08:20 WBC 16.5 H (3.8-10.6) k/uL RBC 2.18 L (3.80-5.40) m/uL Hgb 6.7 L* (11.4-16.0) gm/dL Hct 21.7 L (34.0-46.0) % RDW 17.5 H (11.5-15.5) % Neutrophils # 13.8 H (1.3-7.7) k/uL APTT (22.0-30.0) sec BUN 49 H (7-17) mg/dL Creatinine 3.56 H (0.52-1.04) mg/dL Glucose 139 H (74-99) mg/dL POC Glucose (mg/dL) 143 H (75-99) mg/dL Calcium 7.3 L (8.4-10.2) mg/dL Alkaline Phosphatase 165 H (38-126) U/L Total Protein 5.0 L (6.3-8.2) g/dL Albumin 2.1 L (3.5-5.0) g/dL Stool Occult Blood (Negative) 08/19/21 Range/Units 11:17 WBC (3.8-10.6) k/uL RBC (3.80-5.40) m/uL Hgb (11.4-16.0) gm/dL Hct (34.0-46.0) % RDW (11.5-15.5) % Neutrophils # (1.3-7.7) k/uL APTT (22.0-30.0) sec BUN (7-17) mg/dL Creatinine (0.52-1.04) mg/dL Glucose (74-99) mg/dL POC Glucose (mg/dL) 150 H (75-99) mg/dL Calcium (8.4-10.2) mg/dL Alkaline Phosphatase (38-126) U/L Total Protein (6.3-8.2) g/dL Albumin (3.5-5.0) g/dL Stool Occult Blood (Negative) Microbiology - Last 24 Hours (Table) 08/17/21 01:25 Blood Culture - Preliminary Blood No Growth after 48 hours 08/16/21 01:41 Blood Culture - Preliminary Blood No Growth after 48 hours 08/17/21 11:00 Urine Culture - Preliminary Urine,Voided Group D Enterococcus Gram Neg Bacilli Assessment and Plan Assessment: Mental status changes, likely related to septic encephalopathy. Acute kidney injury, on top of stage III chronic kidney disease. Anion gap metabolic acidosis. Acute left lower extremity DVT. New-onset atrial fibrillation with RVR. Urinary tract infection, secondary to gram-negative bacilli, and group D enterococcus. Persistent hypotension, secondary to sepsis. Recent coronavirus infection. Rule out gynecologic malignancy. History of CHF with preserved LV function. History of type 2 diabetes mellitus. History of hyperlipidemia. History of hypertension. Osteoarthritis. Chronic neuropathy. COPD. Chronic anemia. Plan: Plan dated 08/19/2021. The patient remains on norepinephrine at 6 mcg/m. We will check a cortisol level and a TSH, to rule out adrenal insufficiency, and hypothyroidism. In addition, we'll give the patient 1 unit of packed red blood cells. The patient 's IV will be increased to 75 mL an hour. We will DC the bicarbonate drip. The patient remains on Zosyn and Levaquin, for a urinary tract infection. Additional recommendations and suggestions are forthcoming. Prognosis is guarded. We will continue to follow the patient and make recommendations where appropriate. Time with Patient: Greater than 30
[2021-08-19 13:04] LABS: Albumin 2.12 g/dL (3.80-4.90); Gamma Globulin 1.18 g/dL (0.70-1.50)
--- NOTE | 2021-08-19 13:04 | PN ---
PROGRESS NOTE Mrs. Yuen is in atrial fib. Rate is controlled. She is on metoprolol at this time. She is also on Levophed drip. There is urosepsis and atrial fib issues. Troponin elevation does not suggest myocardial injury. Echo revealed good systolic function. I am suggesting that we should resume anticoagulation as soon as okayed by the surgeon and crabbing machine operator. The patient does have atrial fib. Remains at risk for CVA. Vitals are stable. S1-S2 heard normally, irregular rhythm noted. Short systolic murmur noted. Lungs revealed decent air entry. Abdomen is soft. Lower extremities reveal diminished pulses. Central nervous system grossly no focal deficits. MMODL / IJN: [id number] /
[2021-08-19 13:34] LABS: APTT >180 Sec(s) (<43); APTT 1:1 Mix >180 Sec(s) (<43); DRVVT 1:1 Mix 59 Sec(s) (<44); DRVVT Confirmation Positive (Negative); Dilute Russell Viper Venom 104 Sec(s) (<44); Hexagonal Phase Neutralization Positive (Negative)
--- NOTE | 2021-08-19 13:51 | P.PN ---
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 Quiñonez, and recent admission from 07/29/21-08/04/21 for acute respiratory failure with hypoxia secondary to Covid 19 pneumonitis. Patient presented to the emergency department by EMS with a chief complaint of alteration in mental status, nausea and coffee ground emesis. Patient underwent full evaluation. She was found to be tachycardic 120s to 140s, to 20-24 breaths per minute, hypoxic requiring oxygen supplementation with placement on nonrebreather, and found to have a low-grade temp of 99.9F. EKG revealed atrial fibrillation with a rapid ventricular rate of 148 bpm. Labs revealed significant leukocytosis with WBC count 28.4, anemic with hemoglobin of 9.7, hyperkalemic with potassium 5.4, acidotic with chloride 107, CO2 8, anion gap 22, and plasma lactic acid of 5.0 acute kidney injury with BUN 60, creatinine 4.84, and GFR of 8 with baseline creatinine of 1.8-2.0. Troponins were elevated at 0.062 and 0.054. Pro-calcitonin also elevated at 1.50. Urinalysis positive for infection. Chest x-ray showing mild pulmonary fibrotic changes with no evidence of heart failure or acute cardiopulmonary process. CT chest, abdomen, and pelvis without contrast revealed no evidence of bowel obstruction with no free air however there was a reported new complex 6 x 4 cm cyst on right ovary which is reported being new compared to previous exam. Left lower extremity Dopplers were positive for DVT extending from the left popliteal vein to the femoral vein. Patient was started on heparin infusion for treatment of acute DVT, Cardizem infusion for atrial fibrillation with RVR, bicarb infusion for severe metabolic acidosis with a critical bicarb of 8. Given sepsis bolus of 3 L normal saline and started on IV antibiotics Zosyn and Levaquin. Consultations were placed general surgery for concerns of GI bleed, cardiology for elevated troponin and A. fib RVR, nephrology for acute renal failure and severe metabolic acidosis requiring bicarbonate infusion, and hematology secondary to development of DVT while on oral anticoagulant. Consult was also placed to tester rocket engine secondary to critically ill patient, at this time patient awaiting bed placement on stepdown unit. Called to update patient's son, Yanick, I spoke with him and updated him on mother's critical condition. 08/18: Patient remains in the intensive care unit. She's been on amiodarone and heparin for A. fib with RVR, she is currently on norepinephrine and also receiving magnesium replacement. Patient has black stool in her ostomy and heparin will be discontinued. Abdomen is firm. Consult is in place with general surgery and she has been cleared to start diet. Patient is seen and followed by multiple consultants including oncology, cardiology, nephrology and tester rocket engine. Echocardiogram reveals EF of 65-70%, aneurysmal intra-atrial septum, mild tricuspid regurgitation, no aortic stenosis or regurgitation. Mild mitral ossification. Mild pulmonary hypertension, RVSP 37.19.. Pulmonary perfusion study showed small perfusion defects correspond to low probability for pulmonary embolism. 08/19: She remains in the intensive care unit and on norepinephrine. She has been afebrile, heart rate 68, blood pressure 106/41 and pulse ox 93% on room air. Hemoglobin this morning is 6.7 and 1 unit of packed RBCs has been ordered. Patient has liquid dark brown stool in her ostomy bag. Other blood work reveals BUN of 49 creatinine 3.56 which is improving. Blood sugars are running between 67 and 150. We'll discontinue scheduled NovoLog as patient is now off drips containing D5W. Bicarbonate drip discontinued. Patient remains confused. Urine culture is showing group D enterococcus and gram-negative bacilli. Blood culture no growth at 48 hours 2 specimens. Review Of Systems: Constitutional: No documented fever, no chills, no night sweats. No weight change. Noted weakness, fatigue. No daytime sleepiness. EENT: No headache. No blurred vision or double vision, no loss of vision. No loss of Hearing, no ringing in the ears, no dizziness. No nasal drainage or con gestion. No epistaxis. No sore throat. Lungs: No shortness of breath, cough, no sputum production. No wheezing. Cardiovascular: No chest pain, no lower extremity edema. No palpitations. No paroxysmal nocturnal dyspnea. No orthopnea. No lightheadedness or dizziness. No syncopal episodes. Abdominal: No abdominal pain. No nausea, vomiting. No diarrhea. No constipation. NoTED bloody or tarry stools.. No loss of appetite. Genitourinary: No dysuria, increased frequency, urgency. No urinary retention. Musculoskeletal: No myalgias. No muscle weakness, no gait dysfunction, no frequent falls. No back pain. No neck pain. Integumentary: No wounds, no lesions. No rash or pruritus. No unusual bruising. No change in hair or nails. Neurologic: No aphasia. No facial droop. No change in mentation. No head injury. No headache. No paralysis. No paresthesia. Psychiatric: No depression. No anxiety. No mood swings. Endocrine: No abnormal blood sugars. No weight change. No excessive sweating or thirst. No cold intolerance. Physical exam: Gen: This is an elderly frail appearing 80-year-old female, resting in bed in no acute distress. Patient is seen today in the intensive care unit. HEENT: Head is atraumatic, normocephalic. Pupils equal, round. Sclerae is anicteric. NECK: Supple. No JVD. No lymphadenopathy. No thyromegaly. LUNGS: Decreased breath some bilateral rhonchi and mild expiratory wheezes. HEART: Irregular rate and rhythm. Monitor atrial fibrillation. ABDOMEN: Abdomen firm, no rebound or rigidity. Ostomy on the right side with black liquid stool, mucous fistula on the left. Beckett catheter draining nicolette urine EXTREMITIES: No pedal edema. No calf tenderness. NEUROLOGICAL: Patient is awake, alert with slight confusion. Cranial nerves 2 through 12 are grossly intact. Assessment and Plan of Care: Metabolic encephalopathy, Likely multifactorial resulting from current critical state with severe metabolic acidosis, severe sepsis, PETE, and following conditions listed below. Severe sepsis with septic shock requiring vasopressors of unclear etiology possibly urinary tract infection versus other source such as abdominal Continue care in the intensive care unit, tester rocket engine consult appreciated.continue Levaquin, Zosyn, vasopressor support, status post IV fluid resuscitation, await urine and blood culture results Acute GI bleed with reports of coffee-ground emesis Acute on chronic anemia slightly below baseline hemoglobin of 9, acute blood loss anemia Continue Protonix 40 mg IV twice daily, general surgery consult, diet advanced to full liquid. Continue to monitor hemoglobin. Heparin drip discontinued. Patient be transfused 1 unit of packed RBCs. Acute DVT of left lower extremity Acute hypoxic respiratory failure, recent admission for Covid 19 pneumonitis from 07/29/21 through 08/04/21 Pulmonary embolus and ruled out. Acute kidney injury on chronic kidney disease stage III Severe Metabolic acidosis Lactic acidosis UTI with history of [id number]-wksidxbtm E. coli -Consult nephrology -Insert Beckett catheter for close monitoring of I's and O's. -Treat UTI with Zosyn as previous culture was sensitive -Caution with nephrotoxic medications. -Follow up on urine culture. Atrial fibrillation with RVR, paroxysmal atrial fibrillation Elevated troponin, flat, likely secondary to RVR Chronic diastolic heart failure with previously known EF of 55-60% Continue Cardizem drip, cardiology consult appreciated continue Lopressor 50 mg twice daily heparin drip for OB discontinued. Diabetes mellitus type 2 insulin requiring, uncontrolled with hyperglycemia. Continue NovoLog scale, add NovoLog 5 units with meals Incidental finding on imaging -CT reported new complex 6 x 4 cm cyst on right ovary which is reported being new compared to previous exam -Previous surgical report from 06/20/21 stated findings of a 3.5 cm lesion on right ovary concerning for potential ovarian canceOncology consult appreciated Hypertension. Patient is off anti-hypertensive medications. Hyperlipidemia CODE STATUS: Full code DVT prophylaxis: SCDs and FAHEEM hose DISCHARGE PLAN Subacute rehab at [facility] Impression and plan of care have been directed as dictated by the signing physician. Thais Scott nurse practitioner acting as scribe for signing physician. Objective - Vital Signs Vital signs: Vital Signs Temp 98.3 F 08/19/21 08:30 Pulse 68 08/19/21 11:00 Resp 36 H 08/19/21 11:00 BP 106/41 08/19/21 11:00 Pulse Ox 93 L 08/19/21 11:00 Intake & Output 08/18/21 08/19/21 08/19/21 18:59 06:59 18:59 Intake Total 3719.308 5615.550 1431.492 Output Total 580 515 295 Balance 3139.308 1332.331 723.492 Weight 97.522 kg 78 kg Intake: IV 3216 1300 400 Amiodarone 450 mg In 16 Dextrose 5% in Water 250 ml @ 0.5 MG/MIN 16.667 mls/hr IV .Q15H [facility] Rx#: [id number] Dextrose 5% in Water 1, 1200 1200 300 000 ml @ 100 mls/hr IV . [id number] STEPHANIE with Sodium Bicarb (1 Meq/ml) 150 ml Rx#:[id number] Piperacillin-Tazobactam 3 100 100 .375 gm In Sodium Chloride 0.9% 100 ml @ 25 mls/hr IVPB Q12HR [facility] Rx #:[id number] Sodium Chloride 0.9% 2, 2000 000 ml @ 999 mls/hr IV . Q2H1M [facility] Rx#:[id number] Intake, IV Titration 378.308 447.331 618.492 Amount Amiodarone 450 mg In 250 Dextrose 5% in Water 250 ml @ 0.5 MG/MIN 16.667 mls/hr IV .Q15H [facility] Rx#: [id number] Heparin Sod,Pork in 0.45% 72.264 NaCl 25,000 unit In 0.45 % NaCl 1 250ml.bag @ 18 UNITS/KG/HR 17.554 mls/hr IV .[id number] [facility] Rx#: [id number] Levofloxacin 500Mg-D5w 100 Pmx 500 mg In Dextrose/ Water 1 100ml.bag @ 100 mls/hr IVPB Q48H [facility] Rx#: [id number] Magnesium Sulfate-D5w Pmx 100 1 gm In Dextrose/Water 1 100ml.bag @ 100 mls/hr IVPB ONCE ONE Rx#: [id number] Norepinephrine 4 mg In 56.044 447.331 268.492 Sodium Chloride 0.9% 250 ml @ 0.05 MCG/KG/MIN 18. 578 mls/hr IV .[id number] [facility] Rx#:[id number] Sodium Chloride 0.9% 1, 150 000 ml @ 75 mls/hr IV . [id number] [facility] Rx#:[id number] Oral 125 Tube Feeding 100 Output: Urine 580 440 295 Stool 75 Other: Voiding Method Indwelling Catheter Indwelling Catheter Indwelling Catheter - Labs CBC & Chem 7: 08/19/21 08:20 08/19/21 08:20 Labs: Abnormal Lab Results - Last 24 Hours (Table) 08/18/21 08/18/21 08/18/21 Range/Units 13:02 13:30 15:39 WBC (3.8-10.6) k/uL RBC (3.80-5.40) m/uL Hgb (11.4-16.0) gm/dL Hct (34.0-46.0) % RDW (11.5-15.5) % Neutrophils # (1.3-7.7) k/uL APTT 21.7 L (22.0-30.0) sec BUN (7-17) mg/dL Creatinine (0.52-1.04) mg/dL Glucose (74-99) mg/dL POC Glucose (mg/dL) 185 H (75-99) mg/dL Calcium (8.4-10.2) mg/dL Alkaline Phosphatase (38-126) U/L Total Protein (6.3-8.2) g/dL Albumin (3.5-5.0) g/dL Stool Occult Blood Positive H (Negative) 08/18/21 08/18/21 08/19/21 Range/Units 17:12 21:17 03:09 WBC (3.8-10.6) k/uL RBC (3.80-5.40) m/uL Hgb (11.4-16.0) gm/dL Hct (34.0-46.0) % RDW (11.5-15.5) % Neutrophils # (1.3-7.7) k/uL APTT (22.0-30.0) sec BUN (7-17) mg/dL Creatinine (0.52-1.04) mg/dL Glucose (74-99) mg/dL POC Glucose (mg/dL) 171 H 67 L 108 H (75-99) mg/dL Calcium (8.4-10.2) mg/dL Alkaline Phosphatase (38-126) U/L Total Protein (6.3-8.2) g/dL Albumin (3.5-5.0) g/dL Stool Occult Blood (Negative) 08/19/21 08/19/21 08/19/21 Range/Units 08:19 08:20 08:20 WBC 16.5 H (3.8-10.6) k/uL RBC 2.18 L (3.80-5.40) m/uL Hgb 6.7 L* (11.4-16.0) gm/dL Hct 21.7 L (34.0-46.0) % RDW 17.5 H (11.5-15.5) % Neutrophils # 13.8 H (1.3-7.7) k/uL APTT (22.0-30.0) sec BUN 49 H (7-17) mg/dL Creatinine 3.56 H (0.52-1.04) mg/dL Glucose 139 H (74-99) mg/dL POC Glucose (mg/dL) 143 H (75-99) mg/dL Calcium 7.3 L (8.4-10.2) mg/dL Alkaline Phosphatase 165 H (38-126) U/L Total Protein 5.0 L (6.3-8.2) g/dL Albumin 2.1 L (3.5-5.0) g/dL Stool Occult Blood (Negative) 08/19/21 Range/Units 11:17 WBC (3.8-10.6) k/uL RBC (3.80-5.40) m/uL Hgb (11.4-16.0) gm/dL Hct (34.0-46.0) % RDW (11.5-15.5) % Neutrophils # (1.3-7.7) k/uL APTT (22.0-30.0) sec BUN (7-17) mg/dL Creatinine (0.52-1.04) mg/dL Glucose (74-99) mg/dL POC Glucose (mg/dL) 150 H (75-99) mg/dL Calcium (8.4-10.2) mg/dL Alkaline Phosphatase (38-126) U/L Total Protein (6.3-8.2) g/dL Albumin (3.5-5.0) g/dL Stool Occult Blood (Negative) Microbiology - Last 24 Hours (Table) 08/17/21 01:25 Blood Culture - Preliminary Blood No Growth after 48 hours 08/16/21 01:41 Blood Culture - Preliminary Blood No Growth after 48 hours 08/17/21 11:00 Urine Culture - Preliminary Urine,Voided Group D Enterococcus Gram Neg Bacilli
[2021-08-19 17:46] LABS: Glucose,Whole Blood 115 mg/dL (75-99)
[2021-08-19 20:33] LABS: Glucose,Whole Blood 87 mg/dL (75-99)
[2021-08-19] MEDS: PRAVASTATIN SODIUM 40 MG TAB PO SCH (20:48)
[2021-08-20] MEDS: NOREPINEPHRINE 4 MG in SODIUM CHLORIDE 0.9% 250 ML IV SCH (05:01)
[2021-08-20 05:17] LABS: Anisocytosis Slight; Basophils % (A) 0 %; Eosinophils # (A) 0.3 k/uL (0-0.7); Eosinophils % (A) 2 %; HGB 7.9 gm/dL (11.4-16.0); Hypochromasia Moderate; Lymphocytes # (A) 1.3 k/uL (1.0-4.8); Lymphocytes % (A) 9 %; MCH 30.5 pg (25.0-35.0); MCHC 31.6 g/dL (31.0-37.0); MCV 96.7 fL (80.0-100.0); Macrocytosis Slight; Mean Platelet Volume 9.5; Monocytes # (A) 0.8 k/uL (0-1.0); Monocytes % (A) 5 %; Neutrophils # (A) 11.8 k/uL (1.3-7.7); Neutrophils % (A) 82 %; Platelet Count 177 k/uL (150-450); Poikilocytosis Slight; RBC 2.58 m/uL (3.80-5.40); RDW 16.8 % (11.5-15.5); WBC 14.3 k/uL (3.8-10.6)
[2021-08-20 05:30] LABS: Albumin 2.1 g/dL (3.5-5.0); Calcium 7.2 mg/dL (8.4-10.2); Potassium 3.5 mmol/L (3.5-5.1); Total Bilirubin 0.7 mg/dL (0.2-1.3); Total Protein 5.1 g/dL (6.3-8.2)
[2021-08-20] MEDS: INSULIN ASPART (NovoLOG) 100 UNIT/ML VIAL SQ SCH ×4 (07:49→20:58)
--- NOTE | 2021-08-20 08:19 | P.PN ---
Subjective Progress Note Date: 08/20/21 Principal diagnosis: Urosepsis, atrial fibrillation, multiple medical problems, 10 cm uterus with heterogeneous texture and scant vaginal bleeding. No significant vaginal bleeding noted through the night. Objective - Vital Signs Vital signs: Vital Signs Temp 98.0 F 08/20/21 04:00 Pulse 56 L 08/20/21 06:00 Resp 14 08/20/21 06:00 BP 102/49 08/20/21 06:00 Pulse Ox 89 L 08/20/21 06:00 Intake & Output 08/19/21 08/20/21 08/20/21 18:59 06:59 18:59 Intake Total 2518.958 1221.212 51.709 Output Total 695 285 Balance 1823.958 936.212 51.709 Intake: IV 400 1025 Dextrose 5% in Water 1, 300 000 ml @ 100 mls/hr IV . [id number] [facility] with Sodium Bicarb (1 Meq/ml) 150 ml Rx#:[id number] Piperacillin-Tazobactam 3 100 200 .375 gm In Sodium Chloride 0.9% 100 ml @ 25 mls/hr IVPB Q12HR [facility] Rx #:[id number] Sodium Chloride 0.9% 1, 825 000 ml @ 75 mls/hr IV . [id number] [facility] Rx#:[id number] Intake, IV Titration 1302.958 96.212 51.709 Amount Levofloxacin 500Mg-D5w 100 Pmx 500 mg In Dextrose/ Water 1 100ml.bag @ 100 mls/hr IVPB Q48H [facility] Rx#: [id number] Magnesium Sulfate-D5w Pmx 100 1 gm In Dextrose/Water 1 100ml.bag @ 100 mls/hr IVPB ONCE ONE Rx#: [id number] Norepinephrine 4 mg In 352.958 96.212 51.709 Sodium Chloride 0.9% 250 ml @ 0.05 MCG/KG/MIN 18. 578 mls/hr IV .[id number] [facility] Rx#:[id number] Sodium Chloride 0.9% 1, 750 000 ml @ 75 mls/hr IV . [id number] [facility] Rx#:[id number] Oral 240 100 Blood Product 576 Rc Pheresis 2 As3 Unit 276 [id number] Output: Urine 620 285 Stool 75 Other: Voiding Method Indwelling Catheter Indwelling Catheter - Constitutional General appearance: Present: average body habitus, obese - Gastrointestinal General gastrointestinal: Present: normal bowel sounds - Labs CBC & Chem 7: 08/20/21 05:05 08/20/21 05:05 Labs: Abnormal Lab Results - Last 24 Hours (Table) 08/17/21 08/17/21 08/19/21 Range/Units 14:23 14:23 08:19 WBC (3.8-10.6) k/uL RBC (3.80-5.40) m/uL Hgb (11.4-16.0) gm/dL Hct (34.0-46.0) % RDW (11.5-15.5) % Neutrophils # (1.3-7.7) k/uL Lupus Anticoag aPTT >180 H (<43) Sec(s) Lupus Anticoag PTT Mix >180 H (<43) Sec(s) Dil Noel Viper Venom 104 H (<44) Sec(s) LA dRVVT Confirm Positive A (Negative) dRVVT 50:50 59 H (<44) Sec(s) Lupus Hexagonal Phase Positive A (Negative) Chloride (98-107) mmol/L BUN (7-17) mg/dL Creatinine (0.52-1.04) mg/dL Glucose (74-99) mg/dL POC Glucose (mg/dL) 143 H (75-99) mg/dL Calcium (8.4-10.2) mg/dL Alkaline Phosphatase (38-126) U/L Total Protein (6.3-8.2) g/dL Albumin (3.5-5.0) g/dL Albumin (PEP) 2.12 L (3.80-4.90) g/dL [id number] 0.56 H (0.10-0.40) g/dL Crossmatch 08/19/21 08/19/21 08/19/21 Range/Units 08:20 08:20 09:43 WBC 16.5 H (3.8-10.6) k/uL RBC 2.18 L (3.80-5.40) m/uL Hgb 6.7 L* (11.4-16.0) gm/dL Hct 21.7 L (34.0-46.0) % RDW 17.5 H (11.5-15.5) % Neutrophils # 13.8 H (1.3-7.7) k/uL Lupus Anticoag aPTT (<43) Sec(s) Lupus Anticoag PTT Mix (<43) Sec(s) Dil Noel Viper Venom (<44) Sec(s) LA dRVVT Confirm (Negative) dRVVT 50:50 (<44) Sec(s) Lupus Hexagonal Phase (Negative) Chloride (98-107) mmol/L BUN 49 H (7-17) mg/dL Creatinine 3.56 H (0.52-1.04) mg/dL Glucose 139 H (74-99) mg/dL POC Glucose (mg/dL) (75-99) mg/dL Calcium 7.3 L (8.4-10.2) mg/dL Alkaline Phosphatase 165 H (38-126) U/L Total Protein 5.0 L (6.3-8.2) g/dL Albumin 2.1 L (3.5-5.0) g/dL Albumin (PEP) (3.80-4.90) g/dL [id number]-Vukbgcmvz (0.10-0.40) g/dL Crossmatch See Detail 08/19/21 08/19/21 08/20/21 Range/Units 11:17 17:45 05:05 WBC 14.3 H (3.8-10.6) k/uL RBC 2.58 L (3.80-5.40) m/uL Hgb 7.9 L (11.4-16.0) gm/dL Hct 25.0 L (34.0-46.0) % RDW 16.8 H (11.5-15.5) % Neutrophils # 11.8 H (1.3-7.7) k/uL Lupus Anticoag aPTT (<43) Sec(s) Lupus Anticoag PTT Mix (<43) Sec(s) Dil Noel Viper Venom (<44) Sec(s) LA dRVVT Confirm (Negative) dRVVT 50:50 (<44) Sec(s) Lupus Hexagonal Phase (Negative) Chloride (98-107) mmol/L BUN (7-17) mg/dL Creatinine (0.52-1.04) mg/dL Glucose (74-99) mg/dL POC Glucose (mg/dL) 150 H 115 H (75-99) mg/dL Calcium (8.4-10.2) mg/dL Alkaline Phosphatase (38-126) U/L Total Protein (6.3-8.2) g/dL Albumin (3.5-5.0) g/dL Albumin (PEP) (3.80-4.90) g/dL Lgzvw-9-Rkeupyjjq (0.10-0.40) g/dL Crossmatch 08/20/21 Range/Units 05:05 WBC (3.8-10.6) k/uL RBC (3.80-5.40) m/uL Hgb (11.4-16.0) gm/dL Hct (34.0-46.0) % RDW (11.5-15.5) % Neutrophils # (1.3-7.7) k/uL Lupus Anticoag aPTT (<43) Sec(s) Lupus Anticoag PTT Mix (<43) Sec(s) Dil Noel Viper Venom (<44) Sec(s) LA dRVVT Confirm (Negative) dRVVT 50:50 (<44) Sec(s) Lupus Hexagonal Phase (Negative) Chloride 108 H (98-107) mmol/L BUN 44 H (7-17) mg/dL Creatinine 3.47 H (0.52-1.04) mg/dL Glucose (74-99) mg/dL POC Glucose (mg/dL) (75-99) mg/dL Calcium 7.2 L (8.4-10.2) mg/dL Alkaline Phosphatase 158 H (38-126) U/L Total Protein 5.1 L (6.3-8.2) g/dL Albumin 2.1 L (3.5-5.0) g/dL Albumin (PEP) (3.80-4.90) g/dL Dysju-3-Ibilmpijo (0.10-0.40) g/dL Crossmatch Microbiology - Last 24 Hours (Table) 08/17/21 01:25 Blood Culture - Preliminary Blood No Growth after 72 hours 08/16/21 01:41 Blood Culture - Preliminary Blood No Growth after 72 hours 08/17/21 11:00 Urine Culture - Final Urine,Voided Enterococcus faecium Escherichia coli Assessment and Plan Assessment: Continued medical management for this 80-year-old female. 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 Plan: Continued medical management. Continue weaning of levophed for hypotension. Intermittent atrial fibrillation still present. Patient aware that D&C is ultimately recommended when clinically stable. We'll continue to follow peripherally. Time with Patient: Less than 30
[2021-08-20] MEDS ORDERED: POTASSIUM CHLORIDE ER 20 MEQ TAB.ER PO STA (09:00)
--- NOTE | 2021-08-20 09:01 | P.PN ---
Subjective Patient is seen in follow-up for acute kidney injury on chronic kidney disease. Renal function a little better today. Urine output about 30 mL an hour. On room air. Off vasopressors. Receiving IV fluids. Vital signs are stable. HEENT: Head exam is unremarkable. LUNGS:Breath sounds decreased. HEART: Regular rate and rhythm. ABDOMEN: Soft, no distention. EXTREMITITES: No edema. Objective - Vital Signs Vital signs: Vital Signs Temp 98.0 F 08/20/21 04:00 Pulse 56 L 08/20/21 06:00 Resp 14 08/20/21 06:00 BP 102/49 08/20/21 06:00 Pulse Ox 89 L 08/20/21 06:00 Intake & Output 08/19/21 08/20/21 08/20/21 18:59 06:59 18:59 Intake Total 2518.958 1221.212 51.709 Output Total 695 285 Balance 1823.958 936.212 51.709 Intake: IV 400 1025 Dextrose 5% in Water 1, 300 000 ml @ 100 mls/hr IV . [id number] STEPHANIE with Sodium Bicarb (1 Meq/ml) 150 ml Rx#:[id number] Piperacillin-Tazobactam 3 100 200 .375 gm In Sodium Chloride 0.9% 100 ml @ 25 mls/hr IVPB Q12HR [facility] Rx #:[id number] Sodium Chloride 0.9% 1, 825 000 ml @ 75 mls/hr IV . [id number] [facility] Rx#:[id number] Intake, IV Titration 1302.958 96.212 51.709 Amount Levofloxacin 500Mg-D5w 100 Pmx 500 mg In Dextrose/ Water 1 100ml.bag @ 100 mls/hr IVPB Q48H [facility] Rx#: [id number] Magnesium Sulfate-D5w Pmx 100 1 gm In Dextrose/Water 1 100ml.bag @ 100 mls/hr IVPB ONCE ONE Rx#: [id number] Norepinephrine 4 mg In 352.958 96.212 51.709 Sodium Chloride 0.9% 250 ml @ 0.05 MCG/KG/MIN 18. 578 mls/hr IV .[id number] [facility] Rx#:[id number] Sodium Chloride 0.9% 1, 750 000 ml @ 75 mls/hr IV . [id number] [facility] Rx#:[id number] Oral 240 100 Blood Product 576 Rc Pheresis 2 As3 Unit 276 [id number] Output: Urine 620 285 Stool 75 Other: Voiding Method Indwelling Catheter Indwelling Catheter - Labs CBC & Chem 7: 08/20/21 05:05 08/20/21 05:05 Labs: Abnormal Lab Results - Last 24 Hours (Table) 08/17/21 08/17/21 08/19/21 Range/Units 14:23 14:23 08:20 WBC (3.8-10.6) k/uL RBC (3.80-5.40) m/uL Hgb (11.4-16.0) gm/dL Hct (34.0-46.0) % RDW (11.5-15.5) % Neutrophils # (1.3-7.7) k/uL Lupus Anticoag aPTT >180 H (<43) Sec(s) Lupus Anticoag PTT Mix >180 H (<43) Sec(s) Dil Noel Viper Venom 104 H (<44) Sec(s) LA dRVVT Confirm Positive A (Negative) dRVVT 50:50 59 H (<44) Sec(s) Lupus Hexagonal Phase Positive A (Negative) Chloride (98-107) mmol/L BUN 49 H (7-17) mg/dL Creatinine 3.56 H (0.52-1.04) mg/dL Glucose 139 H (74-99) mg/dL POC Glucose (mg/dL) (75-99) mg/dL Calcium 7.3 L (8.4-10.2) mg/dL Alkaline Phosphatase 165 H (38-126) U/L Total Protein 5.0 L (6.3-8.2) g/dL Albumin 2.1 L (3.5-5.0) g/dL Albumin (PEP) 2.12 L (3.80-4.90) g/dL Txyke-2-Ggzysnjkf 0.56 H (0.10-0.40) g/dL Crossmatch 08/19/21 08/19/21 08/19/21 Range/Units 08:20 09:43 11:17 WBC 16.5 H (3.8-10.6) k/uL RBC 2.18 L (3.80-5.40) m/uL Hgb 6.7 L* (11.4-16.0) gm/dL Hct 21.7 L (34.0-46.0) % RDW 17.5 H (11.5-15.5) % Neutrophils # 13.8 H (1.3-7.7) k/uL Lupus Anticoag aPTT (<43) Sec(s) Lupus Anticoag PTT Mix (<43) Sec(s) Dil Noel Viper Venom (<44) Sec(s) LA dRVVT Confirm (Negative) dRVVT 50:50 (<44) Sec(s) Lupus Hexagonal Phase (Negative) Chloride (98-107) mmol/L BUN (7-17) mg/dL Creatinine (0.52-1.04) mg/dL Glucose (74-99) mg/dL POC Glucose (mg/dL) 150 H (75-99) mg/dL Calcium (8.4-10.2) mg/dL Alkaline Phosphatase (38-126) U/L Total Protein (6.3-8.2) g/dL Albumin (3.5-5.0) g/dL Albumin (PEP) (3.80-4.90) g/dL Rgmth-0-Daobytcqc (0.10-0.40) g/dL Crossmatch See Detail 08/19/21 08/20/21 08/20/21 Range/Units 17:45 05:05 05:05 WBC 14.3 H (3.8-10.6) k/uL RBC 2.58 L (3.80-5.40) m/uL Hgb 7.9 L (11.4-16.0) gm/dL Hct 25.0 L (34.0-46.0) % RDW 16.8 H (11.5-15.5) % Neutrophils # 11.8 H (1.3-7.7) k/uL Lupus Anticoag aPTT (<43) Sec(s) Lupus Anticoag PTT Mix (<43) Sec(s) Dil Noel Viper Venom (<44) Sec(s) LA dRVVT Confirm (Negative) dRVVT 50:50 (<44) Sec(s) Lupus Hexagonal Phase (Negative) Chloride 108 H (98-107) mmol/L BUN 44 H (7-17) mg/dL Creatinine 3.47 H (0.52-1.04) mg/dL Glucose (74-99) mg/dL POC Glucose (mg/dL) 115 H (75-99) mg/dL Calcium 7.2 L (8.4-10.2) mg/dL Alkaline Phosphatase 158 H (38-126) U/L Total Protein 5.1 L (6.3-8.2) g/dL Albumin 2.1 L (3.5-5.0) g/dL Albumin (PEP) (3.80-4.90) g/dL Ajtgu-2-Qzrmonkkk (0.10-0.40) g/dL Crossmatch Microbiology - Last 24 Hours (Table) 08/17/21 01:25 Blood Culture - Preliminary Blood No Growth after 72 hours 08/16/21 01:41 Blood Culture - Preliminary Blood No Growth after 72 hours 08/17/21 11:00 Urine Culture - Final Urine,Voided Enterococcus faecium Escherichia coli Assessment and Plan Plan: Assessment: 1. Acute kidney injury mostly prerenal secondary to hypovolemia and hemodynamic instability. Creatinine 4.84 on admission - 3.47 today. No hydronephrosis noted on CAT scan. 2. Chronic kidney disease stage IIIa with baseline creatinine in the range of 1.3-1.5 secondary to diabetic kidney disease. 3. Left lower extremity DVT. 4. A. fib with RVR maintained on metoprolol. 5. Metabolic acidosis secondary to acute kidney injury. s/p bicarbonate drip. 6. Diabetes mellitus. 7. Hypomagnesemia from poor intake. Replaced. Better. 8. Septic shock secondary to UTI. Urine culture positive for enterococcus. 9. Acute blood loss anemia. Status post blood transfusion 08/19/2021. Improved. No active bleeding. 10. Hypokalemia from poor intake. Plan: Maintain normal saline at 75 mL an hour. Replace potassium. 40 mEq today. Avoid nephrotoxins. Preserved ejection fraction. Continue to monitor renal function and urine output.
[2021-08-20] MEDS ORDERED: ENOXAPARIN 30 MG/0.3 ML SYRINGE SQ SCH (09:15)
[2021-08-20] MEDS: SODIUM CHLORIDE 0.9% 1,000 ML IV SCH ×2 (09:23→12:03)
[2021-08-20] MEDS: FAMOTIDINE 20 MG/2 ML VIAL IV SCH (09:23)
[2021-08-20] MEDS: METOPROLOL TARTRATE 25 MG TAB PO SCH ×3 (09:23→22:52)
[2021-08-20] MEDS: FLUoxetine HCL 20 MG CAP PO SCH (09:23)
[2021-08-20] MEDS: PIPERACILLIN-TAZOBACTAM 3.375 GM in SODIUM CHLORIDE 0.9% 100 ML IVPB SCH ×2 (09:24→22:47)
[2021-08-20] MEDS: PANTOPRAZOLE 40 MG/10 ML VIAL IVP SCH ×2 (09:24→22:47)
--- NOTE | 2021-08-20 09:24 | XR ---
EXAMINATION TYPE: XR chest 1V portable DATE OF EXAM: 08/20/2021 COMPARISON: 08/17/2021 INDICATION: Short of breath TECHNIQUE: Single frontal view of the chest is obtained. FINDINGS: The heart size is mild to prominent. The pulmonary vasculature is slightly prominent. Mild infiltrates of both the left diaphragm. This is increasing over the interval. There is a right central venous catheter which is curled in the superior vena cava with tip directed superiorly. IMPRESSION: 1. Increasing left basilar infiltrate. Correlate for atelectasis. 2. Catheter position remains with the tip directed superiorly within the superior vena cava region. 3. Cardiomegaly with mild prominent pulmonary vascular markings correlate for early volume overload
--- NOTE | 2021-08-20 09:36 | P.PN ---
Subjective Progress Note Date: 08/20/21 Principal diagnosis: Altered mental status, acute kidney injury, acute left lower extremity DVT, new onset A. fib with RVR This is a 80-year-old female patient who came into the emergency department with altered mental status. No family was available in the emergency department. The patient is unable to provide any history whatsoever. Apparently, the patient was hospitalized earlier and she was discharged from the hospital on 08/04/2021 after being treated for acute hypoxic respiratory failure secondary to COVID 19 related pneumonia and during the course of her evaluation or hospitalization, the patient had an acute kidney injury secondary to ATN and infection/sepsis secondary to underlying urine checked infection with multidrug resistant E. coli. Ultimately, the patient's condition was stabilized and she was discharged home with home care. She is known to have multiple medical problems including a previous history of a questionable pelvic mass, previous history of a right sided colectomy with diverting ileostomy, CHF, diabetes mellitus type 2, chronic stage IIIB kidney disease, chronic peripheral neuropathy, hyperlipidemia, chronic anemia and COPD. She is also known to have CHF along with history approximately atrial fibrillation. During this current admission, the patient apparently was not eating in her condition was progressively getting worse and she comes in with mental status change. In the emergency department, the patient was found to be in atrial fibrillation with rapid ventricular response. She was hypotensive. She was also found to be in acute kidney injury and she had severe anion gap metabolic acidosis. Her serum bicarb was 8 and LDL was 60 with a creatinine of 4.8 consistent with an acute on top of chronic kidney failure and the patient also had a lactic acid level as high as 5.0 with some troponin leaks. The white cell count was abnormal and the patient underwent white cell count of 28.4 with a hemoglobin of 0.7 and follow-up levels showed a drop in hemoglobin down to 8.7 and at the same time the patient normal correlation profile, UA was abnormal consistent with underlying urine checked infection. Stool occult blood was positive. Urine drug screen was negative. History of colon cancer was inserted in the emergency department. The chest x-ray showed a fall with right subclavian triple-lumen catheter which is essentially functional. There was no pulmonary consolidation. The CAT scan of the chest abdomen and pelvis was done and showed colectomy and diverting ileostomy and there was evidence of any free air in the abdomen. The Doppler of the lower activity was also done and the patient was found to have DVT in the left popliteal vein extending to the common vein and ultrasound the kidney was done that showed limited view without any acute ultrasonic changes. The patient currently is on Cardizem drip regarding her atrial fibrillation. The patient is on Cardizem drip at 5 mg an hour for rate control. The patient is also on IV heparin per protocol. The patient covered with empiric antibiotic coverage and she was given accommodation of Zosyn and Levaquin. She was also started on a bicarb infusion which is currently running at the rate of 100 mL an hour. Beckett catheter inserted. On 08/18/2000 patient seen in follow-up in the intensive care unit, she is currently awake and alert, in no acute distress, breathing comfortably, she is on 2 L of oxygen pulse ox is 97-98%, she is answering questions improperly, she denies any acute distress, she remains in atrial fibrillation with a rate of 117 BPM, she is currently on norepinephrine drip. 0.05 mics per kilo per minute, D5W with 3 A of bicarbonate at 100 ML per hour, amiodarone drip is at 0.5 mg/h. Patient is supposed to be restarted on heparin infusion as well after surgical clearance. Her VQ scan showed low probability of PE, patient was found to have left lower extremity DVT. Lung sounds are clear, diminished at the bases, no cough, no congestion, no complaints of chest pain, she remains on combination of antibiotics with Levaquin and Zosyn. Her urine and blood cultures have been negative. CT chest abdomen and pelvis showed mild atelectasis and scarring in the right lung base, no pleural effusion, no pericardial effusion no aneurysm, no hilar masses. There was no evidence of bowel obstruction. No mesenteric e gloria, no ascites or free air. 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 Echocardiogram has been reviewed showing preserved LV function with EF of 65-70%, mildly enlarged right ventricle, no aortic stenosis or regurgitation, mild tricuspid regurg, mild pulmonary hypertension with right- sided pressure of 37 mmHg. Patient is still on fairly high amount of vasopressors. Beckett catheter is in place, and patient is producing urine in the order of 30-40 mL per hour, her right-sided ileostomy is producing normal amount of greenish liquid stool. Colostomy is not bringing out any output. His labs have been reviewed, her white blood cell count is slightly improved and is currently at 21.5, hemoglobin is 7.7, sodium is 137, potassium is 4.8, chloride is 110, CO2 is 11, BUN 62, creatinine is 4.25. Renal profile is slightly improved compared to last couple of days. Nephrology services are following. Patient does have a recent history of "with 19 infection, her LDH from 08/17/2020 was 1002, and CRP it has not been checked, pro-calcitonin level is 1.5, and urinalysis showed evidence of acute urinary tract infection. On 08/19/2021 patient seen in follow-up in the intensive care unit, she is rest ing comfortably in bed, denies any acute distress, room air pulse ox is 94%, lung sounds are clear to auscultation, no cough, no complaints of chest pain, she is in sinus mechanism with a rate of 54 BPM. She is on 0.9 normal saline at a rate of 75 ML per hour, no norepinephrine drip, no other vasopressor support. Hemodynamically she has been stable. She received a unit of packed red blood cells on August 19, 2021, for a hemoglobin of 6.7. Today's hemoglobin is 7.9, white blood cell count is improving and is down to 14.3, sodium is 141, potassium 3.5, chloride is 108, BUN is 44, creatinine is 3.47. TSH and cortisol levels were within normal limits at 1.840 and 40 respectively. Today's chest x- ray has been reviewed showing increasing left basilar infiltrates correlating for atelectasis., There was cardiomegaly with mild prominent pulmonary vascular markings, possibility of early fluid overload. No acute events overnight, no specific complaints, no abdominal pain, ileostomy is producing liquid stool, mid abdominal incision is clean dry and intact. Patient remains on a combination of Levaquin and Zosyn for urinary tract infection, yesterday's urinalysis still showing persistent urinary tract infection. Urine culture revealed enterococcus species with susceptibility to Levaquin, and E. coli which was susceptible to Zosyn. Patient is noted to have peripheral edema, and the left leg has more swelling than the right leg. No anticoagulation in view of low hemoglobin. We'll start l Lovenox 30 mg daily, and await further input from cardiology on the recommendation for anticoagulation in view of paroxysmal atrial fibrillation. Objective - Vital Signs Vital signs: Vital Signs Temp 98.0 F 08/20/21 04:00 Pulse 56 L 08/20/21 06:00 Resp 14 08/20/21 06:00 BP 102/49 08/20/21 06:00 Pulse Ox 89 L 08/20/21 06:00 Intake & Output 08/19/21 08/20/21 08/20/21 18:59 06:59 18:59 Intake Total 2518.958 1221.212 51.709 Output Total 695 285 Balance 1823.958 936.212 51.709 Intake: IV 400 1025 Dextrose 5% in Water 1, 300 000 ml @ 100 mls/hr IV . [id number] STEPHANIE with Sodium Bicarb (1 Meq/ml) 150 ml Rx#:[id number] Piperacillin-Tazobactam 3 100 200 .375 gm In Sodium Chloride 0.9% 100 ml @ 25 mls/hr IVPB Q12HR [facility] Rx #:[id number] Sodium Chloride 0.9% 1, 825 000 ml @ 75 mls/hr IV . [id number] [facility] Rx#:[id number] Intake, IV Titration 1302.958 96.212 51.709 Amount Levofloxacin 500Mg-D5w 100 Pmx 500 mg In Dextrose/ Water 1 100ml.bag @ 100 mls/hr IVPB Q48H [facility] Rx#: [id number] Magnesium Sulfate-D5w Pmx 100 1 gm In Dextrose/Water 1 100ml.bag @ 100 mls/hr IVPB ONCE ONE Rx#: [id number] Norepinephrine 4 mg In 352.958 96.212 51.709 Sodium Chloride 0.9% 250 ml @ 0.05 MCG/KG/MIN 18. 578 mls/hr IV .[id number] [facility] Rx#:[id number] Sodium Chloride 0.9% 1, 750 000 ml @ 75 mls/hr IV . [id number] [facility] Rx#:[id number] Oral 240 100 Blood Product 576 Rc Pheresis 2 As3 Unit 276 [id number] Output: Urine 620 285 Stool 75 Other: Voiding Method Indwelling Catheter Indwelling Catheter - Exam GENERAL EXAM: Alert, very pleasant, 80-year-old white female, room air comfortable in no apparent distress. HEAD: Normocephalic/atraumatic. EYES: Normal reaction of pupils, equal size. Conjunctiva pink, sclera white. NOSE: Clear with pink turbinates. THROAT: No erythema or exudates. NECK: No masses, no JVD, no thyroid enlargement, no adenopathy. CHEST: No chest wall deformity. Symmetrical expansion. LUNGS: Equal air entry with no crackles, wheeze, rhonchi or dullness. CVS: Irregular rate and rhythm, normal S1 and S2, no gallops, no murmurs, no rubs ABDOMEN: Soft, nontender. No hepatosplenomegaly, normal bowel sounds, no guarding or rigidity. Right lower quadrant ileostomy is with small amount of green liquid output, and left lower quadrant colostomy with no output EXTREMITIES: No clubbing, mild edema involving the right lower extremity, and 2+ left lower extremity edema, no cyanosis, 2+ pulses and upper and lower extremities. MUSCULOSKELETAL: Muscle strength and tone normal. SPINE: No scoliosis or deformity SKIN: No rashes CENTRAL NERVOUS SYSTEM: Alert and oriented -3. No focal deficits, tone is normal in all 4 extremities. PSYCHIATRIC: Alert and oriented -3. Appropriate affect. Intact judgment and insight. - Labs CBC & Chem 7: 08/20/21 05:05 08/20/21 05:05 Labs: Abnormal Lab Results - Last 24 Hours (Table) 08/17/21 08/17/21 08/17/21 Range/Units 14:23 14:23 14:27 WBC (3.8-10.6) k/uL RBC (3.80-5.40) m/uL Hgb (11.4-16.0) gm/dL Hct (34.0-46.0) % RDW (11.5-15.5) % Neutrophils # (1.3-7.7) k/uL Lupus Anticoag aPTT >180 H (<43) Sec(s) Lupus Anticoag PTT Mix >180 H (<43) Sec(s) Dil Noel Viper Venom 104 H (<44) Sec(s) LA dRVVT Confirm Positive A (Negative) dRVVT 50:50 59 H (<44) Sec(s) Lupus Hexagonal Phase Positive A (Negative) Chloride (98-107) mmol/L BUN (7-17) mg/dL Creatinine (0.52-1.04) mg/dL POC Glucose (mg/dL) (75-99) mg/dL Calcium (8.4-10.2) mg/dL Alkaline Phosphatase (38-126) U/L Total Protein (6.3-8.2) g/dL Albumin (3.5-5.0) g/dL Albumin (PEP) 2.12 L (3.80-4.90) g/dL Ewdou-3-Fwmblqruf 0.56 H (0.10-0.40) g/dL Methylmalonic Acid 0.61 H (<0.40) umol/L Crossmatch 08/19/21 08/19/21 08/19/21 Range/Units 09:43 11:17 17:45 WBC (3.8-10.6) k/uL RBC (3.80-5.40) m/uL Hgb (11.4-16.0) gm/dL Hct (34.0-46.0) % RDW (11.5-15.5) % Neutrophils # (1.3-7.7) k/uL Lupus Anticoag aPTT (<43) Sec(s) Lupus Anticoag PTT Mix (<43) Sec(s) Dil Noel Viper Venom (<44) Sec(s) LA dRVVT Confirm (Negative) dRVVT 50:50 (<44) Sec(s) Lupus Hexagonal Phase (Negative) Chloride (98-107) mmol/L BUN (7-17) mg/dL Creatinine (0.52-1.04) mg/dL POC Glucose (mg/dL) 150 H 115 H (75-99) mg/dL Calcium (8.4-10.2) mg/dL Alkaline Phosphatase (38-126) U/L Total Protein (6.3-8.2) g/dL Albumin (3.5-5.0) g/dL Albumin (PEP) (3.80-4.90) g/dL Bvynj-1-Csuclkcso (0.10-0.40) g/dL Methylmalonic Acid (<0.40) umol/L Crossmatch See Detail 01/05/22 01/05/22 Range/Units 05:05 05:05 WBC 14.3 H (3.8-10.6) k/uL RBC 2.58 L (3.80-5.40) m/uL Hgb 7.9 L (11.4-16.0) gm/dL Hct 25.0 L (34.0-46.0) % RDW 16.8 H (11.5-15.5) % Neutrophils # 11.8 H (1.3-7.7) k/uL Lupus Anticoag aPTT (<43) Sec(s) Lupus Anticoag PTT Mix (<43) Sec(s) Dil Noel Viper Venom (<44) Sec(s) LA dRVVT Confirm (Negative) dRVVT 50:50 (<44) Sec(s) Lupus Hexagonal Phase (Negative) Chloride 108 H (98-107) mmol/L BUN 44 H (7-17) mg/dL Creatinine 3.47 H (0.52-1.04) mg/dL POC Glucose (mg/dL) (75-99) mg/dL Calcium 7.2 L (8.4-10.2) mg/dL Alkaline Phosphatase 158 H (38-126) U/L Total Protein 5.1 L (6.3-8.2) g/dL Albumin 2.1 L (3.5-5.0) g/dL Albumin (PEP) (3.80-4.90) g/dL Mhtpq-6-Wvgyiahqp (0.10-0.40) g/dL Methylmalonic Acid (<0.40) umol/L Crossmatch Microbiology - Last 24 Hours (Table) 08/17/21 01:25 Blood Culture - Preliminary Blood No Growth after 72 hours 08/16/21 01:41 Blood Culture - Preliminary Blood No Growth after 72 hours 08/17/21 11:00 Urine Culture - Final Urine,Voided Enterococcus faecium Escherichia coli Assessment and Plan Plan: Assessment: #1. Altered mental status related to toxic metabolic encephalopathy. In part due to acute urinary tract infection, acute kidney injury and recent history of COVID-19 infection, improving #2. PETE on top of CTD stage III, renal function is improving #3. Anion gap metabolic acidosis/lactic acidosis #4. Acute left lower leg DVT, was on heparin infusion which was discontinued in regards to vaginal bleeding, currently hemodynamically stable, we will start low-dose Eliquis Sarah milligrams twice daily #5. New onset A. fib with RVR, currently in sinus mechanism. #6. Acute leukocytosis, improving #7. Recent infection with COVID-19 without obvious COVID-19 associated pneumonia, patient is currently on oxygen with no signs of any respiratory distr ess #8. E. coli and enterococcus urinary tract infection, and the E. coli strain proved to be multidrug resistant with sensitivity to Zosyn, enterococcus with sensitivity to Levaquin #9. Uterus/pelvic mass with recent history of exploratory laparotomy, right colectomy and ileostomy with repair of umbilical hernia and mucus fistula in June 2021 #10. History of CHF with preserved LV function, moderate concentric LVH, EF of 65-70%, mild pulmonary hypertension with right-sided pressure 37 mmHg. #11. History of diabetes mellitus type 2 #12. History of hyperlipidemia #13. History of hypertension #14. Osteoarthritis #15. Chronic neuropathy #16. COPD #17. Acute on chronic anemia related to vaginal bleeding, and with the possibility of underlying [facility] malignancy, please refer to [facility] consultation and progress notes Plan: Hemodynamically patient stable, She is off vasopressor support She is in sinus mechanism No active bleeding overnight Today's blood work has been noted Patient has a recent history of left lower extremity DVT however we will check right lower extremity as well We'll start the patient on Eliquis 2,5 mg twice daily for recent history of DVT, and recent history of paroxysmal A. fib with RVR Monitor for any further bleeding Patient is on appropriate antibiotics for urosepsis Consult Dr. Reddy for recommendations for antibiotics Patient is stable to go out of intensive care unit to selective care today I performed a history & physical examination of the patient and discussed their management with my nurse practitioner, Mayra Garcia. I reviewed the nurse practitioner's note and agree with the documented findings and plan of care. Lung sounds are positive for diminished breath sounds throughout the lung hong. The findings and the impression was discussed with the patient. I attest to the documentation by the nurse practitioner. Time with Patient: Greater than 30
--- NOTE | 2021-08-20 09:51 | US ---
EXAMINATION TYPE: US venous doppler duplex LE BI DATE OF EXAM: 08/20/2021 9:35 AM COMPARISON: 08/17/2021 CLINICAL HISTORY: swelling in legs. Bilateral leg swelling, more pronounced on left leg, history of l eft leg DVT SIDE PERFORMED: Bilateral TECHNIQUE: The lower extremity deep venous system is examined utilizing real time linear array sonog michaela with graded compression, doppler sonography and color-flow sonography. VESSELS IMAGED: Common Femoral Vein Deep Femoral Vein Greater Saphenous Vein * Femoral Vein Popliteal Vein Small Saphenous Vein * Proximal Calf Veins (* superficial vessels) Right Leg: Negative for DVT Left Leg: Positive for DVT Thrombus of Left leg DVT, seen extending from calf vessels to Common Femoral Vein, Difficultly demons trating color flow in Prox Femoral artery during exam with post stenotic waveform seen in Mid Femoral artery IMPRESSION: 1. 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 2. No deep venous thrombosis in the right lower extremity at this time.
[2021-08-20] MEDS: ONDANSETRON 4 MG/2 ML VIAL IVP PRN (09:53)
[2021-08-20] MEDS: APIXABAN 2.5 MG TABLET PO SCH ×2 (10:11→22:47)
[2021-08-20 11:21] LABS: Glucose,Whole Blood 82 mg/dL (75-99)
--- NOTE | 2021-08-20 12:01 | P.PN ---
<YsabelMarisa kirby - Last Filed: 08/20/21 11:51> Subjective Progress Note Date: 08/20/21 CHIEF COMPLAINT: GI bleed HISTORY OF PRESENT ILLNESS: Patient admitted to the hospital with mental status changes. She's currently in the ICU. Patient sitting up in bed comfortably. Denies any abdominal pain. Eating only a small amount of her food. No nausea or vomiting reported. Stool through her ileostomy is brownish in color. No further evidence of bleeding. Also no further vaginal bleeding reported. Patient was placed on Eliquis today for the DVT and A. fib history. Afebrile. WBC down from 16.5-14.3. Hemoglobin after blood transfusion increased from 6.7 to 7.9. Patient on regular diet PHYSICAL EXAM: VITAL SIGNS: Reviewed. GENERAL: Well-developed in no acute distress. HEENT: No sclera icterus. Extraocular movements grossly intact. Moist buccal mucosa. Head is atraumatic, normocephalic. ABDOMEN: Soft. Nondistended. Nontender. Ileostomy output is brownish in color NEUROLOGIC: Awake. Confused. ASSESSMENT: 1. Acute GI bleed. Stool for occult blood positive. Episode of coffee-ground emesis on admission. Patient has no further evidence of GI bleeding 2. Acute on chronic Anemia with acute blood loss anemia 3. Enlarged uterus and pelvic mass. TECHNICAL ARTIST following and planning further workup outpatient. 4. Altered mental status 5. DVT left leg 6. A. fib 7. UTI PLAN: -Continue supportive care -Continue to monitor closely for signs or symptoms of GI bleeding -Continue to monitor hemoglobin -Further recommendations forthcoming per surgeon Physician Woodworking Belt Sander note has been reviewed by physician. Signing provider agrees with the documented findings, assessment, and plan of care. Objective - Vital Signs Vital signs: Vital Signs Temp 98 F 08/20/21 08:00 Pulse 62 08/20/21 11:00 Resp 12 08/20/21 11:00 BP 104/45 08/20/21 11:00 Pulse Ox 93 L 08/20/21 11:00 Intake & Output 08/19/21 08/20/21 08/20/21 18:59 06:59 18:59 Intake Total 2518.958 1221.212 451.709 Output Total 695 285 120 Balance 1823.958 936.212 331.709 Intake: IV 400 1025 400 Dextrose 5% in Water 1, 300 000 ml @ 100 mls/hr IV . [id number] STEPHANIE with Sodium Bicarb (1 Meq/ml) 150 ml Rx#:[id number] Piperacillin-Tazobactam 3 100 200 100 .375 gm In Sodium Chloride 0.9% 100 ml @ 25 mls/hr IVPB Q12HR COUNTS INCLUDE 234 BEDS AT THE [facility] Rx #:[id number] Sodium Chloride 0.9% 1, 825 300 000 ml @ 75 mls/hr IV . [id number] COUNTS INCLUDE 234 BEDS AT THE [facility] Rx#:[id number] Intake, IV Titration 1302.958 96.212 51.709 Amount Levofloxacin 500Mg-D5w 100 Pmx 500 mg In Dextrose/ Water 1 100ml.bag @ 100 mls/hr IVPB Q48H COUNTS INCLUDE 234 BEDS AT THE [facility] Rx#: [id number] Magnesium Sulfate-D5w Pmx 100 1 gm In Dextrose/Water 1 100ml.bag @ 100 mls/hr IVPB ONCE ONE Rx#: [id number] Norepinephrine 4 mg In 352.958 96.212 51.709 Sodium Chloride 0.9% 250 ml @ 0.05 MCG/KG/MIN 18. 578 mls/hr IV .[id number] COUNTS INCLUDE 234 BEDS AT THE [facility] Rx#:[id number] Sodium Chloride 0.9% 1, 750 000 ml @ 75 mls/hr IV . [id number] COUNTS INCLUDE 234 BEDS AT THE [facility] Rx#:[id number] Oral 240 100 Blood Product 576 Rc Pheresis 2 As3 Unit 276 [id number] Output: Urine 620 285 120 Stool 75 Other: Voiding Method Indwelling Catheter Indwelling Catheter Indwelling Catheter - Labs CBC & Chem 7: 08/20/21 05:05 08/20/21 05:05 Labs: Abnormal Lab Results - Last 24 Hours (Table) 08/17/21 08/17/21 08/17/21 Range/Units 14:23 14:23 14:27 WBC (3.8-10.6) k/uL RBC (3.80-5.40) m/uL Hgb (11.4-16.0) gm/dL Hct (34.0-46.0) % RDW (11.5-15.5) % Neutrophils # (1.3-7.7) k/uL Lupus Anticoag aPTT >180 H (<43) Sec(s) Lupus Anticoag PTT Mix >180 H (<43) Sec(s) Dil Noel Viper Venom 104 H (<44) Sec(s) LA dRVVT Confirm Positive A (Negative) dRVVT 50:50 59 H (<44) Sec(s) Lupus Hexagonal Phase Positive A (Negative) Chloride (98-107) mmol/L BUN (7-17) mg/dL Creatinine (0.52-1.04) mg/dL POC Glucose (mg/dL) (75-99) mg/dL Calcium (8.4-10.2) mg/dL Alkaline Phosphatase (38-126) U/L Total Protein (6.3-8.2) g/dL Albumin (3.5-5.0) g/dL Albumin (PEP) 2.12 L (3.80-4.90) g/dL Eienr-5-Tqesubpfa 0.56 H (0.10-0.40) g/dL Methylmalonic Acid 0.61 H (<0.40) umol/L Free [place] LC, Quant 23.00 H (0.33-1.94) mg/dL Free Lambda LC, Quant 11.65 H (0.57-2.63) mg/dL Crossmatch 08/19/21 08/19/21 08/20/21 Range/Units 09:43 17:45 05:05 WBC 14.3 H (3.8-10.6) k/uL RBC 2.58 L (3.80-5.40) m/uL Hgb 7.9 L (11.4-16.0) gm/dL Hct 25.0 L (34.0-46.0) % RDW 16.8 H (11.5-15.5) % Neutrophils # 11.8 H (1.3-7.7) k/uL Lupus Anticoag aPTT (<43) Sec(s) Lupus Anticoag PTT Mix (<43) Sec(s) Dil Noel Viper Venom (<44) Sec(s) LA dRVVT Confirm (Negative) dRVVT 50:50 (<44) Sec(s) Lupus Hexagonal Phase (Negative) Chloride (98-107) mmol/L BUN (7-17) mg/dL Creatinine (0.52-1.04) mg/dL POC Glucose (mg/dL) 115 H (75-99) mg/dL Calcium (8.4-10.2) mg/dL Alkaline Phosphatase (38-126) U/L Total Protein (6.3-8.2) g/dL Albumin (3.5-5.0) g/dL Albumin (PEP) (3.80-4.90) g/dL Uarfj-4-Jorlorrkb (0.10-0.40) g/dL Methylmalonic Acid (<0.40) umol/L Free [place] LC, Quant (0.33-1.94) mg/dL Free Lambda LC, Quant (0.57-2.63) mg/dL Crossmatch See Detail 08/20/21 Range/Units 05:05 WBC (3.8-10.6) k/uL RBC (3.80-5.40) m/uL Hgb (11.4-16.0) gm/dL Hct (34.0-46.0) % RDW (11.5-15.5) % Neutrophils # (1.3-7.7) k/uL Lupus Anticoag aPTT (<43) Sec(s) Lupus Anticoag PTT Mix (<43) Sec(s) Dil Noel Viper Venom (<44) Sec(s) LA dRVVT Confirm (Negative) dRVVT 50:50 (<44) Sec(s) Lupus Hexagonal Phase (Negative) Chloride 108 H (98-107) mmol/L BUN 44 H (7-17) mg/dL Creatinine 3.47 H (0.52-1.04) mg/dL POC Glucose (mg/dL) (75-99) mg/dL Calcium 7.2 L (8.4-10.2) mg/dL Alkaline Phosphatase 158 H (38-126) U/L Total Protein 5.1 L (6.3-8.2) g/dL Albumin 2.1 L (3.5-5.0) g/dL Albumin (PEP) (3.80-4.90) g/dL Mgoto-4-Jyhtogbxw (0.10-0.40) g/dL Methylmalonic Acid (<0.40) umol/L Free [employer] [place] LC, Quant (0.33-1.94) mg/dL Free Lambda LC, Quant (0.57-2.63) mg/dL Crossmatch Microbiology - Last 24 Hours (Table) 08/17/21 01:25 Blood Culture - Preliminary Blood No Growth after 72 hours 08/16/21 01:41 Blood Culture - Preliminary Blood No Growth after 72 hours 08/17/21 11:00 Urine Culture - Final Urine,Voided Enterococcus faecium Escherichia coli <Arash Bailey - Last Filed: 08/20/21 18:04> Subjective I have personally seen and examined the patient, 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 Based on total visit time, I have performed more than 50% of the visit. As above. Patient without new complaints. Still pleasantly confused. No further bleeding seen. Started back on blood thinners. Continue diet as tolerated. Will follow.. Objective - Vital Signs Vital signs: Vital Signs Temp 98.3 F 08/20/21 16:30 Pulse 69 08/20/21 17:00 Resp 16 08/20/21 17:00 BP 98/52 08/20/21 16:30 Pulse Ox 96 08/20/21 16:30 Intake & Output 08/19/21 08/20/21 08/20/21 18:59 06:59 18:59 Intake Total 2518.958 1221.212 901.709 Output Total 695 285 495 Balance 1823.958 936.212 406.709 Intake: IV 400 1025 850 Dextrose 5% in Water 1, 300 000 ml @ 100 mls/hr IV . [id number] STEPHANIE with Sodium Bicarb (1 Meq/ml) 150 ml Rx#:[id number] Piperacillin-Tazobactam 3 100 200 100 .375 gm In Sodium Chloride 0.9% 100 ml @ 25 mls/hr IVPB Q12HR COUNTS INCLUDE 234 BEDS AT THE [facility] Rx #:[id number] Sodium Chloride 0.9% 1, 825 750 000 ml @ 75 mls/hr IV . [id number] COUNTS INCLUDE 234 BEDS AT THE [facility] Rx#:[id number] Intake, IV Titration 1302.958 96.212 51.709 Amount Levofloxacin 500Mg-D5w 100 Pmx 500 mg In Dextrose/ Water 1 100ml.bag @ 100 mls/hr IVPB Q48H COUNTS INCLUDE 234 BEDS AT [facility] Rx#: [id number] Magnesium Sulfate-D5w Pmx 100 1 gm In Dextrose/Water 1 100ml.bag @ 100 mls/hr IVPB ONCE ONE Rx#: [id number] Norepinephrine 4 mg In 352.958 96.212 51.709 Sodium Chloride 0.9% 250 ml @ 0.05 MCG/KG/MIN 18. 578 mls/hr IV .[id number] COUNTS INCLUDE 234 BEDS AT THE [facility] Rx#:[id number] Sodium Chloride 0.9% 1, 750 000 ml @ 75 mls/hr IV . [id number] COUNTS INCLUDE 234 BEDS AT THE [facility] Rx#:[id number] Oral 240 100 Blood Product 576 Rc Pheresis 2 As3 Unit 276 [id number] Output: Urine 620 285 295 Stool 75 200 Other: Voiding Method Indwelling Catheter Indwelling Catheter Indwelling Catheter - Labs CBC & Chem 7: 08/20/21 05:05 08/20/21 05:05 Labs: Abnormal Lab Results - Last 24 Hours (Table) 08/17/21 08/17/21 08/20/21 Range/Units 14:23 14:27 05:05 WBC 14.3 H (3.8-10.6) k/uL RBC 2.58 L (3.80-5.40) m/uL Hgb 7.9 L (11.4-16.0) gm/dL Hct 25.0 L (34.0-46.0) % RDW 16.8 H (11.5-15.5) % Neutrophils # 11.8 H (1.3-7.7) k/uL Chloride (98-107) mmol/L BUN (7-17) mg/dL Creatinine (0.52-1.04) mg/dL POC Glucose (mg/dL) (75-99) mg/dL Calcium (8.4-10.2) mg/dL Alkaline Phosphatase (38-126) U/L Total Protein (6.3-8.2) g/dL Albumin (3.5-5.0) g/dL Methylmalonic Acid 0.61 H (<0.40) umol/L Free [employer] [place] LC, Quant 23.00 H (0.33-1.94) mg/dL Free Lambda LC, Quant 11.65 H (0.57-2.63) mg/dL 08/20/21 08/20/21 Range/Units 05:05 16:51 WBC (3.8-10.6) k/uL RBC (3.80-5.40) m/uL Hgb (11.4-16.0) gm/dL Hct (34.0-46.0) % RDW (11.5-15.5) % Neutrophils # (1.3-7.7) k/uL Chloride 108 H (98-107) mmol/L BUN 44 H (7-17) mg/dL Creatinine 3.47 H (0.52-1.04) mg/dL POC Glucose (mg/dL) 122 H (75-99) mg/dL Calcium 7.2 L (8.4-10.2) mg/dL Alkaline Phosphatase 158 H (38-126) U/L Total Protein 5.1 L (6.3-8.2) g/dL Albumin 2.1 L (3.5-5.0) g/dL Methylmalonic Acid (<0.40) umol/L Free [employer] [place] LC, Quant (0.33-1.94) mg/dL Free Lambda LC, Quant (0.57-2.63) mg/dL Microbiology - Last 24 Hours (Table) 08/17/21 01:25 Blood Culture - Preliminary Blood No Growth after 72 hours 08/16/21 01:41 Blood Culture - Preliminary Blood No Growth after 72 hours 08/17/21 11:00 Urine Culture - Final Urine,Voided Enterococcus faecium Escherichia coli
--- NOTE | 2021-08-20 12:23 | PN ---
PROGRESS NOTE Mrs Chao is in an atrial fibrillation. The rate is controlled and somewhat slower. We will decrease the metoprolol dose from 50 mg b.i.d. to 25 mg b.i.d. Her hemoglobin was low at 6.7 and she received a unit of packed RBCs. Even though she has atrial fibrillation, in view of her dropping hemoglobin and transfusions, we will hold anticoagulation for now and whenever it is safe, we can resume anticoagulation but for now we will continue with a reduced dose of beta bryan. The patient has multiple comorbid conditions. She is on a very small dose of Levophed which is being weaned off. Blood pressure is about 106/60, pulse rate is about 70-80. S1, S2 heard normally, short systolic murmur noted. Irregular rhythm noted. Lungs reveal diminished air entry. Abdomen is soft. Rest of physical exam unchanged. I will continue to see her as needed. MMODL / IJN: [id number] /
--- NOTE | 2021-08-20 14:46 | P.PN ---
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 Quiñonez, and recent admission from 07/29/21-08/04/21 for acute respiratory failure with hypoxia secondary to Covid 19 pneumonitis. Patient presented to the emergency department by EMS with a chief complaint of alteration in mental status, nausea and coffee ground emesis. Patient underwent full evaluation. She was found to be tachycardic 120s to 140s, to 20-24 breaths per minute, hypoxic requiring oxygen supplementation with placement on nonrebreather, and found to have a low-grade temp of 99.9F. EKG revealed atrial fibrillation with a rapid ventricular rate of 148 bpm. Labs revealed significant leukocytosis with WBC count 28.4, anemic with hemoglobin of 9.7, hyperkalemic with potassium 5.4, acidotic with chloride 107, CO2 8, anion gap 22, and plasma lactic acid of 5.0 acute kidney injury with BUN 60, creatinine 4.84, and GFR of 8 with baseline creatinine of 1.8-2.0. Troponins were elevated at 0.062 and 0.054. Pro-calcitonin also elevated at 1.50. Urinalysis positive for infection. Chest x-ray showing mild pulmonary fibrotic changes with no evidence of heart failure or acute cardiopulmonary process. CT chest, abdomen, and pelvis without contrast revealed no evidence of bowel obstruction with no free air however there was a reported new complex 6 x 4 cm cyst on right ovary which is reported being new compared to previous exam. Left lower extremity Dopplers were positive for DVT extending from the left popliteal vein to the femoral vein. Patient was started on heparin infusion for treatment of acute DVT, Cardizem infusion for atrial fibrillation with RVR, bicarb infusion for severe metabolic acidosis with a critical bicarb of 8. Given sepsis bolus of 3 L normal saline and started on IV antibiotics Zosyn and Levaquin. Consultations were placed general surgery for concerns of GI bleed, cardiology for elevated troponin and A. fib RVR, nephrology for acute renal failure and severe metabolic acidosis requiring bicarbonate infusion, and hematology secondary to development of DVT while on oral anticoagulant. Consult was also placed to document analyst secondary to critically ill patient, at this time patient awaiting bed placement on stepdown unit. Called to update patient's son, Yanick, I spoke with him and updated him on mother's critical condition. 08/18: Patient remains in the intensive care unit. She's been on amiodarone and heparin for A. fib with RVR, she is currently on norepinephrine and also receiving magnesium replacement. Patient has black stool in her ostomy and heparin will be discontinued. Abdomen is firm. Consult is in place with general surgery and she has been cleared to start diet. Patient is seen and followed by multiple consultants including oncology, cardiology, nephrology and document analyst. Echocardiogram reveals EF of 65-70%, aneurysmal intra-atrial septum, mild tricuspid regurgitation, no aortic stenosis or regurgitation. Mild mitral ossification. Mild pulmonary hypertension, RVSP 37.19.. Pulmonary perfusion study showed small perfusion defects correspond to low probability for pulmonary embolism. 08/19: She remains in the intensive care unit and on norepinephrine. She has been afebrile, heart rate 68, blood pressure 106/41 and pulse ox 93% on room air. Hemoglobin this morning is 6.7 and 1 unit of packed RBCs has been ordered. Patient has liquid dark brown stool in her ostomy bag. Other blood work reveals BUN of 49 creatinine 3.56 which is improving. Blood sugars are running between 67 and 150. We'll discontinue scheduled NovoLog as patient is now off drips containing D5W. Bicarbonate drip discontinued. Patient remains confused. Urine culture is showing group D enterococcus and gram-negative bacilli. Blood culture no growth at 48 hours 2 specimens. 08/20: Patient is seen today in the emergency center. She is off vasopressors and has been downgraded to the cardiac stepdown unit. Patient is more oriented today. She denies having any shortness of breath or cough. Output from ostomy is brown liquid, no blood noted. Patient denies abdominal pain. She is still not eating very much but no nausea or vomiting. Patient received 1 unit of packed RBCs yesterday and hemoglobin is 7.9. WBC 14.3, platelet count 177. BUN 44 and creatinine 3.47. Blood sugars are running between 82 and 150s. Urine culture finalized with Enterococcus faecium and E. coli. Patient has been resumed on eliquis. Review Of Systems: Constitutional: No documented fever, no chills, no night sweats. No weight change. Noted weakness, fatigue. No daytime sleepiness. EENT: No headache. No blurred vision or double vision, no loss of vision. No loss of Hearing, no ringing in the ears, no dizziness. No nasal drainage or congestion. No epistaxis. No sore throat. Lungs: No shortness of breath, cough, no sputum production. No wheezing. Cardiovascular: No chest pain, no lower extremity edema. No palpitations. No paroxysmal nocturnal dyspnea. No orthopnea. No lightheadedness or dizziness. No syncopal episodes. Abdominal: No abdominal pain. No nausea, vomiting. No diarrhea. No constipation. No bloody or tarry stools.. Noted loss of appetite. Genitourinary: No dysuria, increased frequency, urgency. No urinary retention. Musculoskeletal: No myalgias. No muscle weakness, no gait dysfunction, no frequent falls. No back pain. No neck pain. Integumentary: No wounds, no lesions. No rash or pruritus. No unusual bruising. No change in hair or nails. Neurologic: No aphasia. No facial droop. No change in mentation. No head injury. No headache. No paralysis. No paresthesia. Psychiatric: No depression. No anxiety. No mood swings. Endocrine: No abnormal blood sugars. No weight change. No excessive sweating or thirst. No cold intolerance. Physical exam: Gen: This is an elderly frail appearing 80-year-old female, resting in bed in no acute distress. Patient is seen today in the intensive care unit. HEENT: Head is atraumatic, normocephalic. Pupils equal, round. Sclerae is anicteric. Patient is edentulous. NECK: Supple. No JVD. No lymphadenopathy. No thyromegaly. LUNGS: Decreased breath some bilateral rhonchi and mild expiratory wheezes. HEART: Irregular rate and rhythm. Monitor atrial fibrillation. ABDOMEN: Abdomen firm, no rebound or rigidity. Ostomy on the right side with brown liquid stool. Beckett catheter draining nicolette urine EXTREMITIES: No pedal edema. No calf tenderness. NEUROLOGICAL: Patient is awake, alert and oriented to person, mental status seems to be slightly improved today. Cranial nerves 2 through 12 are grossly intact. Assessment and Plan of Care: Metabolic encephalopathy, Likely multifactorial resulting from current critical state with severe metabolic acidosis, severe sepsis, PETE, and following conditions listed below. Severe sepsis with septic shock requiring vasopressors of unclear etiology possibly urinary tract infection versus other source such as abdominal Continue care in the intensive care unit, document analyst consult appreciated.continue Levaquin, Zosyn, vasopressor support has been discontinued Acute GI bleed with reports of coffee-ground emesis Acute on chronic anemia slightly below baseline hemoglobin of 9, acute blood loss anemia Continue Protonix 40 mg IV twice daily, general surgery consult, diet advanced to regular. Continue to monitor hemoglobin. Heparin drip discontinued. Patient status post transfusion 1 unit of packed RBCs. Acute DVT of left lower extremity Acute hypoxic respiratory failure, recent admission for Covid 19 pneumonitis from 07/29/21 through 08/04/21 Pulmonary embolus ruled out. Acute kidney injury on chronic kidney disease stage III Severe Metabolic acidosis Lactic acidosis Enterococcus faecium and E. coli UTI -Consult nephrology -Insert Beckett catheter for close monitoring of I's and O's. -Continue Zosyn and Levaquin -Caution with nephrotoxic medications. Atrial fibrillation with RVR, paroxysmal atrial fibrillation Elevated troponin, flat, likely secondary to RVR Chronic diastolic heart failure with previously known EF of 55-60% Off Cardizem drip, cardiology consult appreciated, continue Lopressor 25 mg twice daily, eliquis 2.5 mg twice daily started today. Diabetes mellitus type 2 insulin requiring, uncontrolled with hyperglycemia. Continue NovoLog scale, add NovoLog 5 units with meals Incidental finding on imaging -CT reported new complex 6 x 4 cm cyst on right ovary which is reported being new compared to previous exam -Previous surgical report from 06/20/21 stated findings of a 3.5 cm lesion on right ovary concerning for potential ovarian cancer Oncology consult appreciated Hypertension. Patient is off anti-hypertensive medications. Hyperlipidemia CODE STATUS: Full code DVT prophylaxis: SCDs and FAHEEM hose DISCHARGE PLAN Subacute rehab at [facility] Impression and plan of care have been directed as dictated by the signing physician. Thais Scott nurse practitioner acting as scribe for signing physician. Objective - Vital Signs Vital signs: Vital Signs Temp 98.0 F 08/20/21 12:00 Pulse 64 08/20/21 12:00 Resp 22 08/20/21 12:00 BP 119/44 08/20/21 12:00 Pulse Ox 96 08/20/21 12:00 Intake & Output 08/19/21 08/20/21 08/20/21 18:59 06:59 18:59 Intake Total 2518.958 1221.212 601.709 Output Total 695 285 395 Balance 1823.958 936.212 206.709 Intake: IV 400 1025 550 Dextrose 5% in Water 1, 300 000 ml @ 100 mls/hr IV . [id number] [facility] with Sodium Bicarb (1 Meq/ml) 150 ml Rx#:[id number] Piperacillin-Tazobactam 3 100 200 100 .375 gm In Sodium Chloride 0.9% 100 ml @ 25 mls/hr IVPB Q12HR [facility] Rx #:[id number] Sodium Chloride 0.9% 1, 825 450 000 ml @ 75 mls/hr IV . [id number] [facility] Rx#:[id number] Intake, IV Titration 1302.958 96.212 51.709 Amount Levofloxacin 500Mg-D5w 100 Pmx 500 mg In Dextrose/ Water 1 100ml.bag @ 100 mls/hr IVPB Q48H [facility] Rx#: [id number] Magnesium Sulfate-D5w Pmx 100 1 gm In Dextrose/Water 1 100ml.bag @ 100 mls/hr IVPB ONCE ONE Rx#: [id number] Norepinephrine 4 mg In 352.958 96.212 51.709 Sodium Chloride 0.9% 250 ml @ 0.05 MCG/KG/MIN 18. 578 mls/hr IV .[id number] [facility] Rx#:[id number] Sodium Chloride 0.9% 1, 750 000 ml @ 75 mls/hr IV . [id number] [facility] Rx#:[id number] Oral 240 100 Blood Product 576 Rc Pheresis 2 As3 Unit 276 [id number] Output: Urine 620 285 195 Stool 75 200 Other: Voiding Method Indwelling Catheter Indwelling Catheter Indwelling Catheter - Labs CBC & Chem 7: 08/20/21 05:05 08/20/21 05:05 Labs: Abnormal Lab Results - Last 24 Hours (Table) 08/17/21 08/17/21 08/17/21 Range/Units 14:23 14:23 14:27 WBC (3.8-10.6) k/uL RBC (3.80-5.40) m/uL Hgb (11.4-16.0) gm/dL Hct (34.0-46.0) % RDW (11.5-15.5) % Neutrophils # (1.3-7.7) k/uL Lupus Anticoag aPTT >180 H (<43) Sec(s) Lupus Anticoag PTT Mix >180 H (<43) Sec(s) Dil Noel Viper Venom 104 H (<44) Sec(s) LA dRVVT Confirm Positive A (Negative) dRVVT 50:50 59 H (<44) Sec(s) Lupus Hexagonal Phase Positive A (Negative) Chloride (98-107) mmol/L BUN (7-17) mg/dL Creatinine (0.52-1.04) mg/dL POC Glucose (mg/dL) (75-99) mg/dL Calcium (8.4-10.2) mg/dL Alkaline Phosphatase (38-126) U/L Total Protein (6.3-8.2) g/dL Albumin (3.5-5.0) g/dL Albumin (PEP) 2.12 L (3.80-4.90) g/dL Fsrlu-7-Qaccuccbc 0.56 H (0.10-0.40) g/dL Methylmalonic Acid 0.61 H (<0.40) umol/L Free [place] LC, Quant 23.00 H (0.33-1.94) mg/dL Free Lambda LC, Quant 11.65 H (0.57-2.63) mg/dL Crossmatch 08/19/21 08/19/21 08/20/21 Range/Units 09:43 17:45 05:05 WBC 14.3 H (3.8-10.6) k/uL RBC 2.58 L (3.80-5.40) m/uL Hgb 7.9 L (11.4-16.0) gm/dL Hct 25.0 L (34.0-46.0) % RDW 16.8 H (11.5-15.5) % Neutrophils # 11.8 H (1.3-7.7) k/uL Lupus Anticoag aPTT (<43) Sec(s) Lupus Anticoag PTT Mix (<43) Sec(s) Dil Noel Viper Venom (<44) Sec(s) LA dRVVT Confirm (Negative) dRVVT 50:50 (<44) Sec(s) Lupus Hexagonal Phase (Negative) Chloride (98-107) mmol/L BUN (7-17) mg/dL Creatinine (0.52-1.04) mg/dL POC Glucose (mg/dL) 115 H (75-99) mg/dL Calcium (8.4-10.2) mg/dL Alkaline Phosphatase (38-126) U/L Total Protein (6.3-8.2) g/dL Albumin (3.5-5.0) g/dL Albumin (PEP) (3.80-4.90) g/dL Xcebb-7-Mztiqrgqa (0.10-0.40) g/dL Methylmalonic Acid (<0.40) umol/L Free [place] LC, Quant (0.33-1.94) mg/dL Free Lambda LC, Quant (0.57-2.63) mg/dL Crossmatch See Detail 08/20/21 Range/Units 05:05 WBC (3.8-10.6) k/uL RBC (3.80-5.40) m/uL Hgb (11.4-16.0) gm/dL Hct (34.0-46.0) % RDW (11.5-15.5) % Neutrophils # (1.3-7.7) k/uL Lupus Anticoag aPTT (<43) Sec(s) Lupus Anticoag PTT Mix (<43) Sec(s) Dil Noel Viper Venom (<44) Sec(s) LA dRVVT Confirm (Negative) dRVVT 50:50 (<44) Sec(s) Lupus Hexagonal Phase (Negative) Chloride 108 H (98-107) mmol/L BUN 44 H (7-17) mg/dL Creatinine 3.47 H (0.52-1.04) mg/dL POC Glucose (mg/dL) (75-99) mg/dL Calcium 7.2 L (8.4-10.2) mg/dL Alkaline Phosphatase 158 H (38-126) U/L Total Protein 5.1 L (6.3-8.2) g/dL Albumin 2.1 L (3.5-5.0) g/dL Albumin (PEP) (3.80-4.90) g/dL Ikyoy-5-Qxtnryiws (0.10-0.40) g/dL Methylmalonic Acid (<0.40) umol/L Free [place] LC, Quant (0.33-1.94) mg/dL Free Lambda LC, Quant (0.57-2.63) mg/dL Crossmatch Microbiology - Last 24 Hours (Table) 08/17/21 01:25 Blood Culture - Preliminary Blood No Growth after 72 hours 08/16/21 01:41 Blood Culture - Preliminary Blood No Growth after 72 hours 08/17/21 11:00 Urine Culture - Final Urine,Voided Enterococcus faecium Escherichia coli
[2021-08-20 16:53] LABS: Glucose,Whole Blood 122 mg/dL (75-99)
[2021-08-20 20:19] LABS: Glucose,Whole Blood 89 mg/dL (75-99)
[2021-08-20] MEDS: PRAVASTATIN SODIUM 40 MG TAB PO SCH (22:48)
[2021-08-21 00:17] LABS: Glucose,Whole Blood 75 mg/dL (75-99)
[2021-08-21] MEDS: SODIUM CHLORIDE 0.9% 1,000 ML IV SCH ×3 (06:44→21:54)
[2021-08-21 06:49] LABS: Glucose,Whole Blood 72 mg/dL (75-99)
[2021-08-21] MEDS: INSULIN ASPART (NovoLOG) 100 UNIT/ML VIAL SQ SCH ×4 (06:58→21:35)
[2021-08-21 08:09] LABS: Albumin 2.2 g/dL (3.5-5.0); Calcium 7.6 mg/dL (8.4-10.2); Potassium 3.6 mmol/L (3.5-5.1); Total Bilirubin 0.7 mg/dL (0.2-1.3); Total Protein 5.4 g/dL (6.3-8.2)
[2021-08-21 08:52] LABS: Anisocytosis Slight; Basophils % (A) 0 %; Eosinophils # (A) 0.2 k/uL (0-0.7); Eosinophils % (A) 2 %; HCT 28.6 % (34.0-46.0); HGB 8.9 gm/dL (11.4-16.0); Hypochromasia Marked; Lymphocytes % (A) 9 %; MCH 31.1 pg (25.0-35.0); MCHC 31.1 g/dL (31.0-37.0); MCV 100.1 fL (80.0-100.0); Macrocytosis Slight; Mean Platelet Volume 8.9; Monocytes # (A) 0.6 k/uL (0-1.0); Monocytes % (A) 6 %; Neutrophils # (A) 9.2 k/uL (1.3-7.7); Neutrophils % (A) 81 %; Platelet Count 188 k/uL (150-450); Poikilocytosis Slight; RBC 2.86 m/uL (3.80-5.40); WBC 11.3 k/uL (3.8-10.6)
[2021-08-21] MEDS: PANTOPRAZOLE 40 MG/10 ML VIAL IVP SCH ×2 (08:55→21:53)
[2021-08-21] MEDS: FAMOTIDINE 20 MG/2 ML VIAL IV SCH (08:56)
[2021-08-21] MEDS: METOPROLOL TARTRATE 25 MG TAB PO SCH ×2 (08:56→21:53)
[2021-08-21] MEDS: FLUoxetine HCL 20 MG CAP PO SCH (08:56)
[2021-08-21] MEDS: PIPERACILLIN-TAZOBACTAM 3.375 GM in SODIUM CHLORIDE 0.9% 100 ML IVPB SCH ×2 (08:56→21:54)
[2021-08-21] MEDS: APIXABAN 2.5 MG TABLET PO SCH ×2 (08:56→21:54)
--- NOTE | 2021-08-21 09:08 | P.PN ---
Subjective Progress Note Date: 08/21/21 Reordered Anti-beta glyco, ordered wednesday, not performed. needed for poss antiphospholipid syndrome work-up, patient remains in the care of icu. hemoglobin stable today however required PRBC 2 days prior. Appears to have component of blood loss anemia, will need to hold off on Parental Iron due to infection. PUBLIC WORKS DIRECTOR has seen patient regarding vaginal bleeding. Patient does have new DVT in LE, eliquis dosage is subtherapeutic at this time. General surgery is following and a full GI evaluation is still recommended to achieve therapeutic anticoagulation or could consider retractable IVC as PPT was low probability PE. Objective - Vital Signs Vital signs: Vital Signs Temp 98.4 F 08/21/21 04:00 Pulse 60 08/21/21 04:00 Resp 13 08/20/21 19:00 BP 108/79 08/21/21 04:00 Pulse Ox 92 L 08/21/21 04:00 Intake & Output 08/20/21 08/21/21 08/21/21 18:59 06:59 18:59 Intake Total 626.482 8970 Output Total 495 700 Balance 406.709 300 Weight 79.2 kg Intake: IV 850 1000 Piperacillin-Tazobactam 3 100 100 .375 gm In Sodium Chloride 0.9% 100 ml @ 25 mls/hr IVPB Q12HR [facility] Rx #:[id number] Sodium Chloride 0.9% 1, 750 900 000 ml @ 75 mls/hr IV . [id number] [facility] Rx#:[id number] Intake, IV Titration 51.709 Amount Norepinephrine 4 mg In 51.709 Sodium Chloride 0.9% 250 ml @ 0.05 MCG/KG/MIN 18. 578 mls/hr IV .[id number] [facility] Rx#:[id number] Output: Urine 295 700 Stool 200 Other: Voiding Method Indwelling Catheter Indwelling Catheter - Labs CBC & Chem 7: 08/21/21 07:27 08/21/21 07:27 Labs: Abnormal Lab Results - Last 24 Hours (Table) 08/17/21 08/17/21 08/20/21 Range/Units 14:23 14:27 16:51 WBC (3.8-10.6) k/uL RBC (3.80-5.40) m/uL Hgb (11.4-16.0) gm/dL Hct (34.0-46.0) % MCV (80.0-100.0) fL RDW (11.5-15.5) % Neutrophils # (1.3-7.7) k/uL Chloride (98-107) mmol/L BUN (7-17) mg/dL Creatinine (0.52-1.04) mg/dL POC Glucose (mg/dL) 122 H (75-99) mg/dL Calcium (8.4-10.2) mg/dL Alkaline Phosphatase (38-126) U/L Total Protein (6.3-8.2) g/dL Albumin (3.5-5.0) g/dL Methylmalonic Acid 0.61 H (<0.40) umol/L Free [place] LC, Quant 23.00 H (0.33-1.94) mg/dL Free Lambda LC, Quant 11.65 H (0.57-2.63) mg/dL 08/21/21 08/21/21 08/21/21 Range/Units 06:47 07:27 07:27 WBC 11.3 H (3.8-10.6) k/uL RBC 2.86 L (3.80-5.40) m/uL Hgb 8.9 L (11.4-16.0) gm/dL Hct 28.6 L (34.0-46.0) % MCV 100.1 H (80.0-100.0) fL RDW 17.0 H (11.5-15.5) % Neutrophils # 9.2 H (1.3-7.7) k/uL Chloride 110 H (98-107) mmol/L BUN 39 H (7-17) mg/dL Creatinine 3.27 H (0.52-1.04) mg/dL POC Glucose (mg/dL) 72 L (75-99) mg/dL Calcium 7.6 L (8.4-10.2) mg/dL Alkaline Phosphatase 151 H (38-126) U/L Total Protein 5.4 L (6.3-8.2) g/dL Albumin 2.2 L (3.5-5.0) g/dL Methylmalonic Acid (<0.40) umol/L Free [place] LC, Quant (0.33-1.94) mg/dL Free Lambda LC, Quant (0.57-2.63) mg/dL Microbiology - Last 24 Hours (Table) 08/17/21 01:25 Blood Culture - Preliminary Blood No Growth after 96 hours 08/16/21 01:41 Blood Culture - Preliminary Blood No Growth after 96 hours Assessment and Plan (1) DVT (deep venous thrombosis) Current Visit: Yes Status: Acute Code(s): I82.409 - ACUTE EMBOLISM AND THOMBOS UNSP DEEP VN UNSP LOWER EXTREMITY SNOMED Code(s): 872624649 (2) MGUS (monoclonal gammopathy of unknown significance) Current Visit: Yes Status: Acute Code(s): D47.2 - MONOCLONAL GAMMOPATHY SNOMED Code(s): 814447796 (3) Normocytic anemia Current Visit: Yes Status: Acute Code(s): D64.9 - ANEMIA, UNSPECIFIED SNOMED Code(s): 388539796 (4) Acute abdominal pain Current Visit: No Status: Acute Code(s): R10.9 - UNSPECIFIED ABDOMINAL PAIN SNOMED Code(s): 659151781 (5) Leukocytosis Current Visit: No Status: Acute Code(s): D72.829 - ELEVATED WHITE BLOOD CELL COUNT, UNSPECIFIED SNOMED Code(s): 135419038 (6) Stage 3 chronic kidney disease due to benign hypertension Current Visit: No Status: Acute Code(s): I12.9 - HYPERTENSIVE CHRONIC KIDNEY DISEASE W STG 1-4/UNSP CHR KDNY; N18.30 - CHRONIC KIDNEY DISEASE, STAGE 3 UNSPECIFIED SNOMED Code(s): 108565189650131 (7) Hypotension Current Visit: Yes Status: Acute Code(s): I95.9 - HYPOTENSION, UNSPECIFIED SNOMED Code(s): 68836234 (8) Acute kidney injury Current Visit: Yes Status: Acute Code(s): N17.9 - ACUTE KIDNEY FAILURE, UNSPECIFIED SNOMED Code(s): 64415698 (9) Altered mental status Current Visit: Yes Status: Acute Code(s): R41.82 - ALTERED MENTAL STATUS, UNSPECIFIED SNOMED Code(s): 156062511 (10) Macrocytosis Current Visit: Yes Status: Acute Code(s): D75.89 - OTHER SPECIFIED DISEASES OF BLOOD AND BLOOD-FORMING ORGANS SNOMED Code(s): 235311648
--- NOTE | 2021-08-21 09:13 | XR ---
EXAMINATION TYPE: XR chest 1V portable DATE OF EXAM: 08/21/2021 CLINICAL HISTORY: Difficulty breathing progress study. TECHNIQUE: Single AP portable upright view of the chest is obtained. COMPARISON: Chest x-ray from one day earlier. CT 4 days ago. FINDINGS: Stable slightly coiled right subclavian central venous catheter. Cardiac silhouette size stable and mildly enlarged. There are chronic parenchymal changes bilaterally with persistent patchy left basilar opacity. New small to tiny right pleural effusion seen. Osseous structures are intact. Calcified nodules or benign granulomas in both lung bases redemonstrated. IMPRESSION: Mild cardiomegaly and chronic parenchymal changes with left basilar acute infiltrate and/ or atelectasis redemonstrated. No significant change from one day earlier. New Small to tiny right p leural effusion noted.
[2021-08-21] MEDS ORDERED: POTASSIUM CHLORIDE ER 20 MEQ TAB.ER PO STA (09:31)
--- NOTE | 2021-08-21 09:32 | P.PN ---
Subjective Patient is seen in follow-up for acute kidney injury on chronic kidney disease. Renal function a little better today. Nonoliguric. On 4 L nasal cannula. Off vasopressors. Receiving IV fluids. Vital signs are stable. HEENT: Head exam is unremarkable. LUNGS:Breath sounds decreased. HEART: Regular rate and rhythm. ABDOMEN: Soft, no distention. EXTREMITITES: 1+ edema left lower extremity. No edema in the right lower extremity. Objective - Vital Signs Vital signs: Vital Signs Temp 98.4 F 08/21/21 04:00 Pulse 60 08/21/21 04:00 Resp 13 08/20/21 19:00 BP 108/79 08/21/21 04:00 Pulse Ox 92 L 08/21/21 04:00 Intake & Output 08/20/21 08/21/21 08/21/21 18:59 06:59 18:59 Intake Total 058.259 2742 Output Total 495 700 Balance 406.709 300 Weight 79.2 kg Intake: IV 850 1000 Piperacillin-Tazobactam 3 100 100 .375 gm In Sodium Chloride 0.9% 100 ml @ 25 mls/hr IVPB Q12HR [facility] Rx #:[id number] Sodium Chloride 0.9% 1, 750 900 000 ml @ 75 mls/hr IV . [id number] [facility] Rx#:[id number] Intake, IV Titration 51.709 Amount Norepinephrine 4 mg In 51.709 Sodium Chloride 0.9% 250 ml @ 0.05 MCG/KG/MIN 18. 578 mls/hr IV .[id number] [facility] Rx#:[id number] Output: Urine 295 700 Stool 200 Other: Voiding Method Indwelling Catheter Indwelling Catheter - Labs CBC & Chem 7: 08/21/21 07:27 08/21/21 07:27 Labs: Abnormal Lab Results - Last 24 Hours (Table) 08/17/21 08/20/21 08/21/21 Range/Units 14:23 16:51 06:47 WBC (3.8-10.6) k/uL RBC (3.80-5.40) m/uL Hgb (11.4-16.0) gm/dL Hct (34.0-46.0) % MCV (80.0-100.0) fL RDW (11.5-15.5) % Neutrophils # (1.3-7.7) k/uL Chloride (98-107) mmol/L BUN (7-17) mg/dL Creatinine (0.52-1.04) mg/dL POC Glucose (mg/dL) 122 H 72 L (75-99) mg/dL Calcium (8.4-10.2) mg/dL Alkaline Phosphatase (38-126) U/L Total Protein (6.3-8.2) g/dL Albumin (3.5-5.0) g/dL Free [place] LC, Quant 23.00 H (0.33-1.94) mg/dL Free [place]ambda LC, Quant 11.65 H (0.57-2.63) mg/dL 08/21/21 08/21/21 Range/Units 07:27 07:27 WBC 11.3 H (3.8-10.6) k/uL RBC 2.86 L (3.80-5.40) m/uL Hgb 8.9 L (11.4-16.0) gm/dL Hct 28.6 L (34.0-46.0) % MCV 100.1 H (80.0-100.0) fL RDW 17.0 H (11.5-15.5) % Neutrophils # 9.2 H (1.3-7.7) k/uL Chloride 110 H (98-107) mmol/L BUN 39 H (7-17) mg/dL Creatinine 3.27 H (0.52-1.04) mg/dL POC Glucose (mg/dL) (75-99) mg/dL Calcium 7.6 L (8.4-10.2) mg/dL Alkaline Phosphatase 151 H (38-126) U/L Total Protein 5.4 L (6.3-8.2) g/dL Albumin 2.2 L (3.5-5.0) g/dL Free [place] LC, Quant (0.33-1.94) mg/dL Free Lambda LC, Quant (0.57-2.63) mg/dL Microbiology - Last 24 Hours (Table) 08/17/21 01:25 Blood Culture - Preliminary Blood No Growth after 96 hours 08/16/21 01:41 Blood Culture - Preliminary Blood No Growth after 96 hours Assessment and Plan Plan: Assessment: 1. Acute kidney injury mostly prerenal secondary to hypovolemia and hemodynamic instability. Creatinine 4.84 on admission - 3.27 today. Non-oliguric. No hydronephrosis noted on CAT scan. 2. Chronic kidney disease stage IIIa with baseline creatinine in the range of 1.3-1.5 secondary to diabetic kidney disease. 3. Left lower extremity DVT. On anticoagulation. 4. A. fib with RVR maintained on metoprolol. 5. Metabolic acidosis secondary to acute kidney injury. s/p bicarbonate drip. 6. Diabetes mellitus. 7. Hypomagnesemia from poor intake. Replaced. Better. 8. Septic shock secondary to UTI. Urine culture positive for enterococcus. 9. Acute blood loss anemia. Status post blood transfusion 08/19/2021. Improve d. No active bleeding. 10. Hypokalemia from poor intake. Replaced. Plan: Decreased rate of IVFs. Replace potassium. 40 mEq today. Avoid nephrotoxins. Preserved ejection fraction. Continue to monitor renal function and urine output. Add Aranesp.
[2021-08-21] MEDS: LEVOFLOXACIN 500MG-D5W PMX 500 MG in DEXTROSE/WATER 1 100ML.BAG IVPB SCH (09:44)
--- NOTE | 2021-08-21 09:54 | P.PN ---
Subjective Progress Note Date: 08/21/21 Principal diagnosis: Altered mental status, acute kidney injury, acute left lower extremity DVT, new onset A. fib with RVR This is a 80-year-old female patient who came into the emergency department with altered mental status. No family was available in the emergency department. The patient is unable to provide any history whatsoever. Apparently, the patient was hospitalized earlier and she was discharged from the hospital on 08/04/2021 after being treated for acute hypoxic respiratory failure secondary to COVID 19 related pneumonia and during the course of her evaluation or hospitalization, the patient had an acute kidney injury secondary to ATN and infection/sepsis secondary to underlying urine checked infection with multidrug resistant E. coli. Ultimately, the patient's condition was stabilized and she was discharged home with home care. She is known to have multiple medical problems including a previous history of a questionable pelvic mass, previous history of a right sided colectomy with diverting ileostomy, CHF, diabetes mellitus type 2, chronic stage IIIB kidney disease, chronic peripheral neuropathy, hyperlipidemia, chronic anemia and COPD. She is also known to have CHF along with history approximately atrial fibrillation. During this current admission, the patient apparently was not eating in her condition was progressively getting worse and she comes in with mental status change. In the emergency department, the patient was found to be in atrial fibrillation with rapid ventricular response. She was hypotensive. She was also found to be in acute kidney injury and she had severe anion gap metabolic acidosis. Her serum bicarb was 8 and LDL was 60 with a creatinine of 4.8 consistent with an acute on top of chronic kidney failure and the patient also had a lactic acid level as high as 5.0 with some troponin leaks. The white cell count was abnormal and the patient underwent white cell count of 28.4 with a hemoglobin of 0.7 and follow-up levels showed a drop in hemoglobin down to 8.7 and at the same time the patient normal correlation profile, UA was abnormal consistent with underlying urine checked infection. Stool occult blood was positive. Urine drug screen was negative. History of colon cancer was inserted in the emergency department. The chest x-ray showed a fall with right subclavian triple-lumen catheter which is essentially functional. There was no pulmonary consolidation. The CAT scan of the chest abdomen and pelvis was done and showed colectomy and diverting ileostomy and there was evidence of any free air in the abdomen. The Doppler of the lower activity was also done and the patient was found to have DVT in the left popliteal vein extending to the common vein and ultrasound the kidney was done that showed limited view without any acute ultrasonic changes. The patient currently is on Cardizem drip regarding her atrial fibrillation. The patient is on Cardizem drip at 5 mg an hour for rate control. The patient is also on IV heparin per protocol. The patient covered with empiric antibiotic coverage and she was given accommodation of Zosyn and Levaquin. She was also started on a bicarb infusion which is currently running at the rate of 100 mL an hour. Beckett catheter inserted. On 08/18/2000 patient seen in follow-up in the intensive care unit, she is currently awake and alert, in no acute distress, breathing comfortably, she is on 2 L of oxygen pulse ox is 97-98%, she is answering questions improperly, she denies any acute distress, she remains in atrial fibrillation with a rate of 117 BPM, she is currently on norepinephrine drip. 0.05 mics per kilo per minute, D5W with 3 A of bicarbonate at 100 ML per hour, amiodarone drip is at 0.5 mg/h. Patient is supposed to be restarted on heparin infusion as well after surgical clearance. Her VQ scan showed low probability of PE, patient was found to have left lower extremity DVT. Lung sounds are clear, diminished at the bases, no cough, no congestion, no complaints of chest pain, she remains on combination of antibiotics with Levaquin and Zosyn. Her urine and blood cultures have been negative. CT chest abdomen and pelvis showed mild atelectasis and scarring in the right lung base, no pleural effusion, no pericardial effusion no aneurysm, no hilar masses. There was no evidence of bowel obstruction. No mesenteric e gloria, no ascites or free air. 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 Echocardiogram has been reviewed showing preserved LV function with EF of 65-70%, mildly enlarged right ventricle, no aortic stenosis or regurgitation, mild tricuspid regurg, mild pulmonary hypertension with right- sided pressure of 37 mmHg. Patient is still on fairly high amount of vasopressors. Beckett catheter is in place, and patient is producing urine in the order of 30-40 mL per hour, her right-sided ileostomy is producing normal amount of greenish liquid stool. Colostomy is not bringing out any output. His labs have been reviewed, her white blood cell count is slightly improved and is currently at 21.5, hemoglobin is 7.7, sodium is 137, potassium is 4.8, chloride is 110, CO2 is 11, BUN 62, creatinine is 4.25. Renal profile is slightly improved compared to last couple of days. Nephrology services are following. Patient does have a recent history of "with 19 infection, her LDH from 08/17/2020 was 1002, and CRP it has not been checked, pro-calcitonin level is 1.5, and urinalysis showed evidence of acute urinary tract infection. On 08/19/2021 patient seen in follow-up in the intensive care unit, she is rest ing comfortably in bed, denies any acute distress, room air pulse ox is 94%, lung sounds are clear to auscultation, no cough, no complaints of chest pain, she is in sinus mechanism with a rate of 54 BPM. She is on 0.9 normal saline at a rate of 75 ML per hour, no norepinephrine drip, no other vasopressor support. Hemodynamically she has been stable. She received a unit of packed red blood cells on August 19, 2021, for a hemoglobin of 6.7. Today's hemoglobin is 7.9, white blood cell count is improving and is down to 14.3, sodium is 141, potassium 3.5, chloride is 108, BUN is 44, creatinine is 3.47. TSH and cortisol levels were within normal limits at 1.840 and 40 respectively. Today's chest x- ray has been reviewed showing increasing left basilar infiltrates correlating for atelectasis., There was cardiomegaly with mild prominent pulmonary vascular markings, possibility of early fluid overload. No acute events overnight, no specific complaints, no abdominal pain, ileostomy is producing liquid stool, mid abdominal incision is clean dry and intact. Patient remains on a combination of Levaquin and Zosyn for urinary tract infection, yesterday's urinalysis still showing persistent urinary tract infection. Urine culture revealed enterococcus species with susceptibility to Levaquin, and E. coli which was susceptible to Zosyn. Patient is noted to have peripheral edema, and the left leg has more swelling than the right leg. No anticoagulation in view of low hemoglobin. We'll start l Lovenox 30 mg daily, and await further input from cardiology on the recommendation for anticoagulation in view of paroxysmal atrial fibrillation. On 08/21/2021 patient is seen in follow-up in intensive care unit, she has been an overflow for selective care since yesterday, she is awake and alert, in no acute distress, generally weak, but she was able to get up in the chair today, currently resting in the recliner. Patient is on 3 L of oxygen, lung sounds reveal some bibasilar crackles, no rhonchi or wheezing, no cough, no complaints of chest pain, she continues on 0.9 normal saline at a rate of 75 ML per hour, however yesterday's chest x-ray findings were suggesting early pulmonary edema. Patient is now requiring supplemental oxygen. We may consider diuresis and cutting IV fluids to KVO. Patient got confused, and now there is a safety glass installer at the bedside, not agitated, patient was started on low-dose Eliquis yesterday 2.5 mg twice daily for evidence of left lower extremity DVT. Patient remains in atrial fibrillation with a controlled rate, discussed the case with cardiology, there has been no reported bleeding overnight, hemodynamically she is stable, will continue with current dose Eliquis, cardiology is in agreement. Today's hemoglobin is 8.9, white blood cell count is improving and is down to 11.3, sodium is 143, potassium is 3.6, chloride is 110, BUN is 39, creatinine is 3.27, patient is tolerating oral intake, no nausea vomiting or diarrhea, however her oral intake is still poor, IV fluids have been bumped down to 40 ML per hour. Reid on combination of Levaquin and Zosyn for enterococcus and resistant E. coli urinary tract infection. Afebrile Objective - Vital Signs Vital signs: Vital Signs Temp 98.4 F 08/21/21 04:00 Pulse 60 08/21/21 04:00 Resp 13 08/20/21 19:00 BP 108/79 08/21/21 04:00 Pulse Ox 92 L 08/21/21 04:00 Intake & Output 08/20/21 08/21/21 08/21/21 18:59 06:59 18:59 Intake Total 399.050 2672 Output Total 495 700 Balance 406.709 300 Weight 79.2 kg Intake: IV 850 1000 Piperacillin-Tazobactam 3 100 100 .375 gm In Sodium Chloride 0.9% 100 ml @ 25 mls/hr IVPB Q12HR [facility] Rx #:[id number] Sodium Chloride 0.9% 1, 750 900 000 ml @ 75 mls/hr IV . [id number] [facility] Rx#:[id number] Intake, IV Titration 51.709 Amount Norepinephrine 4 mg In 51.709 Sodium Chloride 0.9% 250 ml @ 0.05 MCG/KG/MIN 18. 578 mls/hr IV .[id number] [facility] Rx#:[id number] Output: Urine 295 700 Stool 200 Other: Voiding Method Indwelling Catheter Indwelling Catheter - Exam GENERAL EXAM: Alert, very pleasant, 80-year-old white female, room air with a pulse ox of 92-96% comfortable in no apparent distress. HEAD: Normocephalic/atraumatic. EYES: Normal reaction of pupils, equal size. Conjunctiva pink, sclera white. NOSE: Clear with pink turbinates. THROAT: No erythema or exudates. NECK: No masses, no JVD, no thyroid enlargement, no adenopathy. CHEST: No chest wall deformity. Symmetrical expansion. LUNGS: Equal air entry with mild basilar crackles CVS: Irregular rate and rhythm, normal S1 and S2, no gallops, no murmurs, no rubs ABDOMEN: Soft, nontender. No hepatosplenomegaly, normal bowel sounds, no guarding or rigidity. Right lower quadrant ileostomy is with small amount of green liquid output, and left lower quadrant colostomy with no output EXTREMITIES: No clubbing, mild edema involving the right lower extremity, and 2+ left lower extremity edema, no cyanosis, 2+ pulses and upper and lower extremities. MUSCULOSKELETAL: Muscle strength and tone normal. SPINE: No scoliosis or deformity SKIN: No rashes CENTRAL NERVOUS SYSTEM: Alert and oriented -3. No focal deficits, tone is normal in all 4 extremities. PSYCHIATRIC: Alert and oriented -3. Appropriate affect. Intact judgment and insight. - Labs CBC & Chem 7: 08/21/21 07:27 08/21/21 07:27 Labs: Abnormal Lab Results - Last 24 Hours (Table) 08/17/21 08/20/21 08/21/21 Range/Units 14:23 16:51 06:47 WBC (3.8-10.6) k/uL RBC (3.80-5.40) m/uL Hgb (11.4-16.0) gm/dL Hct (34.0-46.0) % MCV (80.0-100.0) fL RDW (11.5-15.5) % Neutrophils # (1.3-7.7) k/uL Chloride (98-107) mmol/L BUN (7-17) mg/dL Creatinine (0.52-1.04) mg/dL POC Glucose (mg/dL) 122 H 72 L (75-99) mg/dL Calcium (8.4-10.2) mg/dL Alkaline Phosphatase (38-126) U/L Total Protein (6.3-8.2) g/dL Albumin (3.5-5.0) g/dL Free [place] LC, Quant 23.00 H (0.33-1.94) mg/dL Free [place] LC, Quant 11.65 H (0.57-2.63) mg/dL 08/21/21 08/21/21 Range/Units 07:27 07:27 WBC 11.3 H (3.8-10.6) k/uL RBC 2.86 L (3.80-5.40) m/uL Hgb 8.9 L (11.4-16.0) gm/dL Hct 28.6 L (34.0-46.0) % MCV 100.1 H (80.0-100.0) fL RDW 17.0 H (11.5-15.5) % Neutrophils # 9.2 H (1.3-7.7) k/uL Chloride 110 H (98-107) mmol/L BUN 39 H (7-17) mg/dL Creatinine 3.27 H (0.52-1.04) mg/dL POC Glucose (mg/dL) (75-99) mg/dL Calcium 7.6 L (8.4-10.2) mg/dL Alkaline Phosphatase 151 H (38-126) U/L Total Protein 5.4 L (6.3-8.2) g/dL Albumin 2.2 L (3.5-5.0) g/dL Free [place] LC, Quant (0.33-1.94) mg/dL Free Lambda LC, Quant (0.57-2.63) mg/dL Microbiology - Last 24 Hours (Table) 08/17/21 01:25 Blood Culture - Preliminary Blood No Growth after 96 hours 08/16/21 01:41 Blood Culture - Preliminary Blood No Growth after 96 hours Assessment and Plan Plan: Assessment: #1. Altered mental status related to toxic metabolic encephalopathy. In part due to acute urinary tract infection, acute kidney injury and recent history of COVID-19 infection, improving #2. PETE on top of CTD stage III, renal function is improving #3. Anion gap metabolic acidosis/lactic acidosis, resolved #4. Acute left lower leg DVT, was on heparin infusion which was discontinued in regards to vaginal bleeding, currently hemodynamically stable, we will start low-dose Eliquis 2.5 milligrams twice daily #5. New onset A. fib with RVR, currently in sinus mechanism. #6. Acute leukocytosis, improving #7. Recent infection with COVID-19 without obvious COVID-19 associated pneumonia, patient is currently on oxygen with no signs of any respiratory distress #8. E. coli and enterococcus urinary tract infection, and the E. coli strain proved to be multidrug resistant with sensitivity to Zosyn, enterococcus with sensitivity to Levaquin #9. Uterus/pelvic mass with recent history of exploratory laparotomy, right colectomy and ileostomy with repair of umbilical hernia and mucus fistula in June 2021 #10. History of CHF with preserved LV function, moderate concentric LVH, EF of 65-70%, mild pulmonary hypertension with right-sided pressure 37 mmHg. #11. History of diabetes mellitus type 2 #12. History of hyperlipidemia #13. History of hypertension #14. Osteoarthritis #15. Chronic neuropathy #16. COPD #17. Acute on chronic anemia related to vaginal bleeding, and with the possibility of underlying OUTPATIENT CODING SPECIALIST malignancy, please refer to OUTPATIENT CODING SPECIALIST consultation and progress notes Plan: We'll obtain follow-up chest x-ray today Patient is requiring supplemental oxygen, there is some crackles in bilateral bases on physical exam We'll cutback IV fluids to 40 ML per hour We will consider a dose of IV Lasix depending on chest x-ray findings Hemodynamically patient stable, She is in sinus mechanism No active bleeding overnight Today's blood work has been noted, hemoglobin is up to 8.9 Patient was started on Eliquis 2.5 mg twice daily for left lower extremity DVT There has been no active bleeding Hemodynamically he has remained stable Continues on Levaquin and Zosyn No fevers overnight Awaiting a bed on selective care unit today I performed a history & physical examination of the patient and discussed their management with my nurse practitioner, Mayra Garcia. I reviewed the nurse practitioner's note and agree with the documented findings and plan of care. Lung sounds are positive for diminished breath sounds throughout the lung hong. The findings and the impression was discussed with the patient. I attest to the documentation by the nurse practitioner. Time with Patient: Greater than 30
--- NOTE | 2021-08-21 11:08 | P.PN ---
<Marisa Martinez - Last Filed: 08/21/21 11:02> Subjective Progress Note Date: 08/21/21 CHIEF COMPLAINT: GI bleed HISTORY OF PRESENT ILLNESS: Patient admitted to the hospital with mental status changes. She's currently in the ICU as med/surg overflow. Patient sitting up in bedside chair. She reports a small amount of abdominal pain in the lower abdomen. Eating only a small amount of her food. No nausea or vomiting reported. Stool through her ileostomy is brown in color. No further evidence of bleeding. Patient was placed on Eliquis today for the DVT and A. fib history. Afebrile. WBC down from 14.3-11.3 Hgb7.9-8.9 PHYSICAL EXAM: VITAL SIGNS: Reviewed. GENERAL: Well-developed in no acute distress. HEENT: No sclera icterus. Extraocular movements grossly intact. Moist buccal mucosa. Head is atraumatic, normocephalic. ABDOMEN: Soft. Nondistended. Nontender. Ileostomy output is brown in color NEUROLOGIC: Awake. Confused. ASSESSMENT: 1. Acute GI bleed. Stool for occult blood positive. Episode of coffee-ground emesis on admission. Patient has no further evidence of GI bleeding 2. Acute on chronic Anemia with acute blood loss anemia 3. Enlarged uterus and pelvic mass. Possible underlying PLANT HR MANAGER malignancy. PLANT HR MANAGER following and planning further workup outpatient. 4. Altered mental status 5. DVT left leg 6. A. fib 7. UTI PLAN: -Continue supportive care -Continue to monitor closely for signs or symptoms of GI bleeding -Continue to monitor hemoglobin Physician Zoning Engineer note has been reviewed by physician. Signing provider agrees with the documented findings, assessment, and plan of care. Objective - Vital Signs Vital signs: Vital Signs Temp 98.4 F 08/21/21 04:00 Pulse 60 08/21/21 04:00 Resp 13 08/20/21 19:00 BP 108/79 08/21/21 04:00 Pulse Ox 92 L 08/21/21 04:00 Intake & Output 08/20/21 08/21/21 08/21/21 18:59 06:59 18:59 Intake Total 240.412 3000 Output Total 495 700 Balance 406.709 300 Weight 79.2 kg Intake: IV 850 1000 Piperacillin-Tazobactam 3 100 100 .375 gm In Sodium Chloride 0.9% 100 ml @ 25 mls/hr IVPB Q12HR [facility] Rx #:[id number] Sodium Chloride 0.9% 1, 750 900 000 ml @ 75 mls/hr IV . [id number] [facility] Rx#:[id number] Intake, IV Titration 51.709 Amount Norepinephrine 4 mg In 51.709 Sodium Chloride 0.9% 250 ml @ 0.05 MCG/KG/MIN 18. 578 mls/hr IV .[id number] [facility] Rx#:[id number] Output: Urine 295 700 Stool 200 Other: Voiding Method Indwelling Catheter Indwelling Catheter - Labs CBC & Chem 7: 08/21/21 07:27 08/21/21 07:27 Labs: Abnormal Lab Results - Last 24 Hours (Table) 08/17/21 08/20/21 08/21/21 Range/Units 14:23 16:51 06:47 WBC (3.8-10.6) k/uL RBC (3.80-5.40) m/uL Hgb (11.4-16.0) gm/dL Hct (34.0-46.0) % MCV (80.0-100.0) fL RDW (11.5-15.5) % Neutrophils # (1.3-7.7) k/uL Chloride (98-107) mmol/L BUN (7-17) mg/dL Creatinine (0.52-1.04) mg/dL POC Glucose (mg/dL) 122 H 72 L (75-99) mg/dL Calcium (8.4-10.2) mg/dL Alkaline Phosphatase (38-126) U/L Total Protein (6.3-8.2) g/dL Albumin (3.5-5.0) g/dL Free [place] LC, Quant 23.00 H (0.33-1.94) mg/dL 08/21/21 08/21/21 Range/Units 07:27 07:27 WBC 11.3 H (3.8-10.6) k/uL RBC 2.86 L (3.80-5.40) m/uL Hgb 8.9 L (11.4-16.0) gm/dL Hct 28.6 L (34.0-46.0) % MCV 100.1 H (80.0-100.0) fL RDW 17.0 H (11.5-15.5) % Neutrophils # 9.2 H (1.3-7.7) k/uL Chloride 110 H (98-107) mmol/L BUN 39 H (7-17) mg/dL Creatinine 3.27 H (0.52-1.04) mg/dL POC Glucose (mg/dL) (75-99) mg/dL Calcium 7.6 L (8.4-10.2) mg/dL Alkaline Phosphatase 151 H (38-126) U/L Total Protein 5.4 L (6.3-8.2) g/dL Albumin 2.2 L (3.5-5.0) g/dL Free [place] LC, Quant (0.33-1.94) mg/dL Microbiology - Last 24 Hours (Table) 08/17/21 01:25 Blood Culture - Preliminary Blood No Growth after 96 hours 08/16/21 01:41 Blood Culture - Preliminary Blood No Growth after 96 hours <Arash Bailey - Last Filed: 08/21/21 13:03> Subjective I have personally seen and examined the patient, reviewed the SPRINKLER WORKER /PAs history, exam and MDM and agree with the assessment and plan as written. Based on total visit time, I have performed more than 50% of the visit. As above. Patient doing well. Tolerating good volume of diet. No bleeding. Remains confused. Still on the ICU as a 3 S. overflow. We'll recheck again to monson. If no further surgical issues we'll sign off at that point. Objective - Vital Signs Vital signs: Vital Signs Temp 98.4 F 08/21/21 04:00 Pulse 60 08/21/21 04:00 Resp 13 08/20/21 19:00 BP 108/79 08/21/21 04:00 Pulse Ox 92 L 08/21/21 04:00 Intake & Output 08/20/21 08/21/21 08/21/21 18:59 06:59 18:59 Intake Total 632.656 1319 Output Total 495 700 Balance 406.709 300 Weight 79.2 kg 79.2 kg Intake: IV 850 1000 Piperacillin-Tazobactam 3 100 100 .375 gm In Sodium Chloride 0.9% 100 ml @ 25 mls/hr IVPB Q12HR [facility] Rx #:[id number] Sodium Chloride 0.9% 1, 750 900 000 ml @ 75 mls/hr IV . [id number] [facility] Rx#:[id number] Intake, IV Titration 51.709 Amount Norepinephrine 4 mg In 51.709 Sodium Chloride 0.9% 250 ml @ 0.05 MCG/KG/MIN 18. 578 mls/hr IV .[id number] [facility] Rx#:[id number] Output: Urine 295 700 Stool 200 Other: Voiding Method Indwelling Catheter Indwelling Catheter - Labs CBC & Chem 7: 08/21/21 07:27 08/21/21 07:27 Labs: Abnormal Lab Results - Last 24 Hours (Table) 08/20/21 08/21/21 08/21/21 Range/Units 16:51 06:47 07:27 WBC (3.8-10.6) k/uL RBC (3.80-5.40) m/uL Hgb (11.4-16.0) gm/dL Hct (34.0-46.0) % MCV (80.0-100.0) fL RDW (11.5-15.5) % Neutrophils # (1.3-7.7) k/uL Chloride 110 H (98-107) mmol/L BUN 39 H (7-17) mg/dL Creatinine 3.27 H (0.52-1.04) mg/dL POC Glucose (mg/dL) 122 H 72 L (75-99) mg/dL Calcium 7.6 L (8.4-10.2) mg/dL Alkaline Phosphatase 151 H (38-126) U/L Total Protein 5.4 L (6.3-8.2) g/dL Albumin 2.2 L (3.5-5.0) g/dL 08/21/21 08/21/21 Range/Units 07:27 11:41 WBC 11.3 H (3.8-10.6) k/uL RBC 2.86 L (3.80-5.40) m/uL Hgb 8.9 L (11.4-16.0) gm/dL Hct 28.6 L (34.0-46.0) % MCV 100.1 H (80.0-100.0) fL RDW 17.0 H (11.5-15.5) % Neutrophils # 9.2 H (1.3-7.7) k/uL Chloride (98-107) mmol/L BUN (7-17) mg/dL Creatinine (0.52-1.04) mg/dL POC Glucose (mg/dL) 121 H (75-99) mg/dL Calcium (8.4-10.2) mg/dL Alkaline Phosphatase (38-126) U/L Total Protein (6.3-8.2) g/dL Albumin (3.5-5.0) g/dL Microbiology - Last 24 Hours (Table) 08/17/21 01:25 Blood Culture - Preliminary Blood No Growth after 96 hours 08/16/21 01:41 Blood Culture - Preliminary Blood No Growth after 96 hours
[2021-08-21 11:42] LABS: Glucose,Whole Blood 121 mg/dL (75-99)
[2021-08-21] MEDS ORDERED: DARBEPOETIN ALFA 25 MCG/0.42 ML SYRINGE SQ SCH (12:00)
--- NOTE | 2021-08-21 12:18 | PN ---
PROGRESS NOTE Mrs Yuen is in atrial fib. Rate is much better controlled. Her bleeding seems to have stopped. Hemoglobin is more stable. She was started on Eliquis 2.5 mg b.i.d. yesterday, which I agree with. Hemodynamically stable. She is not on any pressors. Vital signs stable. S1-S2 heard normally with irregular rhythm. Short systolic murmur. Lungs reveal improved air entry. Abdomen and lower extremity exam unchanged. Plan is to continue current medications and her atrial fibrillation rate is controlled and we will continue to see her as needed. MMODL / IJN: [id number] /
--- NOTE | 2021-08-21 12:38 | P.PN ---
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 Quiñonez, and recent admission from 07/29/21-08/04/21 for acute respiratory failure with hypoxia secondary to Covid 19 pneumonitis. Patient presented to the emergency department by EMS with a chief complaint of alteration in mental status, nausea and coffee ground emesis. Patient underwent full evaluation. She was found to be tachycardic 120s to 140s, to 20-24 breaths per minute, hypoxic requiring oxygen supplementation with placement on nonrebreather, and found to have a low-grade temp of 99.9F. EKG revealed atrial fibrillation with a rapid ventricular rate of 148 bpm. Labs revealed significant leukocytosis with WBC count 28.4, anemic with hemoglobin of 9.7, hyperkalemic with potassium 5.4, acidotic with chloride 107, CO2 8, anion gap 22, and plasma lactic acid of 5.0 acute kidney injury with BUN 60, creatinine 4.84, and GFR of 8 with baseline creatinine of 1.8-2.0. Troponins were elevated at 0.062 and 0.054. Pro-calcitonin also elevated at 1.50. Urinalysis positive for infection. Chest x-ray showing mild pulmonary fibrotic changes with no evidence of heart failure or acute cardiopulmonary process. CT chest, abdomen, and pelvis without contrast revealed no evidence of bowel obstruction with no free air however there was a reported new complex 6 x 4 cm cyst on right ovary which is reported being new compared to previous exam. Left lower extremity Dopplers were positive for DVT extending from the left popliteal vein to the femoral vein. Patient was started on heparin infusion for treatment of acute DVT, Cardizem infusion for atrial fibrillation with RVR, bicarb infusion for severe metabolic acidosis with a critical bicarb of 8. Given sepsis bolus of 3 L normal saline and started on IV antibiotics Zosyn and Levaquin. Consultations were placed general surgery for concerns of GI bleed, cardiology for elevated troponin and A. fib RVR, nephrology for acute renal failure and severe metabolic acidosis requiring bicarbonate infusion, and hematology secondary to development of DVT while on oral anticoagulant. Consult was also placed to doors prefitter secondary to critically ill patient, at this time patient awaiting bed placement on stepdown unit. Called to update patient's son, Yanick, I spoke with him and updated him on mother's critical condition. 08/18: Patient remains in the intensive care unit. She's been on amiodarone and heparin for A. fib with RVR, she is currently on norepinephrine and also receiving magnesium replacement. Patient has black stool in her ostomy and heparin will be discontinued. Abdomen is firm. Consult is in place with general surgery and she has been cleared to start diet. Patient is seen and followed by multiple consultants including oncology, cardiology, nephrology and doors prefitter. Echocardiogram reveals EF of 65-70%, aneurysmal intra-atrial septum, mild tricuspid regurgitation, no aortic stenosis or regurgitation. Mild mitral ossification. Mild pulmonary hypertension, RVSP 37.19.. Pulmonary perfusion study showed small perfusion defects correspond to low probability for pulmonary embolism. 08/19: She remains in the intensive care unit and on norepinephrine. She has been afebrile, heart rate 68, blood pressure 106/41 and pulse ox 93% on room air. Hemoglobin this morning is 6.7 and 1 unit of packed RBCs has been ordered. Patient has liquid dark brown stool in her ostomy bag. Other blood work reveals BUN of 49 creatinine 3.56 which is improving. Blood sugars are running between 67 and 150. We'll discontinue scheduled NovoLog as patient is now off drips containing D5W. Bicarbonate drip discontinued. Patient remains confused. Urine culture is showing group D enterococcus and gram-negative bacilli. Blood culture no growth at 48 hours 2 specimens. 08/20: Patient is seen today in the emergency center. She is off vasopressors and has been downgraded to the cardiac stepdown unit. Patient is more oriented today. She denies having any shortness of breath or cough. Output from ostomy is brown liquid, no blood noted. Patient denies abdominal pain. She is still not eating very much but no nausea or vomiting. Patient received 1 unit of packed RBCs yesterday and hemoglobin is 7.9. WBC 14.3, platelet count 177. BUN 44 and creatinine 3.47. Blood sugars are running between 82 and 150s. Urine culture finalized with Enterococcus faecium and E. coli. Patient has been resumed on eliquis. 08/21: Patient remains in the intensive care unit waiting for a bed on the cardiac stepdown unit. She's been afebrile, heart rate 60, blood pressure 108/79, pulse ox 92% on room air. Repeat blood work reveals WBC 11.3, hemoglobin 8.9, platelet count 188. Sodium 143, potassium 3.6, chloride 110, CO2 23, BUN 39 creatinine 3.27. Alkaline phosphatase 151. Blood sugars are running between 70 to and 89. Patient is seen today sitting up in recliner in the intensive care unit. She has been started on 3 L nasal cannula. We will start Lasix 20 mg IV daily for 2 days. Repeat chest x-ray reveals mild cardiomegaly and chronic. She will changes with left basilar acute infiltrate and/or atelectasis redemonstrated. No significant change. New small to tiny right pleural effusion. Very decreased IV fluids to 40 mL per hour Nephrology has added Aranesp, potassium replaced. Review Of Systems: Constitutional: No documented fever, no chills, no night sweats. No weight change. Noted weakness, fatigue. No daytime sleepiness. EENT: No headache. No blurred vision or double vision, no loss of vision. No loss of Hearing, no ringing in the ears, no dizziness. No nasal drainage or congestion. No epistaxis. No sore throat. Lungs: No shortness of breath, cough, no sputum production. No wheezing. Cardiovascular: No chest pain, no lower extremity edema. No palpitations. No paroxysmal nocturnal dyspnea. No orthopnea. No lightheadedness or dizziness. No syncopal episodes. Abdominal: No abdominal pain. No nausea, vomiting. No diarrhea. No constipati on. No bloody or tarry stools.. Noted loss of appetite. Genitourinary: No dysuria, increased frequency, urgency. No urinary retention. Musculoskeletal: No myalgias. No muscle weakness, no gait dysfunction, no frequent falls. No back pain. No neck pain. Integumentary: No wounds, no lesions. No rash or pruritus. No unusual bruising. No change in hair or nails. Neurologic: No aphasia. No facial droop. Noted change in mentation. No head injury. No headache. No paralysis. No paresthesia. Psychiatric: No depression. No anxiety. No mood swings. Endocrine: No abnormal blood sugars. No weight change. No excessive sweating or thirst. No cold intolerance. Physical exam: Gen: This is an elderly frail appearing 80-year-old female, resting in recliner in no acute distress. Patient is seen today in the intensive care unit. HEENT: Head is atraumatic, normocephalic. Pupils equal, round. Sclerae is anicteric. Patient is edentulous. NECK: Supple. No JVD. No lymphadenopathy. No thyromegaly. LUNGS: Decreased breath some bilateral rhonchi and mild expiratory wheezes. HEART: Irregular rate and rhythm. Monitor atrial fibrillation. ABDOMEN: Abdomen firm, no rebound or rigidity. Ostomy on the right side with brown liquid stool. Beckett catheter draining nicolette urine EXTREMITIES: Noted pedal edema. No calf tenderness. NEUROLOGICAL: Patient is awake, alert and oriented to person. Assessment and Plan of Care: Metabolic encephalopathy, Likely multifactorial resulting from current critical state with severe metabolic acidosis, severe sepsis, PETE, and following conditions listed below. Severe sepsis with septic shock requiring vasopressors of unclear etiology possibly urinary tract infection versus other source such as abdominal Continue care in the intensive care unit, doors prefitter consult ap preciated.continue Levaquin, Zosyn, vasopressor support has been discontinued Acute GI bleed with reports of coffee-ground emesis Acute on chronic anemia slightly below baseline hemoglobin of 9, acute blood loss anemia Continue Protonix 40 mg IV twice daily, general surgery consult, diet advanced to regular. Continue to monitor hemoglobin. Heparin drip discontinued. Pa tient status post transfusion 1 unit of packed RBCs. Acute DVT of left lower extremity Acute hypoxic respiratory failure, recent admission for Covid 19 pneumonitis from 07/29/21 through 08/04/21 Pulmonary embolus ruled out. Eliquis 2.5 mg twice daily. Acute kidney injury on chronic kidney disease stage III Severe Metabolic acidosis Lactic acidosis Enterococcus faecium and E. coli UTI -Consult nephrology appreciated -Insert Beckett catheter for close monitoring of I's and O's. -Continue Zosyn and Levaquin -Caution with nephrotoxic medications. Atrial fibrillation with RVR, paroxysmal atrial fibrillation Elevated troponin, flat, likely secondary to RVR Chronic diastolic heart failure with previously known EF of 55-60% Off Cardizem drip, cardiology consult appreciated, continue Lopressor 25 mg twice daily, eliquis 2.5 mg twice daily. Diabetes mellitus type 2 insulin requiring, uncontrolled with hyperglycemia. Continue NovoLog scale, add NovoLog 5 units with meals Incidental finding on imaging -CT reported new complex 6 x 4 cm cyst on right ovary which is reported being new compared to previous exam -Previous surgical report from 06/20/21 stated findings of a 3.5 cm lesion on right ovary concerning for potential ovarian cancer Oncology consult appreciated Hypertension. Patient is off anti-hypertensive medications. Hyperlipidemia CODE STATUS: Full code DVT prophylaxis: SCDs and FAHEEM hose DISCHARGE PLAN Subacute rehab at [facility] next week Impression and plan of care have been directed as dictated by the signing phys ara. Thais Scott nurse practitioner acting as scribe for signing physician. Objective - Vital Signs Vital signs: Vital Signs Temp 98.4 F 08/21/21 04:00 Pulse 60 08/21/21 04:00 Resp 13 08/20/21 19:00 BP 108/79 08/21/21 04:00 Pulse Ox 92 L 08/21/21 04:00 Intake & Output 08/20/21 08/21/21 08/21/21 18:59 06:59 18:59 Intake Total 563.988 4242 Output Total 495 700 Balance 406.709 300 Weight 79.2 kg Intake: IV 850 1000 Piperacillin-Tazobactam 3 100 100 .375 gm In Sodium Chloride 0.9% 100 ml @ 25 mls/hr IVPB Q12HR STEPHANIE Rx #:[id number] Sodium Chloride 0.9% 1, 750 900 000 ml @ 75 mls/hr IV . [id number] STEPHANIE Rx#:[id number] Intake, IV Titration 51.709 Amount Norepinephrine 4 mg In 51.709 Sodium Chloride 0.9% 250 ml @ 0.05 MCG/KG/MIN 18. 578 mls/hr IV .[id number] STEPHANIE Rx#:[id number] Output: Urine 295 700 Stool 200 Other: Voiding Method Indwelling Catheter Indwelling Catheter - Labs CBC & Chem 7: 08/21/21 07:27 08/21/21 07:27 Labs: Abnormal Lab Results - Last 24 Hours (Table) 08/17/21 08/20/21 08/21/21 Range/Units 14:23 16:51 06:47 WBC (3.8-10.6) k/uL RBC (3.80-5.40) m/uL Hgb (11.4-16.0) gm/dL Hct (34.0-46.0) % MCV (80.0-100.0) fL RDW (11.5-15.5) % Neutrophils # (1.3-7.7) k/uL Chloride (98-107) mmol/L BUN (7-17) mg/dL Creatinine (0.52-1.04) mg/dL POC Glucose (mg/dL) 122 H 72 L (75-99) mg/dL Calcium (8.4-10.2) mg/dL Alkaline Phosphatase (38-126) U/L Total Protein (6.3-8.2) g/dL Albumin (3.5-5.0) g/dL Free [place] LC, Quant 23.00 H (0.33-1.94) mg/dL Free Lambda LC, Quant 11.65 H (0.57-2.63) mg/dL 08/21/21 08/21/21 Range/Units 07:27 07:27 WBC 11.3 H (3.8-10.6) k/uL RBC 2.86 L (3.80-5.40) m/uL Hgb 8.9 L (11.4-16.0) gm/dL Hct 28.6 L (34.0-46.0) % MCV 100.1 H (80.0-100.0) fL RDW 17.0 H (11.5-15.5) % Neutrophils # 9.2 H (1.3-7.7) k/uL Chloride 110 H (98-107) mmol/L BUN 39 H (7-17) mg/dL Creatinine 3.27 H (0.52-1.04) mg/dL POC Glucose (mg/dL) (75-99) mg/dL Calcium 7.6 L (8.4-10.2) mg/dL Alkaline Phosphatase 151 H (38-126) U/L Total Protein 5.4 L (6.3-8.2) g/dL Albumin 2.2 L (3.5-5.0) g/dL Free [place] LC, Quant (0.33-1.94) mg/dL Free Lambda LC, Quant (0.57-2.63) mg/dL Microbiology - Last 24 Hours (Table) 08/17/21 01:25 Blood Culture - Preliminary Blood No Growth after 96 hours 08/16/21 01:41 Blood Culture - Preliminary Blood No Growth after 96 hours
[2021-08-21] MEDS: ACETAMINOPHEN TAB 325 MG TAB PO PRN (14:18)
[2021-08-21] MEDS: FUROSEMIDE 10 MG/ML 2 ML VIAL IV SCH (14:19)
[2021-08-21 16:35] LABS: Glucose,Whole Blood 80 mg/dL (75-99)
[2021-08-21 20:06] LABS: Glucose,Whole Blood 103 mg/dL (75-99)
[2021-08-21] MEDS: PRAVASTATIN SODIUM 40 MG TAB PO SCH (21:54)
--- NOTE | 2021-08-21 23:51 | PN ---
PROGRESS NOTE DATE OF SERVICE: 08/21/2021 REASON FOR FOLLOWUP: Urinary tract infection. INTERVAL HISTORY: The patient is afebrile. The patient is breathing comfortably. The patient is hemodynamically stable and has been transferred out of the ICU. Denies having any chest pain or cough. ( ) No vomiting. No abdominal pain, no diarrhea. PHYSICAL EXAMINATION: Blood pressure 109/67, pulse of 72, temperature is 97.7. She is 92% on 4 L nasal cannula. General description is an elderly female lying in bed in no distress. Respiratory system: Unlabored breathing, decreased breath sounds, no wheeze. Heart S1, S2. Regular rate and rhythm. Abdomen soft. No guarding or rigidity. Extremities: No edema of the feet. LABS: White count 11.3, creatinine is 3.27. DIAGNOSTIC IMPRESSION AND PLAN: Patient with leukocytosis which is multifactorial in this patient who has a urinary tract infection, urine positive for Enterococcus and E coli, covered with Zosyn to continue for now. Will monitor clinical course closely. Continue supportive care. MMODL / IJN: [id number] /
[2021-08-22 06:07] LABS: Glucose,Whole Blood 76 mg/dL (75-99)
[2021-08-22] MEDS: INSULIN ASPART (NovoLOG) 100 UNIT/ML VIAL SQ SCH ×4 (06:21→21:20)
[2021-08-22 06:46] LABS: Anisocytosis Slight; Basophils % (A) 0 %; Eosinophils # (A) 0.3 k/uL (0-0.7); Eosinophils % (A) 3 %; HCT 29.9 % (34.0-46.0); HGB 9.1 gm/dL (11.4-16.0); Hypochromasia Marked; Lymphocytes # (A) 1.4 k/uL (1.0-4.8); Lymphocytes % (A) 12 %; MCH 30.5 pg (25.0-35.0); MCHC 30.3 g/dL (31.0-37.0); MCV 100.7 fL (80.0-100.0); Macrocytosis Slight; Mean Platelet Volume 9.6; Monocytes # (A) 0.9 k/uL (0-1.0); Monocytes % (A) 8 %; Neutrophils # (A) 8.1 k/uL (1.3-7.7); Neutrophils % (A) 74 %; Platelet Count 170 k/uL (150-450); Poikilocytosis Slight; RBC 2.97 m/uL (3.80-5.40); RDW 16.3 % (11.5-15.5); WBC 10.9 k/uL (3.8-10.6)
[2021-08-22 07:56] LABS: Calcium 7.7 mg/dL (8.4-10.2); Magnesium 1.6 mg/dL (1.6-2.3); Potassium 3.8 mmol/L (3.5-5.1)
--- NOTE | 2021-08-22 08:11 | XR ---
EXAMINATION TYPE: XR chest 1V portable DATE OF EXAM: 08/22/2021 Comparison: 08/21/2021 Clinical History: 80 year-old female shortness of breath, dyspnea Findings: Right-sided subclavian CVC tip is malpositioned heading back up probably into the upper SVC. Patient is rotated towards the left altering the normal cardiac and mediastinal contours. Continued small gunjan ateral effusions. High density nodule right base suggesting a calcified granuloma from prior granulom atous disease. Mild interstitial prominence and mild patchy retrocardiac opacity. Impression: 1. Right subclavian CVC tip malpositioned. It curls back up and is pointed superiorly, tip probably i n the upper SVC. 2. Continued small effusions with adjacent atelectasis and or consolidation. Evidence of prior granul omatous disease.
--- NOTE | 2021-08-22 09:15 | P.CONS ---
History of Present Illness - Reason for Consult Consult date: 08/20/21 UTI Requesting physician: Mayra Garcia - Chief Complaint mental status changes x few days - History of Present Illness History of present illness : Patient is 80-year female presenting to the ER on August 17, 2021 for evaluation of mental status changes vomiting and progressive decline in overall health over the past week patient on presentation to the hospital was afebrile and no fever has been recorded during this admission patient did have a white count of 28,000 on admission and did have elevated BUN and creatinine she did have a positive UA akers PCR was negative patient did have a CT of chest abdominal pelvis that was done admission colostomy ileostomy noted no evidence of bowel obstruction no free air and there was atelectasis scarring of the right lung base and some effusion patient has been treated with p.o. antibiotics, Zosyn and Levaquin patient subsequently did develop A. fib with RVR with the patient started on Cardizem drip subsequently did have drop in blood pressure for which the patient be transferred to the ICU patient urine culture subsequently been finalized with Enterococcus faecium and E. coli that has prompted his infectious disease consultation patient on my evaluation this afternoon is afebrile, the patient denies having any chest pain shortness of breath or cough she be complaining of some abdominal pain however is not quantified any further no nausea no vomiting no diarrhea is noted by nursing staff oral dexamethasone poor Review of system: CONSTITUTIONAL: Positive for weakness denies fever. EYES: No complaint. ENT: No complaint. RESPIRATORY: No complaint. CARDIOVASCULAR: No complaint. GENITOURINARY: As per history of present illness. GASTROINTESTINAL: As per history of present illness. MUSCULOSKELETAL: No complaint. INTEGUMENTARY: No complaint. PSYCHOLOGIC: No complaint. ENDOCRINE: No complaint. NEUROLOGIC: No complaint. Past medical history : Reviewed, documented below Past surgical history : Reviewed, documented below Social history: Reviewed, documented below Medications: Reviewed, as documented below EXAMINATION: Vital sigans= Reviewed and documented below GENERAL DESCRIPTION: Elderly female lying in bed, no distress. No tachypnea or accessory muscle of respiration use. HEENT: Shows Pallor , no scleral icterus. Oral mucous membrane is dry. NECK: Trachea central, no thyromegaly. LUNGS: Unlabored breathing. Decreased breath sound at the base. No wheeze or crackle. HEART: S1, S2, regular rate and rhythm. ABDOMEN: Soft, no tenderness , guarding or rigidity EXTREMITIES: No edema of feet. SKIN: No rash, no masses palpable. NEUROLOGICAL: The patient is awake, alert, oriented x2, mood and affect normal. LABS AND RADIOLOGY: Reviewed results see below Assessment : Patient presented to hospital with mental status changes weakness respiratory have significant elevated white count on admission also have a positive UA with the likely culprit of symptomatic urinary tract infection urine culture showing Enterococcus patient noticed penicillin sensitive and E. coli, as currently no other obvious focus of infection CT of the chest abdominal pelvis failed to reveal any pneumonia or intra-abdominal abscess, colitis Plan: 1-patient to continue with the Zosyn which should cover him for pathogen 2-discontinue Levaquin 3-gentle IV fluid We will follow on clinical condition and cultures to further adjust medication if needed Thank you for this consultation we will follow the patient along with you Past Medical History Past Medical History: Heart Failure, Diabetes Mellitus, Hyperlipidemia, Hypertension, Osteoarthritis (OA), Renal Disease Additional Past Medical History / Comment(s): INSULIN- DIABETIC TYPE 2 , ACUTE KIDNEY FAILURE ,ILEOSTOMY,MUCOUS FISTULA, History of Any Multi-Drug Resistant Organisms: MRSA Year Discovered:: 11/18/18 MDRO Source:: URINE MRSA Past Surgical History: Section, Cholecystectomy Additional Past Surgical History / Comment(s): Bilateral cataract removals/lens implants, wrist surgery, ILEOSTOMY - JUN 2021 Past Anesthesia/Blood Transfusion Reactions: No Reported Reaction Additional Past Anesthesia/Blood Transfusion Reaction / Comm: Pt recieved blood in past without reaction (after childbirth) Past Psychological History: Anxiety, Depression Smoking Status: Former smoker Past Alcohol Use History: None Reported Past Drug Use History: None Reported - Past Family History Father Additional Family Medical History / Comment(s): Father from an industrial exposure at the age of 42 yrs. Mother Family Medical History: No Reported History Additional Family Medical History / Comment(s): Mother lived to be 95 yrs old. Medications and Allergies Home Medications Medication Instructions Recorded Confirmed Type FLUoxetine HCL [PROzac] 40 mg PO DAILY 10/18/18 08/16/21 History Metoprolol Tartrate [Lopressor] 50 mg PO BID 10/18/18 08/16/21 History Acetaminophen [Tylenol Extra 1,000 mg PO BID PRN 06/20/21 08/16/21 History Strength] Calcium Acetate [PhosLo] 667 mg PO TID-W/MEALS 06/20/21 08/16/21 History Pravastatin Sodium [Pravachol] 40 mg PO HS 06/20/21 08/16/21 History Apixaban [Eliquis] 2.5 mg PO BID 30 Days #60 tab 06/24/21 08/16/21 Rx Oxybutynin Chloride [Ditropan] 5 mg PO BID #0 06/30/21 08/16/21 Rx Insulin Lispro Protamin/Lispro See Protocol SQ AC-TID 07/29/21 08/16/21 History [humaLOG Mix 75-25 Kwikpen] Ascorbic Acid [Vitamin C] 1,000 mg PO DAILY tab 08/01/21 08/16/21 Rx Zinc Sulfate [Orazinc] 220 mg PO DAILY cap 08/01/21 08/16/21 Rx Magnesium Oxide [Mag-Ox] 400 mg PO DAILY tab 08/04/21 08/16/21 Rx valACYclovir HCL [Valtrex] 1,000 mg PO DAILY #7 tablet 08/04/21 08/16/21 Rx INSULIN ASPART (NovoLOG) [NovoLOG See Protocol SQ ACHS 08/16/21 08/16/21 History (formulary)] Allergies Allergy/AdvReac Type Severity Reaction Status Date / Time codeine AdvReac Nausea & Verified 08/16/21 23:57 Vomiting Physical Exam Vitals: Vital Signs Temp Pulse Resp BP Pulse Ox 08/20/21 15:00 55 L 11 L 94 L 08/20/21 14:30 56 L 14 109/59 95 08/20/21 14:00 67 15 90 L 08/20/21 13:30 55 L 12 91 L 08/20/21 13:00 74 12 94 L 08/20/21 12:30 75 14 118/52 95 08/20/21 12:00 98.0 F 64 22 119/44 96 08/20/21 11:30 73 15 08/20/21 11:00 62 12 104/45 93 L 08/20/21 10:30 55 L 7 L 08/20/21 10:00 73 17 91 L 08/20/21 09:30 53 L 12 100/41 88 L 08/20/21 09:00 61 11 L 08/20/21 08:30 46 L 20 08/20/21 08:00 98 F 57 L 12 99/46 93 L 08/20/21 07:30 67 13 104/55 95 08/20/21 07:00 58 L 20 95/44 93 L 08/20/21 06:30 48 L 21 92/43 93 L 08/20/21 06:00 56 L 14 102/49 89 L 08/20/21 05:30 53 L 8 L 103/39 93 L 08/20/21 05:00 62 16 101/44 94 L 08/20/21 04:30 60 20 102/38 92 L 08/20/21 04:00 98.0 F 60 19 94/47 94 L 08/20/21 03:30 55 L 11 L 109/88 93 L 08/20/21 03:00 61 19 103/38 96 08/20/21 02:30 64 14 109/48 96 08/20/21 02:00 64 11 L 99/41 90 L 08/20/21 01:30 52 L 12 95/65 93 L 08/20/21 01:00 51 L 15 100/42 91 L 08/20/21 00:30 57 L 12 77/52 92 L 08/20/21 00:00 98.0 F 53 L 15 102/44 91 L 08/19/21 23:30 54 L 23 95/62 94 L 08/19/21 23:00 55 L 14 92/45 94 L 08/19/21 22:30 57 L 14 83/41 93 L 08/19/21 22:00 60 20 75/37 95 08/19/21 21:30 62 14 96/51 95 08/19/21 21:00 73 10 L 93/70 94 L 08/19/21 20:30 15 73/28 93 L 08/19/21 20:00 96.7 F L 72 11 L 81/46 93 L 08/19/21 19:30 55 L 18 94/53 08/19/21 19:00 71 12 77/55 08/19/21 18:30 14 106/69 08/19/21 18:00 53 L 17 100/37 08/19/21 17:30 66 20 104/36 08/19/21 17:00 75 14 90/48 08/19/21 16:40 98.6 F 72 12 90/62 08/19/21 16:30 70 14 101/41 Intake and Output 08/20/21 08/20/21 08/20/21 06:59 14:59 22:59 Intake Total 768.345 751.709 Output Total 180 395 Balance 588.345 356.709 Intake: IV 700 700 Piperacillin-Tazobactam 3 100 100 .375 gm In Sodium Chloride 0.9% 100 ml @ 25 mls/hr IVPB Q12HR [facility] Rx #:[id number] Sodium Chloride 0.9% 1, 600 600 000 ml @ 75 mls/hr IV . [id number] [facility] Rx#:[id number] Intake, IV Titration 68.345 51.709 Amount Norepinephrine 4 mg In 68.345 51.709 Sodium Chloride 0.9% 250 ml @ 0.05 MCG/KG/MIN 18. 578 mls/hr IV .[id number] [facility] Rx#:[id number] Output: Urine 180 195 Stool 200 Other: Voiding Method Indwelling Catheter Indwelling Catheter Results CBC & Chem 7: 08/22/21 05:46 08/22/21 05:46 Labs: Abnormal Lab Results - Last 24 Hours (Table) 08/17/21 08/17/21 08/19/21 Range/Units 14:23 14:27 09:43 WBC (3.8-10.6) k/uL RBC (3.80-5.40) m/uL Hgb (11.4-16.0) gm/dL Hct (34.0-46.0) % RDW (11.5-15.5) % Neutrophils # (1.3-7.7) k/uL Chloride (98-107) mmol/L BUN (7-17) mg/dL Creatinine (0.52-1.04) mg/dL POC Glucose (mg/dL) (75-99) mg/dL Calcium (8.4-10.2) mg/dL Alkaline Phosphatase (38-126) U/L Total Protein (6.3-8.2) g/dL Albumin (3.5-5.0) g/dL Methylmalonic Acid 0.61 H (<0.40) umol/L Free [place] LC, Quant 23.00 H (0.33-1.94) mg/dL Free [place] LC, Quant 11.65 H (0.57-2.63) mg/dL Crossmatch See Detail 08/19/21 08/20/21 08/20/21 Range/Units 17:45 05:05 05:05 WBC 14.3 H (3.8-10.6) k/uL RBC 2.58 L (3.80-5.40) m/uL Hgb 7.9 L (11.4-16.0) gm/dL Hct 25.0 L (34.0-46.0) % RDW 16.8 H (11.5-15.5) % Neutrophils # 11.8 H (1.3-7.7) k/uL Chloride 108 H (98-107) mmol/L BUN 44 H (7-17) mg/dL Creatinine 3.47 H (0.52-1.04) mg/dL POC Glucose (mg/dL) 115 H (75-99) mg/dL Calcium 7.2 L (8.4-10.2) mg/dL Alkaline Phosphatase 158 H (38-126) U/L Total Protein 5.1 L (6.3-8.2) g/dL Albumin 2.1 L (3.5-5.0) g/dL Methylmalonic Acid (<0.40) umol/L Free [place] LC, Quant (0.33-1.94) mg/dL Free [place]ambda LC, Quant (0.57-2.63) mg/dL Crossmatch Microbiology - Last 24 Hours (Table) 08/17/21 01:25 Blood Culture - Preliminary Blood No Growth after 72 hours 08/16/21 01:41 Blood Culture - Preliminary Blood No Growth after 72 hours 08/17/21 11:00 Urine Culture - Final Urine,Voided Enterococcus faecium Escherichia coli
[2021-08-22] MEDS: APIXABAN 2.5 MG TABLET PO SCH ×2 (09:21→21:19)
[2021-08-22] MEDS: FAMOTIDINE 20 MG/2 ML VIAL IV SCH (09:22)
[2021-08-22] MEDS: PANTOPRAZOLE 40 MG/10 ML VIAL IVP SCH ×2 (09:22→21:20)
[2021-08-22] MEDS: FLUoxetine HCL 20 MG CAP PO SCH (09:22)
[2021-08-22] MEDS: PIPERACILLIN-TAZOBACTAM 3.375 GM in SODIUM CHLORIDE 0.9% 100 ML IVPB SCH ×2 (09:23→21:20)
[2021-08-22] MEDS: SODIUM CHLORIDE 0.9% 1,000 ML IV SCH (09:25)
[2021-08-22] MEDS: FUROSEMIDE 10 MG/ML 2 ML VIAL IV SCH (09:31)
[2021-08-22] MEDS: METOPROLOL TARTRATE 25 MG TAB PO SCH ×2 (09:32→21:20)
--- NOTE | 2021-08-22 10:00 | P.PN ---
Subjective Patient is seen in follow-up for acute kidney injury on chronic kidney disease. Renal function stable. Nonoliguric. On 2 L nasal cannula. Off vasopressors. Vital signs are stable. HEENT: Head exam is unremarkable. LUNGS:Breath sounds decreased. HEART: Regular rate and rhythm. ABDOMEN: Soft, no distention. EXTREMITITES: 1+ edema left lower extremity. No edema in the right lower extremity. Objective - Vital Signs Vital signs: Vital Signs Temp 97.4 F L 08/22/21 08:00 Pulse 66 08/22/21 08:00 Resp 17 08/22/21 08:00 BP 102/53 08/22/21 08:00 Pulse Ox 98 08/22/21 08:00 Intake & Output 08/21/21 08/22/21 08/22/21 18:59 06:59 18:59 Intake Total 1570 240 118 Output Total 1100 Balance 470 240 118 Weight 79.2 kg 82.5 kg Intake: IV 820 Levofloxacin 500Mg-D5w 100 Pmx 500 mg In Dextrose/ Water 1 100ml.bag @ 100 mls/hr IVPB Q48H [facility] Rx#: [id number] Piperacillin-Tazobactam 3 100 .375 gm In Sodium Chloride 0.9% 100 ml @ 25 mls/hr IVPB Q12HR [facility] Rx #:[id number] Sodium Chloride 0.9% 1, 620 000 ml @ 40 mls/hr IV . Q24H [facility] Rx#:[id number] Oral 750 240 118 Output: Urine 1100 Other: Voiding Method Indwelling Catheter Bedpan Diaper # Voids 2 # Bowel Movements 1 - Labs CBC & Chem 7: 08/22/21 05:46 08/22/21 05:46 Labs: Abnormal Lab Results - Last 24 Hours (Table) 08/21/21 08/21/21 08/22/21 Range/Units 11:41 20:04 05:46 WBC 10.9 H (3.8-10.6) k/uL RBC 2.97 L (3.80-5.40) m/uL Hgb 9.1 L (11.4-16.0) gm/dL Hct 29.9 L (34.0-46.0) % MCV 100.7 H (80.0-100.0) fL MCHC 30.3 L (31.0-37.0) g/dL RDW 16.3 H (11.5-15.5) % Neutrophils # 8.1 H (1.3-7.7) k/uL Chloride (98-107) mmol/L Carbon Dioxide (22-30) mmol/L BUN (7-17) mg/dL Creatinine (0.52-1.04) mg/dL Glucose (74-99) mg/dL POC Glucose (mg/dL) 121 H 103 H (75-99) mg/dL Calcium (8.4-10.2) mg/dL 08/22/21 Range/Units 05:46 WBC (3.8-10.6) k/uL RBC (3.80-5.40) m/uL Hgb (11.4-16.0) gm/dL Hct (34.0-46.0) % MCV (80.0-100.0) fL MCHC (31.0-37.0) g/dL RDW (11.5-15.5) % Neutrophils # (1.3-7.7) k/uL Chloride 112 H (98-107) mmol/L Carbon Dioxide 20 L (22-30) mmol/L BUN 36 H (7-17) mg/dL Creatinine 3.26 H (0.52-1.04) mg/dL Glucose 67 L (74-99) mg/dL POC Glucose (mg/dL) (75-99) mg/dL Calcium 7.7 L (8.4-10.2) mg/dL Microbiology - Last 24 Hours (Table) 08/17/21 01:25 Blood Culture - Preliminary Blood No Growth after 120 hours 08/16/21 01:41 Blood Culture - Preliminary Blood No Growth after 120 hours Assessment and Plan Plan: Assessment: 1. Acute kidney injury mostly prerenal secondary to hypovolemia and hemodynamic instability. Creatinine 4.84 on admission -stable at 3.26 today. Non-oliguric. No hydronephrosis noted on CAT scan. 2. Chronic kidney disease stage IIIa with baseline creatinine in the range of 1.3-1.5 secondary to diabetic kidney disease. 3. Left lower extremity DVT. On anticoagulation. 4. A. fib with RVR maintained on metoprolol. 5. Metabolic acidosis secondary to acute kidney injury. s/p bicarbonate drip. 6. Diabetes mellitus. 7. Hypomagnesemia from poor intake. Replaced. Magnesium 1.6 today. 8. Septic shock secondary to UTI. Urine culture positive for enterococcus. 9. Acute blood loss anemia. Status post blood transfusion 08/19/2021. Improved. No active bleeding. On Aranesp. 10. Hypokalemia from poor intake. Replaced. Plan: Hep-Lock IV fluids. Receiving second dose of 20 mg IV Lasix today. Avoid nephrotoxins. Preserved ejection fraction. Continue to monitor renal function and urine output. Add oral sodium bicarbonate.
--- NOTE | 2021-08-22 11:23 | P.PN ---
<Marisa Martinez - Last Filed: 08/22/21 11:19> Subjective Progress Note Date: 08/22/21 CHIEF COMPLAINT: GI bleed HISTORY OF PRESENT ILLNESS: Patient admitted to the hospital with mental status changes. Patient transferred out of the ICU to the cardiac floor yesterday. Patient sitting up in bed comfortably. No signs of GI bleed. Hemoglobin has gone up from 8.9-9.1. Afebrile. White count 10.9 Patient is eating small amount of her food. She is tolerating diet. Denies any abdominal pain. Denies any nausea vomiting. Pleasantly confused. PHYSICAL EXAM: VITAL SIGNS: Reviewed. GENERAL: Well-developed in no acute distress. HEENT: No sclera icterus. Extraocular movements grossly intact. Moist buccal mucosa. Head is atraumatic, normocephalic. ABDOMEN: Soft. Nondistended. Nontender. Ileostomy output is brown in color NEUROLOGIC: Awake. Confused. ASSESSMENT: 1. Acute GI bleed. Stool for occult blood positive. Episode of coffee-ground emesis on admission. Patient has no further evidence of GI bleeding 2. Acute on chronic Anemia with acute blood loss anemia 3. Enlarged uterus and pelvic mass. 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 INVESTMENT BANKING MANAGER following and planning further workup outpatient. 4. Altered mental status 5. DVT left leg 6. A. fib 7. UTI PLAN: -Continue supportive care -Surgical service will sign off. Please call with any questions or concerns. Physician E D Tech note has been reviewed by physician. Signing provider agrees with the documented findings, assessment, and plan of care. Objective - Vital Signs Vital signs: Vital Signs Temp 97.4 F L 08/22/21 08:00 Pulse 66 08/22/21 08:00 Resp 17 08/22/21 08:00 BP 102/53 08/22/21 08:00 Pulse Ox 98 08/22/21 08:00 Intake & Output 08/21/21 08/22/21 08/22/21 18:59 06:59 18:59 Intake Total 1570 240 118 Output Total 1100 Balance 470 240 118 Weight 79.2 kg 82.5 kg Intake: IV 820 Levofloxacin 500Mg-D5w 100 Pmx 500 mg In Dextrose/ Water 1 100ml.bag @ 100 mls/hr IVPB Q48H [facility] Rx#: [id number] Piperacillin-Tazobactam 3 100 .375 gm In Sodium Chloride 0.9% 100 ml @ 25 mls/hr IVPB Q12HR [facility] Rx #:[id number] Sodium Chloride 0.9% 1, 620 000 ml @ 40 mls/hr IV . Q24H [facility] Rx#:[id number] Oral 750 240 118 Output: Urine 1100 Other: Voiding Method Indwelling Catheter Bedpan Diaper # Voids 2 # Bowel Movements 1 - Labs CBC & Chem 7: 08/22/21 05:46 08/22/21 05:46 Labs: Abnormal Lab Results - Last 24 Hours (Table) 08/21/21 08/21/21 08/22/21 Range/Units 11:41 20:04 05:46 WBC 10.9 H (3.8-10.6) k/uL RBC 2.97 L (3.80-5.40) m/uL Hgb 9.1 L (11.4-16.0) gm/dL Hct 29.9 L (34.0-46.0) % MCV 100.7 H (80.0-100.0) fL MCHC 30.3 L (31.0-37.0) g/dL RDW 16.3 H (11.5-15.5) % Neutrophils # 8.1 H (1.3-7.7) k/uL Chloride (98-107) mmol/L Carbon Dioxide (22-30) mmol/L BUN (7-17) mg/dL Creatinine (0.52-1.04) mg/dL Glucose (74-99) mg/dL POC Glucose (mg/dL) 121 H 103 H (75-99) mg/dL Calcium (8.4-10.2) mg/dL 08/22/21 Range/Units 05:46 WBC (3.8-10.6) k/uL RBC (3.80-5.40) m/uL Hgb (11.4-16.0) gm/dL Hct (34.0-46.0) % MCV (80.0-100.0) fL MCHC (31.0-37.0) g/dL RDW (11.5-15.5) % Neutrophils # (1.3-7.7) k/uL Chloride 112 H (98-107) mmol/L Carbon Dioxide 20 L (22-30) mmol/L BUN 36 H (7-17) mg/dL Creatinine 3.26 H (0.52-1.04) mg/dL Glucose 67 L (74-99) mg/dL POC Glucose (mg/dL) (75-99) mg/dL Calcium 7.7 L (8.4-10.2) mg/dL Microbiology - Last 24 Hours (Table) 08/17/21 01:25 Blood Culture - Preliminary Blood No Growth after 120 hours 08/16/21 01:41 Blood Culture - Preliminary Blood No Growth after 120 hours <Arash Bailey - Last Filed: 08/22/21 12:28> Subjective I have personally seen and examined the patient, reviewed the CLASSIFICATION ANALYST /PAs history, exam and MDM and agree with the assessment and plan as written. Based on total visit time, I have performed more than 50% of the visit. As above. Patient continues to do well from a surgical point of view. No pain. Tolerating diet. Bilious liquid stools in ostomy appliance. Continue diet as tolerated. Continue gynecologic workup either later during this hospitalization or soon after discharge. We'll sign off. Please call if needed. Objective - Vital Signs Vital signs: Vital Signs Temp 97.4 F L 08/22/21 08:00 Pulse 66 08/22/21 08:00 Resp 17 08/22/21 08:00 BP 102/53 08/22/21 08:00 Pulse Ox 98 08/22/21 08:00 Intake & Output 08/21/21 08/22/21 08/22/21 18:59 06:59 18:59 Intake Total 1570 240 118 Output Total 1100 100 Balance 470 240 18 Weight 79.2 kg 82.5 kg Intake: IV 820 Levofloxacin 500Mg-D5w 100 Pmx 500 mg In Dextrose/ Water 1 100ml.bag @ 100 mls/hr IVPB Q48H [facility] Rx#: [id number] Piperacillin-Tazobactam 3 100 .375 gm In Sodium Chloride 0.9% 100 ml @ 25 mls/hr IVPB Q12HR [facility] Rx #:[id number] Sodium Chloride 0.9% 1, 620 000 ml @ 40 mls/hr IV . Q24H [facility] Rx#:[id number] Oral 750 240 118 Output: Urine 1100 Stool 100 Other: Voiding Method Indwelling Catheter Bedpan Bedpan Diaper Diaper # Voids 2 # Bowel Movements 1 - Labs CBC & Chem 7: 08/22/21 05:46 08/22/21 05:46 Labs: Abnormal Lab Results - Last 24 Hours (Table) 08/21/21 08/22/21 08/22/21 Range/Units 20:04 05:46 05:46 WBC 10.9 H (3.8-10.6) k/uL RBC 2.97 L (3.80-5.40) m/uL Hgb 9.1 L (11.4-16.0) gm/dL Hct 29.9 L (34.0-46.0) % MCV 100.7 H (80.0-100.0) fL MCHC 30.3 L (31.0-37.0) g/dL RDW 16.3 H (11.5-15.5) % Neutrophils # 8.1 H (1.3-7.7) k/uL Chloride 112 H (98-107) mmol/L Carbon Dioxide 20 L (22-30) mmol/L BUN 36 H (7-17) mg/dL Creatinine 3.26 H (0.52-1.04) mg/dL Glucose 67 L (74-99) mg/dL POC Glucose (mg/dL) 103 H (75-99) mg/dL Calcium 7.7 L (8.4-10.2) mg/dL 08/22/21 Range/Units 11:23 WBC (3.8-10.6) k/uL RBC (3.80-5.40) m/uL Hgb (11.4-16.0) gm/dL Hct (34.0-46.0) % MCV (80.0-100.0) fL MCHC (31.0-37.0) g/dL RDW (11.5-15.5) % Neutrophils # (1.3-7.7) k/uL Chloride (98-107) mmol/L Carbon Dioxide (22-30) mmol/L BUN (7-17) mg/dL Creatinine (0.52-1.04) mg/dL Glucose (74-99) mg/dL POC Glucose (mg/dL) 124 H (75-99) mg/dL Calcium (8.4-10.2) mg/dL Microbiology - Last 24 Hours (Table) 08/17/21 01:25 Blood Culture - Preliminary Blood No Growth after 120 hours 08/16/21 01:41 Blood Culture - Preliminary Blood No Growth after 120 hours
[2021-08-22 11:24] LABS: Glucose,Whole Blood 124 mg/dL (75-99)
[2021-08-22] MEDS: MAGNESIUM SULFATE-D5W PMX 1 GM in DEXTROSE/WATER 1 100ML.BAG IVPB SCH ×2 (12:58→16:30)
[2021-08-22] MEDS: SODIUM BICARBONATE TAB 650 MG TAB PO SCH ×2 (12:58→21:20)
--- NOTE | 2021-08-22 13:50 | P.PN ---
Subjective Progress Note Date: 08/22/21 Principal diagnosis: Atrial fibrillation. On 08/18/2000 patient seen in follow-up in the intensive care unit, she is currently awake and alert, in no acute distress, breathing comfortably, she is on 2 L of oxygen pulse ox is 97-98%, she is answering questions improperly, she denies any acute distress, she remains in atrial fibrillation with a rate of 117 BPM, she is currently on norepinephrine drip. 0.05 mics per kilo per minute, D5W with 3 A of bicarbonate at 100 ML per hour, amiodarone drip is at 0.5 mg/h. Patient is supposed to be restarted on heparin infusion as well after surgical clearance. Her VQ scan showed low probability of PE, patient was found to have left lower extremity DVT. Lung sounds are clear, diminished at the bases, no cough, no congestion, no complaints of chest pain, she remains on combination of antibiotics with Levaquin and Zosyn. Her urine and blood cultures have been negative. CT chest abdomen and pelvis showed mild atelectasis and scarring in the right lung base, no pleural effusion, no pericardial effusion no aneurysm, no hilar masses. There was no evidence of bowel obstruction. No mesenteric edema, no ascites or free air. 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 Echocardiogram has been reviewed showing preserved LV function with EF of 65-70%, mildly enlarged right ventricle, no aortic stenosis or regurgitation, mild tricuspid regurg, mild pulmonary hypertension with right- sided pressure of 37 mmHg. Patient is still on fairly high amount of vasopressors. Beckett catheter is in place, and patient is producing urine in the order of 30-40 mL per hour, her right-sided ileostomy is producing normal amount of greenish liquid stool. Colostomy is not bringing out any output. His labs have been reviewed, her white blood cell count is slightly improved and is currently at 21.5, hemoglobin is 7.7, sodium is 137, potassium is 4.8, chloride is 110, CO2 is 11, BUN 62, creatinine is 4.25. Renal profile is slightly improved compared to last couple of days. Nephrology services are following. Patient does have a recent history of "with 19 infection, her LDH from 08/17/2020 was 1002, and CRP it has not been checked, pro-calcitonin level is 1.5, and urinalysis showed evidence of acute urinary tract infection. Progress note dated 08/19/2021. The patient is again seen in the intensive care unit, room 264. The patient's currently on room air. She's getting dextrose, with 3 ampules of sodium bicarbonate at 100 mL an hour. She is on norepinephrine at 6 mcg/m. She is also getting saline at 75 mL an hour. Hemoglobin is 6.7. We've ordered 1 unit of packed red blood cells. We'll DC the bicarbonate drip. We'll ask for a cortisol level and a TSH, which might possibly explain her ongoing hypotension. Her urine sampling is showing group D enterococcus, and gram-negative bacilli. She remains on Zosyn and Levaquin. I was called by Dr. Downing, who did a pelvic examination on the patient. When she removed her gloved hand from the vault, it was full of blood, and the patient is to have a possible gynecologic malignancy. The patient should eventually have a D&C, and hysteroscopy, but is currently unstable for those procedures. White count is 16.5, hemoglobin 6.7, hematocrit 21.7, and platelet count 199,000. Sodium, potassium, chloride, CO2, anion gap, all normal. BUN is 49 with a creatinine of 3.56. No chest x-ray was done. Progress note dated 08/22/2021. The patient is seen today in room 353. The patient is been in the hospital now for 5 days. She was initially in the intensive care unit, for atrial fibrillation with RVR. At that time, she also had evidence of hypotension. Her urine was positive for enterococcus, group D, and gram-negative bacilli. The patient was evaluated by one of the [employer] doctors, and it was noted that she had blood in her vaginal vault. The physician was concerned about a gynecologic malignancy. She was too unstable at that time to have any sort of procedure. Currently, she is on 2 L nasal cannula. Looks very comfortable. She's getting saline at 20 mL an hour. Laboratory data includes a white count 10.9, hemoglobin 9.1, hematocrit 29.9, and a normal platelet count. Sodium 140, potassium 3.8, chlorides 112, CO2 20, anion gap 8, BUN 36, with a creatinine of 3.26. Chest x-ray shows bilateral small effusions and mild bibasilar atelectasis. Objective - Vital Signs Vital signs: Vital Signs Temp 97.4 F L 08/22/21 08:00 Pulse 66 08/22/21 08:00 Resp 17 08/22/21 08:00 BP 102/53 08/22/21 08:00 Pulse Ox 98 08/22/21 08:00 Intake & Output 08/21/21 08/22/21 08/22/21 18:59 06:59 18:59 Intake Total 1570 240 236 Output Total 1100 150 Balance 470 240 86 Weight 79.2 kg 82.5 kg Intake: IV 820 Levofloxacin 500Mg-D5w 100 Pmx 500 mg In Dextrose/ Water 1 100ml.bag @ 100 mls/hr IVPB Q48H [facility] Rx#: [id number] Piperacillin-Tazobactam 3 100 .375 gm In Sodium Chloride 0.9% 100 ml @ 25 mls/hr IVPB Q12HR [facility] Rx #:[id number] Sodium Chloride 0.9% 1, 620 000 ml @ 40 mls/hr IV . Q24H [facility] Rx#:[id number] Oral 750 240 236 Output: Urine 1100 Stool 150 Other: Voiding Method Indwelling Catheter Bedpan Bedpan Diaper Diaper # Voids 2 # Bowel Movements 1 - Exam No acute distress, oriented 3. Currently on 2 L. Saturations 98%. HEENT examination is grossly unremarkable. Mucous membranes are dry. Neck supple. Full range of motion. No adenopathy thyromegaly or neck vein distention. Cardiovascular examination reveals an irregular rhythm and rate. S1-S2 normal. No S3 or S4. No discernible murmur noted. Heart rate is 66 bpm. Lungs reveal clear breath sounds. Breath sounds are equal bilaterally. No adventitious lung sounds including wheezes rhonchi or crackles. Abdomen soft bowel sounds are heard. No masses or tenderness. Extremities are intact. No cyanosis clubbing or edema. Skin is without rash or lesion. Neurologic examination is brief but nonfocal. - Labs CBC & Chem 7: 08/22/21 05:46 08/22/21 05:46 Labs: Abnormal Lab Results - Last 24 Hours (Table) 08/21/21 08/22/21 08/22/21 Range/Units 20:04 05:46 05:46 WBC 10.9 H (3.8-10.6) k/uL RBC 2.97 L (3.80-5.40) m/uL Hgb 9.1 L (11.4-16.0) gm/dL Hct 29.9 L (34.0-46.0) % MCV 100.7 H (80.0-100.0) fL MCHC 30.3 L (31.0-37.0) g/dL RDW 16.3 H (11.5-15.5) % Neutrophils # 8.1 H (1.3-7.7) k/uL Chloride 112 H (98-107) mmol/L Carbon Dioxide 20 L (22-30) mmol/L BUN 36 H (7-17) mg/dL Creatinine 3.26 H (0.52-1.04) mg/dL Glucose 67 L (74-99) mg/dL POC Glucose (mg/dL) 103 H (75-99) mg/dL Calcium 7.7 L (8.4-10.2) mg/dL 08/22/21 Range/Units 11:23 WBC (3.8-10.6) k/uL RBC (3.80-5.40) m/uL Hgb (11.4-16.0) gm/dL Hct (34.0-46.0) % MCV (80.0-100.0) fL MCHC (31.0-37.0) g/dL RDW (11.5-15.5) % Neutrophils # (1.3-7.7) k/uL Chloride (98-107) mmol/L Carbon Dioxide (22-30) mmol/L BUN (7-17) mg/dL Creatinine (0.52-1.04) mg/dL Glucose (74-99) mg/dL POC Glucose (mg/dL) 124 H (75-99) mg/dL Calcium (8.4-10.2) mg/dL Microbiology - Last 24 Hours (Table) 08/17/21 01:25 Blood Culture - Preliminary Blood No Growth after 120 hours 08/16/21 01:41 Blood Culture - Preliminary Blood No Growth after 120 hours Assessment and Plan Assessment: Mental status changes, likely related to septic encephalopathy. Acute kidney injury, on top of stage III chronic kidney disease. Anion gap metabolic acidosis. Acute left lower extremity DVT. New-onset atrial fibrillation with RVR. Urinary tract infection, secondary to Escherichia coli, and group D enterococcus. Persistent hypotension, secondary to sepsis. Recent coronavirus infection. Possible gynecologic malignancy. History of CHF with preserved LV function. History of type 2 diabetes mellitus. History of hyperlipidemia. History of hypertension. Osteoarthritis. Chronic neuropathy. COPD. Chronic anemia. Plan: Plan dated 08/19/2021. The patient remains on norepinephrine at 6 mcg/m. We will check a cortisol level and a TSH, to rule out adrenal insufficiency, and hypothyroidism. In addition, we'll give the patient 1 unit of packed red blood cells. The patient's IV will be increased to 75 mL an hour. We will DC the bicarbonate drip. The patient remains on Zosyn and Levaquin, for a urinary tract infection. Additional recommendations and suggestions are forthcoming. Prognosis is guarded. We will continue to follow the patient and make recommendations where appropriate. Plan dated 08/22/2021. The patient remains on Zosyn for her urinary tract infection. She was placed back on Eliquis. She's had no further bleeding. She will need to see the gynecologic physician post discharge, for further evaluation. From the pulmonary standpoint, the patient's doing well. She denies any shortness of breath, coughing, wheezing, or phlegm production. The patient's labs, x-rays, and medications are reviewed. Everything does seem appropriate. We will continue to follow. Prognosis is guarded. Time with Patient: Less than 30
--- NOTE | 2021-08-22 14:06 | P.PN ---
Subjective Progress Note Date: 08/22/21 HPI: Patient is a very pleasant 80-year-old female with a past medical history of CAD with previous MA, diastolic heart failure with previously known EF of 55-60%, severe pulmonary hypertension, atrial fibrillation on anticoagulation with Eliquis, hypertension, hyperlipidemia, CKD stage III, insulin-dependent diabetes mellitus, 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 Quiñonez, and recent admission from 07/29/21-08/04/21 for acute respiratory failure with hypoxia secondary to Covid 19 pneumonitis. Patient presented to the emergency department by EMS with a chief complaint of alteration in mental status, nausea and coffee ground emesis. Patient underwent full evaluation. She was found to be tachycardic 120s to 140s, to 20-24 breaths per minute, hypoxic requiring oxygen supplementation with placement on nonrebreather, and found to have a low-grade temp of 99.9F. EKG revealed atrial fibrillation with a rapid ventricular rate of 148 bpm. Labs revealed significant leukocytosis with WBC count 28.4, anemic with hemoglobin of 9.7, hyperkalemic with potassium 5.4, acidotic with chloride 107, CO2 8, anion gap 22, and plasma lactic acid of 5.0 acute kidney injury with BUN 60, creatinine 4.84, and GFR of 8 with baseline creatinine of 1.8-2.0. Troponins were elevated at 0.062 and 0.054. Pro-calcitonin also elevated at 1.50. Urinalysis positive for infection. Chest x-ray showing mild pulmonary fibrotic changes with no evidence of heart failure or acute cardiopulmonary process. CT chest, abdomen, and pelvis without contrast revealed no evidence of bowel obstruction with no free air however there was a reported new complex 6 x 4 cm cyst on right ovary which is reported being new compared to previous exam. Left lower extremity Dopplers were positive for DVT extending from the left popliteal vein to the femoral vein. Patient was started on heparin infusion for treatment of acute DVT, Cardizem infusion for atrial fibrillation with RVR, bicarb infusion for severe metabolic acidosis with a critical bicarb of 8. Given sepsis bolus of 3 L normal saline and started on IV antibiotics Zosyn and Levaquin. Consultations were placed general surgery for concerns of GI bleed, cardiology for elevated troponin and A. fib RVR, nephrology for acute renal failure and severe metabolic acidosis requiring bicarbonate infusion, and hematology secondary to development of DVT while on oral anticoagulant. Consult was also placed to die try out worker secondary to critically ill patient, at this time patient awaiting bed placement on stepdown unit. Called to update patient's son, Yanick, I spoke with him and updated him on mother's critical condition. 08/18: Patient remains in the intensive care unit. She's been on amiodarone and heparin for A. fib with RVR, she is currently on norepinephrine and also receiving magnesium replacement. Patient has black stool in her ostomy and heparin will be discontinued. Abdomen is firm. Consult is in place with general surgery and she has been cleared to start diet. Patient is seen and followed by multiple consultants including oncology, cardiology, nephrology and die try out worker. Echocardiogram reveals EF of 65-70%, aneurysmal intra-atrial septum, mild tricuspid regurgitation, no aortic stenosis or regurgitation. Mild mitral ossification. Mild pulmonary hypertension, RVSP 37.19.. Pulmonary perfusion study showed small perfusion defects correspond to low probability for pulmonary embolism. 08/19: She remains in the intensive care unit and on norepinephrine. She has been afebrile, heart rate 68, blood pressure 106/41 and pulse ox 93% on room air. Hemoglobin this morning is 6.7 and 1 unit of packed RBCs has been ordered. Patient has liquid dark brown stool in her ostomy bag. Other blood work reveals BUN of 49 creatinine 3.56 which is improving. Blood sugars are running between 67 and 150. We'll discontinue scheduled NovoLog as patient is now off drips containing D5W. Bicarbonate drip discontinued. Patient remains confused. Urine culture is showing group D enterococcus and gram-negative bacilli. Blood culture no growth at 48 hours 2 specimens. 08/20: Patient is seen today in the emergency center. She is off vasopressors and has been downgraded to the cardiac stepdown unit. Patient is more oriented today. She denies having any shortness of breath or cough. Output from ostomy is brown liquid, no blood noted. Patient denies abdominal pain. She is still not eating very much but no nausea or vomiting. Patient received 1 unit of packed RBCs yesterday and hemoglobin is 7.9. WBC 14.3, platelet count 177. BUN 44 and creatinine 3.47. Blood sugars are running between 82 and 150s. Urine culture finalized with Enterococcus faecium and E. coli. Patient has been resumed on eliquis. 08/21: Patient remains in the intensive care unit waiting for a bed on the cardiac stepdown unit. She's been afebrile, heart rate 60, blood pressure 108/79, pulse ox 92% on room air. Repeat blood work reveals WBC 11.3, hemoglobin 8.9, platelet count 188. Sodium 143, potassium 3.6, chloride 110, CO2 23, BUN 39 creatinine 3.27. Alkaline phosphatase 151. Blood sugars are running between 70 to and 89. Patient is seen today sitting up in recliner in the intensive care unit. She has been started on 3 L nasal cannula. We will start Lasix 20 mg IV daily for 2 days. Repeat chest x-ray reveals mild cardiomegaly and chronic. She will changes with left basilar acute infiltrate and/or atelectasis redemonstrated. No significant change. New small to tiny right pleural effusion. Very decreased IV fluids to 40 mL per hour Nephrology has added Aranesp, potassium replaced. 08/22: Patient is seen today on the cardiac stepdown unit. Patient continues to have confusion and pulled off colostomy bag today. This has been replaced by nursing. She has decreased edema to the lower extremities. Nephrology has discontinued IV Lasix, sodium bicarb added. Repeat chest x-ray reveals right subclavian CVC tip malpositioned. Continue small effusions and adjacent atel ectasis and/or consolidation. Evidence of prior granulomatosis disease. Surgery and [employer] of signed off her case. Discharge planning is difficult as patient is out of halfway days and does not qualify for Medicaid. Patient truly needs long-term placement. Social work is following. Anticipate she will be ready for discharge next week Review Of Systems: Constitutional: No documented fever, no chills, no night sweats. No weight change. Noted weakness, notedfatigue. No daytime sleepiness. EENT: No headache. No blurred vision or double vision, no loss of vision. No loss of Hearing, no ringing in the ears, no dizziness. No nasal drainage or congestion. No epistaxis. No sore throat. Lungs: No shortness of breath, cough, no sputum production. No wheezing. Cardiovascular: No chest pain, no lower extremity edema. No palpitations. No paroxysmal nocturnal dyspnea. No orthopnea. No lightheadedness or dizziness. No syncopal episodes. Abdominal: No abdominal pain. No nausea, vomiting. No diarrhea. No constipation. No bloody or tarry stools. Noted loss of appetite. Genitourinary: No dysuria, increased frequency, urgency. No urinary retention. Vaginal bleeding-resolved. Musculoskeletal: No myalgias. No muscle weakness, no gait dysfunction, no frequent falls. No back pain. No neck pain. Integumentary: No wounds, no lesions. No rash or pruritus. No unusual bruising. No change in hair or nails. Neurologic: No aphasia. No facial droop. Noted change in mentation. No head injury. No headache. No paralysis. No paresthesia. Psychiatric: No depression. No anxiety. No mood swings. Endocrine: No abnormal blood sugars. No weight change. No excessive sweating or thirst. No cold intolerance. Physical exam: Gen: This is an elderly frail appearing 80-year-old female, resting in recliner in no acute distress. HEENT: Head is atraumatic, normocephalic. Pupils equal, round. Sclerae is anicteric. Patient is edentulous. NECK: Supple. No JVD. No lymphadenopathy. No thyromegaly. LUNGS: Decreased breath some bilateral rhonchi and mild expiratory wheezes. HEART: Irregular rate and rhythm. Monitor atrial fibrillation. ABDOMEN: Abdomen firm, no rebound or rigidity. Ostomy on the right side with brown liquid stool. Beckett catheter draining nicolette urine EXTREMITIES: Noted pedal edema. No calf tenderness. NEUROLOGICAL: Patient is awake, alert and oriented to person. Assessment and Plan of Care: Metabolic encephalopathy, Likely multifactorial resulting from current critical state with severe metabolic acidosis, severe sepsis, PETE, and following conditions listed below. Severe sepsis with septic shock requiring vasopressors of unclear etiology possibly urinary tract infection versus other source such as abdominal Continue care in the CSD unit, die try out worker consult appreciated. continue Zosyn, vasopressor support has been discontinued Acute GI bleed with reports of coffee-ground emesis Acute on chronic anemia slightly below baseline hemoglobin of 9, acute blood loss anemia Suspected [employer] malignancy with vaginal bleeding, resolved, unstable for surgical intervention at this time Continue Protonix 40 mg IV twice daily, general surgery consult, diet advanced to regular. Continue to monitor hemoglobin. Heparin drip discontinued. Patient status post transfusion 1 unit of packed RBCs. Acute DVT of left lower extremity Acute hypoxic respiratory failure, recent admission for Covid 19 pneumonitis from 07/29/21 through 08/04/21 Pulmonary embolus ruled out. Eliquis 2.5 mg twice daily. Acute kidney injury on chronic kidney disease stage III Severe Metabolic acidosis Lactic acidosis Enterococcus faecium and E. coli UTI -Consult nephrology appreciated -Insert Beckett catheter for close monitoring of I's and O's. -Continue Zosyn -Caution with nephrotoxic medications. -Sodium bicarb 650 mg twice daily Atrial fibrillation with RVR, paroxysmal atrial fibrillation Elevated troponin, flat, likely secondary to RVR Chronic diastolic heart failure with previously known EF of 55-60% Off Cardizem drip, cardiology consult appreciated, continue Lopressor 25 mg twice daily, eliquis 2.5 mg twice daily. Diabetes mellitus type 2 insulin requiring, uncontrolled with hyperglycemia. Continue NovoLog scale, add NovoLog 5 units with meals Incidental finding on imaging -CT reported new complex 6 x 4 cm cyst on right ovary which is reported being new compared to previous exam -Previous surgical report from 06/20/21 stated findings of a 3.5 cm lesion on right ovary concerning for potential ovarian cancer Oncology consult appreciated Hypertension. Patient is off anti-hypertensive medications. Hyperlipidemia CODE STATUS: Full code DVT prophylaxis: SCDs and FAHEEM hose DISCHARGE PLAN Subacute rehab next week, awaiting Medicaid application. Impression and plan of care have been directed as dictated by the signing p adolph. Thais Scott nurse practitioner acting as scribe for signing physician. Objective - Vital Signs Vital signs: Vital Signs Temp 97.4 F L 08/22/21 08:00 Pulse 66 08/22/21 08:00 Resp 17 08/22/21 08:00 BP 102/53 08/22/21 08:00 Pulse Ox 98 08/22/21 08:00 Intake & Output 08/21/21 08/22/21 08/22/21 18:59 06:59 18:59 Intake Total 1570 240 118 Output Total 1100 100 Balance 470 240 18 Weight 79.2 kg 82.5 kg Intake: IV 820 Levofloxacin 500Mg-D5w 100 Pmx 500 mg In Dextrose/ Water 1 100ml.bag @ 100 mls/hr IVPB Q48H [facility] Rx#: [id number] Piperacillin-Tazobactam 3 100 .375 gm In Sodium Chloride 0.9% 100 ml @ 25 mls/hr IVPB Q12HR [facility] Rx #:[id number] Sodium Chloride 0.9% 1, 620 000 ml @ 40 mls/hr IV . Q24H [facility] Rx#:[id number] Oral 750 240 118 Output: Urine 1100 Stool 100 Other: Voiding Method Indwelling Catheter Bedpan Bedpan Diaper Diaper # Voids 2 # Bowel Movements 1 - Labs CBC & Chem 7: 08/22/21 05:46 08/22/21 05:46 Labs: Abnormal Lab Results - Last 24 Hours (Table) 08/21/21 08/22/21 08/22/21 Range/Units 20:04 05:46 05:46 WBC 10.9 H (3.8-10.6) k/uL RBC 2.97 L (3.80-5.40) m/uL Hgb 9.1 L (11.4-16.0) gm/dL Hct 29.9 L (34.0-46.0) % MCV 100.7 H (80.0-100.0) fL MCHC 30.3 L (31.0-37.0) g/dL RDW 16.3 H (11.5-15.5) % Neutrophils # 8.1 H (1.3-7.7) k/uL Chloride 112 H (98-107) mmol/L Carbon Dioxide 20 L (22-30) mmol/L BUN 36 H (7-17) mg/dL Creatinine 3.26 H (0.52-1.04) mg/dL Glucose 67 L (74-99) mg/dL POC Glucose (mg/dL) 103 H (75-99) mg/dL Calcium 7.7 L (8.4-10.2) mg/dL 08/22/21 Range/Units 11:23 WBC (3.8-10.6) k/uL RBC (3.80-5.40) m/uL Hgb (11.4-16.0) gm/dL Hct (34.0-46.0) % MCV (80.0-100.0) fL MCHC (31.0-37.0) g/dL RDW (11.5-15.5) % Neutrophils # (1.3-7.7) k/uL Chloride (98-107) mmol/L Carbon Dioxide (22-30) mmol/L BUN (7-17) mg/dL Creatinine (0.52-1.04) mg/dL Glucose (74-99) mg/dL POC Glucose (mg/dL) 124 H (75-99) mg/dL Calcium (8.4-10.2) mg/dL Microbiology - Last 24 Hours (Table) 08/17/21 01:25 Blood Culture - Preliminary Blood No Growth after 120 hours 08/16/21 01:41 Blood Culture - Preliminary Blood No Growth after 120 hours
--- NOTE | 2021-08-22 14:43 | P.PN ---
Subjective Progress Note Date: 08/22/21 Antiphospholipid work-up negative. DOAC ok for antivoagulation at discharge. MGUS studies do not appear worsening Objective - Vital Signs Vital signs: Vital Signs Temp 97.4 F L 08/22/21 08:00 Pulse 66 08/22/21 08:00 Resp 17 08/22/21 08:00 BP 102/53 08/22/21 08:00 Pulse Ox 98 08/22/21 08:00 Intake & Output 08/21/21 08/22/21 08/22/21 18:59 06:59 18:59 Intake Total 1570 240 236 Output Total 1100 150 Balance 470 240 86 Weight 79.2 kg 82.5 kg Intake: IV 820 Levofloxacin 500Mg-D5w 100 Pmx 500 mg In Dextrose/ Water 1 100ml.bag @ 100 mls/hr IVPB Q48H STEPHANIE Rx#: [id number] Piperacillin-Tazobactam 3 100 .375 gm In Sodium Chloride 0.9% 100 ml @ 25 mls/hr IVPB Q12HR STEPHANIE Rx #:[id number] Sodium Chloride 0.9% 1, 620 000 ml @ 40 mls/hr IV . Q24H STEPHANIE Rx#:[id number] Oral 750 240 236 Output: Urine 1100 Stool 150 Other: Voiding Method Indwelling Catheter Bedpan Bedpan Diaper Diaper # Voids 2 # Bowel Movements 1 - Exam Alert poor historian NAD Lung: Diminished bases Heart: Tachy Abd: Soft gen edema - Labs CBC & Chem 7: 08/22/21 05:46 08/22/21 05:46 Labs: Abnormal Lab Results - Last 24 Hours (Table) 08/21/21 08/22/21 08/22/21 Range/Units 20:04 05:46 05:46 WBC 10.9 H (3.8-10.6) k/uL RBC 2.97 L (3.80-5.40) m/uL Hgb 9.1 L (11.4-16.0) gm/dL Hct 29.9 L (34.0-46.0) % MCV 100.7 H (80.0-100.0) fL MCHC 30.3 L (31.0-37.0) g/dL RDW 16.3 H (11.5-15.5) % Neutrophils # 8.1 H (1.3-7.7) k/uL Chloride 112 H (98-107) mmol/L Carbon Dioxide 20 L (22-30) mmol/L BUN 36 H (7-17) mg/dL Creatinine 3.26 H (0.52-1.04) mg/dL Glucose 67 L (74-99) mg/dL POC Glucose (mg/dL) 103 H (75-99) mg/dL Calcium 7.7 L (8.4-10.2) mg/dL 08/22/21 Range/Units 11:23 WBC (3.8-10.6) k/uL RBC (3.80-5.40) m/uL Hgb (11.4-16.0) gm/dL Hct (34.0-46.0) % MCV (80.0-100.0) fL MCHC (31.0-37.0) g/dL RDW (11.5-15.5) % Neutrophils # (1.3-7.7) k/uL Chloride (98-107) mmol/L Carbon Dioxide (22-30) mmol/L BUN (7-17) mg/dL Creatinine (0.52-1.04) mg/dL Glucose (74-99) mg/dL POC Glucose (mg/dL) 124 H (75-99) mg/dL Calcium (8.4-10.2) mg/dL Microbiology - Last 24 Hours (Table) 08/17/21 01:25 Blood Culture - Preliminary Blood No Growth after 120 hours 08/16/21 01:41 Blood Culture - Preliminary Blood No Growth after 120 hours Assessment and Plan (1) DVT (deep venous thrombosis) Narrative/Plan: New Acute Extensive DVT - Unable to assess PE with COntrasted CT due to renal function, VQ low p robability - Negative for Antiphospholipid syndrome prior to AC determination since recent COVID infection Current Visit: Yes Status: Acute Code(s): I82.409 - ACUTE EMBOLISM AND THOMBOS UNSP DEEP VN UNSP LOWER EXTREMITY SNOMED Code(s): 026316062 (2) MGUS (monoclonal gammopathy of unknown significance) Narrative/Plan: Re-evaluation stable Current Visit: Yes Status: Acute Code(s): D47.2 - MONOCLONAL GAMMOPATHY SNOMED Code(s): 904116725 (3) Normocytic anemia Narrative/Plan: Saturation low 8%, Ferritin over 300 but maybe inaccurate due to time of draw. Stool OB Positive, monitor closely for bleeding especially on AC therapy and rec full GI evaluation if worsening hemoglobin. Current Visit: Yes Status: Acute Code(s): D64.9 - ANEMIA, UNSPECIFIED SNOMED Code(s): 043293145 (4) Acute abdominal pain Current Visit: No Status: Acute Code(s): R10.9 - UNSPECIFIED ABDOMINAL PAIN SNOMED Code(s): 292554301 (5) Leukocytosis Current Visit: No Status: Acute Code(s): D72.829 - ELEVATED WHITE BLOOD CELL COUNT, UNSPECIFIED SNOMED Code(s): 111293909 (6) Stage 3 chronic kidney disease due to benign hypertension Current Visit: No Status: Acute Code(s): I12.9 - HYPERTENSIVE CHRONIC KIDNEY DISEASE W STG 1-4/UNSP CHR KDNY; N18.30 - CHRONIC KIDNEY DISEASE, STAGE 3 UNSPECIFIED SNOMED Code(s): 349457996020810 (7) Hypotension Narrative/Plan: Septic work-up Positive UTI Current Visit: Yes Status: Acute Code(s): I95.9 - HYPOTENSION, UNSPECIFIED SNOMED Code(s): 20003638 (8) Acute kidney injury Narrative/Plan: Nephrology following Current Visit: Yes Status: Acute Code(s): N17.9 - ACUTE KIDNEY FAILURE, UNSPECIFIED SNOMED Code(s): 15831036 (9) Altered mental status Current Visit: Yes Status: Acute Code(s): R41.82 - ALTERED MENTAL STATUS, UNSPECIFIED SNOMED Code(s): 964491236 (10) Macrocytosis Narrative/Plan: B12 and Folate ordered MMA increased - B12 added and Folic Acid with low Folate level Current Visit: Yes Status: Acute Code(s): D75.89 - OTHER SPECIFIED DISEASES OF BLOOD AND BLOOD-FORMING ORGANS SNOMED Code(s): 333741024
[2021-08-22] MEDS: AMMONIUM LACTATE 12% LOTION 225 GM BTL TOPICAL SCH ×2 (16:30→21:19)
[2021-08-22 16:37] LABS: Glucose,Whole Blood 204 mg/dL (75-99)
[2021-08-22 20:33] LABS: Glucose,Whole Blood 195 mg/dL (75-99)
--- NOTE | 2021-08-22 21:00 | PN ---
PROGRESS NOTE DATE OF SERVICE: 08/22/2021 REASON FOR FOLLOWUP: Urinary tract infection. INTERVAL HISTORY: The patient is afebrile. The patient is currently breathing comfortably. The patient denies having any chest pain or shortness of breath. Occasional cough. No abdominal pain or diarrhea. PHYSICAL EXAMINATION: Blood pressure 107/71 with a pulse of 97, temperature 98.8. She is 97% on 2 L nasal cannula. General description is an elderly female lying in bed in no distress. Respiratory system: Unlabored breathing, decreased intensity of breath sounds. No wheeze. Heart S1, S2. Regular rate and rhythm. Abdomen soft, no tenderness. LABS: Hemoglobin is 9.1 with a white count of 10.9, creatinine 3.26. DIAGNOSTIC IMPRESSION AND PLAN: Patient with Enterococcus faecium and Escherichia coli urinary tract infection, covered with Zosyn. Hopefully switch to oral antibiotic on discharge and monitor clinical course closely. MMODL / IJN: [id number] /
[2021-08-22] MEDS: PRAVASTATIN SODIUM 40 MG TAB PO SCH (21:20)
[2021-08-23 06:08] LABS: Glucose,Whole Blood 101 mg/dL (75-99)
[2021-08-23] MEDS: INSULIN ASPART (NovoLOG) 100 UNIT/ML VIAL SQ SCH ×4 (06:35→20:28)
--- NOTE | 2021-08-23 08:18 | P.PN ---
Subjective Patient is seen in follow-up for acute kidney injury on chronic kidney disease. Renal function stable. On room air. Oral intake fair. Denies chest pain or shortness of breath. Has been voiding. Vital signs are stable. HEENT: Head exam is unremarkable. LUNGS:Breath sounds decreased. HEART: Regular rate and rhythm. ABDOMEN: Soft, no distention. EXTREMITITES: 1+ edema left lower extremity. No edema in the right lower extremity. Objective - Vital Signs Vital signs: Vital Signs Temp 98.2 F 08/23/21 04:00 Pulse 60 08/23/21 04:00 Resp 16 08/23/21 04:00 BP 111/66 08/23/21 04:00 Pulse Ox 93 L 08/23/21 04:00 Intake & Output 08/22/21 08/23/21 08/23/21 18:59 06:59 18:59 Intake Total 476 240 Output Total 50 200 Balance 426 40 Intake: Oral 476 240 Output: Stool 50 Urine/Stool Mix 200 Other: Voiding Method Diaper Diaper # Voids 2 # Bowel Movements 350 1 - Labs CBC & Chem 7: 08/22/21 05:46 08/22/21 05:46 Labs: Abnormal Lab Results - Last 24 Hours (Table) 08/17/21 08/22/21 08/22/21 Range/Units 14:23 11:23 16:36 POC Glucose (mg/dL) 124 H 204 H (75-99) mg/dL Erythropoietin 38.33 H (2.00-30.00) mIU/mL 08/22/21 08/23/21 Range/Units 19:59 06:07 POC Glucose (mg/dL) 195 H 101 H (75-99) mg/dL Erythropoietin (2.00-30.00) mIU/mL Microbiology - Last 24 Hours (Table) 08/17/21 01:25 Blood Culture - Final Blood No Growth after 144 hours 08/16/21 01:41 Blood Culture - Final Blood No Growth after 144 hours Assessment and Plan Plan: Assessment: 1. Acute kidney injury mostly prerenal secondary to hypovolemia and hemodynamic instability. Creatinine 4.84 on admission - stable at 3.26 yesterday. Non- oliguric. No hydronephrosis noted on CAT scan. 2. Chronic kidney disease stage IIIa with baseline creatinine in the range of 1.3-1.5 secondary to diabetic kidney disease. 3. Left lower extremity DVT. On anticoagulation. 4. A. fib with RVR maintained on metoprolol. 5. Metabolic acidosis secondary to acute kidney injury. s/p bicarbonate drip. On oral bicarbonate. 6. Diabetes mellitus. 7. Hypomagnesemia from poor intake. Replaced. 8. Septic shock secondary to UTI. Urine culture positive for enterococcus. 9. Acute blood loss anemia. Status post blood transfusion 08/19/2021. Improved. No active bleeding. On Aranesp. 10. Hypokalemia from poor intake. Replaced. Plan: Encourage oral intake. Avoid nephrotoxins. Preserved ejection fraction. Continue to monitor renal function and urine output. Morning labs pending.
[2021-08-23] MEDS: PANTOPRAZOLE 40 MG/10 ML VIAL IVP SCH ×2 (08:44→20:28)
[2021-08-23] MEDS: PIPERACILLIN-TAZOBACTAM 3.375 GM in SODIUM CHLORIDE 0.9% 100 ML IVPB SCH ×2 (08:44→20:29)
[2021-08-23] MEDS: FAMOTIDINE 20 MG/2 ML VIAL IV SCH (08:45)
[2021-08-23] MEDS: APIXABAN 2.5 MG TABLET PO SCH ×2 (08:45→20:28)
[2021-08-23] MEDS: CYANOCOBALAMIN 500 MCG TAB PO SCH (08:45)
[2021-08-23] MEDS: SODIUM BICARBONATE TAB 650 MG TAB PO SCH ×2 (08:46→20:28)
[2021-08-23] MEDS: METOPROLOL TARTRATE 25 MG TAB PO SCH ×2 (08:46→20:28)
[2021-08-23] MEDS: FLUoxetine HCL 20 MG CAP PO SCH (08:46)
[2021-08-23] MEDS: FOLIC ACID 1 MG TAB PO SCH (08:46)
[2021-08-23] MEDS: AMMONIUM LACTATE 12% LOTION 225 GM BTL TOPICAL SCH ×2 (08:47→20:28)
[2021-08-23] MEDS: SODIUM CHLORIDE 0.9% 1,000 ML IV SCH ×2 (08:47→20:29)
[2021-08-23 08:57] LABS: Calcium 7.5 mg/dL (8.4-10.2); Magnesium 1.9 mg/dL (1.6-2.3); Potassium 3.4 mmol/L (3.5-5.1)
[2021-08-23] MEDS ORDERED: Potassium Replacement Protocol 1 EACH MISC MISCELLANE PRN (09:17)
--- NOTE | 2021-08-23 09:22 | P.PN ---
Subjective Progress Note Date: 08/23/21 Principal diagnosis: Hosptial day #7 with multiple medical issues, renal failure, urosepsis, atrial fibrillation, R ovarian cyst, L DVT on eloquis Scant vaginal spotting Objective - Vital Signs Vital signs: Vital Signs Temp 98.2 F 08/23/21 04:00 Pulse 60 08/23/21 04:00 Resp 16 08/23/21 04:00 BP 111/66 08/23/21 04:00 Pulse Ox 93 L 08/23/21 04:00 Intake & Output 08/22/21 08/23/21 08/23/21 18:59 06:59 18:59 Intake Total 476 240 Output Total 50 200 Balance 426 40 Intake: Oral 476 240 Output: Stool 50 Urine/Stool Mix 200 Other: Voiding Method Diaper Diaper # Voids 2 # Bowel Movements 350 1 - Exam essentially unchanged - Constitutional General appearance: Present: average body habitus - Genitourinary Genitourinary Comment(s): Scant dark vaginal spotting. No pelvic complaints - Labs CBC & Chem 7: 08/22/21 05:46 08/23/21 08:03 Labs: Abnormal Lab Results - Last 24 Hours (Table) 08/17/21 08/22/21 08/22/21 Range/Units 14:23 11:23 16:36 Potassium (3.5-5.1) mmol/L Chloride (98-107) mmol/L Carbon Dioxide (22-30) mmol/L BUN (7-17) mg/dL Creatinine (0.52-1.04) mg/dL POC Glucose (mg/dL) 124 H 204 H (75-99) mg/dL Calcium (8.4-10.2) mg/dL Erythropoietin 38.33 H (2.00-30.00) mIU/mL 08/22/21 08/23/21 08/23/21 Range/Units 19:59 06:07 08:03 Potassium 3.4 L (3.5-5.1) mmol/L Chloride 110 H (98-107) mmol/L Carbon Dioxide 20 L (22-30) mmol/L BUN 33 H (7-17) mg/dL Creatinine 2.94 H (0.52-1.04) mg/dL POC Glucose (mg/dL) 195 H 101 H (75-99) mg/dL Calcium 7.5 L (8.4-10.2) mg/dL Erythropoietin (2.00-30.00) mIU/mL Microbiology - Last 24 Hours (Table) 08/17/21 01:25 Blood Culture - Final Blood No Growth after 144 hours 08/16/21 01:41 Blood Culture - Final Blood No Growth after 144 hours Assessment and Plan Assessment: Hospital day #7 with ongoing medical issues. R ovarian cyst 5cm and scant vaginal spotting Plan: OVA-1 testing (screen for ovarian cancer) drawn and pending. This is a send-out lab and may be another 7-10 days for results. In addition the patient will need a hysteroscopy, D and C to evaluate the vaginal bleeding and slightly increased uterine size sonographically. Patient is not deemed medically stable at this time for surgery. Will certainly be happy to see the patient in the office for follow up on the ovarian cyst, OVA testing and to schedule outpatient surgery as clinically appropriate. Thank you for the consult. Will sign off at this time. Time with Patient: Less than 30
--- NOTE | 2021-08-23 11:06 | P.PN ---
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 Quiñonez, and recent admission from 07/29/21-08/04/21 for acute respiratory failure with hypoxia secondary to Covid 19 pneumonitis. Patient presented to the emergency department by EMS with a chief complaint of alteration in mental status, nausea and coffee ground emesis. Patient underwent full evaluation. She was found to be tachycardic 120s to 140s, to 20-24 breaths per minute, hypoxic requiring oxygen supplementation with placement on nonrebreather, and found to have a low-grade temp of 99.9F. EKG revealed atrial fibrillation with a rapid ventricular rate of 148 bpm. Labs revealed significant leukocytosis with WBC count 28.4, anemic with hemoglobin of 9.7, hyperkalemic with potassium 5.4, acidotic with chloride 107, CO2 8, anion gap 22, and plasma lactic acid of 5.0 acute kidney injury with BUN 60, creatinine 4.84, and GFR of 8 with baseline creatinine of 1.8-2.0. Troponins were elevated at 0.062 and 0.054. Pro-calcitonin also elevated at 1.50. Urinalysis positive for infection. Chest x-ray showing mild pulmonary fibrotic changes with no evidence of heart failure or acute cardiopulmonary process. CT chest, abdomen, and pelvis without contrast revealed no evidence of bowel obstruction with no free air however there was a reported new complex 6 x 4 cm cyst on right ovary which is reported being new compared to previous exam. Left lower extremity Dopplers were positive for DVT extending from the left popliteal vein to the femoral vein. Patient was started on heparin infusion for treatment of acute DVT, Cardizem infusion for atrial fibrillation with RVR, bicarb infusion for severe metabolic acidosis with a critical bicarb of 8. Given sepsis bolus of 3 L normal saline and started on IV antibiotics Zosyn and Levaquin. Consultations were placed general surgery for concerns of GI bleed, cardiology for elevated troponin and A. fib RVR, nephrology for acute renal failure and severe metabolic acidosis requiring bicarbonate infusion, and hematology secondary to development of DVT while on oral anticoagulant. Consult was also placed to metal hanging supervisor secondary to critically ill patient, at this time patient awaiting bed placement on stepdown unit. Called to update patient's son, Yanick, I spoke with him and updated him on mother's critical condition. 08/18: Patient remains in the intensive care unit. She's been on amiodarone and heparin for A. fib with RVR, she is currently on norepinephrine and also receiving magnesium replacement. Patient has black stool in her ostomy and heparin will be discontinued. Abdomen is firm. Consult is in place with general surgery and she has been cleared to start diet. Patient is seen and followed by multiple consultants including oncology, cardiology, nephrology and metal hanging supervisor. Echocardiogram reveals EF of 65-70%, aneurysmal intra-atrial septum, mild tricuspid regurgitation, no aortic stenosis or regurgitation. Mild mitral ossification. Mild pulmonary hypertension, RVSP 37.19.. Pulmonary perfusion study showed small perfusion defects correspond to low probability for pulmonary embolism. 08/19: She remains in the intensive care unit and on norepinephrine. She has been afebrile, heart rate 68, blood pressure 106/41 and pulse ox 93% on room air. Hemoglobin this morning is 6.7 and 1 unit of packed RBCs has been ordered. Patient has liquid dark brown stool in her ostomy bag. Other blood work reveals BUN of 49 creatinine 3.56 which is improving. Blood sugars are running between 67 and 150. We'll discontinue scheduled NovoLog as patient is now off drips containing D5W. Bicarbonate drip discontinued. Patient remains confused. Urine culture is showing group D enterococcus and gram-negative bacilli. Blood culture no growth at 48 hours 2 specimens. 08/20: Patient is seen today in the emergency center. She is off vasopressors and has been downgraded to the cardiac stepdown unit. Patient is more oriented today. She denies having any shortness of breath or cough. Output from ostomy is brown liquid, no blood noted. Patient denies abdominal pain. She is still not eating very much but no nausea or vomiting. Patient received 1 unit of packed RBCs yesterday and hemoglobin is 7.9. WBC 14.3, platelet count 177. BUN 44 and creatinine 3.47. Blood sugars are running between 82 and 150s. Urine culture finalized with Enterococcus faecium and E. coli. Patient has been resumed on eliquis. 08/21: Patient remains in the intensive care unit waiting for a bed on the cardiac stepdown unit. She's been afebrile, heart rate 60, blood pressure 108/79, pulse ox 92% on room air. Repeat blood work reveals WBC 11.3, hemoglobin 8.9, platelet count 188. Sodium 143, potassium 3.6, chloride 110, CO2 23, BUN 39 creatinine 3.27. Alkaline phosphatase 151. Blood sugars are running between 70 to and 89. Patient is seen today sitting up in recliner in the intensive care unit. She has been started on 3 L nasal cannula. We will start Lasix 20 mg IV daily for 2 days. Repeat chest x-ray reveals mild cardiomegaly and chronic. She will changes with left basilar acute infiltrate and/or atelectasis redemonstrated. No significant change. New small to tiny right pleural effusion. Very decreased IV fluids to 40 mL per hour Nephrology has added Aranesp, potassium replaced. 08/22: Patient is seen today on the cardiac stepdown unit. Patient continues to have confusion and pulled off colostomy bag today. This has been replaced by nursing. She has decreased edema to the lower extremities. Nephrology has discontinued IV Lasix, sodium bicarb added. Repeat chest x-ray reveals right subclavian CVC tip malpositioned. Continue small effusions and adjacent atele ctasis and/or consolidation. Evidence of prior granulomatosis disease. Surgery and INGOT CAR OPERATOR of signed off her case. Discharge planning is difficult as patient is out of senior care days and does not qualify for Medicaid. Patient truly needs long-term placement. Social work is following. Anticipate she will be ready for discharge next week 08/23: Patient was seen today on 3 . Patient states that she is feeling fine today. She is able to answer questions appropriately. We are continuing to wait on placement options. At this time GI and has signed off on her case stating that she can have a D&C an outpatient basis. Review Of Systems: Constitutional: No documented fever, no chills, no night sweats. No weight change. Noted weakness, noted fatigue. No daytime sleepiness. EENT: No headache. No blurred vision or double vision, no loss of vision. No loss of Hearing, no ringing in the ears, no dizziness. No nasal drainage or congestion. No epistaxis. No sore throat. Lungs: No shortness of breath, cough, no sputum production. No wheezing. Cardiovascular: No chest pain, no lower extremity edema. No palpitations. No paroxysmal nocturnal dyspnea. No orthopnea. No lightheadedness or dizziness. No syncopal episodes. Abdominal: No abdominal pain. No nausea, vomiting. No diarrhea. No constipation. No bloody or tarry stools. Noted loss of appetite. Genitourinary: No dysuria, increased frequency, urgency. No urinary retention. Vaginal bleeding-resolved. Musculoskeletal: No myalgias. No muscle weakness, no gait dysfunction, no fr equent falls. No back pain. No neck pain. Integumentary: No wounds, no lesions. No rash or pruritus. No unusual bruising. No change in hair or nails. Neurologic: No aphasia. No facial droop. Noted change in mentation. No head injury. No headache. No paralysis. No paresthesia. Psychiatric: No depression. No anxiety. No mood swings. Endocrine: No abnormal blood sugars. No weight change. No excessive sweating or thirst. No cold intolerance. Physical exam: Gen: This is an elderly frail appearing 80-year-old female, resting in recliner in no acute distress. HEENT: Head is atraumatic, normocephalic. Pupils equal, round. Sclerae is anicteric. Patient is edentulous. NECK: Supple. No JVD. No lymphadenopathy. No thyromegaly. LUNGS: Decreased breath some bilateral rhonchi and mild expiratory wheezes. HEART: Irregular rate and rhythm. Monitor atrial fibrillation. ABDOMEN: Abdomen firm, no rebound or rigidity. Ostomy on the right side with brown liquid stool. Beckett catheter draining nicolette urine EXTREMITIES: Noted pedal edema. No calf tenderness. NEUROLOGICAL: Patient is awake, alert and oriented to person. Assessment and Plan of Care: Metabolic encephalopathy, Likely multifactorial resulting from current critical state with severe metabolic acidosis, severe sepsis, PETE, and following conditions listed below. Severe sepsis with septic shock requiring vasopressors of unclear etiology possibly urinary tract infection versus other source such as abdominal Continue care in the CSD unit, metal hanging supervisor consult appreciated. continue Zosyn, vasopressor support has been discontinued Acute GI bleed with reports of coffee-ground emesis Acute on chronic anemia slightly below baseline hemoglobin of 9, acute blood loss anemia Suspected INGOT CAR OPERATOR malignancy with vaginal bleeding, resolved, unstable for surgical intervention at this time Continue Protonix 40 mg IV twice daily, general surgery consult, diet advanced to regular. Continue to monitor hemoglobin. Heparin drip discontinued. Patient status post transfusion 1 unit of packed RBCs. Acute DVT of left lower extremity Acute hypoxic respiratory failure, recent admission for Covid 19 pneumonitis from 07/29/21 through 08/04/21 Pulmonary embolus ruled out. Eliquis 2.5 mg twice daily. Acute kidney injury on chronic kidney disease stage III Severe Metabolic acidosis Lactic acidosis Enterococcus faecium and E. coli UTI -Consult nephrology appreciated -Insert Beckett catheter for close monitoring of I's and O's. -Continue Zosyn -Caution with nephrotoxic medications. -Sodium bicarb 650 mg twice daily Atrial fibrillation with RVR, paroxysmal atrial fibrillation Elevated troponin, flat, likely secondary to RVR Chronic diastolic heart failure with previously known EF of 55-60% Off Cardizem drip, cardiology consult appreciated, continue Lopressor 25 mg twice daily, eliquis 2.5 mg twice daily. Diabetes mellitus type 2 insulin requiring, uncontrolled with hyperglycemia. Continue NovoLog scale, add NovoLog 5 units with meals Incidental finding on imaging -CT reported new complex 6 x 4 cm cyst on right ovary which is reported being new compared to previous exam -Previous surgical report from 06/20/21 stated findings of a 3.5 cm lesion on right ovary concerning for potential ovarian cancer Oncology consult appreciated Hypertension. Patient is off anti-hypertensive medications. Hyperlipidemia CODE STATUS: Full code DVT prophylaxis: SCDs and FAHEEM hose DISCHARGE PLAN Subacute rehab next week, awaiting Medicaid application. Impression and plan of care have been directed as dictated by the signing physician. Doris Casillas nurse practitioner acting as scribe for signing physician. Objective - Vital Signs Vital signs: Vital Signs Temp 97.2 F L 08/23/21 08:00 Pulse 66 08/23/21 08:00 Resp 18 08/23/21 08:00 BP 107/61 08/23/21 08:00 Pulse Ox 99 08/23/21 08:00 Intake & Output 08/22/21 08/23/21 08/23/21 18:59 06:59 18:59 Intake Total 476 240 Output Total 50 200 Balance 426 40 Intake: Oral 476 240 Output: Stool 50 Urine/Stool Mix 200 Other: Voiding Method Diaper Diaper # Voids 2 # Bowel Movements 350 1 - Labs CBC & Chem 7: 08/22/21 05:46 08/23/21 08:03 Labs: Abnormal Lab Results - Last 24 Hours (Table) 08/17/21 08/22/21 08/22/21 Range/Units 14:23 11:23 16:36 Potassium (3.5-5.1) mmol/L Chloride (98-107) mmol/L Carbon Dioxide (22-30) mmol/L BUN (7-17) mg/dL Creatinine (0.52-1.04) mg/dL POC Glucose (mg/dL) 124 H 204 H (75-99) mg/dL Calcium (8.4-10.2) mg/dL Erythropoietin 38.33 H (2.00-30.00) mIU/mL 08/22/21 08/23/21 08/23/21 Range/Units 19:59 06:07 08:03 Potassium 3.4 L (3.5-5.1) mmol/L Chloride 110 H (98-107) mmol/L Carbon Dioxide 20 L (22-30) mmol/L BUN 33 H (7-17) mg/dL Creatinine 2.94 H (0.52-1.04) mg/dL POC Glucose (mg/dL) 195 H 101 H (75-99) mg/dL Calcium 7.5 L (8.4-10.2) mg/dL Erythropoietin (2.00-30.00) mIU/mL Microbiology - Last 24 Hours (Table) 08/17/21 01:25 Blood Culture - Final Blood No Growth after 144 hours 08/16/21 01:41 Blood Culture - Final Blood No Growth after 144 hours
[2021-08-23 12:01] LABS: Glucose,Whole Blood 107 mg/dL (75-99)
[2021-08-23] MEDS: POTASSIUM CHLORIDE ER 20 MEQ TAB.ER PO SCH ×2 (12:50→17:26)
--- NOTE | 2021-08-23 14:15 | P.PN ---
Subjective Progress Note Date: 08/23/21 Principal diagnosis: Atrial fibrillation. On 08/18/2000 patient seen in follow-up in the intensive care unit, she is currently awake and alert, in no acute distress, breathing comfortably, she is on 2 L of oxygen pulse ox is 97-98%, she is answering questions improperly, she denies any acute distress, she remains in atrial fibrillation with a rate of 117 BPM, she is currently on norepinephrine drip. 0.05 mics per kilo per minute, D5W with 3 A of bicarbonate at 100 ML per hour, amiodarone drip is at 0.5 mg/h. Patient is supposed to be restarted on heparin infusion as well after surgical clearance. Her VQ scan showed low probability of PE, patient was found to have left lower extremity DVT. Lung sounds are clear, diminished at the bases, no cough, no congestion, no complaints of chest pain, she remains on combination of antibiotics with Levaquin and Zosyn. Her urine and blood cultures have been negative. CT chest abdomen and pelvis showed mild atelectasis and scarring in the right lung base, no pleural effusion, no pericardial effusion no aneurysm, no hilar masses. There was no evidence of bowel obstruction. No mesenteric edema, no ascites or free air. 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 Echocardiogram has been reviewed showing preserved LV function with EF of 65-70%, mildly enlarged right ventricle, no aortic stenosis or regurgitation, mild tricuspid regurg, mild pulmonary hypertension with right- sided pressure of 37 mmHg. Patient is still on fairly high amount of vasopressors. Beckett catheter is in place, and patient is producing urine in the order of 30-40 mL per hour, her right-sided ileostomy is producing normal amount of greenish liquid stool. Colostomy is not bringing out any output. His labs have been reviewed, her white blood cell count is slightly improved and is currently at 21.5, hemoglobin is 7.7, sodium is 137, potassium is 4.8, chloride is 110, CO2 is 11, BUN 62, creatinine is 4.25. Renal profile is slightly improved compared to last couple of days. Nephrology services are following. Patient does have a recent history of "with 19 infection, her LDH from 08/17/2020 was 1002, and CRP it has not been checked, pro-calcitonin level is 1.5, and urinalysis showed evidence of acute urinary tract infection. Progress note dated 08/19/2021. The patient is again seen in the intensive care unit, room 264. The patient's currently on room air. She's getting dextrose, with 3 ampules of sodium bicarbonate at 100 mL an hour. She is on norepinephrine at 6 mcg/m. She is also getting saline at 75 mL an hour. Hemoglobin is 6.7. We've ordered 1 unit of packed red blood cells. We'll DC the bicarbonate drip. We'll ask for a cortisol level and a TSH, which might possibly explain her ongoing hypotension. Her urine sampling is showing group D enterococcus, and gram-negative bacilli. She remains on Zosyn and Levaquin. I was called by Dr. Downing, who did a pelvic examination on the patient. When she removed her gloved hand from the vault, it was full of blood, and the patient is to have a possible gynecologic malignancy. The patient should eventually have a D&C, and hysteroscopy, but is currently unstable for those procedures. White count is 16.5, hemoglobin 6.7, hematocrit 21.7, and platelet count 199,000. Sodium, potassium, chloride, CO2, anion gap, all normal. BUN is 49 with a creatinine of 3.56. No chest x-ray was done. Progress note dated 08/22/2021. The patient is seen today in room 353. The patient is been in the hospital now for 5 days. She was initially in the intensive care unit, for atrial fibrillation with RVR. At that time, she also had evidence of hypotension. Her urine was positive for enterococcus, group D, and gram-negative bacilli. The patient was evaluated by one of the [employer] doctors, and it was noted that she had blood in her vaginal vault. The physician was concerned about a gynecologic malignancy. She was too unstable at that time to have any sort of procedure. Currently, she is on 2 L nasal cannula. Looks very comfortable. She's getting saline at 20 mL an hour. Laboratory data includes a white count 10.9, hemoglobin 9.1, hematocrit 29.9, and a normal platelet count. Sodium 140, potassium 3.8, chlorides 112, CO2 20, anion gap 8, BUN 36, with a creatinine of 3.26. Chest x-ray shows bilateral small effusions and mild bibasilar atelectasis. Progress note dated 08/23/2021. The patient is again seen in room 353. Currently, she is on room air. She's getting saline at 20 mL an hour. The patient looks like she is doing relatively well. The patient is been the hospital now for 6 days. His initiated in the intensive care unit. She came with atrial fibrillation and RVR, as well as hypotension. Her urine was positive for group D enterococcus, and gram-negative bacilli. She was also thought to have a possible gynecologic malignancy, given the fact that the examination of her vaginal vault revealed blood. Laboratory data today includes a sodium 138, potassium 3.4, chlorides 110, CO2 20, anion gap 8, BUN 33, and creatinine 2.94. Glucose was 86. Calcium 7.5. Objective - Vital Signs Vital signs: Vital Signs Temp 97.2 F L 08/23/21 08:00 Pulse 66 08/23/21 08:00 Resp 18 08/23/21 08:00 BP 107/61 08/23/21 08:00 Pulse Ox 99 08/23/21 08:00 Intake & Output 08/22/21 08/23/21 08/23/21 18:59 06:59 18:59 Intake Total 476 240 Output Total 50 200 Balance 426 40 Intake: Oral 476 240 Output: Stool 50 Urine/Stool Mix 200 Other: Voiding Method Diaper Diaper # Voids 2 # Bowel Movements 350 1 - Exam No acute distress, oriented 3. Room air saturations 99%. HEENT examination is grossly unremarkable. Mucous membranes are dry. Neck supple. Full range of motion. No adenopathy thyromegaly or neck vein distention. Cardiovascular examination reveals an irregular rhythm and rate. S1-S2 normal. No S3 or S4. No discernible murmur noted. Heart rate is 66 bpm. Lungs reveal clear breath sounds. Breath sounds are equal bilaterally. No adventitious lung sounds including wheezes rhonchi or crackles. Abdomen soft bowel sounds are heard. No masses or tenderness. Extremities are intact. No cyanosis clubbing or edema. Skin is without rash or lesion. Neurologic examination is brief but nonfocal. - Labs CBC & Chem 7: 08/22/21 05:46 08/23/21 08:03 Labs: Abnormal Lab Results - Last 24 Hours (Table) 08/17/21 08/22/21 08/22/21 Range/Units 14:23 16:36 19:59 Potassium (3.5-5.1) mmol/L Chloride (98-107) mmol/L Carbon Dioxide (22-30) mmol/L BUN (7-17) mg/dL Creatinine (0.52-1.04) mg/dL POC Glucose (mg/dL) 204 H 195 H (75-99) mg/dL Calcium (8.4-10.2) mg/dL Erythropoietin 38.33 H (2.00-30.00) mIU/mL 08/23/21 08/23/21 08/23/21 Range/Units 06:07 08:03 11:54 Potassium 3.4 L (3.5-5.1) mmol/L Chloride 110 H (98-107) mmol/L Carbon Dioxide 20 L (22-30) mmol/L BUN 33 H (7-17) mg/dL Creatinine 2.94 H (0.52-1.04) mg/dL POC Glucose (mg/dL) 101 H 107 H (75-99) mg/dL Calcium 7.5 L (8.4-10.2) mg/dL Erythropoietin (2.00-30.00) mIU/mL Microbiology - Last 24 Hours (Table) 08/17/21 01:25 Blood Culture - Final Blood No Growth after 144 hours 08/16/21 01:41 Blood Culture - Final Blood No Growth after 144 hours Assessment and Plan Assessment: Mental status changes, likely related to septic encephalopathy. Acute kidney injury, on top of stage III chronic kidney disease. Anion gap metabolic acidosis. Acute left lower extremity DVT. New-onset atrial fibrillation with RVR. Urinary tract infection, secondary to Escherichia coli, and group D enterococcus. Persistent hypotension, secondary to sepsis. Recent coronavirus infection. Possible gynecologic malignancy. History of CHF with preserved LV function. History of type 2 diabetes mellitus. History of hyperlipidemia. History of hypertension. Osteoarthritis. Chronic neuropathy. COPD. Chronic anemia. Plan: Plan dated 08/19/2021. The patient remains on norepinephrine at 6 mcg/m. We will check a cortisol level and a TSH, to rule out adrenal insufficiency, and hypothyroidism. In addition, we'll give the patient 1 unit of packed red blood cells. The patient's IV will be increased to 75 mL an hour. We will DC the bicarbonate drip. The patient remains on Zosyn and Levaquin, for a urinary tract infection. Additional recommendations and suggestions are forthcoming. Prognosis is guarded. We will continue to follow the patient and make recommendations where appropriate. Plan dated 08/22/2021. The patient remains on Zosyn for her urinary tract infection. She was placed back on Eliquis. She's had no further bleeding. She will need to see the gynecologic physician post discharge, for further evaluation. From the pulmonar y standpoint, the patient's doing well. She denies any shortness of breath, coughing, wheezing, or phlegm production. The patient's labs, x-rays, and medications are reviewed. Everything does seem appropriate. We will continue to follow. Prognosis is guarded. Plan dated 08/23/2021. The patient remains on Zosyn for her urinary tract infection. She was also placed back on Eliquis. The patient has had no further bleeding. The patient feels well. She is on room air. Saturations are nearly 100%. She is receiving saline at 20 mL an hour. We will continue to follow and make recommendations where appropriate. Prognosis is guarded. She denies all respiratory issues including shortness of breath, cough, wheezing, phlegm production, and chest congestion. Time with Patient: Less than 30
[2021-08-23 16:46] LABS: Glucose,Whole Blood 138 mg/dL (75-99)
--- NOTE | 2021-08-23 17:50 | PN ---
PROGRESS NOTE DATE OF SERVICE: 08/23/2021 REASON FOR FOLLOWUP: UTI. INTERVAL HISTORY: The patient is afebrile. The patient is currently breathing comfortably on room air. Denies having any chest pain or shortness of breath or cough. discomfort. No nausea, vomiting or diarrhea. PHYSICAL EXAMINATION: Blood pressure 130/84 with a pulse of 64, temperature 98.5. She is 94% on room air. General description is an elderly female lying in bed in no distress. Respiratory system: Unlabored breathing, decreased intensity of breath sounds. No wheeze. Heart S1, S2. Regular rate and rhythm. Abdomen soft, no tenderness. LABS: Creatinine is down to 2.94. DIAGNOSTIC IMPRESSION AND PLAN: Patient with Escherichia coli urinary tract infection in this patient currently covered with Zosyn to cover for both pathogens. To continue for now and transition to oral antibiotic on discharge. Monitor clinical course closely. Continue supportive care. MMODL / IJN: [id number] /
[2021-08-23 19:39] LABS: Glucose,Whole Blood 148 mg/dL (75-99)
[2021-08-23] MEDS: PRAVASTATIN SODIUM 40 MG TAB PO SCH (20:28)
[2021-08-24] MEDS: INSULIN ASPART (NovoLOG) 100 UNIT/ML VIAL SQ SCH ×4 (06:20→21:03)
[2021-08-24 06:53] LABS: Glucose,Whole Blood 95 mg/dL (75-99)
[2021-08-24 08:39] LABS: Calcium 7.5 mg/dL (8.4-10.2); Magnesium 1.7 mg/dL (1.6-2.3); Potassium 3.4 mmol/L (3.5-5.1)
[2021-08-24] MEDS ORDERED: POTASSIUM CHLORIDE ER 20 MEQ TAB.ER PO STA (09:11)
--- NOTE | 2021-08-24 09:12 | P.PN ---
Subjective Patient is seen in follow-up for acute kidney injury on chronic kidney disease. Renal function improving. On room air. Oral intake fair. Denies chest pain or shortness of breath. Has been voiding. Vital signs are stable. HEENT: Head exam is unremarkable. LUNGS:Breath sounds decreased. HEART: Regular rate and rhythm. ABDOMEN: Soft, no distention. EXTREMITITES: 1+ edema left lower extremity. No edema in the right lower extremity. Objective - Vital Signs Vital signs: Vital Signs Temp 98.1 F 08/24/21 03:44 Pulse 66 08/24/21 03:44 Resp 16 08/24/21 03:44 BP 97/60 08/24/21 03:44 Pulse Ox 98 08/24/21 03:44 Intake & Output 08/23/21 08/24/21 08/24/21 18:59 06:59 18:59 Intake Total 354 240 Output Total 200 Balance 354 40 Weight 81 kg Intake: Oral 354 240 Output: Urine/Stool Mix 200 Other: Voiding Method Diaper Diaper # Voids 1 # Bowel Movements 1 - Labs CBC & Chem 7: 08/22/21 05:46 08/24/21 07:17 Labs: Abnormal Lab Results - Last 24 Hours (Table) 08/23/21 08/23/21 08/23/21 Range/Units 11:54 16:34 19:38 Potassium (3.5-5.1) mmol/L Chloride (98-107) mmol/L Carbon Dioxide (22-30) mmol/L BUN (7-17) mg/dL Creatinine (0.52-1.04) mg/dL POC Glucose (mg/dL) 107 H 138 H 148 H (75-99) mg/dL Calcium (8.4-10.2) mg/dL 08/24/21 Range/Units 07:17 Potassium 3.4 L (3.5-5.1) mmol/L Chloride 111 H (98-107) mmol/L Carbon Dioxide 21 L (22-30) mmol/L BUN 30 H (7-17) mg/dL Creatinine 2.73 H (0.52-1.04) mg/dL POC Glucose (mg/dL) (75-99) mg/dL Calcium 7.5 L (8.4-10.2) mg/dL Microbiology - Last 24 Hours (Table) 08/17/21 01:25 Blood Culture - Final Blood No Growth after 144 hours Assessment and Plan Plan: Assessment: 1. Acute kidney injury mostly prerenal secondary to hypovolemia and hemodynamic instability. Creatinine 4.84 on admission - 2.73 today. Non-oliguric. No hydronephrosis noted on CAT scan. 2. Chronic kidney disease stage IIIa with baseline creatinine in the range of 1.3-1.5 secondary to diabetic kidney disease. 3. Left lower extremity DVT. On anticoagulation. 4. A. fib with RVR maintained on metoprolol. 5. Metabolic acidosis secondary to acute kidney injury. s/p bicarbonate drip. On oral bicarbonate. Better. 6. Diabetes mellitus. 7. Hypomagnesemia from poor intake. Replaced. 8. Septic shock secondary to UTI. Urine culture positive for enterococcus. 9. Acute blood loss anemia. Status post blood transfusion 08/19/2021. Improved. No active bleeding. On Aranesp. 10. Hypokalemia from poor intake. Plan: Encourage oral intake. Avoid nephrotoxins. Preserved ejection fraction. Continue to monitor renal function and urine output. Replace potassium. Add oral magnesium oxide.
[2021-08-24] MEDS: SODIUM BICARBONATE TAB 650 MG TAB PO SCH ×2 (10:05→21:03)
[2021-08-24] MEDS: PANTOPRAZOLE 40 MG/10 ML VIAL IVP SCH ×2 (10:05→21:03)
[2021-08-24] MEDS: FAMOTIDINE 20 MG/2 ML VIAL IV SCH (10:05)
[2021-08-24] MEDS: PIPERACILLIN-TAZOBACTAM 3.375 GM in SODIUM CHLORIDE 0.9% 100 ML IVPB SCH ×3 (10:05→22:29)
[2021-08-24] MEDS: APIXABAN 2.5 MG TABLET PO SCH ×2 (10:05→21:02)
[2021-08-24] MEDS: METOPROLOL TARTRATE 25 MG TAB PO SCH ×2 (10:05→21:03)
[2021-08-24] MEDS: CYANOCOBALAMIN 500 MCG TAB PO SCH (10:06)
[2021-08-24] MEDS: FOLIC ACID 1 MG TAB PO SCH (10:06)
[2021-08-24] MEDS: FLUoxetine HCL 20 MG CAP PO SCH (10:06)
[2021-08-24] MEDS: AMMONIUM LACTATE 12% LOTION 225 GM BTL TOPICAL SCH ×2 (10:07→21:06)
[2021-08-24 11:44] LABS: Glucose,Whole Blood 176 mg/dL (75-99)
--- NOTE | 2021-08-24 12:18 | P.PN ---
Subjective Progress Note Date: 08/24/21 Principal diagnosis: Atrial fibrillation. On 08/18/2000 patient seen in follow-up in the intensive care unit, she is currently awake and alert, in no acute distress, breathing comfortably, she is on 2 L of oxygen pulse ox is 97-98%, she is answering questions improperly, she denies any acute distress, she remains in atrial fibrillation with a rate of 117 BPM, she is currently on norepinephrine drip. 0.05 mics per kilo per minute, D5W with 3 A of bicarbonate at 100 ML per hour, amiodarone drip is at 0.5 mg/h. Patient is supposed to be restarted on heparin infusion as well after surgical clearance. Her VQ scan showed low probability of PE, patient was found to have left lower extremity DVT. Lung sounds are clear, diminished at the bases, no cough, no congestion, no complaints of chest pain, she remains on combination of antibiotics with Levaquin and Zosyn. Her urine and blood cultures have been negative. CT chest abdomen and pelvis showed mild atelectasis and scarring in the right lung base, no pleural effusion, no pericardial effusion no aneurysm, no hilar masses. There was no evidence of bowel obstruction. No mesenteric edema, no ascites or free air. 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 Echocardiogram has been reviewed showing preserved LV function with EF of 65-70%, mildly enlarged right ventricle, no aortic stenosis or regurgitation, mild tricuspid regurg, mild pulmonary hypertension with right- sided pressure of 37 mmHg. Patient is still on fairly high amount of vasopressors. Beckett catheter is in place, and patient is producing urine in the order of 30-40 mL per hour, her right-sided ileostomy is producing normal amount of greenish liquid stool. Colostomy is not bringing out any output. His labs have been reviewed, her white blood cell count is slightly improved and is currently at 21.5, hemoglobin is 7.7, sodium is 137, potassium is 4.8, chloride is 110, CO2 is 11, BUN 62, creatinine is 4.25. Renal profile is slightly improved compared to last couple of days. Nephrology services are following. Patient does have a recent history of "with 19 infection, her LDH from 08/17/2020 was 1002, and CRP it has not been checked, pro-calcitonin level is 1.5, and urinalysis showed evidence of acute urinary tract infection. Progress note dated 08/19/2021. The patient is again seen in the intensive care unit, room 264. The patient's currently on room air. She's getting dextrose, with 3 ampules of sodium bicarbonate at 100 mL an hour. She is on norepinephrine at 6 mcg/m. She is also getting saline at 75 mL an hour. Hemoglobin is 6.7. We've ordered 1 unit of packed red blood cells. We'll DC the bicarbonate drip. We'll ask for a cortisol level and a TSH, which might possibly explain her ongoing hypotension. Her urine sampling is showing group D enterococcus, and gram-negative bacilli. She remains on Zosyn and Levaquin. I was called by Dr. Downing, who did a pelvic examination on the patient. When she removed her gloved hand from the vault, it was full of blood, and the patient is to have a possible gynecologic malignancy. The patient should eventually have a D&C, and hysteroscopy, but is currently unstable for those procedures. White count is 16.5, hemoglobin 6.7, hematocrit 21.7, and platelet count 199,000. Sodium, potassium, chloride, CO2, anion gap, all normal. BUN is 49 with a creatinine of 3.56. No chest x-ray was done. Progress note dated 08/22/2021. The patient is seen today in room 353. The patient is been in the hospital now for 5 days. She was initially in the intensive care unit, for atrial fibrillation with RVR. At that time, she also had evidence of hypotension. Her urine was positive for enterococcus, group D, and gram-negative bacilli. The patient was evaluated by one of the [facility] doctors, and it was noted that she had blood in her vaginal vault. The physician was concerned about a gynecologic malignancy. She was too unstable at that time to have any sort of procedure. Currently, she is on 2 L nasal cannula. Looks very comfortable. She's getting saline at 20 mL an hour. Laboratory data includes a white count 10.9, hemoglobin 9.1, hematocrit 29.9, and a normal platelet count. Sodium 140, potassium 3.8, chlorides 112, CO2 20, anion gap 8, BUN 36, with a creatinine of 3.26. Chest x-ray shows bilateral small effusions and mild bibasilar atelectasis. Progress note dated 08/23/2021. The patient is again seen in room 353. Currently, she is on room air. She's getting saline at 20 mL an hour. The patient looks like she is doing relatively well. The patient is been the hospital now for 6 days. His initiated in the intensive care unit. She came with atrial fibrillation and RVR, as well as hypotension. Her urine was positive for group D enterococcus, and gram-negative bacilli. She was also thought to have a possible gynecologic malignancy, given the fact that the examination of her vaginal vault revealed blood. Laboratory data today includes a sodium 138, potassium 3.4, chlorides 110, CO2 20, anion gap 8, BUN 33, and creatinine 2.94. Glucose was 86. Calcium 7.5. Progress note dated 08/24/2021. The patient is again seen in room 353. She is on room air. She's not receiving any IV fluids. The patient has been here in the hospital now for 7 days. No further vaginal bleeding. Patient denies any shortness of breath, cough, wheezing, or phlegm production. She also denies any cardiac symptoms such as chest pain, chest pressure, palpitations, etc. Current lab data includes a sodium 140, potassium 3.4, chlorides 111, CO2 21, anion gap 8, E1 30, creatinine 2.73. Calcium is 7.5. Objective - Vital Signs Vital signs: Vital Signs Temp 98.1 F 08/24/21 03:44 Pulse 66 08/24/21 03:44 Resp 16 08/24/21 03:44 BP 97/60 08/24/21 03:44 Pulse Ox 98 08/24/21 03:44 Intake & Output 08/23/21 08/24/21 08/24/21 18:59 06:59 18:59 Intake Total 354 240 120 Output Total 200 Balance 354 40 120 Weight 81 kg Intake: Oral 354 240 120 Output: Urine/Stool Mix 200 Other: Voiding Method Diaper Diaper # Voids 1 # Bowel Movements 1 - Exam No acute distress, oriented 3. Room air saturations 98%. HEENT examination is grossly unremarkable. Mucous membranes are dry. Neck supple. Full range of motion. No adenopathy thyromegaly or neck vein di stention. Cardiovascular examination reveals an irregular rhythm and rate. S1-S2 normal. No S3 or S4. No discernible murmur noted. Heart rate is 64 bpm. Lungs reveal clear breath sounds. Breath sounds are equal bilaterally. No adventitious lung sounds including wheezes rhonchi or crackles. Abdomen soft bowel sounds are heard. No masses or tenderness. Extremities are intact. No cyanosis clubbing or edema. Skin is without rash or lesion. Neurologic examination is brief but nonfocal. - Labs CBC & Chem 7: 08/22/21 05:46 08/24/21 07:17 Labs: Abnormal Lab Results - Last 24 Hours (Table) 08/23/21 08/23/21 08/24/21 Range/Units 16:34 19:38 07:17 Potassium 3.4 L (3.5-5.1) mmol/L Chloride 111 H (98-107) mmol/L Carbon Dioxide 21 L (22-30) mmol/L BUN 30 H (7-17) mg/dL Creatinine 2.73 H (0.52-1.04) mg/dL POC Glucose (mg/dL) 138 H 148 H (75-99) mg/dL Calcium 7.5 L (8.4-10.2) mg/dL 08/24/21 Range/Units 11:43 Potassium (3.5-5.1) mmol/L Chloride (98-107) mmol/L Carbon Dioxide (22-30) mmol/L BUN (7-17) mg/dL Creatinine (0.52-1.04) mg/dL POC Glucose (mg/dL) 176 H (75-99) mg/dL Calcium (8.4-10.2) mg/dL Assessment and Plan Assessment: Mental status changes, likely related to septic encephalopathy. Acute kidney injury, on top of stage III chronic kidney disease. Anion gap metabolic acidosis. Acute left lower extremity DVT. New-onset atrial fibrillation with RVR. Urinary tract infection, secondary to Escherichia coli, and group D enteroco ccus. Persistent hypotension, secondary to sepsis, resolved. Recent coronavirus infection. Possible gynecologic malignancy. History of CHF with preserved LV function. History of type 2 diabetes mellitus. History of hyperlipidemia. History of hypertension. Osteoarthritis. Chronic neuropathy. COPD. Chronic anemia. Plan: Plan dated 08/19/2021. The patient remains on norepinephrine at 6 mcg/m. We will check a cortisol level and a TSH, to rule out adrenal insufficiency, and hypothyroidism. In addition, we'll give the patient 1 unit of packed red blood cells. The patient 's IV will be increased to 75 mL an hour. We will DC the bicarbonate drip. The patient remains on Zosyn and Levaquin, for a urinary tract infection. Additional recommendations and suggestions are forthcoming. Prognosis is guarded. We will continue to follow the patient and make recommendations where appropriate. Plan dated 08/22/2021. The patient remains on Zosyn for her urinary tract infection. She was placed back on Eliquis. She's had no further bleeding. She will need to see the [facility] ecologic physician post discharge, for further evaluation. From the pulmonary standpoint, the patient's doing well. She denies any shortness of breath, coughing, wheezing, or phlegm production. The patient's labs, x-rays, and medications are reviewed. Everything does seem appropriate. We will continue to follow. Prognosis is guarded. Plan dated 08/23/2021. The patient remains on Zosyn for her urinary tract infection. She was also placed back on Eliquis. The patient has had no further bleeding. The patient feels well. She is on room air. Saturations are nearly 100%. She is receiving saline at 20 mL an hour. We will continue to follow and make recommendations where appropriate. Prognosis is guarded. She denies all respiratory issues including shortness of breath, cough, wheezing, phlegm production, and chest congestion. Plan dated 08/24/2021. The patient's doing well. She's not requiring any supplemental oxygen. Room air saturations are excellent. Her vital signs are stable including blood pressure. No further vaginal bleeding. The patient remains on Zosyn for her urinary tract infection. The patient will eventually need a workup, after discharge, for possible gynecologic malignancy. She was seen here in the hospital by Dr. Downing. Additional recommendations and suggestions are forthcoming. Gnosis is guarded. We will continue to follow and make recomme ndations where appropriate. Labs, medications, and x-rays are all reviewed. Time with Patient: Less than 30
--- NOTE | 2021-08-24 12:23 | P.PN ---
Subjective Progress Note Date: 08/24/21 HPI: Patient is a very pleasant 80-year-old female with a past medical history of CAD with previous MA, diastolic heart failure with previously known EF of 55-60%, severe pulmonary hypertension, atrial fibrillation on anticoagulation with Eliquis, hypertension, hyperlipidemia, CKD stage III, insulin-dependent diabetes mellitus, 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 Quiñonez, and recent admission from 07/29/21-08/04/21 for acute respiratory failure with hypoxia secondary to Covid 19 pneumonitis. Patient presented to the emergency department by EMS with a chief complaint of alteration in mental status, nausea and coffee ground emesis. Patient underwent full evaluation. She was found to be tachycardic 120s to 140s, to 20-24 breaths per minute, hypoxic requiring oxygen supplementation with placement on nonrebreather, and found to have a low-grade temp of 99.9F. EKG revealed atrial fibrillation with a rapid ventricular rate of 148 bpm. Labs revealed significant leukocytosis with WBC count 28.4, anemic with hemoglobin of 9.7, hyperkalemic with potassium 5.4, acidotic with chloride 107, CO2 8, anion gap 22, and plasma lactic acid of 5.0 acute kidney injury with BUN 60, creatinine 4.84, and GFR of 8 with baseline creatinine of 1.8-2.0. Troponins were elevated at 0.062 and 0.054. Pro-calcitonin also elevated at 1.50. Urinalysis positive for infection. Chest x-ray showing mild pulmonary fibrotic changes with no evidence of heart failure or acute cardiopulmonary process. CT chest, abdomen, and pelvis without contrast revealed no evidence of bowel obstruction with no free air however there was a reported new complex 6 x 4 cm cyst on right ovary which is reported being new compared to previous exam. Left lower extremity Dopplers were positive for DVT extending from the left popliteal vein to the femoral vein. Patient was started on heparin infusion for treatment of acute DVT, Cardizem infusion for atrial fibrillation with RVR, bicarb infusion for severe metabolic acidosis with a critical bicarb of 8. Given sepsis bolus of 3 L normal saline and started on IV antibiotics Zosyn and Levaquin. Consultations were placed general surgery for concerns of GI bleed, cardiology for elevated troponin and A. fib RVR, nephrology for acute renal failure and severe metabolic acidosis requiring bicarbonate infusion, and hematology secondary to development of DVT while on oral anticoagulant. Consult was also placed to magnetic tester secondary to critically ill patient, at this time patient awaiting bed placement on stepdown unit. Called to update patient's son, Yanick, I spoke with him and updated him on mother's critical condition. 08/18: Patient remains in the intensive care unit. She's been on amiodarone and heparin for A. fib with RVR, she is currently on norepinephrine and also receiving magnesium replacement. Patient has black stool in her ostomy and heparin will be discontinued. Abdomen is firm. Consult is in place with general surgery and she has been cleared to start diet. Patient is seen and followed by multiple consultants including oncology, cardiology, nephrology and magnetic tester. Echocardiogram reveals EF of 65-70%, aneurysmal intra-atrial septum, mild tricuspid regurgitation, no aortic stenosis or regurgitation. Mild mitral ossification. Mild pulmonary hypertension, RVSP 37.19.. Pulmonary perfusion study showed small perfusion defects correspond to low probability for pulmonary embolism. 08/19: She remains in the intensive care unit and on norepinephrine. She has been afebrile, heart rate 68, blood pressure 106/41 and pulse ox 93% on room air. Hemoglobin this morning is 6.7 and 1 unit of packed RBCs has been ordered. Patient has liquid dark brown stool in her ostomy bag. Other blood work reveals BUN of 49 creatinine 3.56 which is improving. Blood sugars are running between 67 and 150. We'll discontinue scheduled NovoLog as patient is now off drips containing D5W. Bicarbonate drip discontinued. Patient remains confused. Urine culture is showing group D enterococcus and gram-negative bacilli. Blood culture no growth at 48 hours 2 specimens. 08/20: Patient is seen today in the emergency center. She is off vasopressors and has been downgraded to the cardiac stepdown unit. Patient is more oriented today. She denies having any shortness of breath or cough. Output from ostomy is brown liquid, no blood noted. Patient denies abdominal pain. She is still not eating very much but no nausea or vomiting. Patient received 1 unit of packed RBCs yesterday and hemoglobin is 7.9. WBC 14.3, platelet count 177. BUN 44 and creatinine 3.47. Blood sugars are running between 82 and 150s. Urine culture finalized with Enterococcus faecium and E. coli. Patient has been resumed on eliquis. 08/21: Patient remains in the intensive care unit waiting for a bed on the cardiac stepdown unit. She's been afebrile, heart rate 60, blood pressure 108/79, pulse ox 92% on room air. Repeat blood work reveals WBC 11.3, hemoglobin 8.9, platelet count 188. Sodium 143, potassium 3.6, chloride 110, CO2 23, BUN 39 creatinine 3.27. Alkaline phosphatase 151. Blood sugars are running between 70 to and 89. Patient is seen today sitting up in recliner in the intensive care unit. She has been started on 3 L nasal cannula. We will start Lasix 20 mg IV daily for 2 days. Repeat chest x-ray reveals mild cardiomegaly and chronic. She will changes with left basilar acute infiltrate and/or atelectasis redemonstrated. No significant change. New small to tiny right pleural effusion. Very decreased IV fluids to 40 mL per hour Nephrology has added Aranesp, potassium replaced. 08/22: Patient is seen today on the cardiac stepdown unit. Patient continues to have confusion and pulled off colostomy bag today. This has been replaced by nursing. She has decreased edema to the lower extremities. Nephrology has discontinued IV Lasix, sodium bicarb added. Repeat chest x-ray reveals right subclavian CVC tip malpositioned. Continue small effusions and adjacent atele ctasis and/or consolidation. Evidence of prior granulomatosis disease. Surgery and RAISE DRILL OPERATOR of signed off her case. Discharge planning is difficult as patient is out of group home days and does not qualify for Medicaid. Patient truly needs long-term placement. Social work is following. Anticipate she will be ready for discharge next week 08/23: Patient was seen today on . Patient states that she is feeling fine today. She is able to answer questions appropriately. We are continuing to wait on placement options. At this time Intake Man has signed off on her case stating that she can have a D&C an outpatient basis. 08/24: She was seen today on [facility]. She is found sitting up in bed in no acute distress. Patient able to answer questions appropriately and voice no concerns. Still awaiting information on placement options with social work. Patient remains afebrile, respirations 16, heart rate 66, blood pressure 97/60 pulse ox 98% on room air Review Of Systems: Constitutional: No documented fever, no chills, no night sweats. No weight change. Noted weakness, noted fatigue. No daytime sleepiness. EENT: No headache. No blurred vision or double vision, no loss of vision. No loss of Hearing, no ringing in the ears, no dizziness. No nasal drainage or congestion. No epistaxis. No sore throat. Lungs: No shortness of breath, cough, no sputum production. No wheezing. Cardiovascular: No chest pain, no lower extremity edema. No palpitations. No paroxysmal nocturnal dyspnea. No orthopnea. No lightheadedness or dizziness. No syncopal episodes. Abdominal: No abdominal pain. No nausea, vomiting. No diarrhea. No constipation. No bloody or tarry stools. Noted loss of appetite. Genitourinary: No dysuria, increased frequency, urgency. No urinary retention. Vaginal bleeding-resolved. Musculoskeletal: No myalgias. No muscle weakness, no gait dysfunction, no frequent falls. No back pain. No neck pain. Integumentary: No wounds, no lesions. No rash or pruritus. No unusual bruising. No change in hair or nails. Neurologic: No aphasia. No facial droop. Noted change in mentation. No head injury. No headache. No paralysis. No paresthesia. Psychiatric: No depression. No anxiety. No mood swings. Endocrine: No abnormal blood sugars. No weight change. No excessive sweating or thirst. No cold intolerance. Physical exam: Gen: This is an elderly frail appearing 80-year-old female, resting in recliner in no acute distress. HEENT: Head is atraumatic, normocephalic. Pupils equal, round. Sclerae is anicteric. Patient is edentulous. NECK: Supple. No JVD. No lymphadenopathy. No thyromegaly. LUNGS: Decreased breath some bilateral rhonchi and mild expiratory wheezes. HEART: Irregular rate and rhythm. Monitor atrial fibrillation. ABDOMEN: Abdomen firm, no rebound or rigidity. Ostomy on the right side with brown liquid stool. Beckett catheter draining nicolette urine EXTREMITIES: Noted pedal edema. No calf tenderness. NEUROLOGICAL: Patient is awake, alert and oriented to person. Assessment and Plan of Care: Metabolic encephalopathy, Likely multifactorial resulting from current critical state with severe metabolic acidosis, severe sepsis, PETE, and following conditions listed below. Severe sepsis with septic shock requiring vasopressors of unclear etiology possibly urinary tract infection versus other source such as abdominal Continue care in the CSD unit, magnetic tester consult appreciated. continue Zosyn, vasopressor support has been discontinued Acute GI bleed with reports of coffee-ground emesis Acute on chronic anemia slightly below baseline hemoglobin of 9, acute blood loss anemia Suspected RAISE DRILL OPERATOR malignancy with vaginal bleeding, resolved, unstable for surgical intervention at this time Continue Protonix 40 mg IV twice daily, general surgery consult, diet advanced to regular. Continue to monitor hemoglobin. Heparin drip discontinued. Patient status post transfusion 1 unit of packed RBCs. Acute DVT of left lower extremity Acute hypoxic respiratory failure, recent admission for Covid 19 pneumonitis from 07/29/21 through 08/04/21 Pulmonary embolus ruled out. Eliquis 2.5 mg twice daily. Acute kidney injury on chronic kidney disease stage III Severe Metabolic acidosis Lactic acidosis Enterococcus faecium and E. coli UTI -Consult nephrology appreciated -Insert Beckett catheter for close monitoring of I's and O's. -Continue Zosyn -Caution with nephrotoxic medications. -Sodium bicarb 650 mg twice daily Atrial fibrillation with RVR, paroxysmal atrial fibrillation Elevated troponin, flat, likely secondary to RVR Chronic diastolic heart failure with previously known EF of 55-60% Off Cardizem drip, cardiology consult appreciated, continue Lopressor 25 mg twice daily, eliquis 2.5 mg twice daily. Diabetes mellitus type 2 insulin requiring, uncontrolled with hyperglycemia. Continue NovoLog scale, add NovoLog 5 units with meals Incidental finding on imaging -CT reported new complex 6 x 4 cm cyst on right ovary which is reported being new compared to previous exam -Previous surgical report from 06/20/21 stated findings of a 3.5 cm lesion on right ovary concerning for potential ovarian cancer Oncology consult appreciated Hypertension. Patient is off anti-hypertensive medications. Hyperlipidemia CODE STATUS: Full code DVT prophylaxis: SCDs and FAHEEM hose DISCHARGE PLAN Subacute rehab next week, awaiting Medicaid application. Impression and plan of care have been directed as dictated by the signing physician. Doris Casillas nurse practitioner acting as scribe for signing physician. Objective - Vital Signs Vital signs: Vital Signs Temp 98.1 F 08/24/21 03:44 Pulse 66 08/24/21 03:44 Resp 16 08/24/21 03:44 BP 97/60 08/24/21 03:44 Pulse Ox 98 08/24/21 03:44 Intake & Output 08/23/21 08/24/21 08/24/21 18:59 06:59 18:59 Intake Total 354 240 120 Output Total 200 Balance 354 40 120 Weight 81 kg Intake: Oral 354 240 120 Output: Urine/Stool Mix 200 Other: Voiding Method Diaper Diaper # Voids 1 # Bowel Movements 1 - Labs CBC & Chem 7: 08/22/21 05:46 08/24/21 07:17 Labs: Abnormal Lab Results - Last 24 Hours (Table) 08/23/21 08/23/21 08/24/21 Range/Units 16:34 19:38 07:17 Potassium 3.4 L (3.5-5.1) mmol/L Chloride 111 H (98-107) mmol/L Carbon Dioxide 21 L (22-30) mmol/L BUN 30 H (7-17) mg/dL Creatinine 2.73 H (0.52-1.04) mg/dL POC Glucose (mg/dL) 138 H 148 H (75-99) mg/dL Calcium 7.5 L (8.4-10.2) mg/dL 08/24/21 Range/Units 11:43 Potassium (3.5-5.1) mmol/L Chloride (98-107) mmol/L Carbon Dioxide (22-30) mmol/L BUN (7-17) mg/dL Creatinine (0.52-1.04) mg/dL POC Glucose (mg/dL) 176 H (75-99) mg/dL Calcium (8.4-10.2) mg/dL
[2021-08-24 16:38] LABS: Glucose,Whole Blood 220 mg/dL (75-99)
[2021-08-24] MEDS: MAGNESIUM OXIDE 400 MG TAB PO SCH (17:39)
--- NOTE | 2021-08-24 20:18 | PN ---
PROGRESS NOTE DATE OF SERVICE: 08/24/2021 REASON FOR FOLLOWUP: Urinary tract infection. INTERVAL HISTORY: Patient is afebrile. The patient is breathing comfortably. The patient denies having any chest pain, shortness of breath or cough. Currently on room air. No vomiting or diarrhea. PHYSICAL EXAMINATION: Blood pressure 110/66, pulse of 74, temperature 98.5. She is 99% on room air. General description is an elderly female lying in bed in no distress. Respiratory system: Unlabored breathing. Clear to auscultation anteriorly. Heart S1, S2. Regular rate and rhythm. Abdomen soft, no tenderness. LABS: BUN of 30, creatinine 2.73. DIAGNOSTIC IMPRESSION AND PLAN: Patient with an E coli Enterococcus faecium UTI in this patient seems to shown overall clinical improvement. We will be able to finish therapy with oral Augmentin and close outpatient followup. MMLLOYDL / IJN: [id number] /
[2021-08-24 20:24] LABS: Glucose,Whole Blood 142 mg/dL (75-99)
[2021-08-24] MEDS: PRAVASTATIN SODIUM 40 MG TAB PO SCH (21:03)
[2021-08-25] MEDS: INSULIN ASPART (NovoLOG) 100 UNIT/ML VIAL SQ SCH ×4 (06:10→21:20)
[2021-08-25 06:12] LABS: Glucose,Whole Blood 82 mg/dL (75-99)
[2021-08-25 08:47] LABS: Magnesium 1.6 mg/dL (1.6-2.3); Potassium 4.1 mmol/L (3.5-5.1)
[2021-08-25] MEDS: FLUoxetine HCL 20 MG CAP PO SCH (09:27)
[2021-08-25] MEDS: FAMOTIDINE 20 MG TAB PO SCH (09:27)
[2021-08-25] MEDS: APIXABAN 2.5 MG TABLET PO SCH (09:27)
[2021-08-25] MEDS: METOPROLOL TARTRATE 25 MG TAB PO SCH ×2 (09:27→21:20)
[2021-08-25] MEDS: SODIUM BICARBONATE TAB 650 MG TAB PO SCH ×2 (09:27→21:20)
[2021-08-25] MEDS: CYANOCOBALAMIN 500 MCG TAB PO SCH (09:27)
[2021-08-25] MEDS: MAGNESIUM OXIDE 400 MG TAB PO SCH (09:27)
[2021-08-25] MEDS: FOLIC ACID 1 MG TAB PO SCH (09:27)
[2021-08-25] MEDS: AMMONIUM LACTATE 12% LOTION 225 GM BTL TOPICAL SCH ×2 (09:28→21:21)
[2021-08-25] MEDS: PIPERACILLIN-TAZOBACTAM 3.375 GM in SODIUM CHLORIDE 0.9% 100 ML IVPB SCH ×2 (09:28→21:39)
[2021-08-25] MEDS: PANTOPRAZOLE 40 MG/10 ML VIAL IVP SCH ×2 (09:28→21:20)
[2021-08-25] MEDS: SODIUM CHLORIDE 0.9% 1,000 ML IV SCH (09:44)
--- NOTE | 2021-08-25 10:02 | P.PN ---
Subjective Progress Note Date: 08/25/21 This is a 80-year-old female patient who came into the emergency department with altered mental status. Apparently, the patient was hospitalized earlier and she was discharged from the hospital on 08/04/2021 after being treated for acute hypoxic respiratory failure secondary to COVID 19 related pneumonia and during the course of her evaluation or hospitalization, the patient had an acute kidney injury secondary to ATN and infection/sepsis secondary to underlying urine checked infection with multidrug resistant E. coli. Ultimately, the patient's condition was stabilized and she was discharged home with home care. She is known to have multiple medical problems including a previous history of a questionable pelvic mass, previous history of a right sided colectomy with diverting ileostomy, CHF, diabetes mellitus type 2, chronic stage IIIB kidney disease, chronic peripheral neuropathy, hyperlipidemia, chronic anemia and COPD. She is also known to have CHF along with history approximately atrial fibrillation. 08/25/2021, the patient is being seen for a follow-up. She is resting comfo rtably in bed and she is currently on room air oxygen. Pulse ox is in order of 99%. No sig abnormalities in labs available from today. She is communicating. Following simple commands. She is using incentive spirometer. Most recent blood work from today shows a BUN of 28 with a creatinine of 2.6 and noted the patient's acute kidney injury is been gradually improving. Sodium is at 138. The serum bicarbonate currently is at 22. She is afebrile. She is somewhat edematous stable. She is on IV antibiotics regarding her underlying UTI which includes a combination of enterococcus and E. coli. Note that the patient had a history of multidrug resistant E. coli and is currently sensitive to IV Zosyn. Objective - Vital Signs Vital signs: Vital Signs Temp 98.2 F 08/25/21 09:41 Pulse 70 08/25/21 09:41 Resp 16 08/25/21 09:41 BP 104/63 08/25/21 09:41 Pulse Ox 99 08/25/21 09:41 Intake & Output 08/24/21 08/25/21 08/25/21 18:59 06:59 18:59 Intake Total 480 480 Output Total 400 225 Balance 80 -225 480 Intake: Oral 480 480 Output: Stool 400 225 Other: Voiding Method Diaper Diaper # Voids 3 1 # Bowel Movements 1 - Exam No acute distress, oriented 3. Room air saturations 98%. HEENT examination is grossly unremarkable. Mucous membranes are dry. Neck supple. Full range of motion. No adenopathy thyromegaly or neck vein distention. Cardiovascular examination reveals an irregular rhythm and rate. S1-S2 normal. No S3 or S4. No discernible murmur noted. Heart rate is 64 bpm. Lungs reveal clear breath sounds. Breath sounds are equal bilaterally. No adventitious lung sounds including wheezes rhonchi or crackles. Abdomen soft bowel sounds are heard. No masses or tenderness. Extremities are intact. No cyanosis clubbing or edema. Skin is without rash or lesion. Neurologic examination is brief but nonfocal. - Labs CBC & Chem 7: 08/22/21 05:46 08/25/21 08:07 Labs: Abnormal Lab Results - Last 24 Hours (Table) 08/24/21 08/24/21 08/24/21 Range/Units 11:43 16:36 20:23 Chloride (98-107) mmol/L BUN (7-17) mg/dL Creatinine (0.52-1.04) mg/dL POC Glucose (mg/dL) 176 H 220 H 142 H (75-99) mg/dL Calcium (8.4-10.2) mg/dL 08/25/21 Range/Units 08:07 Chloride 111 H (98-107) mmol/L BUN 28 H (7-17) mg/dL Creatinine 2.64 H (0.52-1.04) mg/dL POC Glucose (mg/dL) (75-99) mg/dL Calcium 8.0 L (8.4-10.2) mg/dL Assessment and Plan Plan: 1 Altered mental status which is essentially multifactorial this point in time. I think is a component of metabolic encephalopathy due to above-mentioned comorbidities and sepsis and the patient was found to have E. coli and enterococcus in the urine currently on IV Zosyn. 2 PETE on top opf CKD stage 3 , improving the Cr i improved 3 anion metabolic acidosis/lactic acidosis 4 LLE DVT, unsure if the patient was taken and anticoagulation outpatient basis currently on Eliquis 5 New onset Afib /RVR , controlled currently on Eliquis 6 acute leukocutosis 7 recent infection with Coronavirus , without obvious coronavirus associated pneumonia. The patient remains on oxygen for now. No signs of any respiratory distress. 8 Escherichia coli urinary tract infection, rheecurrent infection. This is a multidrug resistant E. coli, sensitive to Zosyn 9 Uterus/pelvic mass,Recent exploratory laparotomy, right colectomy and ileostomy, with repair of umbilicus hernia, and mucous fistula, between June 20 and June 30, 2021. 10 History of CHF. Moderate concentric LV hypertrophy with preserved LV function with an ejection fraction of 55-60% and severe pulmonary hypertension with a PA pressure of 87 based on an earlier echocardiogram. 11 History of diabetes mellitus. 12 History of hyperlipidemia. 13 History of hypertension. 14 Osteoarthritis. 15 chronic neuropathy. 16 COPD 17 Chronic anemia, with interval drop in hemoglobin. There is no evidence of any GI bleeding at this point in time Plan This patient is currently off pressors Continue IV Zosyn We'll function continues to improve Metabolic acidosis recovered Continue anticoagulation with Eliquis Pulmonary critical care services will sign off the case. l Prognosis poor baseline above-mentioned comorbidities. Cultures will be sent. We'll make further recommendations based on her progress. Will advise evaluation of advanced directives and this patient by the primary care team.
--- NOTE | 2021-08-25 12:04 | P.PN ---
Subjective Progress Note Date: 08/25/21 Principal diagnosis: MGUS, acute LLE DVT post covid In f/u today pt denies any bleeding, no bleeding reported by Nursing. No other acute c/o. Objective - Vital Signs Vital signs: Vital Signs Temp 98.2 F 08/25/21 09:41 Pulse 70 08/25/21 09:41 Resp 16 08/25/21 09:41 BP 104/63 08/25/21 09:41 Pulse Ox 99 08/25/21 09:41 Intake & Output 08/24/21 08/25/21 08/25/21 18:59 06:59 18:59 Intake Total 480 480 Output Total 400 225 450 Balance 80 -225 30 Intake: Oral 480 480 Output: Drainage 450 Right Anterior Abdomen 450 Stool 400 225 Other: Voiding Method Diaper Diaper Diaper # Voids 3 1 # Bowel Movements 1 - Constitutional General appearance: Present: cooperative, no acute distress, obese - EENT Eyes: Present: anicteric sclerae, EOMI ENT: Present: hearing grossly normal - Respiratory Details: resp even and unlabored at rest - Musculoskeletal Musculoskeletal: Present: generalized weakness - Psychiatric Psychiatric: Present: A&O x's 3, appropriate affect, intact judgment & insight - Labs CBC & Chem 7: 08/22/21 05:46 08/25/21 08:07 Labs: Abnormal Lab Results - Last 24 Hours (Table) 08/24/21 08/24/21 08/25/21 Range/Units 16:36 20:23 08:07 Chloride 111 H (98-107) mmol/L BUN 28 H (7-17) mg/dL Creatinine 2.64 H (0.52-1.04) mg/dL POC Glucose (mg/dL) 220 H 142 H (75-99) mg/dL Calcium 8.0 L (8.4-10.2) mg/dL Assessment and Plan (1) DVT (deep venous thrombosis) Narrative/Plan: Acute DVT, suspect related to recent covid infection. Antophospholipid ab and beta 2 glycoprotein neg. DOAC acceptable. Full dose anticoagulation with eliquis prescribed as pt does have acute DVT to treat. Current Visit: Yes Status: Acute Priority: High Code(s): I82.409 - ACUTE EMBOLISM AND THOMBOS UNSP DEEP VN UNSP LOWER EXTREMITY SNOMED Code(s): 579843855 (2) MGUS (monoclonal gammopathy of unknown significance) Narrative/Plan: Labs reviewed show nothing progressive at this time. Labs will cont to be monitored in the outpt setting Current Visit: Yes Status: Chronic Priority: Medium Code(s): D47.2 - MONOCLONAL GAMMOPATHY SNOMED Code(s): 312026053 (3) Macrocytic anemia with vitamin B12 deficiency Narrative/Plan: Functional malabsorption of B12 as MMA was elevated. B12 and folic acid supplements started. Would recommend recheck of all 3 levels in about 6 weeks to see oral supplementation is adequate. Pt is also on aranesp for anemia of CKD Would anticipate an increase in Hgb with correction of deficiencies and supplementation for epo production. Current Visit: Yes Status: Chronic Priority: Medium Code(s): D51.8 - OTHER VITAMIN B12 DEFICIENCY ANEMIAS SNOMED Code(s): 95380366
[2021-08-25 12:06] LABS: Glucose,Whole Blood 202 mg/dL (75-99)
--- NOTE | 2021-08-25 12:43 | PN ---
PROGRESS NOTE Patient is seen for followup for acute kidney injury. Renal function is slightly improved, with creatinine down to 2.6 from peak of 3.56. Patient is currently comfortable, awake. She is not in any acute distress. Blood pressure 102/62, heart rate 62 per minute. She is afebrile. EXAMINATION OF THE HEART: S1 and S2. EXAMINATION OF LUNGS: Decreased breath sounds at the bases. Abdomen is soft, non-tender. Examination of lower extremities shows edema 1+ bilaterally. NEIGHBORHOOD CONSERVATION OFFICER EXAM: Grossly intact. Labs show sodium 138, potassium 4.1, chloride 111, BUN 28, creatinine 2.6 mg/dL. ASSESSMENT: 1. Acute kidney injury, mostly secondary to hypovolemia and hemodynamic instability, currently improving. No evidence of hydronephrosis. Patient is nonoliguric. 2. Chronic kidney disease, stage 3A, with baseline creatinine 1.3 to 1.5 mg/dL secondary to diabetic kidney disease. 3. Left lower extremity deep vein thrombosis, maintained on anticoagulation. 4. Atrial fibrillation with rapid ventricular response, maintained on metoprolol. 5. Metabolic acidosis associated with acute kidney injury, status post IV bicarb, maintained on oral sodium bicarb currently. 6. Septic shock associated with urinary tract infection. Urine culture positive for Enterococcus. 7. Acute blood loss anemia, status post packed RBCs transfusion. No active bleeding noted currently. PLAN: Continue to encourage increased oral intake. Monitor urine output. Repeat labs. MMODL / IJN: [id number] /
[2021-08-25] MEDS: ACETAMINOPHEN TAB 325 MG TAB PO PRN (13:21)
[2021-08-25 14:54] VITALS: BMI 30.6
[2021-08-25 17:12] LABS: Glucose,Whole Blood 195 mg/dL (75-99)
--- NOTE | 2021-08-25 17:25 | P.PN ---
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 Quiñonez, and recent admission from 07/29/21-08/04/21 for acute respiratory failure with hypoxia secondary to Covid 19 pneumonitis. Patient presented to the emergency department by EMS with a chief complaint of alteration in mental status, nausea and coffee ground emesis. Patient underwent full evaluation. She was found to be tachycardic 120s to 140s, to 20-24 breaths per minute, hypoxic requiring oxygen supplementation with placement on nonrebreather, and found to have a low-grade temp of 99.9F. EKG revealed atrial fibrillation with a rapid ventricular rate of 148 bpm. Labs revealed significant leukocytosis with WBC count 28.4, anemic with hemoglobin of 9.7, hyperkalemic with potassium 5.4, acidotic with chloride 107, CO2 8, anion gap 22, and plasma lactic acid of 5.0 acute kidney injury with BUN 60, creatinine 4.84, and GFR of 8 with baseline creatinine of 1.8-2.0. Troponins were elevated at 0.062 and 0.054. Pro-calcitonin also elevated at 1.50. Urinalysis positive for infection. Chest x-ray showing mild pulmonary fibrotic changes with no evidence of heart failure or acute cardiopulmonary process. CT chest, abdomen, and pelvis without contrast revealed no evidence of bowel obstruction with no free air however there was a reported new complex 6 x 4 cm cyst on right ovary which is reported being new compared to previous exam. Left lower extremity Dopplers were positive for DVT extending from the left popliteal vein to the femoral vein. Patient was started on heparin infusion for treatment of acute DVT, Cardizem infusion for atrial fibrillation with RVR, bicarb infusion for severe metabolic acidosis with a critical bicarb of 8. Given sepsis bolus of 3 L normal saline and started on IV antibiotics Zosyn and Levaquin. Consultations were placed general surgery for concerns of GI bleed, cardiology for elevated troponin and A. fib RVR, nephrology for acute renal failure and severe metabolic acidosis requiring bicarbonate infusion, and hematology secondary to development of DVT while on oral anticoagulant. Consult was also placed to suit maker secondary to critically ill patient, at this time patient awaiting bed placement on stepdown unit. Called to update patient's son, Yanick, I spoke with him and updated him on mother's critical condition. 08/18: Patient remains in the intensive care unit. She's been on amiodarone and heparin for A. fib with RVR, she is currently on norepinephrine and also receiving magnesium replacement. Patient has black stool in her ostomy and heparin will be discontinued. Abdomen is firm. Consult is in place with general surgery and she has been cleared to start diet. Patient is seen and followed by multiple consultants including oncology, cardiology, nephrology and suit maker. Echocardiogram reveals EF of 65-70%, aneurysmal intra-atrial septum, mild tricuspid regurgitation, no aortic stenosis or regurgitation. Mild mitral ossification. Mild pulmonary hypertension, RVSP 37.19.. Pulmonary perfusion study showed small perfusion defects correspond to low probability for pulmonary embolism. 08/19: She remains in the intensive care unit and on norepinephrine. She has been afebrile, heart rate 68, blood pressure 106/41 and pulse ox 93% on room air. Hemoglobin this morning is 6.7 and 1 unit of packed RBCs has been ordered. Patient has liquid dark brown stool in her ostomy bag. Other blood work reveals BUN of 49 creatinine 3.56 which is improving. Blood sugars are running between 67 and 150. We'll discontinue scheduled NovoLog as patient is now off drips containing D5W. Bicarbonate drip discontinued. Patient remains confused. Urine culture is showing group D enterococcus and gram-negative bacilli. Blood culture no growth at 48 hours 2 specimens. 08/20: Patient is seen today in the emergency center. She is off vasopressors and has been downgraded to the cardiac stepdown unit. Patient is more oriented today. She denies having any shortness of breath or cough. Output from ostomy is brown liquid, no blood noted. Patient denies abdominal pain. She is still not eating very much but no nausea or vomiting. Patient received 1 unit of packed RBCs yesterday and hemoglobin is 7.9. WBC 14.3, platelet count 177. BUN 44 and creatinine 3.47. Blood sugars are running between 82 and 150s. Urine culture finalized with Enterococcus faecium and E. coli. Patient has been resumed on eliquis. 08/21: Patient remains in the intensive care unit waiting for a bed on the cardiac stepdown unit. She's been afebrile, heart rate 60, blood pressure 108/79, pulse ox 92% on room air. Repeat blood work reveals WBC 11.3, hemoglobin 8.9, platelet count 188. Sodium 143, potassium 3.6, chloride 110, CO2 23, BUN 39 creatinine 3.27. Alkaline phosphatase 151. Blood sugars are running between 70 to and 89. Patient is seen today sitting up in recliner in the intensive care unit. She has been started on 3 L nasal cannula. We will start Lasix 20 mg IV daily for 2 days. Repeat chest x-ray reveals mild cardiomegaly and chronic. She will changes with left basilar acute infiltrate and/or atelectasis redemonstrated. No significant change. New small to tiny right pleural effusion. Very decreased IV fluids to 40 mL per hour Nephrology has added Aranesp, potassium replaced. 08/22: Patient is seen today on the cardiac stepdown unit. Patient continues to have confusion and pulled off colostomy bag today. This has been replaced by nursing. She has decreased edema to the lower extremities. Nephrology has discontinued IV Lasix, sodium bicarb added. Repeat chest x-ray reveals right subclavian CVC tip malpositioned. Continue small effusions and adjacent ate lectasis and/or consolidation. Evidence of prior granulomatosis disease. Surgery and [employer] of signed off her case. Discharge planning is difficult as patient is out of residential days and does not qualify for Medicaid. Patient truly needs long-term placement. Social work is following. Anticipate she will be ready for discharge next week 08/23: Patient was seen today on . Patient states that she is feeling fine today. She is able to answer questions appropriately. We are continuing to wait on placement options. At this time Shipping Lead Person has signed off on her case stating that she can have a D&C an outpatient basis. 08/24: She was seen today on [facility]. She is found sitting up in bed in no acute distress. Patient able to answer questions appropriately and voice no concerns. Still awaiting information on placement options with social work. Patient remains afebrile, respirations 16, heart rate 66, blood pressure 97/60 pulse ox 98% on room air 08/25: Patient is seen medically stable at this time, no respiratory distress, very frail looking, but is appropriately getting nourishment, independently. His awaiting for placement options, as per current home is not a safe place for her to be back, patient is not able to sufficiently managed, despite family members trying to assist her, she needs 24-hour supervision, with awaiting for Medicaid pending status, she needs to be placed in long-term placement, subacute rehab vitals are stable, labs shows a creatinine of 2.64, potassium 4.1, BUN of 28, better from a previous of creatinine of 2.73 Review Of Systems: Constitutional: No documented fever, no chills, no night sweats. No weight change. Noted weakness, noted fatigue. No daytime sleepiness. EENT: No headache. No blurred vision or double vision, no loss of vision. No loss of Hearing, no ringing in the ears, no dizziness. No nasal drainage or congestion. No epistaxis. No sore throat. Lungs: No shortness of breath, cough, no sputum production. No wheezing. Cardiovascular: No chest pain, no lower extremity edema. No palpitations. No paroxysmal nocturnal dyspnea. No orthopnea. No lightheadedness or dizziness. No syncopal episodes. Abdominal: No abdominal pain. No nausea, vomiting. No diarrhea. No constipation. No bloody or tarry stools. Noted loss of appetite. Genitourinary: No dysuria, increased frequency, urgency. No urinary retention. Vaginal bleeding-resolved. Musculoskeletal: No myalgias. No muscle weakness, no gait dysfunction, no frequent falls. No back pain. No neck pain. Integumentary: No wounds, no lesions. No rash or pruritus. No unusual bruising. No change in hair or nails. Neurologic: No aphasia. No facial droop. Noted change in mentation. No head injury. No headache. No paralysis. No paresthesia. Psychiatric: No depression. No anxiety. No mood swings. Endocrine: No abnormal blood sugars. No weight change. No excessive sweating or thirst. No cold intolerance. Physical exam: Gen: This is an elderly frail appearing 80-year-old female, resting in recliner in no acute distress. HEENT: Head is atraumatic, normocephalic. Pupils equal, round. Sclerae is anicteric. Patient is edentulous. NECK: Supple. No JVD. No lymphadenopathy. No thyromegaly. LUNGS: Decreased breath some bilateral rhonchi and mild expiratory wheezes. HEART: Irregular rate and rhythm. Monitor atrial fibrillation. ABDOMEN: Abdomen firm, no rebound or rigidity. Ostomy on the right side with brown liquid stool. Beckett catheter draining nicolette urine EXTREMITIES: Noted pedal edema. No calf tenderness. NEUROLOGICAL: Patient is awake, alert and oriented to person. Assessment and Plan of Care: Metabolic encephalopathy, Likely multifactorial resulting from current critical state with severe metabolic acidosis, severe sepsis, PETE, and following conditions listed below. Severe sepsis with septic shock requiring vasopressors of unclear etiology possibly urinary tract infection versus other source such as abdominal Continue care in the CSD unit, suit maker consult appreciated. continue Zosyn, vasopressor support has been discontinued Acute GI bleed with reports of coffee-ground emesis Acute on chronic anemia slightly below baseline hemoglobin of 9, acute blood loss anemia Suspected [employer] malignancy with vaginal bleeding, resolved, unstable for surgical intervention at this time Continue Protonix 40 mg IV twice daily, general surgery consult, diet advanced to regular. Continue to monitor hemoglobin. Heparin drip discontinued. Patient status post transfusion 1 unit of packed RBCs. Acute DVT of left lower extremity Acute hypoxic respiratory failure, recent admission for Covid 19 pneumonitis from 07/29/21 through 08/04/21 Pulmonary embolus ruled out. Eliquis 2.5 mg twice daily. Acute kidney injury on chronic kidney disease stage III Severe Metabolic acidosis Lactic acidosis Enterococcus faecium and E. coli UTI -Consult nephrology appreciated -Insert Beckett catheter for close monitoring of I's and O's. -Continue Zosyn -Caution with nephrotoxic medications. -Sodium bicarb 650 mg twice daily Atrial fibrillation with RVR, paroxysmal atrial fibrillation Elevated troponin, flat, likely secondary to RVR Chronic diastolic heart failure with previously known EF of 55-60% Off Cardizem drip, cardiology consult appreciated, continue Lopressor 25 mg twice daily, eliquis 2.5 mg twice daily. Diabetes mellitus type 2 insulin requiring, uncontrolled with hyperglycemia. Continue NovoLog scale, add NovoLog 5 units with meals Incidental finding on imaging -CT reported new complex 6 x 4 cm cyst on right ovary which is reported being new compared to previous exam -Previous surgical report from 06/20/21 stated findings of a 3.5 cm lesion on right ovary concerning for potential ovarian cancer Oncology consult appreciated Hypertension. Patient is off anti-hypertensive medications. Hyperlipidemia CODE STATUS: Full code DVT prophylaxis: SCDs and FAHEEM [email or web address] DISCHARGE PLAN Subacute rehab next week, awaiting Medicaid application. Current Medications Acetaminophen (Acetaminophen Tab 325 Mg Tab) 650 mg PO Q6HR PRN PRN Reason: Fever and/ or Pain Last Admin: 08/25/21 13:21 Dose: 650 mg Documented by: Apixaban (Apixaban 5 Mg Tab) 5 mg PO BID [facility]; Protocol Cyanocobalamin (Cyanocobalamin 500 Mcg Tab) 1,000 mcg PO DAILY [facility] Last Admin: 08/25/21 09:27 Dose: 1,000 mcg Documented by: Darbepoetin Steven (Darbepoetin Steven 25 Mcg/0.42 Ml Syringe) 25 mcg SQ Q7D [facility] Last Admin: 08/21/21 14:19 Dose: 25 mcg Documented by: Famotidine (Famotidine 20 Mg Tab) 20 mg PO DAILY [facility] Last Admin: 08/25/21 09:27 Dose: 20 mg Documented by: Fluoxetine HCl (Fluoxetine Hcl 20 Mg Cap) 40 mg PO DAILY [facility] Last Admin: 08/25/21 09:27 Dose: 40 mg Documented by: Folic Acid (Folic Acid 1 Mg Tab) 1 mg PO DAILY [facility] Last Admin: 08/25/21 09:27 Dose: 1 mg Documented by: Piperacillin Sod/Tazobactam (Sod 3.375 gm/ Sodium Chloride) 100 mls @ 25 mls/hr IVPB Q12HR [facility] Last Admin: 08/25/21 09:28 Dose: 25 mls/hr Documented by: Sodium Chloride (Saline 0.9%) 1,000 mls @ 20 mls/hr IV .Q24H [facility] Last Admin: 08/25/21 09:44 Dose: 20 mls/hr Documented by: Insulin Aspart (Insulin Aspart (Novolog) 100 Unit/Ml Vial) 0 unit SQ ACHS [facility]; Protocol Last Admin: 08/25/21 13:18 Dose: 2 unit Documented by: Lactic Acid (Ammonium Lactate 12% Lotion 225 Gm Btl) 1 applic TOPICAL BID [facility]; Protocol Last Admin: 08/25/21 09:28 Dose: 1 applic Documented by: Magnesium Oxide (Magnesium Oxide 400 Mg Tab) 400 mg PO DAILY [facility] Last Admin: 08/25/21 09:27 Dose: 400 mg Documented by: Metoprolol Tartrate (Metoprolol Tartrate 25 Mg Tab) 25 mg PO BID [facility] Last Admin: 08/25/21 09:27 Dose: 25 mg Documented by: Miscellaneous Information (Potassium Replacement Protocol 1 Each Misc) 1 each MISCELLANE DAILY PRN; Protocol PRN Reason: Per Protocol Naloxone HCl (Naloxone 0.4 Mg/Ml 1 Ml Vial) 0.2 mg IV Q2M PRN PRN Reason: Opioid Reversal Ondansetron HCl (Ondansetron 4 Mg/2 Ml Vial) 4 mg IVP Q6HR PRN PRN Reason: Nausea And Vomiting Last Admin: 08/20/21 09:53 Dose: 4 mg Documented by: Pantoprazole Sodium (Pantoprazole 40 Mg/10 Ml Vial) 40 mg IVP BID [facility] Last Admin: 08/25/21 09:28 Dose: 40 mg Documented by: Pravastatin Sodium (Pravastatin Sodium 40 Mg Tab) 40 mg PO HS [facility] Last Admin: 08/24/21 21:03 Dose: 40 mg Documented by: Sodium Bicarbonate (Sodium Bicarbonate Tab 650 Mg Tab) 650 mg PO BID [facility] Last Admin: 08/25/21 09:27 Dose: 650 mg Documented by: Laboratory Results - Last 24 Hours 08/24/21 08/25/21 08/25/21 20:23 06:09 08:07 Sodium 138 Potassium 4.1 Chloride 111 H Carbon Dioxide 22 Anion Gap 5 BUN 28 H Creatinine 2.64 H Est GFR (CKD-EPI)AfAm 19 Est GFR (CKD-EPI)NonAf 17 Glucose 91 POC Glucose (mg/dL) 142 H 82 POC Glu [employer] Home Sales Consultant ID Anita, Moon, Candy Anita, Moon, Candy Calcium 8.0 L Magnesium 1.6 08/25/21 08/25/21 11:45 16:43 Sodium Potassium Chloride Carbon Dioxide Anion Gap BUN Creatinine Est GFR (CKD-EPI)AfAm Est GFR (CKD-EPI)NonAf Glucose POC Glucose (mg/dL) 202 H 195 H POC Glu [employer] Home Sales Consultant ID Nick, Sarah Nick, Sarah Calcium Magnesium Vital Signs Temp 98 F 08/25/21 13:22 Pulse 70 01/10/22 13:22 Resp 15 08/25/21 13:22 BP 92/47 08/25/21 13:22 Pulse Ox 98 08/25/21 13:22 Intake & Output 08/24/21 08/25/21 08/25/21 18:59 06:59 18:59 Intake Total 480 960 Output Total 400 225 850 Balance 80 -225 110 Weight 81 kg Intake: Oral 480 960 Output: Drainage 450 Right Anterior Abdomen 450 Stool 400 225 400 Other: Voiding Method Diaper Diaper Diaper # Voids 3 1 # Bowel Movements 1 Objective - Vital Signs Vital signs: Vital Signs Temp 98 F 08/25/21 13:22 Pulse 70 08/25/21 13:22 Resp 15 08/25/21 13:22 BP 92/47 08/25/21 13:22 Pulse Ox 98 08/25/21 13:22 Intake & Output 08/24/21 08/25/21 08/25/21 18:59 06:59 18:59 Intake Total 480 960 Output Total 400 225 450 Balance 80 -225 510 Intake: Oral 480 960 Output: Drainage 450 Right Anterior Abdomen 450 Stool 400 225 Other: Voiding Method Diaper Diaper Diaper # Voids 3 1 # Bowel Movements 1 - Labs CBC & Chem 7: 08/22/21 05:46 08/25/21 08:07 Labs: Abnormal Lab Results - Last 24 Hours (Table) 08/24/21 08/24/21 08/25/21 Range/Units 16:36 20:23 08:07 Chloride 111 H (98-107) mmol/L BUN 28 H (7-17) mg/dL Creatinine 2.64 H (0.52-1.04) mg/dL POC Glucose (mg/dL) 220 H 142 H (75-99) mg/dL Calcium 8.0 L (8.4-10.2) mg/dL 08/25/21 Range/Units 11:45 Chloride (98-107) mmol/L BUN (7-17) mg/dL Creatinine (0.52-1.04) mg/dL POC Glucose (mg/dL) 202 H (75-99) mg/dL Calcium (8.4-10.2) mg/dL
--- NOTE | 2021-08-25 17:49 | PN ---
PROGRESS NOTE DATE OF SERVICE: 08/25/2021 REASON FOR FOLLOWUP: Urinary tract infection. INTERVAL HISTORY: Patient is afebrile. The patient is breathing comfortably on room air. Denies any chest pain, shortness of breath, cough, no abdominal pain or diarrhea. PHYSICAL EXAMINATION: Blood pressure 92/47, pulse 70, temperature 98, she is 98% on room air. General description is an elderly female lying in bed in no distress. Respiratory system: Unlabored breathing, decreased intensity of breath sounds. No wheeze. Heart S1, S2. Regular rate and rhythm. Abdomen soft, no tenderness. LABS: Creatinine is down to 2.64. Blood culture negative. Urine showing Enterococcus faecium and E. coli urinary tract infection. The patient is covered clinically responded to Zosyn. Finishing therapy with oral Augmentin and close outpatient followup. MMODL / IJN: [id number] /
[2021-08-25 20:26] LABS: Glucose,Whole Blood 155 mg/dL (75-99)
[2021-08-25] MEDS: PRAVASTATIN SODIUM 40 MG TAB PO SCH (21:20)
[2021-08-25] MEDS: APIXABAN 5 MG TAB PO SCH (21:20)
[2021-08-26 06:03] LABS: Glucose,Whole Blood 104 mg/dL (75-99)
[2021-08-26] MEDS: INSULIN ASPART (NovoLOG) 100 UNIT/ML VIAL SQ SCH ×3 (06:06→16:59)
[2021-08-26 08:14] LABS: Anisocytosis Slight; HCT 29.3 % (34.0-46.0); HGB 8.8 gm/dL (11.4-16.0); Hypochromasia Marked; MCH 30.9 pg (25.0-35.0); MCHC 30.1 g/dL (31.0-37.0); MCV 102.7 fL (80.0-100.0); Macrocytosis Moderate; Mean Platelet Volume 10.6; Platelet Count 178 k/uL (150-450); RBC 2.85 m/uL (3.80-5.40); RDW 16.6 % (11.5-15.5); WBC 13.8 k/uL (3.8-10.6)
[2021-08-26 08:53] LABS: Band Neutrophils % 1 %; Eosinophils # (M) 0.97 k/uL (0-0.7); Lymphocytes # (M) 1.52 k/uL (1.0-4.8); Metamyelocytes # (M) 0.14 k/uL (0); Metamyelocytes % 1 %; Monocytes # (M) 0.97 k/uL (0-1.0); Myelocytes # (M) 0.41 k/uL (0); Myelocytes % 3 %; Neutrophils % (M) 72 %; Nucleated Red Blood Cells 0 /100 WBC (0-0); Total Cells Counted 200
[2021-08-26 08:57] LABS: Poikilocytosis (M) Present
[2021-08-26 08:58] LABS: Toxic Granulation Present
[2021-08-26] MEDS: SODIUM CHLORIDE 0.9% 1,000 ML IV SCH (09:35)
[2021-08-26] MEDS: METOPROLOL TARTRATE 25 MG TAB PO SCH (09:35)
[2021-08-26] MEDS: CYANOCOBALAMIN 500 MCG TAB PO SCH (09:36)
[2021-08-26] MEDS: FLUoxetine HCL 20 MG CAP PO SCH (09:36)
[2021-08-26] MEDS: APIXABAN 5 MG TAB PO SCH (09:36)
[2021-08-26] MEDS: AMMONIUM LACTATE 12% LOTION 225 GM BTL TOPICAL SCH (09:36)
[2021-08-26] MEDS: FAMOTIDINE 20 MG TAB PO SCH (09:36)
[2021-08-26] MEDS: SODIUM BICARBONATE TAB 650 MG TAB PO SCH (09:36)
[2021-08-26] MEDS: FOLIC ACID 1 MG TAB PO SCH (09:36)
[2021-08-26] MEDS: MAGNESIUM OXIDE 400 MG TAB PO SCH (09:36)
[2021-08-26] MEDS: PANTOPRAZOLE 40 MG/10 ML VIAL IVP SCH (09:36)
[2021-08-26 11:35] LABS: Glucose,Whole Blood 203 mg/dL (75-99)
--- NOTE | 2021-08-26 11:38 | P.PN ---
Subjective Progress Note Date: 08/26/21 Principal diagnosis: MGUS, acute LLE DVT post covid In f/u today plans for rehab, pt agrees and wants to participate in rehab. Denies bleeding, tolerating eliquis Objective - Vital Signs Vital signs: Vital Signs Temp 97.8 F 08/26/21 09:40 Pulse 62 08/26/21 09:40 Resp 17 08/26/21 09:40 BP 106/66 08/26/21 09:40 Pulse Ox 99 08/26/21 09:40 Intake & Output 08/25/21 08/26/21 08/26/21 18:59 06:59 18:59 Intake Total 960 100 236 Output Total 850 700 Balance 110 -600 236 Weight 81 kg Intake: IV 100 Piperacillin-Tazobactam 3 100 .375 gm In Sodium Chloride 0.9% 100 ml @ 25 mls/hr IVPB Q12HR [facility] Rx #:[id number] Oral 960 236 Output: Drainage 450 Right Anterior Abdomen 450 Stool 400 700 Other: Voiding Method Diaper Diaper Diaper Incontinent Incontinent # Voids 1 - Constitutional General appearance: Present: cooperative, no acute distress, obese - EENT Eyes: Present: anicteric sclerae, EOMI ENT: Present: hearing grossly normal - Respiratory Details: resp even and unlabored at rest - Integumentary Integumentary: Present: pale - Musculoskeletal Musculoskeletal: Present: generalized weakness - Psychiatric Psychiatric: Present: A&O x's 3, appropriate affect, intact judgment & insight - Labs CBC & Chem 7: 08/26/21 07:35 08/25/21 08:07 Labs: Abnormal Lab Results - Last 24 Hours (Table) 08/25/21 08/25/21 08/25/21 Range/Units 11:45 16:43 20:25 WBC (3.8-10.6) k/uL RBC (3.80-5.40) m/uL Hgb (11.4-16.0) gm/dL Hct (34.0-46.0) % MCV (80.0-100.0) fL MCHC (31.0-37.0) g/dL RDW (11.5-15.5) % Neutrophils # (Manual) (1.3-7.7) k/uL Eosinophils # (Manual) (0-0.7) k/uL Metamyelocytes # (Man) (0) k/uL Myelocytes # (Manual) (0) k/uL POC Glucose (mg/dL) 202 H 195 H 155 H (75-99) mg/dL 08/26/21 08/26/21 Range/Units 06:02 07:35 WBC 13.8 H (3.8-10.6) k/uL RBC 2.85 L (3.80-5.40) m/uL Hgb 8.8 L (11.4-16.0) gm/dL Hct 29.3 L (34.0-46.0) % MCV 102.7 H (80.0-100.0) fL MCHC 30.1 L (31.0-37.0) g/dL RDW 16.6 H (11.5-15.5) % Neutrophils # (Manual) 10.00 H (1.3-7.7) k/uL Eosinophils # (Manual) 0.97 H (0-0.7) k/uL Metamyelocytes # (Man) 0.14 H (0) k/uL Myelocytes # (Manual) 0.41 H (0) k/uL POC Glucose (mg/dL) 104 H (75-99) mg/dL Assessment and Plan (1) DVT (deep venous thrombosis) Narrative/Plan: Acute LLE DVT, suspect related to recent covid infection. Antophospholipid ab and beta 2 glycoprotein neg. DOAC acceptable. Full dose anticoagulation with eliquis prescribed as pt does have acute DVT to treat. Current Visit: Yes Status: Acute Priority: High Code(s): I82.409 - ACUTE EMBOLISM AND THOMBOS UNSP DEEP VN UNSP LOWER EXTREMITY SNOMED Code(s): 544085458 (2) MGUS (monoclonal gammopathy of unknown significance) Narrative/Plan: Labs reviewed show nothing progressive at this time. Labs will cont to be monitored in the outpt setting Current Visit: Yes Status: Chronic Priority: Medium Code(s): D47.2 - MONOCLONAL GAMMOPATHY SNOMED Code(s): 704442689 (3) Macrocytic anemia with vitamin B12 deficiency Narrative/Plan: Functional malabsorption of B12 as MMA was elevated. B12 and folic acid supplements started. Would recommend recheck of all 3 levels in about 6 weeks to see oral supplementation is adequate. May need parenteral cyanocobalamin Pt is on aranesp for anemia of CKD Would anticipate an increase in Hgb with correction of deficiencies and s upplementation for epo production. Current Visit: Yes Status: Chronic Priority: Medium Code(s): D51.8 - OTHER VITAMIN B12 DEFICIENCY ANEMIAS SNOMED Code(s): 32064720
--- NOTE | 2021-08-26 11:47 | P.PN ---
Subjective Patient is seen in follow-up for acute kidney injury on chronic kidney disease. Renal function gradually improving. On room air. Oral intake fair. Denies chest pain or shortness of breath. Has been voiding. Vital signs are stable. HEENT: Head exam is unremarkable. LUNGS:Breath sounds decreased. HEART: Regular rate and rhythm. ABDOMEN: Soft, no distention. EXTREMITITES: 1+ edema left lower extremity. No edema in the right lower extremity. Objective - Vital Signs Vital signs: Vital Signs Temp 97.8 F 08/26/21 09:40 Pulse 62 08/26/21 09:40 Resp 17 08/26/21 09:40 BP 106/66 08/26/21 09:40 Pulse Ox 99 08/26/21 09:40 Intake & Output 08/25/21 08/26/21 08/26/21 18:59 06:59 18:59 Intake Total 960 100 236 Output Total 850 700 Balance 110 -600 236 Weight 81 kg Intake: IV 100 Piperacillin-Tazobactam 3 100 .375 gm In Sodium Chloride 0.9% 100 ml @ 25 mls/hr IVPB Q12HR [facility] Rx #:[id number] Oral 960 236 Output: Drainage 450 Right Anterior Abdomen 450 Stool 400 700 Other: Voiding Method Diaper Diaper Diaper Incontinent Incontinent # Voids 1 - Labs CBC & Chem 7: 08/26/21 07:35 08/25/21 08:07 Labs: Abnormal Lab Results - Last 24 Hours (Table) 08/25/21 08/25/21 08/25/21 Range/Units 11:45 16:43 20:25 WBC (3.8-10.6) k/uL RBC (3.80-5.40) m/uL Hgb (11.4-16.0) gm/dL Hct (34.0-46.0) % MCV (80.0-100.0) fL MCHC (31.0-37.0) g/dL RDW (11.5-15.5) % Neutrophils # (Manual) (1.3-7.7) k/uL Eosinophils # (Manual) (0-0.7) k/uL Metamyelocytes # (Man) (0) k/uL Myelocytes # (Manual) (0) k/uL POC Glucose (mg/dL) 202 H 195 H 155 H (75-99) mg/dL 08/26/21 08/26/21 08/26/21 Range/Units 06:02 07:35 11:30 WBC 13.8 H (3.8-10.6) k/uL RBC 2.85 L (3.80-5.40) m/uL Hgb 8.8 L (11.4-16.0) gm/dL Hct 29.3 L (34.0-46.0) % MCV 102.7 H (80.0-100.0) fL MCHC 30.1 L (31.0-37.0) g/dL RDW 16.6 H (11.5-15.5) % Neutrophils # (Manual) 10.00 H (1.3-7.7) k/uL Eosinophils # (Manual) 0.97 H (0-0.7) k/uL Metamyelocytes # (Man) 0.14 H (0) k/uL Myelocytes # (Manual) 0.41 H (0) k/uL POC Glucose (mg/dL) 104 H 203 H (75-99) mg/dL Assessment and Plan Plan: Assessment: 1. Acute kidney injury mostly prerenal secondary to hypovolemia and hemodynamic instability. Creatinine 4.84 on admission - 2.64 today. Non-oliguric. No hydronephrosis noted on CAT scan. 2. Chronic kidney disease stage IIIa with baseline creatinine in the range of 1.3-1.5 secondary to diabetic kidney disease. 3. Left lower extremity DVT. On anticoagulation. 4. A. fib with RVR maintained on metoprolol. 5. Metabolic acidosis secondary to acute kidney injury. s/p bicarbonate drip. On oral bicarbonate. Better. 6. Diabetes mellitus. 7. Hypomagnesemia from poor intake. On oral magnesium oxide. 8. Septic shock secondary to UTI. Urine culture positive for enterococcus. 9. Acute blood loss anemia. Status post blood transfusion 08/19/2021. Improved. No active bleeding. On Aranesp. 10. Hypokalemia from poor intake. Replaced. Better. Plan: Encourage oral intake. Avoid nephrotoxins. Preserved ejection fraction. Continue to monitor renal function and urine output. Repeat labs in the morning.
[2021-08-26 13:08] VITALS: RESP 16
--- NOTE | 2021-08-26 14:26 | P.DS ---
Providers Date of admission: 08/17/21 04:13 Expected date of discharge: 08/26/21 Attending physician: Kalia Aggarwal Consults: 08/17/21 05:14 Consult Physician Urgent Consulting Provider: Khoa Sidhu Consult Reason/Comments: critically ill patient for ICU admission Do you want consulting provider notified?: Yes 08/17/21 05:27 Consult Physician Routine Consulting Provider: Tree Eugene Consult Reason/Comments: atrial fibrillation with RVR Do you want consulting provider notified?: Yes 08/17/21 08:46 Consult Physician Urgent Consulting Provider: Steve Funes Consult Reason/Comments: PETE on CKD, Cr 4.84 w/ baseline 2 Do you want consulting provider notified?: Yes 08/17/21 13:03 Consult Physician Urgent Consulting Provider: Victor Manuel Lofton Consult Reason/Comments: large DVT while on anticoagulant w/ Eliquis, likely d/t COVID Do you want consulting provider notified?: Yes 08/18/21 04:01 Consult Physician Stat Consulting Provider: Abdirizak Anderson Consult Reason/Comments: ICU management Do you want consulting provider notified?: Already Contacted 08/18/21 11:04 Consult Physician Routine Consulting Provider: Dee Dee Baez Consult Reason/Comments: pelvic mass Do you want consulting provider notified?: Yes 08/20/21 08:41 Consult Physician Routine Consulting Provider: Jose Juan Reddy Consult Reason/Comments: urosepsis Do you want consulting provider notified?: Yes Primary care physician: Kalia Aggarwal [facility] Course: HPI: Patient is a very pleasant 80-year-old female with a past medical history of CAD with previous VT, diastolic heart failure with previously known EF of 55-60%, severe pulmonary hypertension, atrial fibrillation on anticoagulation with Eliquis, hypertension, hyperlipidemia, CKD stage III, insulin-dependent diabetes mellitus, 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 Quiñonez, and recent admission from 07/29/21-08/04/21 for acute respiratory failure with hypoxia secondary to Covid 19 pneumonitis. Patient presented to the emergency department by EMS with a chief complaint of alteration in mental status, nausea and coffee ground emesis. Patient underwent full evaluation. She was found to be tachycardic 120s to 140s, to 20-24 breaths per minute, hypoxic requiring oxygen supplementation with placement on nonrebreather, and found to have a low-grade temp of 99.9F. EKG revealed atrial fibrillation with a rapid ventricular rate of 148 bpm. Labs revealed significant leukocytosis with WBC count 28.4, anemic with hemoglobin of 9.7, hyperkalemic with potassium 5.4, acidotic with chloride 107, CO2 8, anion gap 22, and plasma lactic acid of 5.0 acute kidney injury with BUN 60, creatinine 4.84, and GFR of 8 with baseline creatinine of 1.8-2.0. Troponins were elevated at 0.062 and 0.054. Pro-calcitonin also elevated at 1.50. Urinalysis positive for infection. Chest x-ray showing mild pulmonary fibrotic changes with no evidence of heart failure or acute cardiopulmonary process. CT chest, abdomen, and pelvis without contrast revealed no evidence of bowel obstruction with no free air however there was a reported new complex 6 x 4 cm cyst on right ovary which is reported being new compared to previous exam. Left lower extremity Dopplers were positive for DVT extending from the left popliteal vein to the femoral vein. Patient was started on heparin infusion for treatment of acute DVT, Cardizem infusion for atrial fibrillation with RVR, bicarb infusion for severe metabolic acidosis with a critical bicarb of 8. Given sepsis bolus of 3 L normal saline and started on IV antibiotics Zosyn and Levaquin. Consultations were placed general surgery for concerns of GI bleed, cardiology for elevated troponin and A. fib RVR, nephrology for acute renal failure and severe metabolic acidosis requiring bicarbonate infusion, and hematology secondary to development of DVT while on oral anticoagulant. Consult was also placed to middle school coach secondary to critically ill patient, at this time patient awaiting bed placement on stepdown unit. Called to update patient's son, Yanick, I spoke with him and updated him on mother's critical condition. 08/18: Patient remains in the intensive care unit. She's been on amiodarone and heparin for A. fib with RVR, she is currently on norepinephrine and also receiving magnesium replacement. Patient has black stool in her ostomy and heparin will be discontinued. Abdomen is firm. Consult is in place with general surgery and she has been cleared to start diet. Patient is seen and followed by multiple consultants including oncology, cardiology, nephrology and middle school coach. Echocardiogram reveals EF of 65-70%, aneurysmal intra-atrial septum, mild tricuspid regurgitation, no aortic stenosis or regurgitation. Mild mitral ossification. Mild pulmonary hypertension, RVSP 37.19.. Pulmonary perfusion study showed small perfusion defects correspond to low probability for pulmonary embolism. 08/19: She remains in the intensive care unit and on norepinephrine. She has been afebrile, heart rate 68, blood pressure 106/41 and pulse ox 93% on room air. Hemoglobin this morning is 6.7 and 1 unit of packed RBCs has been ordered. Patient has liquid dark brown stool in her ostomy bag. Other blood work reveals BUN of 49 creatinine 3.56 which is improving. Blood sugars are running between 67 and 150. We'll discontinue scheduled NovoLog as patient is now off drips containing D5W. Bicarbonate drip discontinued. Patient remains confused. Urine culture is showing group D enterococcus and gram-negative bacilli. Blood culture no growth at 48 hours 2 specimens. 08/20: Patient is seen today in the emergency center. She is off vasopressors and has been downgraded to the cardiac stepdown unit. Patient is more oriented today. She denies having any shortness of breath or cough. Output from ostomy is brown liquid, no blood noted. Patient denies abdominal pain. She is still not eating very much but no nausea or vomiting. Patient received 1 unit of packed RBCs yesterday and hemoglobin is 7.9. WBC 14.3, platelet count 177. BUN 44 and creatinine 3.47. Blood sugars are running between 82 and 150s. Urine culture finalized with Enterococcus faecium and E. coli. Patient has been resumed on eliquis. 08/21: Patient remains in the intensive care unit waiting for a bed on the cardiac stepdown unit. She's been afebrile, heart rate 60, blood pressure 108/79, pulse ox 92% on room air. Repeat blood work reveals WBC 11.3, hemoglobin 8.9, platelet count 188. Sodium 143, potassium 3.6, chloride 110, CO2 23, BUN 39 creatinine 3.27. Alkaline phosphatase 151. Blood sugars are running between 70 to and 89. Patient is seen today sitting up in recliner in the intensive care unit. She has been started on 3 L nasal cannula. We will start Lasix 20 mg IV daily for 2 days. Repeat chest x-ray reveals mild cardiomegaly and chronic. She will changes with left basilar acute infiltrate and/or atelectasis redemonstrated. No significant change. New small to tiny right pleural effusion. Very decreased IV fluids to 40 mL per hour Nephrology has added Aranesp, potassium replaced. 08/22: Patient is seen today on the cardiac stepdown unit. Patient continues to have confusion and pulled off colostomy bag today. This has been replaced by nursing. She has decreased edema to the lower extremities. Nephrology has discontinued IV Lasix, sodium bicarb added. Repeat chest x-ray reveals right subclavian CVC tip malpositioned. Continue small effusions and adjacent atelectasis and/or consolidation. Evidence of prior granulomatosis disease. Surgery and IMAGING SERVICES DIRECTOR of signed off her case. Discharge planning is difficult as patient is out of correction days and does not qualify for Medicaid. Patient truly needs long-term placement. Social work is following. Anticipate she will be ready for discharge next week 08/23: Patient was seen today on . Patient states that she is feeling fine today. She is able to answer questions appropriately. We are continuing to wait on placement options. At this time Air Director has signed off on her case stating that she can have a D&C an outpatient basis. 08/24: She was seen today on . She is found sitting up in bed in no acute distress. Patient able to answer questions appropriately and voice no concerns. Still awaiting information on placement options with social work. Patient remains afebrile, respirations 16, heart rate 66, blood pressure 97/60 pulse ox 98% on room air 08/25: Patient is seen medically stable at this time, no respiratory distress, very frail looking, but is appropriately getting nourishment, independently. His awaiting for placement options, as per current home is not a safe place for her to be back, patient is not able to sufficiently managed, despite family members trying to assist her, she needs 24-hour supervision, with awaiting for Medicaid pending status, she needs to be placed in long-term placement, subacute rehab vitals are stable, labs shows a creatinine of 2.64, potassium 4.1, BUN of 28, better from a previous of creatinine of 2.73 08/26: Patient daughter, Shanelle, and son, Leland, are at bedside. Repeat blood work reveals WBC 13.8, hemoglobin 8.8, platelet count 178. Blood sugars running between 104 and 203. Creatinine yesterday 2.64 and BUN 28. Patient has been followed by multiple consultants including oncology, nephrology, infectious disease. 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 Recommend recheck of B12, folic acid and MMA in 6 weeks and continue oral supplementation, continue Aranesp voiding adequately. Nephrology recommending avoiding nephrotoxins and monitor urine output. Dr. Reddy is recommended completed course of antibiotics with Augmentin for enterococcus and E. coli urinary tract infection. Patient has been accepted at [facility]. Patient will be discharged today in stable condition. DISCHARGE DIAGNOSES: Metabolic encephalopathy, Likely multifactorial resulting from current critical state with severe metabolic acidosis, severe sepsis, PETE, and following conditions listed below. Severe sepsis with septic shock requiring vasopressors, possibly urinary tract infection Acute GI bleed with reports of coffee-ground emesis Acute on chronic anemia slightly below baseline hemoglobin of 9, acute blood loss anemia Suspected IMAGING SERVICES DIRECTOR malignancy with vaginal bleeding, resolved Acute DVT of left lower extremity Acute hypoxic respiratory failure, recent admission for Covid 19 pneumonitis from 07/29/21 through 08/04/21 Acute kidney injury on chronic kidney disease stage III Severe Metabolic acidosis Lactic acidosis Enterococcus faecium and E. coli UTI Atrial fibrillation with RVR, paroxysmal atrial fibrillation Elevated troponin, flat, likely secondary to RVR Chronic diastolic heart failure with previously known EF of 55-60% Diabetes mellitus type 2 insulin requiring, uncontrolled with hyperglycemia. Incidental finding on imaging: CT reported new complex 6 x 4 cm cyst on right ovary which is reported being new compared to previous exam -Previous surgical report from 06/20/21 stated findings of a 3.5 cm lesion on right ovary concerning for potential ovarian cancer Oncology consult appreciated Hypertension. Hyperlipidemia DISCHARGE PLAN Subacute rehab at [facility]. Greater than 35 minutes was utilized and coordinating patient's discharge. Impression and plan of care have been directed as dictated by the signing physician. Thais Scott nurse practitioner acting as scribe for signing physician. Patient Condition at Discharge: Serious Plan - Discharge Summary Discharge Rx Participant: Yes New Discharge Prescriptions: New Apixaban [Eliquis] 5 mg PO BID #60 tab Darbepoetin Steven [Aranesp] 25 mcg SQ Q7D each Folic Acid 1 mg PO DAILY tab Ammonium Lactate Lotion [Lac-Hydrin 12% Lotion] 1 applic TOPICAL BID Metoprolol Tartrate [Lopressor] 25 mg PO BID tab Famotidine [Pepcid] 20 mg PO DAILY tab Acetaminophen Tab [Tylenol] 650 mg PO Q6HR PRN tab PRN Reason: Fever And/ Or Pain INSULIN ASPART (NovoLOG) [NovoLOG (formulary)] 0 unit SQ ACHS ml Sodium Bicarbonate Tab 650 mg PO BID tab Cyanocobalamin [Vitamin B-12] 1,000 mcg PO DAILY tab Continue FLUoxetine HCL [PROzac] 40 mg PO DAILY Calcium Acetate [PhosLo] 667 mg PO TID-W/MEALS Pravastatin Sodium [Pravachol] 40 mg PO HS Zinc Sulfate [Orazinc] 220 mg PO DAILY cap Ascorbic Acid [Vitamin C] 1,000 mg PO DAILY tab Magnesium Oxide [Mag-Ox] 400 mg PO DAILY tab valACYclovir HCL [Valtrex] 1,000 mg PO DAILY #7 tablet Discontinued Metoprolol Tartrate [Lopressor] 50 mg PO BID Oxybutynin Chloride [Ditropan] 5 mg PO BID #0 Insulin Lispro Protamin/Lispro [humaLOG Mix 75-25 Kwikpen] See Protocol SQ AC-TID INSULIN ASPART (NovoLOG) [NovoLOG (formulary)] See Protocol SQ ACHS Acetaminophen [Tylenol Extra Strength] 1,000 mg PO BID PRN PRN Reason: Pain Apixaban [Eliquis] 2.5 mg PO BID 30 Days #60 tab Discharge Medication List FLUoxetine HCL [PROzac] 40 mg PO DAILY 10/18/18 [History] Calcium Acetate [PhosLo] 667 mg PO TID-W/MEALS 06/20/21 [History] Pravastatin Sodium [Pravachol] 40 mg PO HS 06/20/21 [History] Ascorbic Acid [Vitamin C] 1,000 mg PO DAILY tab 08/01/21 [Rx] Zinc Sulfate [Orazinc] 220 mg PO DAILY cap 08/01/21 [Rx] Magnesium Oxide [Mag-Ox] 400 mg PO DAILY tab 08/04/21 [Rx] valACYclovir HCL [Valtrex] 1,000 mg PO DAILY #7 tablet 08/04/21 [Rx] Acetaminophen Tab [Tylenol] 650 mg PO Q6HR PRN tab 08/26/21 [Rx] Ammonium Lactate Lotion [Lac-Hydrin 12% Lotion] 1 applic TOPICAL BID 08/26/21 [Rx] Apixaban [Eliquis] 5 mg PO BID #60 tab 08/26/21 [Rx] Cyanocobalamin [Vitamin B-12] 1,000 mcg PO DAILY tab 08/26/21 [Rx] Darbepoetin Steven [Aranesp] 25 mcg SQ Q7D each 08/26/21 [Rx] Famotidine [Pepcid] 20 mg PO DAILY tab 08/26/21 [Rx] Folic Acid 1 mg PO DAILY tab 08/26/21 [Rx] INSULIN ASPART (NovoLOG) [NovoLOG (formulary)] 0 unit SQ ACHS ml 08/26/21 [Rx] Metoprolol Tartrate [Lopressor] 25 mg PO BID tab 08/26/21 [Rx] Sodium Bicarbonate Tab 650 mg PO BID tab 08/26/21 [Rx] Follow up Appointment(s)/Referral(s): Victor Manuel Lotfon MD [STAFF PHYSICIAN] - 10/07/21 11:15 am (Appt is is at office located at [address] [place] [address], behind [facility]) Eugenia Sanchez MD [STAFF PHYSICIAN] - 1 Week [facility] [NON-STAFF] - As Needed [facility], [NON-STAFF] - As Needed Activity/Diet/Wound Care/Special Instructions: Eliquis will be covered with $45 copay Discharge Disposition: TRANSFER TO SNF/ECF
[2021-08-26 16:24] VITALS: BP 138/67; PULSE 64; TEMP 97.6
[2021-08-26 16:29] LABS: Glucose,Whole Blood 139 mg/dL (75-99)
--- NOTE | 2021-08-26 19:13 | PN ---
PROGRESS NOTE DATE OF SERVICE: 08/26/2021 REASON FOR FOLLOW UP: Urinary tract infection. INTERVAL HISTORY: The patient is afebrile. The patient is breathing comfortably on room air. The patient denies having any chest pain, shortness of breath or cough. No abdominal pain or diarrhea. PHYSICAL EXAMINATION: Blood pressure 132/67 with a pulse of 64, temperature 97.6. She is 98% on room air. General description is an elderly female lying in bed in no distress. Respiratory system: Unlabored breathing, decreased breath sounds at the base, no wheeze. Heart S1, S2. Regular rate and rhythm. Abdomen soft, no tenderness. LABS: White count 8.1, hemoglobin 13.8. DIAGNOSTIC IMPRESSION AND PLAN: Patient with E coli urinary tract infection, covered with Zosyn. Can be transitioned to oral Augmentin at discharge and close outpatient followup. MMODL / IJN: [id number] /
== END 2021-08-26 18:58 | DRG 871 ==
LOC: EC 22:38 → 3SCARD 08-17 04:13 → 2SICU 08-17 22:15 → 3SCARD 08-21 18:33
PROVIDERS: ADMIT Internal Medicine Geriatric Medicine; ATTEND Internal Medicine Geriatric Medicine
PROC: 05H533Z Insertion of Infusion Device into Right Subclavian Vein, Percutaneous Approach (ICD-10-PCS; principal; 2021-08-17)
PROC: 3E043XZ Introduction of Vasopressor into Central Vein, Percutaneous Approach (ICD-10-PCS; 2021-08-17)
PROC: 30233N1 Transfusion of Nonautologous Red Blood Cells into Peripheral Vein, Percutaneous Approach (ICD-10-PCS; 2021-08-19)
DX: A41.51 Sepsis due to Escherichia coli [E. coli] (principal); J96.01 Acute respiratory failure with hypoxia; R65.21 Severe sepsis with septic shock; G92.8 Other toxic encephalopathy; I21.A1 Myocardial infarction type 2; K63.2 Fistula of intestine; N17.9 Acute kidney failure, unspecified; I82.432 Acute embolism and thrombosis of left popliteal vein; E87.4 Mixed disorder of acid-base balance; I13.0 Hypertensive heart and chronic kidney disease with heart failure and stage 1 through stage 4 chronic kidney disease, or unspecified chronic kidney disease; I42.9 Cardiomyopathy, unspecified; I48.19 Other persistent atrial fibrillation; D62 Acute posthemorrhagic anemia; K90.9 Intestinal malabsorption, unspecified; K92.2 Gastrointestinal hemorrhage, unspecified; I50.32 Chronic diastolic (congestive) heart failure; N39.0 Urinary tract infection, site not specified; J98.11 Atelectasis; Z16.24 Resistance to multiple antibiotics; A41.81 Sepsis due to Enterococcus; E86.0 Dehydration; I27.20 Pulmonary hypertension, unspecified; D63.1 Anemia in chronic kidney disease; Z43.2 Encounter for attention to ileostomy; E11.22 Type 2 diabetes mellitus with diabetic chronic kidney disease; E11.42 Type 2 diabetes mellitus with diabetic polyneuropathy; E11.65 Type 2 diabetes mellitus with hyperglycemia; N18.31 Chronic kidney disease, stage 3a; J44.9 Chronic obstructive pulmonary disease, unspecified; Z79.4 Long term (current) use of insulin; Z20.822 Contact with and (suspected) exposure to COVID-19; D53.9 Nutritional anemia, unspecified; D75.89 Other specified diseases of blood and blood-forming organs; E86.1 Hypovolemia; E78.5 Hyperlipidemia, unspecified; E87.5 Hyperkalemia; E87.6 Hypokalemia; E83.42 Hypomagnesemia; N93.9 Abnormal uterine and vaginal bleeding, unspecified; I25.10 Atherosclerotic heart disease of native coronary artery without angina pectoris; N64.2 Atrophy of breast; I08.1 Rheumatic disorders of both mitral and tricuspid valves; E53.8 Deficiency of other specified B group vitamins; I25.2 Old myocardial infarction; Z87.01 Personal history of pneumonia (recurrent); K57.30 Diverticulosis of large intestine without perforation or abscess without bleeding; D25.9 Leiomyoma of uterus, unspecified; D47.2 Monoclonal gammopathy; F32.A Depression, unspecified; F41.9 Anxiety disorder, unspecified; N83.291 Other ovarian cyst, right side; M19.90 Unspecified osteoarthritis, unspecified site; E66.9 Obesity, unspecified; Z68.36 Body mass index [BMI] 36.0-36.9, adult; Z79.01 Long term (current) use of anticoagulants; Z79.899 Other long term (current) drug therapy; Z86.16 Personal history of COVID-19; Z87.891 Personal history of nicotine dependence; Z86.14 Personal history of Methicillin resistant Staphylococcus aureus infection; Z90.49 Acquired absence of other specified parts of digestive tract; Z87.19 Personal history of other diseases of the digestive system; Z98.891 History of uterine scar from previous surgery; Z98.42 Cataract extraction status, left eye; Z98.41 Cataract extraction status, right eye; Z96.1 Presence of intraocular lens; Z85.038 Personal history of other malignant neoplasm of large intestine; Z87.440 Personal history of urinary (tract) infections; Z98.890 Other specified postprocedural states; Z71.3 Dietary counseling and surveillance; Z88.5 Allergy status to narcotic agent; Z84.89 Family history of other specified conditions; Z80.9 Family history of malignant neoplasm, unspecified
CPT/HCPCS: 36415; 36600; 71045; 71250; 74176; 76770; 76856; 78580; 80048; 80053; 80306; 81001; 81503; 82272; 82533; 82607; 82668; 82728; 82746; 82784; 82805; 83540; 83550; 83605; 83615; 83735; 83883; 83921; 84145; 84165; 84443; 84484; 85025; 85027; 85045; 85384; 85598; 85610; 85613; 85652; 85730; 85732; 86146; 86147; 86334; 86850; 86900; 86901; 86920; 87040; 87077; 87086; 87186; 87635; 93005; 93306; 93970; 96374; 96375; 99285